=== PATIENT | female | born 1970 | race African-American/Black ===

== ENCOUNTER 2024-07-23 08:38 | Emergency (ER) | payer SELFPAY ==
[2024-07-23 08:49] VITALS: BP 145/87; PULSE 59; TEMP 36.8; O2SAT 100; BMI 44.4
--- NOTE | 2024-07-23 09:07 | ED_ITS ---
HPI HPI - General Adult General Chief complaint: Back Pain/Injury Stated complaint: FLARE UP Time Seen by Provider: 07/23/24 08:42 Source: patient Mode of arrival: Wheelchair History of Present Illness HPI narrative: Patient presents to ED complaining of right sided back pain that radiates down her right leg. She said yesterday she was working out at the [email or web address] and overdid it. She was doing water aerobics and she is trying to learn how to swim and she thinks she was arching her back too much and she tweaked her back. She said she has a history of MS and sometimes her back pain flares up. She said usually she just needs a shot of Toradol and it takes the pain and spasms away. She said she had a few severe muscle spasms on the way here in the car. Denies any neurological deficit no numbness or tingling in her legs she just has the pain that radiates down the right leg. This is typical of her back flareup. Opioid HPI Opioid Management Most Recent Opioid Data: Last Pain Scale 6 07/23/24 08:53 07/23/24 Review of Systems ROS Status of ROS 10 or more systems reviewed and unremark able except as noted in history and below PFSH PFSH Social History Little interest or pleasure in doing things: not at all Feeling down, depressed, or hopeless: not at all Exam Narrative Exam Narrative: General: alert, no acute distress Cardiovascular: regular rate and rhythm, normal peripheral perfusion. Respiratory: Lungs CTA, respirations non labored. Extremities: no deformity, no trauma. 5 out of 5 muscle strength x 4 extremities. Normal distal sensation and pulses. Tenderness in the right lumbar paraspinal Neurological: oriented x 4, LOC appropriate for age. Constitutional Vital Signs, click to edit/add: Last Vital Signs Temp 98.2 F 07/23/24 08:49 Pulse 59 L 07/23/24 08:49 Resp 18 07/23/24 08:49 BP 145/87 H 07/23/24 08:49 Pulse Ox 100 07/23/24 08:49 O2 Del Method Room Air 07/23/24 08:49 Course Vital Signs Vital signs: Vital Signs Temperature 98.2 F 07/23/24 08:49 Pulse Rate 59 L 07/23/24 08:49 Respiratory Rate 18 07/23/24 08:49 Blood Pressure 145/87 H 07/23/24 08:49 Pulse Oximetry 100 07/23/24 08:49 Oxygen Delivery Method Room Air 07/23/24 08:49 Temperature 98.2 F 07/23/24 08:49 Pulse Rate 59 L 07/23/24 08:49 Respiratory Rate 18 07/23/24 08:49 Blood Pressure 145/87 H 07/23/24 08:49 Pulse Oximetry 100 07/23/24 08:49 Oxygen Delivery Method Room Air 07/23/24 08:49 Medical Decision Making MDM Narrative Medical decision making narrative: Patient states that Toradol typically helps her back pain. She did reports m uscle spasms on the way here so I also gave her Norflex. Return to ED if worsening symptoms such as numbness weakness loss of bowel or bladder habits. Follow-up with your primary doctor or neurologist outpatient. Vital signs stable no fever. Patient is comfortable care plan for home. Differential Diagnosis Differential Diagnosis: Sciatica, lumbar strain lumbar sprain cauda equina Discharge Plan Discharge Chief Complaint: Back Pain/Injury Clinical Impression: Sciatica Patient Disposition: Home, Self-Care Time of Disposition Decision: 09:31 Condition: Good Mode of Transportation: Private Vehicle Print Language: Japanese Instructions: Acute Low Back Pain (ED) Referrals: Physician,Non-Staff, MD [Primary Care Provider] - 1 week
[2024-07-23] MEDS: ORPHENADRINE 60 MG/ 2 ML VIAL IM (09:15)
[2024-07-23] MEDS: KETOROLAC TROMETHAMINE 60 MG/2 ML VIAL IM (09:16)
== END 2024-07-23 09:38 | disposition home or self-care (01) ==
PROVIDERS: Emergency Provider Emergency Medicine
DX: M54.31 Sciatica, right side (principal); G35 Multiple sclerosis
CPT/HCPCS: 96372; 99284; J1885; J2360

== ENCOUNTER 2024-08-29 08:45 | Emergency (ER) | payer MEDICAID, SELFPAY ==
[2024-08-29 08:50] VITALS: BP 135/89; PULSE 69; TEMP 36.8; O2SAT 99; BMI 48.5
--- NOTE | 2024-08-29 09:05 | ED.NAVMDI1 ---
HPI - Nausea/Vomiting/Diarrhea General Chief complaint: Nausea/Vomiting/Diarrhea Stated complaint: flu like symptoms Time Seen by Provider: 08/29/24 08:54 Source: patient Mode of arrival: walk-in Limitations: no limitations History of Present Illness HPI Narrative: yesterday morning woke with nausea and began vomiting. Diarrhea started shortly after. Pt complains of achiness and mild headache that began this morning. She said she 'felt hot but is afebrile here. Said she tried to sip water this morning and I threw it back up . She said that her significant other has similar symptoms that began yesterday as well. Related Data Home Medications ?Medication ?Instructions ?Recorded ?Confirmed atorvastatin 20 mg tablet 20 mg PO .QHS 08/29/24 08/29/24 baclofen 20 mg tablet 20 mg PO BID 08/29/24 08/29/24 duloxetine 30 mg capsule,delayed 60 mg PO .QHS 08/29/24 08/29/24 release ergocalciferol (vitamin D2) 1,250 50,000 unit PO QWEEK 08/29/24 08/29/24 mcg (50,000 unit) capsule pregabalin 300 mg capsule 300 mg PO BID 08/29/24 08/29/24 Previous Rx's ?Medication ?Instructions ?Recorded ondansetron 4 mg disintegrating 4 mg PO Q6H PRN nausea and 08/29/24 tablet vomiting #20 tabs Allergies Allergy/AdvReac Type Severity Reaction Status Date / Time No Known Drug Allergies Allergy Verified 08/29/24 08:50 PFSH PFSH Social History Little interest or pleasure in doing things: not at all Feeling down, depressed, or hopeless: not at all Exam Narrative Exam Narrative: Nurses notes and vital signs reviewed and patient is not hypoxic. afebrile General: Well-appearing and in no apparent distress. Skin: Warm, dry, no pallor noted. Head: Normocephalic, atraumatic. Neck: Supple, non-tender. No meningismus Eye: Pupils are equal, round and EOMI. No scleral icterus. Ears, Nose, Mouth, and Throat: Oral mucosa is moist Cardiovascular: Regular Rate and Rhythm without murmur, gallop or rub. Respiratory: No accessory muscle use or respiratory distress. Lungs are clear to auscultation, no wheezing, rales or rhonchi Back: No CVA tenderness Musculoskeletal: normal ROM GI: Abdomen is soft, non-distended. Normal bowel sounds. No masses appreciated. No tenderness to palpation. No rebound, guarding, or rigidity noted. Neurological: A&O x4. No cranial nerve dysfunction observed. No truncal ataxia. Moves all extremities. Sensation intact. Psychiatric: Cooperative and interactive. Normal mood and affect. Constitutional Vital Signs, click to edit/add: Last Vital Signs Temp 98.3 F 08/29/24 08:50 Pulse 69 08/29/24 08:50 Resp 18 08/29/24 08:50 BP 135/89 08/29/24 08:50 Pulse Ox 99 08/29/24 08:50 O2 Del Method Room Air 08/29/24 08:50 Course Vital Signs Vital signs: Vital Signs Temperature 98.3 F 08/29/24 08:50 Pulse Rate 69 08/29/24 08:50 Respiratory Rate 18 08/29/24 08:50 Blood Pressure 135/89 08/29/24 08:50 Pulse Oximetry 99 08/29/24 08:50 Oxygen Delivery Method Room Air 08/29/24 08:50 Temperature 98.3 F 08/29/24 08:50 Pulse Rate 69 08/29/24 08:50 Respiratory Rate 18 08/29/24 08:50 Blood Pressure 135/89 08/29/24 08:50 Pulse Oximetry 99 08/29/24 08:50 Oxygen Delivery Method Room Air 08/29/24 08:50 MDM - Nausea/Vomiting/Diarrhea MDM Narrative Medical decision making narrative: Patient with nausea, vomiting, diarrhea. Apparently her significant other has similar symptoms. Vital signs are normal at this time. She was given an oral dissolvable tab of Zofran and monitored for about 15 to 20 minutes. On recheck her nausea had dissipated. She was able to eat a popsicle without vomiting and was given tylenol orally with some ice water. She reported resolution of her nausea and decrease in her headache. She was discharged home with prescription for odt zofran and recommendation to maintain clear liquid diet until nausea and vomiting subside. Discharge Plan Discharge Chief Complaint: Nausea/Vomiting/Diarrhea Clinical Impression: Gastroenteritis Patient Disposition: Home, Self-Care Time of Disposition Decision: 09:56 Prescriptions / Home Meds: New ondansetron 4 mg tablet,disintegrating 4 mg PO Q6H PRN (Reason: nausea and vomiting) Qty: 20 0RF No Action atorvastatin 20 mg tablet 20 mg PO .QHS baclofen 20 mg tablet 20 mg PO BID ergocalciferol (vitamin D2) 1,250 mcg (50,000 unit) capsule 50,000 unit PO QWEEK duloxetine 30 mg capsule,delayed release(DR/EC) 60 mg PO .QHS pregabalin 300 mg capsule 300 mg PO BID Print Language: Surinamese Instructions: Gastroenteritis (ED) Referrals: Physician,Non-Staff, MD [Primary Care Provider] - 1 week
[2024-08-29] MEDS: ONDANSETRON 4 MG RAPDIS TABLET SL (09:10)
[2024-08-29] MEDS: ACETAMINOPHEN 500 MG TABLET 1000 MG PO (09:43)
[2024-08-29 10:01] VITALS: BP 130/76; PULSE 64; O2SAT 98
== END 2024-08-29 10:00 | disposition home or self-care (01) ==
PROVIDERS: Emergency Provider Emergency Medicine
DX: K52.9 Noninfective gastroenteritis and colitis, unspecified (principal)
CPT/HCPCS: 99283; Q0162

== ENCOUNTER 2024-09-13 07:08 | Emergency (ER) | payer MEDICAID, SELFPAY ==
[2024-09-13 07:15] VITALS: BP 157/67; PULSE 71; TEMP 37.2; O2SAT 100; BMI 44.4
--- OUTSIDE RECORDS SUMMARY | 2024-09-13 07:21 | XMS_ITS | CCD ---
Author Organization [facility] Care Team Providers Care Director Private Music Therapy Agency Name Role Phone CLINKER, GORAN Admitting Unavailable HESS, AQUILES S Attending Unavailable CLINKER, GORAN Consulting Unavailable FAMILY, HEALTH SERVICES Consulting Unavaila ble HESS, AQUILES S Admitting Unavailable HESS, AQUILES S Attending Unavailable FAMILY, HEALTH SERVICES Primary Care Unavaila ble HESS, AQUILES S Consulting Unavailable HESS, AQUILES S Admitting Unavailable HESS, AQUILES S Attending Unavailable FAMILY, HEALTH SERVICES Primary Care Unavaila ble CLINKER, GORAN Consulting Unavailable CLINKER, GORAN Admitting Unavailable CLINKER, GORAN Attending Unavailable SELF, REFERRED Referring [facility] Primary Care Unavailable ANUSHA SALVADOR Admitting Unavailable ANUSHA SALVADOR Attending Unavailable Spasic, Robe E Unavailable Schwerer DO, Rina E Primary Care Provider [phone] Schwerer DO, Rina E Unavailable Schwerer, Rina Unavailable Spasic, Robe E Unavailable Schwerer DO, Rina E Primary Care Provider Schwerer DO, Rina E Unavailable Spasic, Robe E Unavailable Schwerer DO, Rina E Primary Care Provider [phone] Schwerer DO, Rina E Unavailable Spasic, Robe E Unavailable Schwerer DO, Rina E Primary Care Provider Schwerer DO, Rina E Unavailable Schwerer, DO Rina E Primary Care Provider [phone] Schwerer, DO Rina E Attending Provider [facility], [facility] Primary Care Provider ROBERT MckeonC Robe Garnica Referring Provider [phone] MARINO Gonzáles Attending Provider Schwerer, DO Rina E Primary Care Provider Tupa, DO Jaswant Crowley Emergency Provider Sandro Burgos MD Primary Care Prov ider Spasi SPEECH LANGUAGE THERAPIST, Robe Garnica Unavailable Schwerer DO, Rina E Unavailable Unavailable Primary Care Provider Unavailabl danika Almeidar, DO Rina E Primary Care Provider MD Sandro Burgos Attending Provide r JEFFERY CANTU Referring Unavailable RAN JOSÉ Referring Unavailable JEFFERY CANTU Attending Unavailable JEFFERY CANTU Referring Unavailable OSMAN BOWMAN Attending Unavailable COLLINS GALLO Primary Care Unavailable PAM ASHER Referring Unavailable PAM ASHER Referring Unavailable PAM ASHER Referring Unavailable Sandro Burgos MD Primary Care Prov ider NO FAMILY, PHYSICIAN Primary Care Provider Unava ilable REAL Kemp Attending Provider Schwerer, Rina E Primary Care Unavailable Jaswant Freitas Attending Unavailable Jaswant Freitas Admitting Unavailable Sandro Burgos Attending Unav ailable Sandro Burgos Admitting Unav ailable Schwerer, Rina E Primary Care Unavailable Raymond Kemp Attending Unavailable Raymond Kemp Admitting Unavailable NO FAMILY, PHYSICIAN Primary Care Unavailable Kim RPh, Paulo Unavailable Unavailable Schwerer DO, Rina E Unavailable Unavailable Primary Care Provider Unavailabl e SARAIYA, YOUSIF Attending Unavailable NAIN YOUSIF Admitting Unavailable REQUEST, IP PHYSICAL THERAPY SERVICE Consulting Unavailable REQUEST, IP OCCUPATIONAL THERAPY SERVICE Consult ing Unavailable CONSULT, IP NEUROLOGY Consulting Unavailabl e CONSULT, IP OPHTHAMOLOGY Consulting Unavail able PROVIDER, UNKNOWN Admitting Unavailable PROVIDER, UNKNOWN Attending Unavailable Kelly CATALYST IMPREGNATOR.COMPENSATION CONSULTING MANAGERAlpa Unavailable Larry CATALYST IMPREGNATOR.COMPENSATION CONSULTING MANAGER, Ciera Moore Unavailable [phone] SABINO HINOJOSA, SANDRO Primary Care Unav ailable RAYMOND KEMP Attending Unavailable GALLO URMILA, SANDRO Primary Care Unav ailable SAL MALLOY Attending Unavailable FREDA HERNANDEZ Attending Unavailable SAL MALLOY Referring Unavailable GALLO URMILA, SANDRO Primary Care Unav ailable RAYMOND KEMP Attending Unavailable GALLO URMILA, SANDRO Primary Care Unav ailable GALLO URMILA, SANDRO Primary Care Unav ailable FREDA HERNANDEZ Referring Unavailable RAYMOND KEMP Attending Unavailable GALLO URMILA, SANDRO Primary Care Unav ailable GALLO URMILA, SANDRO Primary Care Unav ailable RAYMOND KEMP Referring Unavailable GALLO URMILA, SANDRO Primary Care Unav ailable RAYMOND KEMP Referring Unavailable GALLO URMILA, SANDRO Primary Care Unav ailable RAYMOND KEMP Referring Unavailable FREDA HERNANDEZ Attending Unavailable GALLO URMILA, SANDRO Primary Care Unav ailable GALLO URMILA, SANDRO Primary Care Unav ailable RAYMOND KEMP Referring Unavailable RAYMOND KEMP Attending Unavailable GALLO URMILA, SANDRO Primary Care Unav ailable Allergies Allergy Classification Reported Allergen(s) Allergy Type Date of Onset Reaction(s) Facility [facility] (1 source) traMADol Drug Allergy 0 [facility] (3 sources) NSAIDs; Translations: [NSAIDS (NON-STEROIDAL ANTI-INFLAMMATO RY DRUG)] Drug allergy (disorder) 0 [facility] (5 sources) Non-steroidal anti-inflammato ry agent Drug Allergy 0 Other: See [facility] (20 sources) traMADol; Translations: [TRAMADOL] Drug Allergy 0 Other: See Comments, [facility] (16 sources) NSAIDs Propensity to adverse reactions 4 Unknown [facility] (20 sources) Non-steroidal anti-inflammato ry agent Drug Allergy 0 Other: See Comments, [facility] (6 sources) NSAIDS (Non-Steroidal Anti-Inflamma; Translations: [NSAIDS (Non-Steroidal Anti-Inflamma] Allergy to substance 2 Rash [facility] (1 source) traMADol Drug Allergy 3 [facility] Repository Medications Current Medications Medication Drug Class(es) Dates Sig (Normalized) Sig (Original) atorvastatin 20 mg oral tablet (20 sources) HMG-CoA Reductase Inhibitor Start: 07-28-2019 End: 01-30-2025 take 1 tablet by mouth once daily atorvastatin (LIPITOR) 20 mg tablet Indications: Mixed hyperlipidemia Take 1 tablet by mouth once daily. 90 tablet 01/31/2024 01/30/2025 Active Comment on above: Take 20 mg by mouth once daily. Take 1 tablet by janeth th once daily. cetirizine hydrochloride 10 mg oral tablet (17 sources) Histamine-1 Receptor Antagonist Start: 08-22-2021 take 1 tablet by mouth every twenty-four hours Cetirizine HCl 10 MG 1 tablet Orally Once a day for 30 day(s) Aug, Active Start: 08-22-2021 End: 08-17-2022 cetirizine (ZYRTEC) 10 mg ta blet Take by mouth q 24 HR. 0 08/22/2021 08/17/2022 Discontinued (Course of therapy completed) Comment on above: Take by mouth q 24 H R. DULoxetine 60 mg delayed release oral capsule (20 sources) Serotonin and Norepinephrine Reuptake Inhibitor Start: 4 take 2 capsules by mouth at bedtime DULoxetine (CYMBALTA) 30 MG capsule Take 60 mg by mouth at bedtime. 05/08/2024 Active Start: 10-04-2023 End: 11-19-2024 take 1 capsule by mouth once daily at bedtime DULoxetine (CYMBALTA) 60 mg capsule Indications: Multiple sclerosis (HCC) , Neuropathic pain Take 1 capsule by mouth daily at bedtime. 90 capsule 08/21/2024 11/19/2024 Active Start: 08-30-2023 End: 08-21-2024 take 1 capsule by mouth once daily at bedtime, then take 2 capsules by mouth once daily at bedtime DULoxetine (CYMBALTA) 30 mg capsule Indications: Multiple sclerosis (HCC) , Neuropathic pain Take 1 capsule by mouth daily at bedtime for 7 days, THEN 2 capsules daily at bedtime. 67 capsule 05/08/2024 08/21/2024 Discontinued Start: 12-10-2020 End: 01-18-2021 take 60 mg by mouth once daily at bedtime Duloxetine Discontinued 60 MG PO Daily at bedtime December 10, 2020 12:00am January 18, 2021 3:46am Comment on above: Take 1 capsule by mo uth daily at bedtime for 7 days, THEN 2 capsules daily at bedtime. Take 1 capsule by mo uth daily at bedtime. Patient should start on October 04, 2023. ergocalciferol 1.25 mg oral capsule (20 sources) Provitamin D2 Compound Start: 07-06-20 End: 02-18-20 take 1 capsule by mouth every week ergocalciferol 50,000 unit capsule (VITAMIN D2, DRISDOL) Indications: Multiple sclerosis (HCC) , Vitamin D deficiency Take 1 capsule by mouth one time a week. 12 capsule 1 08/21/2024 02/17/2025 Active Start: 08-23-2020 End: 08-17-2022 take 1 capsule by mouth every week ergocalciferol 50,000 unit capsule (VITAMIN D2, DRISDOL) Take 1 capsule by mouth one time a week. 12 capsule 1 08/23/2020 08/17/2022 Discontinued (Course of therapy completed) Comment on above: Take 1 capsule by mo uth one time a week. eucalyptol 0.92 mg/ml / menthol 0.42 mg/ml / methyl salicylate 0.6 mg/ml / thymol 0.64 mg/ml mouthwash (3 sources) Start: 023 take 15 mL by mouth every eight hours as needed Mouthwashes (Biotene Dry Mouth) LIQD 15 mL by Transmucosal route every 8 hours as needed. 07/19/2023 Active famotidine 20 mg oral tablet (20 sources) Histamine-2 Receptor Antagonist Start: End: take 1 tablet by mouth twice daily famotidine (PEPCID) 20 mg tablet Take 20 mg by mouth two times a day. 08/13/2023 Active Comment on above: Take 20 mg by mouth two times a day. fluocinonide 0.0005 mg/mg topical ointment (3 sources) Corticosteroid Start: FLUOCINONIDE 0.05 % EX OINT Indications: Other psoriasis Apply to affected area of palm BID 30 gm 1 09/14/2006 Active hydrocortisone 5 mg/ml topical cream (20 sources) Corticosteroid Start: End: hydrocortisone 0.5 % cream Indications: Rash APPLY TO AFFECTED AREA TWO TIMES A DAY FOR 7 DAYS. 56.8 g 01/31/2024 01/30/2025 Active Start: 09-20-2023 End: 09-20-2023 hydrocortisone 0.5 % ointmen t Indications: Rash Apply to affected area two times a day for 7 days. 56 g 0 09/20/2023 09/20/2023 Discontinued Comment on above: Apply to affected ar ea two times a day for 7 days. ketorolac tromethamine 10 mg oral tablet (18 sources) Nonsteroidal Anti-inflammatory Drug, Cyclooxygenase Inhibitor Start: End: take 1 tablet by mouth every six hours as needed keTORolac (TORADOL) 10 mg tablet Indications: Fibroids Take 1 tablet by mouth every 6 hours as needed. Do not use while taking NSAIDs including ibuprofen 20 tablet 1 08/21/2024 Active Start: 08-13-2023 End: 08-13-2023 ketorolac (TORADOL) injectio n 30 mg lidocaine 0.05 mg/mg medicated patch (20 sources) Antiarrhythmic, Amide Local Anesthetic Start: 07-10-2024 apply 2 doses transdermal route every twenty-four hours 2 Patch, Transdermal, EVERY 24 HOURS, First dose on Sun07/10/24 at 0900, Until Discontinued Start: 07-08-2024 End: 07-08-2024 apply 1 dose transdermal route every twenty-four hours 1 Patch, Transdermal, EVERY 24 HOURS, First dose on 12/3/24 at 1000, Until Discontinued Start: 07-07-2024 End: 07-08-2024 apply 2 doses transdermal route every twenty-four hours 2 Patch, Transdermal, EVERY 24 HOURS, First dose on Sun07/07/24 at 1455, Until Discontinued Start: 07-19-2023 End: 08-21-2024 apply 1 dose transdermal route once daily, then apply 1 dose transdermal route every twelve hours lidocaine (LIDODERM) 5 % Indications: Multiple sclerosis (HCC) , Chronic bilateral low back pain without sciatica Apply 1 Patch as directed once daily. to affected area. Remove patch after 12 hours. 15 Patch 1 08/21/2024 Active Start: 06-16-2022 Lidocaine 5 % 1 patch remove after 12 hours Externally Once a day for 30 days Jun, Active Start: 08-30-2021 End: 08-21-2024 apply 1 dose transdermal route once daily lidocaine HCL 4 % ptmd Indications: Pelvic pain in female Apply 1 Patch to affected area once daily. 15 Patch 1 08/30/2021 08/21/2024 Discontinued Start: 08-30-2021 apply 1 dose transde rmal route once daily lidocaine HCL 4 % ptmd Indications: Pelvic pain in female Apply 1 Patch to affected area once daily. 15 Patch 1 08/30/2021 Active Start: 01-07-2021 End: 01-18-2021 apply 1 dose topically once daily Lidocaine (Lidoderm) 5 % adhesive patch,medicated Discontinued 1 PATCH TOPICAL Daily January 07, 2021 12:00am January 18, 2021 3:46am leave on most painful area for up to 12 hrs Start: 12-10-2020 End: 01-18-2021 apply 1 dose topically once daily Lidocaine (Lidocaine Pain Relief) 4 % Adhesive Patch,Medicated Discontinued 1 PATCH TOPICAL Daily December 10, 2020 12:00am January 18, 2021 3:46am Comment on above: Apply 1 Patch to aff ected area once daily. Apply 1 Patch as dir ected once daily. to affected area. Remove patch after 12 hours. nystatin 100 unt/mg topical powder (6 sources) Polyene Antifungal Start: 01-31-2024 End: 02-07-2024 nystatin (MYCOSTATIN) powder Indications: Rash Apply 1 application to affected area two times a day for 7 days. 1 g 0 01/31/2024 02/07/2024 Active Start: 09-20-2023 End: 09-27-2023 nystatin (MYCOSTATIN) powder Indications: Rash Apply 1 application to affected area two times a day for 7 days. 1 g 0 09/20/2023 09/27/2023 Active Comment on above: Apply 1 application to affected area two times a day for 7 days. ozanimod 0.92 mg oral capsule (20 sources) Start: 1 End: 4 take 1 capsule by mouth once daily ozanimod (ZEPOSIA) 0.92 mg capsule Indications: Multiple sclerosis (HCC) Take 1 capsule by mouth once daily. 30 capsule 3 07/02/2024 Active Comment on above: Take 1 capsule by [facility] once daily polyethylene glycol 3350 29099 mg powder for oral solution (20 sources) Osmotic Laxative Start: 3 End: 4 polyethylene glycol 3350 (MIRALAX) 17 gram/dose powder Indications: Constipation, unspecified constipation type Take 17 g by mouth two times a day. Dissolve dose in 4 - 8 ounces of liquid and take as directed. 1020 g 5 07/19/2023 01/15/2024 Active Comment on above: Take 17 g by mouth t wice daily. Dissolve dose in 4 - 8 ounces of liquid and take as directed. Take 17 g by mouth t wo times a day. Dissolve dose in 4 - 8 ounces of liquid and take as directed. pregabalin 300 mg oral capsule (20 sources) Start: 4 take 300 mg by mouth twice daily 300 mg, Oral, 2 TIMES DAILY, First dose on Sun07/09/24 at 1000, Until Discontinued Start: 07-07-2024 End: 07-07-2024 take 1 dose by mouth once 300 mg, Oral, Once, 1 dose, On Sun07/07/24 at 1705 Start: 05-21-2023 End: 09-20-2024 take 1 capsule by mouth twice daily pregabalin (LYRICA) 300 mg capsule Indications: Multiple sclerosis (HCC) , Neuropathic pain Take 1 capsule by mouth two times a day for 30 days. 60 capsule 08/21/2024 09/20/2024 Active Start: 09-26-2021 End: 05-18-2023 take 1 capsule by mouth twice daily pregabalin (LYRICA) 300 mg capsule Indications: Neuropathic pain , Multiple sclerosis (HCC) Take 1 capsule by mouth twice daily for 30 days. 60 capsule 0 04/18/2023 05/18/2023 Active Start: 12-23-2019 End: 12-05-2020 take 150 mg by mouth twice daily Pregabalin Active 150 MG PO Twice daily December 05, 2020 12:00am Comment on above: Take 1 capsule by mo uth twice daily for 180 days. Take 1 capsule by mo uth twice daily for 30 days. Take 1 capsule by mo uth two times a day for 120 days. salicylic acid 60 mg/ml topical cream (3 sources) Start: 08-21-2006 SALEX 6 % EX CREA apply to affected areas bid 1 large trade 1 08/21/2006 Active 5 ml sodium chloride 9 mg/ml injection (1 source) Start: 08-14-2023 End: 08-15-2023 sodium chloride flush 0.9 % injection 5-40 mL Completed/Discontinued Medications Medication Drug Class(es) Dates Sig (Normalized) Sig (Original) acetaminophen 500 mg oral tablet (20 sources) Start: 07-09-2024 take 500 mg by mouth every six hours 500 mg, Oral, Every 6 hours, First dose (after last modification) on Sun07/09/24 at 1000, Until Discontinued Start: 07-07-2024 End: 07-09-2024 500 mg, Oral, EVERY 8 HOURS PRN, Starting on Sun07/07/24 at 1646, Until Sun07/09/24 at 0912, Mild Pain (pain score 1,2,3), Moderate Pain (pain score 4,5,6), Severe Pain (pain score 7,8,9,10) Start: 07-19-2023 take 2 tablets by mo uth three times daily as needed for pain acetaminophen (TYLENOL EXTRA STRENGTH) 500 mg tablet Indications: Breast pain in female Take 2 tablets by mouth three times a day as needed for pain. 60 tablet 3 07/19/2023 Active Comment on above: Take 2 tablets by mo uth three times a day as needed for pain. acetaminophen 300 mg / codeine phosphate 30 mg oral tablet (7 sources) Opioid Agonist Start: End: 3 acetaminophen-codeine (TYLENOL-COD #3) 300-30 mg per tablet Take by mouth. 0 08/03/2019 08/17/2022 Discontinued (Course of therapy completed) Comment on above: Take by mouth. acetaminophen 325 mg / HYDROcodone bitartrate 5 mg oral tablet (15 sources) Opioid Agonist Start: 1 End: 1 take 1 tablet by mouth every four to six hours Hydrocodone-Acetamino phen Discontinued 1 TAB PO EVERY 4-6 HOURS 10 January 07, 2021 January 18, 2021 3:46am Start: 12-23-2019 End: 12-23-2019 take 1 tablet by mouth every four to six hours Hydrocodone-Acetaminophen (Leroy) 5-325 mg Tablet Discontinued 1 TAB PO EVERY 4-6 HOURS December 23, 2019 12:00am December 23, 2019 10:26am Start: 11-07-2018 End: 2018 take 1 tablet by mouth every six hours Hydrocodone-Acetaminophen (Leroy) 5-325 mg tablet Discontinued 1 TAB PO Q6H 5 2 November 07, 2018 2018 12:02am acetaminophen 325 mg / oxyCODONE hydrochloride 5 mg oral tablet (5 sources) Opioid Agonist Start: 08-14-2020 End: 12-04-2020 take 1 tablet by mouth every six hours Oxycodone-Acetaminophen (Percocet) 5-325 mg tablet Discontinued 1 TAB PO Q6H 5 2 August 14, 2020 December 04, 2020 6:31pm albuterol 0.833 mg/ml / ipratropium bromide 0.167 mg/ml inhalation solution (1 source) Anticholinergic, beta2-Adrenergic Agonist Start: 07-07-2024 End: 07-07-2024 3 mL, Nebulization, STAT, 1 dose, On 07/07/24 at 1223 ARIPiprazole 30 mg oral tablet (12 sources) Atypical Antipsychotic Start: 12-23-2019 End: 08-17-2022 take 1 tablet by mouth once daily Aripiprazole (Abilify) 30 mg Tablet Discontinued 30 MG PO Daily December 23, 2019 12:00am December 04, 2020 10:12pm Comment on above: 30 mg. baclofen 20 mg oral tablet (20 sources) gamma-Aminobutyri c Acid-ergic Agonist Start: 07-07-2024 take 40 mg by mouth at bedtime 40 mg, Oral, AT BEDTIME, First dose on Sun07/07/24 at 2200, Until Discontinued Start: 07-19-2023 take 1 tablet by janeth th in the morning, then take 2 tablets by mouth in the evening baclofen 20 mg tablet Indications: Multiple sclerosis (HCC) , Spasticity Take 1 tablet (20mg) by mouth in the morning and afternoon and 2 tablets (40 mg) by mouth in the evening 360 tablet 1 01/31/2024 Active Start: 12-05-2020 End: 01-31-2024 take 1 tablet by mouth in the morning, then take 2 tablets by mouth in the evening baclofen 20 mg tablet Indications: Multiple sclerosis (HCC) , Spasticity Take 1 tablet (20mg) by mouth in the morning and afternoon and 2 tablets (40 mg) by mouth in the evening 360 tablet 1 01/31/2024 Active Start: 12-23-2019 End: 12-05-2020 take 20 mg by mouth three times daily Baclofen Discontinued 20 MG PO Three times daily December 23, 2019 12:00am December 05, 2020 3:20am Comment on above: Take 1 tablet by janeth th three times daily. Take 1 tablet (20mg) by mouth in the morning and afternoon and 2 tablets (40 mg) by mouth in the evening BIOTENE MOISTURIZING MOUTH spray SOLN (1 source) Start: take 1 spray(s) by mouth every four hours as needed 1 Redkey, Topical, EVERY 4 HOURS PRN, Starting on Sun07/09/24 at 0922, Until Discontinued, Dry Mouth 12 hr buPROPion hydrochloride 150 mg extended release oral tablet (5 sources) Aminoketone Start: End: take 150 mg by mouth twice daily Bupropion Hcl Discontinued 150 MG PO Twice daily January 18, 2021 12:00am January 25, 2021 1:04pm carbamide peroxide 65 mg/ml otic solution (5 sources) Start: End: Carbamide Peroxide (Debrox) 6.5 % drops Discontinued 5 DROPS OTIC Twice daily 4 January 18, 2018 12:00am January 22, 2018 12:01am tilt head to instill into ear; keep head tilted for 2-[address] cotton in ear cephalexin 500 mg oral capsule (5 sources) Cephalosporin Antibacterial Start: 018 End: take 1000 mg by mouth every twelve hours Cephalexin Discontinued 1000 MG PO Q12H 28 February 20, 2018 12:00am February 27, 2018 12:01am cholecalciferol 0.05 mg oral tablet (3 sources) Vitamin D Start: End: cholecalciferol (VITAMIN D3) 50 mcg (2,000 unit) tablet Cholecalciferol (VITAMIN D) 50 MCG (2000 UT) CAPS capsule Take 50,000 Units by mouth once a week 0 Active cyclobenzaprine hydrochloride 10 mg oral tablet (12 sources) Muscle Relaxant Start: 07-28-2019 End: 08-17-2022 take 10 mg by mouth three times daily Cyclobenzaprine Discontinued 10 MG PO Three times daily July 28, 2019 11:55am August 14, 2020 5:17pm Comment on above: 10 mg. diazePAM 5 mg oral tablet (7 sources) Benzodiazepine Start: 08-11-2019 End: 08-17-2022 diazePAM (VALIUM) 5 mg tablet Take 5 mg by mouth. 0 08/11/2019 08/17/2022 Discontinued (Course of therapy completed) Comment on above: Take 5 mg by mouth. diphenhydrAMINE hydrochloride 25 mg oral capsule (5 sources) Histamine-1 Receptor Antagonist Start: 07-28-2019 End: 12-23-2019 take 1 capsule by mouth once daily Diphenhydramine Hcl (Banophen) 25 mg capsule Discontinued 25 MG PO Daily July 28, 2019 1:00am December 23, 2019 9:28am docusate sodium 100 mg oral capsule (12 sources) Start: 05-08-2024 End: 08-06-2024 take 1 capsule by mouth twice daily as needed for constipation docusate sodium (COLACE) 100 mg capsule Indications: Multiple sclerosis (HCC) Take 1 capsule by mouth two times a day as needed for constipation. 60 capsule 2 05/08/2024 06/05/2024 Discontinued Start: 11-07-2018 End: 11-21-2018 take 1 capsule by mouth once daily Docusate Sodium (Colace) 100 mg capsule Discontinued 100 MG PO Daily 14 November 07, 2018 12:00am November 21, 2018 12:02am 0.4 ml enoxaparin sodium 100 mg/ml prefilled syringe (1 source) Low Molecular Weight Heparin Start: 07-07-2024 inject 40 mg by subcutaneous injection once daily 40 mg, Subcutaneous, DAILY, First dose on Sun07/07/24 at 1717, Until Discontinued gadoteridol (PROHANCE) injection 19 mL (1 source) Start: 08-13-2023 End: 08-13-2023 gadoteridol (PROHANCE) injection 19 mL hydroCHLOROthiazide 25 mg oral tablet (7 sources) Thiazide Diuretic Start: 01-15-2022 End: 08-17-2022 hydroCHLOROthiazide (HYDRODIURIL, ESIDRIX) 25 mg tablet hydrocortisone acetate 10 mg/ml / pramoxine hydrochloride 10 mg/ml rectal foam (5 sources) Corticosteroid Start: 11-07-2018 End: 07-28-2019 Hydrocortisone-Pramox ine (Proctofoam Hc) 1-1 % foam Discontinued 1 APPLIC NV Daily November 07, 2018 12:00am July 28, 2019 10:57am hydrOXYzine pamoate 50 mg oral capsule (20 sources) Antihistamine Start: 01-13-2022 End: 07-19-2023 hydrOXYzine pamoate (VISTARIL) 50 mg capsule Start: 12-10-2020 End: 01-25-2021 take 50 mg by mouth every six hours Hydroxyzine Pamoate Discontinued 50 MG PO Q6H 20 December 10, 2020 12:00am January 25, 2021 1:04pm iohexol (OMNIPAQUE) 350 MG/ML injection (1 source) Start: 07-07-2024 End: 07-07-2024 take 1 dose intravenously once 100 mL, Intravenous Push, Once at Radiology exam, 1 dose, Starting on Sun07/07/24 at 1532, Until Sun07/07/24 at 1552, Imaging Protocol Orders iopamidol (ISOVUE-370) 76 % injection 75 mL (1 source) Start: 08-13-2023 End: 08-13-2023 iopamidol (ISOVUE-370) 76 % injection 75 mL iv contrast (will be provided with radiology test) (20 sources) Start: 05-08-2024 End: 05-09-2024 iv contrast (will be provided with radiology test) Indications: Multiple sclerosis (HCC) MRI CSP Inject, intravenously, once for 1 dose. No IV access, insert saline lock prior to the beginning of sedation, infusion, injection of imaging exam. Discontinue saline lock post exam. If Pt. has a central line or IVAD, may access for administration according to line specific nursing protocol. Once exam is complete flush line and de-access according to line specific nursing protocol in the MR contrast administration guidelines link. 1 Each 05/08/2024 05/09/2024 Start: 05-08-2024 End: 05-09-2024 iv contrast (will be provide d with radiology test) Indications: Multiple sclerosis (HCC) MRI CSP Inject, intravenously, once for 1 dose. No IV access, insert saline lock prior to the beginning of sedation, infusion, injection of imaging exam. Discontinue saline lock post exam. If Pt. has a central line or IVAD, may access for administration according to line specific nursing protocol. Once exam is complete flush line and de-access according to line specific nursing protocol in the MR contrast administration guidelines link. 1 Each 05/08/2024 05/09/2024 Active Start: 01-31-2024 End: 02-01-2024 inject 1 dose intravenously once iv contrast (will be provided with radiology test) Indications: Multiple sclerosis (HCC) , Encounter for medication monitoring MRI Brain Inject, intravenously, once for 1 dose.No IV access, insert saline lock prior to beginning of sedation, infusion, injection of imaging exam.Discontinue saline lock post exam. If Pt. has a central line or IVAD, may access for administration according to line specific nursing protocol.Once exam is complete flush line and de-access according to line specific nursing protocol in the MR contrast administration guidelines link 1 Each 0 01/31/2024 02/01/2024 Active Start: 07-19-2023 End: 01-31-2024 inject 1 dose intravenously once iv contrast (will be provided with radiology test) Indications: Multiple sclerosis (HCC) , Demyelinating disease of central nervous system (HCC) MRI TSP Inject, intravenously, once for 1 dose. No IV access, insert saline lock prior to the beginning of sedation, infusion, injection of imaging exam. Discontinue saline lock post exam. If Pt. has a central line or IVAD, may access for administration according to line specific nursing protocol. Once exam is complete flush line and de-access according to line specific nursing protocol in the MR contrast administration guidelines link. 1 Each 0 07/19/2023 01/31/2024 Discontinued (Course of therapy completed) Start: 07-19-2023 inject 1 dose intravenously on ce iv contrast (will be provided with radiology test) Indications: Multiple sclerosis (HCC) , Demyelinating disease of central nervous system (HCC) MRI TSP Inject, intravenously, once for 1 dose. No IV access, insert saline lock prior to the beginning of sedation, infusion, injection of imaging exam. Discontinue saline lock post exam. If Pt. has a central line or IVAD, may access for administration according to line specific nursing protocol. Once exam is complete flush line and de-access according to line specific nursing protocol in the MR contrast administration guidelines link. 1 Each 0 07/19/2023 Active Start: 04-18-2023 End: 04-19-2023 inject 1 dose intravenously once iv contrast (will be provided with radiology test) MRI Brain Inject, intravenously, once for 1 dose.No IV access, insert saline lock prior to beginning of sedation, infusion, injection of imaging exam.Discontinue saline lock post exam. If Pt. has a central line or IVAD, may access for administration according to line specific nursing protocol.Once exam is complete flush line and de-access according to line specific nursing protocol in the MR contrast administration guidelines link 1 Each 0 04/18/2023 04/19/2023 Active Start: 04-18-2023 End: 04-19-2023 iv contrast (will be provide d with radiology test) MRI CSP Inject, intravenously, once for 1 dose. No IV access, insert saline lock prior to the beginning of sedation, infusion, injection of imaging exam. Discontinue saline lock post exam. If Pt. has a central line or IVAD, may access for administration according to line specific nursing protocol. Once exam is complete flush line and de-access according to line specific nursing protocol in the MR contrast administration guidelines link. 1 Each 0 04/18/2023 04/19/2023 Active Comment on above: MRI Brain Inject, in travenously, once for 1 dose.No IV access, insert saline lock prior to beginning of sedation, infusion, injection of imaging exam.Discontinue saline lock post exam. If Pt. has a central line or IVAD, may access for administration according to line specific nursing protocol.Once exam is complete flush line and de-access according to line specific nursing protocol in the MR contrast administration guidelines link MRI CSP Inject, intr avenously, once for 1 dose. No IV access, insert saline lock prior to the beginning of sedation, infusion, injection of imaging exam. Discontinue saline lock post exam. If Pt. has a central line or IVAD, may access for administration according to line specific nursing protocol. Once exam is complete flush line and de-access according to line specific nursing protocol in the MR contrast administration guidelines link. MRI TSP Inject, intr avenously, once for 1 dose. No IV access, insert saline lock prior to the beginning of sedation, infusion, injection of imaging exam. Discontinue saline lock post exam. If Pt. has a central line or IVAD, may access for administration according to line specific nursing protocol. Once exam is complete flush line and de-access according to line specific nursing protocol in the MR contrast administration guidelines link. loxapine 25 mg oral capsule (5 sources) Start: 2017 End: 2018 take 25 mg by mouth once daily Loxapine Succinate Discontinued 25 MG PO Daily January 18, 2018 12:00am July 28, 2019 10:57am methocarbamol 500 mg oral tablet (1 source) Muscle Relaxant Start: 2023 End: 2023 750 mg, Oral, STAT, 1 dose, On Sun07/07/24 at 1455 methylPREDNISolone sodium (SOLU-MEDROL) 1,000 mg in sodium chloride 0.9 % 250 mL IVPB (2 sources) Start: 2023 End: 2023 methylPREDNISolone sodium (SOLU-MEDROL) 1,000 mg in sodium chloride 0.9 % 250 mL IVPB Start: 08-13-2023 End: 08-13-2023 methylPREDNISolone sodium (S ISABEL-MEDROL) 1,000 mg in sodium chloride 0.9 % 250 mL IVPB methylPREDNISolone sodium succinate (SOLU-Medrol) 1,000 mg in dextrose 5 % 100 mL ivpb (custom dose) (2 sources) Start: 07-10-2024 End: 07-10-2024 1,000 mg, Intravenous, EVERY 18 HOURS, 1 dose, First dose (after last modification) on Alla 07/10/24 at 0700 Start: 07-08-2024 End: 07-09-2024 1,000 mg, Intravenous, EVERY 18 HOURS, 4 doses, First dose on Sun07/08/24 at 1900, Last dose on Sun07/11/24 at 0100 mirtazapine 7.5 mg oral tablet (8 sources) take 1 tablet by mouth every twenty-four hours Mirtazapine 7.5 MG 1 tablet at bedtime Orally Once a day Not-Taking nicotine 2 mg chewing gum (20 sources) Cholinergic Nicotinic Agonist Start: 08-27-19 End: 06-05-20 apply 1 dose transdermal route every twenty-four hours nicotine (NICODERM) 14 mg/24 hr Indications: Current every day smoker Apply 1 Patch as directed every 24 hours. 28 Patch 2 08/27/2023 06/05/2024 Discontinued Start: 08-27-2023 End: 06-05-2024 take 1 dose by mouth every hour as needed nicotine polacrilex (NICORETTE) 2 mg gum Indications: Current every day smoker Take 1 Each by mouth every hour as needed. Max 20 pieces in 1 day. 100 Each 08/27/2023 06/05/2024 Discontinued Comment on above: Apply 1 Patch as dir ected every 24 hours. Take 1 Each by mouth every hour as needed. Max 20 pieces in 1 day. OLANZapine 5 mg oral tablet (5 sources) Atypical Antipsychotic Start: 1 End: 1 take 5 mg by mouth every six hours Olanzapine Discontinued 5 MG PO Q6H 20 14 December 10, 2020 12:00am January 18, 2021 3:46am 2 ml ondansetron 2 mg/ml injection (1 source) Serotonin-3 Receptor Antagonist Start: 4 End: 4 ondansetron (ZOFRAN) injection 4 mg ONE DAILY ESSENTIAL 400 mcg (20 sources) Start: 0 End: 3 take 1 tablet by mouth once daily ONE DAILY ESSENTIAL 400 mcg Take 1 tablet by mouth once daily. 0 01/10/2020 08/17/2022 Discontinued (Course of therapy completed) Start: 01-10-2020 take 1 tablet by janeth once daily ONE DAILY ESSENTIAL 400 mcg Take 1 tablet by mouth once daily. 0 01/10/2020 Active Comment on above: Take 1 tablet by janeth once daily. Ozanimod (4 sources) Start: 08-14-2020 End: 12-05-2020 take 1 capsule by mouth once daily Ozanimod (Zeposia Starter Kit) 0.23-0.46-0.92 mg capsule,dose pack Discontinued 1 CAP PO Daily August 14, 2020 12:00am December 05, 2020 2:21am Start: 08-14-2020 End: 12-05-2020 take 1 capsule by mouth once daily Ozanimod (Zeposia Starter Kit) 0.23-0.46-0.92 mg capsule,dose pack Discontinued 1 CAP PO Daily August 14, 2020 1:00am December 05, 2020 3:21am Ozanimod (Zeposia Starter Kit) 0.23-0.46-0.92 mg capsule,dose pack (1 source) Start: 08-14-2020 End: 12-05-2020 take 1 capsule by mouth once daily Ozanimod (Zeposia Starter Kit) 0.23-0.46-0.92 mg capsule,dose pack Discontinued 1 CAP PO Daily August 14, 2020 12:00am December 05, 2020 2:21am predniSONE 50 mg oral tablet (20 sources) Start: 08-13-2023 End: 08-13-2023 predniSONE (DELTASONE) 50 MG tablet Take 25 tablets by mouth daily for 2 days 50 tablet 0 08/13/2023 08/13/2023 Discontinued (Medication Route Change) Start: 06-24-2021 take 2 tablets by mo [facility] every twenty-four hours Start: 01-18-2021 End: 04-08-2023 Prednisone Discontinued 0 MG PO Daily January 18, 2021 12:00am April 08, 2023 7:05am Start: 08-14-2020 End: 12-04-2020 take 60 mg by mouth once daily at mealtime Prednisone Discontinued 60 MG PO Daily August 14, 2020 1:00am December 04, 2020 6:31pm administer with food or milk Start: 07-28-2019 End: 12-23-2019 take 60 mg by mouth once daily Prednisone Discontinued 60 MG PO Daily July 28, 2019 1:00am December 23, 2019 9:28am rOPINIRole 0.5 mg oral tablet (18 sources) Nonergot Dopamine Agonist Start: 12-23-2019 End: 08-17-2022 take 0.5 mg by mouth once daily at bedtime Ropinirole Discontinued 0.5 MG PO Daily at bedtime December 05, 2020 12:00am January 25, 2021 1:04pm Comment on above: TAKE 1/2 A TABLET BY MOUTH NIGHTLY FOR 2 NIGHTS, THEN 1 TABLET 1 3 HOURS PRIOR TO BEDTIME THEREAFTER 0.5 mg. saliva substitute combo no.9 (BIOTENE DRY MOUTH ORAL RINSE) mwsh (20 sources) Start: 05-08-2024 End: 06-05-2024 take 15 mL by mouth three times daily as needed saliva substitute combo no.9 (BIOTENE DRY MOUTH ORAL RINSE) mwsh Indications: Multiple sclerosis (HCC) , History of dry mouth Use 15 mL as instructed three times a day as needed. 473 mL 5 05/08/2024 06/05/2024 Discontinued Start: 05-08-2024 take 15 mL by mouth three times daily as needed saliva substitute combo no.9 (BIOTENE DRY MOUTH ORAL RINSE) mwsh Indications: Multiple sclerosis (HCC) , History of dry mouth Use 15 mL as instructed three times a day as needed. 473 mL 5 05/08/2024 Active Start: 01-31-2024 End: 04-30-2024 take 15 mL by mouth twice daily as needed saliva substitute combo no.9 (BIOTENE DRY MOUTH ORAL RINSE) mwsh Indications: History of dry mouth Use 15 mL as instructed two times a day as needed (dry mouth). 15 mL 2 01/31/2024 04/30/2024 Active Start: 07-19-2023 End: 05-08-2024 take 15 mL by mouth three times daily as needed saliva substitute combo no.9 (BIOTENE DRY MOUTH ORAL RINSE) mwsh Indications: History of dry mouth Use 15 mL as instructed three times a day as needed. 473 mL 5 07/19/2023 05/08/2024 Discontinued Start: 07-19-2023 take 15 mL by mouth three times daily as needed saliva substitute combo no.9 (BIOTENE DRY MOUTH ORAL RINSE) mwsh Indications: History of dry mouth Use 15 mL as instructed three times a day as needed. 473 mL 5 07/19/2023 Active Start: 04-18-2023 End: 07-19-2023 take 15 mL transmucosal route every eight hours as needed saliva substitute combo no.9 (BIOTENE DRY MOUTH ORAL RINSE) mwsh Use 15 mL as instructed three times daily as needed. 473 mL 5 04/18/2023 07/19/2023 Discontinued Start: 04-18-2023 take 15 mL transmuco steven route every eight hours as needed saliva substitute combo no.9 (BIOTENE DRY MOUTH ORAL RINSE) mwsh Use 15 mL as instructed three times daily as needed. 473 mL 5 04/18/2023 Active Comment on above: Use 15 mL as instruc alva three times daily as needed. Use 15 mL as instruc alva three times a day as needed. sertraline 100 mg oral tablet (20 sources) Serotonin Reuptake Inhibitor Start: 07-07-2024 End: 07-08-2024 take 200 mg by mouth once daily 200 mg, Oral, DAILY, First dose on Sun07/07/24 at 1717, Until Discontinued Start: 07-19-2023 End: 07-10-2024 take 2 tablets by mouth once daily sertraline (ZOLOFT) 100 MG tablet Take 200 mg by mouth daily. 07/19/2023 07/10/2024 Discontinued Start: 04-18-2023 End: 07-19-2023 take 1 tablet by mouth once daily, then take 2 tablets by mouth once daily sertraline (ZOLOFT) 50 mg tablet Take 50mg once daily for one week then increase to 100mg once daily. Take all by mouth 49 tablet 0 04/18/2023 07/19/2023 Discontinued Start: 10-27-2021 End: 04-18-2023 take 1 tablet by mouth once daily sertraline (ZOLOFT) 100 mg tablet Indications: Multiple sclerosis (HCC) , Anxiety and depression Take 1 tablet by mouth once daily. 90 tablet 1 10/27/2021 04/18/2023 Discontinued Start: 03-04-2021 take 1 tablet by janeth every twelve hours Zoloft 50 MG 1 tablet Orally BID for 30 days 30 Rajat, 2021 Active Start: 01-18-2018 End: 12-10-2020 take 100 mg by mouth twice daily Sertraline Discontinued 100 MG PO Twice daily January 18, 2018 12:00am December 10, 2020 12:20pm Comment on above: Take 1 tablet by janeth th once daily. Take 50mg once daily for one week then increase to 100mg once daily. Take all by mouth Take 2 tablets by mo [facility] once daily. sulfamethoxazole 800 mg / trimethoprim 160 mg oral tablet (5 sources) Dihydrofolate Reductase Inhibitor Antibacterial, Sulfonamide Antimicrobial Start: 018 End: 018 take 1 tablet by mouth twice daily Sulfamethoxazole-Trim ethoprim (Bactrim Ds) 800-160 mg tablet Discontinued 1 TAB PO Twice daily 14 January 18, 2018 12:00am January 25, 2018 12:02am traZODone hydrochloride 50 mg oral tablet (5 sources) Serotonin Reuptake Inhibitor Start: 021 End: take 50 mg by mouth once daily at bedtime Trazodone Discontinued 50 MG PO Daily at bedtime 30 December 10, 2020 12:00am January 18, 2021 3:46am vitamin b12 0.5 mg oral tablet (20 sources) Vitamin B12 Start: 024 End: 025 take 1 tablet by mouth once daily cyanocobalamin (VITAMIN B-12) 500 mcg tablet Indications: Multiple sclerosis (HCC) Take 1 tablet by mouth once daily. 90 tablet 05/09/2024 06/05/2024 Discontinued Start: 08-31-2023 End: 08-30-2024 take 1 tablet by mouth once daily cyanocobalamin (VITAMIN B-12) 1,000 mcg tab Indications: Vitamin B deficiency Take 1 tablet by mouth once daily. 90 tablet 08/31/2023 06/05/2024 Discontinued Comment on above: Take 1 tablet by janeth once daily. WALKER ROLLATOR SEAT WITH 6 WHEELS - RED (7 sources) Start: 05-08-2024 End: 06-05-2024 WALKER ROLLATOR SEAT WITH 6 WHEELS - RED Indications: Multiple sclerosis (HCC) 1 Each as directed. 1 Each 05/08/2024 06/05/2024 Discontinued Start: 05-08-2024 WALKER ROLLATO R SEAT WITH 6 WHEELS - RED Indications: Multiple sclerosis (HCC) 1 Each as directed. 1 Each 05/08/2024 Active Problems Active Problems Problem Classification Problem Date Documented Da te Episodic/Chronic Acute cerebrovascular disease (20 sources) Cerebrovascular accident; Translations: [Cerebral infarction, unspecified] Onset: 08-17-2022 Chronic Administrative/social admission (2 sources) Homeless; Translations: [Homelessness] Episodic Anxiety disorders (2 sources) Mixed anxiety and depressive disorder; Translations: [Anxiety disorder, unspecified] Chronic Blindness and vision defects (1 source) Blurring of visual image; Translations: [Other visual disturbances] Episodic Cardiac dysrhythmias (1 source) Bradycardia; Translations: [Bradycardia, unspecified] 07-07-2024 Episodic Diabetes mellitus without complication (1 source) Prediabetes; Translations: [Prediabetes] 06-17-2024 Episodic Disorders of lipid metabolism (20 sources) Hyperlipidemia; Translations: [Hyperlipidemia, unspecified] Onset: 05-08-2022 05-08-2022 Chronic E Codes: Natural/environment (4 sources) Insect bite - wound; Translations: [Bitten or stung by nonvenomous insect and other nonvenomous arthropods, initial encounter] 04-08-2023 Episodic Genitourinary symptoms and ill-defined conditions (1 source) Retention of urine; Translations: [Retention of urine, unspecified] 07-19-2023 Episodic Headache; including migraine (1 source) Headache; including migraine; Translations: [Headache, unspecified] Onset: 07-21-2023 Inflammation; infection of eye (except that caused by tuberculosis or sexually transmitteddisease) (11 sources) Conjunctivitis; Translations: [Unspecified conjunctivitis] 12-23-2019 Episodic Malaise and fatigue (1 source) Fatigue; Translations: [Other fatigue] 01-31-2024 Episodic Menopausal disorders (4 sources) Postmenopausal bleeding; Translations: [Postmenopausal bleeding] Onset: 06-05-2024 02-14-2024 Chronic Mood disorders (20 sources) Recurrent major depressive episodes, moderate ; Translations: [Major depressive disorder, recurrent, moderate] Onset: 05-08-2022 05-08-2022 Chronic Multiple sclerosis (20 sources) Multiple sclerosis; Translations: [Multiple sclerosis] Onset: 03-30-2020 Resolved: 08-16-2021 Chronic Nutritional deficiencies (20 sources) Vitamin D deficiency; Translations: [Vitamin D deficiency, unspecified] Onset: 07-02-2023 Chronic Other aftercare (9 sources) Patient encounter status; Translations: [Encounter for therapeutic drug level monitoring] Episodic Other aftercare (2 sources) Other custodial (current) drug therapy; Translations: [Other custodial (current) drug therapy] Onset: 07-02-2023 Episodic Other aftercare (1 source) Encounter for therapeutic drug level monitoring; Translations: [Encounter for medication monitoring] Onset: 08-01-2024 Episodic Other and unspecified benign neoplasm (3 sources) Leiomyoma; Translations: [Benign neoplasm of connective and other soft tissue, unspecified] 09-17-2023 Episodic Other and unspecified benign neoplasm (1 source) Benign neoplasm of connective and other soft tissue, unspecified; Translations: [Fibroids] Onset: 08-21-2024 Episodic Other connective tissue disease (13 sources) Neuropathic pain; Translations: [Neuralgia and neuritis, unspecified] Episodic Other connective tissue disease (5 sources) Spasticity; Translations: [Cramp and spasm] Episodic Other connective tissue disease (5 sources) Spasm; Translations: [Other muscle spasm] 01-25-2021 Episodic Other connective tissue disease (5 sources) Muscle pain; Translations: [Myalgia, unspecified site] 08-14-2020 Episodic Other connective tissue disease (5 sources) Bursitis of ankle region; Translations: [Other enthesopathy of left foot and ankle] 02-17-2022 Episodic Other connective tissue disease (1 source) Neuralgia and neuritis, unspecified; Translations: [Neuropathic pain] Onset: 08-21-2024 Episodic Other eye disorders (5 sources) Pain in eye; Translations: [Ocular pain, right eye] 12-23-2019 Episodic Other female genital disorders (5 sources) Mass of uterus; Translations: [Other specified noninflammatory disorders of uterus] 01-07-2021 Episodic Other female genital disorders (1 source) Other specified noninflammatory disorders of uterus; Translations: [Other specified symptoms associated with female genital organs] 10-09-2022 Episodic Other gastrointestinal disorders (1 source) Constipation; Translations: [Constipation, unspecified] 07-19-2023 Episodic Other lower respiratory disease (1 source) Snoring; Translations: [Snoring] 01-31-2024 Episodic Other lower respiratory disease (9 sources) Dyspnea; Translations: [Dyspnea, unspecified] Onset: 07-07-2024 Resolved: 07-09-2024 07-07-2024 Episodic Other nervous system disorders (14 sources) Chronic pain; Translations: [Other chronic pain] Chronic Other nervous system disorders (1 source) Demyelinating disease of central nervous system; Translations: [Demyelinating disease of central nervous system, unspecified] 07-19-2023 Chronic Other nervous system disorders (1 source) Cognitive deficit in communication skills; Translations: [Cognitive communication deficit] 09-06-2023 Chronic Other nervous system disorders (1 source) Other chronic pain; Translations: [Chronic bilateral low back pain without sciatica] Onset: 08-21-2024 Chronic Other non-traumatic joint disorders (2 sources) Joint pain in right hand; Translations: [Pain in joints of right hand] 05-08-2024 Episodic Other nutritional; endocrine; and metabolic disorders (20 sources) Body mass index 40+ - severely obese; Translations: [Morbid (severe) obesity due to excess calories] Onset: 02-17-2020 02-17-2020 Chronic Other skin disorders (3 sources) Eruption; Translations: [Rash and other nonspecific skin eruption] 09-20-2023 Episodic Residual codes; unclassified (14 sources) H/O: poisoning; Translations: [Other specified personal risk factors, not elsewhere classified] Episodic Residual codes; unclassified (5 sources) Generalized aches and pains; Translations: [Pain, unspecified] 01-18-2021 Episodic Residual codes; unclassified (3 sources) History of clinical finding in subject; Translations: [Personal history of other specified conditions] 07-19-2023 Episodic Residual codes; unclassified (2 sources) Family history of epilepsy and other diseases of the nervous system; Translations: [Family history of epilepsy and other diseases of the nervous system] Onset: 07-02-2023 Episodic Spondylosis; intervertebral disc disorders; other back problems (15 sources) Other spondylosis with radiculopathy, cervical region; Translations: [Cervical spondylosis] Onset: 12-12-2019 Chronic Spondylosis; intervertebral disc disorders; other back problems (12 sources) Cervicalgia; Translations: [Spasm of back muscles] Onset: 12-08-2019 01-07-2021 Episodic Sprains and strains (5 sources) Strain of neck muscle; Translations: [Strain of muscle, fascia and tendon at neck level, initial encounter] 07-28-2019 Episodic Substance-related disorders (20 sources) History of cocaine abuse; Translations: [Cocaine abuse, in remission] Onset: 05-08-2022 05-08-2022 Chronic Syncope (5 sources) Syncope; Translations: [Syncope and collapse] 03-05-2021 Episodic Unclassified (4 sources) NO SHOW Unclassified (1 source) Insect bite (nonvenomous) of right shoulder, initial encounter; Translations: [Insect bite (nonvenomous) of right shoulder, initial encounter] Onset: 04-08-2023 Unclassified (1 source) Chronic bilateral low back pain without sciatica; Translations: [Chronic bilateral low back pain without sciatica] Onset: 08-21-2024 Past or Other Problems Problem Classification Problem Date Documented Da te Episodic/Chronic Benign neoplasm of uterus (2 sources) Leiomyoma of uterus, unspecified Onset: 06-24-2021 Resolved: 09-20-2021 Episodic Congestive heart failure; nonhypertensive (5 sources) Heart failure; Translations: [Heart failure, unspecified] Onset: 07-07-2024 Resolved: 07-09-2024 07-07-2024 Chronic Diseases of white blood cells (20 sources) Leukocytosis; Translations: [Elevated white blood cell count, unspecified] Onset: 05-08-2022 Resolved: 07-19-2023 05-08-2022 Chronic Nonmalignant breast conditions (2 sources) Pain of breast; Translations: [Mastodynia] Onset: 08-09-2023 07-19-2023 Episodic Other connective tissue disease (1 source) Pain in right foot Onset: 06-24-2021 Resolved: 06-24-2021 Episodic Other connective tissue disease (1 source) Pain in left foot Onset: 06-24-2021 Resolved: 06-24-2021 Episodic Other connective tissue disease (1 source) Pain in unspecified foot Onset: 09-20-2021 Resolved: 09-20-2021 Episodic Other non-traumatic joint disorders (1 source) Pain in joints of right hand; Translations: [Pain in joint of right hand] Onset: 05-08-2024 Episodic Other skin disorders (1 source) Generalized hyperhidrosis Onset: 06-24-2021 Resolved: 06-24-2021 Episodic Suicide and intentional self-inflicted injury (20 sources) H/O: attempted suicide; Translations: [Personal history of self-harm] Onset: 05-08-2022 Resolved: 07-19-2023 05-08-2022 Episodic Results Test Name Value Interpretation Reference Range Facility [facility] 09-04-2024 [facility] Letter Text Normal [facility] 09-04-2024 [place] Telephone (NIQ) BRYAN CRUZ ([id number]) 1970 F [facility] Date Time Provider Department 09/04/24 RAYMOND KEMP During your visit today, we recorded the following information about you: Morena Van 09/04/2024 1:33 PM Signed Misaelrosa is calling Raymond Kemp APRN.CNP today with concern regarding Letter. She is asking for a letter that states she needs a handicap accessible apartment. Please fax to [phone] or [phone]. Please advise. Patient has been identified by name and birthdate. Person calling: self Call patient at: on cell [phone] (home) [phone] (cell) Was an appointment scheduled: No Closing statement: Results or non-symptom based questions: Thank you for calling [facility], your call will be returned within the next business day. Raymond Miguel APRN.CNP 09/05/2024 8:39 AM Signed Letter written and printed to be faxed to below Raymond Kemp APRN.CNP September 05, 2024 8:39 AM Allergies As of Date: 09/04/2024 Noted Allergy Reaction NSAIDS (NON-STEROIDAL ANTI-INFLAM* 0 4 - Hives TRAMADOL 12/23/2019 4 - Hives Date Reviewed: 08/21/2024 Reviewed by: Raymond Kemp APRN.COMPENSATION CONSULTING MANAGER - Fully Assessed Reason for Visit: Letter [264] Prescriptions as of 09/05/2024 - ergocalciferol 50,000 unit capsule (VITAMIN D2, DRISDOL) Take 1 capsule by mouth one time a week. - pregabalin (LYRICA) 300 mg capsule Take 1 capsule by mouth two times a day for 30 days. - lidocaine (LIDODERM) 5 % Apply 1 Patch as directed once daily. to affected area. Remove patch after 12 hours. - DULoxetine (CYMBALTA) 60 mg capsule Take 1 capsule by mouth daily at bedtime. - keTORolac (TORADOL) 10 mg tablet Take 1 tablet by mouth every 6 hours as needed. Do not use while taking NSAIDs including ibuprofen - ergocalciferol 50,000 unit capsule (VITAMIN D2, DRISDOL) Take 1 capsule by mouth one time a week. - ozanimod (ZEPOSIA) 0.92 mg capsule Take 1 capsule by mouth once daily. - hydrocortisone 0.5 % cream APPLY TO AFFECTED AREA TWO TIMES A DAY FOR 7 DAYS. - atorvastatin (LIPITOR) 20 mg tablet Take 1 tablet by mouth once daily. - baclofen 20 mg tablet Take 1 tablet (20mg) by mouth in the morning and afternoon and 2 tablets (40 mg) by mouth in the evening - famotidine (PEPCID) 20 mg tablet Take 20 mg by mouth two times a day. - acetaminophen (TYLENOL EXTRA STRENGTH) 500 mg tablet Take 2 tablets by mouth three times a day as needed for pain. Problem List As Of Date 09/04/2024 Noted Resolved Morbid obesity with BMI of 40.0-44.9, adult (HC*02/17/2020 Multiple sclerosis (HCC) [G35] 03/30/2020 Suicidal ideation [R45.851] 05/08/2022 07/19/2023 Major depressive disorder [F32.9] 05/08/2022 Leukocytosis [D72.829] 05/08/2022 07/19/2023 Hyperlipidemia [E78.5] 05/08/2022 History of cocaine abuse (HCC) [F14.11] 05/08/2022 Current every day smoker [F17.200] 05/08/2022 Stroke (cerebrum) (HCC) [I63.9] 08/17/2022 Vitamin D deficiency [E55.9] 07/19/2023 Diagnosed: 07/19/2023 Letter Text Encounter Status:Closed by RAYMOND KEMP on 09/05/[address] [facility] BRAIN & CERVICAL SPINE MRI [facility] 08-01-2024 Brain Enhancing Lesions None C [facility] Brain Interval Improvement None [facility] Brain New T2 Lesions None [facility] Brain Other Significant MRI Findings None. [facility] Brain Parenchymal Volume Loss None [facility] Brain T2 Leroy of Disease Mild [facility] Radiology Study observation (narrative) Jason fabian [facility] MR Brain WO and W contrast I Von 08-01-2024 IMPRESSION: Multiple intracranial white matter lesions compatible with multiple sclerosis. No new T2 lesions and no new enhancing lesions. No significant parenchymal volume loss. Other Significant Intracranial Findings: None *Note: New T2 Lesions includes both new and enlarging plaques on T2-weighted FLAIR images (new lesions greater than or equal to 5mm3 or an increase in diameter of an existing lesion by greater than or equal to 2mm). Defensive Secondary Coach: PSCB Transcribe Date/Time: Aug 01 2024 10:34A Dictated by : VIVIANA FORMAN MD This examination was interpreted and the report reviewed and electronically signed by: VIVIANA FORMAN MD on Aug 01 2024 10:51AM [facility] DIVISION OF RADIOLOGY * * *Final Report* * * DATE OF EXAM: Aug 01 2024 10:23AM [facility] 0295 - MRI BRAIN WO/W IVCON / PROCEDURE REASON: multiple diagnoses * * * * Physician Interpretation * * * * EXAMINATION: MRI BRAIN WO/W IVCON HISTORY: Multiple sclerosis. Routine follow-up TECHNIQUE: Brain MRI with demyelinating disease protocol with and without IV gadolinium. MQ: [id number] Contrast: 20 mL Dotarem IV COMPARISON: 08/28/2023 RESULT: MR BRAIN: Parenchymal Findings: There are multiple foci of hyperintensity on FLAIR and T2 within the white matter, compatible with the clinical diagnosis of multiple sclerosis. New T2 Lesions: None Interval Improvement: None. New Enhancing Lesions: None T2 Leroy of Disease: Mild. Parenchymal Volume Loss: None. Other Significant Findings/Site(s) of New T2 Lesion(s): None. DIVISION OF RADIOLOGY Provider, [facility] - 08/01/2024 * * *Final Report* * * DATE OF EXAM: Aug 01 2024 10:23AM [facility] 0295 - MRI BRAIN WO/W IVCON / PROCEDURE REASON: multiple diagnoses * * * * Physician Interpretation * * * * EXAMINATION: MRI BRAIN WO/W IVCON HISTORY: Multiple sclerosis. Routine follow-up TECHNIQUE: Brain MRI with demyelinating disease protocol with and without IV gadolinium. MQ: [id number] Contrast: 20 mL Dotarem IV COMPARISON: 08/28/2023 RESULT: MR BRAIN: Parenchymal Findings: There are multiple foci of hyperintensity on FLAIR and T2 within the white matter, compatible with the clinical diagnosis of multiple sclerosis. New T2 Lesions: None Interval Improvement: None. New Enhancing Lesions: None T2 Leroy of Disease: Mild. Parenchymal Volume Loss: None. Other Significant Findings/Site(s) of New T2 Lesion(s): None. IMPRESSION IMPRESSION: Multiple intracranial white matter lesions compatible with multiple sclerosis. No new T2 lesions and no new enhancing lesions. No significant parenchymal volume loss. Other Significant Intracranial Findings: None *Note: New T2 Lesions includes both new and enlarging plaques on T2-weighted FLAIR images (new lesions greater than or equal to 5mm3 or an increase in diameter of an existing lesion by greater than or equal to 2mm). Defensive Secondary Coach: MAXI Transcribe Date/Time: Aug 01 2024 10:34A Dictated by : VIVIANA FORMAN MD This examination was interpreted and the report reviewed and electronically signed by: VIVIANA FORMAN MD on Aug 01 2024 10:51AM [facility] Radiology Study observation (narrative) Jason fabian [facility] MR Brain WO and W contrast I VOrdered By: [facility] Provider on 08-01-2024 [facility] MRI BRAIN WO/W IVCONon 08-01 MRI BRAIN WO/W IVCON * * *Final Report* * * DATE OF EXAM: Aug 01 2024 10:23AM [facility] 0295 - MRI BRAIN WO/W IVCON / PROCEDURE REASON: multiple diagnoses * * * * Physician Interpretation * * * * EXAMINATION: MRI BRAIN WO/W IVCON HISTORY: Multiple sclerosis. Routine follow-up TECHNIQUE: Brain MRI with demyelinating disease protocol with and without IV gadolinium. MQ: [id number] Contrast: 20 mL Dotarem IV COMPARISON: 08/28/2023 RESULT: MR BRAIN: Parenchymal Findings: There are multiple foci of hyperintensity on FLAIR and T2 within the white matter, compatible with the clinical diagnosis of multiple sclerosis. New T2 Lesions: None Interval Improvement: None. New Enhancing Lesions: None T2 Leroy of Disease: Mild. Parenchymal Volume Loss: None. Other Significant Findings/Site(s) of New T2 Lesion(s): None. IMPRESSION: Multiple intracranial white matter lesions compatible with multiple sclerosis. No new T2 lesions and no new enhancing lesions. No significant parenchymal volume loss. Other Significant Intracranial Findings: None *Note: New T2 Lesions includes both new and enlarging plaques on T2-weighted FLAIR images (new lesions greater than or equal to 5mm3 or an increase in diameter of an existing lesion by greater than or equal to 2mm). Defensive Secondary Coach: [facility] CENTER[facility]by Transcribe Date/Time: Aug 01 2024 10:34A Dictated by : VIVIANA FORMAN MD This examination was interpreted and the report reviewed and electronically signed by: VIVIANA FORMAN MD on Aug 01 2024 10:51AM EST [id number] N [facility] C[facility]N Telephone (WHQ) BRYAN CRUZ ([id number]) 1970 F [place] Date Time Provider Department 07/15/24 FREDA HERNANDEZ Irma During your visit today, we recorded the following information about you: Eboni Benjamin 07/15/2024 12:48 PM Signed Naheed Gomez DO Baragry, Ashley; P Migs/Cpp Scheduling Pool; Freda Hernandez, CATALYST IMPREGNATOR.COMPENSATION CONSULTING MANAGER Can we pls schedule an office hysteroscopy, polypectomy w nj using rigid scope and Resectr. @[place]- can you pls OGI the pt and make sure she agrees. Eboni Odell 07/15/2024 12:48 PM Signed LVM to call office to schedule. Will need a [address] Gomez. Allergies As of Date: 07/15/2024 Noted Allergy Reaction NSAIDS (NON-STEROIDAL ANTI-INFLAM* 0 4 - Hives TRAMADOL 12/23/2019 4 - Hives Date Reviewed: 06/16/2024 Reviewed by: Freda Hernandez APRN.COMPENSATION CONSULTING MANAGER - Fully Assessed Reason for Visit: Appointment [186] Prescriptions as of 07/15/2024 - ozanimod (ZEPOSIA) 0.92 mg capsule Take 1 capsule by mouth once daily. - pregabalin (LYRICA) 300 mg capsule Take 1 capsule by mouth two times a day for 30 days. - keTORolac (TORADOL) 10 mg tablet Take 1 tablet by mouth every 6 hours as needed. Do not use while taking NSAIDs including ibuprofen - DULoxetine (CYMBALTA) 30 mg capsule Take 1 capsule by mouth daily at bedtime for 7 days, THEN 2 capsules daily at bedtime. - lidocaine (LIDODERM) 5 % Apply 1 Patch as directed once daily. to affected area. Remove patch after 12 hours. - hydrocortisone 0.5 % cream APPLY TO AFFECTED AREA TWO TIMES A DAY FOR 7 DAYS. - atorvastatin (LIPITOR) 20 mg tablet Take 1 tablet by mouth once daily. - baclofen 20 mg tablet Take 1 tablet (20mg) by mouth in the morning and afternoon and 2 tablets (40 mg) by mouth in the evening - DULoxetine (CYMBALTA) 60 mg capsule Take 1 capsule by mouth daily at bedtime. Patient should start on October 04, 2023. - famotidine (PEPCID) 20 mg tablet Take 20 mg by mouth two times a day. - ergocalciferol 50,000 unit capsule (VITAMIN D2, DRISDOL) Take 1 capsule by mouth one time a week. - acetaminophen (TYLENOL EXTRA STRENGTH) 500 mg tablet Take 2 tablets by mouth three times a day as needed for pain. - lidocaine HCL 4 % ptmd Apply 1 Patch to affected area once daily. Problem List As Of Date 07/15/2024 Noted Resolved Morbid obesity with BMI of 40.0-44.9, adult (HC*02/17/2020 Multiple sclerosis (HCC) [G35] 03/30/2020 Suicidal ideation [R45.851] 05/08/2022 07/19/2023 Major depressive disorder [F32.9] 05/08/2022 Leukocytosis [D72.829] 05/08/2022 07/19/2023 Hyperlipidemia [E78.5] 05/08/2022 History of cocaine abuse (HCC) [F14.11] 05/08/2022 Current every day smoker [F17.200] 05/08/2022 Stroke (cerebrum) ([facility]) [I63.9] 08/17/2022 Vitamin D deficiency [E55.9] 07/19/2023 Diagnosed: 07/19/2023 Encounter Status:Closed by EBONI BENJAMIN on 07/15/[address] [facility] BASIC METABOLIC PANELon 12-0 Anion gap [Moles/Vol] 17 mmol/L Normal 10-20 [facility] Comment on above: Performed By: #### C R K #### S [facility] [address] [place] [address], Calcium [Mass/Vol] 9.7 mg/dL Normal 8.6-10.3 [facility] Comment on above: Performed By: #### C R K #### [facility] [address] [place] [address], Chloride [Moles/Vol] 104 mmol/L Normal 98-107 [facility] Comment on above: Performed By: #### C R K #### S [facility] [address] [place] [address], CO2 [Moles/Vol] 24 mmol/L Normal 21-31 [facility] Comment on above: Performed By: #### C R K #### S [facility] [address] [place] [address], Creatinine [Mass/Vol] 0.72 mg/dL Normal 0.60-1.20 [facility] Comment on above: Performed By: #### C R K #### [facility] [address] [place] [address], ESTIMATED GFR (CKD-EPI) 99 mL/min/1.73sqm Normal >=60 [facility] Comment on above: Result Comment: 2020 CKD EPI Equation using Creatinine without Race Comment: Estimated glomerular filtration rate (eGFR) is calculated without a race coefficient. Values should be interpreted in the context of the patient's full clinical presentation. Reference: 1. Jimmy C, Merlin M, Nancy CANO, et al.. A Unifying Approach for GFR Estimation: Recommendations of the NKF-ASN Task Force on Reassessing the Inclusion of Race in Diagnosing Kidney Disease. [place] Journal of Kidney Diseases 2021;79(2):268-88.e1. 2. N Engl J Med 1 Vol. 385 Issue 19 Pages [phone] Performed By: #### C R K #### S [facility] [address] [place] [address], Glucose [Mass/Vol] 249 mg/dL High 74-109 [facility] Comment on above: Performed By: #### C R K #### [facility] [address] [place] [address], Potassium [Moles/Vol] 4.5 mmol/L Normal 3.5-5.0 [facility] Comment on above: Performed By: #### C R K #### [facility] [address] [place] [address], Sodium [Moles/Vol] 140 mmol/L Normal 136-145 [facility] Comment on above: Performed By: #### C R K #### [facility] [address] [place] [address], Urea nitrogen [Mass/Vol] 22 mg/dL Normal 7-25 [facility] Comment on above: Performed By: #### C R K #### [facility] [address] [place] [address], Basic metabolic 2000 panelOr dered By: Linda Chua on 07-10-2024 Anion gap [Moles/Vol] 17 mmol/L 10 - 20 [facility] [place] Calcium [Mass/Vol] 9.7 mg/dL 8.6 - 10. 3 mg/dL [facility] Chloride [Moles/Vol] 104 mmol/L 98 - 10 7 mmol/L [facility] CO2 [Moles/Vol] 24 mmol/L 21 - 31 mmol/L [facility] Creatinine [Mass/Vol] 0.72 mg/dL 0.60 - 1.20 mg/dL [facility] GFR/1.73 sq M.predicted CKD-EPI (S/P/Bld) [Vol rate/Area] 99 - PINF [facility] Comment on above: 2020 CKD EPI Equatio n using Creatinine without Race Comment: Estimated glomerular filtration rate (eGFR) is calculated without a race coefficient. Values should be interpreted in the context of the patient's full clinical presentation. Reference: 1. Jimmy C, Merlin M, Nancy CANO, et al.. A Unifying Approach for GFR Estimation: Recommendations of the NKF-ASN Task Force on Reassessing the Inclusion of Race in Diagnosing Kidney Disease. [place] Journal of Kidney Diseases 2021;79(2):268-88.e1. 2. N Engl J Med 1 Vol. 385 Issue 19 Pages 9303-1197 Glucose [Mass/Vol] 249 mg/dL High 74 - 109 mg/dL [facility] Interpretation and review of laboratory results Abnormal [facility] Potassium [Moles/Vol] 4.5 mmol/L 3.5 - 5.0 mmol/L [facility] Sodium [Moles/Vol] 140 mmol/L 136 - 145 mmol/L [facility] Urea nitrogen [Mass/Vol] 22 mg/dL 7 - 25 mg/dL [facility] CBC panel Auto (Bld)Ordered By: Maria Del Carmen Pena on 07-10-2024 Erythrocyte distribution width (RBC) [Ratio] 13.6 % 11.5 - 14.5 % [facility] Hematocrit (Bld) [Volume fraction] 42 % 36.0 - 46.0 % [facility] Hemoglobin (Bld) [Mass/Vol] 13.4 g/dL 12.0 - 15.0 g/dL [facility] Interpretation and review of laboratory results Abnormal [facility] MCH (RBC) [Entitic mass] 29.7 pg 26.0 - 34.0 pg [facility] MCHC (RBC) [Mass/Vol] 31.9 g/dL Low 32.0 - 35.9 g/dL [facility] MCV (RBC) [Entitic vol] 93 fL 80 - 100 fL [facility] Platelet mean volume (Bld) [Entitic vol] 8.6 fL 7.5 - 11.2 fL [facility] Platelets (Bld) [#/Vol] 344 10*3/uL 150 - 400 K/uL [facility] RBC (Bld) [#/Vol] 4.51 10*6/uL [facility] WBC (Bld) [#/Vol] 23.4 10*3/uL High 4.5 - 11.5 K/uL [facility] COMPLETE BLOOD COUNTon 07-10 Erythrocyte distribution width (RBC) [Ratio] 13.6 % Normal 11.5-14.5 [facility] Comment on above: Performed By: #### C BC #### [facility] [address] [place] [address], Hematocrit (Bld) [Volume fraction] 42.0 % Normal 36.0-46.0 [facility] Comment on above: Performed By: #### C BC #### [facility] [address] [place] [address], Hemoglobin (Bld) [Mass/Vol] 13.4 g/dL Normal 12.0-15.0 [facility] Comment on above: Performed By: #### C BC #### [facility] [address] [place] [address], MCH (RBC) [Entitic mass] 29.7 pg Normal 26.0-34.0 [facility] Comment on above: Performed By: #### C BC #### [facility] [address] [place] [address], MCHC (RBC) [Mass/Vol] 31.9 g/dL Low 32.0-35.9 [facility] Comment on above: Performed By: #### C BC #### S [facility] [address] [place] [address], MCV (RBC) [Entitic vol] 93 fL Normal 80-100 [facility] Comment on above: Performed By: #### C BC #### S [facility] [address] [place] [address], Platelet mean volume (Bld) [Entitic vol] 8.6 fL Normal 7.5-11.2 [facility] Comment on above: Performed By: #### C BC #### S [facility] [address] [place], [place], Platelets (Bld) [#/Vol] 344 10*3/uL Normal 150-400 [facility] Comment on above: Performed By: #### C BC #### [facility] [address] [place], [place], RBC (Bld) [#/Vol] 4.51 10*6/uL Normal 4.00-5.20 [facility] Comment on above: Performed By: #### C BC #### S [facility] [address] [place], [place], WBC (Bld) [#/Vol] 23.4 10*3/uL High 4.5-11.5 [facility] Comment on above: Performed By: #### C BC #### [facility] [address] [place], [place], MAGNESIUMon 07-10-2024 Interpretation and review of laboratory results Normal [facility] Magnesium [Mass/Vol] 2 mg/dL 1.9 - 2 .7 mg/dL [facility] Magnesium [Mass/Vol] 2.0 mg/dL Normal 1.9-2.7 [facility] Comment on above: Performed By: #### C R K #### [facility] [address] [place], [place], Progress Noteson 07-10-2024 [employer] Authentication Interface Message Text Pt home medications returned to her. Docusate, toradol, ozanimod returned to pt from pt's bin. Lyrica received from pharmacy, signed for by rn and returned to pt. Normal [facility] [employer] [facility] [employer] Authentication Interface Message Text Dr. Whatley notified of critical WBC value of 23.[address] Whatley read back critical results. No new orders at this time. Normal [facility] [employer] [facility] Assessment AND Plan Noteon 1 09-09-2023 [employer] Authentication Interface Message Text Cont lipitor 20mg daily Normal [facility] [employer] [facility] [employer] Aut[employer] Interface Message Text Echocardiogram normal and reassuring Normal [facility] [employer] Authentication Interface Message Text Mild low levels, continue vitamin D replacement supplementation Normal [facility] [employer] Aut[employer] Interface Message Text Encourage cessation, offer nicotine replacement Normal [facility] [employer] Aut[employer] Interface Message Text In remission Normal [facility] [employer] Aut[employer] Interface Message Text Cont cymbalta. Normal [facility] [employer] Aut[employer] Interface Message Text F/u echocardiogram Normal [facility] [employer] Aut[employer] Interface Message Text Continue zeposia Continue IV solumedrol 1g every 18 hours x 3 doses. F/u MR head and MR orbit F/u neuro recs, ophthalmology asking to see after imaging. Will coordinate plan with ophtho based on recommendations. Continue toradol 10mg as home med for pain control. Continue tylenol 500mg q6h and lyrica 300mg BID Restart lidocaine patch after MRI. Normal [facility] [employer] [facility] [employer] Authentication Interface Message Text Continue lipitor 20mg Normal [facility] [employer] Aut[employer] Interface Message Text Encourage lifestyle changes, pt stopped cocaine use in remission. Encourage tobacco cessation Normal [facility] [employer] [facility] Progress Noteson 07-09-2024 [employer] Authentication Interface Message Text NEUROLOGY CONSULT FOLLOWUP NOTE Hospital Course: Bryan Cruz is a 53 year old female with PMHx of MS relapsing/remitting, on zeposia, chronic headaches, crack/cocaine use (90 days sober), depression, fibroids, stroke, who initially presented from sober living facility to ED via EMS for evaluation of syncopal episode and SOB at rest that has been ongoing for appx 1.5 weeks. At that time, pt stated that she felt her symptoms were similar to prior MS flare. She noted that she missed one dose of zeposia the day before ED presentation. Prior cord signal noted demyelination at C2-C3 that was unchanged in 06/04/24. In the ED, there were no no acute overnight heart failure findings on exam. CTA did not reveal a PE, but did show cardiac insufficiency. Cardiac enzymes were normal. Pt was admitted to Medicine Team 6 floor. Neurology was consulted for evaluation of MS flare, dyspnea, fatigue, and blurry vision. On initial consult interview, pt reported that symptoms began a few days ago beginning with loss of balance progressing to weakness of both legs (R leg weaker than L). Around that time she also had blurry vision with throbbing eye pain bilaterally and a constant occipital headache. She has been taking tylenol for the pain which has helped. Pt reported that she has had loss of sensation over her fingers on both hands, but not in her toes. She noticed recent hoarseness of her voice. Stated her shortness of breath is still present but improved compared to when she presented to the ED. She cannot lie flat. She described what seemed to be an apneic event. Also reported falling twice due to lightheadedness. She has been fatigued throughout stay in hospital. Denied any urinary urgency or loss of continence with this current flare. Noted that in past, she had urinary retention with what she believes are MS flares. Pt reported that her past flares usually taper off and improve, but current flare worsened. She was hospitalized for a MS flare before. Last episode was around 4-5 months ago. Pt denied any common cold symptoms such as fever or cough. She has been followed by a neurologist and states she has been given steroids in the past for MS flares. Of note, patient has had recent stressors related to her housing situation. Updates since last visit: Today, pt reports feeling much better compared to yesterday. She reports significant improvement in her shortness of breath. States that her breathing exercises yesterday have helped. Notes that she was able to walk around the floor yesterday evening with no balance issues. Pt is still experiencing eye pain and headache, but this is also less severe compared to yesterday. She reports her voice sounding less hoarse. States she is still having decreased sensation over the right side of her face and right upper extremity. She reports not sleeping at all last night and felt full of energy. Noted history of insomnia in the past. Pt believes she feels improvement in her symptoms after high dose steroid treatment yesterday. Denies noticing any side effects. Pt expressed interest in being discharged today due to problems with her housing situation. She was agreeable when informed that steroid treatment would be completed tomorrow. Summary of Imaging AND Other Pertinent Studies: CTA Chest Pulmonary Embolism - 1. No PE identified. PE cannot be evaluated beyond the segmental level due to the limitations above. 2. Borderline cardiomegaly, with contrast reflux into the IVC suggestive of cardiac insufficiency. CT Head Without Contrast No acute intracranial abnormality. X-ray Chest PA+Lat No acute cardiopulmonary abnormality identified. MR C-SPINE W/+W/O (06/04/24 from OSH) Stable cord signal abnormality at C2-C3 No new suspicious cord signal abnormalities No suspicious enhancements OBJECTIVE: Vitals: 07/09/24 0633 BP: 137/68 Pulse: 70 Resp: 20 Temp: 98.6 ???F (37 ???C) SpO2: 97% No intake or output data in the 24 hours ending 07/09/24 0718 Physical Exam: Gen: Well appearing, CVS: RRR, Normal S1, S2 Psych: Pressured speech, but easily redirectable. Tangential at times. Improved in the afternoon. Neurologic exam: Cognition: Level of consciousness: awake, alert Affect: normal Orientation: oriented Attention: normal Language: intact fluency, Cranial Nerves CN II: Vision: visual leger intact to finger count Pupils: equal, round; reactive to light bilaterally CN III, IV, : Extraocular movements: Intact, bilaterally CN V: Facial sensation: Asymmetric, diminished facial sensation on right forehead, cheeks, chin compared to left side of face CN VII: Facial motor function: intact and symmetric CN VIII: Hearing: intact to conversation, finger rub CN IX, X: Palate elevation: symmetric. Dysarthria: mildly hoarse voice, improved since yesterday CN XII: Tongue: midline; able to move fully to R and L Motor Tone: N (more content not included)... Normal [facility] [employer] Student Noteon 07-09-2024 [employer] Authentication Interface Message Text NEUROLOGY CONSULT FOLLOWUP NOTE Hospital Course: Bryan Cruz is a 53 year old female with PMHx of MS relapsing/remitting, on zeposia, chronic headaches, crack/cocaine use (90 days sober), depression, fibroids, stroke, who initially presented from sober living facility to ED via EMS for evaluation of syncopal episode and SOB at rest that has been ongoing for appx 1.5 weeks. At that time, pt stated that she felt her symptoms were similar to prior MS flare. She noted that she missed one dose of zeposia the day before ED presentation. Prior cord signal noted demyelination at C2-C3 that was unchanged in 06/04/24. In the ED, there were no no acute overnight heart failure findings on exam. CTA did not reveal a PE, but did show cardiac insufficiency. Cardiac enzymes were normal. Pt was admitted to Medicine Team 6 floor. Neurology was consulted for evaluation of MS flare, dyspnea, fatigue, and blurry vision. On initial consult interview, pt reported that symptoms began a few days ago beginning with loss of balance progressing to weakness of both legs (R leg weaker than L). Around that time she also had blurry vision with throbbing eye pain bilaterally and a constant occipital headache. She has been taking tylenol for the pain which has helped. Pt reported that she has had loss of sensation over her fingers on both hands, but not in her toes. She noticed recent hoarseness of her voice. Stated her shortness of breath is still present but improved compared to when she presented to the ED. She cannot lie flat. She described what seemed to be an apneic event. Also reported falling twice due to lightheadedness. She has been fatigued throughout stay in hospital. Denied any urinary urgency or loss of continence with this current flare. Noted that in past, she had urinary retention with what she believes are MS flares. Pt reported that her past flares usually taper off and improve, but current flare worsened. She was hospitalized for a MS flare before. Last episode was around 4-5 months ago. Pt denied any common cold symptoms such as fever or cough. She has been followed by a neurologist and states she has been given steroids in the past for MS flares. Of note, patient has had recent stressors related to her housing situation. Updates since last visit: Today, pt reports feeling much better compared to yesterday. She reports significant improvement in her shortness of breath. States that her breathing exercises yesterday have helped. Notes that she was able to walk around the floor yesterday evening with no balance issues. Pt is still experiencing eye pain and headache, but this is also less severe compared to yesterday. She reports her voice sounding less hoarse. States she is still having decreased sensation over the right side of her face and right upper extremity. She reports not sleeping at all last night and felt full of energy. Noted history of insomnia in the past. Pt believes she feels improvement in her symptoms after high dose steroid treatment yesterday. Denies noticing any side effects. Pt expressed interest in being discharged today due to problems with her housing situation. She was agreeable when informed that steroid treatment would be completed tomorrow. Summary of Imaging AND Other Pertinent Studies: CTA Chest Pulmonary Embolism - 1. No PE identified. PE cannot be evaluated beyond the segmental level due to the limitations above. 2. Borderline cardiomegaly, with contrast reflux into the IVC suggestive of cardiac insufficiency. CT Head Without Contrast No acute intracranial abnormality. X-ray Chest PA+Lat No acute cardiopulmonary abnormality identified. MR C-SPINE W/+W/O (06/04/24 from OSH) Stable cord signal abnormality at C2-C3 No new suspicious cord signal abnormalities No suspicious enhancements OBJECTIVE: Vitals: 07/09/24 0633 BP: 137/68 Pulse: 70 Resp: 20 Temp: 98.6 ???F (37 ???C) SpO2: 97% No intake or output data in the 24 hours ending 07/09/24 0718 Physical Exam: Gen: Well appearing, CVS: RRR, Normal S1, S2 Psych: Pressured speech, but easily redirectable. Tangential at times. Improved in the afternoon. Neurologic exam: Cognition: Level of consciousness: awake, alert Affect: normal Orientation: oriented Attention: normal Language: intact fluency, Cranial Nerves CN II: Vision: visual leger intact to finger count Pupils: equal, round; reactive to light bilaterally CN III, IV, : Extraocular movements: Intact, bilaterally CN V: Facial sensation: Asymmetric, diminished facial sensation on right forehead, cheeks, chin compared to left side of face CN VII: Facial motor function: intact and symmetric CN VIII: Hearing: intact to conversation, finger rub CN IX, X: Palate elevation: symmetric. Dysarthria: mildly hoarse voice, improved since yesterday CN XII: Tongue: midline; able to move fully to R and L Motor Tone: N (more content not included)... Normal [facility] [employer] Assessment AND Plan Noteon 1 09-08-2023 [employer] Authentication Interface Message Text Cont cymbalta. Pt does not take zoloft. Normal [facility] Authentication Interface Message Text F/u echo Normal [facility] [employer] Authentication Interface Message Text F/u echocardiogram Normal [facility] [employer] Authentication Interface Message Text Obtain echocardiogram given findings on CTA. F/u NT-pro BNP. Normal [facility] [employer] Authentication Interface Message Text Continue lipitor 20mg Normal [facility] [employer] Authentication Interface Message Text Mild low levels, continue vitamin D replacement supplementation Normal [employer] Authentication Interface Message Text Encourage cessation, offer nicotine replacement Normal [employer] Authentication Interface Message Text Encourage lifestyle changes, pt stopped cocaine use in remission. Encourage tobacco cessation Normal [employer] Authentication Interface Message Text Continue zeposia at discharge, pt ask facility to bring in for dispense. Neurology to evaluate today, ophthalmology asking to see after imaging. Will coordinate plan with ophtho based on recommendations. Normal [facility] [employer] Authentication Interface Message Text Cont lipitor 20mg daily Normal [facility] [employer] Authentication Interface Message Text In remission Normal [facility] BASIC METABOLIC PANELon 12-0 Anion gap [Moles/Vol] 13 mmol/L Normal 10-20 [facility] Comment on above: Performed By: #### C H8, MG, HEPATIC, TSH HS ####[facility] [id number] [place] [address], Calcium [Mass/Vol] 8.8 mg/dL Normal 8.6-10.3 [facility] Comment on above: Performed By: #### C H8, MG, HEPATIC, TSH HS ####[facility] [id number] [place], [place], Chloride [Moles/Vol] 104 mmol/L Normal 98-107 [facility] Comment on above: Performed By: #### C H8, MG, HEPATIC, TSH HS ####[facility] [id number] [place], [place], CO2 [Moles/Vol] 28 mmol/L Normal 21-31 [facility] Comment on above: Performed By: #### C H8, MG, HEPATIC, TSH HS ####[facility] [id number] [place], [place], Creatinine [Mass/Vol] 0.58 mg/dL Low 0.60-1.20 [facility] Comment on above: Performed By: #### C H8, MG, HEPATIC, TSH HS ####[facility] [id number] [place], [place], ESTIMATED GFR (CKD-EPI) 107 mL/min/1.73sqm Normal >=60 [facility] Comment on above: Result Comment: 2020 CKD EPI Equation using Creatinine without Race Comment: Estimated glomerular filtration rate (eGFR) is calculated without a race coefficient. Values should be interpreted in the context of the patient's full clinical presentation. Reference: 1. Jimmy Gray, Merlin M, Nancy CANO, et al.. A Unifying Approach for GFR Estimation: Recommendations of the NKF-ASN Task Force on Reassessing the Inclusion of Race in Diagnosing Kidney Disease. [place] Journal of Kidney Diseases 202;79(2):268-88.e1. 2. N Engl J Med 2020 Vol. 385 Issue 19 Pages 5507-6118 Performed By: #### C H8, MG, HEPATIC, TSH HS ####[facility] [id number] [place], [place], Glucose [Mass/Vol] 108 mg/dL Normal 74-109 [facility] Comment on above: Performed By: #### C H8, MG, HEPATIC, TSH HS ####[facility] [id number] [place], [place], Potassium [Moles/Vol] 4.1 mmol/L Normal 3.5-5.0 [facility] Comment on above: Performed By: #### C H8, MG, HEPATIC, TSH HS ####[facility] [id number] [place], [place], Sodium [Moles/Vol] 141 mmol/L Normal 136-145 [facility] Comment on above: Performed By: #### C H8, MG, HEPATIC, TSH HS ####[facility] [id number] [place], [place], Urea nitrogen [Mass/Vol] 17 mg/dL Normal 7-25 [facility] Comment on above: Performed By: #### C H8, MG, HEPATIC, TSH HS ####[facility] [id number] [place], [place], Basic metabolic 2000 panelOr dered By: Herb Mcpherson on 07-08-2024 Anion gap [Moles/Vol] 13 mmol/L 10 - 20 [facility] Calcium [Mass/Vol] 8.8 mg/dL 8.6 - 10. 3 mg/dL [facility] Chloride [Moles/Vol] 104 mmol/L 98 - 10 7 mmol/L [facility] CO2 [Moles/Vol] 28 mmol/L 21 - 31 mmol/L [facility] Creatinine [Mass/Vol] 0.58 mg/dL Low 0.60 - 1.20 mg/dL [facility] GFR/1.73 sq M.predicted CKD-EPI (S/P/Bld) [Vol rate/Area] 107 - PINF [facility] Comment on above: 2020 CKD EPI Equatio n using Creatinine without Race Comment: Estimated glomerular filtration rate (eGFR) is calculated without a race coefficient. Values should be interpreted in the context of the patient's full clinical presentation. Reference: 1. Jimmy C, Merlin M, Nancy CANO, et al.. A Unifying Approach for GFR Estimation: Recommendations of the NKF-ASN Task Force on Reassessing the Inclusion of Race in Diagnosing Kidney Disease. [place] Journal of Kidney Diseases 202;79(2):268-88.e1. 2. N Engl J Med 1 Vol. 385 Issue 19 Pages 9241-6728 Glucose [Mass/Vol] 108 mg/dL 74 - 109 mg/dL [facility] Interpretation and review of laboratory results Abnormal [facility] Potassium [Moles/Vol] 4.1 mmol/L 3.5 - 5.0 mmol/L [facility] Sodium [Moles/Vol] 141 mmol/L 136 - 145 mmol/L [facility] Urea nitrogen [Mass/Vol] 17 mg/dL 7 - 25 mg/dL [facility] CBC panel Auto (Bld)on 07-08 Erythrocyte distribution width (RBC) [Ratio] 13.4 % 11.5 - 14.5 % [facility] Hematocrit (Bld) [Volume fraction] 41.1 % 36.0 - 46.0 % [facility] Hemoglobin (Bld) [Mass/Vol] 13.5 g/dL 12.0 - 15.0 g/dL [facility] Interpretation and review of laboratory results Normal [facility] MCH (RBC) [Entitic mass] 30.3 pg 26.0 - 34.0 pg [facility] MCHC (RBC) [Mass/Vol] 32.8 g/dL 32.0 - 35.9 g/dL [facility] MCV (RBC) [Entitic vol] 92 fL 80 - 100 fL [facility] Platelet mean volume (Bld) [Entitic vol] 8.5 fL 7.5 - 11.2 fL [facility] Platelets (Bld) [#/Vol] 333 10*3/uL 150 - 400 K/uL [facility] RBC (Bld) [#/Vol] 4.45 10*6/uL [facility] WBC (Bld) [#/Vol] 11.1 10*3/uL 4.5 - 11.5 K/uL [facility] COMPLETE BLOOD COUNTon 07-08 Erythrocyte distribution width (RBC) [Ratio] 13.4 % Normal 11.5-14.5 [facility] Comment on above: Performed By: #### C R K #### [facility]OR[facility]ORY [address] [place] [address], Hematocrit (Bld) [Volume fraction] 41.1 % Normal 36.0-46.0 [facility] Comment on above: Performed By: #### C R K #### [facility]ORY [address] [place] [address], Hemoglobin (Bld) [Mass/Vol] 13.5 g/dL Normal 12.0-15.0 [facility] Comment on above: Performed By: #### C R K #### [facility] [address] [place] [address], MCH (RBC) [Entitic mass] 30.3 pg Normal 26.0-34.0 [facility] Comment on above: Performed By: #### C R K #### [facility]ORY [address] [place] [address], MCHC (RBC) [Mass/Vol] 32.8 g/dL Normal 32.0-35.9 [facility] Comment on above: Performed By: #### C R K #### S PATHOLOGY LABORATORY [address] [place] [address], MCV (RBC) [Entitic vol] 92 fL Normal 80-100 [facility] Comment on above: Performed By: #### C R K #### S PATHOLOGY LABORATORY [address] [place], [place], Platelet mean volume (Bld) [Entitic vol] 8.5 fL Normal 7.5-11.2 [facility] Comment on above: Performed By: #### C R K #### S PATHOLOGY LABORATORY [address] [place], [place], Platelets (Bld) [#/Vol] 333 10*3/uL Normal 150-400 [facility] Comment on above: Performed By: #### C R K #### S PATHOLOGY LABORATORY [address] [place], [place], RBC (Bld) [#/Vol] 4.45 10*6/uL Normal 4.00-5.20 [facility] Comment on above: Performed By: #### C R K #### [facility] [address] [place], [place], WBC (Bld) [#/Vol] 11.1 10*3/uL Normal 4.5-11.5 [facility] Comment on above: Performed By: #### C R K #### [facility]ORY [address] [place], [place], Consultson 07-08-2024 [employer] Authentication Interface Message Text NEUROLOGY INITIAL CONSULT NOTE Reason for Consult: MS Flare, dyspnea, fatigue, blurry vision, Consulted by: Yousif Gillette MD HPI: Bryan Cruz is a 53 year old female with PMHx of MS relapsing/remitting, on zeposia, chronic headaches, crack/cocaine use (90 days sober), depression, fibroids, stroke, who initially presented from sober living facility to ED via EMS for evaluation of syncopal episode and SOB at rest that has been ongoing for appx 1.5 weeks. At that time, pt stated that she felt her symptoms were similar to prior MS flare. She noted that she missed one dose of zeposia the day before ED presentation. Prior cord signal noted demyelination at C2-C3 that was unchanged in 06/04/24. In the ED, there were no no acute overnight heart failure findings on exam. CTA did not reveal a PE, but did show cardiac insufficiency. Cardiac enzymes were normal. Pt was admitted to Medicine Team 6 floor. On interview today, pt reports that symptoms began a few days ago beginning with loss of balance progressing to weakness of both legs (R leg weaker than L). Around that time she also had blurry vision with throbbing eye pain bilaterally and a constant occipital headache. She has been taking tylenol for the pain which has helped. Pt reports that she has had loss of sensation over her fingers on both hands, but not in her toes. She has noticed recent hoarseness of her voice. States her shortness of breath is still present but improved compared to when she presented to the ED. She cannot lie flat. She described what seemed to be an apneic event. Also reports falling twice due to lightheadedness. She has been fatigued throughout stay in hospital. Denies any urinary urgency or loss ofcontinence with this current flare. Notes that in past, she has had urinary retention with what she believes are MS flares. Pt reports that her past flares usually taper off and improve, but current flare worsened. She has never been hospitalized for a MS flare before. Last episode was around 4-5 months ago. Pt denies any common cold symptoms such as fever or cough. She has been followed by a neurologist and states she has been given steroids in the past for MS flares. Of note, patient has had recent stressors related to her housing situation. Review of Systems ROS as in the HPI. 10 point ROS otherwise reviewed for complaint and are negative. Past Medical History: Diagnosis Date Current every day smoker 05/08/2022 Added secondary to documentation in Social History. History of cocaine abuse (HCC) 05/08/2022 Hyperlipidemia 05/08/2022 Morbid obesity with BMI of 40.0-44.9, adult 02/17/2020 Multiple sclerosis exacerbation (HCC) 03/30/2020 Vitamin D deficiency 07/19/2023 No past surgical history on file. No family history on file. Social History Socioeconomic History Marital status: Single Social Drivers of Health Food Insecurity: Food Insecurity Present (07/07/2024) Hunger Vital Sign Worried About Running Out of Food in the Last Year: Sometimes true Transportation Needs: Unknown (07/07/2024) PRAPARE - Transportation Lack of Transportation (Medical): No Intimate Partner Violence: Unknown (07/07/2024) Humiliation, Afraid, Rape, and Kick questionnaire Emotionally Abused: No Vitals: 07/08/24 0824 BP: 113/63 Pulse: 67 Resp: 18 Temp: 99.7 ???F (37.6 ???C) SpO2: 95% No intake or output data in the 24 hours ending 07/08/24 1257 Current Facility-Administered Medications: lidocaine (LIDODERM) 4 % patch, 1 Patch, Transdermal, Every 24 hours, Yousif Gillette MD, 1 Patch at 07/08/24 1124 baclofen (LIORESAL) 20 MG tablet, 20 mg, Oral, Daily with breakfast, Yousif Gillette MD baclofen (LIORESAL) 20 MG tablet, 40 mg, Oral, At Bedtime, Yousif Gillette MD, 40 mg at 07/08/24 0006 famotidine (PEPCID) tablet, 20 mg, Oral, 2x Daily, Yousif Gillette MD, 20 mg at 07/08/24 0858 DULoxetine (CYMBALTA) capsule, 60 mg, Oral, At Bedtime, Yousif Gillette MD, 60 mg at 07/08/24 0006 atorvastatin (LIPITOR) tablet, 20 mg, Oral, Daily, Yousif Gillette MD, 20 mg at 07/08/24 0858 acetaminophen (TYLENOL) tablet, 500 mg, Oral, Q8H PRN, Yousif Gillette MD, 500 mg at 07/08/24 0858 enoxaparin (LOVENOX) 40 MG/0.4ML injection 40 mg, 40 mg, Subcutaneous, Daily, Yousif Gillette MD, 40 mg at 07/07/24 1717 lidocaine (LIDODERM) 4 % patch, 2 Patch, Transdermal, Every 24 hours, Yousif Gillette MD, 2 Patch at 07/07/24 1455 Exam Neurologic: Cognition: Sedation: none Level of consciousness: awake, alert, but tired Affect: normal Orientation: oriented Attention: normal Language: intact fluency, Fund of knowledge: appropriate Cranial Nerves CN II: Vision: visual leger intact to finger count Pupils: Equal, reactive to light bilaterally CN III, IV, : Extraocular movements: intact CN V: Facial sensation: Asymmetric, diminished facial sensation on right forehead, cheeks, chin compared to left side of face (more content not included)... Normal [facility] [employer] Authentication Interface Message Text Normal [facility] HEPATIC FUNCTION PANELon Albumin [Mass/Vol] 3.7 g/dL 3.5 - 5.7 g/dL [facility] ALP [Catalytic activity/Vol] 106 U/L High [facility] ALT [Catalytic activity/Vol] 12 U/L [facility] AST [Catalytic activity/Vol] 11 U/L Low [facility] Bilirubin [Mass/Vol] 0.5 mg/dL 0.3 - 1 .0 mg/dL [facility] Bilirubin.direct [Mass/Vol] 0.1 mg/dL 0.03 - 0.18 mg/dL [facility] Protein [Mass/Vol] 6.2 g/dL 6.0 - 8.3 g/dL [facility] Albumin [Mass/Vol] 3.7 g/dL Normal 3.5-5.7 [facility] Comment on above: Performed By: #### C H8, MG, HEPATIC, TSH HS ####S PATHOLOGY [id number] [place], [place], ALK 106 IU/L High 34-104 [facility] Comment on above: Performed By: #### C H8, MG, HEPATIC, TSH HS ####S PATHOLOGY [id number] [place], [place], ALT [Catalytic activity/Vol] 12 U/L Normal 7-52 [facility] Comment on above: Performed By: #### C H8, MG, HEPATIC, TSH HS ####[facility] [id number] [place], [place], AST [Catalytic activity/Vol] 11 U/L Low 13-39 [facility] Comment on above: Performed By: #### C H8, MG, HEPATIC, TSH HS ####[facility] [id number] [place], Bilirubin [Mass/Vol] 0.5 mg/dL Normal 0.3-1.0 [facility] Comment on above: Performed By: #### C H8, MG, HEPATIC, TSH HS ####[facility] [id number] [place], Bilirubin.direct [Mass/Vol] 0.10 mg/dL Normal 0.03-0.18 [facility] Comment on above: Performed By: #### C H8, MG, HEPATIC, TSH HS ####S PATHOLOGY [id number] [place], Protein [Mass/Vol] 6.2 g/dL Normal 6.0-8.3 [facility] Comment on above: Performed By: #### C H8, MG, HEPATIC, TSH HS ####[facility] [id number] [place], [place], MAGNESIUMon 07-08-2024 Magnesium [Mass/Vol] 1.7 mg/dL Low 1.9 - 2 .7 mg/dL [facility] Magnesium [Mass/Vol] 1.7 mg/dL Low 1.9-2.7 [facility] Comment on above: Performed By: #### C H8, MG, HEPATIC, TSH HS ####[facility] PATHOLOGY [id number] [place], [place], No Panel Informationon 07-08 Interpretation and review of laboratory results Abnormal [facility] Procedureson 07-08-2024 [employer] Authentication Interface Message Text Transthoracic Echocardiographic Report Name: CRUZ Bro MENDEZ Physician: : [id number] Referring NAIN DODD MD Physician: Age: 53 Law Secretary: CARLENE Gauthier Exam Date: 07/08/2024 Fellow: 02:02 PM CVT: PCP: Gender: Female Height 149.86 cm Weight 99.792 kg Encounter #: BSA 1.92 m2 Study IP Non-Unit BMI 44.43 kg/m2 Location: Technical Fair-Good Quality: Type of Study: TTE procedure: 2D echocardiogram, M-Mode, Doppler , Color Doppler. Indications for Study:Shortness of Breath/Dyspnea. Tech. Comments Patient identified by name and date of . Doctor's order(s) verified. Patient's preferred language is Indonesian . Supine BP: 125/77 mmHg Patient Status: Routine Left Ventricle Value Normal Value Normal LVIDd: 4.1 cm <5.7 cm Post. Wall 0.9 cm <1.2 cm Thickness: Septum 0.8 cm <1.2 cm LV FS: 34.15 % 30-40% Diastolic: Systolic 2.7 cm <4 cm LV Mass 117.64g Dimension: LV Mass Index: 61 g/m2 <110 Women<120 Men Left Atrium LA Dimension: 3.4 cm <3.92cm Right Cavities Ventricle RV (apical 4): 3 cm <4.3 cm Vessels Sinus of 2.5cm Valsalva: Findings/Conclusions Chambers LV Left ventricular systolic function is normal. The left ventricular ejection fraction (LVEF) is 70% +/- 5%by the triplane summation of disc (Bingham's rule) method. Left ventricular size is normal. LA Normal left atrium. The left atrial volume index is 21 mL/m2 (normal: <35 mL/m2, mild: 35-41 mL/m2, moderate: 42-48 mL/m2, severe: >48 mL/m2). RV Normal right ventricular size and function. The tricuspid annular plane systolic excursion (TAPSE, a marker of RV systolic function) is normal at 27 mm (normal >16 mm). RA Normal right atrium. Valves AV Normal aortic valve. There is trivial aortic regurgitation. There is no evidence of aortic stenosis. MV Normal mitral valve. TV Normal tricuspid valve. There is physiologic tricuspid regurgitation. PV Normal pulmonic valve. Great Vessels Normal sinus of Valsalva. Pericardium/Pleura No evidence of a pericardial effusion. Hemodynamics Estimated pulmonary artery systolic pressure is 37 mmHg +/- 5 mmHg. (Upper normal is <40 mmHg). Estimated RA pressure is 5 mmHg. Summary Left ventricular systolic function is normal. The left ventricular ejection fraction (LVEF) is 70% +/- 5% Normal RV systolic function. No hemodynamically significant valve disease. Noninvasive hemodynamic assessment is consistent with normal pulmonary artery systolic pressure. See above for further details. Authenticated by: Electronically signed and authenticated by SAMUEL TORRES MD(Interpreting physician) on 07/08/2024 03:38 PM Invalid Interpretation Code [employer] Student Noteon 07-08-2024 [employer] Authentication Interface Message Text NEUROLOGY INITIAL CONSULT NOTE Reason for Consult: MS Flare, dyspnea, fatigue, blurry vision, Consulted by: Yousif Gillette MD HPI: Bryan Cruz is a 53 year old female with PMHx of MS relapsing/remitting, on zeposia, chronic headaches, crack/cocaine use (90 days sober), depression, fibroids, stroke, who initially presented from sober living facility to ED via EMS for evaluation of syncopal episode and SOB at rest that has been ongoing for appx 1.5 weeks. At that time, pt stated that she felt her symptoms were similar to prior MS flare. She noted that she missed one dose of zeposia the day before ED presentation. Prior cord signal noted demyelination at C2-C3 that was unchanged in 06/04/24. In the ED, there were no no acute overnight heart failure findings on exam. CTA did not reveal a PE, but did show cardiac insufficiency. Cardiac enzymes were normal. Pt was admitted to Medicine Team 6 floor. On interview today, pt reports that symptoms began a few days ago beginning with loss of balance progressing to weakness of both legs (R leg weaker than L). Around that time she also had blurry vision with throbbing eye pain bilaterally and a constant occipital headache. She has been taking tylenol for the pain which has helped. Pt reports that she has had loss of sensation over her fingers on both hands, but not in her toes. She has noticed recent hoarseness of her voice. States her shortness of breath is still present but improved compared to when she presented to the ED. She cannot lie flat. She described what seemed to be an apneic event. Also reports falling twice due to lightheadedness. She has been fatigued throughout stay in hospital. Denies any urinary urgency or loss ofcontinence with this current flare. Notes that in past, she has had urinary retention with what she believes are MS flares. Pt reports that her past flares usually taper off and improve, but current flare worsened. She has never been hospitalized for a MS flare before. Last episode was around 4-5 months ago. Pt denies any common cold symptoms such as fever or cough. She has been followed by a neurologist and states she has been given steroids in the past for MS flares. Of note, patient has had recent stressors related to her housing situation. Review of Systems ROS as in the HPI. 10 point ROS otherwise reviewed for complaint and are negative. Past Medical History: Diagnosis Date Current every day smoker 05/08/2022 Added secondary to documentation in Social History. History of cocaine abuse (HCC) 05/08/2022 Hyperlipidemia 05/08/2022 Morbid obesity with BMI of 40.0-44.9, adult 02/17/2020 Multiple sclerosis exacerbation (HCC) 03/30/2020 Vitamin D deficiency 07/19/2023 No past surgical history on file. No family history on file. Social History Socioeconomic History Marital status: Single Social Drivers of Health Food Insecurity: Food Insecurity Present (07/07/2024) Hunger Vital Sign Worried About Running Out of Food in the Last Year: Sometimes true Transportation Needs: Unknown (07/07/2024) PRAPARE - Transportation Lack of Transportation (Medical): No Intimate Partner Violence: Unknown (07/07/2024) Humiliation, Afraid, Rape, and Kick questionnaire Emotionally Abused: No Vitals: 07/08/24 0824 BP: 113/63 Pulse: 67 Resp: 18 Temp: 99.7 ???F (37.6 ???C) SpO2: 95% No intake or output data in the 24 hours ending 07/08/24 1257 Current Facility-Administered Medications: lidocaine (LIDODERM) 4 % patch, 1 Patch, Transdermal, Every 24 hours, Yousif Gillette MD, 1 Patch at 07/08/24 1124 baclofen (LIORESAL) 20 MG tablet, 20 mg, Oral, Daily with breakfast, Yousif Gillette MD baclofen (LIORESAL) 20 MG tablet, 40 mg, Oral, At Bedtime, Yousif Gillette MD, 40 mg at 07/08/24 0006 famotidine (PEPCID) tablet, 20 mg, Oral, 2x Daily, Yousif Gillette MD, 20 mg at 07/08/24 0858 DULoxetine (CYMBALTA) capsule, 60 mg, Oral, At Bedtime, Yousif Gillette MD, 60 mg at 07/08/24 0006 atorvastatin (LIPITOR) tablet, 20 mg, Oral, Daily, Yousif Gillette MD, 20 mg at 07/08/24 0858 acetaminophen (TYLENOL) tablet, 500 mg, Oral, Q8H PRN, Yousif Gillette MD, 500 mg at 07/08/24 0858 enoxaparin (LOVENOX) 40 MG/0.4ML injection 40 mg, 40 mg, Subcutaneous, Daily, Yousif Gillette MD, 40 mg at 07/07/24 1717 lidocaine (LIDODERM) 4 % patch, 2 Patch, Transdermal, Every 24 hours, Yousif Gillette MD, 2 Patch at 07/07/24 1455 Exam Neurologic: Cognition: Sedation: none Level of consciousness: awake, alert, but tired Affect: normal Orientation: oriented Attention: normal Language: intact fluency, Fund of knowledge: appropriate Cranial Nerves CN II: Vision: visual leger intact to finger count Pupils: Equal, reactive to light bilaterally CN III, IV, : Extraocular movements: intact CN V: Facial sensation: Asymmetric, diminished facial sensation on right forehead, cheeks, chin compared to left side of face (more content not included)... Normal [facility] TSHon 07-08-2024 Interpretation and review of laboratory results Normal [facility] Qn 1.463 m[IU]/L [facility] Comment on above: Referance range for women as applicable: First Trimester: 0. 050 to 3.700 uIU/mL Second Trimester: 0. 310 to 4.350 uIU/mL Third Trimester: 0. 410 to 5.180 uIU/mL [facility] TSH 1.463 uIU/mL Normal 0.450-5.330 [facility] Comment on above: Result Comment: Refe jia range for women as applicable: First Trimester: 0. 050 to 3.700 uIU/mL Second Trimester: 0. 310 to 4.350 uIU/mL Third Trimester: 0. 410 to 5.180 uIU/mL Performed By: #### C H8, MG, HEPATIC, TSH HS ####[facility] [id number] [place], [id number] VITAMIN D, 25-HYDROXYon 12-0 25-hydroxyvitamin D IA [Mass/Vol] 20 ng/mL Low 30 - 100 ng/mL [facility] Interpretation and review of laboratory results Abnormal [facility] Deficient : <20.0 ng/mL Insufficient : 20.0-29.9 ng/mL Sufficient : 30.0 - 100.0 ng/mL Potential Toxicity : >100.0 ng/mL [facility] VITD25 20.0 ng/mL Low 30-100 [facility] [employer] [facility] Comment on above: Order Comment: Defic ient : <20.0 ng/mLInsufficient : 20.0-29.9 ng/mLSufficient : 30.0 - 100.0 ng/mLPotential Toxicity : >100.0 ng/mL Performed By: #### C Frederic K #### [facility] [address] [place] [address], Assessment AND Plan Noteon 1 09-07-2023 [employer] Authentication Interface Message Text Continue zeposia at discharge, pt ask facility to bring in for dispense. Will review presentation with neurology as well as indication for repeat imaging. Given stable MR C spine findings within 2 months Consider ophthalmology eval given blurred vision. Normal [facility] [employer] [facility] [employer] Authentication Interface Message Text Continue lipitor 20mg Normal [facility] [employer] [facility] [employer] Authentication Interface Message Text Check levels, offer vitamin D replacement supplementation Normal [facility] [employer] [facility] [employer] Authentication Interface Message Text Encourage cessation, offer nicotine replacement Normal [facility] [employer] [facility] [employer] Authentication Interface Message Text In remission Normal [facility] [employer] [facility] [employer] Authentication Interface Message Text Obtain echocardiogram given findings on CTA. F/u NT-pro BNP. Normal [facility] [employer] [facility] [employer] Authentication Interface Message Text Encourage lifestyle changes, pt stopped cocaine use in remission. Encourage tobacco cessation Normal [facility] [employer] [facility] BASIC METABOLIC PANELon 12-0 Anion gap [Moles/Vol] 13 mmol/L Normal 10-20 [facility] [employer] [facility] Comment on above: Performed By: #### Isaac H8, MG #### [facility] [address] [place] [address], Calcium [Mass/Vol] 8.8 mg/dL Normal 8.6-10.3 [facility] Comment on above: Performed By: #### Isaac H8, MG #### [facility] [address] [place] [address], Chloride [Moles/Vol] 104 mmol/L Normal 98-107 [facility] Comment on above: Performed By: #### Isaac H8, MG #### [facility] [address] [place] [address], CO2 [Moles/Vol] 30 mmol/L Normal 21-31 [facility] Comment on above: Performed By: #### Isaac H8, MG #### [facility] [address] [place] [address], Creatinine [Mass/Vol] 0.66 mg/dL Normal 0.60-1.20 [facility] Comment on above: Result Comment: Clark sly icteric; may falsely decrease creatinine Performed By: #### Isaac H8, MG #### [facility] [address] [place] [address], ESTIMATED GFR (CKD-EPI) 104 mL/min/1.73sqm Normal >=60 [facility] Comment on above: Result Comment: 2020 CKD EPI Equation using Creatinine without Race Comment: Estimated glomerular filtration rate (eGFR) is calculated without a race coefficient. Values should be interpreted in the context of the patient's full clinical presentation. Reference: 1. Jimmy C, Merlin M, Nancy CANO, et al.. A Unifying Approach for GFR Estimation: Recommendations of the NKF-ASN Task Force on Reassessing the Inclusion of Race in Diagnosing Kidney Disease. [place] Journal of Kidney Diseases 202;79(2):268-88.e1. 2. N Engl J Med 1 Vol. 385 Issue 19 Pages 7995-6413 Performed By: #### Isaac H8, MG #### S [facility] LAB[facility] [address] [place] [address], Glucose [Mass/Vol] 89 mg/dL Normal 74-109 [facility] Comment on above: Performed By: #### Isaac H8, MG #### [facility] [address] [place] [address], Potassium [Moles/Vol] 7.8 mmol/L Critically high 3.5-5.0 [facility] Comment on above: Result Comment: Hemo lysis present Performed By: #### Isaac H8, MG #### [facility] [address] [place] [address], Sodium [Moles/Vol] 139 mmol/L Normal 136-145 [facility] Comment on above: Performed By: #### Isaac H8, MG #### [facility] [address] [place], [place], Urea nitrogen [Mass/Vol] 12 mg/dL Normal 7-25 [facility] Comment on above: Performed By: #### C H8, #### [facility] LAB[facility]ATORY [address] [place], [place], Basic metabolic 2000 panelOr dered By: Kali Hayes on 07-07-2024 Anion gap [Moles/Vol] 13 mmol/L 10 - 20 [facility] Calcium [Mass/Vol] 8.8 mg/dL 8.6 - 10. 3 mg/dL [facility] Chloride [Moles/Vol] 104 mmol/L 98 - 10 7 mmol/L [facility] CO2 [Moles/Vol] 30 mmol/L 21 - 31 mmol/L [facility] Creatinine [Mass/Vol] 0.66 mg/dL 0.60 - 1.20 mg/dL [facility] Comment on above: Grossly icteric; may falsely decrease creatinine GFR/1.73 sq M.predicted CKD-EPI (S/P/Bld) [Vol rate/Area] 104 - PINF [facility] Comment on above: 2020 CKD EPI Equatio n using Creatinine without Race Comment: Estimated glomerular filtration rate (eGFR) is calculated without a race coefficient. Values should be interpreted in the context of the patient's full clinical presentation. Reference: 1. Jimmy C, Merlin M, Nancy CANO, et al.. A Unifying Approach for GFR Estimation: Recommendations of the NKF-ASN Task Force on Reassessing the Inclusion of Race in Diagnosing Kidney Disease. [place] Journal of Kidney Diseases 202;79(2):268-88.e1. 2. N Engl J Med 2020 Vol. 385 Issue 19 Pages 1104-6449 Glucose [Mass/Vol] 89 mg/dL 74 - 109 mg/dL [facility] Interpretation and review of laboratory results Abnormal [facility] Potassium [Moles/Vol] 7.8 mmol/L Critically high 3.5 - 5.0 mmol/L [facility] Comment on above: Hemolysis present Sodium [Moles/Vol] 139 mmol/L 136 - 145 mmol/L [facility] Urea nitrogen [Mass/Vol] 12 mg/dL 7 - 25 mg/dL [facility] CBC WITH DIFFERENTIALon 12-0 Basophils (Bld) [#/Vol] 0.03 10*3/uL 0.00 - 0.20 K/uL [facility] Basophils/100 WBC (Bld) 0.3 % NINF - 1.9 % [facility] Eosinophils (Bld) [#/Vol] 0.28 10*3/uL 0.00 - 0.70 K/uL [facility] Eosinophils/100 WBC (Bld) 3.4 % 0.1 - 4.0 % [facility] Erythrocyte distribution width (RBC) [Ratio] 13.3 % 11.5 - 14.5 % [facility] Hematocrit (Bld) [Volume fraction] 45.3 % 36.0 - 46.0 % [facility] Hemoglobin (Bld) [Mass/Vol] 14.7 g/dL 12.0 - 15.0 g/dL [facility] Interpretation and review of laboratory results Abnormal [facility] Lymphocytes (Bld) [#/Vol] 0.72 10*3/uL Low 1.00 - 4.80 K/uL [facility] Lymphocytes/100 WBC (Bld) 8.5 % Low 24.0 - 44.0 % [facility] MCH (RBC) [Entitic mass] 30.2 pg 26.0 - 34.0 pg [facility] MCHC (RBC) [Mass/Vol] 32.5 g/dL 32.0 - 35.9 g/dL [facility] MCV (RBC) [Entitic vol] 93 fL 80 - 100 fL [facility] Monocyte distribution width Auto (Bld) [Entitic vol] 18 NINF - 20 [facility] Monocytes (Bld) [#/Vol] 0.57 10*3/uL 0.20 - 1.00 K/uL [facility] Monocytes/100 WBC (Bld) 6.8 % 2.0 - 11.0 % [facility] Neutrophils (Bld) [#/Vol] 6.83 10*3/uL 1.50 - 8.00 K/uL [facility] Neutrophils/100 WBC (Bld) 81 % High 31.0 - 76.0 % [facility] Platelet mean volume (Bld) [Entitic vol] 8.9 fL 7.5 - 11.2 fL [facility] Platelets (Bld) [#/Vol] 323 10*3/uL 150 - 400 K/uL [facility] RBC (Bld) [#/Vol] 4.87 10*6/uL [facility] WBC (Bld) [#/Vol] 8.4 10*3/uL 4.5 - 11.5 K/uL [facility] Basophils (Bld) [#/Vol] 0.03 10*3/uL Normal 0.00-0.20 [facility] Comment on above: Performed By: #### N T-PROBNP, CBCDSAT ####[facility] PATHOLOGY [id number] [place] [address], Basophils/100 WBC (Bld) 0.3 % Normal <=1.9 T [facility] Comment on above: Performed By: #### N T-PROBNP, CBCDSAT ####[facility] PATHOLOGY [id number] [place] [address], Eosinophils (Bld) [#/Vol] 0.28 10*3/uL Normal 0.00-0.70 [facility] Comment on above: Performed By: #### N T-PROBNP, CBCDSAT ####[facility] PATHOLOGY [id number] [place] [address], Eosinophils/100 WBC (Bld) 3.4 % Normal 0.1-4.0 [facility] Comment on above: Performed By: #### N T-PROBNP, CBCDSAT ####[facility] PATHOLOGY [id number] [place] [address], Erythrocyte distribution width (RBC) [Ratio] 13.3 % Normal 11.5-14.5 [facility] Comment on above: Performed By: #### N T-PROBNP, CBCDSAT ####[facility] PATHOLOGY [id number] [place] [address], Hematocrit (Bld) [Volume fraction] 45.3 % Normal 36.0-46.0 [facility] Comment on above: Performed By: #### N T-PROBNP, CBCDSAT ####[facility] PATHOLOGY [id number] [place] [address], Hemoglobin (Bld) [Mass/Vol] 14.7 g/dL Normal 12.0-15.0 [facility] Comment on above: Performed By: #### N T-PROBNP, CBCDSAT ####[facility] PATHOLOGY [id number] [place] [address], Lymphocytes (Bld) [#/Vol] 0.72 10*3/uL Low 1.00-4.80 [facility] Comment on above: Performed By: #### N T-PROBNP, CBCDSAT ####[facility] PATHOLOGY [id number] [place] [address], Lymphocytes/100 WBC (Bld) 8.5 % Low 24.0-44.0 [facility] Comment on above: Performed By: #### N T-PROBNP CBCDSAT ####[facility] PATHOLOGY [id number] [place] [address], MCH (RBC) [Entitic mass] 30.2 pg Normal 26.0-34.0 [facility] Comment on above: Performed By: #### N T-PROBNP CBCDSAT ####[facility] PATHOLOGY [id number] [place] [address], MCHC (RBC) [Mass/Vol] 32.5 g/dL Normal 32.0-35.9 [facility] Comment on above: Performed By: #### N T-PROBNP CBCDSAT ####[facility] PATHOLOGY [id number] [place] [address], MCV (RBC) [Entitic vol] 93 fL Normal 80-100 T [facility] Comment on above: Performed By: #### N T-PROBNP, CBCDSAT ####[facility] PATHOLOGY [id number] [place] [address], MONOCYTE DISTRIBUTION WIDTH 18 Normal <=20 [facility] Comment on above: Performed By: #### N T-PROBNP CBCDSAT ####[facility] PATHOLOGY [id number] [place] [address], Monocytes (Bld) [#/Vol] 0.57 10*3/uL Normal 0.20-1.00 [facility] Comment on above: Performed By: #### N T-PROBNP CBCDSAT ####[facility] [id number] [place], [place], Monocytes/100 WBC (Bld) 6.8 % Normal 2.0-11.0 [facility] Comment on above: Performed By: #### N T-PROBNP, CBCDSAT ####[facility] PATHOLOGY [id number] [place], [place], Neutrophils (Bld) [#/Vol] 6.83 10*3/uL Normal 1.50-8.00 [facility] Comment on above: Performed By: #### N T-PROBNP, CBCDSAT ####[facility] PATHOLOGY [id number] [place], [place], Neutrophils/100 WBC (Bld) 81.0 % High 31.0-76.0 [facility] Comment on above: Performed By: #### N T-PROBNP, CBCDSAT ####[facility] PATHOLOGY [id number] [place] [address], Platelet mean volume (Bld) [Entitic vol] 8.9 fL Normal 7.5-11.2 [facility] Comment on above: Performed By: #### N T-PROBNP, CBCDSAT ####[facility] PATHOLOGY [id number] [place] [address], Platelets (Bld) [#/Vol] 323 10*3/uL Normal 150-400 [facility] Comment on above: Performed By: #### N T-PROBNP, CBCDSAT ####[facility] PATHOLOGY [id number] [place], [place], RBC (Bld) [#/Vol] 4.87 10*6/uL Normal 4.00-5.20 [facility] Comment on above: Performed By: #### N T-PROBNP, CBCDSAT ####[facility] PATHOLOGY [id number] [place] [address], WBC (Bld) [#/Vol] 8.4 10*3/uL Normal 4.5-11.5 [facility] Comment on above: Performed By: #### N T-PROBNP, CBCDSAT ####[facility] PATHOLOGY [id number] [place] [address], COVID/INFLUENZAOrdered By: Ricardo Rivas on 07-07-2024 FLUAV RNA CRISTIAN+probe Ql (Nph) Not detected Not Detected [facility] Comment on above: This assay was perfo rmed using [employer] RTPCR technology. FLUBV RNA CRISTIAN+probe Ql (Nph) Not detected Not Detected [facility] Comment on above: This assay was perfo rmed using [employer] RTPCR technology. Interpretation and review of laboratory results [facility] SARS-CoV-2 (COVID-19) Ab IA Ql Not Detected results are indicative of the absence of SARS-CoV-2 in the specimen submitted for testing. False negative results are possible based on the timing and quality of specimen submitted for testing. [facility] SARS-CoV-2 (COVID-19) RNA CRISTIAN+probe Ql (Unsp spec) Not detected Not Detected [facility] Comment on above: This assay was perfo rmed using [employer] RTPCR technology. [facility] COVID/INFLUENZAon 07-07-2024 INFLUENZA A Not detected Normal Not Detected [facility] Comment on above: Order Comment: Not D etected results are indicative of the absence of SARS-CoV-2 in the specimen submitted for testing. False negative results are possible based on the timing and quality of specimen submitted for testing. Result Comment: This assay was performed using [employer] RTPCR technology. Performed By: #### F JEREMIAH/COVID #### S PATHOLOGY LABORATORY [address] [place] [address], INFLUENZA B Not detected Normal Not Detected [facility] Comment on above: Order Comment: Not D etected results are indicative of the absence of SARS-CoV-2 in the specimen submitted for testing. False negative results are possible based on the timing and quality of specimen submitted for testing. Result Comment: This assay was performed using [employer] RTPCR technology. Performed By: #### F JEREMIAH/COVID #### S [facility] LAB[facility]AT[facility] [address] [place] [address], SARS-CoV-2 (COVID-19) RNA CRISTIAN+probe Ql (Unsp spec) Not detected Normal Not Detected [facility] Comment on above: Order Comment: Not D etected results are indicative of the absence of SARS-CoV-2 in the specimen submitted for testing. False negative results are possible based on the timing and quality of specimen submitted for testing. Result Comment: This assay was performed using [employer] RTPCR technology. Performed By: #### F JEREMIAH/DREW #### [facility] [address] [place], [address] [address] HEAD W/O CONTRASTon 07-07 CT HEAD W/O CONTRAST EXAMINATION: CT HEA D W/O CONTRAST 07/07/2024 12:44 PM CLINICAL HISTORY: recurrent falls with +LOC ASSOCIATED DIAGNOSIS: recurrent falls with +LOC ORDERING PROVIDER: MASTER [employer]APP[employer] TECHNOLOGISTS NOTE: COMPARISON: None TECHNIQUE: Thin axial imaging of the head was performed without intravenous contrast. FINDINGS: No mass or acute hemorrhage. No evidence of acute infarct. The ventricles are within normal limits for age. The skull, paranasal sinuses and tympanomastoid cavities are normal. IMPRESSION: No acute intracranial abnormality. MACRO: None Normal [facility] CT Head WO contrastOrdered B y: Fredy Naidu on 07-07-2024 CT DLP 1070.5 (mGy.cm) [facility] Work Phone: CT Series Head [facility] Work Phone: CTDI VOL 62.0 (mGy) [facility] Work Phone: PHANTOM TYPE IEC Head Dosimetry Phantom [facility] Work Phone: [facility] Work Phone: CT Head WO contraston 2023 EXAMINATION: CT HEAD W/O CONTRAST 07/07/2024 12:44 PM CLINICAL HISTORY: recurrent falls with +LOC ASSOCIATED DIAGNOSIS: recurrent falls with +LOC ORDERING PROVIDER: MASTER [employer] TECHN[employer]ISTS NOTE: COMPARISON: None TECHNIQUE: Thin axial imaging of the head was performed without intravenous contrast. FINDINGS: No mass or acute hemorrhage. No evidence of acute infarct. The ventricles are within normal limits for age. The skull, paranasal sinuses and tympanomastoid cavities are normal. IMPRESSION: No acute intracranial abnormality. MACRO: None RADIOLOGY Fredy Naidu MD - 07/07/2024 EXAMINATION: CT HEAD W/O CONTRAST 07/07/2024 12:44 PM CLINICAL HISTORY: recurrent falls with +LOC ASSOCIATED DIAGNOSIS: recurrent falls with +LOC ORDERING PROVIDER: MASTER PAPPAS TECHNDAVID NOTE: COMPARISON: None TECHNIQUE: Thin axial imaging of the head was performed without intravenous contrast. FINDINGS: No mass or acute hemorrhage. No evidence of acute infarct. The ventricles are within normal limits for age. The skull, paranasal sinuses and tympanomastoid cavities are normal. IMPRESSION: No acute intracranial abnormality. MACRO: None [facility] Radiology Study observation (narrative) [facility] CTA CHEST PULMONARY EMBOLISM W/on 07-07-2024 CTA CHEST PULMONARY EMBOLISM W/ EXAMINATION: CTA CHEST PULMONARY EMBOLISM W/ 07/07/2024 03:52 PM CLINICAL HISTORY: Pulmonary embolism suspected ASSOCIATED DIAGNOSIS: Pulmonary embolism suspected ORDERING PROVIDER: MASTER LUNDY NOTE: COMPARISON: None TECHNIQUE: Axial images of the chest were obtained from above the lung apices through the level of the adrenal glands during the bolus administration of intravenous contrast. Multiplanar and 3D maximum intensity projection reformulation's were created from the raw CT data which were interpreted in conjunction with the axial images to render the findings listed below. Before infusion of intravenous contrast, radiology personnel investigated the possibility of an allergic history and of any history of reaction to iodinated contrast material. Contrast Protocol: Omnipaque 350 [>or =100lb] 100 ml [<100 lb] 1 ml per 1 lb. INTRA-PROCEDURE MEDS: iohexol (OMNIPAQUE) 350 MG/ML injection 100 mL Route: Intravenous Push FINDINGS: Exam Quality: Overall exam quality is satisfactory. Pulmonary arterial enhancement is adequate, the breath hold is suboptimal, and there are significant artifacts impacting image quality. Pulmonary Arteries: There are no filling defects within the pulmonary arterial system to suggest pulmonary embolus, to the segmental level. Cardiovasculature: Borderline cardiomegaly. There is contrast reflux into the IVC suggestive of cardiac insufficiency. Mediastinum/Pericardi um: Unremarkable Pleura: Unremarkable Central Airways: Widely patent. Lungs: No focal consolidation. Nodules: No nodules are present that require follow up. Lymph Nodes: No thoracic lymphadenopathy is evident. Visualized musculoskeletal structures: No acute fracture or destructive osseous lesion is identified. Included images of the upper abdomen: No acute process identified. IMPRESSION: 1. No PE identified. PE cannot be evaluated beyond the segmental level due to the limitations above. 2. Borderline cardiomegaly, with contrast reflux into the IVC suggestive of cardiac insufficiency. MACRO: None Normal [facility] [employer] [facility] CTA Pulmonary arteries for p ulmonary embolus W contrast IVOrdered By: Tate Snow on 07-07-2024 CT DLP 510.2 (mGy.cm) [facility] Work Phone: CT Series Chest,Chest,Chest [facility] Work Phone: CTDI VOL 5.3 (mGy),12.1 (mGy),17.0 (mGy) [facility] Work Phone: LIMITED SEGMENTAL No PE identified. PE cannot be evaluated beyond the segmental level due to the limitations above. [facility] Work Phone: PHANTOM TYPE IEC Body Dosimetry Phantom,IEC Body Dosimetry Phantom,IEC Body Dosimetry Phantom [facility] Work Phone: [facility] Work Phone: CTA Pulmonary arteries for p ulmonary embolus W contrast Carol 07-07-2024 EXAMINATION: CTA CHEST PULMONARY EMBOLISM W/ 07/07/2024 03:52 PM CLINICAL HISTORY: Pulmonary embolism suspected ASSOCIATED DIAGNOSIS: Pulmonary embolism suspected ORDERING PROVIDER: MASTER PAPPAS TECHNOLOGISTS NOTE: COMPARISON: None TECHNIQUE: Axial images of the chest were obtained from above the lung apices through the level of the adrenal glands during the bolus administration of intravenous contrast. Multiplanar and 3D maximum intensity projection reformulation's were created from the raw CT data which were interpreted in conjunction with the axial images to render the findings listed below. Before infusion of intravenous contrast, radiology personnel investigated the possibility of an allergic history and of any history of reaction to iodinated contrast material. Contrast Protocol: Omnipaque 350 [>or =100lb] 100 ml [<100 lb] 1 ml per 1 lb. INTRA-PROCEDURE MEDS: iohexol (OMNIPAQUE) 350 MG/ML injection 100 mL Route: Intravenous Push FINDINGS: Exam Quality: Overall exam quality is satisfactory. Pulmonary arterial enhancement is adequate, the breath hold is suboptimal, and there are significant artifacts impacting image quality. Pulmonary Arteries: There are no filling defects within the pulmonary arterial system to suggest pulmonary embolus, to the segmental level. Cardiovasculature: Borderline cardiomegaly. There is contrast reflux into the IVC suggestive of cardiac insufficiency. Mediastinum/Pericardi um: Unremarkable Pleura: Unremarkable Central Airways: Widely patent. Lungs: No focal consolidation. Nodules: No nodules are present that require follow up. Lymph Nodes: No thoracic lymphadenopathy is evident. Visualized musculoskeletal structures: No acute fracture or destructive osseous lesion is identified. Included images of the upper abdomen: No acute process identified. IMPRESSION: 1. No PE identified. PE cannot be evaluated beyond the segmental level due to the limitations above. 2. Borderline cardiomegaly, with contrast reflux into the IVC suggestive of cardiac insufficiency. MACRO: None RADIOLOGY Tate Snow M D - 07/07/2024 EXAMINATION: CTA CHEST PULMONARY EMBOLISM W07/07/2024 03:52 PM CLINICAL HISTORY: Pulmonary embolism suspected ASSOCIATED DIAGNOSIS: Pulmonary embolism suspected ORDERING PROVIDER: MASTER PAPPAS TECHNOLOGISTS NOTE: COMPARISON: None TECHNIQUE: Axial images of the chest were obtained from above the lung apices through the level of the adrenal glands during the bolus administration of intravenous contrast. Multiplanar and 3D maximum intensity projection reformulation's were created from the raw CT data which were interpreted in conjunction with the axial images to render the findings listed below. Before infusion of intravenous contrast, radiology personnel investigated the possibility of an allergic history and of any history of reaction to iodinated contrast material. Contrast Protocol: Omnipaque 350 [>or =100lb] 100 ml [<100 lb] 1 ml per 1 lb. INTRA-PROCEDURE MEDS: iohexol (OMNIPAQUE) 350 MG/ML injection 100 mL Route: Intravenous Push FINDINGS: Exam Quality: Overall exam quality is satisfactory. Pulmonary arterial enhancement is adequate, the breath hold is suboptimal, and there are significant artifacts impacting image quality. Pulmonary Arteries: There are no filling defects within the pulmonary arterial system to suggest pulmonary embolus, to the segmental level. Cardiovasculature: Borderline cardiomegaly. There is contrast reflux into the IVC suggestive of cardiac insufficiency. Mediastinum/Pericardi um: Unremarkable Pleura: Unremarkable Central Airways: Widely patent. Lungs: No focal consolidation. Nodules: No nodules are present that require follow up. Lymph Nodes: No thoracic lymphadenopathy is evident. Visualized musculoskeletal structures: No acute fracture or destructive osseous lesion is identified. Included images of the upper abdomen: No acute process identified. IMPRESSION: 1. No PE identified. PE cannot be evaluated beyond the segmental level due to the limitations above. 2. Borderline cardiomegaly, with contrast reflux into the IVC suggestive of cardiac insufficiency. MACRO: None [facility] Radiology Study observation (narrative) [facility] ED Noteson 07-07-2024 [employer] Authentication Interface Message Text Transition of Care; Hand off Note Is admission screen complete? Yes Special/Social Considerations: NO Mobility: good Continence: WNL Radiology Testing: CTA CHEST PULMONARY EMBOLISM W/ Final Result CT HEAD W/O CONTRAST Final Result XR CHEST PA+LAT 2 VIEWS Final Result Code Status: Full Code AGE: [age] year old SEX: female WEIGHT: 96.6 kg Chief Complaint: Chief Complaint Patient presents with Shortness of breath Patient states that she began to notice her MS flaring up for the past week, since then has been having worsening body wide pain especially in diaphragm that is causing shortness of breath. Also admits to multiple falls this week Admitting Diagnosis: Clinical Impression Diagnosis Comment Dyspnea, unspecified type [R06.00] Multiple sclerosis exacerbation (HCC) [G35] Cardiac insufficiency (HCC) [I50.9] O2 requirement: no Oxygen Therapy: Oxygen Therapy O2 Device: Room air IV/LDA access: Peripheral IV Access: 07/07/24 1334 20 gauge Right Antecubital (Active) No Known Allergies Out of Reference Range ED Results Display - if a lab has no value displayed it is normal OR not it is not completed BASIC METABOLIC PANEL - Abnormal; Notable for the following components: Result Value Ref Range Potassium 7.8 (*) 3.5 - 5.0 mmol/L All other components within normal limits CBC WITH DIFFERENTIAL - Abnormal; Notable for the following components: Neutrophils 81.0 (*) 31.0 - 76.0 % Lymphocytes 8.5 (*) 24.0 - 44.0 % Lymphocytes # 0.72 (*) 1.00 - 4.80 K/uL All other components within normal limits MAGNESIUM - Normal HIGH SENSITIVITY CARDIAC TROPONIN I (HS-CTNI) SERIAL TESTING 0HR (BASELINE) - Normal Narrative: Elevated troponin can result from acute myocardial infarction (coronary etiology) or myocardial injury (non-coronary etiology) - always consider both. Interval test times for ruling out acute coronary syndrome (ACS) are 2 hours. All results are reported in whole numbers representing ng/L. Results obtained by different labs or methods are not comparable. For ruling out ACS, lab values are always used in conjunction with clinical risk assessment (e.g., HEART score*). Interpreting initial value in ruling out ACS Less than 5 ng/L - below lower limit of quantification - essentially rules out ACS if chest pain began more than 3 hours prior to test and assessed risk is low. 5 - 49 ng/L - indeterminate - consider repeat value in 2 hours depending on risk assessment. 50 ng/L or greater - concern for ACS or myocardial injury. Interpreting delta values in ruling out ACS. Always compare to initial value obtained: Absolute change (rise or fall) of less than 5 ng/L - essentially rules out ACS if assessed clinical risk is low. Absolute change (rise or fall) of 5 - 19 ng/L - indeterminate - consider another repeat value in 2 hours depending on assessed clinical risk. Absolute change (rise or fall) of 20 ng/L or greater - concern for ACS or myocardial injury. Any absolute value of 50 ng/L or greater - concern for ACS or myocardial injury. *When using hsTnI to calculate the HEART score, use the 99% Upper Reference Limit of 15 ng/L as the normal limit (i.e. <=15 ng/L = 0 points, 16-45 ng/L = 1 point, >45 ng/L = 2 points). Disposition Intermediate hsTnI values DO NOT mandate admission to a cardiology or telemetry unit. They need to be interpreted within the clinical context using provider judgement. COVID/INFLUENZA - Normal Narrative: Not Detected results are indicative of the absence of SARS-CoV-2 in the specimen submitted for testing. False negative results are possible based on the timing and quality of specimen submitted for testing. POTASSIUM, WHOLE BLOOD - Normal HIGH SENSITIVITY CARDIAC TROPONIN I (HS-CTNI) SERIAL TESTING 2HR - Normal Narrative: Elevated troponin can result from acute myocardial infarction (coronary etiology) or myocardial injury (non-coronary etiology) - always consider both. Interval test times for ruling out acute coronary syndrome (ACS) are 2 hours. All results are reported in whole numbers representing ng/L. Results obtained by different labs or methods are not comparable. For ruling out ACS, lab values are always used in conjunction with clinical risk assessment (e.g., HEART score*). Interpreting initial value in ruling out ACS Less than 5 ng/L - below lower limit of quantification - essentially rules out ACS if chest pain began more than 3 hours prior to test and assessed risk is low. 5 - 49 ng/L - indeterminate - consider repeat value in 2 hours depending on risk assessment. 50 ng/L or greater - concern for ACS or myocardial injury. Interpreting delta values in ruling out ACS. Always compare to initial value obtained: Absolute change (rise or fall) of less than 5 ng/L - essentially rules out ACS if assessed clinical risk is low. Absolute change (rise or fall) of 5 - 19 ng/L - indeterminate - consider ano (more content not included)... Normal [facility] [employer] Authentication Interface Message Text notified of critical POTASIUM value of 7.8. Hard copy of results given to . Jodi Jose, EMR . Normal [facility] [employer] Authentication Interface Message Text Pt to edxr, ct. Pt given gown, encouraged to change. ES Normal [facility] [employer] [facility] ED Provider Noteson 07-07-20 [employer] Authentication Interface Message Text EMERGENCY DEPARTMENT - VISIT NOTE --------- HISTORY OF PRESENT ILLNESS ----- Chief Complaint Patient presents with Shortness of breath Patient states that she began to notice her MS flaring up for the past week, since then has been having worsening body wide pain especially in diaphragm that is causing shortness of breath. Also admits to multiple falls this week Silver Wrapper: not needed - patient preferred language is Indonesian. The history is provided by the Patient. Bryan Cruz is a 53 year old female with PMHx of MS relapsing/remitting, on zeposia, chronic headaches, crack/cocaine use (90 days sober), depression, fibroids, stroke, presenting from sober living facility to ED via EMS for evaluation of SOB at rest that has been ongoing for appx 1.5 weeks. States initially intermittent SOB however today became constant prompting to ED. Endorsing associated chest tightness and myalgias. Endorses 1 mechanical and syncopal episode earlier last week with questionable LOC/head trauma. Reports she has experienced similar sx in the past when having MS flare, notes she missed dose of zeposia yesterday. Denies associated focal weakness, sensory loss, urinary/bowel incontinence, saddle anesthesia. Denies associated fevers, chills, cough/congestion, nausea/vomiting, abdominal pain, urinary symptoms, bloodly bowel movements (last BM yesterday). Denies sick contact. Denies history of blood clots. +tobacco use (1 cigarette q3 days), denies recreational drug and alcohol use. I saw and evaluated the patient, repeating schmitt portions of the exam. I reviewed the resident's note and agree with the residents findings and plan as documented in the resident's note. Dr. John Colunga PAST HISTORY Pertinent Past History: as stated above Past Medical History: Diagnosis Date Current every day smoker 05/08/2022 Added secondary to documentation in Social History. History of cocaine abuse (HCC) 05/08/2022 Hyperlipidemia 05/08/2022 Morbid obesity with BMI of 40.0-44.9, adult 02/17/2020 Multiple sclerosis exacerbation (HCC) 03/30/2020 Vitamin D deficiency 07/19/2023 Patient Active Problem List: Current every day smoker [F17.200] History of cocaine abuse (HCC) [F14.11] Hyperlipidemia [E78.5] Major depressive disorder [F32.9] Morbid obesity with BMI of 40.0-44.9, adult [E66.01, Z68.41] Multiple sclerosis exacerbation (HCC) [G35] Stroke (cerebrum) (HCC) [I63.9] Vitamin D deficiency [E55.9] Shortness of breath [R06.02] Cardiac insufficiency (HCC) [I50.9] Hyperlipidemia, unspecified hyperlipidemia type [E78.5] Dyspnea, unspecified type [R06.00] Major depressive disorder in partial remission, unspecified whether recurrent (HCC) [F32.4] Pertinent Social History: residing at sober living facility PHYSICAL EXAM - BP 138/58 Pulse 62 Temp 97.5 ???F (36.4 ???C) Resp 16 Ht 4' 11 (1.499 m) Wt 213 lb (96.6 kg) SpO2 100% BMI 43.02 kg/m??? PHYSICAL EXAM General: A AND O x3, NAD HEENT: EOMI but painful. PERRL. Cardiac: RRR. 2+ radial and DP pulses bilaterally Pulmonary: expiratory wheezing in all lung leger, no crackles, no increased work of breathing Abdominal: soft, non-distended, nontender to palpation MSK: LE non-edematous without evidence of skin erythema/discoloratio n. No palpable cords. All 4 extremities with reproducible TTP. Neuro: Following commands. CN 2-12 intact, 4/5 motor strength in b/l UE. 3/5 motor strength in b/l LE. No acute sensory deficits. No aphasia or dysarthria. No dysmetria. confirmed, Dr. John Colunga MEDICAL DECISION MAKING and ED COURSE Patient presents with 1.5 weeks of worsening SOB, chest tightness and myalgias. Hemodynamically stable on arrival in ED, afebrile. Physical exam reveals expiratory wheezing and symmetric muscle weakness/tenderness. Ddx include but not limited to CVA due to recent falls, ACS, arrhythmia, PE, MS flare up, electrolyte abnormalities, anemia, viral illness. Lower suspicion for heart failure, no evidence of crackles or volume overload on exam. Alternate etiologies considered include aortic dissection, however low suspicion given: Nonfocal neurological exam, symmetric pulses, blood pressure WNL Plan- obtain CBC, BMP, mg, troponin, covid/flu, EKG, CXR, EKG NSR 60 BPM, normal axis, normal NV/QT interval, isolated T-wave inversions in III and V1, no ischemic changes/STEMI pattern appreciated. Refer to ED course for additional workup interpretation and management. Evaluated by EM attending John Colunga Course: ED Course as of 07/07/24 1745 SunJul 07, 2024 1222 WBC: 8.4 Low suspicion for systemic inflammation/infectio n in absence of leukocytosis. No evidence of anemia. [DK (more content not included)... Normal [facility] EKG 12 LEAD - PERFORMon 12-0 Diagnosis Sinus bradycardia Otherwise normal ECG No previous ECGs available Confirmed by MELISSA BAKER ([id number]) on 07/07/2024 3:37:53 PM [facility] P wave [facility] by EKG 55 BPM [facility] P wave axis 60 degrees [facility] P-R Interval 182 ms [facility] Q-T interval 454 ms [facility] Q-T interval corrected 434 ms [facility] QRS axis 42 degrees [facility] QRS duration 62 ms [facility] T wave axis 18 degrees [facility] H AND José Miguel 07-07-2024 [employer] Authentication Interface Message Text Hospital Medicine H AND P Subjective HPI: 53 year old female with PMHx of MS relapsing/remitting, on zeposia, chronic headaches, crack/cocaine use (90 days sober), depression, fibroids, stroke, presenting from sober living facility to ED via EMS for evaluation of syncopal episode and SOB at rest that has been ongoing for appx 1.5 weeks. Ongoing dyspnea with cardiac insufficiency. Pt feels her symptoms are similar to prior MS flare. Prior cord signal noted demyelination at C2-3 that was unchanged in 06/04/24 In ED no acute overnight heart failure findings on examination. CTA did not reveal a PE but did show cardiac insufficiency. Cardiac enzymes normal VSS, COVID-flu negative Pt reports her symptoms started as fatigue and pain over 1 week ago. States that she noticed worsening blurred vision. Reports that she usually has improvement in her symptoms but noticed pain became more generalized. Pain is worse in back of her head/neck area. Unsure if she had a fall, but reports that is what her sober living facility noted. Only missed one dose prior to arrival of her MS drug zeposia. She reports worsening dyspnea and shortness of breath. No mucous production. No leg swelling. No orthopnea reported. Reports not lying flat at baseline to sleep. Last flare was about 5-6 months ago. Past Medical History: Diagnosis Date Current every day smoker 05/08/2022 Added secondary to documentation in Social History. History of cocaine abuse (HCC) 05/08/2022 Hyperlipidemia 05/08/2022 Morbid obesity with BMI of 40.0-44.9, adult 02/17/2020 Multiple sclerosis exacerbation (HCC) 03/30/2020 Vitamin D deficiency 07/19/2023 No past surgical history on file. Patient has no known allergies. No family history on file. Social History Tobacco Use Smoking status: Not on file Smokeless tobacco: Not on file Substance Use Topics Alcohol use: Not on file Objective Physical Exam: BP 138/58 Pulse 62 Temp 97.5 ???F (36.4 ???C) Resp 16 SpO2 100% Gen pleasant, resting in ED HENT NCAT supple no LAD. Mild proptosis. CV RRR nls 1s2 lungs CTA b/L, diminished Abd soft NTND Ext no edema Neuro DELVALLE spontanoeusly. Strength 4/5 in both upper and lower extremities. Data select: Labwork is notable for normal CBC panel, covid/flu negative, K 3.8, HsTn 5 Order for tomorrow: Labwork BMP, CBC , vitamin D Assessment AND Plan Multiple sclerosis exacerbation (HCC) Continue zeposia at discharge, pt ask facility to bring in for dispense. Will review presentation with neurology as well as indication for repeat imaging. Given stable MR C spine findings within 2 months Consider ophthalmology eval given blurred vision. Morbid obesity with BMI of 40.0-44.9, adult Encourage lifestyle changes, pt stopped cocaine use in remission. Encourage tobacco cessation History of cocaine abuse (HCC) In remission Current every day smoker Encourage cessation, offer nicotine replacement Vitamin D deficiency Check levels, offer vitamin D replacement supplementation Hyperlipidemia Continue lipitor 20mg Shortness of breath Obtain echocardiogram given findings on CTA. F/u NT-pro BNP. DVT PPX: lovenox CODE: No Order DISPO: return to sober living home. Yousif Gillette MD Normal [facility] [employer] [facility] HIGH SENSITIVITY CARDIAC TRO PONIN I (HS-CTNI) SERIAL TESTING 0HR (BASELINE)on 07-07-2024 Troponin I.cardiac DL <= 0.01 ng/mL [Mass/Vol] 5 ng/L NINF - 15 ng/L [facility] HS-CTNI 0 HR (BASELINE) 5 ng/L Normal <=15 T he [facility] Comment on above: Order Comment: [place] alva troponin can result from acute myocardial infarction (coronary etiology) or myocardial injury (non-coronary etiology) - always consider both. Interval test times for ruling out acute coronary syndrome (ACS) are 2 hours. All results are reported in whole numbers representing ng/L. Results obtained by different labs or methods are not comparable. For ruling out ACS, lab values are always used in conjunction with clinical risk assessment (e.g., HEART score*). Interpreting initial value in ruling out ACS Less than 5 ng/L - below lower limit of quantification - essentially rules out ACS if chest pain began more than 3 hours prior to test and assessed risk is low. 5 - 49 ng/L - indeterminate - consider repeat value in 2 hours depending on risk assessment. 50 ng/L or greater - concern for ACS or myocardial injury. Interpreting delta values in ruling out ACS. Always compare to initial value obtained: Absolute change (rise or fall) of less than 5 ng/L - essentially rules out ACS if assessed clinical risk is low. Absolute change (rise or fall) of 5 - 19 ng/L - indeterminate - consider another repeat value in 2 hours depending on assessed clinical risk. Absolute change (rise or fall) of 20 ng/L or greater - concern for ACS or myocardial injury. Any absolute value of 50 ng/L or greater - concern for ACS or myocardial injury. *When using hsTnI to calculate the HEART score, use the 99% Upper Reference Limit of 15 ng/L as the normal limit (i.e. <=15 ng/L = 0 points, 16-45 ng/L = 1 point, >45 ng/L = 2 points). Disposition Intermediate hsTnI values DO NOT mandate admission to a cardiology or telemetry unit. They need to be interpreted within the clinical context using provider judgement. Performed By: #### H STRP SERIAL #### [facility] [address] [place], [id number] HIGH SENSITIVITY CARDIAC TRO PONIN I (HS-CTNI) SERIAL TESTING [facility] 07-07-2024 Troponin I.cardiac DL <= 0.01 ng/mL [Mass/Vol] 5 ng/L NINF - 15 ng/L [facility] HS-CTNI (0 HR-2HR) 0 ng/L Normal <5 [facility] Comment on above: Order Comment: [place] alva troponin can result from acute myocardial infarction (coronary etiology) or myocardial injury (non-coronary etiology) - always consider both. Interval test times for ruling out acute coronary syndrome (ACS) are 2 hours. All results are reported in whole numbers representing ng/L. Results obtained by different labs or methods are not comparable. For ruling out ACS, lab values are always used in conjunction with clinical risk assessment (e.g., HEART score*). Interpreting initial value in ruling out ACS Less than 5 ng/L - below lower limit of quantification - essentially rules out ACS if chest pain began more than 3 hours prior to test and assessed risk is low. 5 - 49 ng/L - indeterminate - consider repeat value in 2 hours depending on risk assessment. 50 ng/L or greater - concern for ACS or myocardial injury. Interpreting delta values in ruling out ACS. Always compare to initial value obtained: Absolute change (rise or fall) of less than 5 ng/L - essentially rules out ACS if assessed clinical risk is low. Absolute change (rise or fall) of 5 - 19 ng/L - indeterminate - consider another repeat value in 2 hours depending on assessed clinical risk. Absolute change (rise or fall) of 20 ng/L or greater - concern for ACS or myocardial injury. Any absolute value of 50 ng/L or greater - concern for ACS or myocardial injury. *When using hsTnI to calculate the HEART score, use the 99% Upper Reference Limit of 15 ng/L as the normal limit (i.e. <=15 ng/L = 0 points, 16-45 ng/L = 1 point, >45 ng/L = 2 points). Disposition Intermediate hsTnI values DO NOT mandate admission to a cardiology or telemetry unit. They need to be interpreted within the clinical context using provider judgement. Performed By: #### H STRP 2HR #### [facility] [address] [place] [address], [phone] HS-CTNI 2 HR 5 ng/L Normal <=15 [facility] Comment on above: Order Comment: [place] alva troponin can result from acute myocardial infarction (coronary etiology) or myocardial injury (non-coronary etiology) - always consider both. Interval test times for ruling out acute coronary syndrome (ACS) are 2 hours. All results are reported in whole numbers representing ng/L. Results obtained by different labs or methods are not comparable. For ruling out ACS, lab values are always used in conjunction with clinical risk assessment (e.g., HEART score*). Interpreting initial value in ruling out ACS Less than 5 ng/L - below lower limit of quantification - essentially rules out ACS if chest pain began more than 3 hours prior to test and assessed risk is low. 5 - 49 ng/L - indeterminate - consider repeat value in 2 hours depending on risk assessment. 50 ng/L or greater - concern for ACS or myocardial injury. Interpreting delta values in ruling out ACS. Always compare to initial value obtained: Absolute change (rise or fall) of less than 5 ng/L - essentially rules out ACS if assessed clinical risk is low. Absolute change (rise or fall) of 5 - 19 ng/L - indeterminate - consider another repeat value in 2 hours depending on assessed clinical risk. Absolute change (rise or fall) of 20 ng/L or greater - concern for ACS or myocardial injury. Any absolute value of 50 ng/L or greater - concern for ACS or myocardial injury. *When using hsTnI to calculate the HEART score, use the 99% Upper Reference Limit of 15 ng/L as the normal limit (i.e. <=15 ng/L = 0 points, 16-45 ng/L = 1 point, >45 ng/L = 2 points). Disposition Intermediate hsTnI values DO NOT mandate admission to a cardiology or telemetry unit. They need to be interpreted within the clinical context using provider judgement. Performed By: #### H STRP 2HR #### [facility] [address] [place] [address], MAGNESIUMon 07-07-2024 Interpretation and review of laboratory results Normal [facility] Magnesium [Mass/Vol] 2 mg/dL 1.9 - 2 .7 mg/dL [facility] Comment on above: Hemolysis present [facility] Magnesium [Mass/Vol] 2.0 mg/dL Normal 1.9-2.7 [facility] Comment on above: Result Comment: Hemo lysis present Performed By: #### C H8, MG #### [facility] [address] [place] [address], NT PRO-BNPon 07-07-2024 Interpretation and review of laboratory results Normal [facility] Natriuretic peptide.B prohormone N-Terminal IA [Mass/Vol] 92 pg/mL NINF - 300 pg/mL [facility] Age(Years) Results (pg/mL) Interpretation All <300 Negative: Heart failure unlikely. <50 >/=300 - 50-75 >/=300 - >75 >/=300 - <50 >450 Positive: 50-75 >900 Heart failure likely. >75 >1800 [facility] Natriuretic peptide B (Bld) [Mass/Vol] 92 pg/mL Normal <300 [facility] Comment on above: Order Comment: Age(Y ears) Results (pg/mL) InterpretationAll <300 Negative: Heart failure unlikely.<50 >/=300 - /=300 - 75 >/=300 - 450 Positive:50-75 >900 Heart failure likely.>75 >1800 Performed By: #### N T-PROBNP, CBCDSAT ####[facility] [id number] [place], [place], POTASSIUM, WHOLE BLOODOrdere d By: Jessie Rodriguez on 07-07-2024 Interpretation and review of laboratory results Normal [facility] Potassium [Moles/Vol] 3.8 mmol/L 3.5 - 5.0 mmol/L [facility] POTASSIUM, WHOLE BLOODon Potassium [Moles/Vol] 3.8 mmol/L Normal 3.5-5.0 [facility] Comment on above: Performed By: #### C R K #### [facility] [address] [place], [place], Progress Noteson 07-07-2024 [employer] Authentication Interface Message Text 07/07/242021 Admit Note (Completed by Receiving Unit) Arrival Time: 2021 Arrived to: 8 [facility] Arrived from: ED Mode of Transport Wheelchair Transported by: Patient Transporter Admission Note Addendum Admission Attire Dressed in hospital gown Patient Behavior Calm Affect WNL Normal [facility] Troponin I.cardiac DL <= 0.0 1 ng/mL [Mass/Vol]on 07-07-2024 DELTA hs-cTnI, (0 HR-2HR) 0 ng/L NINF - 5 ng/L [facility] Interpretation and review of laboratory results [facility] Elevated troponin ca n result from acute myocardial infarction (coronary etiology) or myocardial injury (non-coronary etiology) - always consider both. Interval test times for ruling out acute coronary syndrome (ACS) are 2 hours. All results are reported in whole numbers representing ng/L. Results obtained by different labs or methods are not comparable. For ruling out ACS, lab values are always used in conjunction with clinical risk assessment (e.g., HEART score*). Interpreting initial value in ruling out ACS Less than 5 ng/L - below lower limit of quantification - essentially rules out ACS if chest pain began more than 3 hours prior to test and assessed risk is low. 5 - 49 ng/L - indeterminate - consider repeat value in 2 hours depending on risk assessment. 50 ng/L or greater - concern for ACS or myocardial injury. Interpreting delta values in ruling out ACS. Always compare to initial value obtained: Absolute change (rise or fall) of less than 5 ng/L - essentially rules out ACS if assessed clinical risk is low. Absolute change (rise or fall) of 5 - 19 ng/L - indeterminate - consider another repeat value in 2 hours depending on assessed clinical risk. Absolute change (rise or fall) of 20 ng/L or greater - concern for ACS or myocardial injury. Any absolute value of 50 ng/L or greater - concern for ACS or myocardial injury. *When using hsTnI to calculate the HEART score, use the 99% Upper Reference Limit of 15 ng/L as the normal limit (i.e. <=15 ng/L = 0 points, 16-45 ng/L = 1 point, >45 ng/L = 2 points). Disposition Intermediate hsTnI values DO NOT mandate admission to a cardiology or telemetry unit. They need to be interpreted within the clinical context using provider judgement. [facility] Interpretation and review of laboratory results Normal [facility] Elevated troponin ca n result from acute myocardial infarction (coronary etiology) or myocardial injury (non-coronary etiology) - always consider both. Interval test times for ruling out acute coronary syndrome (ACS) are 2 hours. All results are reported in whole numbers representing ng/L. Results obtained by different labs or methods are not comparable. For ruling out ACS, lab values are always used in conjunction with clinical risk assessment (e.g., HEART score*). Interpreting initial value in ruling out ACS Less than 5 ng/L - below lower limit of quantification - essentially rules out ACS if chest pain began more than 3 hours prior to test and assessed risk is low. 5 - 49 ng/L - indeterminate - consider repeat value in 2 hours depending on risk assessment. 50 ng/L or greater - concern for ACS or myocardial injury. Interpreting delta values in ruling out ACS. Always compare to initial value obtained: Absolute change (rise or fall) of less than 5 ng/L - essentially rules out ACS if assessed clinical risk is low. Absolute change (rise or fall) of 5 - 19 ng/L - indeterminate - consider another repeat value in 2 hours depending on assessed clinical risk. Absolute change (rise or fall) of 20 ng/L or greater - concern for ACS or myocardial injury. Any absolute value of 50 ng/L or greater - concern for ACS or myocardial injury. *When using hsTnI to calculate the HEART score, use the 99% Upper Reference Limit of 15 ng/L as the normal limit (i.e. <=15 ng/L = 0 points, 16-45 ng/L = 1 point, >45 ng/L = 2 points). Disposition Intermediate hsTnI values DO NOT mandate admission to a cardiology or telemetry unit. They need to be interpreted within the clinical context using provider judgement. [employer] XR CHEST PA+LAT 2 VIEWSon XR CHEST PA+LAT 2 VIEWS EXAMINATION: XR CHEST PA+LAT 2 VIEWS 07/07/2024 12:20 PM CLINICAL HISTORY: Dyspnea at rest ASSOCIATED DIAGNOSIS: Dyspnea at rest ORDERING PROVIDER: MASTER LUNDY NOTE: COMPARISON: None FINDINGS: Cardiomediastinal silhouette: Normal. Lungs/Pleura: No focal pulmonary consolidation, effusion or pneumothorax. Lung volumes are low, causing crowding of the bronchovascular structures at the lung bases. Musculoskeletal: Degenerative spurring within the thoracic spine. IMPRESSION: No acute cardiopulmonary abnormality identified. MACRO: None Normal [facility] [employer] [facility] XR Chest PA and Lateralon EXAMINATION: XR CHES T PA+LAT 2 VIEWS 07/07/2024 12:20 PM CLINICAL HISTORY: Dyspnea at rest ASSOCIATED DIAGNOSIS: Dyspnea at rest ORDERING PROVIDER: MASTER LUNDY NOTE: COMPARISON: None FINDINGS: Cardiomediastinal silhouette: Normal. Lungs/Pleura: No focal pulmonary consolidation, effusion or pneumothorax. Lung volumes are low, causing crowding of the bronchovascular structures at the lung bases. Musculoskeletal: Degenerative spurring within the thoracic spine. IMPRESSION: No acute cardiopulmonary abnormality identified. MACRO: None RADIOLOGY Natasha Humphrey M D - 07/07/2024 EXAMINATION: XR CHEST PA+LAT 2 VIEWS 07/07/2024 12:20 PM CLINICAL HISTORY: Dyspnea at rest ASSOCIATED DIAGNOSIS: Dyspnea at rest ORDERING PROVIDER: MASTER PAPPAS TECHNDAVID NOTE: COMPARISON: None FINDINGS: Cardiomediastinal silhouette: Normal. Lungs/Pleura: No focal pulmonary consolidation, effusion or pneumothorax. Lung volumes are low, causing crowding of the bronchovascular structures at the lung bases. Musculoskeletal: Degenerative spurring within the thoracic spine. IMPRESSION: No acute cardiopulmonary abnormality identified. MACRO: None [facility] Radiology Study observation (narrative) [facility] XR Chest PA and LateralOrder ed By: Natasha Humphrey on 07-07-2024 [facility] Work Phone: CNOVon 06-16-2024 CNOV Office Visit (GMIGMN ) BRYAN CRUZ ([id number]) 1970 F [facility] Date Time Provider Department 06/16/24 3:00 PM FREDA HERNANDEZ IGMN During your visit today, we recorded the following information about you: Blood pressure Weight 138/82 102.3 kg Freda Hernandez, CATALYST IMPREGNATOR.COMPENSATION CONSULTING MANAGER 06/17/2024 10:53 AM Signed [facility] Department of Benign Gynecology [facility] PATIENT NAME: Bryan Cruz PCP: Sandro Hinojosa MD DATE: 06/16/2024 Bryan Cruz is a 53 year old old female who presents for a follow up visit to discuss US and EMB results and plan of care HPI: Patient presented to office requesting hysterectomy. At last visit we Imaging was ordered and an EMB was performed. PATHOLOGY 06/05/2024 FINAL DIAGNOSIS A. Endometrium, biopsy: - Very scant benign endocervical and squamous cells, with rare superficial strip of glandular cells with ciliary/tubal metaplasia, see comment Diagnosis Comment There is no definitive endometrial tissue present for evaluation in this sampling. IMAGING 06/10/2024 Indication Postmenopausal bleeding. Fibroids Impression Enlarged retroverted fibroid uterus that measures 165 mm x 72 mm x 133 mm. The largest fibroids are described below. 1. Size 50 mm x 54 mm x 54 mm. Mean 52.8 mm. Vol 77.084 cm?. Anterior, Subserous 2. Size 50 mm x 43 mm x 61 mm. Mean 51.2 mm. Vol 67.993 cm?. Right lateral wall, Subserous 3. Size 38 mm x 27 mm x 39 mm. Mean 34.4 mm. Vol 20.508 cm?. Right lateral wall, Subserous 4. Size 39 mm x 45 mm x 36 mm. Mean 39.9 mm. Vol 32.717 cm?. Left lateral wall, Subserous Estimated uterine volume is 824 cc compared to 1187 cc on 08/02/2021. Endometrium measures 6.8 mm and contains fluid that outlines a 4 x 3 x 5 mm polyp. Both ovaries are visualized and appear normal. No adnexal masses were observed. There is no free fluid visualized in the peritoneal cavity. Recommendations Thickened endometrium with possible polyp. Consider endometrial sampling and hysteroscopic evaluation as clinically indicated. Uterus Uterus: Visualized Uterus position: retroverted Description of uterine malformations: ill defined Myometrium: heterogeneous Endometrium: fluid seen with possible polyp Uterus length 165 mm Uterus width 133 mm Uterus height 72 mm Uterus Vol 824.4 cm? Endometrial thickness single layer 5.0 mm Endom. th. single layer 4.0 mm Side: posterior Side: anterior Endometrial thickness, total 6.8 mm Fibroids: Fibroids identified Uterine fibroid D1 50 mm Uterine fibroid D2 54 mm Uterine fibroid D3 54 mm Uterine fibroid mean 52.8 mm Uterine fibroid vol 77.084 cm? Uterine fibroids findings: Anterior, Subserous Uterine fibroid D1 50 mm Uterine fibroid D2 43 mm Uterine fibroid D3 61 mm Uterine fibroid mean 51.2 mm Uterine fibroid vol 67.993 cm? Uterine fibroids findings: Right lateral wall, Subserous Uterine fibroid D1 38 mm Uterine fibroid D2 27 mm Uterine fibroid D3 39 mm Uterine fibroid mean 34.4 mm Uterine fibroid vol 20.508 cm? Uterine fibroids findings: Right lateral wall, Subserous Uterine fibroid D1 39 mm Uterine fibroid D2 45 mm Uterine fibroid D3 36 mm Uterine fibroid mean 39.9 mm Uterine fibroid vol 32.717 cm? Uterine fibroids findings: Left lateral wall, Subserous Polyps: Polyps identified Uterine polyp D1 4 mm Uterine polyp D2 3 mm Uterine polyp D3 5 mm Uterine polyp mean 4.0 mm Right Ovary Rt ovary: Visualized Left Ovary Lt ovary: Visualized Cul de Sac Visualized. no free fluid visualized Last visit 06/05/2024 CHIEF COMPLAINT: Bryan Cruz is a pleasant 53 year old female who presents with a history of FIBROIDS. Former patient of Dr. Montalvo. Was scheduled for hysterectomy but couldn't decide if she wanted that vs myomectomy. Ultimately surgery was cancelled due to lack of approval by insurance. She is back now requesting a hysterectomy. She also has PMB. Was referred in Summer by Dr. Malloy. Bryan Cruz reports being diagnosed with fibroids many years ago. Her most bothersome symptoms include PMB, pressure and pain. She reports her periods stopped age 50. Had an episode of bleeding less than a week ago Her pain is felt at these locations: pressure in pelvis, She does not miss work/school due to pain. She has not visited the Emergency Room for the pain. She does not desire future child bearing. She is currently sexually active. She has had the following work up thus far: EMB in 2021 IMAGING: No recent imaging She has had an endometrial biopsy. 08/25/2021 CONVERTED FINAL DIAGNOSIS Endometrium, biopsy - Limited sample of superficial inactive endometrium. - Squamous epithelium with no significant patho (more content not included)... Normal [facility] 06-10-2024 Indication Postmenopausal bleeding. Fibroids Impression Enlarged retroverted fibroid uterus that measures 165 mm x 72 mm x 133 mm. The largest fibroids are described below. 1. Size 50 mm x 54 mm x 54 mm. Mean 52.8 mm. Vol 77.084 cm . Anterior, Subserous 2. Size 50 mm x 43 mm x 61 mm. Mean 51.2 mm. Vol 67.993 cm . Right lateral wall, Subserous 3. Size 38 mm x 27 mm x 39 mm. Mean 34.4 mm. Vol 20.508 cm . Right lateral wall, Subserous 4. Size 39 mm x 45 mm x 36 mm. Mean 39.9 mm. Vol 32.717 cm . Left lateral wall, Subserous Estimated uterine volume is 824 cc compared to 1187 cc on 08/02/2021. Endometrium measures 6.8 mm and contains fluid that outlines a 4 x 3 x 5 mm polyp. Both ovaries are visualized and appear normal. No adnexal masses were observed. There is no free fluid visualized in the peritoneal cavity. Recommendations Thickened endometrium with possible polyp. Consider endometrial sampling and hysteroscopic evaluation as clinically indicated. Menstrual History Cycle: postmenopausal Method Transabdominal, transvaginal, 3D ultrasound examination, Color Doppler examination Uterus Uterus: Visualized Uterus position: retroverted Description of uterine malformations: ill defined Myometrium: heterogeneous Endometrium: fluid seen with possible polyp Uterus length 165 mm Uterus width 133 mm Uterus height 72 mm Uterus Vol 824.4 cm Endometrial thickness single layer 5.0 mm Endom. th. single layer 4.0 mm Side: posterior Side: anterior Endometrial thickness, total 6.8 mm Fibroids: Fibroids identified Uterine fibroid D1 50 mm Uterine fibroid D2 54 mm Uterine fibroid D3 54 mm Uterine fibroid mean 52.8 mm Uterine fibroid vol 77.084 cm Uterine fibroids findings: Anterior, Subserous Uterine fibroid D1 50 mm Uterine fibroid D2 43 mm Uterine fibroid D3 61 mm Uterine fibroid mean 51.2 mm Uterine fibroid vol 67.993 cm Uterine fibroids findings: Right lateral wall, Subserous Uterine fibroid D1 38 mm Uterine fibroid D2 27 mm Uterine fibroid D3 39 mm Uterine fibroid mean 34.4 mm Uterine fibroid vol 20.508 cm Uterine fibroids findings: Right lateral wall, Subserous Uterine fibroid D1 39 mm Uterine fibroid D2 45 mm Uterine fibroid D3 36 mm Uterine fibroid mean 39.9 mm Uterine fibroid vol 32.717 cm Uterine fibroids findings: Left lateral wall, Subserous Polyps: Polyps identified Uterine polyp D1 4 mm Uterine polyp D2 3 mm Uterine polyp D3 5 mm Uterine polyp mean 4.0 mm Right Ovary Rt ovary: Visualized Left Ovary Lt ovary: Visualized Cul de Sac Visualized. no free fluid visualized Performed By: Richard Clarke RDMS Read By: Dejon Del Toro M.D. MATERNAL MEDICINE [facility] Radiology Study observation (narrative) Jason fabian [facility] CNOVon 06-05-2024 CNOV Office Visit (GMIGMN ) BRYAN CRUZ ([id number]) 1970 F [facility] Date Time Provider Department 06/05/24 2:00 PM [facility] During your visit today, we recorded the following information about you: Blood pressure Weight Height 128/64 100.3 kg 1.524 m Freda Hernandez, CATALYST IMPREGNATOR.COMPENSATION CONSULTING MANAGER 06/05/2024 2:30 PM Signed [facility] Department of Benign Gynecology [facility] PATIENT NAME: Bryan Cruz PCP: Sandro Hinojosa MD DATE: 06/05/2024 Chief Complaint CC: FIBROIDS History of Present Illness: REFERRING PHYSICIAN: Sal Malloy CHIEF COMPLAINT: Bryan Cruz is a pleasant 53 year old female who presents with a history of FIBROIDS. Former patient of Dr. Montalvo. Was scheduled for hysterectomy but couldn't decide if she wanted that vs myomectomy. Ultimately surgery was cancelled due to lack of approval by insurance. She is back now requesting a hysterectomy. She also has PMB. Was referred in Summer by Dr. Malloy. Bryan Cruz reports being diagnosed with fibroids many years ago. Her most bothersome symptoms include PMB, pressure and pain. She reports her periods stopped age 50. Had an episode of bleeding less than a week ago Her pain is felt at these locations: pressure in pelvis, She does not miss work/school due to pain. She has not visited the Emergency Room for the pain. She does not desire future child bearing. She is currently sexually active. She has had the following work up thus far: EMB in 2021 IMAGING: No recent imaging She has had an endometrial biopsy. 08/25/2021 CONVERTED FINAL DIAGNOSIS Endometrium, biopsy - Limited sample of superficial inactive endometrium. - Squamous epithelium with no significant pathologic abnormality. Past Gynecologic History: Last pap cytology: 2023 NILM, HPV neg History of abnormal history No History of STI: No History of PID: No Past Obstetrical History: Vaginal delivery: 2 Section: 2 Ectopic: 0 Miscarriage: 0 EAB: 1 Past Medical History: PAST MEDICAL HISTORY Diagnosis Date Cocaine use reports relapsed in 2019 but now sober again Depression Fibroid Multiple sclerosis ([facility]) Smoking Stroke (cerebrum) ([facility]) 2016 had trouble walking Past Surgical History: PAST SURGICAL HISTORY Procedure Laterality Date >=3 Family History: FAMILY HISTORY Problem Relation Age of Onset Hypertension Mother Diabetes Mother COPD Father Hypertension Sister Diabetes Sister Social History: Social History Tobacco Use Smoking status: Some Days Types: Cigarettes Smokeless tobacco: Never Tobacco comments: Not daily; 3-4 per day when she does smoke. Vaping Use Vaping status: Never Used Substance Use Topics Alcohol use: Not Currently Drug use: Yes Types: Cocaine, Marijuana Comment: Marijuana as needed. history of cocaine states relapsed in 2019 none since then Current Outpatient Medications Medication Sig pregabalin (LYRICA) 300 mg capsule Take 1 capsule by mouth two times a day for 30 days. DULoxetine (CYMBALTA) 30 mg capsule Take 1 capsule by mouth daily at bedtime for 7 days, THEN 2 capsules daily at bedtime. lidocaine (LIDODERM) 5 % Apply 1 Patch as directed once daily. to affected area. Remove patch after 12 hours. ozanimod (ZEPOSIA) 0.92 mg capsule Take 1 capsule by mouth once daily. Obtain blood work for further refills. hydrocortisone 0.5 % cream APPLY TO AFFECTED AREA TWO TIMES A DAY FOR 7 DAYS. atorvastatin (LIPITOR) 20 mg tablet Take 1 tablet by mouth once daily. baclofen 20 mg tablet Take 1 tablet (20mg) by mouth in the morning and afternoon and 2 tablets (40 mg) by mouth in the evening famotidine (PEPCID) 20 mg tablet Take 20 mg by mouth two times a day. acetaminophen (TYLENOL EXTRA STRENGTH) 500 mg tablet Take 2 tablets by mouth three times a day as needed for pain. lidocaine HCL 4 % ptmd Apply 1 Patch to affected area once daily. DULoxetine (CYMBALTA) 60 mg capsule Take 1 capsule by mouth daily at bedtime. Patient should start on October 04, 2023. ergocalciferol 50,000 unit capsule (VITAMIN D2, DRISDOL) Take 1 capsule by mouth one time a week. No current facility-administered medications for this visit. Allergies As of Date: 06/05/2024 Allergen Noted Reaction NSAIDS (NON-STEROIDAL ANTI-INFLAM* 0 Hives TRAMADOL 12/23/2019 Hives Fully Assessed 06/05/2024 PHYSICAL EXAMINATION: Vital Signs: 06/05/24 1346 BP: 128/64 Weight: 100.3 kg (221 lb 1.9 oz) Height: 152.4 cm (5') Body mass index is 43.18 kg/m?. Physical Exam Constitutional: Appearance: Normal appearance. She is obese. Neurological: Mental Status: She is alert. Psychiatric: Mood and Affect: Mood normal. Behavior: Behavior normal. Thought Content: Thought content (more content not included)... Normal [facility] ENDO BIOPSYon 06-05-2024 [facility] SURGICAL PATHOLOGYon [address] [facility] Comment on above: Order Comment: Speci men Type: TISSUE SPECIMENOrdering Facility: [facility] Address: [address] [place] [address] Result Comment: [facility] Pathology Report Case: [id number] Authorizing Provider: Freda Hernandez, Collected: 06/05/2024 02:13 PM CATALYST IMPREGNATOR.SHAYLA Ordering Location: Gynecology Received: 06/05/2024 05:40 PM Pathologist: Patricia Benitez MD Specimen: Endometrium, Biopsy Performed By: #### S ####[facility] LABCLIA [id number] [place] [address] [place] CLINICAL HISTORY pmb Normal [facility] Comment on above: Order Comment: Speci men Type: TISSUE SPECIMENOrdering Facility: [facility] Address: [address] [place] [address] Performed By: #### S ####[facility] [facility] LABCLIA [id number] [address] STATES OF [facility] FINAL DIAGNOSIS Normal [facility] Comment on above: Order Comment: Speci men Type: TISSUE SPECIMENOrdering Facility: [facility] Address: [address] [place] [address] Result Comment: A. E ndometrium, biopsy: - Very scant benign endocervical and squamous cells, with rare superficial strip of glandular cells with ciliary/tubal metaplasia, see comment Performed By: #### S ####[facility] LABCLIA [id number] [address] OF [place] FINAL PERFORMING LAB Normal [facility] Comment on above: Order Comment: Speci men Type: TISSUE SPECIMENOrdering Facility: [facility] Address: [address] [place] [address] Result Comment: Diag nostic interpretation performed at [facility], [address] [place] [address] CLIA# [id number] Respiratory Clinician: Anil Gage M.D. Performed By: #### S ####[facility] LABCLIA [id number] [address] STATES OF [place] GROSS DESCRIPTION Normal [facility] Comment on above: Order Comment: Speci men Type: TISSUE SPECIMENOrdering Facility: [facility] Address: [address] [place] [address] Result Comment: A. E ndometrium, Biopsy Received in formalin are multiple carrasco, soft feathery segments of tissue aggregating to 1.3 x 0.7 x 0.1 cm. Totally submitted in one cassette. Gross examination performed at [facility], [address] [place] [address] JT 06/06/2024 12:19 AM Performed By: #### S ####[facility] LABCLIA [id number] [id number], [place] [address] [place] CNCOon 06-04-[address] [facility] MR Cervical spine WO and W c ontrast Carol 06-04-2024 IMPRESSION: 1. STABLE CORD SIGNAL ABNORMALITY AT C2-3 2. NO NEW SUSPICIOUS CORD SIGNAL ABNORMALITIES 3. NO SUSPICIOUS ENHANCEMENT Anatomic Variant: None. Assume 7 cervical vertebrae with counting from the craniocervical junction. Defensive Secondary Coach: PSCB Transcribe Date/Time: Jun 04 2024 11:58A Dictated by : ALLYSSA HARMON MD This examination was interpreted and the report reviewed and electronically signed by: ALLYSSA HARMON MD on Jun 04 2024 12:19PM [facility] DIVISION OF RADIOLOGY * * *Final Report* * * DATE OF EXAM: Jun 04 2024 9:31AM LN 0298 - MRI CERVICAL SPINE WO/W IVCON / PROCEDURE REASON: Multiple sclerosis (HCC) * * * * Physician Interpretation * * * * EXAMINATION: MRI CERVICAL SPINE WO/W IVCON CLINICAL HISTORY: Multiple sclerosis (HCC) TECHNIQUE: Routine cervical spine MR protocol without and with intravenous gadolinium, for which 19 cc of Dotarem were injected intravenously.. MQ: [id number]_[id number] COMPARISON: Cervical MRI 08/28/2023 RESULT: Counting reference: Craniocervical junction. Anatomic Variants: None. Localizer images: No additional findings Alignment: Alignment is anatomic.d Craniocervical junction: Craniocervical junction is normal. Cord: Again seen is some subtle central cord signal abnormality around the level of C2-3. There are no new lesions. There is no suspicious enhancement. Bone marrow signal/fracture: No evidence of pathologic marrow infiltration. No evidence of prior fracture. Cervical soft tissues: The paraspinal soft tissues are within normal limits. There is no significant Central or foraminal narrowing. DIVISION OF RADIOLOGY Provider, Cc Valerie Bliss - 06/04/2024 * * *Final Report* * * DATE OF EXAM: Jun 04 2024 9:31AM LNM 0298 - MRI CERVICAL SPINE WO/W IVCON / PROCEDURE REASON: Multiple sclerosis (HCC) * * * * Physician Interpretation * * * * EXAMINATION: MRI CERVICAL SPINE WO/W IVCON CLINICAL HISTORY: Multiple sclerosis (HCC) TECHNIQUE: Routine cervical spine MR protocol without and with intravenous gadolinium, for which 19 cc of Dotarem were injected intravenously.. MQ: [id number]_[id number] COMPARISON: Cervical MRI 08/28/2023 RESULT: Counting reference: Craniocervical junction. Anatomic Variants: None. Localizer images: No additional findings Alignment: Alignment is anatomic.d Craniocervical junction: Craniocervical junction is normal. Cord: Again seen is some subtle central cord signal abnormality around the level of C2-3. There are no new lesions. There is no suspicious enhancement. Bone marrow signal/fracture: No evidence of pathologic marrow infiltration. No evidence of prior fracture. Cervical soft tissues: The paraspinal soft tissues are within normal limits. There is no significant Central or foraminal narrowing. IMPRESSION IMPRESSION: 1. STABLE CORD SIGNAL ABNORMALITY AT C2-3 2. NO NEW SUSPICIOUS CORD SIGNAL ABNORMALITIES 3. NO SUSPICIOUS ENHANCEMENT Anatomic Variant: None. Assume 7 cervical vertebrae with counting from the craniocervical junction. Defensive Secondary Coach: PSCB Transcribe Date/Time: Jun 04 2024 11:58A Dictated by : ALLYSSA HARMON MD This examination was interpreted and the report reviewed and electronically signed by: ALLYSSA HARMON MD on Jun 04 2024 12:19PM [facility] Radiology Study observation (narrative) Jason fabian [facility] MR Cervical spine WO and W c ontrast IVOrdered By: Ccf Provider on 06-04-2024 [facility] MRI CERVICAL SPINE WO/W IVCO Non 06-04-2024 MRI CERVICAL SPINE WO/W IVCON * * *Final Report* * * DATE OF EXAM: Jun 04 2024 9:31AM LNM 0298 - MRI CERVICAL SPINE WO/W IVCON / PROCEDURE REASON: Multiple sclerosis (HCC) * * * * Physician Interpretation * * * * EXAMINATION: MRI CERVICAL SPINE WO/W IVCON CLINICAL HISTORY: Multiple sclerosis (HCC) TECHNIQUE: Routine cervical spine MR protocol without and with intravenous gadolinium, for which 19 cc of Dotarem were injected intravenously.. MQ: [id number] COMPARISON: Cervical MRI 08/28/2023 RESULT: Counting reference: Craniocervical junction. Anatomic Variants: None. Localizer images: No additional findings Alignment: Alignment is anatomic.d Craniocervical junction: Craniocervical junction is normal. Cord: Again seen is some subtle central cord signal abnormality around the level of C2-3. There are no new lesions. There is no suspicious enhancement. Bone marrow signal/fracture: No evidence of pathologic marrow infiltration. No evidence of prior fracture. Cervical soft tissues: The paraspinal soft tissues are within normal limits. There is no significant Central or foraminal narrowing. IMPRESSION: 1. STABLE CORD SIGNAL ABNORMALITY AT C2-3 2. NO NEW SUSPICIOUS CORD SIGNAL ABNORMALITIES 3. NO SUSPICIOUS ENHANCEMENT Anatomic Variant: None. Assume 7 cervical vertebrae with counting from the craniocervical junction. Defensive Secondary Coach: PSCB Transcribe Date/Time: Jun 04 2024 11:58A Dictated by : ALLYSSA HARMON MD This examination was interpreted and the report reviewed and electronically signed by: ALLYSSA HARMON MD on Jun 04 2024 12:19PM EST [id number] Normal [facility] 25(OH)D3 SerPl-mCncon 2023 25-hydroxyvitamin D3 [Mass/Vol] 28.3 ng/mL Low 31.0-80.0 [facility] Comment on above: Order Comment: Speci men Type: BLOOD SPECIMENOrdering Facility: [facility] Address: [address] [place] [address] Result Comment: Clas sification of 25 [place] Vitamin D status: Deficiency/Insufficiency: < or = 30 ng/ml. Sufficiency/Optimal Levels: 31-80 ng/mL Toxicity: > 100 ng/mL. Test performed by chemiluminescent immunoassay. Performed By: #### 1 989-3 ####[facility] LABCLIA [id number] [place] [address] [place] 25-hydroxyvitamin D3 [Mass/V ol]on 05-08-2024 Interpretation and review of laboratory results Abnormal [facility] The reference range interval was based on an analysis of samples from healthy adults and may not pertain to children from 0-18 years old. [facility] CBC W Auto Differential pane l (Bld)on 05-08-2024 Basophils (Bld) [#/Vol] 0.03 10*3/uL [facility] Basophils/100 WBC (Bld) 0.3 % C [facility] Differential cell count method Nom (Bld) Auto [facility] Eosinophils (Bld) [#/Vol] 0.45 10*3/uL [facility] Eosinophils/100 WBC (Bld) 4.2 % [facility] Erythrocyte distribution width (RBC) [Ratio] 13.3 % 11.5 - 15.0 % [facility] Hematocrit (Bld) [Volume fraction] 45.2 % 36.0 - 46.0 % [facility] Hemoglobin (Bld) [Mass/Vol] 13.5 g/dL 11.5 - 15.5 g/dL [facility] Immature granulocytes (Bld) [#/Vol] 0.05 10*3/uL [facility] Immature granulocytes/100 WBC (Bld) 0.5 % [facility] Interpretation and review of laboratory results Abnormal [facility] Lymphocytes (Bld) [#/Vol] 1.10 10*3/uL [facility] Lymphocytes/100 WBC (Bld) 10.3 % [facility] MCH (RBC) [Entitic mass] 30.4 pg 26.0 - 34.0 pg [facility] MCHC (RBC) [Mass/Vol] 29.9 g/dL Low 30.5 - 36.0 g/dL [facility] MCV (RBC) [Entitic vol] 101.8 fL High 80.0 - 100.0 fL [facility] Monocytes (Bld) [#/Vol] 0.81 10*3/uL [facility] Monocytes/100 WBC (Bld) 7.6 % C [facility] Neutrophils (Bld) [#/Vol] 8.20 10*3/uL High [facility] Neutrophils/100 WBC (Bld) 77.1 % [facility] Nucleated RBC (Bld) [#/Vol] [facility] Nucleated RBC/100 WBC (Bld) [Ratio] 0.0 % /100 WBC [facility] Platelet mean volume (Bld) [Entitic vol] 11.9 fL 9.0 - 12.7 fL [facility] Platelets (Bld) [#/Vol] 352 10*3/uL [facility] RBC (Bld) [#/Vol] 4.44 10*6/uL 3.90 - 5.2 0 m/uL [facility] WBC (Bld) [#/Vol] 10.64 10*3/uL [facility] Basophils (Bld) [#/Vol] 0.03 10*3/uL Normal <0.11 [facility] Comment on above: Order Comment: Speci men Type: BLOOD SPECIMENOrdering Facility: [facility] Address: [address] [place] [address] Performed By: #### 5 7021-8 ####[facility] LABCLIA [id number] [place] [address] [place] Basophils/100 WBC (Bld) 0.3 % Normal [facility] Comment on above: Order Comment: Speci men Type: BLOOD SPECIMENOrdering Facility: [facility] Address: [address] [place] [address] Performed By: #### 5 7021-8 ####[facility] LABCLIA [id number] [place] [address] [place] Differential cell count method Nom (Bld) Auto Normal [facility] Comment on above: Order Comment: Speci men Type: BLOOD SPECIMENOrdering Facility: [facility] Address: [address] [place] [address] Performed By: #### 5 7021-8 ####[facility] LABCLIA [id number] [place] [address] [place] Eosinophils (Bld) [#/Vol] 0.45 10*3/uL Normal <0.46 [facility] Comment on above: Order Comment: Speci men Type: BLOOD SPECIMENOrdering Facility: [facility] Address: [address] [place] [address] Performed By: #### 5 7021-8 ####[facility] LABCLIA [id number] [place] [address] [place] Eosinophils/100 WBC (Bld) 4.2 % Normal [facility] Comment on above: Order Comment: Speci men Type: BLOOD SPECIMENOrdering Facility: [facility] Address: [address] [place] [address] Performed By: #### 5 7021-8 ####[facility] LABIA [id number] [place] [address] [place] Erythrocyte distribution width (RBC) [Ratio] 13.3 % Normal 11.5-15.0 [facility] Comment on above: Order Comment: Speci men Type: BLOOD SPECIMENOrdering Facility: [facility] Address: [address] [place] [address] Performed By: #### 5 7021-8 ####[facility] LABIA [id number] [place] [address] [place] Hematocrit (Bld) [Volume fraction] 45.2 % Normal 36.0-46.0 [facility] Comment on above: Order Comment: Speci men Type: BLOOD SPECIMENOrdering Facility: [facility] Address: [address] [place] [address] Performed By: #### 5 7021-8 ####[facility] LABIA [id number] [place] [address] [place] Hemoglobin (Bld) [Mass/Vol] 13.5 g/dL Normal 11.5-15.5 [facility] Comment on above: Order Comment: Speci men Type: BLOOD SPECIMENOrdering Facility: [facility] Address: [address] [place] [address] Performed By: #### 5 7021-8 ####[facility] LABIA [id number] [place] [address] [place] Immature granulocytes (Bld) [#/Vol] 0.05 10*3/uL Normal <0.10 [facility] Comment on above: Order Comment: Speci men Type: BLOOD SPECIMENOrdering Facility: [facility] Address: [address] [place] [address] Performed By: #### 5 7021-8 ####[facility] LABCLIA [id number] [place] [address] [place] Immature granulocytes/100 WBC (Bld) 0.5 % Normal [facility] Comment on above: Order Comment: Speci men Type: BLOOD SPECIMENOrdering Facility: [facility] Address: [address] [place] [address] Performed By: #### 5 7021-8 ####[facility] LABIA [id number] [place] [address] [place] Lymphocytes (Bld) [#/Vol] 1.10 10*3/uL Normal 1.00-4.00 [facility] Comment on above: Order Comment: Speci men Type: BLOOD SPECIMENOrdering Facility: [facility] Address: [address] [place] [address] Performed By: #### 5 7021-8 ####[facility] LABIA [id number] [place] [address] [place] Lymphocytes/100 WBC (Bld) 10.3 % Normal [facility] Comment on above: Order Comment: Speci men Type: BLOOD SPECIMENOrdering Facility: [facility] Address: [address] [place] [address] Performed By: #### 5 7021-8 ####[facility] LABIA [id number] [place] [address] [place] MCH (RBC) [Entitic mass] 30.4 pg Normal 26.0-34.0 [facility] Comment on above: Order Comment: Speci men Type: BLOOD SPECIMENOrdering Facility: [facility] Address: [address] [place] [address] Performed By: #### 5 7021-8 ####[facility] LABIA [id number] [place] [address] [place] MCHC (RBC) [Mass/Vol] 29.9 g/dL Low 30.5-36.0 [facility] Comment on above: Order Comment: Speci men Type: BLOOD SPECIMENOrdering Facility: [facility] Address: [address] [place] [address] Performed By: #### 5 7021-8 ####[facility] LABCLIA [id number] [place] [address] [place] MCV (RBC) [Entitic vol] 101.8 fL High 80.0-100.0 C [facility] Comment on above: Order Comment: Speci men Type: BLOOD SPECIMENOrdering Facility: [facility] Address: [address] [place] [address] Performed By: #### 5 7021-8 ####[facility] LABIA [id number] [place] [address] [place] Monocytes (Bld) [#/Vol] 0.81 10*3/uL Normal <0.87 [facility] Comment on above: Order Comment: Speci men Type: BLOOD SPECIMENOrdering Facility: [facility] Address: [address] [place] [address] Performed By: #### 5 7021-8 ####[facility] LABIA [id number] [place] [address] [place] Monocytes/100 WBC (Bld) 7.6 % Normal C [facility] Comment on above: Order Comment: Speci men Type: BLOOD SPECIMENOrdering Facility: [facility] Address: [address] [place] [address] Performed By: #### 5 7021-8 ####[facility] LABIA [id number] [place] [address] [place] Neutrophils (Bld) [#/Vol] 8.20 10*3/uL High 1.45-7.50 [facility] Comment on above: Order Comment: Speci men Type: BLOOD SPECIMENOrdering Facility: [facility] Address: [address] [place] [address] Performed By: #### 5 7021-8 ####[facility] LABCLIA [id number] [place] [address] [place] Neutrophils/100 WBC (Bld) 77.1 % Normal [facility] Comment on above: Order Comment: Speci men Type: BLOOD SPECIMENOrdering Facility: [facility] Address: [address] [place] [address] Performed By: #### 5 7021-8 ####[facility] LABCLIA [id number] [place] [address] [place] Nucleated RBC (Bld) [#/Vol] 10*3/uL Normal <0.01 [facility] Comment on above: Order Comment: Speci men Type: BLOOD SPECIMENOrdering Facility: [facility] Address: [address] [place] [address] Performed By: #### 5 7021-8 ####[facility] LABIA [id number] [place] [address] [place] Nucleated RBC/100 WBC (Bld) [Ratio] 0.0 /[address] [facility] Comment on above: Order Comment: Speci men Type: BLOOD SPECIMENOrdering Facility: [facility] Address: [address] [place] [address] Performed By: #### 5 7021-8 ####[facility] LABIA [id number] [place] [address] [place] Platelet mean volume (Bld) [Entitic vol] 11.9 fL Normal 9.0-12.7 [facility] Comment on above: Order Comment: Speci men Type: BLOOD SPECIMENOrdering Facility: [facility] Address: [address] [place] [address] Performed By: #### 5 7021-8 ####[facility] LABIA [id number] [place] [address] [place] Platelets (Bld) [#/Vol] 352 10*3/uL Normal 150-400 [facility] Comment on above: Order Comment: Speci men Type: BLOOD SPECIMENOrdering Facility: [facility] Address: [address] [place] [address] Performed By: #### 5 7021-8 ####[facility] LABCLIA [id number] [place] [address] [place] RBC (Bld) [#/Vol] 4.44 10*6/uL Normal 3.90-5.20 [facility] Comment on above: Order Comment: Speci men Type: BLOOD SPECIMENOrdering Facility: [facility] Address: [address] [place] [address] Performed By: #### 5 7021-8 ####[facility] LABCLIA [id number] [place] [address] [place] WBC (Bld) [#/Vol] 10.64 10*3/uL Normal 3.70-11.00 [facility] Comment on above: Order Comment: Speci men Type: BLOOD SPECIMENOrdering Facility: [facility] Address: [address] [place] [address] Performed By: #### 5 7021-8 ####[facility] LABCLIA [id number] [place] [address] [place] CNOVon 05-08-2024 CNOV Office Visit (NEMSLR ) BRYAN CRUZ ([id number]) 1970 F [place] Date Time Provider Department 05/08/24 9:30 AM RAYMOND KEMP NEMSYUNG During your visit today, we recorded the following information about you: Pulse Blood pressure Weight 64/minute 126/65 96 kg Raymond Kemp APRN.CNP 05/08/2024 2:11 PM Signed [facility] FOLLOWUP/ESTABLISHED PATIENT VISIT PRINCIPAL NEUROLOGIC DIAGNOSIS: Multiple Sclerosis DISEASE SUMMARY Date of onset: 03/2019 Date of diagnosis of MS: 03/2020 Disease course at onset: Relapsing-Remitting Current disease course: Relapsing-Remitting Previous disease therapies: - IVMP x 3 08/2023 (worsening LUE weakness and numbness) Current disease therapy: Zeposia (Jul 2020-Present) Most recent MRI brain: 08/28/23 ([facility]), 06/17/2021 Most recent MRI cervical spine: 08/28/23 ([facility]) Most recent MRI thoracic spine: 08/28/23 ([facility]) CSF: NA JCV serology result and date: 03/2020 negative Brief Disease History: - Mar 2019 bilateral leg weakness, urinary retention - Jul 2019 hyperacute onset L arm numbness and subtle weakness(dropping items) occurring when lifting a duffle bag - Jul 2019-February 2020 noticed balance difficulty CHIEF COMPLAINT: Follow-up on MS disease modifying therapy Usual treating team: Stephan/ Pedro The patient is unaccompanied. The patient was last seen 01/31/24, currently taking Zeposia. Since the patient's last visit the patient reports overall feeling stable. Issues with current therapy: Tolerating medication without side effects. INTERVAL HISTORY: Reports only maybe 2 missed doses of Zeposia Denies new symptoms Denies infection or illness In a sober house in [place] Has been sober about 7 months Doctor at the house has been filling the Lyrica Needs paper prescriptions moving forward as she is moving HH Right hand middle finger continues to lock but is locking longer than it use to Numbness to various parts of face that is unchanged Swelling to BLE in the last week Has headaches to back of left side of head and behind her eyes Does not wear her glasses and knows her prescription is bad Wonders if she needs bifocals Denies vision changes Neuro-QoL Functions (higher=better functioning) Flowsheet Row Office Visit from 07/19/[address] [facility] Office Visit from 04/18/[address] [facility] Office Visit from 10/27/[address] [facility] Upper Extremity Domain T Score 44.53 42.12 42.58 Lower Extremity Domain T Score 40.35 34.04 36.94 Cognitive Function Domain T Score 48.64 46.37 52.55 Positive Affect Well Being T Score -- -- -- Ability To Participate In Social Roles T Score 44.12 33.38 37.21 Satisfaction With Social Roles T Score 41.34 36.98 40.61 Neuro-QoL Symptoms (higher=worse symptoms) Flowsheet [facility] Office Visit from 07/19/[address] [facility] Office Visit from 04/18/[address] [facility] Office Visit from 10/27/[address] [facility] Sleep Domain T Score 57.7 61.86 67.68 Fatigue Domain T Score 56.21 58.38 50.45 Anxiety Domain T Score 48.72 48.87 56.09 Depression Domain T Score 46.25 47.97 55.43 Stigma Domain T Score 36.56 51.87 44.69 Emotional Behavior Dyscontrol T Score -- -- -- has a past medical history of Cocaine use, Depression, Fibroid, Multiple sclerosis ([facility]), Smoking, and Stroke (cerebrum) ([facility]). has a current medication list which includes the following prescription(s): zeposia, pregabalin, atorvastatin, baclofen, cyanocobalamin, acetaminophen, lidocaine hcl, iv contrast, WALKER ROLLATOR SEAT WITH 6 WHEELS - RED, duloxetine, biotene dry mouth oral rinse, docusate sodium, lidocaine, hydrocortisone, duloxetine, famotidine, nicotine, nicotine polacrilex, and ergocalciferol (vitamin d2). EXAM: BP 126/65 Pulse 64 Wt 96 kg (211 lb 10.3 oz) LMP 04/28/2020 (Within Years) BMI 41.33 kg/m? MSPT Results Flowsheet [facility] Office Visit from 07/19/[address] [facility] Office Visit from 04/18/[address] [facility] Office Visit from 10/27/[address] [facility] Processing Speed Total Number Correct 45 46 40 Processing Speed Z score 0.42 0.51 -0.19 Dominant hand -- -- -- MDT Left Hand Time 24.54 27.5 -- MDT Right Hand Time 28.79 23.69 -- Walking Speed Test (25 feet) -- 8.56 -- General Appearance: well appearing, in no acute distress Mental status evaluation during the interview and examination showed normal level of consciousness, orientation, language, memory, praxis, and higher intellectual function Affect: Normal Extraocular movements: full, without EVIN Facial movements: Intact bilaterally Speech: normal Muscle tone: Right arm spasticity: None Right leg spasticity: None Left arm spasticity: None Left leg spasticity: None Muscle strength (#/5): Right Left Upper Extremity: Deltoids 5 5 Biceps 5 5 Triceps 5 5 Admeasurer 5 5 Dorsal interossei 5 5 Lower extremity: Iliopsoas 5 5- Quadriceps 5 5 Hamstri (more content not included)... Normal [facility] Comprehensive metabolic 2000 panelon 05-08-2024 Albumin [Mass/Vol] 3.9 g/dL Normal 3.9-4.9 [facility] Comment on above: Order Comment: Speci men Type: BLOOD SPECIMENOrdering Facility: [facility] Address: [address] [place] [address] Performed By: #### 2 4323-8, 05447-2, 2132-04 ####[facility] LABCLIA [id number] [place] [address] [place] ALP [Catalytic activity/Vol] 127 U/L High 34-123 [facility] Comment on above: Order Comment: Speci men Type: BLOOD SPECIMENOrdering Facility: [facility] Address: [address] [place] [address] Performed By: #### 2 4323-8, 57991-1, 2132-04 ####[facility] LABCLIA [id number] [place] [address] [place] ALT [Catalytic activity/Vol] 18 U/L Normal 7-38 [facility] Comment on above: Order Comment: Speci men Type: BLOOD SPECIMENOrdering Facility: [facility] Address: [address] [place] [address] Performed By: #### 2 4323-8, 22454-3, 2132-04 ####[facility] LABCLIA [id number] [place] [address] [place] Anion gap [Moles/Vol] 10 mmol/L Normal 8-15 [facility] Comment on above: Order Comment: Speci men Type: BLOOD SPECIMENOrdering Facility: [facility] Address: [address] [place] [address] Performed By: #### 2 4323-8, 00388-1, 2132-04 ####[facility] LABCLIA [id number] [place] [address] [place] AST [Catalytic activity/Vol] 13 U/L Normal 13-35 [facility] Comment on above: Order Comment: Speci men Type: BLOOD SPECIMENOrdering Facility: [facility] Address: [address] [place] [address] Performed By: #### 2 4323-8, 05738-4, 2132-04 ####[facility] LABCLIA [id number] [place] [address] [place] Bilirubin [Mass/Vol] 0.3 mg/dL Normal 0.2-1.3 [facility] Comment on above: Order Comment: Speci men Type: BLOOD SPECIMENOrdering Facility: [facility] Address: [address] [place] [address] Performed By: #### 2 4323-8, 02337-5, 2132-04 ####[facility] LABCLIA [id number] [place] [address] [place] Calcium [Mass/Vol] 9.3 mg/dL Normal 8.5-10.2 [facility] Comment on above: Order Comment: Speci men Type: BLOOD SPECIMENOrdering Facility: [facility] Address: [address] [place] [address] Performed By: #### 2 4323-8, 40721-7, 2132-04 ####[facility] LABCLIA [id number] [facility] [place] [id number] [place] Chloride [Moles/Vol] 108 mmol/L High 98-107 [facility] Comment on above: Order Comment: Speci men Type: BLOOD SPECIMENOrdering Facility: [facility] Address: [address] [place] [address] Performed By: #### 2 4323-8, 48322-4, 2132-04 ####[facility] LABCLIA [id number] [address] [address] [place] CO2 [Moles/Vol] 27 mmol/L Normal 22-30 [facility] Comment on above: Order Comment: Speci men Type: BLOOD SPECIMENOrdering Facility: [facility] Address: [address] [place] [address] Performed By: #### 2 4323-8, 38313-7, 2132-04 ####[facility] LABCLIA [id number] [place] [address] [place] Creatinine [Mass/Vol] 0.56 mg/dL Low 0.58-0.96 [facility] Comment on above: Order Comment: Speci men Type: BLOOD SPECIMENOrdering Facility: [facility] Address: [address] [place] [address] Performed By: #### 2 4323-8, 95207-2, 2132-04 ####[facility] LABCLIA [id number] [place] [address] [place] Creatinine and Glomerular filtration rate.predicted panel (S/P/Bld) 109 mL/min/1.73m??? Normal >=60 [facility] Comment on above: Order Comment: Speci men Type: BLOOD SPECIMENOrdering Facility: [facility] Address: [address] [place] [address] Result Comment: Adrienne mated Glomerular Filtration Rate (eGFR) is calculated using the 2020 CKD-EPI creatinine equation. This equation utilizes serum creatinine, sex, and age as parameters. The creatinine assay has traceable calibration to isotope dilution-mass spectrometry. Refer to KDIGO guidelines for clinical interpretation. In patients with unstable renal function, e.g. those with acute kidney injury, the eGFR may not accurately reflect actual GFR. Performed By: #### 2 4323-8, 12361-8, 2132-04 ####[facility] LABCLIA [id number] [address] [address] [place] Glucose [Mass/Vol] 106 mg/dL High 74-99 [facility] Comment on above: Order Comment: Speci men Type: BLOOD SPECIMENOrdering Facility: [facility] Address: [address] [place] [address] Result Comment: The [place] Diabetes [employer] (ADA) provides guidance for cutoff values for fasting glucose and random glucose. The ADA defines fasting as no caloric intake for at least 8 hours. Fasting plasma glucose results between 100 to 125 mg/dL indicate increased risk for diabetes (prediabetes). Fasting plasma glucose results greater than or equal to 126 mg/dL meet the criteria for diagnosis of diabetes. In the absence of unequivocal hyperglycemia, results should be confirmed by repeat testing. In a patient with classic symptoms of hyperglycemia or hyperglycemic crisis, random plasma glucose results greater than or equal to 200 mg/dL meet the criteria for diagnosis of diabetes. Reference: Standards of Medical Care in Diabetes 2016, [place] [employer]. Diabetes Care. 2016.39(Suppl 1). Performed By: #### 2 4323-8, 80841-5, 2132-04 ####[facility] LABCLIA [id number] [address] [address] [place] Potassium [Moles/Vol] 4.1 mmol/L Normal 3.7-5.1 [facility] Comment on above: Order Comment: Speci men Type: BLOOD SPECIMENOrdering Facility: [facility] Address: [address] [place] [address] Performed By: #### 2 4323-8, 38662-8, 2132-04 ####[facility] LABCLIA [id number] [place] [id number] [place] Protein [Mass/Vol] 6.7 g/dL Normal 6.3-8.0 [facility] Comment on above: Order Comment: Speci men Type: BLOOD SPECIMENOrdering Facility: [facility] Address: [address] [place], [place] [address] Performed By: #### 2 4323-8, 58406-0, 2132-04 ####[facility] LABIA [id number] [address] [address] [place] Sodium [Moles/Vol] 145 mmol/L High 136-144 [facility] Comment on above: Order Comment: Speci men Type: BLOOD SPECIMENOrdering Facility: [facility] Address: [address] [place] [address] Performed By: #### 2 4323-8, 16678-5, 2132-04 ####[facility] LABCLIA [id number] [place] [address] [place] Urea nitrogen [Mass/Vol] 11 mg/dL Normal 7-21 [facility] Comment on above: Order Comment: Speci men Type: BLOOD SPECIMENOrdering Facility: [facility] Address: [address] [place] [address] Performed By: #### 2 4323-8, 17755-8, 2132-04 ####[facility] LABIA [id number] [place] [address] [place] Iron and Iron binding capaci ty panelon 05-08-2024 Iron [Mass/Vol] 80 ug/dL Normal 41-186 [facility] Comment on above: Order Comment: Speci men Type: BLOOD SPECIMENOrdering Facility: [facility] Address: [address] [place] [address] Performed By: #### 2 4323-8, 82588-4, 9 ####[facility] LABIA [id number] [place] [address] [place] Iron binding capacity [Mass/Vol] 283 ug/dL Normal 232-386 [facility] Comment on above: Order Comment: Speci men Type: BLOOD SPECIMENOrdering Facility: [facility] Address: [address] [place] [address] Performed By: #### 2 4323-8, 26789-4, 2132-04 ####[facility] LABIA [id number] [place] [address] [place] Iron/TIBC [Molar ratio] 28.3 % Normal 15.0-57.0 C [facility] Comment on above: Order Comment: Speci men Type: BLOOD SPECIMENOrdering Facility: [facility] Address: [address] [place] [address] Performed By: #### 2 4323-8, 31338-1, 2132-04 ####[facility] [id number] [address] [place] VITAMIN D 25 HYDROXYon 05-08 25-hydroxyvitamin D3 [Mass/Vol] 28.3 ng/mL Low 31.0 - 80.0 ng/mL [facility] Comment on above: Classification of 25 [place] Vitamin D status: Deficiency/Insufficiency: < or = 30 ng/ml. Sufficiency/Optimal Levels: 31-80 ng/mL Toxicity: > 100 ng/mL. Test performed by chemiluminescent immunoassay. Vit B12 [facility] 024 Cobalamin (Vitamin B12) [Mass/Vol] 347 pg/mL Normal 232-1245 [facility] Comment on above: Order Comment: Speci men Type: BLOOD SPECIMENOrdering Facility: [facility] Address: [address] [place] [address] Performed By: #### 2 4323-8, 48114-8, 2132-04 ####[facility] [id number] [place] [id number] [facility] [place] CNOVon 02-14-2024 CNOV Office Visit ([facility] ) BRYAN CRUZ ([id number]) 1970 F [place] Date Time Provider Department 02/14/24 8:40 AM SAL MALLOY [facility] During your visit today, we recorded the following information about you: Pulse Blood pressure Weight Height 66/minute 130/62 97.9 kg 1.524 m Sal Malloy MD 02/14/2024 10:16 AM Addendum Bryan is a 53 year old who presents for an annual gynecologic exam with complaints, heavy bleeding. Endometrial biopsy 2021 , benign inactive endometrium. Patient experienced 2 days of vaginal bleeding, notes irregular light spotting the past year. History of fibroids. Postmenopausal: Yes since age 43 HRT use: No. 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 History Comments: Sexual Activity: No sexual activity data on record; No partner data on record Contraception: No contraception data on record PAST MEDICAL HISTORY Diagnosis Date Cocaine use reports relapsed in 2019 but now sober again Depression Fibroid Multiple sclerosis (HCC) Smoking Stroke (cerebrum) (HCC) 2016 had trouble walking PAST SURGICAL HISTORY Procedure Laterality Date >=3 FAMILY HISTORY Problem Relation Age of Onset Hypertension Mother Diabetes Mother COPD Father Hypertension Sister Diabetes Sister SOCIAL HISTORY Social History Tobacco Use Smoking status: Some Days Types: Cigarettes Smokeless tobacco: Never Tobacco comments: Not daily; 3-4 per day when she does smoke. Vaping Use Vaping Use: Never used Substance Use Topics Alcohol use: Not Currently Drug use: Yes Types: Cocaine, Marijuana Comment: Marijuana as needed. history of cocaine states relapsed in 2019 none since then REVIEW OF SYSTEMS Abdomen: No abdominal pain, nausea, vomiting, diarrhea, or constipation. No bloating, early satiety, indigestion, or increased flatulence. Bladder: No dysuria, gross hematuria, urinary frequency, urinary urgency, or incontinence Breast: No breast lumps, nipple d/c, overlying skin changes, redness or skin retraction Allergies and current medication updated:Yes EXAM: BP 130/62 Pulse 66 Ht 5' 0 (1.52m) Wt 215 lb 13.3 oz (97.9kg) LMP 04/28/2020 BMI 42.15 kg/(m2). GENERAL: pleasant, americanfemale in no apparent distress HEENT: Normocephalic, atraumatic, mucus membranes moist, and no lesions NECK: Supple, full range of motion, no adenopathy, and thyroid normal DERMATOLOGY: Normal, without lesions, non-icteric, and non-hirsute BREAST: soft, non-tender, symmetric, no dominant mass, normal nipple-areolar complex, no lymphadenopathy, and no nipple discharge CHEST: Normal inspiratory effort ABDOMEN: soft, non-tender, and no masses PELVIC: external genitalia normal, normal Bartholin's glands, urethra, Lowman's glands, no vulvar lesions, no cervical lesions, good vaginal support, physiologic discharge present, normal appearing perineal body and perianal region BIMANUAL: no adnexal masses, non-tender, and enlarged uterus 16-18 week size RECTOVAGINAL: deferred. NEURO: alert and oriented x3,exam grossly non-focal EXTREMITIES: normal ASSESSMENT/PLAN: 1) Health maintenance: Pap done with HPV. Mammogram up to date Referred to [facility] for hysterectomy consult Symptomatic Fibroids 2) Follow up one year or sooner as needed Adenike Cline MA was present as melter assistant for the entirety of the exam. Sal Malloy MD Referring Provider: SELF [200] Allergies As of Date: 02/14/2024 Noted Allergy Reaction NSAIDS (NON-STEROIDAL ANTI-INFLAM* 0 4 - Hives TRAMADOL 12/23/2019 4 - Hives Date Reviewed: 02/14/2024 Reviewed by: Sal Malloy MD - Fully Assessed Reason for Visit: Uterine Fibroids [287] Vaginal Bleeding [203] Primary Visit Diagnosis:Encounter for Papanicolaou smear for cervical cancer screening [Z12.4] Other Visit Diagnoses:Encounter for gynecological examination (general) (routine) without abnormal findings [Z01.419] PMB (postmenopausal bleeding) [N95.0] Encounter for screening mammogram for malignant neoplasm of breast [Z12.31] Order(s):PAP TEST [MEP1506] Order #: [id number]. #:[id number] ELIZABETH SCREENING [[id number]] Order #: [id number] FUTURE CONSULT TO MINIMALLY INVASIVE GYNECOLOGIC SURGERY [[id number]] Order #: [id number]: 1 FUTURE Prescriptions as of 02/14/2024 - ozanimod (ZEPOSIA) 0.92 mg capsule Take 1 capsule by mouth once daily. Obtain blood work for further refills. - pregabalin (LYRICA) 300 mg capsule Take 1 capsule by mouth (more content not included)... Normal [facility] HIGH RISK HUMAN PAPILLOMA KEIKO (HPV), PCR FOR DETECTION AND GENOTYPINGon 02-14-2024 HPV 16 Ag Ql (Unsp spec) Not detected Normal Not detected [facility] Comment on above: Order Comment: Speci men Type: FLUID SPECIMENOrdering Facility: [facility] Address: [address] [place] [address] Performed By: #### L [id number], HPVHRT ####[facility] LABCLIA [id number] [place] [address] [place] HPV 18 Ag Ql (Unsp spec) Not detected Normal Not detected [facility] Comment on above: Order Comment: Speci men Type: FLUID SPECIMENOrdering Facility: [facility] Address: [address] [place] [address] Performed By: #### L [id number], HPVHRT ####[facility] LABCLIA [id number] [place] [address] [place] HPV 31+33+35+39+45+51+52+56 +58+59+66+68 DNA CRISTIAN+probe Ql (Cvx) Not detected Normal Not detected [facility] Comment on above: Order Comment: Speci men Type: FLUID SPECIMENOrdering Facility: [facility] Address: [address] [place] [address] Result Comment: High Risk HPV Other Type includes HPV types 31, 33, 35, 39, 45, 51, 52, 56, 58, 59, 66 and 68. Performed By: #### L [id number], HPVHRT ####[facility] LABCLIA [id number] [place] [address] [place] PAP TESTon 02-14-2024 ADEQUACY Satisfactory for interpretation. Normal [facility] Comment on above: Order Comment: Speci men Type: FLUID SPECIMENOrdering Facility: [facility] Address: [address] [place] [address] Performed By: #### L [id number], HPVHRT ####[facility] LABCLIA [id number] [place] [address] [place] CASE REPORT Normal [facility] Comment on above: Order Comment: Speci men Type: FLUID SPECIMENOrdering Facility: [facility] Address: [address] [place] [address] Result Comment: Gyne cologic Cytology Report Case: [id number] Authorizing Provider: Sal Malloy, Collected: 02/14/2024 09:28 AM Ordering Location: OB/Gynecology Received: 02/14/2024 02:19 PM First Screen: Dionne, Gricel, CT, ASCP Specimen: Pap Test, ThinPrep, Cervix Performed By: #### L [id number], HPVHRT ####[facility] LABCLIA [id number] [place] [address] [place] CLINICAL HISTORY, CYTOLOGY, WOOD BARKER Routine Exam Normal [facility] Comment on above: Order Comment: Speci men Type: FLUID SPECIMENOrdering Facility: [facility] Address: [address] [place] [address] Result Comment: Post Menopausal Performed By: #### L [id number], HPVHRT ####[facility] LABCLIA [id number] [place] [address] [place] CYTOLOGY PAP OTHER INT Predominance of coccobacilli consistent with shift in vaginal wyatt Normal [facility] Comment on above: Order Comment: Speci men Type: FLUID SPECIMENOrdering Facility: [facility] Address: [address] [place] [address] Performed By: #### L [id number], HPVHRT ####[facility] LABCLIA [id number] [place] [address] [place] FINAL PERFORMING LAB [facility] Comment on above: Order Comment: Speci men Type: FLUID SPECIMENOrdering Facility: [facility] Address: [address] [place] [address] Result Comment: Tech nical component, fashion journalist screening performed at [facility], [address] [place] [address] [place] [address] CLIA# [id number] Diagnostic interpretation performed at [facility], [address] [place], [place] [id number] CLIA# [id number] Respiratory Clinician: Anil Gage M.D. Performed By: #### L [id number], HPVHRT ####[facility] LABCLIA [id number] [place] [address] [place] HPV REFLEX Yes HPV Normal [facility] Comment on above: Order Comment: Speci men Type: FLUID SPECIMENOrdering Facility: [facility] Address: [address] [place] [address] Performed By: #### L [id number], HPVHRT ####[facility] LABCLIA [id number] [place] [address] [place] INTERPRETATION, CYTOLOGY, WOOD BARKER Normal [facility] Comment on above: Order Comment: Speci men Type: FLUID SPECIMENOrdering Facility: [facility] Address: [address] [place] [address] Result Comment: Nega tive for intraepithelial lesion or malignancy. Performed By: #### L [id number], HPVHRT ####[facility] LABCLIA [id number] [place] [id number] [place] LMP Post Menopausal Normal [facility] Comment on above: Order Comment: Speci men Type: FLUID SPECIMENOrdering Facility: [facility] Address: [address] [place] [address] Performed By: #### L [id number], HPVHRT ####[facility] LABCLIA [id number] [address] [place] PAP DISCLAIMER COMMENT The Pap Smear is a screening test for cervical cancer. False negative results occur with all screening tests, emphasizing the need for rescreening at recommended intervals, and clinical correlation. Normal [facility] Comment on above: Order Comment: Speci men Type: FLUID SPECIMENOrdering Facility: [facility] Address: [address] [place] [address] Performed By: #### L [id number], HPVHRT ####[facility] LABCLIA [id number] [address] [place] PAP WEATHERIZATION INSTALLER COMMENT This specimen has been analyzed by the ThinPrep Imaging System, an automated imaging and review system, which assists the laboratory in evaluating cells on ThinPrep Pap tests. Following automated imaging, selected leger from every slide are reviewed by a fashion journalist. Normal [facility] Comment on above: Order Comment: Speci men Type: FLUID SPECIMENOrdering Facility: [facility] Address: [address] [place] [address] Performed By: #### L [id number], HPVHRT ####[facility] LABIA [id number] [address] [place] CNOVon 01-31-2024 CNOV Office Visit ([facility] ) BRYAN CRUZ ([id number]) 1970 F [place] Date Time Provider Department 01/31/24 10:15 AM RAYMOND KEMP [facility] During your visit today, we recorded the following information about you: Pulse Blood pressure Weight 74/minute 160/77 94.1 kg Raymond Kemp APRN.COMPENSATION CONSULTING MANAGER 01/31/2024 10:56 AM Signed [facility] FOLLOWUP/ESTABLISHED PATIENT VISIT PRINCIPAL NEUROLOGIC DIAGNOSIS: Multiple Sclerosis DISEASE SUMMARY Date of onset: 03/2019 Date of diagnosis of MS: 03/2020 Disease course at onset: Relapsing-Remitting Current disease course: Relapsing-Remitting Previous disease therapies: - IVMP x 3 08/2023 (worsening LUE weakness and numbness) Current disease therapy: Zeposia (Jul 2020-Present) Most recent MRI brain: 08/28/23 ([facility]), 06/17/2021 Most recent MRI cervical spine: 08/28/23 ([facility]) Most recent MRI thoracic spine: 08/28/23 ([facility]) CSF: NA JCV serology result and date: 03/2020 negative Brief Disease History: - Mar 2019 bilateral leg weakness, urinary retention - Jul 2019 hyperacute onset L arm numbness and subtle weakness(dropping items) occurring when lifting a duffle bag - Jul 2019-February 2020 noticed balance difficulty CHIEF COMPLAINT: Follow-up on MS disease modifying therapy Usual treating team: Stephan/ Pedro The patient is unaccompanied. The patient was last seen 09/20/23, currently taking Zeposia. Since the patient's last visit the patient reports overall feeling stable. Issues with current therapy: Tolerating medication without side effects. INTERVAL HISTORY: Right hand middle finger started locking up Not necessarily painful, has been hppening for about 1.5 months Denies missed doses of Zeposia, tolerates it well Denies vision changes Denies illness or infection Continues to be sober, stopped counting days but has been many months REVIEW OF SYSTEMS: Mood: continues to work with counselor, continues on Cymbalta Spasticity:denies Bladder: Stable Bowel: constipation at times, uses Miralax Pain: continues on Lyrica Fatigue: significant, but does not nap Sleep: poor sleep, is restless Memory/Concentration: continues to have memory concerns, did not do cognitive therapy yet Neuro-QoL Functions (higher=better functioning) Flowsheet Row Office Visit from 07/19/[address] [facility] Office Visit from 04/18/[address] [facility] Office Visit from 10/27/[address] [facility] Upper Extremity Domain T Score 44.53 42.12 42.58 Lower Extremity Domain T Score 40.35 34.04 36.94 Cognitive Function Domain T Score 48.64 46.37 52.55 Positive Affect Well Being T Score -- -- -- Ability To Participate In Social Roles T Score 44.12 33.38 37.21 Satisfaction With Social Roles T Score 41.34 36.98 40.61 Neuro-QoL Symptoms (higher=worse symptoms) Flowsheet [facility] Office Visit from 07/19/[address] [facility] Office Visit from 04/18/[address] [facility] Office Visit from 10/27/[address] [facility] Sleep Domain T Score 57.7 61.86 67.68 Fatigue Domain T Score 56.21 58.38 50.45 Anxiety Domain T Score 48.72 48.87 56.09 Depression Domain T Score 46.25 47.97 55.43 Stigma Domain T Score 36.56 51.87 44.69 Emotional Behavior Dyscontrol T Score -- -- -- has a past medical history of Cocaine use, Depression, Multiple sclerosis ([facility]), Smoking, and Stroke (cerebrum) ([facility]). has a current medication list which includes the following prescription(s): zeposia, cyanocobalamin, famotidine, nicotine, nicotine polacrilex, biotene dry mouth oral rinse, lidocaine, acetaminophen, lidocaine hcl, pregabalin, iv contrast, hydrocortisone, nystatin, atorvastatin, baclofen, biotene dry mouth oral rinse, duloxetine, duloxetine, and ergocalciferol (vitamin d2). EXAM: BP 160/77 Pulse 74 Wt 94.1 kg (207 lb 7.3 oz) LMP 04/28/2020 (Within Years) BMI 40.20 kg/m? MSPT Results Flowsheet [facility] Office Visit from 07/19/[address] [facility] Office Visit from 04/18/[address] [facility] Office Visit from 10/27/[address] [facility] Processing Speed Total Number Correct 45 46 40 Processing Speed Z score 0.42 0.51 -0.19 Dominant hand -- -- -- MDT Left Hand Time 24.54 27.5 -- MDT Right Hand Time 28.79 23.69 -- Walking Speed Test (25 feet) -- 8.56 -- General Appearance: well appearing, in no acute distress Mental status evaluation during the interview and examination showed normal level of consciousness, orientation, language, memory, praxis, and higher intellectual function Affect: over active, normal Extraocular movements: full, without EVIN Facial movements: Intact bilaterally Speech: normal Muscle strength (#/5): Right Left Upper Extremity: Deltoids 5 5 Biceps 5 5 Triceps 5 5 Admeasurer 5 5 Dorsal interossei 5 5 Lower extremity: Iliopsoas 5 5- Quadriceps 5 5 Hamstrings 5 5 Tibialis anterior 5 5 Gastrocnemius 5 5 Coordination: Upper extremity dexterity and rapid movements: v (more content not included)... Normal [facility] CNPNon 09-28-2023 [facility] BRYAN CRUZ ([id number]) 1970 F [place] Date Time Provider Department 09/28/23 KURTIS MCGILL [facility] During your visit today, we recorded the following information about you: Allergies As of Date: 09/28/2023 Noted Allergy Reaction NSAIDS (NON-STEROIDAL ANTI-INFLAM* 0 4 - Hives TRAMADOL 12/23/2019 4 - Hives Date Reviewed: 09/20/2023 Reviewed by: Raymond Kemp APRN.[facility] - Fully Assessed Prescriptions as of 09/28/2023 - hydrocortisone 0.5 % cream APPLY TO AFFECTED AREA TWO TIMES A DAY FOR 7 DAYS. - cyanocobalamin (VITAMIN B-12) 1,000 mcg tab Take 1 tablet by mouth once daily. - DULoxetine (CYMBALTA) 30 mg capsule Take 1 capsule by mouth daily at bedtime for 7 days, THEN 2 capsules daily at bedtime. - DULoxetine (CYMBALTA) 60 mg capsule Take 1 capsule by mouth daily at bedtime. Patient should start on October 04, 2023. - famotidine (PEPCID) 20 mg tablet Take 20 mg by mouth two times a day. - atorvastatin (LIPITOR) 20 mg tablet Take 1 tablet by mouth once daily. - nicotine (NICODERM) 14 mg/24 hr Apply 1 Patch as directed every 24 hours. - nicotine polacrilex (NICORETTE) 2 mg gum Take 1 Each by mouth every hour as needed. Max 20 pieces in 1 day. - iv contrast (will be provided with radiology test) MRI TSP Inject, intravenously, once for 1 dose. No IV access, insert saline lock prior to the beginning of sedation, infusion, injection of imaging exam. Discontinue saline lock post exam. If Pt. has a central line or IVAD, may access for administration according to line specific nursing protocol. Once exam is complete flush line and de-access according to line specific nursing protocol in the MR contrast administration guidelines link. - pregabalin (LYRICA) 300 mg capsule Take 1 capsule by mouth two times a day for 120 days. - ergocalciferol 50,000 unit capsule (VITAMIN D2, DRISDOL) Take 1 capsule by mouth one time a week. - baclofen 20 mg tablet Take 1 tablet (20mg) by mouth in the morning and afternoon and 2 tablets (40 mg) by mouth in the evening - saliva substitute combo no.9 (BIOTENE DRY MOUTH ORAL RINSE) mwsh Use 15 mL as instructed three times a day as needed. - polyethylene glycol 3350 (MIRALAX) 17 gram/dose powder Take 17 g by mouth two times a day. Dissolve dose in 4 - 8 ounces of liquid and take as directed. - lidocaine (LIDODERM) 5 % Apply 1 Patch as directed once daily. to affected area. Remove patch after 12 hours. - acetaminophen (TYLENOL EXTRA STRENGTH) 500 mg tablet Take 2 tablets by mouth three times a day as needed for pain. - ozanimod (ZEPOSIA) 0.92 mg capsule Take 1 capsule by mouth once daily - lidocaine HCL 4 % ptmd Apply 1 Patch to affected area once daily. Problem List As Of Date 09/28/2023 Noted Resolved Morbid obesity with BMI of 40.0-44.9, adult (HC*02/17/2020 Multiple sclerosis (HCC) [G35] 03/30/2020 Suicidal ideation [R45.851] 05/08/2022 07/19/2023 Major depressive disorder [F32.9] 05/08/2022 Leukocytosis [D72.829] 05/08/2022 07/19/2023 Hyperlipidemia [E78.5] 05/08/2022 History of cocaine abuse (HCC) [F14.11] 05/08/2022 Current every day smoker [F17.200] 05/08/2022 Stroke (cerebrum) (HCC) [I63.9] 08/17/2022 Vitamin D deficiency [E55.9] 07/19/2023 Encounter Status:Closed by JOSÉ MANUEL MENDEZ on 09/28/[address] [facility] CNOVon 09-20-2023 [facility] Office Visit ([facility] ) BRYAN CRUZ ([id number]) 1970 F [place] Date Time Provider Department 09/20/23 2:30 PM RAYMOND KEMP NEMSYUNG During your visit today, we recorded the following information about you: Pulse Blood pressure Weight 70/minute 128/83 98.3 kg Raymond Kemp APRN.COMPENSATION CONSULTING MANAGER 09/20/2023 2:55 PM [facility] FOLLOWUP/ESTABLISHED PATIENT VISIT PRINCIPAL NEUROLOGIC DIAGNOSIS: Multiple Sclerosis DISEASE SUMMARY Date of onset: 03/2019 Date of diagnosis of MS: 03/2020 Disease course at onset: Relapsing-Remitting Current disease course: Relapsing-Remitting Previous disease therapies: - IVMP x 3 08/2023 (worsening LUE weakness and numbness) Current disease therapy: Zeposia (Jul 2020-Present) Most recent MRI brain: 08/13/23 ([facility]), 06/17/2021 Most recent MRI cervical spine: 08/28/23 ([facility]) Most recent MRI thoracic spine: 08/28/23 ([facility]) CSF: NA JCV serology result and date: 03/2020 negative Brief Disease History: - Mar 2019 bilateral leg weakness, urinary retention - Jul 2019 hyperacute onset L arm numbness and subtle weakness(dropping items) occurring when lifting a duffle bag - Jul 2019-February 2020 noticed balance difficulty CHIEF COMPLAINT: paperwork Usual treating team: David/ Isabel-> Stephan/ Pedro The patient is unaccompanied. The patient was last seen 08/30/23, currently taking Zeposia. Since the patient's last visit the patient reports overall feeling stable. Issues with current therapy: Tolerating medication without side effects. INTERVAL HISTORY: Feels good Made this appointment as she needs paperwork signed agreeing with her need for a live in aide Neuro-QoL Functions (higher=better functioning) Flowsheet [facility] Office Visit from 07/19/[address] [facility] Office Visit from 04/18/[address] [facility] Office Visit from 10/27/[address] [facility] Upper Extremity Domain T Score 44.53 42.12 42.58 Lower Extremity Domain T Score 40.35 34.04 36.94 Cognitive Function Domain T Score 48.64 46.37 52.55 Positive Affect Well Being T Score -- -- -- Ability To Participate In Social Roles T Score 44.12 33.38 37.21 Satisfaction With Social Roles T Score 41.34 36.98 40.61 Neuro-QoL Symptoms (higher=worse symptoms) Flowsheet [facility] Office Visit from 07/19/[address] [facility] Office Visit from 04/18/[address] [facility] Office Visit from 10/27/[address] [facility] Sleep Domain T Score 57.7 61.86 67.68 Fatigue Domain T Score 56.21 58.38 50.45 Anxiety Domain T Score 48.72 48.87 56.09 Depression Domain T Score 46.25 47.97 55.43 Stigma Domain T Score 36.56 51.87 44.69 Emotional Behavior Dyscontrol T Score -- -- -- has a past medical history of Cocaine use, Depression, Multiple sclerosis (HCC), Smoking, and Stroke (cerebrum) (HCC). has a current medication list which includes the following prescription(s): cyanocobalamin, duloxetine, [START ON 10/04/2023] duloxetine, famotidine, atorvastatin, nicotine, nicotine polacrilex, pregabalin, ergocalciferol (vitamin d2), baclofen, biotene dry mouth oral rinse, polyethylene glycol 3350, lidocaine, acetaminophen, zeposia, lidocaine hcl, nystatin, hydrocortisone, and iv contrast. EXAM: BP 128/83 Pulse 70 Wt 98.3 kg (216 lb 11.4 oz) LMP 04/28/2020 (Within Years) BMI 41.99 kg/m? Multiple Sclerosis Performance Test Flowsheet Row Office Visit from 07/19/[address] [facility] Office Visit from 04/18/[address] [facility] Processing Speed Total Number Correct 45 46 Low-contrast letter acuity test-2.5 percent opacity -- 24 Low-contrast letter acuity test-100 percent opacity -- 57 Dominant hand -- -- MDT Left Hand Time 24.54 27.5 MDT Right Hand Time 28.79 23.69 Walking Speed Test (25 feet) -- 8.56 General Appearance: well appearing, in no acute distress Mental status evaluation during the interview and examination showed normal level of consciousness, orientation, language, memory, praxis, and higher intellectual function Affect: Normal RESULTS: CBC + Diff Component Value Date WBC 7.71 07/19/2023 HB 13.3 07/19/2023 HCT 43.7 07/19/2023 PLT 329 07/19/2023 ABSLYMPH 0.85 (L) 07/19/2023 Vitamin D Component Value Date VITD25 23.2 (L) 07/19/2023 CMP Component Value Date AST 15 08/30/2023 GLUC 93 08/30/2023 BUN 14 08/30/2023 CREAT 0.61 08/30/2023 NA 142 08/30/2023 K 4.2 08/30/2023 CHLOR 105 08/30/2023 ALT 25 08/30/2023 Hemoglobin A1C Date Value Ref Range Status 08/30/2023 6.3 (H) 4.3 - 5.6 % Final Comment: [place] [employer] guidelines indicate that patients with HgbA1c in the range 5.7-6.4% are at increased risk for development of diabetes, and intervention by lifestyle modification may be beneficial. HgbA1c greater or equal to 6.5% is considered diagnostic of diabetes. TSH Date Value Ref Range Status 08/30/2023 1.810 0.270 - 4.200 mIU/L Final Vitamin B12 Date Value Ref Range S (more content not included)... Normal [facility] Jose 09-17-2023 [place] Telephone ([facility]) BRYAN CRUZ ([id number]) 1970 F [place] Date Time Provider Department 09/17/23 JAHAIRA DENIS During your visit today, we recorded the following information about you: Jahaira Denis, CATALYST IMPREGNATOR.COMPENSATION CONSULTING MANAGER 09/17/2023 12:44 PM Signed Please call pt, she has an appointment tomorrow with me for a surgical consult for fibroids, she needs to see a MD. Also I don't see a recent pelvic US in her chart, can we confirm she has actually been diagnosed with fibroids please Doreen Jiménez RN 09/17/2023 12:55 PM Signed Patient name and verified. Patient states she would like to reschedule appt due to transportation issues. Last US was 07/2021, nothing more recent. 08/02/2021 6:06 PM - [facility] Results Indication Follow-up on uterine fibroids . Follow-up on pelvic pain, Abnormal uterine bleeding Impression Bulky anteverted uterus measuring 190 mm x 97 mm x 123 mm and containing multiple large fibroids. Endometrium is obscured by fibroids. Neither ovary is visualized. No adnexal masses were observed. There is no free fluid visualized in the peritoneal cavity. Kidneys and ureters were not visualized on today's study. Recommendations Consider endometrial sampling and additional imaging as clinically indicated. Order pended if appropriate. Routing to provider for review. SAARH Fields Jennifer L, MARINO.[facility] 09/17/2023 12:58 PM Signed Agree she needs more recent US, due to large size of fibroids AND her uterus she will likely need to see [facility], have her hold off on rescheduling anything until her US results are back. Thanks Doreen Christina RN 09/17/2023 1:07 PM Signed Left message on voicemail to return the call to the office for message below. SARAH Fields Holly, RN 09/19/2023 10:08 AM Signed Left message on voicemail to return the call to the office for message below. SARAH Fields Rachel, RN 09/20/2023 11:37 AM Signed Call placed to patient. LVM for patient to call [phone], push option 3 to speak to a nurse. SARAH Lyons Holly, RN 09/21/2023 12:47 PM Signed Called patient, verified name and , message below given. Patient verbalizes understanding, denies further questions/concerns. Patient will call back regarding US order, may want faxed to [facility]. Doreen Jiménez RN Allergies As of Date: 09/17/2023 Noted Allergy Reaction NSAIDS (NON-STEROIDAL ANTI-INFLAM* 0 4 - Hives TRAMADOL 12/23/2019 4 - Hives Date Reviewed: 08/30/2023 Reviewed by: Magali Mcgowan MA - Fully Assessed Primary Visit Diagnosis:Fibroid [D21.9] Order(s):PELVIC US [facility] [[id number]] Order #: [id number]: 1 FUTURE Prescriptions as of 09/21/2023 - nystatin (MYCOSTATIN) powder Apply 1 application to affected area two times a day for 7 days. - hydrocortisone 0.5 % cream APPLY TO AFFECTED AREA TWO TIMES A DAY FOR 7 DAYS. - cyanocobalamin (VITAMIN B-12) 1,000 mcg tab Take 1 tablet by mouth once daily. - DULoxetine (CYMBALTA) 30 mg capsule Take 1 capsule by mouth daily at bedtime for 7 days, THEN 2 capsules daily at bedtime. - DULoxetine (CYMBALTA) 60 mg capsule Take 1 capsule by mouth daily at bedtime. Patient should start on October 04, 2023. - famotidine (PEPCID) 20 mg tablet Take 20 mg by mouth two times a day. - atorvastatin (LIPITOR) 20 mg tablet Take 1 tablet by mouth once daily. - nicotine (NICODERM) 14 mg/24 hr Apply 1 Patch as directed every 24 hours. - nicotine polacrilex (NICORETTE) 2 mg gum Take 1 Each by mouth every hour as needed. Max 20 pieces in 1 day. - iv contrast (will be provided with radiology test) MRI TSP Inject, intravenously, once for 1 dose. No IV access, insert saline lock prior to the beginning of sedation, infusion, injection of imaging exam. Discontinue saline lock post exam. If Pt. has a central line or IVAD, may access for administration according to line specific nursing protocol. Once exam is complete flush line and de-access according to line specific nursing protocol in the MR contrast administration guidelines link. - pregabalin (LYRICA) 300 mg capsule Take 1 capsule by mouth two times a day for 120 days. - ergocalciferol 50,000 unit capsule (VITAMIN D2, DRISDOL) Take 1 capsule by mouth one time a week. - baclofen 20 mg tablet Take 1 tablet (20mg) by mouth in the morning and afternoon and 2 tablets (40 mg) by mouth in the evening - saliva substitute combo no.9 (BIOTENE DRY MOUTH ORAL RINSE) mwsh Use 15 mL as instructed three times a day as needed. - polyethylene glycol 3350 (MIRALAX) 17 gram/dose powder Take 17 g by mouth two times a day. Dissolve dose in 4 - 8 ounces of liquid and take as directed. - lidocaine (LIDODERM) 5 % Apply 1 Patch as directed once daily. to affected area. Remove patch after 12 hours. - acetaminophen (TYLENOL EXTRA S (more content not included)... Normal [facility] MR BRAIN W AND WO CONTRAST ( ROUTINE)on 08-28-2023 MR BRAIN W AND WO CONTRAST (ROUTINE) EXAMINATION: MR BRAIN W AND WO CONTRAST (ROUTINE) CLINICAL HISTORY: Muliple Sclerosis COMPARISONS: None TECHNIQUE: Multiplanar multisequence images of the brain were obtained before and after IV administration of contrast. Diffusion perfusion imaging was obtained. BRAIN MRI FINDINGS: There are no extra-axial collections. There is no evidence of hemorrhage. The susceptibility images do not demonstrate evidence of hemosiderin deposition within the brain parenchyma or the leptomeninges. There is preservation of the davenport-white matter differentiation. There are foci of T2/FLAIR hyperintensity in subcortical white matter and involving the corpus callosum measuring up to 10 mm in greatest diameter. There is signal dropout on T1 images without enhancement. 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 There is no associated edema or mass effect the sulci and ventricles are within normal limits without evidence of hydrocephalus. The midline structures are intact, the corpus callosum is within normal limits. The region of the pineal gland and the sella turcica are unremarkable. There are no space-occupying lesions in the posterior fossa. The basilar cisterns are patent. The craniocervical junction is unremarkable. The visualized portions of the orbits are within normal limits, the globes are intact. The visualized portions of the paranasal sinuses are within normal limits. The calvarium and soft tissues are unremarkable. IMPRESSION: There is no enhancement after contrast administration. There are foci of T2/FLAIR hyperintensity in the subcortical white matter and also in the right and left periventricular white matter involving the corpus callosum. 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 ELECTRONICALLY SIGNED BY: Juan Antonio Fang MD Normal Not Available MR CERVICAL SPINE W AND WO C [facility] 08-28-2023 MR CERVICAL SPINE W AND WO CONTRAST EXAM: MR CERVICAL SPINE W AND WO CONTRAST DATE: 08/28/2023 11:55 AM CLINICAL HISTORY: Multiple Sclerosis. TECHNIQUE: Multiplanar multisequence images of cervical spine were obtained without IV contrast. COMPARISON: Cervical spine MRI from number 07/2021 FINDINGS: There is no acute fracture or subluxation. There is no loss of vertebral body height. The spine is in anatomic alignment, there is preservation of the lordotic curvature of the cervical spine. There is disc desiccation and mild intervertebral deceasing at every level. The bone marrow signal is within normal limits. The cord is normal in course and caliber. There is an 8 mm craniocaudal length area of demyelination in the cord at C2-3 which has been present since the previous study. There are no new areas of signal abnormality. There is no abnormal enhancement. The visualized portions of the posterior fossa are within normal limits There is no prevertebral soft tissue swelling. C2-C3: There is no disc herniation, central canal narrowing or neural foraminal narrowing. C3-C4: There is a 2 mm disc bulge compressing the thecal sac and abutting the cord with mild narrowing of the central canal. There is mild bilateral facet and uncovertebral joint hypertrophy producing mild bilateral neural foraminal narrowing. C4-C5: There is a less than 2 mm disc bulge flattening the thecal sac and abutting the cord with mild narrowing of the central canal. There is mild bilateral facet and uncovertebral joint hypertrophy with moderate bilateral neural foraminal narrowing. C5-C6: There is no disc herniation or central canal narrowing. There is mild bilateral facet and uncovertebral joint hypertrophy and mild bilateral neural foraminal narrowing. C6-C7: There is a less than 2 mm disc bulge flattening the thecal sac but not upon the cord without central canal narrowing. There is mild bilateral facet and uncovertebral joint hypertrophy with mild bilateral neural foraminal narrowing. C7-T1: There is no disc herniation, central canal narrowing or neural foraminal narrowing. IMPRESSION: There is a persistent area of demyelination in the left cord at C2-3 unchanged since the prior study. There are no new areas of signal abnormality. There is no abnormal enhancement after contrast. There is multilevel spondylosis of the cervical spine. ELECTRONICALLY SIGNED BY: Juan Antonio Fang MD Normal Not Available MR THORACIC SPINE W AND WO C [facility] 08-28-2023 MR THORACIC SPINE W AND WO CONTRAST IMPRESSION: THERE ARE NO ACUTE CHANGES. THE STUDY IS LIMITED DUE TO MOTION ARTIFACT. THE CORD IS NORMAL IN COURSE AND CALIBER WITHOUT SIGNAL ABNORMALITY OR ABNORMAL ENHANCEMENT. EXAM: MR THORACIC SPINE W AND WO CONTRAST DATE: 08/28/2023 12:42 PM TECHNIQUE: Multiplanar multisequence MR images of the thoracic spine were obtained before and after administration of mL of MultiHance (gadobenate dimeglumine) IV contrast. CLINICAL HISTORY: Multiple Sclerosis. COMPARISON: None available. FINDINGS: Limited due to motion. There is no acute fracture or subluxation. There is no loss of vertebral body height. The spine is in anatomic alignment, there is preservation of the kyphotic curvature of the thoracic spine. There is mild intervertebral disc fissuring at each level. The bone marrow signal is within normal limits. The spinal cord is normal in course and caliber without areas of signal abnormality. There is no abnormal enhancement. There is no evidence of central canal narrowing. The paraspinal structures and soft tissues are within normal limits. ELECTRONICALLY SIGNED BY: Juan Antonio Fang MD Normal Not Available APTTon 08-13-2023 aPTT Coag (Bld) [Time] 28.8 s Normal 26.8-34.8 [facility] Comment on above: Result Comment: IV Heparin Therapy Range: 62.0-94.0 Performed By: #### P TT, PT #### [facility] [address] [place] [address] Physician Pediatrician: Tate Antonio MD aPTT Coag (Bld) [Time] 28.8 s JENNIFER N [facility] Comment on above: IV Heparin Therapy Range: 62.0-94.0 CBC with Auto Differentialon 08-13-2023 Basophils (Bld) [#/Vol] B ON [facility] Basophils/100 WBC (Bld) 0 % 0 - 2 % B ON [facility] Eosinophils (Bld) [#/Vol] 0.32 10*3/uL [facility] Eosinophils/100 WBC (Bld) 4 % 1 - 4 % [facility] Erythrocyte distribution width (RBC) [Ratio] 12.4 % 11.8 - 14.4 % [facility] Hematocrit (Bld) [Volume fraction] 42.8 % 36.3 - 47.1 % [facility] Hemoglobin (Bld) [Mass/Vol] 13.4 g/dL 11.9 - 15.1 g/dL [facility] Immature granulocytes (Bld) [#/Vol] 0.03 10*3/uL [facility] Immature granulocytes/100 WBC (Bld) 0 % 0 [facility] Interpretation and review of laboratory results Abnormal [facility] Lymphocytes/100 WBC (Bld) 11 % Low 24 - 43 % [facility] Lymphocytes/100 WBC (Bld) 0.94 % Low [facility] MCH (RBC) [Entitic mass] 30.5 pg 25.2 - 33.5 pg [facility] MCHC (RBC) [Mass/Vol] 31.3 g/dL 28.4 - 34.8 g/dL [facility] MCV (RBC) [Entitic vol] 97.3 fL 82.6 - 102.9 fL [facility] Monocytes/100 WBC (Bld) 10 % 3 - 12 % B ON [facility] Monocytes/100 WBC (Bld) 0.82 % B ON [facility] Neutrophils/100 WBC (Bld) 75 % High 36 - 65 % [facility] Nucleated RBC/100 WBC (Bld) [Ratio] 0.0 % 0.0 per 100 WBC [facility] Platelet mean volume (Bld) [Entitic vol] 10.4 fL 8.1 - 13.5 fL [facility] Platelets (Bld) [#/Vol] 370 10*3/uL [facility] RBC (Bld) [#/Vol] 4.40 10*6/uL 3.95 - 5.1 1 m/uL [facility] Segmented neutrophils/100 WBC (Bld) 6.44 % [facility] WBC other (Bld) [#/Vol] 8.6 B ON [facility] CBC with Diffon 08-13-2023 Abs. Basophil <0.03 Normal 0.00-0.20 [facility] Comment on above: Performed By: #### T BRYANNA, CDP, MG, CP #### [facility] [address] [place] [address] [place] [id number] Physician Pediatrician: Tate Antonio MD Abs.Imm.Granulocyte 0.03 k/uL Normal 0.00-0.30 [facility] Comment on above: Performed By: #### T BRYANNA, CDP, MG, CP #### [facility] Lab [address] [place] [address] Dr. [place], [facility]83 Physician Pediatrician: Tate Antonio MD Abs.Neutrophil (Seg) 6.44 k/uL Normal 1.50-8.10 [facility] Comment on above: Performed By: #### T BRYANNA, CDP, MG, CP #### [facility] [address] [place] [address] [place] [address] Physician Pediatrician: Tate Antonio MD Basophils/100 WBC (Bld) 0 % Normal 0-2 M [facility] Comment on above: Performed By: #### T ROPI, CDP, MG, CP #### [address] [place], [facility]83 Physician Pediatrician: Tate Antonio MD Eosinophils (Bld) [#/Vol] 0.32 10*3/uL Normal 0.00-0.44 [facility] Comment on above: Performed By: #### T ROPI, CDP, MG, CP #### [address] [place] [id number] Physician Pediatrician: Tate Antonio MD Eosinophils/100 WBC (Bld) 4 % Normal 1-4 [facility] Comment on above: Performed By: #### T ROPI, CDP, MG, CP #### [address] [place] [address] Physician Pediatrician: Tate Antonio MD Erythrocyte distribution width (RBC) [Ratio] 12.4 % Normal 11.8-14.4 [facility] Comment on above: Performed By: #### T ROPI, CDP, MG, CP #### [address] [place] [id number] Physician Pediatrician: Tate Antonio MD Hematocrit (Bld) [Volume fraction] 42.8 % Normal 36.3-47.1 [facility] Comment on above: Performed By: #### T ROPI, CDP, MG, CP #### [address] Zapata, [place] [address] Physician Pediatrician: Tate Antonio MD Hemoglobin (Bld) [Mass/Vol] 13.4 g/dL Normal 11.9-15.1 [facility] Comment on above: Performed By: #### T ROPI, CDP, MG, CP #### [address] [place] [address] Physician Pediatrician: Tate Antonio MD Immature granulocytes/100 WBC (Bld) 0 % Normal 0 [facility] Comment on above: Performed By: #### T ROPI, CDP, MG, CP #### [facility] [address] [place], [place] [id number] Physician Pediatrician: Tate Antonio MD Lymphocytes (Bld) [#/Vol] 0.94 10*3/uL Low 1.10-3.70 [facility] Comment on above: Performed By: #### T ROPI, CDP, MG, CP #### [address] [place], [place] [address] Physician Pediatrician: Tate Antonio MD Lymphocytes/100 WBC (Bld) 11 % Low 24-43 [facility] Comment on above: Performed By: #### T BRYANNA, CDP, MG, CP #### [address] [place] [id number] Physician Pediatrician: Tate Antonio MD MCH (RBC) [Entitic mass] 30.5 pg Normal 25.2-33.5 [facility] Comment on above: Performed By: #### T ROPJuan, CDP, MG, CP #### [address] [place], [facility]83 Physician Pediatrician: Tate Antonio MD MCHC (RBC) [Mass/Vol] 31.3 g/dL Normal 28.4-34.8 [facility] Comment on above: Performed By: #### T ROPJuan, CDP, MG, CP #### [address] [place], [facility]83 Physician Pediatrician: Tate Antonio MD MCV (RBC) [Entitic vol] 97.3 fL Normal 82.6-102.9 M [facility] Comment on above: Performed By: #### T ROPJuan, CDP, MG, CP #### [address] [place], [place] [id number] Physician Pediatrician: Tate Antonio MD Monocytes (Bld) [#/Vol] 0.82 10*3/uL Normal 0.10-1.20 [facility] Comment on above: Performed By: #### T ROPI, CDP, MG, CP #### [facility] [address] [place] [address] Dr. [place], [facility]83 Physician Pediatrician: Tate Antonio MD Monocytes/100 WBC (Bld) 10 % Normal 3-12 M [facility] Comment on above: Performed By: #### T ROPI, CDP, MG, CP #### [address] [place], [facility]83 Physician Pediatrician: Tate Antonio MD Neutrophil (Seg) 75 % High 36-65 [facility] Comment on above: Performed By: #### T ROPI, CDP, MG, CP #### [address] [place], [facility]83 Physician Pediatrician: Tate Antonio MD NRBC Automated 0.0 per 100 WBC Normal 0.0 [facility] Comment on above: Performed By: #### T ROPI, CDP, MG, CP #### [address] [place]apata, [facility]83 Physician Pediatrician: Tate Antonio MD Platelet mean volume (Bld) [Entitic vol] 10.4 fL Normal 8.1-13.5 [facility] Comment on above: Performed By: #### T ROPI, CDP, MG, CP #### [address] [place], [place] [address] Physician Pediatrician: Tate Antonio MD Platelets (Bld) [#/Vol] 370 10*3/uL Normal 138-453 [facility] Comment on above: Performed By: #### T ROPI, CDP, MG, CP #### [address] [place], [facility]83 Physician Pediatrician: Tate Antonio MD RBC (Bld) [#/Vol] 4.40 10*6/uL Normal 3.95-5.11 [facility] Comment on above: Performed By: #### T ROPI, CDP, MG, CP #### [facility] [address] [place] [address] Physician Pediatrician: Tate Antonio MD WBC (Bld) [#/Vol] 8.6 10*3/uL Normal 3.5-11.3 [facility] Comment on above: Performed By: #### T EMILIANA GOULD, MG, CP #### [facility] [address] [place] [address] Physician Pediatrician: Tate Antonio [facility] Albumin [Mass/Vol] 3.9 g/dL 3.5 - 5.2 g/dL [facility] Albumin/Globulin [Mass ratio] 1.5 {ratio} 1.0 - 2.5 [facility] ALP [Catalytic activity/Vol] 122 U/L High 35 - 104 U/L [facility] ALT [Catalytic activity/Vol] 18 U/L 5 - 33 U/L [facility] Anion gap [Moles/Vol] 8 mmol/L Low 9 - 17 mmol/L [facility] AST [Catalytic activity/Vol] 10 U/L NINF - 32 U/L [facility] Bilirubin [Mass/Vol] 0.2 mg/dL Low 0.3 - 1 .2 mg/dL [facility] Calcium [Mass/Vol] 9.0 mg/dL 8.6 - 10. 4 mg/dL [facility] Chloride [Moles/Vol] 105 mmol/L 98 - 10 7 mmol/L [facility] CO2 [Moles/Vol] 29 mmol/L 20 - 31 mmol/L [facility] Creatinine [Mass/Vol] 0.5 mg/dL 0.5 - 0.9 mg/dL [facility] GFR/1.73 sq M.predicted MDRD (S/P/Bld) [Vol rate/Area] - PINF [facility] Comment on above: These results are not intended for use in patients <18 years of age. eGFR results are calculated without a race factor using the 2020 CKD-EPI equation. Careful clinical correlation is recommended, particularly when comparing to results calculated using previous equations. The CKD-EPI equation is less accurate in patients with extremes of muscle mass, extra-renal metabolism of creatine, excessive creatine ingestion, or following therapy that affects renal tubular secretion. Glucose [Mass/Vol] 107 mg/dL High 70 - 99 mg/dL [facility] Interpretation and review of laboratory results Abnormal [facility] [employer] Potassium [Moles/Vol] 4.0 mmol/L 3.7 - 5.3 mmol/L [facility] Protein [Mass/Vol] 6.5 g/dL 6.4 - 8.3 g/dL [facility] Sodium [Moles/Vol] 142 mmol/L 135 - 144 mmol/L [facility] Urea nitrogen [Mass/Vol] 11 mg/dL 6 - 20 mg/dL [facility] [employer] Urea nitrogen/Creatinine [Mass ratio] 22 mg/mg High 9 - [address] [facility] [address] [facility] CONTRAST[facility] 2023 CT HEAD WO CONTRAST ADDENDUM: Findings were communicated to Dr. Cantu by the CORE team on 08/13/2023 at 1:13 pm. Electronically Signed by: PRERNA ZUNIGA on SunAug 13, 2023 1:32:23 PM EST EXAMINATION: CT OF THE HEAD WITHOUT CONTRAST 08/13/2023 12:51 pm TECHNIQUE: CT of the head was performed without the administration of intravenous contrast. Automated exposure control, iterative reconstruction, and/or weight based adjustment of the mA/kV was utilized to reduce the radiation dose to as low as reasonably achievable. COMPARISON: None. HISTORY: ORDERING SYSTEM PROVIDED HISTORY: left sided weakness; left facial numbness; hx of MS TECHNOLOGIST PROVIDED HISTORY: left sided weakness; left facial numbness; hx of MS Decision Support Exception - unselect if not a suspected or confirmed emergency medical condition->Emergency Medical Condition ([place]) Initial evaluation. FINDINGS: BRAIN/VENTRICLES: There is no acute intracranial hemorrhage, mass effect or midline shift. No abnormal extra-axial fluid collection. The davenport-white differentiation is maintained without evidence of an acute infarct. There is no evidence of hydrocephalus. ORBITS: The visualized portion of the orbits demonstrate no acute abnormality. SINUSES: Mucosal thickening is seen of the right maxillary sinus. The mastoid air cells demonstrate no acute abnormality. SOFT TISSUES/SKULL: No acute abnormality of the visualized skull or soft tissues. IMPRESSION: No acute intracranial abnormality. These results were sent to the CORE Team on 08/13/2023 at 1:07 pm to be communicated to the referring/covering health care provider/office. Interpreted by: Prerna Zuniga MD Chou, Brian C, MD Signed by: Prerna Zuniga MD 08/13/23 Edited Result - FINAL Normal [facility] CT Head WO contraston 2023 Addendum by Prerna Zuniga MD on 08/13/2023 1:32 PM EST ADDENDUM: Findings were communicated to Dr. Cantu by the CORE team on 08/13/2023 at 1:13 pm. [facility] No acute intracrania l abnormality. These results were sent to the CORE Team on 08/13/2023 at 1:07 pm to be communicated to the referring/covering health care provider/office. [facility] EXAMINATION: CT OF THE HEAD WITHOUT CONTRAST 08/13/2023 12:51 pm TECHNIQUE: CT of the head was performed without the administration of intravenous contrast. Automated exposure control, iterative reconstruction, and/or weight based adjustment of the mA/kV was utilized to reduce the radiation dose to as low as reasonably achievable. COMPARISON: None. HISTORY: ORDERING SYSTEM PROVIDED HISTORY: left sided weakness; left facial numbness; hx of MS TECHNOLOGIST PROVIDED HISTORY: left sided weakness; left facial numbness; hx of MS Decision Support Exception - unselect if not a suspected or confirmed emergency medical condition->Emergency Medical Condition ([place]) Initial evaluation. FINDINGS: BRAIN/VENTRICLES: There is no acute intracranial hemorrhage, mass effect or midline shift. No abnormal extra-axial fluid collection. The davenport-white differentiation is maintained without evidence of an acute infarct. There is no evidence of hydrocephalus. ORBITS: The visualized portion of the orbits demonstrate no acute abnormality. SINUSES: Mucosal thickening is seen of the right maxillary sinus. The mastoid air cells demonstrate no acute abnormality. SOFT TISSUES/SKULL: No acute abnormality of the visualized skull or soft tissues. [facility] Prerna Zuniga MD - 08/13/2023 EXAMINATION: CT OF THE HEAD WITHOUT CONTRAST 08/13/2023 12:51 pm TECHNIQUE: CT of the head was performed without the administration of intravenous contrast. Automated exposure control, iterative reconstruction, and/or weight based adjustment of the mA/kV was utilized to reduce the radiation dose to as low as reasonably achievable. COMPARISON: None. HISTORY: ORDERING SYSTEM PROVIDED HISTORY: left sided weakness; left facial numbness; hx of MS TECHNOLOGIST PROVIDED HISTORY: left sided weakness; left facial numbness; hx of MS Decision Support Exception - unselect if not a suspected or confirmed emergency medical condition->Emergency Medical Condition ([place]) Initial evaluation. FINDINGS: BRAIN/VENTRICLES: There is no acute intracranial hemorrhage, mass effect or midline shift. No abnormal extra-axial fluid collection. The davenport-white differentiation is maintained without evidence of an acute infarct. There is no evidence of hydrocephalus. ORBITS: The visualized portion of the orbits demonstrate no acute abnormality. SINUSES: Mucosal thickening is seen of the right maxillary sinus. The mastoid air cells demonstrate no acute abnormality. SOFT TISSUES/SKULL: No acute abnormality of the visualized skull or soft tissues. IMPRESSION: No acute intracranial abnormality. These results were sent to the CORE Team on 08/13/2023 at 1:07 pm to be communicated to the referring/covering health care provider/office. [facility] Radiology Study observation (narrative) [facility] CT Head WO contrastOrdered B y: Prerna Zuniga on 08-13-2023 [facility] Work Phone: CTA HEAD NECK W CONTRASTon 0 08-13-2023 CTA HEAD NECK W CONTRAST EXAMINATION: CTA OF THE HEAD AND NECK WITH CONTRAST 08/13/2023 12:50 pm: TECHNIQUE: CTA of the head and neck was performed with the administration of intravenous contrast. Multiplanar reformatted images are provided for review. MIP images are provided for review. Stenosis of the internal carotid arteries measured using NASCET criteria. Automated exposure control, iterative reconstruction, and/or weight based adjustment of the mA/kV was utilized to reduce the radiation dose to as low as reasonably achievable. 3D reconstructed images were performed on a separate workstation and provided for review. This scan was analyzed using [email or web address] contact LVO. Identification of suspected findings is not for diagnostic use beyond notification. Viz LVO is limited to analysis of imaging data and should not be used in-lieu of full patient evaluation or relied upon to make or confirm diagnosis. COMPARISON: None. HISTORY: ORDERING SYSTEM PROVIDED HISTORY: left arm and leg weakness; left facial numbness; hx of MS; TECHNOLOGIST PROVIDED HISTORY: left arm and leg weakness; left facial numbness; hx of MS; Decision Support Exception - unselect if not a suspected or confirmed emergency medical condition->Emergency Medical Condition ([place]) Initial evaluation. FINDINGS: CTA NECK: Evaluation is partially limited due to beam attenuation due to patient's shoulders. AORTIC ARCH/ARCH VESSELS: There appears to be a normal 3 vessel arch configuration. No convincing evidence of a significant stenosis of the innominate or visualized subclavian arteries. The distal left subclavian artery is obscured due to in flowing contrast. CAROTID ARTERIES: No convincing flow limiting stenosis of the common carotid arteries. No flow limiting stenosis of the internal carotid arteries by NASCET criteria. No evidence of dissection. VERTEBRAL ARTERIES: The origin of the vertebral arteries bilaterally are somewhat obscured. No convincing flow limiting stenosis or dissection of the visualized vertebral arteries. SOFT TISSUES: No focal consolidation within the visualized lung apices. No acute abnormality within the visualized superior mediastinum. BONES: No acute osseous abnormality. CTA HEAD: ANTERIOR CIRCULATION: No significant stenosis of the intracranial internal carotid, anterior cerebral, or middle cerebral arteries. No aneurysm. POSTERIOR CIRCULATION: There is a diminutive caliber of the basilar and vertebral arteries predominately due to a persistent supply of both posterior cerebral arteries. No significant stenosis of the vertebral, basilar, or posterior cerebral arteries. No aneurysm. OTHER: No dural venous sinus thrombosis on this non-dedicated study. BRAIN: No mass effect or midline shift. IMPRESSION: 1. No convincing evidence of a flow limiting stenosis of the visualized cervical carotid/vertebral arteries. 2. No significant stenosis or large vessel occlusion of the [id number]. Interpreted by: Prerna Zuniga MD Signed by: Prerna Zuniga MD 08/13/23 Final result Normal [facility] CTA Head vessels and Neck ve ssels W contrast Carol 08-13-2023 1. No convincing evidence of a flow limiting stenosis of the visualized cervical carotid/vertebral arteries. 2. No significant stenosis or large vessel occlusion of the [id number]. [facility] CONSOL[facility] EXAMINATION: CTA OF THE HEAD AND NECK WITH CONTRAST 08/13/2023 12:50 pm: TECHNIQUE: CTA of the head and neck was performed with the administration of intravenous contrast. Multiplanar reformatted images are provided for review. MIP images are provided for review. Stenosis of the internal carotid arteries measured using NASCET criteria. Automated exposure control, iterative reconstruction, and/or weight based adjustment of the mA/kV was utilized to reduce the radiation dose to as low as reasonably achievable. 3D reconstructed images were performed on a separate workstation and provided for review. This scan was analyzed using [email or web address] contact LVO. Identification of suspected findings is not for diagnostic use beyond notification. Viz LVO is limited to analysis of imaging data and should not be used in-lieu of full patient evaluation or relied upon to make or confirm diagnosis. COMPARISON: None. HISTORY: ORDERING SYSTEM PROVIDED HISTORY: left arm and leg weakness; left facial numbness; hx of MS; TECHNOLOGIST PROVIDED HISTORY: left arm and leg weakness; left facial numbness; hx of MS; Decision Support Exception - unselect if not a suspected or confirmed emergency medical condition->Emergency Medical Condition ([place]) Initial evaluation. FINDINGS: CTA NECK: Evaluation is partially limited due to beam attenuation due to patient's shoulders. AORTIC ARCH/ARCH VESSELS: There appears to be a normal 3 vessel arch configuration. No convincing evidence of a significant stenosis of the innominate or visualized subclavian arteries. The distal left subclavian artery is obscured due to in flowing contrast. CAROTID ARTERIES: No convincing flow limiting stenosis of the common carotid arteries. No flow limiting stenosis of the internal carotid arteries by NASCET criteria. No evidence of dissection. VERTEBRAL ARTERIES: The origin of the vertebral arteries bilaterally are somewhat obscured. No convincing flow limiting stenosis or dissection of the visualized vertebral arteries. SOFT TISSUES: No focal consolidation within the visualized lung apices. No acute abnormality within the visualized superior mediastinum. BONES: No acute osseous abnormality. CTA HEAD: ANTERIOR CIRCULATION: No significant stenosis of the intracranial internal carotid, anterior cerebral, or middle cerebral arteries. No aneurysm. POSTERIOR CIRCULATION: There is a diminutive caliber of the basilar and vertebral arteries predominately due to a persistent supply of both posterior cerebral arteries. No significant stenosis of the vertebral, basilar, or posterior cerebral arteries. No aneurysm. OTHER: No dural venous sinus thrombosis on this non-dedicated study. BRAIN: No mass effect or midline shift. [facility] Prerna Zuniga MD - 08/13/2023 EXAMINATION: CTA OF THE HEAD AND NECK WITH CONTRAST 08/13/2023 12:50 pm: TECHNIQUE: CTA of the head and neck was performed with the administration of intravenous contrast. Multiplanar reformatted images are provided for review. MIP images are provided for review. Stenosis of the internal carotid arteries measured using NASCET criteria. Automated exposure control, iterative reconstruction, and/or weight based adjustment of the mA/kV was utilized to reduce the radiation dose to as low as reasonably achievable. 3D reconstructed images were performed on a separate workstation and provided for review. This scan was analyzed using [email or web address] contact LVO. Identification of suspected findings is not for diagnostic use beyond notification. Viz LVO is limited to analysis of imaging data and should not be used in-lieu of full patient evaluation or relied upon to make or confirm diagnosis. COMPARISON: None. HISTORY: ORDERING SYSTEM PROVIDED HISTORY: left arm and leg weakness; left facial numbness; hx of MS; TECHNOLOGIST PROVIDED HISTORY: left arm and leg weakness; left facial numbness; hx of MS; Decision Support Exception - unselect if not a suspected or confirmed emergency medical condition->Emergency Medical Condition ([place]) Initial evaluation. FINDINGS: CTA NECK: Evaluation is partially limited due to beam attenuation due to patient's shoulders. AORTIC ARCH/ARCH VESSELS: There appears to be a normal 3 vessel arch configuration. No convincing evidence of a significant stenosis of the innominate or visualized subclavian arteries. The distal left subclavian artery is obscured due to in flowing contrast. CAROTID ARTERIES: No convincing flow limiting stenosis of the common carotid arteries. No flow limiting stenosis of the internal carotid arteries by NASCET criteria. No evidence of dissection. VERTEBRAL ARTERIES: The origin of the vertebral arteries bilaterally are somewhat obscured. No convincing flow limiting stenosis or dissection of the visualized vertebral arteries. SOFT TISSUES: No focal consolidation within the visualized lung apices. No acute abnormality within the visualized superior mediastinum. BONES: No acute osseous abnormality. CTA HEAD: ANTERIOR CIRCULATION: No significant stenosis of the intracranial internal carotid, anterior cerebral, or middle cerebral arteries. No aneurysm. POSTERIOR CIRCULATION: There is a diminutive caliber of the basilar and vertebral arteries predominately due to a persistent supply of both posterior cerebral arteries. No significant stenosis of the vertebral, basilar, or posterior cerebral arteries. No aneurysm. OTHER: No dural venous sinus thrombosis on this non-dedicated study. BRAIN: No mass effect or midline shift. IMPRESSION: 1. No convincing evidence of a flow limiting stenosis of the visualized cervical carotid/vertebral arteries. 2. No significant stenosis or large vessel occlusion of the [id number]. [facility] Radiology Study observation (narrative) [facility] Comp Metabolic Profon 2023 Albumin [Mass/Vol] 3.9 g/dL Normal 3.5-5.2 [facility] Comment on above: Performed By: #### T ROPI, CDP, MG, CP ####[address] [place] [address] Lab Director: Tate Antonio MD Albumin/Glob Ratio 1.5 Normal 1.0-2.5 [facility] Comment on above: Performed By: #### T ROPI, CDP, MG, CP ####[address] [place] [address] Lab Director: Tate Antonio MD Alkaline Phos 122 U/L High 35-104 [facility] Comment on above: Performed By: #### T ROPI, CDP, MG, CP ####[address] [place] [address] Lab Director: Tate Antonio MD ALT [Catalytic activity/Vol] 18 U/L Normal 5-33 [facility] Comment on above: Performed By: #### T ROPI, CDP, MG, CP ####[address] [place] [address] Lab Director: Tate Antonio MD Anion gap [Moles/Vol] 8 mmol/L Low 9-17 [facility] Comment on above: Performed By: #### T ROPI, CDP, MG, CP ####[address] , [place] [id number] Lab Director: Tate Antonio MD AST [Catalytic activity/Vol] 10 U/L Normal <32 [facility] Comment on above: Performed By: #### T ROPI, CDP, MG, CP ####[address] , [place] [id number] [facility] Director: Tate Antonio MD Bilirubin [Mass/Vol] 0.2 mg/dL Low 0.3-1.2 [facility] Comment on above: Performed By: #### T ROPI, CDP, MG, CP ####[address] , [place] [id number] [facility] Director: Tate Antonio MD BUN/CRE Ratio 22 High 9-20 [facility] Comment on above: Performed By: #### T ROPI, CDP, MG, CP ####[address] , [place] [id number] lab Director: Tate Antonio MD Calcium [Mass/Vol] 9.0 mg/dL Normal 8.6-10.4 [facility] Comment on above: Performed By: #### T ROPI, CDP, MG, CP ####[address] , [place] [id number] Lab Director: Tate Antonio MD Chloride [Moles/Vol] 105 mmol/L Normal 98-107 [facility] Comment on above: Performed By: #### T ROPI, CDP, MG, CP ####[address] , [place] 9[address]83 Lab Director: Tate Antonio MD CO2 [Moles/Vol] 29 mmol/L Normal 20-31 [facility] Comment on above: Performed By: #### T ROPI, CDP, MG, CP ####[address] , [place] [id number] lab Director: Tate Antonio MD Creatinine [Mass/Vol] 0.5 mg/dL Normal 0.5-0.9 [facility] Comment on above: Performed By: #### T ROPI, CDP, MG, CP ####[address] [place] [address] Lab Director: Tate Antonio MD GFR/1.73 sq M.predicted among non-blacks MDRD (S/P/Bld) [Vol rate/Area] mL/min/{1.73_m2} Normal >60 [facility] Comment on above: Result Comment: These results are not intended for use in patients <18 years of age. eGFR results are calculated without a race factor using the 2020 CKD-EPI equation. Careful clinical correlation is recommended, particularly when comparing to results calculated using previous equations. The CKD-EPI equation is less accurate in patients with extremes of muscle mass, extra-renal metabolism of creatine, excessive creatine ingestion, or following therapy that affects renal tubular secretion. Performed By: #### T ROPJuan, CDP, MG, CP ####[address] [place] [address] Lab Director: Tate Antonio MD Glucose [Mass/Vol] 107 mg/dL High 70-99 [facility] Comment on above: Performed By: #### T BRYANNA CDP, MG, CP ####[address] [place] [address] lab Director: Tate Antonio MD Potassium [Moles/Vol] 4.0 mmol/L Normal 3.7-5.3 [facility] Comment on above: Performed By: #### T BRYANNA, CDP, MG, CP ####[address] , [place] [id number] lab Director: Tate Antonio MD Protein [Mass/Vol] 6.5 g/dL Normal 6.4-8.3 [facility] Comment on above: Performed By: #### T ROPI, CDP, MG, CP ####[address] [place] [address] lab Director: Tate Antonio MD Sodium [Moles/Vol] 142 mmol/L Normal 135-144 [facility] Comment on above: Performed By: #### T ROPI, CDP, MG, CP ####[facility] , [facility]83 [facility] Director: Tate Antonio MD Urea nitrogen [Mass/Vol] 11 mg/dL Normal 6-20 [facility] Comment on above: Performed By: #### T ROPI, CDP, MG, CP ####[address] , [facility]83 [facility] Director: Tate Antonio MD Drug Scr, Abuse, Uron 2023 Amphetamine(s),Ur Negative Normal NEG [facility] Comment on above: Result Comment: (Positive cutoff 1000 ng/mL) Performed By: #### D AU #### [address] [place] [address] Physician Pediatrician: Tate Antonio MD Barbiturate(s),Ur Negative Normal NEG [facility] Comment on above: Result Comment: (Positive cutoff 200 ng/mL) Performed By: #### D AU #### [address] [place] [address] Physician Pediatrician: Tate Antonio MD Benzodiazepine(s) Negative Normal NEG [facility] Comment on above: Result Comment: (Positive cutoff 200 ng/mL) Performed By: #### D AU #### [address] [place], [facility]83 Physician Pediatrician: Tate Antonio MD Buprenorphrine, Ur Negative Normal NEG [facility] Comment on above: Result Comment: (Positive cutoff 5 ng/ml) Performed By: #### D AU #### [address] [place], [facility]83 Physician Pediatrician: Tate Antonio MD Cannabinoid(s),Ur Negative Normal NEG [facility] Comment on above: Result Comment: (Positive cutoff 50 ng/mL) Performed By: #### D AU #### [facility] [address] [place] [address] [place] [place], [place] [id number] Physician Pediatrician: Tate Antonio MD Cocaine Metabolite Negative Normal [facility] Comment on above: Result Comment: (Positive cutoff 300 ng/mL) Performed By: #### D AU #### [facility] [address] [place] [address] [place] [place], [place] [id number] Physician Pediatrician: Tate Antonio MD Fentanyl, Urine Negative Normal [facility] Comment on above: Result Comment: (Positive cutoff 5 ng/ml) Performed By: #### D AU #### [address] [place], [place] [id number] Physician Pediatrician: Tate Antonio MD Interpretive Info Assay provides medical screening only. The absence of expected drug(s) and/or Normal [facility] Comment on above: Result Comment: meta bolite(s) may indicate diluted or adulterated urine, limitations of testing or timing of collection. Testing for legal purposes should be confirmed by another method. To request confirmation of test result, please call the lab within 7 days of sample submission. Performed By: #### D AU #### [address] [place], [place] [id number] Physician Pediatrician: Tate Antonio MD Methadone Ql (U) Negative Normal [facility] Comment on above: Result Comment: (Positive cutoff 300 ng/mL) Performed By: #### D AU #### [facility] [address] [place] [address] [place] [place], [place] [phone] Physician Pediatrician: Tate Antonio MD Opiate(s), Ur Negative Normal NEG [facility] Comment on above: Result Comment: (Positive cutoff 300 ng/mL) Performed By: #### D AU #### [address] [place], [place] [address]83 Physician Pediatrician: Tate Antonio MD Oxycodone, Urine Negative Normal NEG [facility] Comment on above: Result Comment: (Positive cutoff 100 ng/mL) Performed By: #### D AU #### [facility] [address] [place] [address] Physician Pediatrician: Tate Antonio MD Phencyclidine, Ur Negative Normal NEG [facility] Comment on above: Result Comment: (Positive cutoff 25 ng/mL) Performed By: #### D AU #### [facility] [address] [place] [address] Physician Pediatrician: Tate Antonio MD Drug screen multi urineon Amphetamines Ql (U) Negative NEGATIVE [facility] Comment on above: (Positive cutoff 1000 ng/mL) Barbiturates Screen Ql (U) Negative NEGATIVE [facility] Comment on above: (Positive cutoff 200 ng/mL) Benzodiazepines Ql (U) Negative NEGATIVE [facility] Comment on above: (Positive cutoff 200 ng/mL) Buprenorphine Ql (U) Negative NEGATIVE [facility] Comment on above: (Positive cutoff 5 ng/ml) Cannabinoids Screen Ql (U) Negative NEGATIVE [facility] Comment on above: (Positive cutoff 50 ng/mL) Cocaine Ql (U) Negative NEGATIVE [facility] Comment on above: (Positive cutoff 300 ng/mL) fentaNYL Ql (U) Negative NEGATIVE [facility] Comment on above: (Positive cutoff 5 ng/ml) Methadone Ql (U) Negative NEGATIVE [facility] Comment on above: (Positive cutoff 300 ng/mL) Opiates Screen Ql (U) Negative NEGATIVE [facility] Comment on above: (Positive cutoff 300 ng/mL) oxyCODONE Ql (U) Negative NEGATIVE [facility] Comment on above: (Positive cutoff 100 ng/mL) Phencyclidine Ql (U) Negative NEGATIVE [facility] Comment on above: (Positive cutoff 25 ng/mL) Test Information Assay provides medical screening only. The absence of expected drug(s) and/or metabolite(s) may indicate diluted or adulterated urine, limitations of testing or timing of collection. [facility] Comment on above: Testing for legal pu rposes should be confirmed by another method. To request confirmation of test result, please call the lab within 7 days of sample submission. [facility] MR Brain WO and W contrast I Von 08-13-2023 FLAIR signal abnormalities in the periventricular white matter consistent with patient's history of a demyelinating process. No evidence for active or acute demyelination. [facility] CONSOLIDATED EXAMINATION: MRI OF THE BRAIN WITHOUT AND WITH CONTRAST 08/13/2023 2:59 pm TECHNIQUE: Multiplanar multisequence MRI of the head/brain was performed without and with the administration of intravenous contrast. COMPARISON: None. HISTORY: ORDERING SYSTEM PROVIDED HISTORY: left arm/leg weakness; hx of MS TECHNOLOGIST PROVIDED HISTORY: left arm/leg weakness; hx of MS Decision Support Exception - unselect if not a suspected or confirmed emergency medical condition->Emergency Medical Condition (MA) FINDINGS: INTRACRANIAL STRUCTURES/VENTRICLES : The sellar and suprasellar structures, optic chiasm, corpus callosum, pineal gland, tectum, and midline brainstem structures are unremarkable. The craniocervical junction is unremarkable. There is no acute hemorrhage, mass effect, or midline shift. There is satisfactory overall davenport-white matter differentiation. There are FLAIR signal abnormalities in the periventricular white matter. The ventricular structures are symmetric and unremarkable. The infratentorial structures including the cerebellopontine angles and internal auditory canals are unremarkable. There is no abnormal restricted diffusion. There is no abnormal blooming artifact on susceptibility weighted imaging. No abnormal postcontrast enhancement. ORBITS: The visualized portion of the orbits demonstrate no acute abnormality. SINUSES: There is chronic sinusitis involving the right maxillary sinus. The mastoid air cells are normally aerated. BONES/SOFT TISSUES: The bone marrow signal intensity appears normal. The soft tissues demonstrate no acute abnormality. [facility] Mark Nova MD - 08/13/2023 EXAMINATION: MRI OF THE BRAIN WITHOUT AND WITH CONTRAST 08/13/2023 2:59 pm TECHNIQUE: Multiplanar multisequence MRI of the head/brain was performed without and with the administration of intravenous contrast. COMPARISON: None. HISTORY: ORDERING SYSTEM PROVIDED HISTORY: left arm/leg weakness; hx of MS TECHNOLOGIST PROVIDED HISTORY: left arm/leg weakness; hx of MS Decision Support Exception - unselect if not a suspected or confirmed emergency medical condition->Emergency Medical Condition (MA) FINDINGS: INTRACRANIAL STRUCTURES/VENTRICLES : The sellar and suprasellar structures, optic chiasm, corpus callosum, pineal gland, tectum, and midline brainstem structures are unremarkable. The craniocervical junction is unremarkable. There is no acute hemorrhage, mass effect, or midline shift. There is satisfactory overall davenport-white matter differentiation. There are FLAIR signal abnormalities in the periventricular white matter. The ventricular structures are symmetric and unremarkable. The infratentorial structures including the cerebellopontine angles and internal auditory canals are unremarkable. There is no abnormal restricted diffusion. There is no abnormal blooming artifact on susceptibility weighted imaging. No abnormal postcontrast enhancement. ORBITS: The visualized portion of the orbits demonstrate no acute abnormality. SINUSES: There is chronic sinusitis involving the right maxillary sinus. The mastoid air cells are normally aerated. BONES/SOFT TISSUES: The bone marrow signal intensity appears normal. The soft tissues demonstrate no acute abnormality. IMPRESSION: FLAIR signal abnormalities in the periventricular white matter consistent with patient's history of a demyelinating process. No evidence for active or acute demyelination. [facility] Radiology Study observation (narrative) [facility] MR Brain WO and W contrast I VOrdered By: Mark Nova on 08-13-2023 [facility] Work Phone: MRI BRAIN W WO CONTRASTon MRI BRAIN W WO CONTRAST EXAMINATION: MRI OF THE BRAIN WITHOUT AND WITH CONTRAST 08/13/2023 2:59 pm TECHNIQUE: Multiplanar multisequence MRI of the head/brain was performed without and with the administration of intravenous contrast. COMPARISON: None. HISTORY: ORDERING SYSTEM PROVIDED HISTORY: left arm/leg weakness; hx of MS TECHNOLOGIST PROVIDED HISTORY: left arm/leg weakness; hx of MS Decision Support Exception - unselect if not a suspected or confirmed emergency medical condition->Emergency Medical Condition (MA) FINDINGS: INTRACRANIAL STRUCTURES/VENTRICLES : The sellar and suprasellar structures, optic chiasm, corpus callosum, pineal gland, tectum, and midline brainstem structures are unremarkable. The craniocervical junction is unremarkable. There is no acute hemorrhage, mass effect, or midline shift. There is satisfactory overall davenport-white matter differentiation. There are FLAIR signal abnormalities in the periventricular white matter. The ventricular structures are symmetric and unremarkable. The infratentorial structures including the cerebellopontine angles and internal auditory canals are unremarkable. There is no abnormal restricted diffusion. There is no abnormal blooming artifact on susceptibility weighted imaging. No abnormal postcontrast enhancement. ORBITS: The visualized portion of the orbits demonstrate no acute abnormality. SINUSES: There is chronic sinusitis involving the right maxillary sinus. The mastoid air cells are normally aerated. BONES/SOFT TISSUES: The bone marrow signal intensity appears normal. The soft tissues demonstrate no acute abnormality. IMPRESSION: FLAIR signal abnormalities in the periventricular white matter consistent with patient's history of a demyelinating process. No evidence for active or acute demyelination. Interpreted by: Mark Nova MD Signed by: Mark Nova MD 08/13/23 Final result Normal [facility] Magnesiumon 08-13-2023 Magnesium [Mass/Vol] 1.8 mg/dL Normal 1.6-2.6 [facility] Comment on above: Performed By: #### T ROPI, CDP, MG, CP ####[facility] [place] [address] Lab Director: Tate Antonio MD Magnesium [Mass/Vol] 1.8 mg/dL 1.6 - 2 .6 mg/dL [facility] Microscopic Urinalysison Epithelial cells LM.HPF (Urine sed) [#/Area] 2 TO 5 [facility] RBC LM.HPF (Urine sed) [#/Area] 2 TO 5 [facility] WBC LM.HPF (Urine sed) [#/Area] 0 TO 2 [facility] No Panel Informationon 08-13 [facility] PTon 08-13-2023 INR Coag (PPP) [Relative time] 0.9 {INR} Normal [facility] Comment on above: Result Comment: Therapeutic Range: Moderate Anticoagulant Intensity: INR = 2.0-3.0 High Anticoagulant Intensity: INR = 2.5-3.5 Performed By: #### P TT, PT #### [facility] [address] [address] Physician Pediatrician: Tate Antonio MD PT Coag (PPP) [Time] 12.5 s Normal 11.9-14.8 [facility] Comment on above: Performed By: #### P TT, PT #### [facility] [address] [place] [address] Physician Pediatrician: Tate Antonio MD Portable XR Chest AP single viewon 08-13-2023 No acute process. [facility] EXAMINATION: ONE XRAY VIEW OF THE CHEST 08/13/2023 12:27 pm COMPARISON: None. HISTORY: ORDERING SYSTEM PROVIDED HISTORY: chest pain TECHNOLOGIST PROVIDED HISTORY: chest pain FINDINGS: The lungs are without acute focal process. There is no effusion or pneumothorax. The cardiomediastinal silhouette is without acute process. The osseous structures are without acute process. [facility] Kehinde Hopper MD - 08/13/2023 EXAMINATION: ONE XRAY VIEW OF THE CHEST 08/13/2023 12:27 pm COMPARISON: None. HISTORY: ORDERING SYSTEM PROVIDED HISTORY: chest pain TECHNOLOGIST PROVIDED HISTORY: chest pain FINDINGS: The lungs are without acute focal process. There is no effusion or pneumothorax. The cardiomediastinal silhouette is without acute process. The osseous structures are without acute process. IMPRESSION: No acute process. [facility] Radiology Study observation (narrative) [facility] Portable XR Chest AP single viewOrdered By: Kehinde Hopper on 08-13-2023 [facility] Work Phone: Protime-INRon 08-13-2023 INR Coag (PPP) [Relative time] 0.9 {INR} [facility] Comment on above: Therapeutic Range: Moderate Anticoagulant Intensity: INR = 2.0-3.0 High Anticoagulant Intensity: INR = 2.5-3.5 PT Coag (PPP) [Time] 12.5 s [facility] Troponinon 08-13-2023 Troponin, High Sens <6 Normal 0-14 [facility] Comment on above: Result Comment: High Sensitivity Troponin values cannot be compared with other Troponin methodologies. Performed By: #### T ROPI, CDP, MG, CP #### [facility] [address] [place], [place] [id number] Physician Pediatrician: Tate Antonio MD Troponin I.cardiac High sensitivity method [Mass/Vol] ng/L 0 - 14 ng/L [facility] Comment on above: High Sensitivity Tro ponin values cannot be compared with other Troponin methodologies. [facility] UA w/Reflex Cultureon 2023 Bilirubin, SemiQt,Ur Negative Normal NEG [facility] Comment on above: Performed By: #### U MICAO, UAX #### [facility] [address] [place] [address] Physician Pediatrician: Tate Antonio MD Blood, Urine 2+ Abnormal NEG [facility] Comment on above: Performed By: #### U MICAO, UAX #### [facility] [address] [place], [place] [id number] Physician Pediatrician: Tate Antonio MD Clarity (U) Clear Normal CLEAR [facility] Comment on above: Performed By: #### U MICAO, UAX #### [facility] [address] [place], [place] [address] Physician Pediatrician: Tate Antonio MD Color (U) Yellow Normal YEL [facility] Comment on above: Performed By: #### U MICAO, UAX #### [facility] [address] [place] [address] Physician Pediatrician: Tate Antonio MD Glucose Ql (U) Negative Normal NEG [facility] Comment on above: Performed By: #### U MICAO, UAX #### [facility] [address] [place], [place] [id number] Physician Pediatrician: Tate Antonio MD Ketones Ql (U) Negative Normal NEG [facility] Comment on above: Performed By: #### U MICAO, UAX #### [facility] [address] [place], [place] [phone] Physician Pediatrician: Tate Antonio MD Leukocyte esterase Test strip Ql (U) Negative Normal NEG [facility] Comment on above: Performed By: #### U MICAO, UAX #### [facility] [address] [place] [address] [place] [place], [place] [phone] Physician Pediatrician: Tate Antonio MD Nitrite,Ur Negative Normal NEG [facility] Comment on above: Performed By: #### U MICAO, UAX #### [facility] [address] [place] [address] [place] [place], [place] [address]83 Physician Pediatrician: Tate Antonio MD PH,Ur 6.0 Normal 5.0-9.0 [facility] Comment on above: Performed By: #### U MICAO, UAX #### [address] [place], [place] [address]83 Physician Pediatrician: Tate Antonio MD Protein Ql (U) Negative Normal NEG [facility] Comment on above: Performed By: #### U MICAO, UAX #### [address] [place], [place] [address] Physician Pediatrician: Tate Antonio MD Spec. Dawson,Ur 1.015 Normal 1.010-1.020 [facility] Comment on above: Performed By: #### U MICAO, UAX #### [facility] [address] [place] [address] [address] [place], [place] 9[address]83 Physician Pediatrician: Tate Antonio MD Urobilinogen,Ur Normal Normal 0.0-1.0 [facility] Comment on above: Performed By: #### U MICAO, UAX #### [address] [place] [address] Physician Pediatrician: Tate Antonio MD Urinalysis with Reflex to Cu ltureon 08-13-2023 Bilirubin Ql (U) Negative NEGATIVE [facility] Clarity (U) Clear Clear [facility] Color (U) Yellow Yellow [facility] Glucose Test strip (U) [Mass/Vol] Negative NEGATIVE mg/dL [facility] Hemoglobin Auto test strip Ql (U) 2+ Abnormal NEGATIVE [facility] Interpretation and review of laboratory results Abnormal [facility] Ketones (U) [Mass/Vol] Negative NEGAT [place] mg/dL [facility] Leukocyte esterase Test strip Ql (U) Negative NEGATIVE [facility] Nitrite Ql (U) Negative NEGATIVE [facility] pH (U) 6.0 [pH] 5.0 - 9.0 [facility] Protein (U) [Mass/Vol] Negative NEGAT [place] mg/dL [facility] Specific gravity (U) [Rel density] 1.015 1.010 - 1.020 [facility] Urobilinogen Qn (U) Normal 0.0 - 1. 0 EU/dL [facility] Urinalysis,Microon 4 Epithelial cells LM Ql (Urine sed) 2 TO 5 Normal 0-25 [facility] Comment on above: Performed By: #### U MICAO, UAX #### [facility] [address] [place] [address] [place] [address] Physician Pediatrician: Tate Antonio MD Urine RBC's 2 TO 5 Normal 0-2 [facility] Comment on above: Performed By: #### U MICAO, UAX #### [facility] [address] [place] [address] Physician Pediatrician: Tate Antonio MD Urine WBC's 0 TO 2 Normal 0-5 [facility] Comment on above: Performed By: #### U MICAO, UAX #### [facility] [address] [place] [address] Physician Pediatrician: Tate Antonio MD XR CHEST PORTABLEon 08-13-19 24 XR CHEST PORTABLE EXAMINATION: ONE XRAY VIEW OF THE CHEST 08/13/2023 12:27 pm COMPARISON: None. HISTORY: ORDERING SYSTEM PROVIDED HISTORY: chest pain TECHNOLOGIST PROVIDED HISTORY: chest pain FINDINGS: The lungs are without acute focal process. There is no effusion or pneumothorax. The cardiomediastinal silhouette is without acute process. The osseous structures are without acute process. IMPRESSION: No acute process. Interpreted by: Kehinde Hopper MD Signed by: Kehinde Hopper MD 08/13/23 Final result Normal [facility] MM diagnostic mammo BI w/CAD on 08-09-2023 MM diagnostic mammo BI w/CAD [facility] [place] [address] [place] [address] Ultrasound Report Signed Patient: Bryan Cruz MR#: [id number] : 1970 Acct:[id number] Age/Sex: 52 / F ADM Date: 08/09/23 Loc: CT Room: Type: [facility] Attending Dr: Sandro Hinojosa MD Ordering Provider: Sandro Hinojosa MD Date of Service: 08/09/23 MM/MM diagnostic mammo BI w/CAD: N64.4 ([id number]) US/US breast RT limited: N64.4 Copies to: Sandro Hinojosa MD BILATERAL Diagnostic Full Field digital mammogram with 3-D imaging. Full field digital CC and MLO imaging performed. CAD utilized. COMPARISON: 05/10/2021 HISTORY: Annual screening BREAST COMPOSITION: The breast is almost entirely fatty. BENIGN BREAST CALCIFICATIONS: Present VASCULAR CALCIFICATIONS: None DEVELOPING ARCHITECTURAL DISTORTION: None DEVELOPING BREAST NODULE: None DEVELOPING MALIGNANT CALCIFICATIONS: None AXILLARY LYMPH NODES: Normal POSTSURGICAL CHANGES: None Targeted right breast ultrasound. Breast scanned from 12 to 9:00 position without focal abnormality. US/US breast RT limited IMPRESSION: No mammographic evidence of malignancy. No focal lesion with targeted right breast ultrasound Routine follow-up recommended in one year. RESULT CODE: 2 Benign Findings(s) DENSITY CODE: 2 (approximately 25-50% glandular) FOLLOW UP: 1YR THE FALSE-NEGATIVE RATE OF MAMMOGRAPHY IS APPROXIMATELY 10%. IMAGING OF A PALPABLE ABNORMALITY MUST BE BASED ON CLINICAL GROUNDS. PATIENT WAS ENTERED INTO A REMINDER SYSTEM WITH A TARGET DUE DATE FOR THE NEXT MAMMOGRAM. Impression dictated by: Nahum Cox M.D.08/09/2023 12:07 PM Dictation Location: [facility] Tech: Eboni Mary; Wendy Field Transcribed By: TREE 08/09/23 120 Dictated By: Nahum oCx DO 08/09/23 120 Signed By: 08/09/23 120 Normal [facility] CBCon 07-21-2023 ABSOLUTE BAS 0.0 10*3/uL Normal 0.0-0.2 [place] ABSOLUTE EOS 0.4 10*3/uL Normal 0.0-0.7 [place] ABSOLUTE NEUTROPHIL COUNT 6.4 10*3/uL Normal 1.4-6.5 [facility] Basophils/100 WBC (Bld) 0.1 % Normal 0.0-2.0 [facility] DTYPE AUTO DIFF Normal [facility] Eosinophils/100 WBC (Bld) 4.5 % Normal 0.0-11.0 [facility] Lymphocytes (Bld) [#/Vol] 0.8 10*3/uL Low 1.2-3.4 [facility] Lymphocytes/100 WBC (Bld) 9.1 % Low 20.0-55.0 [facility] Monocytes (Bld) [#/Vol] 0.9 10*3/uL High 0.0-0.7 [facility] Monocytes/100 WBC (Bld) 10.5 % High 0.0-10.0 [facility] Neutrophils/100 WBC (Bld) 75.8 % High 37.0-75.0 [facility] Erythrocyte distribution width (RBC) [Ratio] 14.0 % Normal 11.5-14.5 [facility] Hematocrit (Bld) [Volume fraction] 39.3 % Normal 36.0-48.0 [facility] Hemoglobin (Bld) [Mass/Vol] 12.7 g/dL Normal 12.0-16.0 [facility] MCH (RBC) [Entitic mass] 30.5 pg Normal 26.0-35.0 [facility] MCHC (RBC) [Mass/Vol] 32.3 g/dL Normal 27.0-37.0 [facility] MCV (RBC) [Entitic vol] 94.5 fL Normal 80.0-100.0 [facility] Platelet mean volume (Bld) [Entitic vol] 8.2 fL Normal 7.4-11.0 [facility] Platelets (Bld) [#/Vol] 303 10*3/uL Normal 130-400 [facility] RBC (Bld) [#/Vol] 4.16 10*6/uL Normal 4.0-5.4 [facility] WBC (Bld) [#/Vol] 8.5 10*3/uL Normal 3.6-11.0 [facility] CHEM 7 FASTINGon 07-21-2023 Chloride [Moles/Vol] 106 mmol/L Normal 98-107 [facility] Comment on above: Result Comment: Edison miguel note: Triglyceride levels of 600mg/dL or higher may positively bias chloride results by approximately 2.1 mmol CO2 [Moles/Vol] 30 mmol/L Normal 22-30 [facility] Creatinine [Mass/Vol] 0.40 mg/dL Low 0.7-1.2 [facility] EST. GFR, 215 ml/min/1.73sq.m Normal [facility] EST. GFR,Non 177 ml/min/1.73sq.m Normal [facility] GFR Information Average GFR for 50-5 9 years old = 93. Normal [facility] Comment on above: Result Comment: Travel Sales Consultant peggy Kidney disease, GFR = <60. Kidney failure, GFR = <15. The GFR estimate is not adjusted for extreme body surface area or acute process, nor has it been validated for women or ethnic groups other than and . Glucose [Mass/Vol] 118 mg/dL High 70-100 [facility] Comment on above: Result Comment: NORMAL <100 mg/dL PREDIABETES 101-126 mg/dL DIABETES 126 mg/dL or higher Potassium [Moles/Vol] 3.6 mmol/L Normal 3.5-5.1 [facility] Sodium [Moles/Vol] 141 mmol/L Normal 137-145 [facility] Urea nitrogen [Mass/Vol] 11 mg/dL Normal 7-[address] [facility] [address] HEAD WITHOUT CONTRASTon 1 09-21-2022 CT HEAD WITHOUT CONTRAST EXAMINATION: CT HEAD WITHOUT CONTRAST, 07/21/2023 10:06 AM EST HISTORY: Headache, weakness, x2 days COMPARISON: None. TECHNIQUE: CT scan of the head was performed without IV contrast. Dose reduction techniques were achieved by using automated exposure control and/or adjustment of mA and/or kV according to patient size and/or use of iterative reconstruction technique. FINDINGS: There is no evidence of acute intracranial hemorrhage, extra-axial collection, mass effect, midline shift, herniation or hydrocephalus. The ventricles, sulci and cisterns are age appropriate. The davenport-white differentiation is intact. The mastoid air cells are clear. There is no evidence of skull fracture. Mild mucosal thickening in the right maxillary sinus, partially visualized. IMPRESSION: 1. No acute intracranial finding such as hemorrhage or mass effect. 2. Mild right maxillary sinus mucosal disease, partially visualized. Normal [facility] URINE MACROSCOPICon 07-21-20 23 Bilirubin Ql (U) Negative Normal NEGATIVE [facility] Clarity (U) CLEAR Normal CLEAR [facility] Color (U) YELLOW Normal YELLOW [facility] Glucose Ql (U) Negative Normal NEGATIVE [facility] pH (U) 6.0 [pH] Normal 5.0-7.0 [facility] URINE HEMOGLOBIN SMALL Abnormal NEGATIVE [facility] URINE KETONE Negative Normal NEGATIVE [facility] URINE LEUKOTEST Negative Normal NEGATIVE [facility] URINE NITRATES Negative Normal NEGATIVE [facility] URINE SPEC GRAVITY 1.010 Normal 1.010-1.025 [facility] URINE TOTAL PROTEIN Negative Normal NEGATIVE [facility] Urobilinogen Qn (U) 0.2 {Faisal'U}/dL Normal 0.2-1.0 [facility] URINE MICROSCOPICon 07-21-20 23 BACTERIA TRACE Abnormal NEGATIVE [facility] CASTS NONE Normal NONE [facility] CRYSTAL NONE Normal NONE [facility] Epithelial cells LM Ql (Urine sed) 1 TO 5 Normal [facility] Mucus Ql (Urine sed) Negative Normal NEGATIVE [facility] URINE COMMENT CULTURE CRITERIA NOT MET, NO CULTURE PERFORMED. Normal [facility] URINE RBC'S 1 TO 5 Normal NEGATIVE [facility] URINE WBC'S Negative Normal NEGATIVE [facility] Urinalysis complete panel (U )on 07-19-2023 Bacteria LM.HPF (Urine sed) [#/Area] Negative Negative /HPF [facility] Bilirubin Ql (U) Negative Negative [facility] Clarity (Unsp spec) Clear Clear [facility] Color (U) Yellow Yellow [facility] Epithelial cells LM.HPF (Urine sed) [#/Area] Few [facility] Glucose Test strip (U) [Mass/Vol] Negative Negative [facility] Hemoglobin Ql (U) Trace Abnormal Negative [facility] Hyaline casts (Urine sed) [#/Area] 0 /[LPF] 0 /LPF [facility] Ketones Ql (U) Negative Negative [facility] Leukocyte esterase Test strip Ql (U) Trace Abnormal Negative [facility] Nitrite Ql (U) Negative Negative [facility] pH (U) 6.0 [pH] <8.5 [facility] Protein (U) [Mass/Vol] Negative Negative [facility] RBC LM.HPF (Urine sed) [#/Area] 0-2 /HPF 0-2 /HPF [facility] Specific gravity (U) [Rel density] 1.012 1.005 - 1.030 [facility] Urobilinogen Ql (U) 0.2 EU/dL 0.2-1.0 EU/dL [facility] WBC LM.HPF (Urine sed) [#/Area] 0-5 /HPF 0-5 /HPF [facility] CBCon 07-02-2023 Erythrocyte distribution width (RBC) [Ratio] 13.0 % Normal 11.8-14.4 [facility] Comment on above: Performed By: #### V D25 ####[facility] [address] [place] [address] Lab Director: Akira Gonzalez MD#### CBC, CP ####[facility] [address] [place] [address] Lab Director: Tate Antonio MD Hematocrit (Bld) [Volume fraction] 41.1 % Normal 36.3-47.1 [facility] Comment on above: Performed By: #### V D25 ####[address] [place] [place] [address] Lab Director: Akira Gonzalez MD#### CBC, CP ####[address] , [place] [phone] Lab Director: Tate Antonio MD Hemoglobin (Bld) [Mass/Vol] 12.9 g/dL Normal 11.9-15.1 [facility] Comment on above: Performed By: #### V D25 ####[address] [place] [address] Lab Director: Akira Gonzalez MD#### CBC, CP ####[address] [place], [place] 24[address] Lab Director: Tate Antonio MD MCH (RBC) [Entitic mass] 30.7 pg Normal 25.2-33.5 [facility] Comment on above: Performed By: #### V D25 ####[address] [place] [address] Lab Director: Akira Gonzalez MD#### CBC, CP ####[address] , [place] [address] Lab Director: Tate Antonio MD MCHC (RBC) [Mass/Vol] 31.4 g/dL Normal 28.4-34.8 [facility] Comment on above: Performed By: #### V D25 ####[address] [place] [address] Lab Director: Akira Gonzalez MD#### CBC, CP ####[address] [place], [place] [address] Lab Director: Tate Antonio MD MCV (RBC) [Entitic vol] 97.9 fL Normal 82.6-102.9 [facility] Comment on above: Performed By: #### V D25 ####[address] [place] [address] Lab Director: Akira Gonzalez MD#### CBC, CP ####[address] [place], [place] [address] Lab Director: Tate Antonio MD NRBC Automated 0.0 per 100 WBC Normal 0.0 [facility] Comment on above: Performed By: #### V D25 ####[address] [address] Lab Director: Akira Gonzalez MD#### CBC, CP ####[address] [place], [place] 88[address] Lab Director: Tate Antonio MD Platelet mean volume (Bld) [Entitic vol] 11.1 fL Normal 8.1-13.5 [facility] Comment on above: Performed By: #### V D25 ####[address] [phone] Director: Akira Gonzalez MD#### CBC, CP ####[address] , [place] [phone] Lab Director: Tate Antonio MD Platelets (Bld) [#/Vol] 333 10*3/uL Normal 138-453 [facility] Comment on above: Performed By: #### V D25 ####[address] [phone] Director: Akira Gonzalez MD#### CBC, CP ####[address] [place], [place] [address] Lab Director: Tate Antonio MD RBC (Bld) [#/Vol] 4.20 10*6/uL Normal 3.95-5.11 [facility] Comment on above: Performed By: #### V D25 ####[address] [place], [place] [phone])[phone] Director: Akira Gonzalez MD#### CBC, CP ####[address] [place], [place] 3285[address] Lab Director: Tate Antonio MD WBC (Bld) [#/Vol] 8.1 10*3/uL Normal 3.5-11.3 [facility] Comment on above: Performed By: #### V D25 ####[address] [place], [place] [phone] Director: Akira Gonzalez MD#### CBC, CP ####[address] [place], [place] [address] Lab Director: Tate Antonio MD Comp Metabolic Profon 2022 Albumin [Mass/Vol] 4.1 g/dL Normal 3.5-5.2 [facility] Comment on above: Performed By: #### V D25 ####[address] [place], [place] [phone] Director: Akira Gonzalez MD#### CBC, CP ####[address] [place], [place] [address] Lab Director: Tate Antonio MD Albumin/Glob Ratio 1.6 Normal 1.0-2.5 [facility] Comment on above: Performed By: #### V D25 ####[facility] [place], [place] [phone] Director: Akira Gonzalez MD#### CBC, CP ####[address] [place], [place] [address] Lab Director: Tate Antonio MD Alkaline Phos 137 U/L High 35-104 [facility] Comment on above: Performed By: #### V D25 ####[address] [place], [place] [phone] Director: Akira Gonzalez MD#### CBC, CP ####[address] [place], [place] [phone] Director: Tate Antonio MD ALT [Catalytic activity/Vol] 21 U/L Normal 5-33 [facility] Comment on above: Performed By: #### V D25 ####[address] [address] Lab Director: Akira Gonzalez MD#### CBC, CP ####[address] [place], [place] [address])[phone] Director: Tate Antonio MD Anion gap [Moles/Vol] 10 mmol/L Normal 9-17 [facility] Comment on above: Performed By: #### V D25 ####[address] [address] Lab Director: Akira Gonzalez MD#### CBC, CP ####[address] [place] [address]83[facility])[phone] Director: Tate Antonio MD AST [Catalytic activity/Vol] 13 U/L Normal <32 [facility] Comment on above: Performed By: #### V D25 ####[address] [phone] Director: Akira Gonzalez MD#### CBC, CP ####[address] [place], [place] [address])[phone] Director: Tate Antonio MD Bilirubin [Mass/Vol] 0.3 mg/dL Normal 0.3-1.2 [facility] Comment on above: Performed By: #### V D25 ####[address] [place], [place] [phone] Director: Akira Gonzalez MD#### CBC, CP ####[address] [place] [address] Lab Director: Tate Antonio MD BUN/CRE Ratio 22 High 9-20 [facility] Comment on above: Performed By: #### V D25 ####[address] [place], [place] [phone] Director: Akira Gonzalez MD#### CBC, CP ####[address] [place], [place] [phone] Director: Tate Antonio MD Calcium [Mass/Vol] 9.5 mg/dL Normal 8.6-10.4 [facility] Comment on above: Performed By: #### V D25 ####[address] [phone] Director: Akira Gonzalez MD#### CBC, CP ####[address] [place], [place] 84908419)[phone] Director: Tate Antonio MD Chloride [Moles/Vol] 105 mmol/L Normal 98-107 [facility] Comment on above: Performed By: #### V D25 ####[address] [phone] Director: Akira Gonzalez MD#### CBC, CP ####[address] [place], [place] [phone])[phone] Director: Tate Antonio MD CO2 [Moles/Vol] 29 mmol/L Normal 20-31 [facility] Comment on above: Performed By: #### V D25 ####[address] [phone] Director: Akira Gonzalez MD#### CBC, CP ####[address] [place] [address] Lab Director: Tate Antonio MD Creatinine [Mass/Vol] 0.5 mg/dL Normal 0.5-0.9 [facility] Comment on above: Performed By: #### V D25 ####[address] [address] Lab Director: Akira Gonzalez MD#### CBC, CP ####[address] [place], [place] 2207683 Lab Director: Tate Antonio MD GFR/1.73 sq M.predicted among non-blacks MDRD (S/P/Bld) [Vol rate/Area] mL/min/{1.73_m2} Normal >60 [facility] Comment on above: Result Comment: These results are not intended for use in patients <18 years of age. eGFR results are calculated without a race factor using the 2020 CKD-EPI equation. Careful clinical correlation is recommended, particularly when comparing to results calculated using previous equations. The CKD-EPI equation is less accurate in patients with extremes of muscle mass, extra-renal metabolism of creatine, excessive creatine ingestion, or following therapy that affects renal tubular secretion. Performed By: #### V D25 ####[address] [place], [place] [phone] Director: Akira Gonzalez MD#### CBC, CP ####[address] [place], [place] 7115[address] Lab Director: Tate Antonio MD Glucose [Mass/Vol] 81 mg/dL Normal 70-99 [facility] Comment on above: Performed By: #### V D25 ####[facility] [address] [place] [address] Lab Director: Akira Gonzalez MD#### CBC, CP ####[address] [place], [place] 5759183 Lab Director: Tate Antonio MD Potassium [Moles/Vol] 4.2 mmol/L Normal 3.7-5.3 [facility] Comment on above: Performed By: #### V D25 ####[address] [place], [place] [phone] Director: Akira Gonzalez MD#### CBC, CP ####[address] [place] [address] Lab Director: Tate Antonio MD Protein [Mass/Vol] 6.7 g/dL Normal 6.4-8.3 [facility] Comment on above: Performed By: #### V D25 ####[address] [phone] Director: Akira Gonzalez MD#### CBC, CP ####[address] , [place] 3127383 Lab Director: Tate Antonio MD Sodium [Moles/Vol] 144 mmol/L Normal 135-144 [facility] Comment on above: Performed By: #### V D25 ####[address] [phone] Director: Akira Gonzalez MD#### CBC, CP ####[address] [place] [address] Lab Director: Tate Antonio MD Urea nitrogen [Mass/Vol] 11 mg/dL Normal 6-20 [facility] Comment on above: Performed By: #### V D25 ####[address] [phone] Director: Akira Gonzalez MD#### CBC, CP ####[address] [place] [address] Lab Director: Tate Antonio MD Vitamin D 25 [place]on 07-02-2023 Vitamin D 25 [place] 18.7 ng/mL Low >29.9 [facility] Comment on above: Result Comment: Reference Range: Vitamin D status Range Deficiency <20 ng/mL Mild Deficiency 20-30 ng/mL Sufficiency 30-100 ng/mL Toxicity >100 ng/mL Performed By: #### V D25 ####[facility] [place] [address] Lab Director: Akira Gonzalez MD#### CBC, CP ####[facility] [address] [place], [place] 9[address]83 Lab Director: Tate Antonio MD Alanine aminotransferase [En zymatic activity/volume] in Serum or PlasmaOrdered By: Jaswant Freitas on 04-08-2023 ALT [Catalytic activity/Vol] 14 U/L Normal 7-52 [facility] Comment on above: Performed By: #### C MP, CBC #### [address] Albumin [Mass/volume] in Ser um or Plasma by Bromocresol green (BCG) dye binding methoOrdered By: Jaswant Freitas on 04-08-2023 Albumin BCG dye [Mass/Vol] 4.0 g/dL 3.5-5.7 [facility] Alkaline phosphatase [Enzyma tic activity/volume] in Serum or PlasmaOrdered By: Jaswant Freitas on 04-08-2023 ALP [Catalytic activity/Vol] 105 U/L High 34-104 [facility] Comment on above: Performed By: #### C MP, CBC #### [address] Amphetamine Screen Ql (U)Ord ered By: Jaswant Freitas on 04-08-2023 Amphetamines Ql (U) Negative Negative [facility] Aspartate aminotransferase [ Enzymatic activity/volume] in Serum or PlasmaOrdered By: Jaswant Freitas on 04-08-2023 AST [Catalytic activity/Vol] 14 U/L Normal 13-39 [facility] Comment on above: Performed By: #### C MP, CBC #### [place] [id number] [facility] Automated basophil %Ordered By: Jaswant Freitas on 04-08-2023 Basophils/100 WBC (Bld) 0.8 % Normal . [facility] Comment on above: Performed By: #### C MP, CBC #### [address] Automated basophil countOrde red By: Jaswant Freitas on 04-08-2023 Basophils (Bld) [#/Vol] 0.1 10*3/uL Normal 0.0-0.2 [facility] Comment on above: Result Comment: PERF ORMED BY: [place] [address] PATHOLOGIST DIRECTOR OF OCCUPATIONAL HEALTH JESSICA MCMULLEN M.D. Performed By: #### C MP, CBC #### [address] Automated blood monocyte cou ntOrdered By: Jaswant Freitas on 04-08-2023 Monocytes (Bld) [#/Vol] 0.7 10*3/uL Normal 0.0-0.8 [facility] Comment on above: Performed By: #### C MP, CBC #### [address] Automated eosinophil %Ordere d By: Jaswant Freitas on 04-08-2023 Eosinophils/100 WBC (Bld) 0.3 % Normal . [facility] Comment on above: Performed By: #### C MP, CBC #### [address] Automated eosinophil countOr dered By: Jaswant Freitas on 04-08-2023 Eosinophils (Bld) [#/Vol] 0.0 10*3/uL Normal 0.0-0.45 [facility] Comment on above: Performed By: #### C MP, CBC #### [address] Automated erythrocytes count in urine sediment (number/area)Ordered By: Jaswant Freitas on 04-08-2023 RBC Auto (Urine sed) [#/Area] 1-2 [HPF] 0-4 [facility] Automated leukocytes count i n urine sediment (number/area)Ordered By: Jaswant Freitas on 04-08-2023 WBC Auto (Urine sed) [#/Area] 3-4 [HPF] 0-4 [facility] Automated monocyte %Ordered By: Jaswant Freitas on 04-08-2023 Monocytes/100 WBC (Bld) 5.9 % Normal . [facility] Comment on above: Performed By: #### C MP, CBC #### [facility] [address] Automated neutrophil %Ordere d By: Jaswant Freitas on 04-08-2023 Neutrophils/100 WBC (Bld) 86.2 % Normal . [facility] Comment on above: Performed By: #### C MP, CBC #### [facility] [address] Automated urine color determ inationOrdered By: Jaswant Freitas on 04-08-2023 Color (U) Yellow Normal Yellow [facility] Comment on above: Order Comment: Name Collection Type:: Clean-Voided Midstream Performed By: #### U RDS, ADDONUAPLUS #### [facility] [address] Barbiturates [Presence] in U rine by Screen methodOrdered By: Jaswant Freitas on 04-08-2023 Barbiturates Screen Ql (U) Negative Negative [facility] Benzodiazepines Screen Ql (U )Ordered By: Jaswant Freitas on 04-08-2023 Benzodiazepines Ql (U) Negative Negative [facility] Benzoylecgonine [Presence] i n Urine by Screen methodOrdered By: Jaswant Freitas on 04-08-2023 Benzoylecgonine Screen Ql (U) Positive Negative [facility] Bilirubin Test strip Ql (U)O rdered By: Jaswant Freitas on 04-08-2023 Bilirubin Ql (U) Negative Negative [facility] Bilirubin.total [Mass/volume ] in Serum or PlasmaOrdered By: Jaswant Freitas on 04-08-2023 Bilirubin [Mass/Vol] 0.5 mg/dL Normal 0.3-1.0 [facility] Comment on above: Performed By: #### C MP, CBC #### [facility] [address] Calcium [Mass/volume] in Ser um or PlasmaOrdered By: Jaswant Freitas on 04-08-2023 Calcium [Mass/Vol] 9.0 mg/dL Normal 8.6-10.3 [facility] Comment on above: Performed By: #### C MP, CBC #### [address] Cannabinoids [Presence] in U rine by Screen methodOrdered By: Jaswant Freitas on 04-08-2023 Cannabinoids Screen Ql (U) Positive Negative [facility] Comment on above: These are unconfirme d results and should not be used for legal purposes. Drug Cut-Off Concentration: AMPH 1000 ng/mL JACK 200 ng/mL PAXTON 200 ng/mL COCM 300 ng/mL OP 300 ng/mL PCP 25 ng/mL THC 20 ng/mL Carbon dioxide, total [Moles /volume] in Serum or PlasmaOrdered By: Jaswant Freitas on 04-08-2023 CO2 [Moles/Vol] 29.0 mmol/L Normal 21.0-31.0 [facility] Comment on above: Performed By: #### C MP, CBC #### [address] Chloride [Moles/volume] in S real or PlasmaOrdered By: Jaswant Freitas on 04-08-2023 Chloride [Moles/Vol] 104 mmol/L Normal 98-107 [facility] Comment on above: Performed By: #### C MP, CBC #### [address] Complete Blood Count Auto Di ffon 04-08-2023 Mean Corpuscular HGB Conc 33.4 g/dL Normal 32.0-35.0 [facility] Comment on above: Performed By: #### C MP, CBC #### [address] Monocytes/100 WBC (Bld) 14.56 % Normal 0.00-20.00 T christy [facility] Comment on above: Performed By: #### C MP, CBC #### [address] NRBC% 0.1 /100{WBC} Normal 0-0.5 [facility] Comment on above: Performed By: #### C MP, CBC #### [address] Comprehensive Metabolic Pane jessy 04-08-2023 Albumin [Mass/Vol] 4.0 g/dL Normal 3.5-5.7 [facility] Comment on above: Performed By: #### C MP, CBC #### [address] Creatinine Clr Calc Pharmacy 112.59 Normal [facility] Comment on above: Result Comment: PERF ORMED BY: [place] [address] PATHOLOGIST DIRECTOR OF OCCUPATIONAL HEALTH JESSICA MCMULLEN M.D. Performed By: #### C MP, CBC #### [address] GFR/1.73 sq M.predicted MDRD (S/P/Bld) [Vol rate/Area] mL/min/{1.73_m2} Normal [facility] Comment on above: Performed By: #### C MP, CBC #### [address] Creatinine [Mass/volume] in Serum or PlasmaOrdered By: Jaswant Freitas on 04-08-2023 Creatinine [Mass/Vol] 0.59 mg/dL Low 0.60-1.20 [facility] Comment on above: Performed By: #### C MP, CBC #### [address] Dipstick and Microscopicon 0 04-08-2023 Appearance (U) Clear Normal Clear [facility] Comment on above: Order Comment: Name Collection Type:: Clean-Voided Midstream Performed By: #### U RDS, ADDONUAPLUS #### [address] Bacteria,Urine None Seen Normal None Seen [facility] Comment on above: Order Comment: Name Collection Type:: Clean-Voided Midstream Performed By: #### U RDS, ADDONUAPLUS #### [facility] [address] [place] [address] [place] Bilirubin,Urine Negative Normal Negative [facility] Comment on above: Order Comment: Name Collection Type:: Clean-Voided Midstream Performed By: #### U RDS, ADDONUAPLUS #### [facility] [address] Glucose Ql (U) Normal Normal Normal [facility] Comment on above: Order Comment: Name Collection Type:: Clean-Voided Midstream Performed By: #### U RDS, ADDONUAPLUS #### [place] [address] [place] Hyaline Casts,Urine None Seen Normal 0-8 [facility] Comment on above: Order Comment: Name Collection Type:: Clean-Voided Midstream Result Comment: PERF ORMED BY: [place] [address] PATHOLOGIST DIRECTOR OF OCCUPATIONAL HEALTH JESSICA MCMULLEN M.D. Performed By: #### U RDS, ADDONUAPLUS #### [address] Ketones Ql (U) Negative Normal Negative [facility] Comment on above: Order Comment: Name Collection Type:: Clean-Voided Midstream Performed By: #### U RDS, ADDONUAPLUS #### [place] [address] [place] Leukocyte esterase Test strip Ql (U) 1+ High Negative [facility] Comment on above: Order Comment: Name Collection Type:: Clean-Voided Midstream Performed By: #### U RDS, ADDONUAPLUS #### [place] [address] [place] Nitrite,Urine Negative Normal Negative [facility] Comment on above: Order Comment: Name Collection Type:: Clean-Voided Midstream Performed By: #### U RDS, ADDONUAPLUS #### [place] [address] [place] Occult Blood,Urine 1+ High Negative The [facility] Comment on above: Order Comment: Name Collection Type:: Clean-Voided Midstream Result Comment: PERF ORMED BY: [place] [address] PATHOLOGIST DIRECTOR OF OCCUPATIONAL HEALTH JESSICA MCMULLEN M.D. Performed By: #### U RDS, ADDONUAPLUS #### [place] [address] [place] Protein,Urine Negative Normal Negative [facility] Comment on above: Order Comment: Name Collection Type:: Clean-Voided Midstream Performed By: #### U RDS, ADDONUAPLUS #### [place] [address] [place] RBC,Urine 1-2 Normal 0-4 [facility] Comment on above: Order Comment: Name Collection Type:: Clean-Voided Midstream Performed By: #### U RDS, ADDONUAPLUS #### [place] [address] [place] Specificy Dawson,Urine 1.003 Normal 1.001-1.030 [facility] Comment on above: Order Comment: Name Collection Type:: Clean-Voided Midstream Performed By: #### U RDS, ADDONUAPLUS #### [address] Squamous Epithelial Cell,Urine 0-1 Normal 0-2 [facility] Comment on above: Order Comment: Name Collection Type:: Clean-Voided Midstream Performed By: #### U RDS, ADDONUAPLUS #### [place] [address] [place] Urobilinogen,Urine Normal Normal Normal [facility] Comment on above: Order Comment: Name Collection Type:: Clean-Voided Midstream Performed By: #### U RDS, ADDONUAPLUS #### [place] [address] [place] WBC,Urine 3-4 Normal 0-4 [facility] Comment on above: Order Comment: Name Collection Type:: Clean-Voided Midstream Performed By: #### U RDS, ADDONUAPLUS #### [address] Drug Screen,Urineon 04-08-20 Amphetamine Screen,Urine Negative Normal Negative [facility] Comment on above: Performed By: #### U RDS, ADDONUAPLUS #### [address] Barbiturate Screen,Urine Negative Normal Negative [facility] Comment on above: Performed By: #### U RDS, ADDONUAPLUS #### [address] Benzodiazepines Screen,Urine Negative Normal Negative [facility] Comment on above: Performed By: #### U RDS, ADDONUAPLUS #### [address] Cannabinoid Screen,Urine Positive High Negative [facility] Comment on above: Result Comment: Thes e are unconfirmed results and should not be used for legal purposes. Drug Cut-Off Concentration: AMPH 1000 ng/mL JACK 200 ng/mL PAXTON 200 ng/mL COCM 300 ng/mL OP 300 ng/mL PCP 25 ng/mL THC 20 ng/mL PERFORMED BY: [place] [address] PATHOLOGIST DIRECTOR OF OCCUPATIONAL HEALTH JESSICA MCMULLEN M.D. Performed By: #### U RDS, ADDONUAPLUS #### [address] Cocaine Screen,Urine Positive High Negative [facility] Comment on above: Performed By: #### U RDS, ADDONUAPLUS #### [place] [address] [place] Opiate Screen,Urine Negative Normal Negative [facility] Comment on above: Performed By: #### U RDS, ADDONUAPLUS #### [address] Phencyclidine Screen,Urine Negative Normal Negative [facility] Comment on above: Performed By: #### U RDS, ADDONUAPLUS #### [place] [address] [place] Erythrocyte distribution wid th [Ratio] by Automated countOrdered By: Jaswant Freitas on 04-08-2023 Erythrocyte distribution width (RBC) [Ratio] 13.6 % Normal 11.9-15.3 [facility] Comment on above: Performed By: #### C MP, CBC #### [facility] [address] Erythrocytes [#/volume] in B lood by Automated countOrdered By: Jaswant Freitas on 04-08-2023 RBC (Bld) [#/Vol] 4.34 10*6/uL Normal 3.60-5.00 [facility] Comment on above: Performed By: #### C MP, CBC #### [facility] [address] Glucose [Mass/volume] in Ser um or PlasmaOrdered By: Jaswant Freitas on 04-08-2023 Glucose [Mass/Vol] 115 mg/dL High 70-100 [facility] Comment on above: ADA recommended refe rence rangeRandom Glucose Reference Range is dependent on time and content of last meal. Glucose of more than 200 mg/dL in a nonstressed, ambulatory subject supports the diagnosis of Diabetes Mellitus. Result Comment: [place] Glucose Reference Range is dependent on time and content of last meal. Glucose of more than 200 mg/dL in a nonstressed, ambulatory subject supports the diagnosis of Diabetes Mellitus. ADA recommended reference range Performed By: #### C MP, CBC #### [facility] [address] Hematocrit [Volume Fraction] of Blood by Automated countOrdered By: Jaswant Freitas on 04-08-2023 Hematocrit (Bld) [Volume fraction] 40.1 % Normal 34.0-46.4 [facility] Comment on above: Performed By: #### C MP, CBC #### [facility] [address] Hemoglobin [Mass/volume] in BloodOrdered By: Jaswant Freitas on 04-08-2023 Hemoglobin (Bld) [Mass/Vol] 13.4 g/dL Normal 11.8-15.4 [facility] Comment on above: Performed By: #### C MP, CBC #### [facility] [address] Ketones Auto test strip (U) [Mass/Vol]Ordered By: Jaswant Freitas on 04-08-2023 Ketones (U) [Mass/Vol] Negative Negative [facility] - UrinalysisOrder ed By: Jaswant Freitas on 04-08-2023 Hyaline casts LM Ql (Urine sed) None seen [LPF] 0-8 [facility] Leukocytes [#/volume] correc alva for nucleated erythrocytes in Blood by Automated counOrdered By: Jaswant Freitas on 04-08-2023 WBC corrected for nucl RBC Auto (Bld) [#/Vol] 11.0 10*3/uL 3.8-11.6 [facility] Leukocytes [#/volume] in Blo od by Automated countOrdered By: Jaswant Freitas on 04-08-2023 WBC (Bld) [#/Vol] 11.0 10*3/uL Normal 3.8-11.6 [facility] Comment on above: Performed By: #### C MP, CBC #### [facility] [address] [place] [address] [place] Lymphocytes [#/volume] in Bl ood by Automated countOrdered By: Jaswant Freitas on 04-08-2023 Lymphocytes (Bld) [#/Vol] 0.8 10*3/uL Low 1.00-4.8 [facility] Comment on above: Performed By: #### C MP, CBC #### [facility] [address] [place] [address] [place] Lymphocytes/100 leukocytes i n Blood by Automated countOrdered By: Jaswant Freitas on 04-08-2023 Lymphocytes/100 WBC (Bld) 6.8 % Normal . [facility] Comment on above: Performed By: #### C MP, CBC #### [facility] [address] [place] [address] [place] MCH [Entitic mass] by Automa alva countOrdered By: Jaswant Freitas on 04-08-2023 MCH (RBC) [Entitic mass] 30.9 pg Normal 24.7-34.3 [facility] Comment on above: Performed By: #### C MP, CBC #### [facility] [address] [place] [address] MCHC Auto (RBC) [Mass/Vol]Or dered By: Jaswant Freitas on 04-08-2023 MCHC (RBC) [Mass/Vol] 33.4 g/dL 32.0-35.0 [facility] [place] MCV [Entitic volume] by Auto mated countOrdered By: Jaswant Freitas on 04-08-2023 MCV (RBC) [Entitic vol] 92.3 fL Normal 80-100 [facility] Comment on above: Performed By: #### C MP, CBC #### [facility] [address] [place] [address] Monocyte distribution width [Entitic volume] in Blood by AutomatedOrdered By: Jaswant Freitas on 04-08-2023 Monocyte distribution width Auto (Bld) [Entitic vol] 14.56 % 0.00-20.00 [facility] Neutrophils [#/volume] in Bl ood by Automated countOrdered By: Jaswant Freitas on 04-08-2023 Neutrophils (Bld) [#/Vol] 9.5 10*3/uL High 1.8-7.7 [facility] Comment on above: Performed By: #### C MP, CBC #### [facility] [address] [place] [address] Nitrite Test strip Ql (U)Ord ered By: Jaswant Freitas on 04-08-2023 Nitrite Ql (U) Negative Negative [facility] No Panel InformationOrdered By: Jaswant Freitas on 04-08-2023 Estimated GFR (CKD-EPI) > 60.0 mL/Min [facility] Creatinine Clearance (Chem 112.59 [facility] Nucleated erythrocytes [Pres ence] in Blood by Automated countOrdered By: Jaswant Freitas on 04-08-2023 Nucleated RBC Auto Ql (Bld) 0.1 /100{WBC} 0-0.5 [facility] Opiates [Presence] in Urine by Screen methodOrdered By: Jaswant Freitas on 04-08-2023 Opiates Screen Ql (U) Negative Negative [facility] Phencyclidine Screen Ql (U)O rdered By: Jaswant Freitas on 04-08-2023 Phencyclidine Ql (U) Negative Negative [facility] Platelet mean volume [Entiti c volume] in Blood by Automated countOrdered By: Jaswant Freitas on 04-08-2023 Platelet mean volume (Bld) [Entitic vol] 7.7 fL Normal 6.3-10.7 [facility] Comment on above: Performed By: #### C MP, CBC #### [address] Platelets [#/volume] in Bloo d by Automated countOrdered By: Jaswant Freitas on 04-08-2023 Platelets (Bld) [#/Vol] 357 10*3/uL Normal 150-450 [facility] Comment on above: Performed By: #### C MP, CBC #### [facility] [address] [place] [address] [place] Potassium [Moles/volume] in Serum or PlasmaOrdered By: Jaswant Freitas on 04-08-2023 Potassium [Moles/Vol] 3.6 mmol/L Normal 3.5-5.1 [facility] Comment on above: Performed By: #### C MP, CBC #### [address] Protein Auto test strip (U) [Mass/Vol]Ordered By: Jaswant Freitas on 04-08-2023 Protein (U) [Mass/Vol] Negative Negative [facility] Protein [Mass/volume] in Ser um or PlasmaOrdered By: Jaswant Freitas on 04-08-2023 Protein [Mass/Vol] 6.9 g/dL Normal 6.4-8.9 [facility] Comment on above: Performed By: #### C MP, CBC #### [address] Serum globulin measurement b y calculation (mass/volume)Ordered By: Jaswant Freitas on 04-08-2023 Globulin (S) [Mass/Vol] 2.9 g/dL Normal [facility] Comment on above: Performed By: #### C MP, CBC #### [address] Serum or plasma albumin/glob ulin mass ratioOrdered By: Jaswant Freitas on 04-08-2023 Albumin/Globulin [Mass ratio] 1.4 {ratio} Normal [facility] Comment on above: Performed By: #### C MP, CBC #### [address] Serum or plasma anion gap de terminationOrdered By: Jaswant Freitas on 04-08-2023 Anion gap [Moles/Vol] 9.6 mmol/L Normal 6.0-15.0 [facility] Comment on above: Performed By: #### C MP, CBC #### [address] Sodium [Moles/volume] in Ser um or PlasmaOrdered By: Jaswant Freitas on 04-08-2023 Sodium [Moles/Vol] 139 mmol/L Normal 136-145 [facility] Comment on above: Performed By: #### C MP, CBC #### [address] Specific gravity Auto test s trip (U) [Rel density]Ordered By: Jaswant Freitas on 04-08-2023 Specific gravity (U) [Rel density] 1.003 1.001-1.030 [facility] Squamous epithelial cells de tection in urine sediment by light microscopyOrdered By: Jaswant Freitas on 04-08-2023 Epithelial cells.squamous LM Ql (Urine sed) 0-1 [HPF] 0-2 [facility] Urea nitrogen [Mass/volume] in Serum or PlasmaOrdered By: Jaswant Freitas on 04-08-2023 Urea nitrogen [Mass/Vol] 8 mg/dL Normal 7-25 [facility] Comment on above: Performed By: #### C MP, CBC #### [address] Urine bacteria detection by automated methodOrdered By: Jaswant Freitas on 04-08-2023 Bacteria Auto Ql (U) None seen None Seen [facility] Urine clarity by refractomet ry automatedOrdered By: Jaswant Freitas on 04-08-2023 Clarity Refractometry automated (U) Clear Clear [facility] Urine glucose measurement by automated test strip (mass/volume)Ordered By: Jaswant Freitas on 04-08-2023 Glucose Auto test strip (U) [Mass/Vol] Normal mg/dL Normal [facility] Urine hemoglobin detection b y automated test stripOrdered By: Jaswant Freitas on 04-08-2023 Hemoglobin Auto test strip Ql (U) 1+ Negative [facility] Urine leukocyte esterase det ection by automated test stripOrdered By: Jaswant Freitas on 04-08-2023 Leukocyte esterase Auto test strip Ql (U) 1+ Negative [facility] Urine pH measurement by auto mated test stripOrdered By: Jaswant Freitas on 04-08-2023 pH (U) 6.0 [pH] Normal 5.0-9.0 [facility] Comment on above: Order Comment: Name Collection Type:: Clean-Voided Midstream Performed By: #### U RDS, ADDONUAPLUS #### [facility] [address] [place] [address] Urobilinogen Auto test strip (U) [Mass/Vol]Ordered By: Jaswant Freitas on 04-08-2023 Urobilinogen (U) [Mass/Vol] Normal mg/dL Normal [facility] Albumin [Mass/volume] in Ser um or PlasmaOrdered By: Rina Reardon on 10-09-2022 Albumin [Mass/Vol] 3.6 g/dL 3.2-5.5 [facility] Alkaline phosphatase [Enzyma tic activity/volume] in Serum or PlasmaOrdered By: Rina Reardon on 10-09-2022 ALP [Catalytic activity/Vol] 108 U/L 32-92 [facility] Aspartate aminotransferase [ Enzymatic activity/volume] in Serum or PlasmaOrdered By: Rina Reardon on 10-09-2022 AST [Catalytic activity/Vol] 12 U/L 10-42 [facility] Basophils Auto (Bld) [#/Vol] Ordered By: Ellen Gonzáles on 10-09-2022 Basophils (Bld) [#/Vol] 0.0 10*3/uL 0.0-0.2 [facility] Basophils/100 WBC Auto (Bld) Ordered By: Ellen Gonzáles on 10-09-2022 Basophils/100 WBC (Bld) 0.2 % . [facility] Bilirubin.total [Mass/volume ] in Serum or PlasmaOrdered By: Rina Reardon on 10-09-2022 Bilirubin [Mass/Vol] 0.5 mg/dL 0.3-1.2 [facility] Calcium [Mass/volume] in Ser um or PlasmaOrdered By: Rina Reardon on 10-09-2022 Calcium [Mass/Vol] 9.0 mg/dL 8.2-10.2 [facility] Carbon dioxide, total [Moles /volume] in Serum or PlasmaOrdered By: Rina Reardon on 10-09-2022 CO2 [Moles/Vol] 29.0 mmol/L 22.0-30.0 [facility] Chloride [Moles/volume] in S real or PlasmaOrdered By: Rina Reardon on 10-09-2022 Chloride [Moles/Vol] 104 mmol/L 95-114 [facility] Cholesterol [Mass/volume] in Serum or PlasmaOrdered By: Rina Reardon on 10-09-2022 Cholesterol [Mass/Vol] 130 mg/dL 140-200 [facility] Comment on above: Chol less than 200 m g/dl low riskChol 201-239 mg/dl borderline riskChol 240 mg/dl and greater high risk Cholesterol in LDL Calc [Mas s/Vol]Ordered By: Rina Reardon on 10-09-2022 Cholesterol in LDL [Mass/Vol] 65 mg/dL 0-100 [facility] Comment on above: LDL ATP III CLASSIFI CATIONLDL less than 100 mg/dL OptimalLDL 100-129 mg/dL Near or above optimalLDL 130-159 mg/dL Borderline highLDL 160-189 mg/dL HighLDL greater than 189 mg/dL Very high Cholesterol in VLDL Calc [Ma ss/Vol]Ordered By: Rina Reardon on 10-09-2022 Cholesterol in VLDL [Mass/Vol] 12 mg/dL [facility] Creatinine and Glomerular fi ltration rate.predicted panel (S/P/Bld)Ordered By: Rina Reardon on 10-09-2022 Creatinine [Mass/Vol] 0.58 mg/dL 0.44-1.03 [facility] Eosinophils Auto (Bld) [#/Vo l]Ordered By: Ellen Gonzáles on 10-09-2022 Eosinophils (Bld) [#/Vol] 0.5 10*3/uL 0.0-0.45 [facility] Eosinophils/100 WBC Auto (Bl d)Ordered By: Ellen Gonzáles on 10-09-2022 Eosinophils/100 WBC (Bld) 5.6 % . [facility] Erythrocyte distribution wid th Auto (RBC) [Ratio]Ordered By: Ellen Gonzáles on 10-09-2022 Erythrocyte distribution width (RBC) [Ratio] 13.6 % 11.9-15.3 [facility] Estimated glomerular filtrat ion rate (GFR) non- AmericanOrdered By: Rina Reardon on 10-09-2022 GFR/1.73 sq M.predicted among non-blacks MDRD (S/P/Bld) [Vol rate/Area] > 60 mL/Min [facility] Globulin Calc (S) [Mass/Vol] Ordered By: Rnia Reardon on 10-09-2022 Globulin (S) [Mass/Vol] 2.3 g/dL [facility] Glucose [Mass/volume] in Ser um or PlasmaOrdered By: Rina Reardon on 10-09-2022 Glucose [Mass/Vol] 110 mg/dL 70-100 [facility] Comment on above: ADA recommended refe rence rangeRandom Glucose Reference Range is dependent on time and content of last meal. Glucose of more than 200 mg/dL in a nonstressed, ambulatory subject supports the diagnosis of Diabetes Mellitus. Hematocrit Auto (Bld) [Volum e fraction]Ordered By: Ellen Gonzáles on 10-09-2022 Hematocrit (Bld) [Volume fraction] 38.4 % 34.0-46.4 [facility] Hemoglobin [Mass/volume] in BloodOrdered By: Ellen Gonzáles on 10-09-2022 Hemoglobin (Bld) [Mass/Vol] 12.7 g/dL 11.8-15.4 [facility] Leukocytes [#/volume] correc alva for nucleated erythrocytes in Blood by Automated counOrdered By: Ellen Gonzáles on 10-09-2022 WBC corrected for nucl RBC Auto (Bld) [#/Vol] 8.8 10*3/uL 3.8-11.6 [facility] Lymphocytes Auto (Bld) [#/Vo l]Ordered By: Ellen Gonzáles on 10-09-2022 Lymphocytes (Bld) [#/Vol] 1.3 10*3/uL 1.00-4.8 [facility] Lymphocytes/100 WBC Auto (Bl d)Ordered By: Ellen Gonzáles on 10-09-2022 Lymphocytes/100 WBC (Bld) 14.6 % . [facility] MCH Auto (RBC) [Entitic mass ]Ordered By: Ellen Gonzáles on 10-09-2022 MCH (RBC) [Entitic mass] 30.7 pg 24.7-34.3 [facility] MCHC Auto (RBC) [Mass/Vol]Or dered By: Ellen Gonzáles on 10-09-2022 MCHC (RBC) [Mass/Vol] 33.2 g/dL 32.0-35.0 [facility] [place] MCV Auto (RBC) [Entitic vol] Ordered By: Ellen Gonzáles on 10-09-2022 MCV (RBC) [Entitic vol] 92.5 fL 80-100 [facility] Monocytes Auto (Bld) [#/Vol] Ordered By: Ellen Gonzáles on 10-09-2022 Monocytes (Bld) [#/Vol] 0.7 10*3/uL 0.0-0.8 [facility] Monocytes/100 WBC Auto (Bld) Ordered By: Ellen Gonzáles on 10-09-2022 Monocytes/100 WBC (Bld) 7.9 % . [facility] Neutrophils Auto (Bld) [#/Vo l]Ordered By: Ellen Gonzáles on 10-09-2022 Neutrophils (Bld) [#/Vol] 6.3 10*3/uL 1.8-7.7 [facility] Neutrophils/100 WBC Auto (Bl d)Ordered By: Ellen Gonzáles on 10-09-2022 Neutrophils/100 WBC (Bld) 71.7 % . [facility] No Panel InformationOrdered By: Rina Reardon on 10-09-2022 Estimated GFR () > 60 mL/Min [facility] Comment on above: GFR estimated refere nce range: According to KDOQI guidelines, <60 ml/min/1.73m2 is sufficient to diagnose a patient with chronic kidney disease. Pharmacy Creatinine Clearance (Chem N/A [facility] Nucleated erythrocytes [Pres ence] in Blood by Automated countOrdered By: Ellen Gonzáles on 10-09-2022 Nucleated RBC Auto Ql (Bld) 0.2 /100{WBC} 0-0.5 [facility] Platelet mean volume Auto (B ld) [Entitic vol]Ordered By: Ellen Gonzáles on 10-09-2022 Platelet mean volume (Bld) [Entitic vol] 8.7 fL 6.3-10.7 [facility] Platelets Auto (Bld) [#/Vol] Ordered By: Ellen Gonzáles on 10-09-2022 Platelets (Bld) [#/Vol] 329 10*3/uL 150-450 [facility] Potassium [Moles/volume] in Serum or PlasmaOrdered By: Rina Reardon on 10-09-2022 Potassium [Moles/Vol] 4.7 mmol/L 3.5-5.1 [facility] Protein [Mass/volume] in Ser um or PlasmaOrdered By: Rina Reardon on 10-09-2022 Protein [Mass/Vol] 5.9 g/dL 6.1-7.9 [facility] RBC Auto (Bld) [#/Vol]Ordere d By: Ellen Gonzáles on 10-09-2022 RBC (Bld) [#/Vol] 4.15 10*6/uL 3.60-5.00 [facility] Serum or plasma alanine [place] otransferase measurement without P-5'-P (enzymatic activiOrdered By: Rina Reardon on 10-09-2022 ALT No additional P-5'-P [Catalytic activity/Vol] 17 U/L 10-60 [facility] Serum or plasma albumin/glob ulin mass ratioOrdered By: Rina Reardon on 10-09-2022 Albumin/Globulin [Mass ratio] 1.6 {ratio} [facility] Serum or plasma anion gap de terminationOrdered By: Rina Reardon on 10-09-2022 Anion gap [Moles/Vol] 12.7 mmol/L 6.0-15.0 [facility] Serum or plasma high density lipoprotein (HDL) cholesterol measurementOrdered By: Rina Reardon on 10-09-2022 Cholesterol in HDL [Mass/Vol] 53 mg/dL 35-85 [facility] Comment on above: HDL CHOL ATP-III CLA SSIFICATION Cardiovascular RiskHDL > or equal to 60 mg/dL LOWHDL < 40 mg/dL HIGH Serum or plasma total choles terol/high density lipoprotein (HDL) cholesterol mass ratOrdered By: Rina Reardon on 10-09-2022 Cholesterol.total/Amy sterol in HDL [Mass ratio] 2.5 {ratio} <5.0 [facility] Sodium [Moles/volume] in Ser um or PlasmaOrdered By: Rina Reardon on 10-09-2022 Sodium [Moles/Vol] 141 mmol/L 136-146 [facility] Triglyceride [Mass/volume] i n Serum or PlasmaOrdered By: Rina Reardon on 10-09-2022 Triglyceride [Mass/Vol] 61 mg/dL 35-149 [facility] Comment on above: TRIG ATP III CLASSIF ICATIONTRIG less than 150 mg/dL NormalTRIG 150-199 mg/dL Borderline highTRIG 200-500 mg/dL High TRIG greater than 500 mg/dL Very highStandard traceable to the Center for Disease Conrtrol and Prevention (CDC) test method. Urea nitrogen [Mass/volume] in Serum or PlasmaOrdered By: Rina Reardon on 10-09-2022 Urea nitrogen [Mass/Vol] 9 mg/dL 04-28 [facility] WBC Auto (Bld) [#/Vol]Ordere d By: Ellen Gonzáles on 10-09-2022 WBC (Bld) [#/Vol] 8.8 10*3/uL 3.8-11.6 [facility] Laboratory - Hematology and Cell countsOrdered By: Noy Rivera on 05-23-2022 Nucleated RBC/100 WBC (Bld) [Ratio] 0.0 % 0-0.5 [facility] COVID Quick Testingon 2020 Result Negative [facility] [employer] Other Quick Fluon 06-24-2021 Quick Flu [facility] [employer] Other ED Note-Physicianon 08-28-19 ED Note-Physician Basic Information Time Seen: Angel Johnson PA-C 08/12/2020 15:02 Chief Complaint pt presents with genrealized pain for 5 days. pt verbalized has MS. Has appt with pallitive care in 1 month. pt vebralized bilateral eye swelling for 2 days History of Present Illness 49-year-old female comes into the ED for evaluation of generalized pain. She states for the last few days she has had diffuse pain and progressive weakness. She has a history of underlying multiple sclerosis. She states her symptoms have progressed to the point now that she is able to stand with a significant difficulty. She also has noted bilateral conjunctivitis with watery drainage. No loss of vision. No diplopia. No fever, chills, nausea, vomiting. No headache or altered mentation. No falls or injuries. Review of Systems A 10 point review of systems is negative except as noted above. Medical and Surgical History: Reviewed and noted Social history: Lives at home Tobacco: Denies Physical Exam Vitals & Measurements T: 36.8 ?C (Oral) HR: 58(Monitored) RR: 16 BP: 131/65 SpO2: 96% HT: 150.0 cm HT: 150 cm WT: 109.0 kg WT: 109 kg BMI: 48.44 Nurses notes and vital signs reviewed and patient is not hypoxic. General: Appears uncomfortable. Diffuse tenderness. Skin: Warm, dry, no pallor noted. Head: Atraumatic. Neck: No JVD. Eye: Bilateral conjunctivitis with watery drainage. There is slight chemosis on the right. No photophobia. Pupils equal and reactive at 4 mm. Extraocular motions are intact. Ears, Nose, Mouth, and Throat: Moist mucous membranes Cardiovascular: Strong distal pulses. Chest wall: Respiratory: Respirations are nonlabored. Lungs clear to auscultation. Back: Normal range of motion, no CVA tenderness. Musculoskeletal: Normal ROM with no gross deformity. Gastrointestinal: Soft and nontender. Urological: Neurological: Awake and alert. No focal deficits. Follows commands. GCS 15. Psychiatric: Cooperative. Medical Decision Making Exam is consistent with multiple sclerosis exacerbation. Laboratory studies reviewed and noted. She is started on IV steroids and given morphine for pain. Case was discussed the hospitalist for admission, however patient now wishes to leave AGAINST MEDICAL ADVICE. Patient states she cannot stay because she has to care for somebody at home. We did offer to have social media marketing analyst speak with her to help arrange other options, and she is not interested in this. A Covid test was recommended as well and she refused. She remains awake, alert, and competent make her own medical decisions. She will sign AMA paperwork. Assessment/Plan Multiple sclerosis exacerbation (G35: Multiple sclerosis) Orders: methylPREDNISolone + Sodium Chloride 0.9% intravenous solution 250 mL, 1,000 mg = 8 mL, Injection, IV Piggyback, Once, Stop date 08/12/20 15:09:00 EST, STAT, Start date 08/12/20 15:09:00 EST, 258 mL/hr, Infuse over 1 hour(s) morphine, 4 mg = 2 mL, Injection, IV Push, Once, Stop date 08/12/20 15:09:00 EST, STAT, Start date 08/12/20 15:09:00 EST ondansetron, 4 mg = 2 mL, Injection, IV Push, Once, Stop date 08/12/20 15:10:00 EST, STAT, Start date 08/12/20 15:10:00 EST Automated Diff Basic Metabolic Panel CBC w/ Auto Diff ED Physician consult Hospitalist for continued care eGFR Extra Blue Tube Rapid COVID Antigen ([facility]) Troponin 0 Hr. UA With Cult Reflex Medications Administered Given [id number] [F] 1000 mg + NS250 [F] 250 mL, IV Piggyback morphine 2 mg/mL Inj, 4 mg, IV Push Zofran 4 mg/2 mL Injection, 4 mg, IV Push Disposition Plan Patient Discharge Condition Patient leave AGAINST MEDICAL ADVICE patient seen and evaluated by the physician travel assistant. Attending physician was present in the emergency department and supervised care. This report was transcribed using voice recognition software. Every effort was made to ensure accuracy, however, inadvertently computerized home appliance washing machine mechanic mistakes may be present. Appropriate healthcare PPE was used in evaluating this patient. The patient was placed in a mask. The healthcare provider was wearing mask, gloves, googles and utilizing proper hand hygiene. All equipment was properly cleansed. Discharge Prescription List Prescriptions No active prescription medications Follow-up With When Contact Information Arturo Dillard In 3 days 08/15/2020 EST [facility] [address] [place] [address]- Business (1) [address] [place] [address]- Business (1) Additional Instructions: ROBE MCKEON In 3 days 08/15/2020 EST [address] [place] [address]- Business (1) Additional Instructions: Patient Education Multiple Sclerosis Problem List/Past Medical History Ongoing Smoker Historical None Procedure/Surgical History delivery, None. Medications Inpatient No active inpatient medications Home Lidoderm 5% Patch, 1 patch(es), Topical, Daily, Not taking: no longer takes per patient JRuby Leroy 325 mg-5 mg oral tablet, 1 tab(s), Oral, TID, PRN, Not taking: no longer takes per patient JRuby Tylenol with Codeine #3 oral tablet, 1 tab(s), Oral, q6hr, PRN, Still taking, not as prescribed: as needed per patient JRuby Valium 5 mg Tab, 5 mg= 1 tab(s), Oral, BID, Not taking: no longer takes per patient JRuby Allergies NSAIDs (hives) traMADol (seziure) Social History Alcohol - Denies Alcohol Use, 08/03/2019 Substance Abuse - Denies Substance Abuse, 08/03/2019 Tobacco - Denies Tobacco Use, 08/03/2019 5-9 cigarettes (between 1/4 to 1/2 pack)/day in last 30 days Tobacco Use:., 08/12/2020 Lab Results WBC: 7.8 E9/L (08/12/20 13:47:00) RBC: 4.4 E12/L (08/12/20 13:47:00) Hgb: 12.8 gm/dL (08/12/20 13:47:00) Hct: 40 % (08/12/20 13:47:00) MCV: 92 fL (08/12/20 13:47:00) MCH: 29.4 pg (08/12/20 13:47:00) MCHC: 31.9 gm/dL (08/12/20 13:47:00) RDW: 14.6 % High (08/12/20 13:47:00) Platelet: 319 E9/L (08/12/20 13:47:00) MPV: 8.5 fL (08/12/20 13:47:00) Neutro Auto: 76.4 % High (08/12/20 13:47:00) Lymph Auto: 10.6 % Low (08/12/20 13:47:00) [place] Auto: 9.5 % (08/12/20 13:47:00) Eos Auto: 3.1 % (08/12/20 13:47:00) Basophil Auto: 0.4 % (08/12/20 13:47:00) Neutro Absolute: 6 E9/L (08/12/20 13:47:00) Lymph Absolute: 0.8 E9/L Low (08/12/20 13:47:00) [place] Absolute: 0.7 E9/L (08/12/20 13:47:00) Eos Absolute: 0.2 E9/L (08/12/20 13:47:00) Basophil Absolute: 0 E9/L (08/12/20 13:47:00) Glucose Lvl: 87 mg/dL (08/12/20 13:47:00) BUN: 11 mg/dL (08/12/20 13:47:00) Creatinine: 0.6 mg/dL (08/12/20 13:47:00) eGFR: >60 (08/12/20 13:47:00) eGFR AA: >60 (08/12/20 13:47:00) BUN/Creat Ratio: 18 (08/12/20 13:47:00) Sodium Lvl: 139 mmol/L (08/12/20 13:47:00) Potassium Lvl: 3.8 mmol/L (08/12/20 13:47:00) Chloride: 107 mmol/L (08/12/20 13:47:00) CO2: 25 mmol/L (08/12/20 13:47:00) AGAP: 11 mEq/L (08/12/20 13:47:00) Calcium Lvl: 8.6 mg/dL Low (08/12/20 13:47:00) Troponin: 3.7 pg/mL Low (08/12/20 13:47:00) Diagnostic Results No qualifying data available. Normal [facility] Comment on above: Result Comment: Elec tronically Signed By: Angel Johnson PA-C\.br\Date and Time Signed: 08/12/20 16:52 EST\.br\Electronically Co-Signed By: Wisam Russell MD\.br\Date and Time Co-Signed: 08/28/20 08:45 EST Coding Summary.on 08-13-2020 Coding Summary. CODING DATE: 08/13/2020 FINAL [facility] DSC STATUS: Left Against Medical Advice PAYOR: Medicaid EAPG DESCRIPTION 0999 UNASSIGNED ADMIT DX: REASON FOR VISIT DX: R52 Pain, unspecified R53.1 Weakness FINAL DX: PRINCIPAL: G35 Multiple sclerosis SECONDARY: Z53.20 Procedure and treatment not carried out because of patient's decision for unspecified reasons H10.9 Unspecified conjunctivitis H11.421 Conjunctival edema, right eye F17.210 Nicotine dependence, cigarettes, uncomplicated PYMT PROC EAPG STAT DESCRIPTION DOCTOR NAME DATE NOTE: The code number assigned matches the documented diagnosis and / or procedure in the patient's chart. However, the narrative phrase printed from the coding software may appear abbreviated, or result in slightly different terminology. Revised Coded By: Eboni Patel Revised Date Saved: 08/13/2020 10:47 am Normal [facility] Auto Diffon 08-12-2020 Basophils/100 WBC (Bld) 0.4 % Normal 0.0-2.0 F [facility] Comment on above: Order Comment: Order Added by Discern Expert. Performed By: #### 2 504191, [id number], [id number], 7207846, [id number] #### [facility] [address] [place] [address] Basophils/Leukocytes Auto (Bld) [Pure # fraction] 0.0 E9/L Normal 0.0-0.2 [facility] Comment on above: Order Comment: Order Added by Discern Expert. Performed By: #### 2 139459, 5915415, 24832472, 7338231, [id number] #### [facility] [address] [place] [address] Eosinophils/100 WBC (Bld) 3.1 % Normal 0.0-8.0 [facility] Comment on above: Order Comment: Order Added by Alex Expert. Performed By: #### 2 686117, 2712833, 08387386, 6423324, 51604474 #### [facility] [address] [place] [address] Eosinophils/Leukocytes Auto (Bld) [Pure # fraction] 0.2 E9/L Normal 0.0-0.5 [facility] Comment on above: Order Comment: Order Added by Alex Expert. Performed By: #### 2 116412, 3606759, 87048093, 8635680, 15398742 #### [facility] [address] [place] [address] Lymphocytes/100 WBC (Bld) 10.6 % Low 14.0-50.0 [facility] Comment on above: Order Comment: Order Added by Discern Expert. Performed By: #### 2 663789, 0391631, 39199917, 7298008, 03334558 #### [facility] [address] [place] [address] Lymphocytes/Leukocytes Auto (Bld) [Pure # fraction] 0.8 E9/L Low 1.0-4.0 [facility] Comment on above: Order Comment: Order Added by Discern Expert. Performed By: #### 2 391971, 2727607, 04092473, 1577534, 62984111 #### [facility] [address] [place] [address] Monocytes/100 WBC (Bld) 9.5 % Normal 4.0-14.0 [facility] Comment on above: Order Comment: Order Added by Discern Expert. Performed By: #### 2 725875, 1062533, 69226389, 5835462, 07828491 #### [facility] [address] [place] [address] Monocytes/Leukocytes Auto (Bld) [Pure # fraction] 0.7 E9/L Normal 0.2-1.0 [facility] Comment on above: Order Comment: Order Added by Discern Expert. Performed By: #### 2 560943, 8418083, 07390658, 8785539, 99028529 #### [facility] [address] [place] [address] Neutrophils/100 WBC (Bld) 76.4 % High 36.0-75.0 [facility] Comment on above: Order Comment: Order Added by Discern Expert. Performed By: #### 2 268188, 9092356, 15966061, 7602677, 81464641 #### [facility] [address] [place] [address] Neutrophils/Leukocytes Auto (Bld) [Pure # fraction] 6.0 E9/L Normal 2.0-7.5 [facility] Comment on above: Order Comment: Order Added by Discern Expert. Performed By: #### 2 176802, 3708129, 39086718, 0077332, 30053045 #### [facility] [address] [place] [address] BMPon 08-12-2020 Creatinine [Mass/Vol] 0.6 mg/dL Normal 0.5-1.3 [facility] Comment on above: Performed By: #### 2 987123, 5733942, 53188354, 0433905, 86114174 #### [facility] [address] [place] [address] Urea nitrogen [Mass/Vol] 11 mg/dL Normal 5-21 [facility] Comment on above: Performed By: #### 2 555711, 1041229, 74144817, 5945314, 50340877 #### [facility] [address] [place] [address] Urea nitrogen/Creatinine [Mass ratio] 18 No Units Normal 10-20 [facility] Comment on above: Performed By: #### 2 764454, 7135617, 76142910, 8214257, 03403422 #### [facility] [address] [place] [address] Anion gap [Moles/Vol] 11 mmol/L Normal 6-16 [facility] Comment on above: Performed By: #### 2 243212, 7097316, 43513040, 9613252, 37807334 #### [facility] [address] [place] [address] Calcium [Mass/Vol] 8.6 mg/dL Low 8.9-11.1 [facility] Comment on above: Performed By: #### 2 956832, 6985663, 93452686, 4137105, 76665877 #### [facility] [address] [place] [address] Chloride [Moles/Vol] 107 mmol/L Normal 101-111 [facility] Comment on above: Performed By: #### 2 984722, 1911678, 24944406, 5966935, 67739989 #### [facility] [address] [place] [address] CO2 [Moles/Vol] 25 mmol/L Normal 21-31 [facility] Comment on above: Performed By: #### 2 065951, 1467358, 56167887, 9260847, 98642098 #### [facility] [address] [place] [address] Glucose [Mass/Vol] 87 mg/dL Normal 55-199 [facility] Comment on above: Result Comment: If t his glucose result represents a fasting glucose, interpretation should refer to the following reference range: 55-99 mg/dL Performed By: #### 2 642104, 2777864, 48177353, 0584611, 91360531 #### [facility] [address] [place] [address] Potassium [Moles/Vol] 3.8 mmol/L Normal 3.5-5.3 [facility] Comment on above: Performed By: #### 2 099465, 8296930, 26544886, 9830499, 69320267 #### [facility] [address] [place] [address] Sodium [Moles/Vol] 139 mmol/L Normal 135-145 [facility] Comment on above: Performed By: #### 2 587884, 6084580, 32847570, 8537158, 79769229 #### [facility] [address] [place] [address] CBC w/ Auto Diffon 1 Erythrocyte distribution width (RBC) [Ratio] 14.6 % High 10.9-14.2 [facility] Comment on above: Performed By: #### 2 898056, 7017273, 88890708, 7272788, 24807058 #### [facility] [address] [place] [address] Hematocrit (Bld) [Volume fraction] 40.0 % Normal 34.0-46.0 [facility] Comment on above: Performed By: #### 2 398691, 3288109, 49075752, 5764063, 98965912 #### [facility] [address] [place] [address] Hemoglobin (Bld) [Mass/Vol] 12.8 g/dL Normal 12.0-16.0 [facility] Comment on above: Performed By: #### 2 762044, 9402728, 31048545, 3976139, 34419595 #### [facility] [address] [place] [address] MCH (RBC) [Entitic mass] 29.4 pg Normal 27.0-34.0 [facility] Comment on above: Performed By: #### 2 313799, 6224157, 87357986, 0964814, 49829556 #### [facility] [address] [place] [address] MCHC (RBC) [Mass/Vol] 31.9 g/dL Normal 31.4-36.0 [facility] Comment on above: Performed By: #### 2 004788, 8608139, 15800063, 2159551, 92085310 #### [facility] [address] [place] [address] MCV (RBC) [Entitic vol] 92.0 fL Normal 80.0-100.0 F [facility] Comment on above: Performed By: #### 2 385762, 6963572, 06691604, 3576757, 46234135 #### [facility] [address] [address]394[address] Platelet mean volume (Bld) [Entitic vol] 8.5 fL Normal 6.4-10.8 [facility] Comment on above: Performed By: #### 2 364514, 5636599, 10343833, 5580229, 32706253 #### [facility] [address] [place] [address] Platelets (Bld) [#/Vol] 319.0 E9/L Normal 150.0-500.0 [facility] Comment on above: Performed By: #### 2 477161, 7265332, 83543200, 0243601, 78180079 #### [facility] [address] [place] [address] RBC (Bld) [#/Vol] 4.4 E12/L Normal 4.3-5.9 [facility] Comment on above: Performed By: #### 2 896318, 5486966, 46102416, 1014556, 49325188 #### [facility] [address] [place] [address] WBC corrected for nucl RBC Auto (Bld) [#/Vol] 7.8 E9/L Normal 4.0-11.0 [facility] Comment on above: Performed By: #### 2 192360, 7736444, 14952777, 4619890, 93525119 #### [facility] [address] [place] [address] Consent To Leave AMAon 08-12 Consent To Leave AMA [id number]:127 Normal [facility] Discharge Instructionson Discharge Instructions [id number]:127 Normal [facility] ED Clinical Summaryon 2020 ED Clinical Summary [address] [address] ED Clinical Summary Person Information Name: BRYAN CRUZ/[facility] Age: 49 Years : 1970 Sex: Female Language: Indonesian PCP: ROBE MCKEON CNP Marital Status: Single Phone: Visit Id: Visit Reason: Eye problem; Generalized pain; PAIN Speciality: Acuity: 3 Enc Type: Emergency Med Service: Emergency Arrival: 08/12/2020 13:00:09 Discharge: 08/12/2020 16:44:31 LOS: 000 03:44 Checkin: 08/12/2020 13:00:09 Checkout: 08/12/2020 16:44:31 Dispo Type: Left Against Medical Advice EVENTS: Event Name Event Status Request Date/Time Start Date/Time Complete Date/Time Arrive Complete 08/12/2020 13:00:09 08/12/2020 13:00:09 08/12/2020 13:00:09 Document Home Meds Complete 08/12/2020 13:00:09 08/12/2020 16:19:28 08/12/2020 16:19:28 Triage Complete 08/12/2020 13:00:09 08/12/2020 13:13:39 08/12/2020 13:13:39 Isolation Screening Request 08/12/2020 13:13:40 Pending Labs Request 08/12/2020 13:22:39 Lab Request 08/12/2020 13:22:39 Urine Collect Request 08/12/2020 13:22:39 Pending Labs Complete 08/12/2020 13:51:21 08/12/2020 13:51:21 08/12/2020 14:45:33 Lab Complete 08/12/2020 13:51:21 08/12/2020 13:51:21 08/12/2020 14:45:33 Pending Labs Complete 08/12/2020 13:58:35 08/12/2020 13:58:35 08/12/2020 13:58:42 Lab Complete 08/12/2020 13:58:35 08/12/2020 13:58:35 08/12/2020 13:58:42 Pending Labs Complete 08/12/2020 14:36:13 08/12/2020 14:36:13 08/12/2020 14:36:13 Bed Assign Complete 08/12/2020 14:56:52 08/12/2020 14:56:52 08/12/2020 14:56:52 Dr Exam Complete 08/12/2020 14:56:52 08/12/2020 15:02:18 08/12/2020 15:02:18 RN Exam Complete 08/12/2020 14:56:52 08/12/2020 15:07:53 08/12/2020 15:07:53 Registration Complete 08/12/2020 15:02:18 08/12/2020 15:14:23 08/12/2020 15:14:23 Consult Request 08/12/2020 15:10:17 Meds Admin Complete 08/12/2020 15:10:23 08/12/2020 15:26:33 Hospitalist Consult Request 08/12/2020 15:10:24 Reg Complete Request 08/12/2020 15:14:23 Reg Bed Request Complete 08/12/2020 15:14:23 08/12/2020 15:14:23 08/12/2020 15:14:23 Pending Labs Inlab 08/12/2020 16:16:37 Lab Inlab 08/12/2020 16:16:37 Dr Exam Complete 08/12/2020 16:36:33 08/12/2020 16:36:33 08/12/2020 16:36:33 Registration Request 08/12/2020 16:36:33 Discharge Complete 08/12/2020 16:37:22 08/12/2020 16:44:43 08/12/2020 16:44:43 Transfer Complete 08/12/2020 16:44:43 08/12/2020 16:44:43 08/12/2020 16:44:43 ADDRESS: [address] [facility] [address] PHYS DOC NOTES: MEDICAL INFORMATION: Prescriptions Given: Medications to Continue with No Changes Other Medications acetaminophen-codeine (Tylenol with Codeine #3 oral tablet) 1 Tablets By Mouth every 6 hours as needed for pain. Refills: 0. acetaminophen-hydroco done (Leroy 325 mg-5 mg oral tablet) 1 Tablets By Mouth 3 times a day as needed for pain. Refills: 0. diazepam (Valium 5 mg Tab) 1 Tablets By Mouth 2 times a day. Refills: 0. lidocaine topical (Lidoderm 5% Patch) 1 Patches Topical every day. apply 12 hours on and 12 hours off daily. Refills: 0. PATIENT EDUCATION INFORMATION: Instructions: Multiple Sclerosis Follow up: With: Address: When: Arturo Dillard [facility], [address] [place] [address] [employer] (1) [address] [place] [address] [employer] (1) In 3 days 08/15/2020 With: Address: When: ROBE MCKEON [address] [place] [address] [employer] (1) In 3 days 08/15/2020 DIAGNOSIS: Multiple sclerosis exacerbation Normal [facility] ED Patient Education Noteon 08-12-2020 ED Patient Education Note Family Medicine Multiple Sclerosis Multiple sclerosis (MS) is a disease of the central nervous system. It leads to the loss of the insulating covering of the nerves (myelin sheath) of your brain. When this happens, brain signals do not get sent properly or may not get sent at all. The age of onset of MS varies. CAUSES The cause of MS is unknown. However, it is more common in the northern [place] than in the southern [place]. RISK FACTORS There is a higher number of women with MS than men. MS is not an illness that is passed down to you from your family members (inherited). However, your risk of MS is higher if you have a relative with MS. SIGNS AND SYMPTOMS The symptoms of MS occur in episodes or attacks. These attacks may last weeks to months. There may be long periods of almost no symptoms between attacks. The symptoms of MS vary. This is because of the many different ways it affects the central nervous system. The main symptoms of MS include: ? Vision problems and eye pain. ? Numbness. ? Weakness. ? Inability to move your arms, hands, feet, or legs (paralysis). ? Balance problems. ? Tremors. DIAGNOSIS Your health care provider can diagnose MS with the help of imaging exams and lab tests. These may include specialized X-ray exams and spinal fluid tests. The best imaging exam to confirm a diagnosis of MS is an MRI. TREATMENT There is no known cure for MS, but there are medicines that can decrease the number and frequency of attacks. Steroids are often used for short-term relief. Physical and occupational therapy may also help. There are also many new alternative or complementary treatments available to help control the symptoms of MS. Ask your health care provider if any of these other options are right for you. HOME CARE INSTRUCTIONS ? Take medicines as directed by your health care provider. ? Exercise as directed by your health care provider. SEEK MEDICAL CARE IF: You begin to feel depressed. SEEK IMMEDIATE MEDICAL CARE IF: ? You develop paralysis. ? You have problems with bladder, bowel, or sexual function. ? You develop mental changes, such as forgetfulness or mood swings. ? You have a period of uncontrolled movements (seizure). Document Released: 07/20/2001 Document Revised: 07/28/2014 Document Reviewed: 03/30/2014 ExitCare? Patient Information ?2015 [employer]. This information is not intended to replace advice given to you by your health care provider. Make sure you discuss any questions you have with your health care provider. Normal [facility] ED Patient Summaryon 021 ED Patient Summary [address] [address] Patient Discharge Instructions Person Information Name: BRYAN CRUZ Age: 49 Years Arrival Date: 08/12/2020 13:00:09 Discharge Diagnosis: Multiple sclerosis exacerbation Primary Care Physician: ROBE MCKEON CNP Provider Information Primary Provider: Wisam Russell MD Advanced Epic Application Coordinator:Agnel Johnson PA-C The exam and treatment you received in the Emergency Department were for an urgent problem and are not intended as complete care. It is important that you follow up with a doctor, nurse practitioner, or physician?s travel assistant for ongoing care. If your symptoms become worse or you do not improve as expected and you are unable to reach your usual health care provider, you should return to the Emergency Department. We are available 24 hours a day. BRYAN CRUZ has been given the following list of patient education materials, prescriptions and follow-up instructions: Follow-up Instructions: With: Address: When: Arturo Dillard [facility], [address] [place] [address] Business (1) [address] [place] [address] Business (1) In 3 days 08/15/2020 With: Address: When: ROBE MCKEON [address] [place] [address] Business (1) In 3 days 08/15/2020 In the event that this physician does not participate in your insurance network, please consult with your insurance company to find a nearby participating provider. Patient Education Materials: Multiple Sclerosis A MESSAGE TO ALL PATIENTS REGARDING OPIOIDS PRESCRIPTION OPIOIDS: WHAT YOU NEED TO KNOW Prescription opioids can be used to help relieve unphowsl-kv-bzlfis pain and are often prescribed following a surgery or injury, or for certain health conditions. These medications can be an important part of the treatment but also come with serious risks. It is important to work with your healthcare provider to make sure you are getting the safest, most effective care. WHAT ARE THE RISKS AND SIDE EFFECTS OF OPIOID USE? Prescription opioids carry serious risks of addiction and overdose, especially with prolonged use. An opioid overdose, often marked by slowed breathing, can cause sudden . The use of prescription opioids can have a number of side effects as well, even when taken as directed: ? Tolerance?meaning you might need to take more of the medication for the same pain relief ? Physical dependence?meaning you have symptoms of withdrawal when a medication is stopped ? Increased sensitivity to pain ? Constipation ? Nausea, vomiting, and dry mouth ? Sleepiness and dizziness ? Confusion ? Depression ? Low levels of testosterone that can result in lower sex drive, energy, and strength ? Itching and sweating RISKS ARE GREATER WITH: ? History of drug misuse, substance use disorder, or overdose ? Mental health conditions (such as depression or anxiety) ? Sleep apnea ? Older age (65 years and older) ? Avoid alcohol while taking prescription opioids. Also, unless specifically advised by your health care provider, medications to avoid include: ? Benzodiazepines (such as Xanax or Valium) ? Muscle relaxants (such as Soma or Flexeril) ? Hypnotics (such as Ambien or Lunesta) ? Other prescription opioids KNOW YOUR OPTIONS Talk to your health care provider about ways to manage your pain that don?t involve prescription opioids. Some of these options may actually work better and have fewer risks and side effects. Options may include: ? Pain relievers such as acetaminophen, ibuprofen, and naproxen ? Some medication that are also used for depression or seizures ? Physical therapy and exercise ? Cognitive behavioral therapy, a psychological, goal-directed approach, in which patients learn how to modify physical, behavioral, and emotional triggers of pain and stress. IF YOU ARE PRESCRIBED OPIOIDS FOR PAIN: ? Never take opioids in greater amounts or more often than prescribed. ? Follow up with your primary health care provider. o Work together to create a plan on how to manage your pain. o Talk about ways to help manage your pain that don?t involve prescription opioids. o Talk about any and all concerns and side effects. ? Help prevent misuse and abuse o Never sell or share prescription opioids. o Never use another person?s prescription opioids. ? Store prescription opioids in a secure place and out of reach of others (this may include visitors, children, friends, and family). ? Safely dispose of unused prescription opioids: Find your community drug take-back program or your pharmacy mail-back program, or flush them down the toilet, following guidance from the Food and Drug Administration (www.fda.gov/Drugs/Re sourcesForYou). ? Visit www.cdc.gov/drugoverd ose to learn about the risks of opioids abuse and overdose. ? If you believe you may be struggling with addiction, tell your health care connector and ask for guidance or call [facility]S National Helpline at 3-918-968-HELP. v Source: US Department of Health and Human Services/Center for Disease Control & Prevention [facility] Medications Given: Medication Dose Route methylPREDNISolone 1000.00 mg IV Piggyback Right Antecubit Edita morphine 4.00 mg IV Push Right Antecubit Chester ondansetron 4.00 mg IV Push Right Antecubit [place] Medication Information: Medications to Continue with No Changes Other Medications acetaminophen-codeine (Tylenol with Codeine #3 oral tablet) 1 Tablets By Mouth every 6 hours as needed for pain. Refills: 0. acetaminophen-hydroco done (Leroy 325 mg-5 mg oral tablet) 1 Tablets By Mouth 3 times a day as needed for pain. Refills: 0. diazepam (Valium 5 mg Tab) 1 Tablets By Mouth 2 times a day. Refills: 0. lidocaine topical (Lidoderm 5% Patch) 1 Patches Topical every day. apply 12 hours on and 12 hours off daily. Refills: 0. Comment: Pharmacy Information: You may receive a survey from [employer] asking you to rate your care experience. Your feedback is important and will help us understand what we do well and how we can improve the quality of care we provide to you, your loved ones and our community. It?s an honor to serve you. Thank you for choosing [facility] Patient Education Materials: Multiple Sclerosis Multiple sclerosis (MS) is a disease of the central nervous system. It leads to the loss of the insulating covering of the nerves (myelin sheath) of your brain. When this happens, brain signals do not get sent properly or may not get sent at all. The age of onset of MS varies. CAUSES The cause of MS is unknown. However, it is more common in the northern [place] than in the southern [place]. RISK FACTORS There is a higher number of women with MS than men. MS is not an illness that is passed down to you from your family members (inherited). However, your risk of MS is higher if you have a relative with MS. SIGNS AND SYMPTOMS The symptoms of MS occur in episodes or attacks. These attacks may last weeks to months. There may be long periods of almost no symptoms between attacks. The symptoms of MS vary. This is because of the many different ways it affects the central nervous system. The main symptoms of MS include: ? Vision problems and eye pain. ? Numbness. ? Weakness. ? Inability to move your arms, hands, feet, or legs (paralysis). ? Balance problems. ? Tremors. DIAGNOSIS Your health care provider can diagnose MS with the help of imaging exams and lab tests. These may include specialized X-ray exams and spinal fluid tests. The best imaging exam to confirm a diagnosis of MS is an MRI. TREATMENT There is no known cure for MS, but there are medicines that can decrease the number and frequency of attacks. Steroids are often used for short-term relief. Physical and occupational therapy may also help. There are also many new alternative or complementary treatments available to help control the symptoms of MS. Ask your health care provider if any of these other options are right for you. HOME CARE INSTRUCTIONS ? Take medicines as directed by your health care provider. ? Exercise as directed by your health care provider. SEEK MEDICAL CARE IF: You begin to feel depressed. SEEK IMMEDIATE MEDICAL CARE IF: ? You develop paralysis. ? You have problems with bladder, bowel, or sexual function. ? You develop mental changes, such as forgetfulness or mood swings. ? You have a period of uncontrolled movements (seizure). Document Released: 07/20/2001 Document Revised: 07/28/2014 Document Reviewed: 03/30/2014 ExitCare? Patient Information ?2015 [employer]. This information is not intended to replace advice given to you by your health care provider. Make sure you discuss any questions you have with your health care provider. NANCY Martinez YASHICKA , have received the following patient education materials/instruction s and have verbalized understanding: Patient Education Materials: Multiple Sclerosis Follow-up Instructions: With: Address: When: [facility] [address] [place] [address] Business (1) [address] [place] [address] Business (1) In 3 days 08/15/2020 With: Address: When: ROBE LINDA [address] [place] [address] Business (1) In 3 days 08/15/2020 Patient Signature Date Clinician/Nurse Signature Date 08/12/2020 16:44:45 Normal [facility] Rapid COVID Antigen ([facility])on 08-12-2020 Rapid COV Int NEG Ctl Pass Normal [facility] Comment on above: Performed By: #### 2 [id number] #### [facility] [address] [id number] Rapid COV Int POS Ctl Pass Normal [facility] Comment on above: Performed By: #### 2 [id number] #### [facility] [address] [id number] Rapid COVID Ag Not Detected Normal Not Detected [facility] Comment on above: Result Comment: The BD Veritor? System for Rapid Detection of SARS-CoV-2 is a chromatographic digital immunoassay intended for the direct and qualitative detection of SARS-CoV-2 nucleocapsid antigens in nasal swabs from individuals who are suspected of COVID-19 by their healthcare provider within the first five days of the onset of symptoms. Negative results should be treated as presumptive, do not rule out SARS-CoV-2 infection and should not be used as the sole basis for treatment or patient management decisions, including infection control decisions. Negative results should be considered in the context of a patient?s recent exposures, history and the presence of clinical signs and symptoms consistent with COVID-19, and confirmed with a molecular assay, if necessary, for patient management. For in vitro diagnostic use. In the [place], only for use under an Emergency Use Authorization. In the [place], this test has not been FDA cleared or approved; this test has been authorized by FDA under an EUA for use by authorized laboratories; use by laboratories certified under the CLIA, 42 U.S.C. ?263a, that meet requirements to perform moderate, high, or waived complexity tests and at the Point of Care (POC), i.e., in patient care settings operating under a CLIA Certificate of Waiver, Certificate of Compliance, or Certificate of Accreditation. This test has been authorized only for the detection of proteins from SARS-CoV-2, not for any other viruses or pathogens; and, in the [place], this test is only authorized for the duration of the declaration that circumstances exist justifying the authorization of emergency use of in vitro diagnostics for detection and/or diagnosis of the virus that causes COVID-19 under Section 564(b)(1) of the Act, 21 U.S.C. ? 360bbb-3(b)(1), unless the authorization is terminated or revoked sooner. Performed By: #### 2 [id number] #### [facility] [address] [place] [address] Employed in Healthcare NO Normal [facility] Comment on above: Performed By: #### 2 [id number] #### [facility] [address] [place] [address] First Test Unknown Normal [facility] Comment on above: Performed By: #### 2 [id number] #### [facility] [address] [place] [address] Hospitalized? YES Normal [facility] Comment on above: Performed By: #### 2 [id number] #### [facility] [address] [place] [address] ICU NO Normal [facility] Comment on above: Performed By: #### 2 [id number] #### [facility] [address] [place] [address] ? NO Normal [facility] Comment on above: Performed By: #### 2 [id number] #### [facility] [address] [place] [address] Resides in a Congrega Care Setting NO Normal [facility] Comment on above: Performed By: #### 2 [id number] #### [facility] [address] [place] [address] Symptomatic as defined by CDC YES Normal [facility] Comment on above: Performed By: #### 2 [id number] #### [facility] [address] [place] [address] Troponin 0 Hr.on 08-12-2020 Troponin I.cardiac [Mass/Vol] 3.70 pg/mL Low 10.10-27.10 [facility] Comment on above: Result Comment: The 95% CI (Confidence Interval) PPV (Positive Predictive Value) for myocardial infarction in females is 38 pg/mL, in males 51 pg/mL. The results should be used in conjunction with clinical conditions of myocardial infarction. (Access High Sensitivity Troponin I Instructions For Use, [employer], March 2018) Performed By: #### 2 [id number] #### [facility] [address] [place] [address] eGFRon 08-12-2020 GFR/1.73 sq M predicted among blacks MDRD (S/P/Bld) [Vol rate/Area] mL/min/{1.73_m2} Normal >=59 [facility] Comment on above: Order Comment: Order added by Discern Expert. Result Comment: eGFR is race adjusted. AA=. Performed By: #### 2 [id number], [id number], [id number] ####[facility] [address] [place] [address] GFR/1.73 sq M predicted among non-blacks MDRD (S/P/Bld) [Vol rate/Area] mL/min/{1.73_m2} Normal >=59 [facility] Comment on above: Order Comment: Order added by Discern Expert. Result Comment: Travel Sales Consultant peggy kidney disease could be indicated at eGFR's of less than 60 mL/min/1.73m2. Kidney failure is indicated at less than 15 mL/min/1.73m2. Performed By: #### 2 [id number] ####[facility] [address] [place] [address] ED Note-Physicianon 01-27-20 ED Note-Physician Basic Information Time Seen: Lavon Lyon PA-C 01/25/2020 17:01 Chief Complaint Neck injury in July, recent MRI in last 2 weeks, unkown results. Woke this AM with increased pain in neck. Took ES tylenol [employer]. C/o numbness in left arm, not new. History of Present Illness Obese 49-year-old -[place] female who presents to the emergency department the chief complaint of pain. Patient states that in July of this past year she was putting a duffel bag strap around her neck when she felt something pop. Patient states that she has had plain film x-rays, CAT scan of her neck, and last week had an MRI of her neck but continues to have pain. She states that she has seen card painter, and that they wanted to do injections in her neck but she is fearful and has not started this treatment. She continues to have pain with movement of her neck, denies radiculopathy. She denies any fevers, chills, she denies new injury. She states that the pain is principally around the base of C7 that extends into the bilateral trapezius musculature. She denies any weakness, numbness, tingling, denies other complaints at this time. Review of Systems A 10 point review of systems is negative except as noted above. Medical and Surgical History: Reviewed and noted Social history: Lives at home Tobacco: Denies Physical Exam Vitals & Measurements T: 37 ?C (Oral) HR: 60(Peripheral) RR: 18 BP: 160/82 SpO2: 100% HT: 152 cm WT: 107 kg BMI: 46.31 General: Alert and oriented, No acute distress, Comfortable in bed. Eye: Pupils are equal, round and reactive to light, Extraocular movements are intact. HENT: Normocephalic. Neck: Supple, Non-tender, No jugular venous distention. Respiratory: Respirations are non-labored, Symmetrical chest wall expansion, No chest wall tenderness, no wheezing rhonchi rales or rubs noted.. Cardiovascular: Normal rate, Regular rhythm, Good pulses equal in all extremities. Gastrointestinal: Soft, Non-tender, Non-distended, Normal bowel sounds. Musculoskeletal: Limited range of motion to forward flexion of the neck along with lateral rotation to the right and the left. There is no point tenderness with firm palpation to the cervical, thoracic or lumbar vertebral bodies. Neurologic: Alert, Oriented, Normal sensory, Normal motor function. Cognition and Speech: Oriented, Speech clear and coherent. Psychiatric: Cooperative, Appropriate mood & affect. Integumentary: Warm, Dry, [place] Medical Decision Making CT and MRI results were obtained from [facility], these were reviewed and these were scanned into the patient's chart. Patient has an appointment this week with neurology, she will be given an intramuscular injection of Kenalog along with a muscle relaxer, she is to follow-up with her neurologist for definitive care, return should new problems develop or other problems arise. Assessment/Plan 1. Chronic cervical pain (M54.2: Cervicalgia) Medications Administered Given Kenalog 40 mg Injection, 40 mg, IntraMuscular LORazepam 2 mg/mL Inj, 1 mg, IntraMuscular Disposition Plan Patient Discharge Condition Improved Discharge Disposition Discharge home Discharge Prescription List Prescriptions Robaxin-750 oral tablet, 750 mg= 1 tab(s), Oral, TID Follow-up With When Contact Information Alexa Gomez In 3 days 01/28/[address] [place] [address]- Business (1) Additional Instructions: Follow-up with your specialist, keep your appointment on . Use the muscle relaxers to help with the muscle spasm. Patient Education Facet Joint Block Radicular Pain Attestation Patient was treated and evaluated by the Physician Instructional Interventionist. The attending physician was in the Emergency Department at all times and supervised care. The case was discussed with the attending physician and diagnostics were reviewed as needed. Problem List/Past Medical History Ongoing Smoker Historical None Procedure/Surgical History delivery, None. Medications Inpatient No active inpatient medications Home Lidoderm 5% Patch, 1 patch(es), Topical, Daily Leroy 325 mg-5 mg oral tablet, 1 tab(s), Oral, TID, PRN Robaxin-750 oral tablet, 750 mg= 1 tab(s), Oral, TID Tylenol with Codeine #3 oral tablet, 1 tab(s), Oral, q6hr, PRN Valium 5 mg Tab, 5 mg= 1 tab(s), Oral, BID Allergies NSAIDs (hives) traMADol (seziure) Social History Alcohol - Denies Alcohol Use, 08/03/2019 Substance Abuse - Denies Substance Abuse, 08/03/2019 Tobacco - Denies Tobacco Use, 08/03/2019 Lab Results No qualifying data available. Diagnostic Results No qualifying data available. [facility] Comment on above: Result Comment: Elec tronically Signed By: Lavon Lyon PA-C\.br\Date and Time Signed: 01/26/20 09:11 EDT\.br\Electronically Co-Signed By: Alesha Guzmán DO\.br\Date and Time Co-Signed: 01/27/20 10:04 EDT Coding Summary.on 01-26-2020 Coding Summary. CODING DATE: 01/26/2020 FINAL [facility] DSC STATUS: Home (Routine DC) PAYOR: Medicaid EA DESCRIPTION 0496 MINOR PHARMACOTHERAPY ADMIT DX: REASON FOR VISIT DX: M54.2 Cervicalgia FINAL DX: PRINCIPAL: G89.29 Other chronic pain SECONDARY: M54.2 Cervicalgia E66.9 Obesity, unspecified Z68.42 Body mass index (BMI) 45.0-49.9, adult PYMT PROC EAPG STAT DESCRIPTION DOCTOR NAME DATE NOTE: The code number assigned matches the documented diagnosis and / or procedure in the patient's chart. However, the narrative phrase printed from the coding software may appear abbreviated, or result in slightly different terminology. Coded By: Eboni Patel Date Saved: 01/26/2020 09:23 am [facility] Discharge Instructionson Discharge Instructions [id number] 1.00CD:127 [facility] Consent for Treatmenton 01-05 Consent for Treatment [id number] .00CD:127 Normal [facility] ED Clinical Summaryon 2019 ED Clinical Summary [address] [id number] ED Clinical Summary Person Information Name: BRYAN CRUZ/New_Favian Age: 49 Years : 1970 Sex: Female Language: Indonesian PCP: Alexa Gomez MD Marital Status: Single Visit Id: Visit Reason: Neck pain; NECK PAIN Speciality: Acuity: 4 Enc Type: Emergency Med Service: Emergency Arrival: 01/25/2020 16:35:07 Discharge: 01/25/2020 18:38:37 LOS: 000 02:03 Checkin: 01/25/2020 16:35:07 Checkout: 01/25/2020 18:38:37 Dispo Type: Home (Routine DC) EVENTS: Event Name Event Status Request Date/Time Start Date/Time Complete Date/Time Arrive Complete 01/25/2020 16:35:07 01/25/2020 16:35:07 01/25/2020 16:35:07 Document Home Meds Request 01/25/2020 16:35:07 Triage Complete 01/25/2020 16:35:07 01/25/2020 17:11:17 01/25/2020 17:11:17 Dr Exam Complete 01/25/2020 17:01:19 01/25/2020 17:01:19 01/25/2020 17:01:19 Registration Complete 01/25/2020 17:01:19 01/25/2020 17:05:30 01/25/2020 17:06:02 Bed Assign Complete 01/25/2020 17:05:30 01/25/2020 17:05:30 01/25/2020 17:05:30 RN Exam Complete 01/25/2020 17:05:30 01/25/2020 17:19:46 01/25/2020 17:19:46 Reg Complete Request 01/25/2020 17:06:02 Reg Bed Request Complete 01/25/2020 17:06:02 01/25/2020 17:06:02 01/25/2020 17:06:02 Isolation Screening Request 01/25/2020 17:11:18 Dr Exam Complete 01/25/2020 17:12:14 01/25/2020 17:12:14 01/25/2020 17:12:14 Registration Complete 01/25/2020 17:12:14 01/25/2020 18:22:16 01/25/2020 18:22:16 Meds Admin Complete 01/25/2020 17:58:11 01/25/2020 18:25:05 Discharge Complete 01/25/2020 18:10:04 01/25/2020 18:38:42 01/25/2020 18:38:42 Transfer Complete 01/25/2020 18:38:42 01/25/2020 18:38:42 01/25/2020 18:38:42 ADDRESS: [address] [place] [id number] PHYS DOC NOTES: MEDICAL INFORMATION: Prescriptions Given: New Medications Printed Prescriptions methocarbamol (Robaxin-750 oral tablet) 1 Tablets By Mouth 3 times a day for 7 Days. Refills: 0. Medications to Continue with No Changes Other Medications acetaminophen-codeine (Tylenol with Codeine #3 oral tablet) 1 Tablets By Mouth every 6 hours as needed for pain. Refills: 0. acetaminophen-hydroco done (Leroy 325 mg-5 mg oral tablet) 1 Tablets By Mouth 3 times a day as needed for pain. Refills: 0. diazepam (Valium 5 mg Tab) 1 Tablets By Mouth 2 times a day. Refills: 0. lidocaine topical (Lidoderm 5% Patch) 1 Patches Topical every day. apply 12 hours on and 12 hours off daily. Refills: 0. PATIENT EDUCATION INFORMATION: Instructions: Facet Joint Block; Radicular Pain Follow up: With: Address: When: [place] [address] [place] [address] Business (1) In 3 days 01/28/2020 Comments: Follow-up with your specialist, keep your appointment on . Use the muscle relaxers to help with the muscle spasm. DIAGNOSIS: 1:Chronic cervical pain Normal [facility] ED Patient Education Noteon 01-25-2020 ED Patient Education Note Anesthesiology Facet Joint Block The facet joints connect the bones of the spine (vertebrae). They make it possible for you to bend, twist, and make other movements with your spine. They also prevent you from overbending, overtwisting, and making other excessive movements. A facet joint block is a procedure where a numbing medicine (anesthetic) is injected into a facet joint. Often, a type of anti-inflammatory medicine called a steroid is also injected. A facet joint block may be done for two reasons: ? Diagnosis. A facet joint block may be done as a test to see whether neck or back pain is caused by a worn-down or infected facet joint. If the pain gets better after a facet joint block, it means the pain is probably coming from the facet joint. If the pain does not get better, it means the pain is probably not coming from the facet joint. ? ? Therapy. A facet joint block may be done to relieve neck or back pain caused by a facet joint. A facet joint block is only done as a therapy if the pain does not improve with medicine, exercise programs, physical therapy, and other forms of pain management. LET YOUR HEALTH CARE PROVIDER KNOW ABOUT: ? Any allergies you have. ? ? All medicines you are taking, including vitamins, herbs, eyedrops, and nghe-tbw-cnypczc medicines and creams. ? ? Previous problems you or members of your family have had with the use of anesthetics. ? ? Any blood disorders you have had. ? ? Other health problems you have. RISKS AND COMPLICATIONS Generally, having a facet joint block is safe. However, as with any procedure, complications can occur. Possible complications associated with having a facet joint block include: ? Bleeding. ? ? Injury to a nerve near the injection site. ? ? Pain at the injection site. ? ? Weakness or numbness in areas controlled by nerves near the injection site. ? ? Infection. ? ? Temporary fluid retention. ? ? Allergic reaction to anesthetics or medicines used during the procedure. BEFORE THE PROCEDURE ? Follow your health care provider's instructions if you are taking dietary supplements or medicines. You may need to stop taking them or reduce your dosage. ? ? Do not take any new dietary supplements or medicines without asking your health care provider first. ? ? Follow your health care provider's instructions about eating and drinking before the procedure. You may need to stop eating and drinking several hours before the procedure. ? ? Arrange to have an adult drive you home after the procedure. PROCEDURE ? You may need to remove your clothing and dress in an open-back gown so that your health care provider can access your spine. ? ? The procedure will be done while you are lying on an X-ray table. Most of the time you will be asked to lie on your stomach, but you may be asked to lie in a different position if an injection will be made in your neck. ? ? Special machines will be used to monitor your oxygen levels, heart rate, and blood pressure. ? ? If an injection will be made in your neck, an intravenous (IV) tube will be inserted into one of your veins. Fluids and medicine will flow directly into your body through the IV tube. ? ? The area over the facet joint where the injection will be made will be cleaned with an antiseptic soap. The surrounding skin will be covered with sterile drapes. ? ? An anesthetic will be applied to your skin to make the injection area numb. You may feel a temporary stinging or burning sensation. ? ? A video X-ray machine will be used to locate the joint. A contrast dye may be injected into the facet joint area to help with locating the joint. ? ? When the joint is located, an anesthetic medicine will be injected into the joint through the needle. ? ? Your health care provider will ask you whether you feel pain relief. If you do feel relief, a steroid may be injected to provide pain relief for a longer period of time. If you do not feel relief or feel only partial relief, additional injections of an anesthetic may be made in other facet joints. ? ? The needle will be removed, the skin will be cleansed, and bandages will be applied. ? AFTER THE PROCEDURE ? You will be observed for 15?30 minutes before being allowed to go home. Do not drive. Have an adult drive you or take a taxi or public transportation instead. ? ? If you feel pain relief, the pain will return in several hours or days when the anesthetic wears off. ? ? You may feel pain relief 2?14 days after the procedure. The amount of time this relief lasts varies from person to person. ? ? It is normal to feel some tenderness over the injected area(s) for 2 days following the procedure. ? ? If you have diabetes, you may have a temporary increase in blood sugar.? Document Released: 12/12/2007 Document Revised: 12/07/2014 Document Reviewed: 05/12/2013 ExitCare? Patient Information ?2015 [employer]. This information is not intended to replace advice given to you by your health care provider. Make sure you discuss any questions you have with your health care provider. Family Medicine Radicular Pain Radicular pain in either the arm or leg is usually from a bulging or herniated disk in the spine. A piece of the herniated disk may press against the nerves as the nerves exit the spine. This causes pain which is felt at the tips of the nerves down the arm or leg. Other causes of radicular pain may include: ? Fractures. ? Heart disease. ? Cancer. ? An abnormal and usually degenerative state of the nervous system or nerves (neuropathy). Diagnosis may require CT or MRI scanning to determine the primary cause. Nerves that start at the neck (nerve roots) may cause radicular pain in the outer shoulder and arm. It can spread down to the thumb and fingers. The symptoms vary depending on which nerve root has been affected. In most cases radicular pain improves with conservative treatment. Neck problems may require physical therapy, a neck collar, or cervical traction. Treatment may take many weeks, and surgery may be considered if the symptoms do not improve. Conservative treatment is also recommended for sciatica. Sciatica causes pain to radiate from the lower back or buttock area down the leg into the foot. Often there is a history of back problems. Most patients with sciatica are better after 2 to 4 weeks of rest and other supportive care. Short term bed rest can reduce the disk pressure considerably. Sitting, however, is not a good position since this increases the pressure on the disk. You should avoid bending, lifting, and all other activities which make the problem worse. Traction can be used in severe cases. Surgery is usually reserved for patients who do not improve within the first months of treatment. Only take pbqb-wzc-yiilbtb or prescription medicines for pain, discomfort, or fever as directed by your caregiver. Narcotics and muscle relaxants may help by relieving more severe pain and spasm and by providing mild sedation. Cold or massage can give significant relief. Spinal manipulation is not recommended. It can increase the degree of disc protrusion. Epidural steroid injections are often effective treatment for radicular pain. These injections deliver medicine to the spinal nerve in the space between the protective covering of the spinal cord and back bones (vertebrae). Your caregiver can give you more information about steroid injections. These injections are most effective when given within two weeks of the onset of pain. You should see your caregiver for follow up care as recommended. A program for neck and back injury rehabilitation with stretching and strengthening exercises is an important part of management. SEEK IMMEDIATE MEDICAL CARE IF: ? You develop increased pain, weakness, or numbness in your arm or leg. ? You develop difficulty with bladder or bowel control. ? You develop abdominal pain. Document Released: 08/30/2005 Document Revised: 10/14/2012 Document Reviewed: 11/15/2009 ExitCare? Patient Information ?2014 [employer]. This information is not intended to replace advice given to you by your health care provider. Make sure you discuss any questions you have with your health care provider. Normal [facility] ED Patient Summaryon 020 ED Patient Summary [address] [address] Patient Discharge Instructions Person Information Name: BRYAN CRUZ Age: 49 Years Arrival Date: 01/25/2020 16:35:07 Discharge Diagnosis: 1:Chronic cervical pain Primary Care Physician: Alexa Gomez MD Provider Information Primary Provider: Alesha Guzmán DO Advanced Epic Application Coordinator:Lavon Lyon PA-C The exam and treatment you received in the Emergency Department were for an urgent problem and are not intended as complete care. It is important that you follow up with a doctor, nurse practitioner, or physician?s travel assistant for ongoing care. If your symptoms become worse or you do not improve as expected and you are unable to reach your usual health care provider, you should return to the Emergency Department. We are available 24 hours a day. BRYAN CRUZ has been given the following list of patient education materials, prescriptions and follow-up instructions: Follow-up Instructions: With: Address: When: Alexa Gomez [place] [address] [facility] (1) In 3 days 01/28/2020 Comments: Follow-up with your specialist, keep your appointment on . Use the muscle relaxers to help with the muscle spasm. In the event that this physician does not participate in your insurance network, please consult with your insurance company to find a nearby participating provider. Patient Education Materials: Facet Joint Block; Radicular Pain A MESSAGE TO ALL PATIENTS REGARDING OPIOIDS PRESCRIPTION OPIOIDS: WHAT YOU NEED TO KNOW Prescription opioids can be used to help relieve tvmhmeby-le-fmmyqe pain and are often prescribed following a surgery or injury, or for certain health conditions. These medications can be an important part of the treatment but also come with serious risks. It is important to work with your healthcare provider to make sure you are getting the safest, most effective care. WHAT ARE THE RISKS AND SIDE EFFECTS OF OPIOID USE? Prescription opioids carry serious risks of addiction and overdose, especially with prolonged use. An opioid overdose, often marked by slowed breathing, can cause sudden . The use of prescription opioids can have a number of side effects as well, even when taken as directed: ? Tolerance?meaning you might need to take more of the medication for the same pain relief ? Physical dependence?meaning you have symptoms of withdrawal when a medication is stopped ? Increased sensitivity to pain ? Constipation ? Nausea, vomiting, and dry mouth ? Sleepiness and dizziness ? Confusion ? Depression ? Low levels of testosterone that can result in lower sex drive, energy, and strength ? Itching and sweating RISKS ARE GREATER WITH: ? History of drug misuse, substance use disorder, or overdose ? Mental health conditions (such as depression or anxiety) ? Sleep apnea ? Older age (65 years and older) ? Avoid alcohol while taking prescription opioids. Also, unless specifically advised by your health care provider, medications to avoid include: ? Benzodiazepines (such as Xanax or Valium) ? Muscle relaxants (such as Soma or Flexeril) ? Hypnotics (such as Ambien or Lunesta) ? Other prescription opioids KNOW YOUR OPTIONS Talk to your health care provider about ways to manage your pain that don?t involve prescription opioids. Some of these options may actually work better and have fewer risks and side effects. Options may include: ? Pain relievers such as acetaminophen, ibuprofen, and naproxen ? Some medication that are also used for depression or seizures ? Physical therapy and exercise ? Cognitive behavioral therapy, a psychological, goal-directed approach, in which patients learn how to modify physical, behavioral, and emotional triggers of pain and stress. IF YOU ARE PRESCRIBED OPIOIDS FOR PAIN: ? Never take opioids in greater amounts or more often than prescribed. ? Follow up with your primary health care provider. o Work together to create a plan on how to manage your pain. o Talk about ways to help manage your pain that don?t involve prescription opioids. o Talk about any and all concerns and side effects. ? Help prevent misuse and abuse o Never sell or share prescription opioids. o Never use another person?s prescription opioids. ? Store prescription opioids in a secure place and out of reach of others (this may include visitors, children, friends, and family). ? Safely dispose of unused prescription opioids: Find your community drug take-back program or your pharmacy mail-back program, or flush them down the toilet, following guidance from the Food and Drug Administration (www.fda.gov/Drugs/Re sourcesForYou). ? Visit www.cdc.gov/drugoverd ose to learn about the risks of opioids abuse and overdose. ? If you believe you may be struggling with addiction, tell your health care connector and ask for guidance or call [facility]?S National Helpline at 7-733-949-SAPW. p Source: [place] Department of Health and Human Services/Center for Disease Control & Prevention [facility] Medications Given: Medication Dose Route triamcinolone 40.00 mg IntraMuscular Right Deltoid lorazepam 1.00 mg IntraMuscular Left Deltoid Medication Information: New Medications Printed Prescriptions methocarbamol (Robaxin-750 oral tablet) 1 Tablets By Mouth 3 times a day for 7 Days. Refills: 0. Medications to Continue with No Changes Other Medications acetaminophen-codeine (Tylenol with Codeine #3 oral tablet) 1 Tablets By Mouth every 6 hours as needed for pain. Refills: 0. acetaminophen-hydroco done (Leroy 325 mg-5 mg oral tablet) 1 Tablets By Mouth 3 times a day as needed for pain. Refills: 0. diazepam (Valium 5 mg Tab) 1 Tablets By Mouth 2 times a day. Refills: 0. lidocaine topical (Lidoderm 5% Patch) 1 Patches Topical every day. apply 12 hours on and 12 hours off daily. Refills: 0. Comment: Pharmacy Information: Thank you for choosing [facility] Patient Education Materials: Facet Joint Block The facet joints connect the bones of the spine (vertebrae). They make it possible for you to bend, twist, and make other movements with your spine. They also prevent you from overbending, overtwisting, and making other excessive movements. A facet joint block is a procedure where a numbing medicine (anesthetic) is injected into a facet joint. Often, a type of anti-inflammatory medicine called a steroid is also injected. A facet joint block may be done for two reasons: ? Diagnosis. A facet joint block may be done as a test to see whether neck or back pain is caused by a worn-down or infected facet joint. If the pain gets better after a facet joint block, it means the pain is probably coming from the facet joint. If the pain does not get better, it means the pain is probably not coming from the facet joint. ? ? Therapy. A facet joint block may be done to relieve neck or back pain caused by a facet joint. A facet joint block is only done as a therapy if the pain does not improve with medicine, exercise programs, physical therapy, and other forms of pain management. LET YOUR HEALTH CARE PROVIDER KNOW ABOUT: ? Any allergies you have. ? ? All medicines you are taking, including vitamins, herbs, eyedrops, and hnej-axl-gfsnaug medicines and creams. ? ? Previous problems you or members of your family have had with the use of anesthetics. ? ? Any blood disorders you have had. ? ? Other health problems you have. RISKS AND COMPLICATIONS Generally, having a facet joint block is safe. However, as with any procedure, complications can occur. Possible complications associated with having a facet joint block include: ? Bleeding. ? ? Injury to a nerve near the injection site. ? ? Pain at the injection site. ? ? Weakness or numbness in areas controlled by nerves near the injection site. ? ? Infection. ? ? Temporary fluid retention. ? ? Allergic reaction to anesthetics or medicines used during the procedure. BEFORE THE PROCEDURE ? Follow your health care provider's instructions if you are taking dietary supplements or medicines. You may need to stop taking them or reduce your dosage. ? ? Do not take any new dietary supplements or medicines without asking your health care provider first. ? ? Follow your health care provider's instructions about eating and drinking before the procedure. You may need to stop eating and drinking several hours before the procedure. ? ? Arrange to have an adult drive you home after the procedure. PROCEDURE ? You may need to remove your clothing and dress in an open-back gown so that your health care provider can access your spine. ? ? The procedure will be done while you are lying on an X-ray table. Most of the time you will be asked to lie on your stomach, but you may be asked to lie in a different position if an injection will be made in your neck. ? ? Special machines will be used to monitor your oxygen levels, heart rate, and blood pressure. ? ? If an injection will be made in your neck, an intravenous (IV) tube will be inserted into one of your veins. Fluids and medicine will flow directly into your body through the IV tube. ? ? The area over the facet joint where the injection will be made will be cleaned with an antiseptic soap. The surrounding skin will be covered with sterile drapes. ? ? An anesthetic will be applied to your skin to make the injection area numb. You may feel a temporary stinging or burning sensation. ? ? A video X-ray machine will be used to locate the joint. A contrast dye may be injected into the facet joint area to help with locating the joint. ? ? When the joint is located, an anesthetic medicine will be injected into the joint through the needle. ? ? Your health care provider will ask you whether you feel pain relief. If you do feel relief, a steroid may be injected to provide pain relief for a longer period of time. If you do not feel relief or feel only partial relief, additional injections of an anesthetic may be made in other facet joints. ? ? The needle will be removed, the skin will be cleansed, and bandages will be applied. ? AFTER THE PROCEDURE ? You will be observed for 15?30 minutes before being allowed to go home. Do not drive. Have an adult drive you or take a taxi or public transportation instead. ? ? If you feel pain relief, the pain will return in several hours or days when the anesthetic wears off. ? ? You may feel pain relief 2?14 days after the procedure. The amount of time this relief lasts varies from person to person. ? ? It is normal to feel some tenderness over the injected area(s) for 2 days following the procedure. ? ? If you have diabetes, you may have a temporary increase in blood sugar.? Document Released: 12/12/2007 Document Revised: 12/07/2014 Document Reviewed: 05/12/2013 ExitCare? Patient Information ?2015 [employer] [facility]. This information is not intended to replace advice given to you by your health care provider. Make sure you discuss any questions you have with your health care provider. Radicular Pain Radicular pain in either the arm or leg is usually from a bulging or herniated disk in the spine. A piece of the herniated disk may press against the nerves as the nerves exit the spine. This causes pain which is felt at the tips of the nerves down the arm or leg. Other causes of radicular pain may include: ? Fractures. ? Heart disease. ? Cancer. ? An abnormal and usually degenerative state of the nervous system or nerves (neuropathy). Diagnosis may require CT or MRI scanning to determine the primary cause. Nerves that start at the neck (nerve roots) may cause radicular pain in the outer shoulder and arm. It can spread down to the thumb and fingers. The symptoms vary depending on which nerve root has been affected. In most cases radicular pain improves with conservative treatment. Neck problems may require physical therapy, a neck collar, or cervical traction. Treatment may take many weeks, and surgery may be considered if the symptoms do not improve. Conservative treatment is also recommended for sciatica. Sciatica causes pain to radiate from the lower back or buttock area down the leg into the foot. Often there is a history of back problems. Most patients with sciatica are better after 2 to 4 weeks of rest and other supportive care. Short term bed rest can reduce the disk pressure considerably. Sitting, however, is not a good position since this increases the pressure on the disk. You should avoid bending, lifting, and all other activities which make the problem worse. Traction can be used in severe cases. Surgery is usually reserved for patients who do not improve within the first months of treatment. Only take uukg-zcv-ndxxgza or prescription medicines for pain, discomfort, or fever as directed by your caregiver. Narcotics and muscle relaxants may help by relieving more severe pain and spasm and by providing mild sedation. Cold or massage can give significant relief. Spinal manipulation is not recommended. It can increase the degree of disc protrusion. Epidural steroid injections are often effective treatment for radicular pain. These injections deliver medicine to the spinal nerve in the space between the protective covering of the spinal cord and back bones (vertebrae). Your caregiver can give you more information about steroid injections. These injections are most effective when given within two weeks of the onset of pain. You should see your caregiver for follow up care as recommended. A program for neck and back injury rehabilitation with stretching and strengthening exercises is an important part of management. SEEK IMMEDIATE MEDICAL CARE IF: ? You develop increased pain, weakness, or numbness in your arm or leg. ? You develop difficulty with bladder or bowel control. ? You develop abdominal pain. Document Released: 08/30/2005 Document Revised: 10/14/2012 Document Reviewed: 11/15/2009 ExitCare? Patient Information ?2014 [employer]. This information is not intended to replace advice given to you by your health care provider. Make sure you discuss any questions you have with your health care provider. NANCY Martinez YASHICKA , have received the following patient education materials/instruction s and have verbalized understanding: Patient Education Materials: Facet Joint Block; Radicular Pain Follow-up Instructions: With: Address: When: Alexa Gomez [address] [place], [place] [id number] Business (1) In 3 days 01/28/2020 Comments: Follow-up with your specialist, keep your appointment on . Use the muscle relaxers to help with the muscle spasm. Patient Signature Date Clinician/Nurse Signature Date 01/25/2020 18:38:44 [facility] Outside Recordson 01-25-2020 Outside Records [id number]# 1.00CD:127 [facility] CONSULTATIONon 12-08-2019 CONSULTATION CONSULTATION PAIN MANAGEMENT Consultation Date: 12-08-19 HISTORY OF PRESENT ILLNESS: This is a very pleasant 39 year-old female patient who comes to the pain clinic for the very first time. She is here in the pain clinic in regards to neck pain and shoulder pain due to an incidental event. She states she remembers on July 21, 2019 she was picking up a duffel bag full of shoes and swung it over her right shoulder and immediately felt a popping sensation down her spine. She rates the neck pain a 10/10 which is a constant burning, pressure, and throbbing sensation. Activities that increase the neck and shoulder pain are pushing, pulling, evening time, housework, lifting, bending, reaching up over her head, light touch and massage therapy, activities of daily living, increased activity, sleep, and weather change. Activities that decrease the pain are lying with her neck on a pillow, heat, Tylenol, Leroy, and Lyrica. The Leroy and Lyrica are currently being prescribed by her primary care physician. She presents to the clinic without imaging of the cervical spine on a CD to review. The patient did not report to the clinic with a radiological read from the radiologist. The patient has tried Physical Therapy and has attended 5 visits, however, stopped going to Physical Therapy as per instructed from her primary care provider. The patient stopped going to the Physical Therapy due to increased neck pain and arm pain with traction at her visits. The patient was not discharged from the Physical Therapy Department. The patient does live in [place] and was referred to this pain clinic in [place]. She denies any loss of bowel or bladder, as well as constant paresthesias to the neck or bilateral upper extremities. She does state she has problems with gripping items. The patient has an appointment with [facility], Dr. Palma. As of this time, the patient has not had interventional therapy. The patient is tearful in the office today due to talking with the intake nurse in regards to injection therapy. The patient stated that she would not proceed with injection therapy. MEDICATIONS: Tylenol 1,000 mg b.i.d. p.r.n., Leroy 5/325 mg t.i.d. p.r.n., Lyrica 75 mg b.i.d., baclofen 10 mg t.i.d. p.r.n. PHYSICAL EXAM: VITALS:Temperature 96.9, heart rate of 63, respirations 20, BP 131/83. The patient is 5'11 , 104 kg. HEENT:Head is atraumatic, normocephalic. Facial symmetry is maintained. NECK:Guarded with pain upon extension, compression, and along the posterior cervical elements. There is decreased range of motion to the left and right of the cervical spine. There is tenderness to palpation upon the posterior cervical elements. There is positive axial loading to the left and right cervical facets. There are no lesions noted to the cervical region and trachea is midline. There are no paravertebral spasms noted at this time. There are paresthesias to the cervical region and extends into the right shoulder and terminating in the right scapular region. HEART:Regular rate with no JVD noted. LUNGS:Normal expansion, with unlabored breathing, no audible wheezing noted. The patient presents with a facial mask. ABDOMEN:Soft, nondistended. Abdomen is morbidly obese. BACK:Range of motion is within functional limits for flexion, extension, and rotation with moderate pain. There is negative axial loading to the left and right lumbar facets. There are no paresthesias as well as paravertebral spams noted to the lumbar. EXTREMITIES:Bilateral upper extremities without clubbing or cyanosis. The bilateral lower extremities are without clubbing or cyanosis. Range of motion is within functional limits to the left and right upper and lower extremities. MUSCULOSKELETAL:Intac t to the bilateral upper and lower extremities. Muscle strength 5/5 to the bilateral upper and lower extremities. NEUROLOGICAL: Biceps, brachioradialis, and triceps reflexes are present to the bilateral upper extremities. Patellar reflex 2/2 and Achilles reflex 2/2 are present bilaterally to the lower extremities. Patchy hypoesthesia and tingling sensation is noted in a radicular pattern on the right cervical region and extends into the right forearm. PSYCHIATRIC:The patient is cooperative, alert and oriented x3, and is tearful in the clinic today. DIAGNOSES: 1. Cervicalgia. 2. Cervical neuritis. 3. Cervical spondylosis. PLAN: 1. Authorize and schedule the patient for a cervical epidural steroid injection. 2. I will write for a multivitamin 1 p.o. daily and calcium with vitamin D daily. 3. The patient does utilize [employer]rer compound cream through her primary care physician. 4. Discussed using Eddie's rub [id number] intermittently with the cream. 5. The patient is to continue to utilize heat therapy for the neck pain. 6. The patient currently is prescribed Leroy and Lyrica through her primary care physician and we will continue to have the primary care physician prescribe these medications and provide injection therapy only. 7. I did discuss with the patient in a long conversation in regards to interventional therapy for her chronic neck pain. The patient as stated above, has no proceeded with injection therapy at this time. She will consult with a spine surgeon at [facility], however, has not done so as of this time. I discussed with the patient that typically the surgeon will want the patient to proceed with injection therapy prior to cervical spine surgery. The cervical MRI was given to me by the nurse at the end of the patient's visit that was faxed over from [facility]. There is of note, in the scan read by the radiologist, that multiple sclerosis could not be ruled out at this time. The patient is discussing with her primary care physician in regards to following up with a neurologist in regards to this finding. The patient is now very open to injection therapy after discussing with the patient. She denies any questions in regards to the cervical epidural steroid injection. I did discuss the procedure with the patient. 8. The patient will followup in the pain clinic 2-3 weeks after the epidural steroid injection to reevaluate her pain. 9. We may look to proceed with a #1 medial branch block at the levels of C3, C4, C5 in regards to cervical spondylosis as well as chronic headaches. Dictated by Goran Thacker APRN [facility] Signed and Approved by: GORAN THACKER 12/15/2019 17:10:00 [facility] Vital Signs Date Time Vital Sign Value Performing Clinician Facility 07-09-2024 06:33-0500 Body temperature 98.6 [degF] John Colunga MD Work Phone: [facility] 07-09-2024 06:33-0500 Diastolic blood pressure 68 mm[Hg] John Colunga MD Work Phone: [facility] 07-09-2024 06:33-0500 Heart rate 70 /min [facility] 07-09-2024 06:33-0500 Respiratory rate 20 /min [facility] 07-09-2024 06:33-0500 SaO2% (BldA) [Mass fraction] 97 % [facility] 07-09-2024 06:33-0500 Systolic blood pressure 137 mm[Hg] [facility] 07-07-2024 20:23-0500 Body mass index (BMI) [Ratio] 44.6 kg/m2 John [facility]unga MD [facility] 07-07-2024 20:23-0500 Body weight 100.15 kg John Colunga MD Work Phone: [facility] 07-07-2024 17:29-0500 Body height 149.9 cm John [facility]unga MD [facility] 07-07-2024 16:03-0500 Heart rate 55 /min John Colunag MD [facility] 06-16-2024 14:24-0500 Body mass index (BMI) [Ratio] 44.05 kg/m2 Freda Brazofsky CATALYST IMPREGNATOR.COMPENSATION CONSULTING MANAGER Work Phone: [facility] 06-16-2024 14:24-0500 Body weight 102.3 kg Freda Brazofsky CATALYST IMPREGNATOR.COMPENSATION CONSULTING MANAGER Work Phone: [facility] 06-16-2024 14:24-0500 Diastolic blood pressure 82 mm[Hg] Freda Brazofsky CATALYST IMPREGNATOR.COMPENSATION CONSULTING MANAGER Work Phone: [facility] 06-16-2024 14:24-0500 Systolic blood pressure 138 mm[Hg] Freda Brazofsky CATALYST IMPREGNATOR.COMPENSATION CONSULTING MANAGER Work Phone: [facility] 06-05-2024 13:46-0400 Body height 152.4 cm Freda Brazofsky CATALYST IMPREGNATOR.COMPENSATION CONSULTING MANAGER Work Phone: [facility] 06-05-2024 13:46-0400 Body mass index (BMI) [Ratio] 43.18 kg/m2 Freda Brazofsky CATALYST IMPREGNATOR.COMPENSATION CONSULTING MANAGER Work Phone: [facility] 06-05-2024 13:46-0400 Body weight 100.3 kg Freda Brazofsky CATALYST IMPREGNATOR.COMPENSATION CONSULTING MANAGER Work Phone: [facility] 06-05-2024 13:46-0400 Diastolic blood pressure 64 mm[Hg] Freda Brazofsky CATALYST IMPREGNATOR.COMPENSATION CONSULTING MANAGER Work Phone: [facility] 06-05-2024 13:46-0400 Systolic blood pressure 128 mm[Hg] Freda Brazofsky CATALYST IMPREGNATOR.COMPENSATION CONSULTING MANAGER Work Phone: [facility] 05-08-2024 09:35-0400 Body mass index (BMI) [Ratio] 41.33 kg/m2 Raymond Kemp CATALYST IMPREGNATOR.COMPENSATION CONSULTING MANAGER Work Phone: [facility] 05-08-2024 09:35-0400 Body weight 96 kg Raymond Kemp CATALYST IMPREGNATOR.COMPENSATION CONSULTING MANAGER Work Phone: [facility] 05-08-2024 09:35-0400 Diastolic blood pressure 65 mm[Hg] Raymond Kemp CATALYST IMPREGNATOR.COMPENSATION CONSULTING MANAGER Work Phone: [facility] 05-08-2024 09:35-0400 Heart rate 64 /min Raymond Kemp CATALYST IMPREGNATOR.COMPENSATION CONSULTING MANAGER Work Phone: [facility] 05-08-2024 09:35-0400 Systolic blood pressure 126 mm[Hg] Raymond Kemp CATALYST IMPREGNATOR.COMPENSATION CONSULTING MANAGER Work Phone: [facility] 02-14-2024 08:35-0400 Body height 152.4 cm Sal Malloy MD Work Phone: [facility] 02-14-2024 08:35-0400 Body mass index (BMI) [Ratio] 42.15 kg/m2 Sal Malloy MD Work Phone: [facility] 02-14-2024 08:35-0400 Body weight 97.9 kg Sal Malloy MD Work Phone: [facility] 02-14-2024 08:35-0400 Diastolic blood pressure 62 mm[Hg] Sal aMlloy MD Work Phone: [facility] 02-14-2024 08:35-0400 Heart rate 66 /min Sal Malloy MD Work Phone: [facility] 02-14-2024 08:35-0400 Systolic blood pressure 130 mm[Hg] Sal Malloy MD Work Phone: [facility] 01-31-2024 10:06-0400 Body mass index (BMI) [Ratio] 40.2 kg/m2 Raymond Kemp CATALYST IMPREGNATOR.COMPENSATION CONSULTING MANAGER Work Phone: [facility] 01-31-2024 10:06-0400 Body weight 94.1 kg Raymond Martinezler CATALYST IMPREGNATOR.COMPENSATION CONSULTING MANAGER Work Phone: [facility] 01-31-2024 10:06-0400 Diastolic blood pressure 77 mm[Hg] Raymond Kemp CATALYST IMPREGNATOR.COMPENSATION CONSULTING MANAGER Work Phone: [facility] 01-31-2024 10:06-0400 Heart rate 74 /min Raymond Kemp CATALYST IMPREGNATOR.COMPENSATION CONSULTING MANAGER Work Phone: [facility] 01-31-2024 10:06-0400 Systolic blood pressure 160 mm[Hg] Raymond Kemp CATALYST IMPREGNATOR.COMPENSATION CONSULTING MANAGER Work Phone: [facility] 09-20-2023 14:02-0500 Body weight 98.3 kg Raymond Kemp CATALYST IMPREGNATOR.COMPENSATION CONSULTING MANAGER Work Phone: [facility] 09-20-2023 14:02-0500 Diastolic blood pressure 83 mm[Hg] Raymond Kemp CATALYST IMPREGNATOR.COMPENSATION CONSULTING MANAGER Work Phone: [facility] 09-20-2023 14:02-0500 Heart rate 70 /min Raymond Kemp CATALYST IMPREGNATOR.COMPENSATION CONSULTING MANAGER Work Phone: [facility] 09-20-2023 14:02-0500 Systolic blood pressure 128 mm[Hg] Raymond Kemp APRN.COMPENSATION CONSULTING MANAGER Work Phone: [facility] 08-14-2023 13:00-0500 Diastolic blood pressure 74 mm[Hg] [facility] 08-14-2023 13:00-0500 Heart rate 76 /min [facility] [employer] 08-14-2023 13:00-0500 Systolic blood pressure 132 mm[Hg] [facility] 08-14-2023 12:20-0500 Body temperature 97 [degF] [email or web address] 08-14-2023 12:20-0500 Respiratory rate 20 /min [facility] [employer] [facility] [employer] 08-13-2023 15:40-0500 Diastolic blood pressure 70 mm[Hg] Jeffery Cantu DO Work Phone: [facility] 08-13-2023 15:40-0500 SaO2% (BldA) [Mass fraction] 99 % Jeffery Cantu DO Work Phone: [facility] 08-13-2023 15:40-0500 Systolic blood pressure 113 mm[Hg] Jeffery Cantu DO Work Phone: [facility] 08-13-2023 14:30-0500 Heart rate 55 /min Jeffery Cantu DO Work Phone: [facility] 08-13-2023 14:30-0500 Respiratory rate 11 /min Jeffery Cantu DO Work Phone: [facility] 08-13-2023 13:15-0500 Body height 151.1 cm Jeffery Cantu DO Work Phone: [facility] 08-13-2023 13:15-0500 Body mass index (BMI) [Ratio] 41.71 kg/m2 Jeffery Cantu DO Work Phone: [facility] 08-13-2023 13:15-0500 Body weight 95.25 kg Jeffery Cantu DO Work Phone: [facility] 08-13-2023 12:18-0500 Body temperature 97.39 [degF] Jeffery Cantu DO Work Phone: [facility] 07-19-2023 15:36-0500 Body height 153 cm Sandro Hinojosa MD Work Phone: [facility] 07-19-2023 15:36-0500 Body temperature 97.3 [degF] Sandro Hinojosa MD Work Phone: [facility] 07-19-2023 15:36-0500 Body weight 99.7 kg Sandro Hinojosa MD Work Phone: [facility] 07-19-2023 15:36-0500 Diastolic blood pressure 64 mm[Hg] Sandro Hinojosa MD Work Phone: [facility] 07-19-2023 15:36-0500 Heart rate 65 /min Sandro Hinojosa MD Work Phone: [facility] 07-19-2023 15:36-0500 SaO2% (BldA) [Mass fraction] 100 % Sandro Hinojosa MD Work Phone: [facility] 07-19-2023 15:36-0500 Systolic blood pressure 146 mm[Hg] Sandro Hinojosa MD Work Phone: [facility] 07-19-2023 13:57-0500 Body weight 97.52 kg Raymond Kemp APRN.COMPENSATION CONSULTING MANAGER Work Phone: [facility] 07-19-2023 13:57-0500 Diastolic blood pressure 56 mm[Hg] Raymond Kemp APRN.COMPENSATION CONSULTING MANAGER Work Phone: [facility] 07-19-2023 13:57-0500 Heart rate 71 /min Raymond Kemp APRN.COMPENSATION CONSULTING MANAGER Work Phone: [facility] 07-19-2023 13:57-0500 Systolic blood pressure 112 mm[Hg] Raymond Kemp COMPENSATION CONSULTING MANAGER Work Phone: [facility] 04-18-2023 09:20-0400 Body weight 91.17 kg Ellen Rothman MD Work Phone: [facility] 04-18-2023 09:20-0400 Diastolic blood pressure 76 mm[Hg] Ellen Rothman MD Work Phone: [facility] 04-18-2023 09:20-0400 Heart rate 74 /min Ellen Rothman MD Work Phone: [facility] 04-18-2023 09:20-0400 Systolic blood pressure 146 mm[Hg] Ellen Rothman MD Work Phone: [facility] 04-08-2023 07:02-0400 Body height 149.86 cm DO Rina Schwerer Work Phone: [facility] 04-08-2023 07:02-0400 Body temperature 98.3 [degF] DO Rina Schwerer Work Phone: [facility] 04-08-2023 07:02-0400 Body weight 93.44 kg DO Rina Schwerer Work Phone: [facility] 04-08-2023 07:02-0400 Diastolic blood pressure 77 mm[Hg] DO Rina Schwerer Work Phone: [facility] 04-08-2023 07:02-0400 Heart rate 82 /min DO Rina Schwerer Work Phone: [facility] 04-08-2023 07:02-0400 Respiratory rate 16 /min DO Rina Schwerer Work Phone: [facility] 04-08-2023 07:02-0400 SaO2% (BldA) [Mass fraction] 99 % DO Rina Schwerer Work Phone: [facility] 04-08-2023 07:02-0400 Systolic blood pressure 161 mm[Hg] DO Rina Reardon Work Phone: [facility] 08-17-2022 08:52-0500 Body height 151.8 cm Pacc 2 Work Phone: [facility] 08-17-2022 08:52-0500 Body temperature 97 [degF] Pacc 2 Work Phone: [facility] 08-17-2022 08:52-0500 Body weight 92.53 kg Pacc 2 Work Phone: [facility] 08-17-2022 08:52-0500 Diastolic blood pressure 65 mm[Hg] Pacc 2 Work Phone: [facility] 08-17-2022 08:52-0500 Heart rate 51 /min Pacc 2 Work Phone: [facility] 08-17-2022 08:52-0500 Respiratory rate 16 /min Pacc 2 Work Phone: [facility] 08-17-2022 08:52-0500 SaO2% (BldA) [Mass fraction] 100 % Pacc 2 Work Phone: [facility] 08-17-2022 08:52-0500 Systolic blood pressure 143 mm[Hg] Pacc 2 Work Phone: [facility] 10-27-2021 09:17-0400 Body height 151.1 cm Magdalene Zrenner PA-C Work Phone: [facility] 10-27-2021 09:17-0400 Body weight 92.99 kg Magdalene Zrenner PA-C Work Phone: [facility] 10-27-2021 09:17-0400 Diastolic blood pressure 76 mm[Hg] Magdalene Zrenner PA-C Work Phone: [facility] 10-27-2021 09:17-0400 Heart rate 66 /min Magdalene Zrenner PA-C Work Phone: [facility] 10-27-2021 09:17-0400 Systolic blood pressure 128 mm[Hg] Magdalene Drake PA-C Work Phone: [facility] 09-20-2021 13:45-0500 Body height Rina Schwerer Other [employer] Other 09-20-2021 13:45-0500 Body mass index (BMI) [Ratio] 43.06 kg/m2 Rina Schwerer Other [employer] Other 09-20-2021 13:45-0500 Body temperature 95.7 [degF] Rina Schwerer Other [employer] Other 09-20-2021 13:45-0500 Body weight 96.71 kg Rina Schwerer Other [employer] Other 09-20-2021 13:45-0500 Diastolic blood pressure 78 mm[Hg] Rina Schwerer Other [employer] Other 09-20-2021 13:45-0500 SaO2% (BldA) [Mass fraction] 98 % Rina Schwerer Other [employer] Other 09-20-2021 13:45-0500 Systolic blood pressure 108 mm[Hg] Rina Schwerer Other [employer] Other 06-24-2021 10:00-0500 Body height Rina Schwerer Other [employer] Other 06-24-2021 10:00-0500 Body mass index (BMI) [Ratio] 42.61 kg/m2 Rina Schwerer Other [facility] [employer] Other 06-24-2021 10:00-0500 Body temperature 96 [degF] Rina Schwerer Other [employer] Other 06-24-2021 10:00-0500 Body weight 95.71 kg Rina Schwerer Other [facility] [employer] Other 06-24-2021 10:00-0500 SaO2% (BldA) [Mass fraction] 98 % Rina Schwerer Other [employer] Other 01-25-2021 13:05-0400 Body height 151.77 cm DO Rina Schwerer Work Phone: [facility] 01-25-2021 13:05-0400 Body temperature 98.1 [degF] DO Rina Schwerer Work Phone: [facility] 01-25-2021 13:05-0400 Body weight 101.24 kg DO Rina Schwerer Work Phone: [facility] 01-25-2021 13:05-0400 Diastolic blood pressure 73 mm[Hg] DO Rina Schwerer Work Phone: [facility] 01-25-2021 13:05-0400 Heart rate 65 /min DO Rina Schwerer Work Phone: [facility] 01-25-2021 13:05-0400 Respiratory rate 20 /min DO Rina Schwerer Work Phone: [facility] 01-25-2021 13:05-0400 SaO2% (BldA) [Mass fraction] 100 % DO Rina Schwerer Work Phone: [facility] 01-25-2021 13:05-0400 Systolic blood pressure 120 mm[Hg] DO Rina Reardon Work Phone: [facility] Encounters Encounter Date Encounter Type Care Provider Facility Start: 09-04-2024 End: 09-05-2024 Telephone encounter Raymond Kemp APRN.CNP Work Phone: Neurology Comment on above: Letter Start: 08-28-2024 End: 08-28-2024 Specialty Pharmacy [facility] Comment on above: [facility] Neurology - Medi cation Refill (Zeposia ) Start: 08-21-2024 End: 08-21-2024 ambulatory Raymond Kemp APRN.CNP Work Phone: [facility] Comment on above: Multiple sclerosis ( HCC) (Primary Dx); Neuropathic pain; Chronic bilateral low back pain without sciatica; Fibroids; Vitamin D deficiency Start: 08-21-2024 End: 08-21-2024 Telemedicine consultation with patient Raymond Kemp COMPENSATION CONSULTING MANAGER Work Phone: [facility] Start: 08-04-2024 End: 08-04-2024 Specialty Pharmacy [facility] Comment on above: SPP Neurology - Medi cation Refill (Zeposia) Start: 08-01-2024 End: 08-01-2024 Patient encounter procedure Michi Gomez RT(R) Radiology Start: 08-01-2024 End: 08-01-2024 ambulatory Michi Gomez RT(R) Radiology Comment on above: Radiology MRI Start: 08-01-2024 End: 08-01-2024 Subsequent hospital visit by physician Mri [facility] (1.5t) Work Phone: Radiology Comment on above: Multiple sclerosis ( HCC) [G35] Start: 07-15-2024 End: 07-15-2024 Telephone encounter Freda Hernandez APRN.COMPENSATION CONSULTING MANAGER Work Phone: [facility] [place] Comment on above: Appointment Start: 07-10-2024 End: 07-10-2024 Letter encounter Silvia Hall RN [facility] [address] Start: 07-08-2024 End: 07-11-2024 Telephone encounter Sen Lange MD Work Phone: [facility]hthal[facility] (Eye) Residents Start: 07-07-2024 End: 07-10-2024 Evaluation and management of inpatient YOUSIF GILLETTE Facility:[facility] Start: 07-07-2024 End: 07-10-2024 Evaluation and management of inpatient John Colunga MD Work Phone: [facility] [address] Comment on above: Dyspnea, unspecified type (Primary Dx); Bradycardia, unspecified; Multiple sclerosis exacerbation (HCC); Cardiac insufficiency (HCC); Current every day smoker; History of cocaine abuse (HCC); Major depressive disorder in partial remission, unspecified whether recurrent (HCC); Vitamin D deficiency; Hyperlipidemia, unspecified hyperlipidemia type; Mixed hyperlipidemia; Shortness of breath Start: 07-07-2024 Emergency department patient visit UNKNOWN PROVIDER Facility:[facility] Start: 07-04-2024 End: 07-04-2024 Specialty Pharmacy Mag[facility] Gregory [facility] Comment on above: SPP Neurology - Medi cation Refill (Zeposia ) Start: 07-02-2024 End: 07-02-2024 Refill Raymond Kemp APRN.CNP Work Phone: [facility] Comment on above: Refill Request Start: 06-30-2024 End: 06-30-2024 Refill Raymond Kemp APRN.CNP Work Phone: [facility] Comment on above: Refill Request; Appo intment Request Start: 06-23-2024 End: 06-30-2024 E-mail encounter from caregiver [facility] Internal Medicine Edie Start: 06-23-2024 End: 06-30-2024 Patient encounter procedure [facility] Internal Medicine Edie Comment on above: Appointment Reschedu le Start: 06-16-2024 End: 06-16-2024 ambulatory FREDA HERNANDEZ Facility:[facility] Start: 06-16-2024 End: 06-16-2024 Office outpatient visit 15 minutes Freda Hernandez APRN.COMPENSATION CONSULTING MANAGER Work Phone: Gynecology Comment on above: Fibroids (Primary Dx ); Prediabetes Start: 06-10-2024 End: 06-10-2024 ambulatory [facility] Work Phone: Gynecology Start: 06-10-2024 End: 06-10-2024 Patient encounter procedure [facility] Work Phone: Gynecology Start: 06-05-2024 End: 06-05-2024 ambulatory FREDA HERNANDEZ Facility:[facility] Start: 06-05-2024 End: 06-05-2024 Patient encounter procedure Freda Danika Hernandez CATALYST IMPREGNATOR.COMPENSATION CONSULTING MANAGER Work Phone: Gynecology Comment on above: PMB (postmenopausal bleeding) Start: 06-04-2024 End: 06-04-2024 Patient encounter procedure Michi Gomez RT(R) Radiology Start: 06-04-2024 End: 06-04-2024 ambulatory Michi Gomez RT(R) Radiology Comment on above: Radiology MRI Start: 06-04-2024 End: 06-04-2024 Subsequent hospital visit by physician Mri [facility] (1.5t) Work Phone: Radiology Comment on above: Multiple sclerosis ( HCC) [G35] Start: 06-02-2024 End: 06-03-2024 Refill Raymond Kemp APRN.COMPENSATION CONSULTING MANAGER Work Phone: [facility] Comment on above: Refill Request Start: 05-26-2024 End: 05-26-2024 Specialty Pharmacy Mag[facility] Gregory [facility] Comment on above: SPP Neurology - Medi cation Refill (Zeposia) Start: 05-08-2024 End: 05-08-2024 ambulatory SANDRO HINOJOSA Facility:[facility] Start: 05-08-2024 End: 05-08-2024 Subsequent hospital visit by physician Xr [facility] Start: 05-08-2024 End: 05-08-2024 ambulatory RAYMOND KEMP Facility:[facility] Start: 05-08-2024 End: 05-08-2024 Patient encounter procedure Raymond Kemp APRN.COMPENSATION CONSULTING MANAGER Work Phone: [facility] Comment on above: Multiple sclerosis ( HCC) (Primary Dx); Pain in joint of right hand; Chronic bilateral low back pain without sciatica; Neuropathic pain; History of dry mouth; Vitamin D deficiency Start: 04-09-2024 End: 04-09-2024 Specialty Pharmacy [facility] Comment on above: SPP Neurology - Medi cation Refill (Zeposia) Start: 03-13-2024 Specialty Pharmacy [facility] Comment on above: SPP Neurology - Medi cation Refill (Zeposia) Start: 02-15-2024 End: 02-15-2024 Patient encounter procedure [facility]YSICIAN [facility] [place] Work Phone: Start: 02-15-2024 End: 02-15-[address] [facility] Work Phone: Start: 02-14-2024 End: 02-14-2024 ambulatory SANDRO HINOJOSA Facility:[facility] Start: 02-14-2024 End: 02-14-2024 Patient encounter procedure Sal Malloy MD Work Phone: OB/Gynecology Comment on above: Encounter for Papani colaou smear for cervical cancer screening (Primary Dx); Encounter for gynecological examination (general) (routine) without abnormal findings; PMB (postmenopausal bleeding); Encounter for screening mammogram for malignant neoplasm of breast Start: 02-14-2024 End: 02-14-2024 Patient encounter status Sal Malloy MD Work Phone: [facility] Work Phone: Start: 02-05-2024 Specialty Pharmacy [facility] Comment on above: SPP Neurology - Medi cation Refill (Zeposia) Start: 02-04-2024 Refill Ellen Rothman MD Work Phone: [facility] Comment on above: Refill Request Start: 01-31-2024 End: 01-31-2024 ambulatory RAYMOND KEMP Facility:[facility] Start: 01-31-2024 End: 01-31-2024 Patient encounter procedure Raymond Kemp APRN.COMPENSATION CONSULTING MANAGER Work Phone: [facility] Comment on above: Multiple sclerosis ( HCC) (Primary Dx); Encounter for medication monitoring; Neuropathic pain; Vitamin D deficiency; Other fatigue; Rash; Snoring; Mixed hyperlipidemia; Spasticity; History of dry mouth Start: 01-10-2024 Specialty Pharmacy [facility] Comment on above: SPP Neurology - Medi cation Refill (Zeposia) Start: 12-17-[address] [facility] Start: 11-30-2023 Refill Raymond Kemp APRN.COMPENSATION CONSULTING MANAGER Work Phone: [facility] Comment on above: Refill Request Start: 11-08-2023 Specialty Pharmacy [facility] Comment on above: SPP Neurology - Medi cation Refill (Zeposia) Start: 10-17-2023 Refill Raymond Kemp APRN.COMPENSATION CONSULTING MANAGER Work Phone: [facility] Comment on above: Refill Request Start: 10-02-2023 Specialty Pharmacy [facility] Comment on above: [facility] Neurology - Medi cation Refill (Zeposia) Start: 10-01-2023 Refill Ellen Rotmhan MD Work Phone: [facility] Comment on above: Refill Request Start: 09-28-2023 Telephone encounter Kurtis lo PT Work Phone: [facility] Physical Therapy Start: 09-21-2023 Refill Raymond Kemp APRN.COMPENSATION CONSULTING MANAGER Work Phone: [facility] Comment on above: Med Change Request Start: 09-20-2023 End: 09-20-2023 ambulatory SANDRO HINOJOSA Facility:[facility] Start: 09-20-2023 End: 09-20-2023 Patient encounter procedure Raymond Kemp APRN.COMPENSATION CONSULTING MANAGER Work Phone: [facility] Comment on above: Multiple sclerosis ( HCC) (Primary Dx); Rash Start: 09-20-2023 Refill Raymond Kemp APRN.COMPENSATION CONSULTING MANAGER Work Phone: [facility] Comment on above: Med Change Request Start: 09-17-2023 Telephone encounter Jahaira Denis CATALYST IMPREGNATOR.COMPENSATION CONSULTING MANAGER Work Phone: Obstetrics/Gynecology Start: 09-07-2023 Telephone encounter Mallika saucedo OT/L Work Phone: [facility] Occupational Therapy Start: 09-06-2023 Orders Only Raymond Kemp CATALYST IMPREGNATOR.COMPENSATION CONSULTING MANAGER Work Phone: [facility] Comment on above: Multiple sclerosis ( HCC) (Primary Dx); Cognitive communication deficit Start: 08-28-2023 End: 08-29-2023 ambulatory PAM ASHER Not Available Start: 08-15-2023 End: 08-16-2023 ambulatory [facility] Start: 08-14-2023 End: 08-15-2023 ambulatory [facility] Start: 08-14-2023 End: 08-14-2023 Subsequent hospital visit by physician [facility] Op Treatment 01 [facility] ([facility]) Comment on above: Multiple sclerosis e xacerbation (HCC) (Primary Dx) Start: 08-13-2023 End: 08-13-2023 Emergency department patient visit [facility] Start: 08-13-2023 End: 08-13-2023 Emergency department patient visit [facility] Work Phone: [facility] ED Comment on above: Multiple sclerosis e xacerbation (HCC) (Primary Dx) Start: 08-09-2023 End: 08-09-2023 Patient encounter procedure DO Rina Schwerer Work Phone: [facility] Work Phone: Start: 08-09-2023 End: 08-09-2023 ambulatory DO Rina E Schwerer Work Phone: [facility] Work Phone: Start: 07-21-2023 End: 07-21-2023 Emergency department patient visit [facility] Start: 07-19-2023 End: 07-19-2023 Office outpatient visit 15 minutes Sandro Hinojosa MD Work Phone: Internal Medicine [place] Comment on above: Chronic bilateral lo w back pain without sciatica (Primary Dx); Breast pain in female; Multiple sclerosis (HCC); Current every day smoker; Morbid obesity with BMI of 40.0-44.9, adult (HCC) Start: 07-19-2023 End: 07-19-2023 Patient encounter procedure Raymond Pedro HURLEY Work Phone: [facility] Comment on above: Multiple sclerosis ( HCC) (Primary Dx); Demyelinating disease of central nervous system (HCC); Neuropathic pain; Vitamin D deficiency; Spasticity; Constipation, unspecified constipation type; History of dry mouth; Urinary retention Start: 07-05-2023 Specialty Pharmacy Paulo Corey [facility] Comment on above: SPP Neurology - Medi cation Refill (Zeposia ) Start: 07-02-2023 End: 07-03-2023 ambulatory [facility] Start: 06-22-2023 Telephone encounter Ellen Rothman MD Work Phone: [facility] Comment on above: Patient Question Start: 06-12-2023 Specialty Pharmacy Paulo Corey [facility] Comment on above: SPP Neurology - Medi cation Refill (Zeposia) Start: 05-22-2023 Telephone encounter Ellen Rothman MD Work Phone: [facility] Comment on above: Orders (MRI Brain/C- Spine) Start: 05-16-2023 Specialty Pharmacy Paulo Corey [facility] Comment on above: SPP Neurology - Medi cation Refill (Zeposia) Start: 04-18-2023 End: 04-18-2023 Patient encounter procedure Ellen Rothman MD Work Phone: [facility] Comment on above: Multiple sclerosis ( HCC) (Primary Dx); Spasticity; Neuropathic pain; Anxiety and depression; Encounter for medication monitoring; Hypovitaminosis D Start: 04-10-2023 Specialty Pharmacy Paulo Amezquitaohn [facility] Comment on above: SPP Neurology - Medi cation Refill (Zeposia ) Start: 04-08-2023 End: 04-08-2023 Emergency department patient visit DO Rina Reardon Work Phone: [facility] Work Phone: Start: 04-03-2023 End: 04-03-2023 ambulatory Rina Reardon Other [facility] [employer] Other Start: 04-03-2023 Telephone encounter Ellen Rothman MD Work Phone: [address] [place] [address] Comment on above: lab orders to [facility] (CALL PATIENT WHEN SENT) Start: 03-12-2023 Specialty Pharmacy Pauloalonso Corey [facility] Comment on above: SPP Neurology - Medi cation Refill (Zeposia ) Start: 01-29-2023 Specialty Pharmacy Paulo Kim [facility] Comment on above: [facility] Neurology - Medi cation Refill (Zeposia ) Start: 12-25-2022 Refill Roosevelt Fabian Work Phone: [facility] Comment on above: Refill Request Start: 11-23-2022 End: 11-23-2022 ambulatory Nurse Territory Sales Representative Work Phone: Gynecology Comment on above: NO SHOW (Primary Dx) Start: 11-23-2022 End: 11-23-2022 Telemedicine consultation with patient Nurse Territory Sales Representative Work Phone: [facility] Start: 11-20-2022 Telephone encounter Mindi damico APRN.COMPENSATION CONSULTING MANAGER Work Phone: Pre Anesthesia Comment on above: Missed Appointment Start: 11-16-2022 Refill Roosevelt Fabian Work Phone: [facility] Comment on above: Refill Request Start: 10-27-2022 Telephone encounter Corbin Wilson MD Work Phone: Gynecology Comment on above: [employer] Supervisor - O ther (P2P w/LH 11/01/ @10am) Future Appointment Start: 10-25-2022 Patient encounter status Ban Mendoza CATALYST IMPREGNATOR.COMPENSATION CONSULTING MANAGER Work Phone: Gynecology Start: 10-25-2022 Telephone encounter Katya Mendoza MARINO.SHAYLA Work Phone: Gynecology Comment on above: Orders Start: 10-24-2022 Specialty Pharmacy Paulo Corey [facility] Comment on above: SPP Neurology - Medi cation Refill (Zeposia ) Start: 10-12-2022 End: 10-12-2022 ambulatory Rina Schwerer Other [employer] Other Start: 10-12-2022 Telephone encounter Rina Schwerer [facility] Start: 10-09-2022 Registered Recurring DO Kaitli n Schwerer Work Phone: [facility] Work Phone: Start: 10-09-2022 End: 10-09-2022 ambulatory DO Rina E Schwerer Work Phone: [facility] Work Phone: Start: 10-09-2022 End: 10-09-2022 Patient encounter procedure DO Rina Schwerer Work Phone: [facility] [place] Work Phone: Start: 09-11-2022 End: 09-11-2022 ambulatory Rina Schwerer Other [employer] Other Start: 09-11-2022 Telephone encounter Rina Schaefererer [facility] Start: 09-04-2022 Specialty Pharmacy Paulo Corey [facility] Comment on above: SPP Neurology - Medi cation Refill (Zeposia ) Start: 08-17-2022 End: 08-17-2022 PAT [facility] [place] [facility] Work Phone: Pre Anesthesia Comment on above: Pre-op evaluation (P rimary Dx); Multiple sclerosis (HCC); Mixed hyperlipidemia; Current smoker; Recurrent major depressive disorder, remission status unspecified (HCC); Obesity, Class III, BMI >= 40; Suicidal ideation; History of cocaine abuse (HCC); Cerebrovascular accident (CVA), unspecified mechanism (HCC) Start: 08-17-2022 End: 08-17-[address] [facility] [place] [facility] Work Phone: Pre Anesthesia Start: 08-15-2022 Telephone encounter Corbin Wilson MD Work Phone: [facility] Comment on above: Schedule Surgery Start: 08-14-2022 End: 08-14-2022 ambulatory Nurse Territory Sales Representative Work Phone: Gynecology Comment on above: Educational circumst ances (Primary Dx) Start: 08-14-2022 End: 08-14-2022 Telemedicine consultation with patient Nurse Territory Sales Representative Work Phone: [facility] Start: 08-04-2022 End: 08-04-2022 Patient encounter procedure Corbin Wilson MD Work Phone: Gynecology Comment on above: NO SHOW (Primary Dx) Start: 07-27-2022 Specialty Pharmacy Paulo Corey [facility] Comment on above: SPP Neurology - Medi cation Refill (Zeposia) Start: 06-27-2022 Specialty Pharmacy Magali Gregory [facility] Comment on above: SPP Neurology - Medi cation Refill (Zeposia) Start: 06-12-2022 End: 06-12-2022 ambulatory Rina Reardon Other [employer] Other Start: 06-12-2022 Telephone encounter Rina Reardon [facility] [place] Start: 05-31-2022 Specialty Pharmacy Magali Gregory [facility] Comment on above: SPP Neurology - Medi cation Refill (Zeposia) Start: 05-15-2022 Refill Roosevelt Fabian Work Phone: [facility] Comment on above: Refill Request Start: 04-26-2022 Specialty Pharmacy [facility] Comment on above: SPP Neurology - Medi cation Refill (Zeposia) Start: 03-23-2022 Specialty Pharmacy [facility] Comment on above: SPP Neurology - Medi cation Refill (Zeposia) Start: 03-14-2022 End: 03-14-2022 Patient encounter procedure Corbin Wilson MD Work Phone: Obstetrics/Gynecology Comment on above: NO SHOW (Primary Dx) Start: 02-20-2022 Specialty Pharmacy [facility] Comment on above: SPP Neurology - Medi cation Refill (Zeposia ) Start: 02-17-2022 End: 02-17-2022 ambulatory Rina Schwerer Other [employer] Other Start: 02-17-2022 Telephone encounter Rina Almeidar [facility] Start: 02-10-2022 End: 02-10-2022 ambulatory Rina Schwerer Other [employer] Other Start: 02-10-2022 Telephone encounter Rina Reardon [facility] Start: 02-07-2022 Telephone encounter Corbin Wilson MD Work Phone: [facility] Comment on above: Patient Question; Re sults Start: 02-02-2022 Telephone encounter Magdalene Bola TORRES-Isaac Work Phone: Neurology Comment on above: Appointment (m for patient to call so we can get them scheduled for a social work consult) Start: 01-30-2022 Telephone encounter Corbin Wilson MD Work Phone: Gynecology Comment on above: Appointment Start: 01-23-2022 Refill Roosevelt Fabian Work Phone: [facility] Comment on above: Refill Request Start: 01-17-2022 Specialty Pharmacy Magali [facility] Comment on above: SPP Neurology - Medi cation Refill (Zeposia) Start: 12-21-2021 Refill Ellen Rothman MD Work Phone: [facility] Comment on above: Refill Request Start: 12-02-2021 End: 12-02-2021 Patient encounter procedure Roosevelt Hernandez MD Work Phone: [facility] Comment on above: NO SHOW Start: 11-23-2021 Specialty Pharmacy Paulo Corey [facility] Comment on above: SPP Neurology - Medi cation Refill (Zeposia) Start: 10-27-2021 End: 10-27-2021 Patient encounter procedure Magdalene Drake PA-C Work Phone: [facility] Comment on above: Multiple sclerosis ( HCC) (Primary Dx); Neuropathic pain; Spasticity; Blurry vision, bilateral; Anxiety and depression; Homelessness; Medication monitoring encounter Start: 10-14-2021 End: 10-14-2021 ambulatory Rina Schwerer Other [employer] Other Start: 10-14-2021 Telephone encounter Rina Schwerer [facility] Start: 09-20-2021 End: 09-20-2021 ambulatory Rina Schwerer Other [employer] Other Start: 09-20-2021 Office outpatient vi sit 15 minutes Rina Schwerer [facility] Start: 08-23-2021 End: 08-23-2021 Emergency department patient visit REFERRED SELF Facility:[facility] Start: 08-22-2021 End: 08-22-2021 ambulatory Rina Schwerer Other [employer] Other Start: 08-22-2021 Telephone encounter Rina Schwerer [facility] [employer] Start: 08-16-2021 End: 08-16-2021 ambulatory Rina Schwerer Other [employer] Other Start: 08-16-2021 Telephone encounter Rina Schwerer [facility] [employer] Start: 08-04-2021 End: 08-04-2021 ambulatory Rina Schwerer Other [employer] Other Start: 08-04-2021 Telephone encounter Rina Schwerer [facility] [employer] Start: 07-11-2021 End: 07-11-2021 ambulatory Rina Schwerer Other [employer] Other Start: 07-11-2021 Telephone encounter Rina Schwerer [facility] [address] Start: 07-04-2021 End: 07-04-2021 ambulatory Rina Schwerer Other [employer] Other Start: 07-04-2021 Telephone encounter Rina Schwerer [facility] [employer] Start: 06-24-2021 End: 06-24-2021 ambulatory Rina Schwerer Other [employer] Other Start: 06-24-2021 Office outpatient vi sit 25 minutes Rina Schwerer [facility] [place] Start: 03-15-2020 Patient encounter procedure AQUILES S HESS Facility:[facility] Start: 03-02-2020 Patient encounter procedure AQUILES S HESS Facility:[facility] Start: 02-17-2020 Patient encounter procedure GORAN CLINKER Facility:[facility] Start: 12-08-2019 End: 12-09-2019 Patient encounter procedure GORAN CLINKER Facility:[facility] Patient encounter procedure Rina Schwerer Other [employer] Other Procedures Date Procedure Procedure Detail Performing Clinician Start: 08-01-2024 BRAIN & CERVICAL SPI NE MRI DISCRETE DATA [facility] Provider Start: 08-01-2024 Mri brain brain stem w/o w/contrast material Raymond Kemp APRN.COMPENSATION CONSULTING MANAGER Work Phone: Start: 07-10-2024 Assay of magnesium Part h Nain ARMSTRONG Work Phone: Start: 07-08-2024 25 hydroxy includes fractions if performed Yousif Saraiya MD Work Phone: Start: 07-08-2024 Hepatic function panel Yousif Gillette MD Work Phone: Start: 07-07-2024 Ct angiography chest w/contrast/noncontrast Master Pappas MD Work Phone: Start: 07-07-2024 Potassium serum plas ma/whole blood Master Pappas MD Work Phone: Start: 07-07-2024 Troponin I.cardiac [Mass/volume] in Serum or Plasma by Detection limit <= 0.01 ng/mL Master Pappas MD Work Phone: Start: 07-07-2024 Ct head/brain w/o co ntrast material Master Pappas MD Work Phone: Start: 07-07-2024 Radiologic exam ches t 2 views Master Pappas MD Work Phone: Start: 07-07-2024 COVID/INFLUENZA Master Pappas MD Work Phone: Start: 07-07-2024 Assay of magnesium Chao Pappas MD Work Phone: Start: 07-07-2024 NT PRO-BNP Yousif coppola MD Work Phone: Start: 07-07-2024 Troponin I.cardiac [Mass/volume] in Serum or Plasma by Detection limit <= 0.01 ng/mL Master Pappas MD Work Phone: Start: 07-07-2024 Ecg routine ecg w/le ast 12 lds trcg only w/o i&r To Be Assigned Start: 06-10-2024 Us pelvic nonobstetr ic real-time image complete Freda Hernandez APRN.COMPENSATION CONSULTING MANAGER Work Phone: Start: 06-05-2024 Endometrial bx w/wo endocervix bx w/o dilat spx Freda Hernandez APRN.COMPENSATION CONSULTING MANAGER Work Phone: Start: 06-04-2024 Mri spinal canal cer vical w/o & w/contr matrl Raymond Kemp CATALYST IMPREGNATOR.COMPENSATION CONSULTING MANAGER Work Phone: Start: 08-13-2023 Mri brain brain stem w/o w/contrast material Jeffery J Cantu DO Work Phone: Start: 08-13-2023 End: 08-13-2023 Ct head/brain w/o contrast material Jeffery J Cantu DO Work Phone: Start: 08-13-2023 Radiologic exam ches t single view Keo Steven CATALYST IMPREGNATOR - COMPENSATION CONSULTING MANAGER Work Phone: Start: 08-13-2023 Ecg routine ecg w/le ast 12 lds w/i&r Jeffery J Cantu DO Work Phone: Start: 08-13-2023 Comprehensive metabo lic panel Keo Steven CATALYST IMPREGNATOR - COMPENSATION CONSULTING MANAGER Work Phone: Start: 08-13-2023 Drug tst prsmv instr mnt chem analyzers pr date Jeffery J Cantu DO Work Phone: Start: 08-13-2023 Urinalysis microscopic only Jeffery J Cantu DO Work Phone: Start: 08-13-2023 Urnls dip stick/tabl et rgnt auto w/o microscopy Jeffery J Cantu DO Work Phone: Start: 08-09-2023 Ultrasonography of r ight breast DO Rinaradha Reardon Work Phone: Start: 08-09-2023 Bilateral mammography D O Rina Reardon Work Phone: Start: 01-29-2020 Adult depression scr eening assessment Magdalene Drake PA-C Work Phone: Adult health examination Deepak Reardon Other Plan of Treatment Date Care Activity Detail Author Start: 02-13-2029 Screening for malign ant neoplasm of cervix Cervical Cancer Screening [facility] Start: 07-10-2027 Diabetes Screening Diabetes Screenin g [facility] Start: 10-03-2027 Diabetes Screening Diabetes Screenin g [facility] Start: 08-30-2026 Diabetes Screening Diabetes Screentatum vega [facility] Start: 07-02-2026 Diabetes Screening Diabetes Screentatum vega [facility] Start: 08-17-2025 DIABETES SCREEN DIABETES SCREEN [facility] Start: 08-17-2025 Diabetes Screening Diabetes Screenin gary [facility] Start: 01-08-2025 End: 01-08-2025 Patient encounter procedure 01/08/2025 2:30 PM EDT Office Visit [facility] [address] [facility] [address] Ellen Rothman MD [address] [place] [address] [facility] Comment on above: MS Start: 01-04-2025 End: 04-05-2025 CBC W Auto Differential panel - Blood COMPLETE BLOOD COUNT AND DIFFERENTIAL Lab Routine Multiple sclerosis (HCC) Expected: 01/04/2025 (Approximate), Expires: 04/05/2025 [facility] Work Phone: Comment on above: Expected: 01/04/2025 (Approximate), Expires: 04/05/2025 Start: 01-04-2025 End: 04-05-2025 Comprehensive metabolic 2000 panel - Serum or Plasma COMPREHENSIVE METABOLIC PANEL Lab Routine Multiple sclerosis (HCC) Expected: 01/04/2025 (Approximate), Expires: 04/05/2025 [facility] Comment on above: Expected: 01/04/2025 (Approximate), Expires: 04/05/2025 Start: 11-10-2024 End: 11-10-2024 Patient encounter procedure 11/10/2024 1:00 PM EDT Office Visit Neurology [address] [place] [address] Angie Mora, MARINO.COMPENSATION CONSULTING MANAGER [address] [place] [address] Multiple sclerosis (HCC) [G35] Neurology Comment on above: Multiple sclerosis ( HCC) [G35] Start: 09-30-2024 End: 09-30-2024 Specialty Pharmacy 09/30/2024 11:00 AM EST [facility]ty [facility]acy [facility] [address] [place], [place] [id number] Pharmacist, [email or web address] [place] [address] [address] [place] [place] [phone] REFILL- Zeposia (verify address) -- [facility] Comment on above: REFILL- Zeposia ([place] address) -- Start: 09-25-2024 End: 09-25-2024 Patient encounter procedure Gynecology Comment on above: MIGS CONSULT Start: 09-02-2024 End: 09-02-2024 Specialty Pharmacy 09/02/2024 11:00 AM EST Specialty Pharmacy [facility] [address] [place], [place] [phone] Pharmacist, [id number] [address] [place] [address] [place] [address] REFILL- Zeposia (verify address) -- no vm wamb txt 08/28 [facility] Comment on above: REFILL- Zeposia ([place] address) -- no vm wamb txt 08/28 Start: 08-29-2024 End: 08-29-2024 Patient encounter procedure Neurology Comment on above: Multiple sclerosis ( HCC) [G35]; Snoring [R06.83] REFILL- Zeposia (exp . ) verify address Multiple sclerosis ( HCC) [G35]; Snoring [R06.83] no cpap Start: 08-27-2024 Covid-19 Vaccine (#1) Covid-19 Vacci ne (#1) [facility] Comment on above: Postponed from 05/11 (Declined at this time) Start: 08-27-2024 Covid-19 Vaccine () Covid-19 Vaccine () [facility] Comment on above: Postponed from 04/06 (Declined at this time) Start: 08-27-2024 Urine microalbumin profile DTaP,Tdap,Td Vaccine (1 - Tdap) [facility] Comment on above: Postponed from 11/09 (Declined at this time) Start: 08-21-2024 End: 02-12-2026 OCT NEURO INST OCT NEURO INST OPHT Imaging Routine Multiple sclerosis (HCC) Expected: 08/21/2024 (Approximate), Expires: 02/12/2026 [facility] Comment on above: Expected: 08/21/2024 (Approximate), Expires: 02/12/2026 Start: 08-21-2024 End: 08-21-2024 Patient encounter procedure 08/21/2024 1:45 PM EST Office Visit [facility] [address] [place] [place] [address] Raymond Kemp, CATALYST IMPREGNATOR.COMPENSATION CONSULTING MANAGER [address] [place] [address] Return in about 3 months (around 08/08/2024). [facility] Comment on above: Return in about 3 mo nths (around 08/08/2024). Start: 08-14-2024 End: 08-14-2024 Patient encounter procedure 08/14/2024 9:30 AM EST Office Visit [facility] [address] [facility] [place] [address] Raymond Kemp, CATALYST IMPREGNATOR.COMPENSATION CONSULTING MANAGER [address] [place] [address] Return in about 3 months (around 08/08/2024). [facility] Comment on above: Return in about 3 mo nths (around 08/08/2024). Start: 08-09-2024 Screening for malign ant neoplasm of breast Mammogram Screening [facility] Start: 08-04-2024 End: 08-04-2024 Specialty Pharmacy 08/04/2024 11:00 AM EST Specialty Pharmacy [facility] [address] [place] [address] [id number] [place], [place] [phone] Pharmacist, [facility] [address] [place] [address] [place] [address] REFILL- Zeposia (exp. ) verify address [facility] Comment on above: REFILL- Zeposia (exp . ) verify address Start: 08-01-2024 End: 03-01-2025 MR Brain WO and W contrast IV MRI BRAIN WO/W IVCON Radiology Routine Multiple sclerosis (HCC) Encounter for medication monitoring Expected: 08/01/2024 (Approximate), Expires: 03/01/2025 [facility] Comment on above: Expected: 08/01/2024 (Approximate), Expires: 03/01/2025 Start: 08-01-2024 End: 08-01-2024 Patient encounter procedure 08/01/2024 9:20 AM EST Appointment Radiology [address] [place] [address] Multiple sclerosis (HCC) [G35]; Encounter for medication monitoring [Z51.81] Radiology Comment on above: Multiple sclerosis ( HCC) [G35]; Encounter for medication monitoring [Z51.81] Start: 07-17-2024 End: 07-17-2024 Patient encounter procedure Sleep Disorders Comment on above: Multiple sclerosis ( HCC) [G35]; Snoring [R06.83] f/u Start: 07-08-2024 End: 07-08-2024 Specialty Pharmacy 07/08/2024 11:00 AM EST Specialty Pharmacy [facility] [employer] [address] [address] Pharmacist, [facility] [address] [place] [phone] REFILL- Zeposia (exp. ) verify address-- vm not set up/wamb 07/04 [facility] Comment on above: REFILL- Zeposia (exp . ) verify address-- vm not set up/wamb 07/04 Start: 07-04-2024 End: 07-04-2024 [facility]ty [facility]acy [facility] Comment on above: REFILL- Zeposia (exp . ) verify address REFILL- Zeposia (exp . ) verify address--ref req Start: 06-19-2024 End: 06-19-2024 Specialty Pharmacy 06/19/2024 11:00 AM EST Specialty Pharmacy [facility] [employer] [address] [place] [address] Pharmacist, [facility] [address] [address] REFILL- Zeposia (exp. ) --multiple attempts (wam txt /mcm) [facility] Comment on above: REFILL- Zeposia (exp . ) --multiple attempts (wam txt /mcm) Start: 06-17-2024 End: 09-16-2024 Hemoglobin A1c in Blood HEMOGLOBIN A1C Lab Routine Prediabetes Expected: 06/17/2024, Expires: 09/16/2024 [facility] Work Phone: Comment on above: Expected: 06/17/2024 , Expires: 09/16/2024 Start: 06-16-2024 End: 06-16-2024 Patient encounter procedure 06/16/2024 3:00 PM EST Office Visit Gynecology [address] [address] Freda Hernandez, CATALYST IMPREGNATOR.COMPENSATION CONSULTING MANAGER [address] [place] [address] FOLLOW UP Gynecology Comment on above: FOLLOW UP Start: 06-10-2024 End: 06-10-2024 Manual pelvic examination 06/10/2024 1:00 PM EST Procedure Gynecology [address] [address] Remote, Geotechnician Main Us [address] [place] [phone] PELVIC ULTRASOUND Gynecology Comment on above: PELVIC ULTRASOUND Start: 06-09-2024 End: 06-09-2024 Patient encounter procedure 06/09/2024 9:00 AM EST Office Visit Internal Medicine [place] [address] [facility] [place] [address] Ciera Juarez, CATALYST IMPREGNATOR.COMPENSATION CONSULTING MANAGER [address] [facility] [place] [address] Establish Care Internal Medicine [place] Comment on above: Establish Care Start: 06-05-2024 End: 06-05-2025 US Pelvis [facility] Anc Imaging Routine PMB (postmenopausal bleeding) Expected: 06/05/2024, Expires: 06/05/2025 [facility] Work Phone: Comment on above: Expected: 06/05/2024 , Expires: 06/05/2025 Start: 06-05-2024 End: 06-05-2024 [facility]ty [facility] Comment on above: REFILL- Zeposia (exp . ) --no vm, wamb sent 05/26,no vm 05/29 &06/02, PMB (postmenopausal bleeding) [N95.0] Start: 06-04-2024 End: 06-04-2024 Patient encounter procedure 06/04/2024 8:40 AM EDT Appointment Radiology [address] [place], [place] [id number] Multiple sclerosis (HCC) [G35] Radiology Comment on above: Multiple sclerosis ( HCC) [G35] Start: 05-29-2024 End: 05-29-2024 [facility]ty [facility] Comment on above: REFILL- Zeposia (exp . ) --no vm, wamb sent 05/26 PMB (postmenopausal bleeding) [N95.0] Start: 05-26-2024 End: 05-26-2024 Specialty Pharmacy 05/26/2024 11:00 AM EDT [facility] [address] [place], [place] [id number] [phone] Pharmacist, [facility] [address] [place] [address] [phone] REFILL- Zeposia (exp. ) -- [facility] Comment on above: REFILL- Zeposia (exp . ) -- Start: 05-23-2024 End: 05-23-2024 Patient encounter procedure 05/23/2024 8:30 AM EDT Office Visit Orthopaedics [address] [place] [address] Kelley Ruffin MD [address] [place] [address] [phone] Pain in joint of right hand [M25.541]; Multiple sclerosis (HCC) [G35] Orthopaedics Comment on above: Pain in joint of rig ht hand [M25.541]; Multiple sclerosis (HCC) [G35] Start: 05-21-2024 End: 05-21-2024 Patient encounter procedure 05/21/2024 11:30 AM EDT Office Visit Obstetrics/Gynecology [address] [facility] [place] [address] Alpa Ferro APRN.CN [address] [facility] [place] [address] PMB (postmenopausal bleeding) [N95.0] Obstetrics/Gynecology Comment on above: PMB (postmenopausal bleeding) [N95.0] Start: 05-19-2024 End: 05-19-2024 Patient encounter procedure 05/19/2024 8:30 AM EDT Office Visit [facility] Ophthalmology [address] [place] [address] Reginald Demarco, OD [address] [place] [address] Multiple sclerosis-Blurry vision-eye exam Ophthalmology Comment on above: Multiple sclerosis-B lurry vision-eye exam Start: 05-08-2024 End: 08-07-2024 Cobalamin (Vitamin B12) [Mass/volume] in Serum or Plasma [facility] Comment on above: Expected: 05/08/2024 , Expires: 08/07/2024 Start: 05-08-2024 End: 08-07-2024 Comprehensive metabolic 2000 panel - Serum or Plasma [facility] Comment on above: Expected: 05/08/2024 , Expires: 08/07/2024 Start: 05-08-2024 End: 08-07-2024 Iron and Iron binding capacity panel - Serum or Plasma [facility] Comment on above: Expected: 05/08/2024 , Expires: 08/07/2024 Start: 05-08-2024 End: 05-08-2024 Patient encounter procedure 05/08/2024 9:30 AM EDT Office [address] [facility] [address] [facility] [address] Raymond Kemp APRN.COMPENSATION CONSULTING MANAGER [address] [place] [address] Return in about 3 months (around 05/02/2024). [facility] Comment on above: Return in about 3 mo nths (around 05/02/2024). Start: 04-14-2024 End: 04-14-2024 Specialty Pharmacy 04/14/2024 11:00 AM EDT Specialty Pharmacy [facility] [address] [place] [phone] Pharmacist, [facility] [address] [place] [phone] REFILL- Zeposia (exp. ) --wamb sent 04/09 [facility] Comment on above: REFILL- Zeposia (exp . ) --wamb sent 04/09 Start: 04-06-2024 Covid-19 Vaccine ( season) Covid-19 Vaccine ( season) [facility] Start: 04-06-2024 Covid-19 Vaccine ( season) Covid-19 Vaccine ( season) [facility] Start: 04-06-2024 Influenza vaccination [facility] Start: 03-17-2024 End: 03-17-2024 Specialty Pharmacy 03/17/2024 11:00 AM EDT Specialty Pharmacy [facility] [address] [place] [phone] Pharmacist, [facility] [address] [place] [phone] REFILL- Zeposia (exp. ) --wamb sent 03/13 [facility] Comment on above: REFILL- Zeposia (exp . ) --wamb sent 03/13 Start: 03-13-2024 End: 03-13-2024 Specialty Pharmacy 03/13/2024 11:00 AM EDT Specialty Pharmacy [facility] [address] [place] [phone] Pharmacist, [facility] [address] [place] [address] [place] [address] REFILL- Zeposia (exp. ) -- [facility] Comment on above: REFILL- Zeposia (exp . ) -- Start: 03-12-2024 End: 03-12-2024 Patient encounter procedure 03/12/2024 2:20 PM EDT Appointment Mammography [address] [place] [address] mammogram screen Mammography Comment on above: mammogram screen Start: 02-26-2024 End: 02-26-2024 Patient encounter procedure 02/26/2024 11:30 AM EDT Office Visit Obstetrics/Gynecology [address] [place] [address] [place] [address] [place] [address] PMB (postmenopausal bleeding) [N95.0] Obstetrics/Gynecology Comment on above: PMB (postmenopausal bleeding) [N95.0] Start: 02-14-2024 End: 02-14-2024 Patient encounter procedure 02/14/2024 8:40 AM EDT Office Visit OB/Gynecology [address] [place] [address] [place] [address] [place] [address] FIBROIDS OB/Gynecology Comment on above: FIBROIDS Start: 02-11-2024 End: 02-11-2024 Specialty Pharmacy 02/11/2024 11:00 AM EDT Specialty Pharmacy [facility] [address] [place] [address] [id number] [place] [address] Pharmacist, [facility] [address] [place] [address] [place] [address] REFILL- Zeposia (exp. ) -- wamb sent 02/04 [facility] Comment on above: REFILL- Zeposia (exp . ) -- wamb sent 02/04 Start: 02-08-2024 End: 02-08-2024 Patient encounter procedure 02/08/2024 8:00 AM EDT Office Visit Internal Medicine [place] [address] [place] [address] Sandro Burgos MD [address] [place] [address] FOLLOW UP Internal Medicine [place] Comment on above: FOLLOW UP Start: 02-05-2024 End: 02-05-2024 Specialty Pharmacy 02/05/2024 11:00 AM EDT Specialty Pharmacy [facility] [facility] [id number] [place], [place] [phone] Pharmacist, [facility] [address] [place] [phone] REFILL- Zeposia (exp. ) -- [facility] Comment on above: REFILL- Zeposia (exp . ) -- Start: 02-03-2024 Influenza vaccination Influenza Vacc ine (#1) [facility] Comment on above: Postponed from 04/06 (Declined at this time) Start: 01-31-2024 End: 05-01-2024 25-hydroxyvitamin D3 [Mass/volume] in Serum or Plasma VITAMIN D 25 HYDROXY Lab Routine Multiple sclerosis (HCC) Encounter for medication monitoring Vitamin D deficiency Other fatigue Expected: 01/31/2024, Expires: 05/01/2024 [facility] Comment on above: Expected: 01/31/2024 , Expires: 05/01/2024 Start: 01-31-2024 End: 05-01-2024 CBC W Auto Differential panel - Blood COMPLETE BLOOD COUNT AND DIFFERENTIAL Lab Routine Multiple sclerosis (HCC) Encounter for medication monitoring Expected: 01/31/2024, Expires: 05/01/2024 [facility] Work Phone: Comment on above: Expected: 01/31/2024 , Expires: 05/01/2024 Start: 01-31-2024 End: 05-01-2024 Cobalamin (Vitamin B12) [Mass/volume] in Serum or Plasma VITAMIN B12 Lab Routine Multiple sclerosis (HCC) Other fatigue Expected: 01/31/2024, Expires: 05/01/2024 [facility] Comment on above: Expected: 01/31/2024 , Expires: 05/01/2024 Start: 01-31-2024 End: 05-01-2024 Comprehensive metabolic 2000 panel - Serum or Plasma COMPREHENSIVE METABOLIC PANEL Lab Routine Multiple sclerosis (HCC) Encounter for medication monitoring Expected: 01/31/2024, Expires: 05/01/2024 [facility] Comment on above: Expected: 01/31/2024 , Expires: 05/01/2024 Start: 01-31-2024 End: 05-01-2024 Methylmalonate [Moles/volume] in Serum or Plasma METHYLMALONIC ACID Lab Routine Multiple sclerosis (HCC) Other fatigue Expected: 01/31/2024, Expires: 05/01/2024 [facility] Comment on above: Expected: 01/31/2024 , Expires: 05/01/2024 Start: 01-14-2024 End: 01-14-2024 Specialty Pharmacy 01/14/2024 11:00 AM EDT Specialty [facility]acy [facility] [address] [address] Pharmacist, [facility] [address] [place] [address] [place] [address] REFILL- Zeposia (exp. ) --lvm 01/09 [facility] Comment on above: REFILL- Zeposia (exp . ) --lvm 01/09 Start: 12-20-2023 End: 12-20-[address] [facility] Comment on above: Return in about 3 mo nths (around 12/19/2023). REFILL- Zeposia (exp . ) -- lvm 12/16 Start: 12-17-2023 End: 12-17-2023 Specialty Pharmacy 12/17/2023 11:00 AM EDT Specialty [facility]acy [facility] [employer] [address] [phone] Pharmacist, [facility] [address] [place] [address] [place] [address] REFILL- Zeposia (exp. ) -- [facility] Comment on above: REFILL- Zeposia (exp . ) -- Start: 09-17-2023 End: 09-17-2024 US Pelvis PELVIC US [facility] Anc Imaging Routine Fibroid Expected: 09/17/2023, Expires: 09/17/2024 [facility] Work Phone: Comment on above: Expected: 09/17/2023 , Expires: 09/17/2024 Start: 08-15-2023 End: 08-15-2023 Patient encounter procedure 08/15/2023 12:00 PM EST Appointment [facility] ([facility] [address] [place] [address] Dr dafne, Momo, DX: MS [facility] ([facility]) Comment on above: Dr leos Iqbal , DX: [place] Start: 08-02-2023 End: 08-17-2024 Mri spinal canal thoracic w/o & w/contr matrl MRI THORACIC SPINE WO/W IVCON Radiology Routine Multiple sclerosis (HCC) Demyelinating disease of central nervous system (HCC) Expected: 08/02/2023 (Approximate), Expires: 08/17/2024 [facility] Work Phone: Comment on above: Expected: 08/02/2023 (Approximate), Expires: 08/17/2024 Start: 07-19-2023 End: 10-18-2023 Bacteria identified in Urine by Culture [facility] Work Phone: Comment on above: Expected: 07/19/2023 , Expires: 10/18/2023 Start: 06-27-2023 End: 09-26-2023 25-hydroxyvitamin D3 [Mass/volume] in Serum or Plasma VITAMIN D 25 HYDROXY Lab Routine Multiple sclerosis (HCC) Encounter for medication monitoring Vitamin D deficiency Expected: 06/27/2023, Expires: 09/26/2023 [facility] Work Phone: Comment on above: Expected: 06/27/2023 , Expires: 09/26/2023 Start: 06-27-2023 End: 09-26-2023 CBC W Auto Differential panel - Blood CBC + DIFF Lab Routine Multiple sclerosis (HCC) Encounter for medication monitoring Expected: 06/27/2023, Expires: 09/26/2023 [facility] Work Phone: Comment on above: Expected: 06/27/2023 , Expires: 09/26/2023 Start: 06-27-2023 End: 09-26-2023 Comprehensive metabolic 2000 panel - Serum or Plasma COMP METABOLIC PANEL Lab Routine Multiple sclerosis (HCC) Encounter for medication monitoring Expected: 06/27/2023, Expires: 09/26/2023 [facility] Work Phone: Comment on above: Expected: 06/27/2023 , Expires: 09/26/2023 Start: 04-18-2023 End: 06-18-2023 25-hydroxyvitamin D3 [Mass/volume] in Serum or Plasma VITAMIN D 25 HYDROXY Lab Routine Multiple sclerosis (HCC) Encounter for medication monitoring Expected: 04/18/2023, Expires: 06/18/2023 [facility] Work Phone: Comment on above: Expected: 04/18/2023 , Expires: 06/18/2023 Start: 04-18-2023 End: 06-18-2023 CBC W Auto Differential panel - Blood CBC + DIFF Lab Routine Multiple sclerosis (HCC) Encounter for medication monitoring Expected: 04/18/2023, Expires: 06/18/2023 [facility] Work Phone: Comment on above: Expected: 04/18/2023 , Expires: 06/18/2023 Start: 04-18-2023 End: 06-18-2023 Comprehensive metabolic 2000 panel - Serum or Plasma COMP METABOLIC PANEL Lab Routine Multiple sclerosis (HCC) Encounter for medication monitoring Expected: 04/18/2023, Expires: 06/18/2023 [facility] Work Phone: Comment on above: Expected: 04/18/2023 , Expires: 06/18/2023 Start: 04-06-2023 Influenza vaccination [facility] Start: 04-03-2023 End: 06-03-2023 25-hydroxyvitamin D3 [Mass/volume] in Serum or Plasma VITAMIN D 25 HYDROXY Lab Routine Multiple sclerosis (HCC) Medication monitoring encounter Vitamin D deficiency Expected: 04/03/2023, Expires: 06/03/2023 [facility] Work Phone: Comment on above: Expected: 04/03/2023 , Expires: 06/03/2023 Start: 04-03-2023 End: 06-03-2023 CBC W Auto Differential panel - Blood CBC + DIFF Lab Routine Multiple sclerosis (HCC) Medication monitoring encounter Expected: 04/03/2023, Expires: 06/03/2023 [facility] Work Phone: Comment on above: Expected: 04/03/2023 , Expires: 06/03/2023 Start: 04-03-2023 End: 06-03-2023 Comprehensive metabolic 2000 panel - Serum or Plasma COMP METABOLIC PANEL Lab Routine Multiple sclerosis (HCC) Medication monitoring encounter Expected: 04/03/2023, Expires: 06/03/2023 [facility] Work Phone: Comment on above: Expected: 04/03/2023 , Expires: 06/03/2023 Start: 03-06-2023 Influenza vaccination Flu vaccine (# 1) [facility] Start: 01-09-2023 End: 03-11-2023 25-hydroxyvitamin D3 [Mass/volume] in Serum or Plasma VITAMIN D 25 HYDROXY Lab Routine Multiple sclerosis (HCC) Medication monitoring encounter Vitamin D deficiency Expected: 01/09/2023, Expires: 03/11/2023 [facility] Work Phone: Comment on above: Expected: 01/09/2023 , Expires: 03/11/2023 Start: 01-09-2023 End: 03-11-2023 CBC W Auto Differential panel - Blood CBC + DIFF Lab Routine Multiple sclerosis (HCC) Medication monitoring encounter Expected: 01/09/2023, Expires: 03/11/2023 [facility] Work Phone: Comment on above: Expected: 01/09/2023 , Expires: 03/11/2023 Start: 01-09-2023 End: 03-11-2023 Comprehensive metabolic 2000 panel - Serum or Plasma COMP METABOLIC PANEL Lab Routine Multiple sclerosis (HCC) Medication monitoring encounter Expected: 01/09/2023, Expires: 03/11/2023 [facility] Work Phone: Comment on above: Expected: 01/09/2023 , Expires: 03/11/2023 Start: 11-04-2022 End: 01-04-2023 CBC panel - Blood by Automated count CBC Lab Routine Encounter for pre-operative laboratory testing Expected: 11/04/2022 (Approximate), Expires: 01/04/2023 [facility] Work Phone: Comment on above: Expected: 11/04/2022 (Approximate), Expires: 01/04/2023 Start: 11-04-2022 End: 01-04-2023 Comprehensive metabolic 2000 panel - Serum or Plasma COMP METABOLIC PANEL Lab Routine Encounter for pre-operative laboratory testing Expected: 11/04/2022 (Approximate), Expires: 01/04/2023 [facility] Work Phone: Comment on above: Expected: 11/04/2022 (Approximate), Expires: 01/04/2023 Start: 11-04-2022 End: 01-04-2023 CONFIRM BLOOD TYPE CONFIRM BLOOD TYPE Blood Bank Routine Encounter for pre-operative laboratory testing Expected: 11/04/2022 (Approximate), Expires: 01/04/2023 [facility] Work Phone: Comment on above: Expected: 11/04/2022 (Approximate), Expires: 01/04/2023 Start: 11-04-2022 End: 01-04-2023 TYPE AND SCREEN,30 DAY TYPE AND SCREEN,30 DAY Blood Bank Routine Encounter for pre-operative laboratory testing Expected: 11/04/2022 (Approximate), Expires: 01/04/2023 [facility] Work Phone: Comment on above: Expected: 11/04/2022 (Approximate), Expires: 01/04/2023 Start: 08-17-2022 End: 10-17-2022 Basic metabolic 2000 panel - Serum or Plasma [facility] Work Phone: Comment on above: Expected: 08/17/2022 , Expires: 10/17/2022 Start: 08-17-2022 End: 10-17-2022 CONFIRM BLOOD TYPE [facility] Work Phone: Comment on above: Expected: 08/17/2022 , Expires: 10/17/2022 Start: 08-17-2022 End: 10-17-2022 TYPE AND SCREEN,30 DAY [facility] Work Phone: Comment on above: Expected: 08/17/2022 , Expires: 10/17/2022 Start: 04-06-2022 Influenza vaccination [facility] Start: 10-27-2021 End: 12-27-2021 CBC W Auto Differential panel - Blood CBC + DIFF Lab Routine Multiple sclerosis (HCC) Medication monitoring encounter Expected: 10/27/2021, Expires: 12/27/2021 [facility] Work Phone: Comment on above: Expected: 10/27/2021 , Expires: 12/27/2021 Start: 10-27-2021 End: 12-27-2021 HEPATIC FUNCTION PNL HEPATIC FUNCTION PNL Lab Routine Multiple sclerosis (HCC) Medication monitoring encounter Expected: 10/27/2021, Expires: 12/27/2021 [facility] Work Phone: Comment on above: Expected: 10/27/2021 , Expires: 12/27/2021 Start: 04-06-2021 Influenza vaccination INFLUENZA (#1) [facility] Start: 01-28-2021 Adult depression screening assessment DEPRESSION SCREENING [facility] Start: 11-10-2019 Screening for malign ant neoplasm of breast Breast cancer screen [facility] Start: 11-10-2019 Shingles vaccine (1 of 2) Shingles vaccine (1 of 2) [facility] Start: 11-10-2019 SHINGRIX VACCINE (1 of 2) SHINGRIX VACCINE (1 of 2) [facility] Start: 2014 COLOGUARD (FIT-DNA) COLOGUARD (FIT-D NA) [facility] Start: 2014 Colonoscopy COLONOSCOPY [facility] Start: 2014 COLORECTAL CANCER SCREENING COLORECTAL CANCER SCREENING [facility] Start: [address] COLONOGRAPHY [facility] Start: 2014 DIABET[facility]CREEN [facility] Start: 2014 FECAL OCCULT BLOOD FECAL OCCULT BLOO D [facility] Start: 2014 Lipid 1996 panel - S real or Plasma Lipid Screening [facility] Start: 2014 Lipid panel [facility] Start: 2014 LIPID SCREEN LIPID SCREEN [facility] Start: 2014 Screening for malign ant neoplasm of colon [facility] Start: 2014 SIGMOIDOSCOPY SIGMOIDOSCOPY [facility] Start: 2009 Mammography [facility] Start: 2009 Screening for malign ant neoplasm of breast [facility] Start: 2004 Diabetes screen Diabetes screen [facility] Start: 11-10-1999 HPV TESTING HPV TESTING [facility] Start: 11-10-1999 Screening for malign ant neoplasm of cervix [facility] Start: 1990 PAP TESTING PAP TESTING [facility] Start: 1990 Screening for malign ant neoplasm of cervix [facility] Start: 1988 DTaP/Tdap/Td vaccine (1 - Tdap) DTaP/Tdap/Td vaccine (1 - Tdap) [facility] Start: 1988 Hepatitis A (HAV) Vaccine (optional start 19+ years) Hepatitis A (HAV) Vaccine (optional start 19+ years) [facility] Start: 1988 Hepatitis B vaccination Hepati tis B (HBV) Vaccine (1 of 3 - 19+ 3-dose series) [facility] Start: 1988 Hepatitis B Vaccine (1 of 3 - 19+ 3-dose series) Hepatitis B Vaccine (1 of 3 - 19+ 3-dose series) [facility] Start: 1988 Shingles (RZV) Vacci ne (1 of 2) Shingles (RZV) Vaccine (1 of 2) [facility] Start: 1988 Urine microalbumin profile [facility] Start: 11-10-1987 Anxiety Screening Anxiety Screening [facility] Start: 11-10-1987 HEPATITIS C SCREENING HEPATITIS C SC REENING [facility] Start: 11-10-1987 Hepatitis C screening [facility] Start: 11-10-1987 HIV SCREENING HIV SCREENING [facility] Start: 11-10-1987 HIV screening HIV Screening [facility] Start: 11-10-1987 Tdap Booster [facility] Start: 1984 HIV screening [facility] Start: 1981 Depression Screen Depression Screen [facility] Start: 11-10-1979 Lipid panel Lipids [facility] Start: 11-10-1975 PNEUMOCOCCAL (1 - PCV) PNEUMOCOCCAL (1 - PCV) [facility] Start: 11-10-1975 Pneumococcal vaccination Pneum ococcal Vaccine (1 - PCV) [facility] Start: 1974 COVID-19 VACCINE (#1) COVID-19 VACCI NE (#1) [facility] Start: 1974 COVID-19 VACCINE (1) COVID-19 VACCIN E (1) [facility] Start: 05-11-1970 COVID-19 VACCINE (#1) COVID-19 VACCI NE (#1) [facility] Start: 1969 HEPATITIS B (1 of 3 - 3-dose series) HEPATITIS B (1 of 3 - 3-dose series) [facility] Start: 1969 Hepatitis B Vaccine (1 of 3 - 3-dose series) Hepatitis B Vaccine (1 of 3 - 3-dose series) [facility] Start: 1969 Screening for malign ant neoplasm of colon Colonoscopy [facility] EKG 12 Lead EKG 12 Lead ECG STAT 08/13/2023 12:21 PM EST [facility] End: 08-17-2024 [facility] Radiology Routine Breast pain in female 1 Occurrences starting 07/19/2023 until 08/17/2024 [facility] Work Phone: Comment on above: 1 Occurrences starti ng 07/19/2023 until 08/17/2024 End: 03-15-2025 MG Breast Screening ELIZABETH SCREENING Radiology Routine Encounter for screening mammogram for malignant neoplasm of breast 1 Occurrences starting 02/14/2024 until 03/15/2025 [facility] Comment on above: 1 Occurrences starti ng 02/14/2024 until 03/15/2025 End: 06-07-2025 MR Cervical spine WO and W contrast IV MRI CERVICAL SPINE WO/W IVCON Radiology Routine Multiple sclerosis (HCC) 1 Occurrences starting 05/08/2024 until 06/07/2025 [facility] Comment on above: 1 Occurrences starti ng 05/08/2024 until 06/07/2025 End: 05-17-2024 Mri brain brain stem w/o w/contrast material MRI BRAIN WO/W IVCON Radiology Routine Multiple sclerosis (HCC) Encounter for medication monitoring 1 Occurrences starting 04/18/2023 until 05/17/2024 [facility] Work Phone: Comment on above: 1 Occurrences starti ng 04/18/2023 until 05/17/2024 End: 05-17-2024 Mri spinal canal cervical w/o & w/contr matrl MRI CERVICAL SPINE WO/W IVCON Radiology Routine Multiple sclerosis (HCC) Encounter for medication monitoring 1 Occurrences starting 04/18/2023 until 05/17/2024 [facility] Work Phone: Comment on above: 1 Occurrences starti ng 04/18/2023 until 05/17/2024 PAP TEST PAP TEST Lab Huy lozano Encounter for Papanicolaou smear for cervical cancer screening Ordered: 02/14/2024 [facility] Work Phone: Comment on above: Ordered: 02/14/2024 Patient Education Insect Bites a nd Stings ED [facility] Work Phone: Patient referral [facility] Work Phone: SURGICAL PATHOLOGY SURGICAL PATH OLOGY Lab Routine PMB (postmenopausal bleeding) 06/05/2024 2:13 PM EDT [facility] End: 06-07-2025 XR Hand - right PA and Lateral and Oblique XR HAND GENERAL 3V PA/LAT/OBL RIGHT Radiology Routine Pain in joint of right hand Multiple sclerosis (HCC) 1 Occurrences starting 05/08/2024 until 06/07/2025 [facility] Work Phone: Comment on above: 1 Occurrences starti ng 05/08/2024 until 06/07/2025 [facility] [facility] Immunizations Immunization Date Immunization Notes Care Provider Nina reyes 08-27-2023 pneumococcal conjuga te (PCV20) vaccine, 20 valent (PREVNAR 20) Raymond Kemp APRN.CNP Work Phone: [facility] Payers Date Payer Category Payer Medicaid (Managed Care) STEVE FELIX Member Subscriber Plan / Payer (Effective 2024-Present) Name: Bryan Cruz Relation to Subscriber: Self Name: Bryan Cruz Payer ID: [id number] (NAIC) Group ID: [id number] Type: Medicaid HMO Address: [place] [id number] 2023 Self-pay [id number] 2023 Medicaid [id number] 2023 Unknown [id number]. [id number] 2018 Medicaid [facility] MEDICAID [id number] 2018-Present [phone] [address] [place] [address] Medicaid [id number] 2018 Medicaid [id number]. [id number] 1969 Unknown [id number] 2.16.840.1.465123.3.579.2. 593 1969 Unknown [id number] 2.16.840.1.800323.3.579.2. 593 1969 Unknown [id number] 2.16.840.1.924211.3.579.2. 593 1969 Unknown [id number] 2.16.840.1.584943.3.579.2. 593 1969 Unknown [id number] 2.16.840.1.805441.3.579.2. 647 1969 Unknown [id number] 2.16.840.1.671411.3.579.2. 173 1969 Unknown [id number] 2.16.840.1.803244.3.579.2. 173 1969 Unknown [id number] 2.16.840.1.179339.3.579.2. 173 1969 Unknown [id number] 2.16.840.1.034029.3.579.2. 173 1969 Unknown [id number] 2.16.840.1.674617.3.579.2. 983 1969 Unknown [id number] 2.16.840.1.775272.3.579.2. 1259 1969 Unknown [id number] 2.16.840.1.833608.3.579.2. 1259 1969 Unknown [id number] 2.16.840.1.145430.3.579.2. 1259 1969 Unknown [id number] 2.16.840.1.256298.3.579.2. 732 1969 Unknown [id number] 2.16.840.1.184619.3.579.2. 732 1969 Unknown [id number] 2.16.840.1.132572.3.579.2. 732 1969 Unknown [id number] 2.16.840.1.009388.3.579.2. 732 1959 Unknown [id number] Medicaid Medicaid Out of State [id number] Unknown [id number] 2.16.840.1.744918.3.579.2. 531 Unknown [id number] 2.16.840.1.974023.3.579.2. 531 Unknown [id number] 2.16.840.1.448302.3.579.2. 531 Social History Date Type Detail Facility Start: 02-17-2020 End: 08-17-2022 Tobacco smoking status NHIS Occasional tobacco smoker [facility] Start: 02-17-2020 End: 08-17-2022 Tobacco use and exposure Smokeless tobacco non-user [facility] Start: 10-27-2021 End: 06-16-2024 Alcohol intake Ex-drinker (finding) [facility] Start: 1970 Sex Assigned At Not on file [facility] Start: 10-17-2021 End: 03-23-2022 Exposure to SARS-CoV-2 (event) Not sure [facility] Start: 08-17-2022 End: 08-04-2024 Sex Assigned At [facility] History of tobacco use Cigarette Smoker [facility] Start: 08-17-2022 Tobacco Comment Not daily; 3-4 per day when she does smoke. [facility] Start: 02-17-2022 Tobacco smoking stat us ORIS Ex-smoker (finding) [facility] Start: 1970 Sex Assigned At Female F [facility] Start: 08-17-2022 End: 08-04-2024 History of Social function [facility] Adult Depression Screening Assessment 5 [facility] Start: 04-08-2023 End: 04-08-2023 Tobacco smoking status NHIS Never smoked tobacco (finding) [facility] Has the [employer], [employer], [employer], or water [employer] threatened to shut off services in your home in past 12Mo No [facility] (I/We) worried whemelanie er (my/our) food would run out before (I/we) got money to buy more. Sometimes true [facility] Start: 06-09-2012 Sex Female (finding) Ami shukla Clinical Notes 06-24-2021 to 09-05-2024 Telephone Encounter - Raymond Kemp APRN.CNP - 09/05/2024 8:38 AM ESTTelephone Encounter - Raymond Kemp APRN.CNP - 09/05/2024 8:38 AM ESTPatient InstructionsPatient InstructionsAttachments Note Date & Type Note Facility 09-05-2024 Telephone encounter Note Letter written and printed to be faxed to below Raymond Kemp APRN.CNP September 05, 2024 8:39 AM [facility] 09-05-2024 Miscellaneous Notes Letter written and printed to be faxed to below Raymond Kemp APRN.CNP September 05, 2024 8:39 AM Bryan is calling Raymond Kemp APRN.CNP today with concern regarding Letter. She is asking for a letter that states she needs a handicap accessible apartment. Please fax to [phone] or [phone]. Please advise. Patient has been identified by name and birthdate. Person calling: self Call patient at: on cell [phone] (home) [phone] (cell) Was an appointment scheduled: No Closing statement: Results or non-symptom based questions: Thank you for calling [facility], your call will be returned within the next business day. Morena Van documented in this encounter [facility] 09-04-2024 Telephone encounter Note Bryan is calling Raymond Kemp APRN.CNP today with concern regarding Letter. She is asking for a letter that states she needs a handicap accessible apartment. Please fax to [phone] or [phone]. Please advise. Patient has been identified by name and birthdate. Person calling: self Call patient at: on cell [phone] (home) [phone] (cell) Was an appointment scheduled: No Closing statement: Results or non-symptom based questions: Thank you for calling [facility], your call will be returned within the next business day. Morena Van [facility] 08-28-2024 Note HNO ID: [id number] Author: MAGALI GREGORY RPh Service: ? Author Type: ? Type: Progress Notes Filed: 09/04/2024 07:18 Note Text: [facility] Refill Assessment Medication(s): Jessica Cruz had follow up R Pedro office visit 08/21/24 Therapy continues to be appropriate for disease, patient response, and medical condition. Verification of therapeutic benefit and effectiveness with current therapy. Adverse events, barriers in adherence, and side effects assessed and addressed. Will proceed with refill with no changes. Next OV not yet scheduled Magali Gregory RPh Patient's current medication list and adherence status to current therapy were reviewed by Specialty Pharmacy clinical pharmacist to identify any new drug interactions or non-compliance to therapy. Therapy continues to be appropriate for disease, patient response, and medical condition. Verification of therapeutic benefit and effectiveness with current therapy was completed. Adverse events, barriers in adherence, and side effects were assessed and addressed if applicable. Will proceed with refill with no changes in therapy - patient progressing towards achieving therapeutic goals based on medication-specific laboratory parameters, disease state markers and outcomes. Office/provider notes have been reviewed prior to dispensing the medication. Crm Functional Analyst Assessment Patient confirmed: Yes Med/dose confirmed: Yes Supplies needed: No supplies needed Missed doses: Yes Count of missed doses: 1 Reason for missed doses: by accident Estimated days supply on hand: (not sure/ not home) Next cycle/dose due: 09/02/24 Copay amount: 0 Payment confirmed: Yes Delivery method: FedEx Signature required: Waived on patient request Delivery address: [place] [address] Delivery date: 09/08/24 Questions or concerns for the pharmacist?: No Did you have any side effects believed to be related to this medication, that resulted in hospitalization?: No Current Outpatient Medications on File Prior to Visit Medication Sig pregabalin (LYRICA) 300 mg capsule Take 1 capsule by mouth two times a day for 30 days. lidocaine (LIDODERM) 5 % Apply 1 Patch as directed once daily. to affected area. Remove patch after 12 hours. DULoxetine (CYMBALTA) 60 mg capsule Take 1 capsule by mouth daily at bedtime. keTORolac (TORADOL) 10 mg tablet Take 1 tablet by mouth every 6 hours as needed. Do not use while taking NSAIDs including ibuprofen ergocalciferol 50,000 unit capsule (VITAMIN D2, DRISDOL) Take 1 capsule by mouth one time a week. ozanimod (ZEPOSIA) 0.92 mg capsule Take 1 capsule by mouth once daily. hydrocortisone 0.5 % cream APPLY TO AFFECTED AREA TWO TIMES A DAY FOR 7 DAYS. atorvastatin (LIPITOR) 20 mg tablet Take 1 tablet by mouth once daily. baclofen 20 mg tablet Take 1 tablet (20mg) by mouth in the morning and afternoon and 2 tablets (40 mg) by mouth in the evening famotidine (PEPCID) 20 mg tablet Take 20 mg by mouth two times a day. acetaminophen (TYLENOL EXTRA STRENGTH) 500 mg tablet Take 2 tablets by mouth three times a day as needed for pain. No current facility-administered medications on file prior to visit. [facility] [place] CLINICAL ASSESSMENT - NEUROLOGY V7: Assessment to use: Refill Assessment of injection issues or necrosis at injection sites: N/A Screening for infection: Yes Drug specific assessments, as appropriate: Yes Current medication list (including drug interaction assessment): Yes Experience of adverse reactions to the medication: Yes Date of influenza vaccination reminder: 05/01/2024 Date of most recent vaccination assessment: 05/01/2024 Treatment Plan Information: Zeposia (Ozanimod) Sphingosine 1 Phosphate (S1P) Receptor Modulator Take whole with or without food Multiple sclerosis, relapsing: Oral: Initial: 0.23 mg once daily on days 1 through 4; then 0.46 mg once daily on days 5 through 7; maintenance dose: 0.92 mg once daily starting on day 8. Est. Tx Plan Start Date: No information available Estimated Start Date Info: No information available Est. Estimated Treatment Duration: No information available Judy Templeton (Intern) [facility] 08-21-2024 Instructions Raymond Kemp APRN.CNP - 08/21/2024 2:40 PM EST PLAN: - Continue Zeposia - MRI brain 07/2025 - Labs: CBC diff, CMP 01/2025 - OCT - Recommendations as discussed at last visit: - reschedule with PCP - reschedule with optometry - reschedule with orthopedics (requires xray before hand) - referrals as previously discussed: ENGINEERING INSPECTION ASSISTANT, PT, OT - Consider pelvic floor therapy and/or OAB medications - Will mail updated letters to patient ([address] [place], [place] [address], room [address], in [place], [place]) - Follow up in January 2025 documented in this encounter [facility] 08-21-2024 History of Present illness Narrative Images from the original note were not included. [facility] VIRTUAL FOLLOWUP/ESTABLISHED PATIENT VISIT PRINCIPAL NEUROLOGIC DIAGNOSIS: Multiple Sclerosis DISEASE SUMMARY Date of onset: 03/2019 Date of diagnosis of MS: 03/2020 Disease course at onset: Relapsing-Remitting Current disease course: Relapsing-Remitting Previous disease therapies: - IVMP x 3 08/2023 (worsening LUE weakness and numbness) Current disease therapy: Zeposia (Jul 2020-Present) Most recent MRI brain: 08/01/24 Most recent MRI cervical spine: 08/28/23 ([facility]) Most recent MRI thoracic spine: 08/28/23 ([facility]) CSF: NA JCV serology result and date: 03/2020 negative Brief Disease History: - Mar 2019 bilateral leg weakness, urinary retention - Jul 2019 hyperacute onset L arm numbness and subtle weakness(dropping items) occurring when lifting a duffle bag - Jul 2019-February 2020 noticed balance difficulty CHIEF COMPLAINT: Follow-up on MS disease modifying therapy Usual treating team: Stephan/ Pedro The patient is unaccompanied. The patient was last seen 05/08/24, currently taking Zeposia. Since the patient's last visit the patient reports overall feeling worse. Issues with current therapy: Tolerating medication without side effects. Visit completed over the telephone due to patient connectivity issues. I have communicated my name and active licensure. The patient's identity and physical location were verified at the time of this visit. 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, sober for 5 months Living at [facility] as part of sober living through [facility] Alissa (partner) is going through sobriety as well Having issues with her R hand middle finger Worse than last visit Can lock daily where she cannot even open it Sharp shooting pain through that middle finger D Did not end up seeing orthopedics since last visit or doing xray 07/07/24 [facility] - worsening MS symptoms x 1 week with body pain (in particular to diaphragm causing shortness of breath) and increased falls Was told her heart was overworking and was attributed to stress Reports going to local ER more recently as well due to a fall Worsened her low back pain and R hip pain Follows with [facility] OB re: fibroids and requesting hysterectomy No missed doses of Zeposia Learning how to swim, [facility] REVIEW OF SYSTEMS: Mood: PHQ9 responses reviewed and appear below Spasticity: improved with baclofen Bladder: leaking more frequently, requires pads Bowel: no concerns Sleep: can go days without sleeping, or sleeps just for a few minutes and wakes up full of energy. Seeing sleep medicine next week Neuro-QoL Functions (higher=better functioning) Flowsheet [facility] from 08/21/[address] [facility] Office Visit from 07/19/[address] [facility] Office Visit from 04/18/[address] [facility] Upper Extremity Domain T Score 39 44.53 42.12 Lower Extremity Domain T Score 39 40.35 34.04 Cognitive Function Domain T Score 40 48.64 46.37 Positive Affect Well Being T Score -- -- -- Ability To Participate In Social Roles T Score 42 44.12 33.38 Satisfaction With Social Roles T Score 44 41.34 36.98 Neuro-QoL Symptoms (higher=worse symptoms) Flowsheet [facility] from 08/21/[address] [facility] Office Visit from 07/19/[address] [facility] Office Visit from 04/18/[address] [facility] Sleep Domain T Score -- 57.7 61.86 Fatigue Domain T Score 52 56.21 58.38 Anxiety Domain T Score 56 48.72 48.87 Depression Domain T Score 57 46.25 47.97 Stigma Domain T Score -- 36.56 51.87 Emotional Behavior Dyscontrol T Score -- -- -- has a past medical history of Cocaine use, Depression, Fibroid, Multiple sclerosis ([facility]), Smoking, and Stroke (cerebrum) ([facility]). has a current medication list which includes the following prescription(s): ergocalciferol (vitamin d2), zeposia, pregabalin, lidocaine, duloxetine, ketorolac, ergocalciferol (vitamin d2), hydrocortisone, atorvastatin, baclofen, famotidine, and acetaminophen. EXAM: LMP 04/28/2020 (Within Years) MSPT Results Flowsheet [facility] Office Visit from 07/19/[address] [facility] Office Visit from 04/18/[address] [facility] Office Visit from 10/27/[address] [facility] Processing Speed Total Number Correct 45 46 40 Processing Speed Z score 0.42 0.51 -0.19 Dominant hand -- -- -- MDT Left Hand Time 24.54 27.5 -- MDT Right Hand Time 28.79 23.69 -- Walking Speed Test (25 feet) -- 8.56 -- Memory Z Score -- -- -- Mental status evaluation during the interview and examination showed normal level of consciousness, orientation, language, memory, praxis, and higher intellectual function Affect: Normal RESULTS: CBC + Diff Component Value Date WBC 10.64 05/08/2024 HB 13.5 05/08/2024 HCT 45.2 05/08/2024 PLT 352 05/08/2024 ABSLYMPH 1.10 05/08/2024 Vitamin D Component Value Date VITD25 28.3 (L) 05/08/2024 CMP Component Value Date AST 13 05/08/2024 GLUC 106 (H) 05/08/2024 BUN 11 05/08/2024 CREAT 0.56 (L) 05/08/2024 NA 145 (H) 05/08/2024 K 4.1 05/08/2024 CHLOR 108 (H) 05/08/2024 ALT 18 05/08/2024 MRI Results: Discrete MRI Results Component Value Date Brain New T2 Lesions None 08/01/2024 Brain Enhancing Lesions None 08/01/2024 ASSESSMENT: Bryan Cruz is a 53 year old female with Multiple Sclerosis. She is on Zeposia for DMT which she tolerates well. Denies new neurological symptoms, radiographically stable 07/2024. She presents today for follow up. Comprehensive exam limited due to nature of virtual platform. Will proceed with the plan as below, she is to follow up in January 2025 or sooner if clinically indicated. Exam is:Stable, continue with current IMDT. The prescribed disease modifying therapy for MS is having the expected benefit in this patient based on imaging and clinical criteria, and will be continued or refilled, with planned follow-up at approximately 6-month intervals to continue to assess response on an ongoing basis. PLAN: - Continue Zeposia - MRI brain 07/2025 - Labs: CBC diff, CMP 01/2025 - OCT - Recommendations as discussed at last visit: - reschedule with PCP - reschedule with optometry - reschedule with orthopedics (requires xray before hand) - referrals as previously discussed: ENGINEERING INSPECTION ASSISTANT, PT, OT - Consider pelvic floor therapy and/or OAB medications - Will mail updated letters to patient ([address], [address], in [place], [place]) - Follow up in January 2025 [facility] website checked and validated. All prescriptions have been APPROPRIATELY filled. No suspicious activity was identified. 08/21/2024 by Raymond Kemp APRN.CNP [facility] on 08/21/24 COMPLETE BLOOD COUNT AND DIFFERENTIAL COMPREHENSIVE METABOLIC PANEL OCT NEURO INST Patient Health Education Discussed at Visit: Emotional Health/Wellness, Risks and Common side effects of MS medications, Stretching, and Vitamin D supplementation I spent a total of 41 minutes on the date of the service which included preparing to see the patient, completing clinical documentation, obtaining and/or reviewing separately obtained history, performing a medically appropriate examination, counseling and educating the patient/family/caregiver, ordering medications, tests, or procedures, and communicating results to the patient/family/caregiver. Raymond Kemp APRN.CNP [facility] for Multiple Sclerosis documented in this encounter [facility] 08-21-2024 Note HNO ID: [id number] Author: RAYMOND KEMP APRN.CNP Service: ? Author Type: Nurse Practitioner Type: Progress Notes Filed: 08/21/2024 14:42 Note Text: [facility] VIRTUAL FOLLOWUP/ESTABLISHED PATIENT VISIT PRINCIPAL NEUROLOGIC DIAGNOSIS: Multiple Sclerosis DISEASE SUMMARY Date of onset: 03/2019 Date of diagnosis of MS: 03/2020 Disease course at onset: Relapsing-Remitting Current disease course: Relapsing-Remitting Previous disease therapies: - IVMP x 3 08/2023 (worsening LUE weakness and numbness) Current disease therapy: Zeposia (Jul 2020-Present) Most recent MRI brain: 08/01/24 Most recent MRI cervical spine: 08/28/23 ([facility]) Most recent MRI thoracic spine: 08/28/23 ([facility]) CSF: NA JCV serology result and date: 03/2020 negative Brief Disease History: - Mar 2019 bilateral leg weakness, urinary retention - Jul 2019 hyperacute onset L arm numbness and subtle weakness(dropping items) occurring when lifting a duffle bag - Jul 2019-February 2020 noticed balance difficulty CHIEF COMPLAINT: Follow-up on MS disease modifying therapy Usual treating team: Stephan/ Pedro The patient is unaccompanied. The patient was last seen 05/08/24, currently taking Zeposia. Since the patient's last visit the patient reports overall feeling worse. Issues with current therapy: Tolerating medication without side effects. Visit completed over the telephone due to patient connectivity issues. I have communicated my name and active licensure. The patient's identity and physical location were verified at the time of this visit. 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, sober for 5 months Living at [facility] as part of sober living through [facility] Alissa (partner) is going through sobriety as well Having issues with her R hand middle finger Worse than last visit Can lock daily where she cannot even open it Sharp shooting pain through that middle finger LHD Did not end up seeing orthopedics since last visit or doing xray 07/07/24 [facility] ER - worsening MS symptoms x 1 week with body pain (in particular to diaphragm causing shortness of breath) and increased falls Was told her heart was overworking and was attributed to stress Reports going to local ER more recently as well due to a fall Worsened her low back pain and R hip pain Follows with [facility] OB re: fibroids and requesting hysterectomy No missed doses of Zeposia Learning how to swim, [facility] REVIEW OF SYSTEMS: Mood: PHQ9 responses reviewed and appear below Spasticity: improved with baclofen Bladder: leaking more frequently, requires pads Bowel: no concerns Sleep: can go days without sleeping, or sleeps just for a few minutes and wakes up full of energy. Seeing sleep medicine next week Neuro-QoL Functions (higher=better functioning) Flowsheet [facility] from 08/21/[address] [facility] Office Visit from 07/19/[address] [facility] Office Visit from 04/18/[address] [facility] Upper Extremity Domain T Score 39 44.53 42.12 Lower Extremity Domain T Score 39 40.35 34.04 Cognitive Function Domain T Score 40 48.64 46.37 Positive Affect Well Being T Score -- -- -- Ability To Participate In Social Roles T Score 42 44.12 33.38 Satisfaction With Social Roles T Score 44 41.34 36.98 Neuro-QoL Symptoms (higher=worse symptoms) Flowsheet [facility] from 08/21/[address] [facility] Office Visit from 07/19/[address] [facility] Office Visit from 04/18/[address] [facility] Sleep Domain T Score -- 57.7 61.86 Fatigue Domain T Score 52 56.21 58.38 Anxiety Domain T Score 56 48.72 48.87 Depression Domain T Score 57 46.25 47.97 Stigma Domain T Score -- 36.56 51.87 Emotional Behavior Dyscontrol T Score -- -- -- has a past medical history of Cocaine use, Depression, Fibroid, Multiple sclerosis ([facility]), Smoking, and Stroke (cerebrum) ([facility]). has a current medication list which includes the following prescription(s): ergocalciferol (vitamin d2), zeposia, pregabalin, lidocaine, duloxetine, ketorolac, ergocalciferol (vitamin d2), hydrocortisone, atorvastatin, baclofen, famotidine, and acetaminophen. EXAM: [facility] 04/28/2020 (Within Years) MSPT Results Flowsheet [facility] Office Visit from 07/19/[address] [facility] Office Visit from 04/18/[address] [facility] Office Visit from 10/27/[address] [facility] Processing Speed Total Number Correct 45 46 40 Processing Speed Z score 0.42 0.51 -0.19 Dominant hand -- -- -- MDT Left Hand Time 24.54 27.5 -- MDT Right Hand Time 28.79 23.69 -- Walking Speed Test (25 feet) -- 8.56 -- Memory Z Score -- -- -- Mental status evaluation during the interview and examination showed normal level of consciousness, orientation, language, memory, praxis, and higher intellec (more content not included)... [facility] 08-04-2024 History of Present illness Narrative [facility] Refill Assessment Medication(s): Zeposia Patient's current medication list and adherence status to current therapy were reviewed by Specialty Pharmacy clinical pharmacist to identify any new drug interactions or non-compliance to therapy. Therapy continues to be appropriate for disease, patient response, and medical condition. Verification of therapeutic benefit and effectiveness with current therapy was completed. Adverse events, barriers in adherence, and side effects were assessed and addressed if applicable. Will proceed with refill with no changes in therapy - patient progressing towards achieving therapeutic goals based on medication-specific laboratory parameters, disease state markers and outcomes. Office/provider notes have been reviewed prior to dispensing the medication. Crm Functional Analyst Assessment Patient confirmed: Yes Med/dose confirmed: Yes Supplies needed: No supplies needed Missed doses: No Estimated days supply on hand: (7-8) Next cycle/dose due: 08/04/24 Copay amount: 0 Payment confirmed: Yes Delivery method: FedEx Signature required: Waived on patient request Delivery address: [place] [address] Delivery date: 08/07/24 Questions or concerns for the pharmacist?: No Did you have any side effects believed to be related to this medication, that resulted in hospitalization?: No Current Outpatient Medications on File Prior to Visit Medication Sig ozanimod (ZEPOSIA) 0.92 mg capsule Take 1 capsule by mouth once daily. pregabalin (LYRICA) 300 mg capsule Take 1 capsule by mouth two times a day for 30 days. keTORolac (TORADOL) 10 mg tablet Take 1 tablet by mouth every 6 hours as needed. Do not use while taking NSAIDs including ibuprofen [DISCONTINUED] ergocalciferol 50,000 unit capsule (VITAMIN D2, DRISDOL) Take 1 capsule by mouth one time a week for 12 doses. (Patient not taking: Reported on 06/05/2024) DULoxetine (CYMBALTA) 30 mg capsule Take 1 capsule by mouth daily at bedtime for 7 days, THEN 2 capsules daily at bedtime. lidocaine (LIDODERM) 5 % Apply 1 Patch as directed once daily. to affected area. Remove patch after 12 hours. hydrocortisone 0.5 % cream APPLY TO AFFECTED AREA TWO TIMES A DAY FOR 7 DAYS. atorvastatin (LIPITOR) 20 mg tablet Take 1 tablet by mouth once daily. baclofen 20 mg tablet Take 1 tablet (20mg) by mouth in the morning and afternoon and 2 tablets (40 mg) by mouth in the evening famotidine (PEPCID) 20 mg tablet Take 20 mg by mouth two times a day. acetaminophen (TYLENOL EXTRA STRENGTH) 500 mg tablet Take 2 tablets by mouth three times a day as needed for pain. lidocaine HCL 4 % ptmd Apply 1 Patch to affected area once daily. No current facility-administered medications on file prior to visit. [facility] [place] CLINICAL ASSESSMENT - NEUROLOGY V7: Assessment to use: Refill Assessment of injection issues or necrosis at injection sites: N/A Screening for infection: Yes Drug specific assessments, as appropriate: Yes Current medication list (including drug interaction assessment): Yes Experience of adverse reactions to the medication: Yes Date of influenza vaccination reminder: 05/01/2024 Date of most recent vaccination assessment: 05/01/2024 Treatment Plan Information: Zeposia (Ozanimod) Sphingosine 1 Phosphate (S1P) Receptor Modulator Take whole with or without food Multiple sclerosis, relapsing: Oral: Initial: 0.23 mg once daily on days 1 through 4; then 0.46 mg once daily on days 5 through 7; maintenance dose: 0.92 mg once daily starting on day 8. Est. Tx Plan Start Date: No information available Estimated Start Date Info: No information available Est. Estimated Treatment Duration: No information available Judy Templeton (Intern) Magali Gregory RPh documented in this encounter [facility] 08-04-2024 Note HNO ID: [id number] Author: MAGALI GREGORY RPh Service: ? Author Type: ? Type: Progress Notes Filed: 08/04/2024 13:25 Note Text: [facility] Specialty Refill Assessment Medication(s): Zeposia Patient's current medication list and adherence status to current therapy were reviewed by Specialty Pharmacy clinical pharmacist to identify any new drug interactions or non-compliance to therapy. Therapy continues to be appropriate for disease, patient response, and medical condition. Verification of therapeutic benefit and effectiveness with current therapy was completed. Adverse events, barriers in adherence, and side effects were assessed and addressed if applicable. Will proceed with refill with no changes in therapy - patient progressing towards achieving therapeutic goals based on medication-specific laboratory parameters, disease state markers and outcomes. Office/provider notes have been reviewed prior to dispensing the medication. Crm Functional Analyst Assessment Patient confirmed: Yes Med/dose confirmed: Yes Supplies needed: No supplies needed Missed doses: No Estimated days supply on hand: (7-8) Next cycle/dose due: 08/04/24 Copay amount: 0 Payment confirmed: Yes Delivery method: FedEx Signature required: Waived on patient request Delivery address: [place] [address] Delivery date: 08/07/24 Questions or concerns for the pharmacist?: No Did you have any side effects believed to be related to this medication, that resulted in hospitalization?: No Current Outpatient Medications on File Prior to Visit Medication Sig ozanimod (ZEPOSIA) 0.92 mg capsule Take 1 capsule by mouth once daily. pregabalin (LYRICA) 300 mg capsule Take 1 capsule by mouth two times a day for 30 days. keTORolac (TORADOL) 10 mg tablet Take 1 tablet by mouth every 6 hours as needed. Do not use while taking NSAIDs including ibuprofen [DISCONTINUED] ergocalciferol 50,000 unit capsule (VITAMIN D2, DRISDOL) Take 1 capsule by mouth one time a week for 12 doses. (Patient not taking: Reported on 06/05/2024) DULoxetine (CYMBALTA) 30 mg capsule Take 1 capsule by mouth daily at bedtime for 7 days, THEN 2 capsules daily at bedtime. lidocaine (LIDODERM) 5 % Apply 1 Patch as directed once daily. to affected area. Remove patch after 12 hours. hydrocortisone 0.5 % cream APPLY TO AFFECTED AREA TWO TIMES A DAY FOR 7 DAYS. atorvastatin (LIPITOR) 20 mg tablet Take 1 tablet by mouth once daily. baclofen 20 mg tablet Take 1 tablet (20mg) by mouth in the morning and afternoon and 2 tablets (40 mg) by mouth in the evening famotidine (PEPCID) 20 mg tablet Take 20 mg by mouth two times a day. acetaminophen (TYLENOL EXTRA STRENGTH) 500 mg tablet Take 2 tablets by mouth three times a day as needed for pain. lidocaine HCL 4 % ptmd Apply 1 Patch to affected area once daily. No current facility-administered medications on file prior to visit. [facility] [place] CLINICAL ASSESSMENT - NEUROLOGY V7: Assessment to use: Refill Assessment of injection issues or necrosis at injection sites: N/A Screening for infection: Yes Drug specific assessments, as appropriate: Yes Current medication list (including drug interaction assessment): Yes Experience of adverse reactions to the medication: Yes Date of influenza vaccination reminder: 05/01/2024 Date of most recent vaccination assessment: 05/01/2024 Treatment Plan Information: Zeposia (Ozanimod) Sphingosine 1 Phosphate (S1P) Receptor Modulator Take whole with or without food Multiple sclerosis, relapsing: Oral: Initial: 0.23 mg once daily on days 1 through 4; then 0.46 mg once daily on days 5 through 7; maintenance dose: 0.92 mg once daily starting on day 8. Est. Tx Plan Start Date: No information available Estimated Start Date Info: No information available Est. Estimated Treatment Duration: No information available Judy Templeton (Intern) Magali Gregory, [facility] 08-01-2024 Note HNO ID: [id number] Author: MICHI GOMEZ RT(R) Service: ? Author Type: Technologist Type: Progress Notes Filed: 08/01/2024 10:19 Note Text: Radiology Service Progress Note DATE OF SERVICE: August 01, 2024 TIME: 10:18 AM PATIENT IDENTITY VERIFICATION COMPLETED USING TWO (2) STANDARD IDENTIFIERS: Name and Date of confirmed by patient verbally. FALL SCREENING: Has the patient had 2 falls in the last year or 1 fall with injury or currently using an Ambulatory Assistive Device (Walker, Cane, Wheelchair, Crutches, etc.)? No PATIENT GENDER DATA: Female. status: : No status: NO. PATIENT RELEVANT IMPLANT DATA REVIEWED: Yes PATIENT PRESENTS WITH AN IMPLANTABLE OR ATTACHED SPOT REMOVER: No ALLERGIES: Reviewed and unchanged CONTRAST ALLERGY: NO. EXAM: MRI - CONTRAST TYPE: GROUP II PERIPHERAL IV DATA: Ambulatory: A peripheral IV was started in the Left antecubital site with a Angio cath: 24 gauge. RADIOLOGY DEPARTMENT: MR; Exam(s) Completed: Head: Multiple Sclerosis SIGNATURE: RT Krystal(R) PATIENT NAME: Bryan Cruz DATE: August 01, 2024 TIME: 10:[address] [facility] 08-01-2024 History of Present illness Narrative Radiology Service Progress Note DATE OF SERVICE: August 01, 2024 TIME: 10:18 AM PATIENT IDENTITY VERIFICATION COMPLETED USING TWO (2) STANDARD IDENTIFIERS: Name and Date of confirmed by patient verbally. FALL SCREENING: Has the patient had 2 falls in the last year or 1 fall with injury or currently using an Ambulatory Assistive Device (Walker, Cane, Wheelchair, Crutches, etc.)? No PATIENT GENDER DATA: Female. status: : No status: NO. PATIENT RELEVANT IMPLANT DATA REVIEWED: Yes PATIENT PRESENTS WITH AN IMPLANTABLE OR ATTACHED SPOT REMOVER: No ALLERGIES: Reviewed and unchanged CONTRAST ALLERGY: NO. EXAM: MRI - CONTRAST TYPE: GROUP II PERIPHERAL IV DATA: Ambulatory: A peripheral IV was started in the Left antecubital site with a Angio cath: 24 gauge. RADIOLOGY DEPARTMENT: MR; Exam(s) Completed: Head: Multiple Sclerosis SIGNATURE: RT Krystal(R) PATIENT NAME: Bryan Cruz DATE: August 01, 2024 TIME: 10:18 AM documented in this encounter [facility] 07-15-2024 Telephone encounter Note LVM to call office to schedule. Will need a [address] Gomez. [facility] 07-15-2024 Telephone encounter Note Images from the original note were not included. Naheed Gomez, Eboni Wiggins; P Migs/Cpp Scheduling Pool; Freda Hernandez APRN.COMPENSATION CONSULTING MANAGER Can we pls schedule an office hysteroscopy, polypectomy w me using rigid scope and Resectr. @Freda- can you pls FYI the pt and make sure she agrees. Thx C [facility] 07-15-2024 Miscellaneous Notes LVM to call office to schedule. Will need a [address] Gomez. Images from the original note were not included. Naheed Gomez DO Baragry, Ashley; P Migs/Cpp Scheduling Pool; Freda Hernandez APRN.COMPENSATION CONSULTING MANAGER Can we pls schedule an office hysteroscopy, polypectomy w me using rigid scope and Resectr. @Freda- can you pls FYI the pt and make sure she agrees. Thx C documented in this encounter [facility] 07-10-2024 Note DISCHARGE SUMMARY [address] [address] Bryan Cruz Date of : 1970 53 year old female Attending Yousif Gillette MD Date of Admission 07/07/2024 Date of Discharge 07/10/2024 Final Diagnosis: Multiple sclerosis exacerbation (HCC) Hospital Problems as of 07/10/2024 * (Principal) Multiple sclerosis exacerbation (HCC) Current every day smoker History of cocaine abuse (HCC) Hyperlipidemia Morbid obesity with BMI of 40.0-44.9, adult Vitamin D deficiency Shortness of breath Hyperlipidemia, unspecified hyperlipidemia type Major depressive disorder in partial remission, unspecified whether recurrent (HCC) RESOLVED: Cardiac insufficiency (HCC) RESOLVED: Dyspnea, unspecified type No discharge procedures on file. No future appointments. Condition at Discharge improved Symptoms to look out for after discharge: New or Severe Pain Activity no restrictions Diet no restrictions Disposition home Functional Status ambulatory For addt'l facility discharge info click 'Facility Discharge' tab. Reason for Hospitalization Chief Complaint Patient presents with Shortness of breath Patient states that she began to notice her MS flaring up for the past week, since then has been having worsening body wide pain especially in diaphragm that is causing shortness of breath. Also admits to multiple falls this week Significant Findings CTA Chest Pulmonary Embolism - 1. No PE identified. PE cannot be evaluated beyond the segmental level due to the limitations above. 2. Borderline cardiomegaly, with contrast reflux into the IVC suggestive of cardiac insufficiency. CT Head Without Contrast No acute intracranial abnormality. X-ray Chest PA+Lat No acute cardiopulmonary abnormality identified. MR C-SPINE W/+W/O (06/04/24 from OSH) Stable cord signal abnormality at C2-C3 No new suspicious cord signal abnormalities No suspicious enhancements Hospital Course 53 year old female with PMHx of MS relapsing/remitting, on zeposia, chronic headaches, crack/cocaine use (90 days sober), depression, fibroids, stroke, presenting from sober living facility to ED via EMS for evaluation of syncopal episode and SOB at rest that has been ongoing for appx 1.5 weeks. Ongoing dyspnea with cardiac insufficiency. Pt feels her symptoms are similar to prior MS flare. Prior cord signal noted demyelination at C2-3 that was unchanged in 06/04/24 In ED no acute overnight heart failure findings on examination. CTA did not reveal a PE but did show cardiac insufficiency. Cardiac enzymes normal VSS, COVID-flu negative Patient was seen by neurology who recommended starting IV solumedrol 1g daily every 18 hours. Pt responded rapidly to stress dose steroids therefore MRI was deferred at this time. Medication List CONTINUE taking these medications acetaminophen 500 MG tablet Commonly known as: TYLENOL atorvastatin 20 mg tablet Commonly known as: LIPITOR baclofen 20 MG tablet Commonly known as: LIORESAL Biotene Dry Mouth Liqd DULoxetine 30 MG capsule Commonly known as: CYMBALTA famotidine 20 MG tablet Commonly known as: PEPCID fluocinonide 0.05 % ointment Commonly known as: LIDEX Apply to affected area of palm BID ketorolac 10 MG tablet Commonly known as: TORADOL lidocaine 5 % patch Commonly known as: LIDODERM pregabalin 300 MG capsule Commonly known as: LYRICA Salex 6 % Crea Generic drug: Salicylic Acid apply to affected areas bid vitamin D2 ergocalciferol 1.25 MG (57336 UT) capsule Commonly known as: DRISDOL Zeposia 0.92 MG Caps Generic drug: Ozanimod HCl STOP taking these medications sertraline 100 MG tablet Commonly known as: ZOLOFT Agree with D/C summary above More than 30 minutes spent by medicine team in preparing this patient's discharge, including reviewing orders and instructions, examination of the patient and in counseling the patient and/or family on the nature of the illness requiring hospital care. Yousif Gillette MD I have personally reviewed the application security consultant notes, nursing notes, therapy and allied healthcare provider notes, labarotary tests and imaging/radiological tests. I have obtained pertinent history from the patient and/or surrogate including via chart review. I have independantly interpreted the tests performed and discussed management with other consultants/providers involved in the treatment of this patient. Total time spent is more than 50 minutes with over 50% spent in care-coordination. I provided the patient and/or family/surrogate with the following information: Explanation of the primary diagnosis, and secondary diagnoses where applicable, including test results, Discussion of any new medications and treatments, including expected benefits and potential major side effects, Explanation of previous treatments or medications that are di (more content not included)... [facility] 07-10-2024 History of Present illness Narrative Dr. Whatley notified of critical WBC value of 23.[address] Whatley read back critical results. No new orders at this time. Images from the original note were not included. NEUROLOGY CONSULT FOLLOWUP NOTE Hospital Course: Bryan Cruz is a 53 year old female with PMHx of MS relapsing/remitting, on zeposia, chronic headaches, crack/cocaine use (90 days sober), depression, fibroids, stroke, who initially presented from sober living facility to ED via EMS for evaluation of syncopal episode and SOB at rest that has been ongoing for appx 1.5 weeks. At that time, pt stated that she felt her symptoms were similar to prior MS flare. She noted that she missed one dose of zeposia the day before ED presentation. Prior cord signal noted demyelination at C2-C3 that was unchanged in 06/04/24. In the ED, there were no no acute overnight heart failure findings on exam. CTA did not reveal a PE, but did show cardiac insufficiency. Cardiac enzymes were normal. Pt was admitted to Medicine Team 6 floor. Neurology was consulted for evaluation of MS flare, dyspnea, fatigue, and blurry vision. On initial consult interview, pt reported that symptoms began a few days ago beginning with loss of balance progressing to weakness of both legs (R leg weaker than L). Around that time she also had blurry vision with throbbing eye pain bilaterally and a constant occipital headache. She has been taking tylenol for the pain which has helped. Pt reported that she has had loss of sensation over her fingers on both hands, but not in her toes. She noticed recent hoarseness of her voice. Stated her shortness of breath is still present but improved compared to when she presented to the ED. She cannot lie flat. She described what seemed to be an apneic event. Also reported falling twice due to lightheadedness. She has been fatigued throughout stay in hospital. Denied any urinary urgency or loss of continence with this current flare. Noted that in past, she had urinary retention with what she believes are MS flares. Pt reported that her past flares usually taper off and improve, but current flare worsened. She was hospitalized for a MS flare before. Last episode was around 4-5 months ago. Pt denied any common cold symptoms such as fever or cough. She has been followed by a neurologist and states she has been given steroids in the past for MS flares. Of note, patient has had recent stressors related to her housing situation. Updates since last visit: Today, pt reports feeling much better compared to yesterday. She reports significant improvement in her shortness of breath. States that her breathing exercises yesterday have helped. Notes that she was able to walk around the floor yesterday evening with no balance issues. Pt is still experiencing eye pain and headache, but this is also less severe compared to yesterday. She reports her voice sounding less hoarse. States she is still having decreased sensation over the right side of her face and right upper extremity. She reports not sleeping at all last night and felt full of energy. Noted history of insomnia in the past. Pt believes she feels improvement in her symptoms after high dose steroid treatment yesterday. Denies noticing any side effects. Pt expressed interest in being discharged today due to problems with her housing situation. She was agreeable when informed that steroid treatment would be completed tomorrow. Summary of Imaging & Other Pertinent Studies: CTA Chest Pulmonary Embolism - 1. No PE identified. PE cannot be evaluated beyond the segmental level due to the limitations above. 2. Borderline cardiomegaly, with contrast reflux into the IVC suggestive of cardiac insufficiency. CT Head Without Contrast No acute intracranial abnormality. X-ray Chest PA+Lat No acute cardiopulmonary abnormality identified. MR C-SPINE W/+W/O (06/04/24 from OSH) Stable cord signal abnormality at C2-C3 No new suspicious cord signal abnormalities No suspicious enhancements OBJECTIVE: Vitals: 07/09/24 0633 BP: 137/68 Pulse: 70 Resp: 20 Temp: 98.6 F (37 C) SpO2: 97% No intake or output data in the 24 hours ending 07/09/24 0718 Physical Exam: Gen: Well appearing, CVS: RRR, Normal S1, S2 Psych: Pressured speech, but easily redirectable. Tangential at times. Improved in the afternoon. Neurologic exam: Cognition: Level of consciousness: awake, alert Affect: normal Orientation: oriented Attention: normal Language: intact fluency, Cranial Nerves CN II: Vision: visual leger intact to finger count Pupils: equal, round; reactive to light bilaterally CN III, IV, : Extraocular movements: Intact, bilaterally CN V: Facial sensation: Asymmetric, diminished facial sensation on right forehead, cheeks, chin compared to left side of face CN VII: Facial motor function: intact and symmetric CN VIII: Hearing: intact to conversation, finger rub CN IX, X: Palate elevation: symmetric. Dysarthria: mildly hoarse voice, improved since yesterday CN XII: Tongue: midline; able to move fully to R and L Motor Tone: Normal Spontaneous abnormal movements:none RUE 5/5 RLE 5/5 LUE 5/5 LLE 5/5 Sensation Diminished sensation to light touch over the RUE Sensation over LUE, LLE, and RLE are intact LABS: CBC (last 3 years, up to 8 values) 07/08/2024 07/07/2024 4:53 AM 11:47 AM WBC 11.1 8.4 RBC 4.45 4.87 Hgb 13.5 14.7 Hct 41.1 45.3 MCV 92 93 RDW 13.4 13.3 Plt 333 323 BMP (last 3 years, up to 8 values) 07/08/2024 07/07/2024 07/07/2024 4:53 AM 1:22 PM 11:47 AM Na 141 -- 139 K 4.1 3.8 7.8 Cl 104 -- 104 CO2 28 -- 30 Gap 13 -- 13 Glu 108 -- 89 BUN 17 -- 12 Cr 0.58 -- 0.66 Ca 8.8 -- 8.8 eGFR 107 -- 104 No results found for: INR Lipids (last 3 years, up to 8 values) No lab values to display. Lab Results Component Value Date HBA1C 6.3 (H) 08/30/2023 IMAGING: Echocardiogram date: 07/08/2024 Left Ventricular Ejection Fraction: 70 % on 07/08/2024. ASSESSMENT Bryan Cruz is a 53 year old female with PMHx of Multiple Sclerosis relapsing/remitting, on zeposia, chronic headaches, crack/cocaine use (90 days sober), depression, fibroids, stroke, who presented to ED for evaluation of syncopal episode and SOB at rest. Pt was admitted to Medicine Team 6 floor. Neurology was consulted for evaluation of MS flare and treatment recommendations. On interview and exam today, pt appears to have improved balance, hoarseness of voice, and energy level. She denies noticing any side effects with her steroid treatment. Pt expressed interest in being discharged today due to problems with her housing situation, but she was agreeable with following treatment plan when informed that steroid treatment be complete tomorrow morning. Decided to treat as MS flare due to new onset hoarseness. Regarding her SOB and syncope, her symptoms have improved today with current medication regimen. Recommendations - Continue 1000 mg Methylprednisolone q18hrs for 3 days. Last dose tomorrow morning. - no need for MRI at this time - agree with current syncope work up, add heart monitor on discharge. - orthostatic blood pressures - prescribe aquatic physical therapy at discharge - FU at [facility] for MS Teaching Physician/CATALYST IMPREGNATOR/PA Note: I saw and evaluated the patient. I personally performed (or reperformed) the physical exam and medical decision?making components of the visit. I reviewed the student documentation, copying appropriate sections into my note, and verified the findings in the note as written, or edited the note, as appropriate. Total length of time 35 (minutes) of the encounter, exclusive of procedures. Time-based billing justifications: Reviewing (chart, labs, and other clinical notes) Obtaining history (or reviewing separately obtained history) Patient visit (including performing a medically appropriate exam) Counseling/educating the patient/family/caregiver Ordering (medications, tests, procedures - including independent interpretation of results when not reported separately) Referring/communicating with other health weekend caregiver - when not reported separately Charting in Epic Alva Ziegler MD Neurology/Neurocritical Care Neurology service pager (for floor and ED consults): [phone] [facility] Medicine Progress Note Bryan Cruz Age [age] year old female [id number] Admitted 07/07/2024 11:09 AM Hospital Day: 3 Subjective HOSPITAL COURSE: 53 year old female with PMHx of MS relapsing/remitting, on zeposia, chronic headaches, crack/cocaine use (90 days sober), depression, fibroids, stroke, presenting from sober living facility to ED via EMS for evaluation of syncopal episode and SOB at rest that has been ongoing for appx 1.5 weeks. Ongoing dyspnea with cardiac insufficiency. Pt feels her symptoms are similar to prior MS flare. Prior cord signal noted demyelination at C2-3 that was unchanged in 06/04/24 In ED no acute overnight heart failure findings on examination. CTA did not reveal a PE but did show cardiac insufficiency. Cardiac enzymes normal VSS, COVID-flu negative INTERVAL HPI: Pt started on IV solumedrol on 07/08/2024 after evaluation by neurology. Awaiting MR head for further evaluation of MS flare. Will await read for further input from neurology and ophthalmology. Pt reports increased agitation and frustration with having to be in hospital, not getting fresh air. Desire to smoke. Pt is otherwise redirectable Objective PHYSICAL EXAM: BP 137/68 (BP Location: right arm) Pulse 70 Temp 98.6 F (37 C) (Oral) Resp 20 Ht 4' 11 (1.499 m) Wt 220 lb 12.8 oz (100.2 kg) SpO2 97% BMI 44.60 kg/m Gen pleasant and cooperative HENT NCAT EOMI CV RRR nl s1s2 Lungs diminished Abd soft NTND Ext no edema Neuro DELVALLE spontaneously. Strength symmetrically intact. DATA select: Labwork is notable for normal BMP and renal function TSH ok Vitamin D 20 Alk elvira 106 Mg 1.7 Order for tomorrow: Labwork BMP mg Assessment & Plan Multiple sclerosis exacerbation (HCC) Continue zeposia Continue IV solumedrol 1g every 18 hours x 3 doses. F/u MR head and MR orbit F/u neuro recs, ophthalmology asking to see after imaging. Will coordinate plan with ophtho based on recommendations. Continue toradol 10mg as home med for pain control. Continue tylenol 500mg q6h and lyrica 300mg BID Restart lidocaine patch after MRI. Morbid obesity with BMI of 40.0-44.9, adult Encourage lifestyle changes, pt stopped cocaine use in remission. Encourage tobacco cessation History of cocaine abuse (HCC) In remission Current every day smoker Encourage cessation, offer nicotine replacement Vitamin D deficiency Mild low levels, continue vitamin D replacement supplementation Hyperlipidemia Continue lipitor 20mg Shortness of breath Echocardiogram normal and reassuring Cardiac insufficiency (HCC) (Resolved: 07/09/2024) Hyperlipidemia, unspecified hyperlipidemia type Cont lipitor 20mg daily Dyspnea, unspecified type (Resolved: 07/09/2024) F/u echocardiogram Major depressive disorder in partial remission, unspecified whether recurrent (HCC) Cont cymbalta. DVT PPX: lovenox CODE: Full Code DISPO: return to long-term pending neuro eval. Yousif Gillette MD CASE MANAGEMENT Patient is awaiting MRI procedure prior to discharge. CM finds no identifiable homegoing needs at this time. CM remains available should needs arise. Samira Dubon RN BSN Inpatient Software Developer Mid LevelSub Master [phone] Available Sunday-Sunday 8AM-6PM 07/08/24 1459 Assessment and Discharge Planning Evaluation READMISSION LESS THAN 30 DAYS No READMISSION RISK SCORE IS Low Risk INTERVIEWED Patient COGNITIVE STATUS Oriented FUNCTIONAL STATUS PRIOR TO ADMISSION Ambulatory HAS ADVANCE DIRECTIVE ON FILE No LIVING SITUATION Home with Family CONNECTED TO MENTAL HEALTH SERVICES Unknown CONNECTED TO COMMUNITY SERVICES Unknown CONNECTED TO SUBSTANCE ABUSE SERVICES Unknown ADMISSION INSURANCE Medicaid Medicaid HMO - [place] TRANSPORTATION TO AND/OR FROM APPOINTMENTS Insurance Arranged Transportation HOME OXYGEN No HOME HEALTH CARE PRIOR TO ADMISSION No DIALYSIS No DISCUSSSED WHAT HELP PATIENT WOULD NEED Yes SDOH Completed? Yes SDOH Risks Addressed - Do Not complete until all required leger are completed Yes DISCHARGE DISPOSITION Home CM met with patient bedside. Patient provided the above information. Patient states she lives with her aunt. She uses provide a ride to get to her appointments. Preferred pharmacy is [email or web address]. PT/OT has seen patient and has cleared her with no needs. CM finds no current homegoing needs. CM will continue to follow in the event needs arise. Samira Dubon RN BSN Inpatient Software Developer Mid LevelSub Master [phone] Available Sunday-Sunday 8AM-6PM [facility] Medicine Progress Note Bryan Cruz Age [age] year old female [id number] Admitted 07/07/2024 11:09 AM Hospital Day: 2 Subjective HOSPITAL COURSE: 53 year old female with PMHx of MS relapsing/remitting, on zeposia, chronic headaches, crack/cocaine use (90 days sober), depression, fibroids, stroke, presenting from sober living facility to ED via EMS for evaluation of syncopal episode and SOB at rest that has been ongoing for appx 1.5 weeks. Ongoing dyspnea with cardiac insufficiency. Pt feels her symptoms are similar to prior MS flare. Prior cord signal noted demyelination at C2-3 that was unchanged in 06/04/24 In ED no acute overnight heart failure findings on examination. CTA did not reveal a PE but did show cardiac insufficiency. Cardiac enzymes normal VSS, COVID-flu negative INTERVAL HPI: No overnight events. Still voices diffuse fatigue and weakness/malaise Objective PHYSICAL EXAM: BP 113/63 (BP Location: right arm) Pulse 67 Temp 99.7 F (37.6 C) (Oral) Resp 18 Ht 4' 11 (1.499 m) Wt 220 lb 12.8 oz (100.2 kg) SpO2 95% BMI 44.60 kg/m Gen pleasant and cooperative HENT NCAT EOMI CV RRR nl s1s2 Lungs diminished Abd soft NTND Ext no edema Neuro DELVALLE spontaneously. Strength symmetrically intact. DATA select: Labwork is notable for normal BMP and renal function TSH ok Vitamin D 20 Alk elvira 106 Mg 1.7 Order for tomorrow: Labwork BMP mg Assessment & Plan Multiple sclerosis exacerbation (HCC) Continue zeposia at discharge, pt ask facility to bring in for dispense. Neurology to evaluate today, ophthalmology asking to see after imaging. Will coordinate plan with ophtho based on recommendations. Morbid obesity with BMI of 40.0-44.9, adult Encourage lifestyle changes, pt stopped cocaine use in remission. Encourage tobacco cessation History of cocaine abuse (HCC) In remission Current every day smoker Encourage cessation, offer nicotine replacement Vitamin D deficiency Mild low levels, continue vitamin D replacement supplementation Hyperlipidemia Continue lipitor 20mg Shortness of breath Obtain echocardiogram given findings on CTA. F/u NT-pro BNP. Cardiac insufficiency (HCC) F/u echo Hyperlipidemia, unspecified hyperlipidemia type Cont lipitor 20mg daily Dyspnea, unspecified type F/u echocardiogram Major depressive disorder in partial remission, unspecified whether recurrent (HCC) Cont cymbalta. Pt does not take zoloft. DVT PPX: lovenox CODE: Full Code DISPO: return to long-term pending neuro eval. Yousif Gillette MD 07/07/242021 Admit Note (Completed by Receiving Unit) Arrival Time: 2021 Arrived to: 8 [facility] Arrived from: ED Mode of Transport Wheelchair Transported by: Patient Transporter Admission Note Addendum Admission Attire Dressed in hospital gown Patient Behavior Calm Affect WNL documented in this encounter [facility] 07-09-2024 Evaluation + Plan note Associated Problem(s): Multiple sclerosis exacerbation (HCC) Continue zeposia Continue IV solumedrol 1g every 18 hours x 3 doses. F/u MR head and MR orbit F/u neuro recs, ophthalmology asking to see after imaging. Will coordinate plan with ophtho based on recommendations. Continue toradol 10mg as home med for pain control. Continue tylenol 500mg q6h and lyrica 300mg BID Restart lidocaine patch after MRI. [facility] 07-09-2024 Evaluation + Plan note Associated Problem(s): Morbid obesity with BMI of 40.0-44.9, adult Encourage lifestyle changes, pt stopped cocaine use in remission. Encourage tobacco cessation [facility] 07-09-2024 Evaluation + Plan note Associated Problem(s): History of cocaine abuse (HCC) In remission [facility] 07-09-2024 Evaluation + Plan note Associated Problem(s): Current every day smoker Encourage cessation, offer nicotine replacement [facility] 07-09-2024 Evaluation + Plan note Associated Problem(s): Vitamin D deficiency Mild low levels, continue vitamin D replacement supplementation [facility] 07-09-2024 Evaluation + Plan note Associated Problem(s): Hyperlipidemia Continue lipitor 20mg [facility] 07-09-2024 Evaluation + Plan note Associated Problem(s): Shortness of breath Echocardiogram normal and reassuring [facility] 07-09-2024 Evaluation + Plan note Associated Problem(s): Hyperlipidemia, unspecified hyperlipidemia type Cont lipitor 20mg daily [facility] 07-09-2024 Evaluation + Plan note Associated Problem(s): Dyspnea, unspecified type (Resolved 07/09/2024) F/u echocardiogram [facility] 07-09-2024 Evaluation + Plan note Associated Problem(s): Major depressive disorder in partial remission, unspecified whether recurrent (HCC) Cont cymbalta. [facility] 07-09-2024 Miscellaneous Notes Associated Problem(s): Multiple sclerosis exacerbation (HCC) Continue zeposia Continue IV solumedrol 1g every 18 hours x 3 doses. F/u MR head and MR orbit F/u neuro recs, ophthalmology asking to see after imaging. Will coordinate plan with ophtho based on recommendations. Continue toradol 10mg as home med for pain control. Continue tylenol 500mg q6h and lyrica 300mg BID Restart lidocaine patch after MRI. Associated Problem(s): Morbid obesity with BMI of 40.0-44.9, adult Encourage lifestyle changes, pt stopped cocaine use in remission. Encourage tobacco cessation Associated Problem(s): History of cocaine abuse (HCC) In remission Associated Problem(s): Current every day smoker Encourage cessation, offer nicotine replacement Associated Problem(s): Vitamin D deficiency Mild low levels, continue vitamin D replacement supplementation Associated Problem(s): Hyperlipidemia Continue lipitor 20mg Associated Problem(s): Shortness of breath Echocardiogram normal and reassuring Associated Problem(s): Hyperlipidemia, unspecified hyperlipidemia type Cont lipitor 20mg daily Associated Problem(s): Dyspnea, unspecified type (Resolved 07/09/2024) F/u echocardiogram Associated Problem(s): Major depressive disorder in partial remission, unspecified whether recurrent (HCC) Cont cymbalta. Associated Problem(s): Multiple sclerosis exacerbation (HCC) Continue zeposia at discharge, pt ask facility to bring in for dispense. Neurology to evaluate today, ophthalmology asking to see after imaging. Will coordinate plan with ophtho based on recommendations. Associated Problem(s): Morbid obesity with BMI of 40.0-44.9, adult Encourage lifestyle changes, pt stopped cocaine use in remission. Encourage tobacco cessation Associated Problem(s): History of cocaine abuse (HCC) In remission Associated Problem(s): Current every day smoker Encourage cessation, offer nicotine replacement Associated Problem(s): Vitamin D deficiency Mild low levels, continue vitamin D replacement supplementation Associated Problem(s): Hyperlipidemia Continue lipitor 20mg Associated Problem(s): Shortness of breath Obtain echocardiogram given findings on CTA. F/u NT-pro BNP. Associated Problem(s): Cardiac insufficiency (HCC) (Resolved 07/09/2024) F/u echo Associated Problem(s): Hyperlipidemia, unspecified hyperlipidemia type Cont lipitor 20mg daily Associated Problem(s): Dyspnea, unspecified type (Resolved 07/09/2024) F/u echocardiogram Associated Problem(s): Major depressive disorder in partial remission, unspecified whether recurrent (HCC) Cont cymbalta. Pt does not take zoloft. Associated Problem(s): Multiple sclerosis exacerbation (HCC) Continue zeposia at discharge, pt ask facility to bring in for dispense. Will review presentation with neurology as well as indication for repeat imaging. Given stable MR C spine findings within 2 months Consider ophthalmology eval given blurred vision. Associated Problem(s): Vitamin D deficiency Check levels, offer vitamin D replacement supplementation Associated Problem(s): Hyperlipidemia Continue lipitor 20mg Associated Problem(s): History of cocaine abuse (HCC) In remission Associated Problem(s): Current every day smoker Encourage cessation, offer nicotine replacement Associated Problem(s): Morbid obesity with BMI of 40.0-44.9, adult Encourage lifestyle changes, pt stopped cocaine use in remission. Encourage tobacco cessation Associated Problem(s): Shortness of breath Obtain echocardiogram given findings on CTA. F/u NT-pro BNP. 53 year old female with PMHx of MS relapsing/remitting, on zeposia, chronic headaches, crack/cocaine use (90 days sober), depression, fibroids, stroke, presenting from sober living facility to ED via EMS for evaluation of syncopal episode and SOB at rest that has been ongoing for appx 1.5 weeks. Ongoing dyspnea with cardiac insufficiency. Pt feels her symptoms are similar to prior MS flare. Prior cord signal noted demyelination at C2-3 that was unchanged in 06/04/24 In ED no acute overnight heart failure findings on examination. CTA did not reveal a PE but did show cardiac insufficiency. Cardiac enzymes normal VSS, COVID-flu negative documented in this encounter [facility] 07-09-2024 Note Hospital Medicine Pr ogress Note Yashickrosa Cruz Age [age] year old female [id number] Admitted 07/07/2024 11:09 AM Hospital Day: 3 Subjective HOSPITAL COURSE: 53 year old female with PMHx of MS relapsing/remitting, on zeposia, chronic headaches, crack/cocaine use (90 days sober), depression, fibroids, stroke, presenting from sober living facility to ED via EMS for evaluation of syncopal episode and SOB at rest that has been ongoing for appx 1.5 weeks. Ongoing dyspnea with cardiac insufficiency. Pt feels her symptoms are similar to prior MS flare. Prior cord signal noted demyelination at C2-3 that was unchanged in 06/04/24 In ED no acute overnight heart failure findings on examination. CTA did not reveal a PE but did show cardiac insufficiency. Cardiac enzymes normal VSS, COVID-flu negative INTERVAL HPI: Pt started on IV solumedrol on 07/08/2024 after evaluation by neurology. Awaiting MR head for further evaluation of MS flare. Will await read for further input from neurology and ophthalmology. Pt reports increased agitation and frustration with having to be in hospital, not getting fresh air. Desire to smoke. Pt is otherwise redirectable Objective PHYSICAL EXAM: BP 137/68 (BP Location: right arm) Pulse 70 Temp 98.6 ???F (37 ???C) (Oral) Resp 20 Ht 4' 11 (1.499 m) Wt 220 lb 12.8 oz (100.2 kg) SpO2 97% BMI 44.60 kg/m??? Gen pleasant and cooperative HENT NCAT EOMI CV RRR nl s1s2 Lungs diminished Abd soft NTND Ext no edema Neuro DELVALLE spontaneously. Strength symmetrically intact. DATA select: Labwork is notable for normal BMP and renal function TSH ok Vitamin D 20 Alk elvira 106 Mg 1.7 Order for tomorrow: Labwork BMP mg Assessment AND Plan Multiple sclerosis exacerbation (HCC) Continue zeposia Continue IV solumedrol 1g every 18 hours x 3 doses. F/u MR head and MR orbit F/u neuro recs, ophthalmology asking to see after imaging. Will coordinate plan with ophtho based on recommendations. Continue toradol 10mg as home med for pain control. Continue tylenol 500mg q6h and lyrica 300mg BID Restart lidocaine patch after MRI. Morbid obesity with BMI of 40.0-44.9, adult Encourage lifestyle changes, pt stopped cocaine use in remission. Encourage tobacco cessation History of cocaine abuse (HCC) In remission Current every day smoker Encourage cessation, offer nicotine replacement Vitamin D deficiency Mild low levels, continue vitamin D replacement supplementation Hyperlipidemia Continue lipitor 20mg Shortness of breath Echocardiogram normal and reassuring Cardiac insufficiency (HCC) (Resolved: 07/09/2024) Hyperlipidemia, unspecified hyperlipidemia type Cont lipitor 20mg daily Dyspnea, unspecified type (Resolved: 07/09/2024) F/u echocardiogram Major depressive disorder in partial remission, unspecified whether recurrent (HCC) Cont cymbalta. DVT PPX: lovenox CODE: Full Code DISPO: return to long-term pending neuro eval. Yousif Gillette MD [facility] 07-09-2024 Note CASE MANAGEMENT Patient is awaiting MRI procedure prior to discharge. CM finds no identifiable homegoing needs at this time. CM remains available should needs arise. Samira Dubon RN BSN Inpatient Software Developer Mid LevelSub Master [phone] Available Sunday-Sunday 8AM-6PM [facility] 07-08-2024 Consult note Formatting of th is note is different from the original. Images from the original note were not included. NEUROLOGY INITIAL CONSULT NOTE Reason for Consult: MS Flare, dyspnea, fatigue, blurry vision, Consulted by: Yousif Gillette MD HPI: Bryan Cruz is a 53 year old female with PMHx of MS relapsing/remitting, on zeposia, chronic headaches, crack/cocaine use (90 days sober), depression, fibroids, stroke, who initially presented from sober living facility to ED via EMS for evaluation of syncopal episode and SOB at rest that has been ongoing for appx 1.5 weeks. At that time, pt stated that she felt her symptoms were similar to prior MS flare. She noted that she missed one dose of zeposia the day before ED presentation. Prior cord signal noted demyelination at C2-C3 that was unchanged in 06/04/24. In the ED, there were no no acute overnight heart failure findings on exam. CTA did not reveal a PE, but did show cardiac insufficiency. Cardiac enzymes were normal. Pt was admitted to Medicine Team 6 floor. On interview today, pt reports that symptoms began a few days ago beginning with loss of balance progressing to weakness of both legs (R leg weaker than L). Around that time she also had blurry vision with throbbing eye pain bilaterally and a constant occipital headache. She has been taking tylenol for the pain which has helped. Pt reports that she has had loss of sensation over her fingers on both hands, but not in her toes. She has noticed recent hoarseness of her voice. States her shortness of breath is still present but improved compared to when she presented to the ED. She cannot lie flat. She described what seemed to be an apneic event. Also reports falling twice due to lightheadedness. She has been fatigued throughout stay in hospital. Denies any urinary urgency or loss of continence with this current flare. Notes that in past, she has had urinary retention with what she believes are MS flares. Pt reports that her past flares usually taper off and improve, but current flare worsened. She has never been hospitalized for a MS flare before. Last episode was around 4-5 months ago. Pt denies any common cold symptoms such as fever or cough. She has been followed by a neurologist and states she has been given steroids in the past for MS flares. Of note, patient has had recent stressors related to her housing situation. Review of Systems ROS as in the HPI. 10 point ROS otherwise reviewed for complaint and are negative. Past Medical History: Diagnosis Date Current every day smoker 05/08/2022 Added secondary to documentation in Social History. History of cocaine abuse (HCC) 05/08/2022 Hyperlipidemia 05/08/2022 Morbid obesity with BMI of 40.0-44.9, adult 02/17/2020 Multiple sclerosis exacerbation (HCC) 03/30/2020 Vitamin D deficiency 07/19/2023 No past surgical history on file. No family history on file. Social History Socioeconomic History Marital status: Single Social Drivers of Health Food Insecurity: Food Insecurity Present (07/07/2024) Hunger Vital Sign Worried About Running Out of Food in the Last Year: Sometimes true Transportation Needs: Unknown (07/07/2024) PRAPARE - Transportation Lack of Transportation (Medical): No Intimate Partner Violence: Unknown (07/07/2024) Humiliation, Afraid, Rape, and Kick questionnaire Emotionally Abused: No Vitals: 07/08/24 0824 BP: 113/63 Pulse: 67 Resp: 18 Temp: 99.7 F (37.6 C) SpO2: 95% No intake or output data in the 24 hours ending 07/08/24 1257 Current Facility-Administered Medications: lidocaine (LIDODERM) 4 % patch, 1 Patch, Transdermal, Every 24 hours, Yousif Gillette MD, 1 Patch at 07/08/24 1124 baclofen (LIORESAL) 20 MG tablet, 20 mg, Oral, Daily with breakfast, Yousif Gillette MD baclofen (LIORESAL) 20 MG tablet, 40 mg, Oral, At Bedtime, Yousif Gillette MD, 40 mg at 07/08/24 0006 famotidine (PEPCID) tablet, 20 mg, Oral, 2x Daily, Yousif Gillette MD, 20 mg at 07/08/24 0858 DULoxetine (CYMBALTA) capsule, 60 mg, Oral, At Bedtime, Yousif Gillette MD, 60 mg at 07/08/24 0006 atorvastatin (LIPITOR) tablet, 20 mg, Oral, Daily, Yousif Gillette MD, 20 mg at 07/08/24 0858 acetaminophen (TYLENOL) tablet, 500 mg, Oral, Q8H PRN, Yousif Gillette MD, 500 mg at 07/08/24 0858 enoxaparin (LOVENOX) 40 MG/0.4ML injection 40 mg, 40 mg, Subcutaneous, Daily, Yousif Gillette MD, 40 mg at 07/07/24 1717 lidocaine (LIDODERM) 4 % patch, 2 Patch, Transdermal, Every 24 hours, Yousif Gillette MD, 2 Patch at 07/07/24 1455 Exam Neurologic: Cognition: Sedation: none Level of consciousness: awake, alert, but tired Affect: normal Orientation: oriented Attention: normal Language: intact fluency, Fund of knowledge: appropriate Cranial Nerves CN II: Vision: visual leger intact to finger count Pupils: Equal, reactive to light bilaterally CN III, IV, : Extraocular movements: intact CN V: Facial sensation: Asymmetric, diminished facial sensation on right forehead, cheeks, chin compared to left side of face CN VII: Facial motor function: intact and symmetric CN VIII: Hearing: intact to conversation, finger rub CN IX, X: Palate elevation: symmetric. Dysarthria: hoarse voice CN XI: Shoulder shrug: normal CN XII: Tongue: midline; able to move fully to R and L Motor Tone: normal Spontaneous abnormal movements:none RIGHT LEFT Deltoids 5 5 Biceps 5 5 Triceps 5 5 Hand 5 5 Hip flexion 5 5 Knee extension 5 5 Knee flexion 5 5 Dorsiflexion 5 5 Plantarflexion 5 5 DTRs R Biceps: 2 Triceps: 1 Patellar: 1 Ankle: 2 L Biceps: 2 Triceps: 1 Patellar: 1 Ankle: 2 Sensation Diminished sensation to light touch over the left upper extremity Sensation over RUE, LLE, and RLE are intact Coordination R: intact on FNF, HTS L: intact on FNF, HTS General appearance: normal appearing at stated age Head: atraumatic Neck: supple Eyes/orbits: no scleral icterus, edema or injection Mucous membranes: moist Lungs: CTAB Heart: regular rate, regular rhythm Abdomen: soft Extremities: no deformities Skin: no rash Labs: CBC (last 3 years, up to 8 values) 07/08/2024 07/07/2024 4:53 AM 11:47 AM WBC 11.1 8.4 RBC 4.45 4.87 Hgb 13.5 14.7 Hct 41.1 45.3 MCV 92 93 RDW 13.4 13.3 Plt 333 323 BMP (last 3 years, up to 8 values) 07/08/2024 07/07/2024 07/07/2024 4:53 AM 1:22 PM 11:47 AM Na 141 -- 139 K 4.1 3.8 7.8 Cl 104 -- 104 CO2 28 -- 30 Gap 13 -- 13 Glu 108 -- 89 BUN 17 -- 12 Cr 0.58 -- 0.66 Ca 8.8 -- 8.8 eGFR 107 -- 104 Lab Results Component Value Date HBA1C 6.3 (H) 08/30/2023 Lipids (last 3 years, up to 8 values) No lab values to display. Summary of Imaging & Other Pertinent Studies: personally reviewed CTA Chest Pulmonary Embolism - 1. No PE identified. PE cannot be evaluated beyond the segmental level due to the limitations above. 2. Borderline cardiomegaly, with contrast reflux into the IVC suggestive of cardiac insufficiency. CT Head Without Contrast No acute intracranial abnormality. X-ray Chest PA+Lat No acute cardiopulmonary abnormality identified. MR C-SPINE W/+W/O Stable cord signal abnormality at C2-C3 No new suspicious cord signal abnormalities No suspicious enhancements ASSESSMENT: Bryan Cruz is a 53 year old female with PMHx of Multiple Sclerosis relapsing/remitting, on zeposia, chronic headaches, crack/cocaine use (90 days sober), depression, fibroids, stroke, who presented to ED for evaluation of syncopal episode and SOB at rest. Pt was admitted to Medicine Team 6 floor. Neurology was consulted for evaluation of MS flare. Pt presents with symptoms that are difficult to localize to a specific neurologic region, but may still be due to an acute MS flare. The presence of her impaired balance and new voice hoarseness suggests a possible new lesion likely in the brainstem. She reports ongoing stress with related to housing situation could be a potential trigger for recent exacerbation. Patient would benefit from further evaluation with MRI of Brain w/ and w/o contrast. Recommend starting 1000 mg Methylprednisolone daily for 3 days. Regarding the patient's recent dyspnea and syncopal event, symptoms do not appear to be due to neurologic cause due to presenting as dyspnea on exertion rather than apnea. It is more likely cardiac related, especially in the setting of lightheadedness leading to falls. Will follow up with Medicine team for management of dyspnea. RECS: - MRI of Brain w/ and w/o contrast, in the comments Thin slices through the brainstem - Recommend starting 1000 mg Methylprednisolone q18hrs for 3 days. Will discontinue depending on MRI results. - agree with current syncope work up, add heart monitor on discharge. - orthostatic blood pressures Teaching Physician/CATALYST IMPREGNATOR/PA Note: I saw and evaluated the patient. I personally performed (or reperformed) the physical exam and medical decision?making components of the visit. I reviewed the student documentation, copying appropriate sections into my note, and verified the findings in the note as written, or edited the note, as appropriate. Alva Ziegler MD Neurology/Neurocritical Care Neurology service pager (for floor and ED consults): [phone] [facility] 07-08-2024 Consult note Formatting of th is note is different from the original. Images from the original note were not included. NEUROLOGY INITIAL CONSULT NOTE Reason for Consult: MS Flare, dyspnea, fatigue, blurry vision, Consulted by: Yousif Gillette MD HPI: Bryan Cruz is a 53 year old female with PMHx of MS relapsing/remitting, on zeposia, chronic headaches, crack/cocaine use (90 days sober), depression, fibroids, stroke, who initially presented from sober living facility to ED via EMS for evaluation of syncopal episode and SOB at rest that has been ongoing for appx 1.5 weeks. At that time, pt stated that she felt her symptoms were similar to prior MS flare. She noted that she missed one dose of zeposia the day before ED presentation. Prior cord signal noted demyelination at C2-C3 that was unchanged in 06/04/24. In the ED, there were no no acute overnight heart failure findings on exam. CTA did not reveal a PE, but did show cardiac insufficiency. Cardiac enzymes were normal. Pt was admitted to Medicine Team 6 floor. On interview today, pt reports that symptoms began a few days ago beginning with loss of balance progressing to weakness of both legs (R leg weaker than L). Around that time she also had blurry vision with throbbing eye pain bilaterally and a constant occipital headache. She has been taking tylenol for the pain which has helped. Pt reports that she has had loss of sensation over her fingers on both hands, but not in her toes. She has noticed recent hoarseness of her voice. States her shortness of breath is still present but improved compared to when she presented to the ED. She cannot lie flat. She described what seemed to be an apneic event. Also reports falling twice due to lightheadedness. She has been fatigued throughout stay in hospital. Denies any urinary urgency or loss of continence with this current flare. Notes that in past, she has had urinary retention with what she believes are MS flares. Pt reports that her past flares usually taper off and improve, but current flare worsened. She has never been hospitalized for a MS flare before. Last episode was around 4-5 months ago. Pt denies any common cold symptoms such as fever or cough. She has been followed by a neurologist and states she has been given steroids in the past for MS flares. Of note, patient has had recent stressors related to her housing situation. Review of Systems ROS as in the HPI. 10 point ROS otherwise reviewed for complaint and are negative. Past Medical History: Diagnosis Date Current every day smoker 05/08/2022 Added secondary to documentation in Social History. History of cocaine abuse (HCC) 05/08/2022 Hyperlipidemia 05/08/2022 Morbid obesity with BMI of 40.0-44.9, adult 02/17/2020 Multiple sclerosis exacerbation (HCC) 03/30/2020 Vitamin D deficiency 07/19/2023 No past surgical history on file. No family history on file. Social History Socioeconomic History Marital status: Single Social Drivers of Health Food Insecurity: Food Insecurity Present (07/07/2024) Hunger Vital Sign Worried About Running Out of Food in the Last Year: Sometimes true Transportation Needs: Unknown (07/07/2024) PRAPARE - Transportation Lack of Transportation (Medical): No Intimate Partner Violence: Unknown (07/07/2024) Humiliation, Afraid, Rape, and Kick questionnaire Emotionally Abused: No Vitals: 07/08/24 0824 BP: 113/63 Pulse: 67 Resp: 18 Temp: 99.7 F (37.6 C) SpO2: 95% No intake or output data in the 24 hours ending 07/08/24 1257 Current Facility-Administered Medications: lidocaine (LIDODERM) 4 % patch, 1 Patch, Transdermal, Every 24 hours, Yousif Gillette MD, 1 Patch at 07/08/24 1124 baclofen (LIORESAL) 20 MG tablet, 20 mg, Oral, Daily with breakfast, Yousif Gillette MD baclofen (LIORESAL) 20 MG tablet, 40 mg, Oral, At Bedtime, Yousif Gillette MD, 40 mg at 07/08/24 0006 famotidine (PEPCID) tablet, 20 mg, Oral, 2x Daily, Yousif Gillette MD, 20 mg at 07/08/24 0858 DULoxetine (CYMBALTA) capsule, 60 mg, Oral, At Bedtime, Yousif Gillette MD, 60 mg at 07/08/24 0006 atorvastatin (LIPITOR) tablet, 20 mg, Oral, Daily, Yousif Gillette MD, 20 mg at 07/08/24 0858 acetaminophen (TYLENOL) tablet, 500 mg, Oral, Q8H PRN, Yousif Gillette MD, 500 mg at 07/08/24 0858 enoxaparin (LOVENOX) 40 MG/0.4ML injection 40 mg, 40 mg, Subcutaneous, Daily, Yousif Gillette MD, 40 mg at 07/07/24 1717 lidocaine (LIDODERM) 4 % patch, 2 Patch, Transdermal, Every 24 hours, Yousif Gillette MD, 2 Patch at 07/07/24 1455 Exam Neurologic: Cognition: Sedation: none Level of consciousness: awake, alert, but tired Affect: normal Orientation: oriented Attention: normal Language: intact fluency, Fund of knowledge: appropriate Cranial Nerves CN II: Vision: visual leger intact to finger count Pupils: Equal, reactive to light bilaterally CN III, IV, : Extraocular movements: intact CN V: Facial sensation: Asymmetric, diminished facial sensation on right forehead, cheeks, chin compared to left side of face CN VII: Facial motor function: intact and symmetric CN VIII: Hearing: intact to conversation, finger rub CN IX, X: Palate elevation: symmetric. Dysarthria: hoarse voice CN XI: Shoulder shrug: normal CN XII: Tongue: midline; able to move fully to R and L Motor Tone: normal Spontaneous abnormal movements:none RIGHT LEFT Deltoids 5 5 Biceps 5 5 Triceps 5 5 Hand 5 5 Hip flexion 5 5 Knee extension 5 5 Knee flexion 5 5 Dorsiflexion 5 5 Plantarflexion 5 5 DTRs R Biceps: 2 Triceps: 1 Patellar: 1 Ankle: 2 L Biceps: 2 Triceps: 1 Patellar: 1 Ankle: 2 Sensation Diminished sensation to light touch over the left upper extremity Sensation over RUE, LLE, and RLE are intact Coordination R: intact on FNF, HTS L: intact on FNF, HTS General appearance: normal appearing at stated age Head: atraumatic Neck: supple Eyes/orbits: no scleral icterus, edema or injection Mucous membranes: moist Lungs: CTAB Heart: regular rate, regular rhythm Abdomen: soft Extremities: no deformities Skin: no rash Labs: CBC (last 3 years, up to 8 values) 07/08/2024 07/07/2024 4:53 AM 11:47 AM WBC 11.1 8.4 RBC 4.45 4.87 Hgb 13.5 14.7 Hct 41.1 45.3 MCV 92 93 RDW 13.4 13.3 Plt 333 323 BMP (last 3 years, up to 8 values) 07/08/2024 07/07/2024 07/07/2024 4:53 AM 1:22 PM 11:47 AM Na 141 -- 139 K 4.1 3.8 7.8 Cl 104 -- 104 CO2 28 -- 30 Gap 13 -- 13 Glu 108 -- 89 BUN 17 -- 12 Cr 0.58 -- 0.66 Ca 8.8 -- 8.8 eGFR 107 -- 104 Lab Results Component Value Date HBA1C 6.3 (H) 08/30/2023 Lipids (last 3 years, up to 8 values) No lab values to display. Summary of Imaging & Other Pertinent Studies: personally reviewed CTA Chest Pulmonary Embolism - 1. No PE identified. PE cannot be evaluated beyond the segmental level due to the limitations above. 2. Borderline cardiomegaly, with contrast reflux into the IVC suggestive of cardiac insufficiency. CT Head Without Contrast No acute intracranial abnormality. X-ray Chest PA+Lat No acute cardiopulmonary abnormality identified. MR C-SPINE W/+W/O Stable cord signal abnormality at C2-C3 No new suspicious cord signal abnormalities No suspicious enhancements ASSESSMENT: Bryan Cruz is a 53 year old female with PMHx of Multiple Sclerosis relapsing/remitting, on zeposia, chronic headaches, crack/cocaine use (90 days sober), depression, fibroids, stroke, who presented to ED for evaluation of syncopal episode and SOB at rest. Pt was admitted to Medicine Team 6 floor. Neurology was consulted for evaluation of MS flare. Pt presents with symptoms that are difficult to localize to a specific neurologic region, but may still be due to an acute MS flare. The presence of her impaired balance and new voice hoarseness suggests a possible new lesion likely in the brainstem. She reports ongoing stress with related to housing situation could be a potential trigger for recent exacerbation. Patient would benefit from further evaluation with MRI of Brain w/ and w/o contrast. Recommend starting 1000 mg Methylprednisolone daily for 3 days. Regarding the patient's recent dyspnea and syncopal event, symptoms do not appear to be due to neurologic cause due to presenting as dyspnea on exertion rather than apnea. It is more likely cardiac related, especially in the setting of lightheadedness leading to falls. Will follow up with Medicine team for management of dyspnea. RECS: - MRI of Brain w/ and w/o contrast, in the comments Thin slices through the brainstem - Recommend starting 1000 mg Methylprednisolone q18hrs for 3 days. Will discontinue depending on MRI results. - agree with current syncope work up, add heart monitor on discharge. - orthostatic blood pressures Teaching Physician/CATALYST IMPREGNATOR/PA Note: I saw and evaluated the patient. I personally performed (or reperformed) the physical exam and medical decision?making components of the visit. I reviewed the student documentation, copying appropriate sections into my note, and verified the findings in the note as written, or edited the note, as appropriate. Alva Ziegler MD Neurology/Neurocritical Care Neurology service pager (for floor and ED consults): [phone] Associated Order(s): IP PHYSICAL THERAPY SERVICE REQUEST PHYSICAL THERAPY ACUTE EVALUATION Referral received, chart reviewed. Patient seen from 9:05 am to 9:26 am on 8E unit for 21 minutes. Patient seen as co-evaluation with occupational therapy secondary to safety concerns + MS flare (can be variable presentations) Admit date/time: 07/07/2024 11:09 AM Reason for Admit: 53 yo female admitted with syncopal episode and SOB Diagnosis: Multiple sclerosis exacerbation Precautions: Mod falls risk Full code Regular diet Activity as tolerated Procedures this admit: None Past Medical and Surgical History: Past Medical History: Diagnosis Date Current every day smoker 05/08/2022 Added secondary to documentation in Social History. History of cocaine abuse (HCC) 05/08/2022 Hyperlipidemia 05/08/2022 Morbid obesity with BMI of 40.0-44.9, adult 02/17/2020 Multiple sclerosis exacerbation (HCC) 03/30/2020 Vitamin D deficiency 07/19/2023 No past surgical history on file. Identification was verified by patient verbalizing his/her name and date of . 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 Reports falls only happen when flares happen. Home: 4 steps to enter with rails. 2 flights of steps to bedroom/bathroom with rails. Assistance available: roommates Equipment available: none OBJECTIVE: Appearance: Supine in bed Hospital gown Hep-locked IV Behavior: Awake Alert Cooperative Pleasant Motivated Oriented x 3 Follows simple step commands consistently Pain: Site/Location: generalized ; Pain Scale: 8 /10 Pain Relief Interventions Implemented: Positioning, Rest, Relaxation Training, and RN aware and reports patient received medication according to time schedule Passive ROM: Bilateral LE WFL Strength/Active ROM: LE L / R Hip flexors At least 3/5 bilat quadriceps 4- / 4- hamstrings 3+ / 3+ Ankle DF 4+ / 4+ Sensation: Denies numbness and tingling in LE Mobility: Assistance level N/A Dep Max Mod Min CGA CS Sup DS Mod I I Comments Supine to sit X Increased time, mild difficulty Sit to/from stand X EOB to no AD Toilet to no AD Transfers X Toilet transfer with no AD Ambulation X 150 feet x 2 with no AD Slow speed, short strides, WBOS, increased lateral sway Initial unsteadiness that improves with distance Patient reports she feels near baseline Stairs X 4 steps x 2 with bilateral railings Fast speed, grossly steady, reciprocal Seated Balance X Static: Good Dynamic: Good on toilet Standing Balance X X Static: Good no AD Dynamic: Good no AD Endurance: Good ; near baseline Patient Education: Instructed Patient in roles, goals, treatment plan: demonstrated good verbal understanding. Patient up in chair with call light in reach. DME: With Patients permission ordered no equipment via [employer] Order. If any questions contact [facility] DME Provider at [phone]. 6 Clicks Basic Mobility PT 07/08/24 Difficulty turning over in bed 4 Difficulty sitting down and standing up from a chair with arms 4 Difficulty moving from lying on back to sitting on the side of the bed 4 Help from another person moving to and from bed to a chair 4 Help from another person to walk in hospital room 4 Help from another person climbing 3-5 steps with a railing 4 PT 6 Clicks Score 24 6 Click Score Guidelines: 1 - Total = Requires total assistance, or cannot do at all. 2 - A lot = Requires a lot of help (maximun to moderate assistance) Can use assistive devices. 3 - A little = Requires a little help (supervision, minimal assistance) Can use assistive devices. 4 - None = Does not require any help and does the activity independently. Can use assistive devices. Progressive Mobility Protocol Score: Level 4 ASSESSMENT: Bryan Cruz is a 53 year old female admitted with syncopal episode and SOB and diagnosed with MS exacerbation. At time of evaluation patient was able to mobilize and ambulate near her baseline level despite slight weakness from the exacerbation. Therefore, Patient is functionally appropriate for discharge home once medically cleared. No further Physical Therapy services recommended at this time. PLAN OF CARE: Discharge acute PT this date The evaluation findings and treatment plan were discussed with the patient. The patient indicated understanding and agreement with the plan. Gia Quarles, PT, DPT NA = Not Assessed, I = Independent, MA = Modified Independent, Sup = Supervised, Set up = Physical Assistance for Set-up Only, Min = Minimal Assistance, Mod = Moderate Assistance, Max = Max assistance; Dep = Dependent; AROM = Active Range of Motion; PROM = Passive Range of Motion; MMT = Manual Muscle Test; LE = Lower Extremity Associated Order(s): IP OCCUPATIONAL THERAPY SERVICE REQUEST OCCUPATIONAL THERAPY INITIAL EVALUATION Patient seen from 904 to 924 on GC8E unit for 20 minutes for eval with PT 2/2 pt with full body pain and low tolerance. Reason for Admit: SOB x 1.5 weeks Diagnosis: MS exacerbation Precautions/Activity Order: moderate falls, full code, regular diet, activity as tolerated Procedures this admit: none Past Medical and Surgical History: PMH: Past Medical History: Diagnosis Date Current every day smoker 05/08/2022 Added secondary to documentation in Social History. History of cocaine abuse (HCC) 05/08/2022 Hyperlipidemia 05/08/2022 Morbid obesity with BMI of 40.0-44.9, adult 02/17/2020 Multiple sclerosis exacerbation (HCC) 03/30/2020 Vitamin D deficiency 07/19/2023 PSH: No past surgical history on file. SUBJECTIVE: Patient Subjective: every time I have a flare my body responds differently Patient Identified Goal(s): agreeable to therapy evaluation Home Living Situation Prior Functional Status: Independent Living independent with Activities of Daily Living Independent Ambulation without assistive device Independent with Instrumental Activities of Daily Living 2 fall last 6 months - working Assistance Available at Home: roommates at sober living house are helpful and can help PRN Patient lives in a multilevel sober house with 4 stairs to enter rail. (Been here x1 month) Full Bathroom on 3rd level. Bedroom on 3 level. Equipment available at home: no equipment OBJECTIVE: Patient Identification: patient verbalizing his/her name and date of . and patient's id band and date of . Risks and benefits of occupational therapy: Patient informed of risks and benefits of treatment Appearance: supine in bed on arrival, hospital gown, hep-locked IV Alertness: WFL Affect: WNL Cooperation/Behavior: Appropriate dialogue with therapist and Pleasant and cooperative Communication: WFL but tangential Pain: Pain ratin/10, Location: full body Pain Relief Interventions Implemented: RN aware and reports patient received medication according to time schedule Self Care: Assistance Level Dep Max Mod Min CG CS DS MA I Set-Up Comment Feeding x Meal tray Grooming/Hygiene x Washed hands standing at sink Bathing:UB x Simulated sponge bathing Bathing:LB x Simulated seated Dressing:UB x Doff/don gown seated Dressing: LB x Demo'd figure 4 positioning seated EOB Toileting x Voided seated on toilet, hygiene completed seated. Pt able to manage underwear over hips in standing Transfers/Bed Mobility: Assistance Level Dep Max Mod Min CG CS DS MA I Set-Up Comment Toilet Transfers x To/from toilet Bed Transfers x Sit to stand from EOB. Greater than household distance functional mobility to bathroom and in ortiz without AD, WBOS with lateral sway however pt reports ambulating at baseline level. Mild unsteadiness initially but improved with distance. Stand to sit in chair. Bed Mobility x Supine to sit EOB with HOB flat Patient seated in chair end of session with call light and phone within reach and all current needs met. Endurance for Self Care: Fair, mild SOB with activity however SpO2 WFL on RA during mobility Static Sitting Balance: WFL Dynamic Sitting Balance: WFL UE Motor: BUE AROM WFL, MMT grossly 4/5 throughout Vision/Perception: wears glasses at baseline however not present this admission; blurry vision at baseline Cognition: Orientation: Oriented to person, place, and date Follows Commands: WFL Attention: easily distracted during task Memory: WFL Problem Solving: WFL Safety/Judgement: WFL Sequencing: WFL Other Specialized Tests: None Patient/Family Education: Instructed patient in roles of therapy, OOBTC for 1 hour, encouraged ambulation while in house Patient up in chair with call light in reach. DME: With Patients permission ordered no equipment via [employer] Order. If any questions contact [facility] DME Provider at [phone]. 6 Clicks Daily Activity OT 07/08/24 Help from another person Eating meals 4 Help from another person taking care of personal grooming 4 Help from another person bathing 4 Help from another person putting on and taking off regular upper body clothing 4 Help from another person putting on and taking off regular lower body clothing 4 Help from another person toileting 4 OT 6 Clicks Score 24 6 Click Score Guidelines: 1 - Unable = Total/Dependent Assist 2 - A lot = Max/Moderate Assist 3 - A little = Minimum/Contact Guard Assist/Supervision 4 - Non = Modified [place]/Independent ASSESSMENT: Patient is functionally appropriate for discharge home once medically cleared. No further Occupational Therapy Services reccommended at this time. PLAN: Bryan Cruz will be d/c acute OT services able to discuss the evaluation findings and treatment plan with the patient/family. The patient/family did participate in the development of plan and goals. Shae Zuleta OTR/L NA = Not Assessed, I = Independent, MA = Modified Independent, Sup = Supervised, Set up = Physical Assistance for Set-up Only, Min = Minimal Assistance, Mod = Moderate Assistance, Max = Max assistance; Dep = Dependent; AROM = Active Range of Motion;PROM=Passive Range of Motion; MMT = Manual Muscle Test; UB = Upper Body; LB = Lower Body documented in this encounter [facility] 07-08-2024 Note 07/08/24 1459 Assessment and Discharge Planning Evaluation READMISSION LESS THAN 30 DAYS No READMISSION RISK SCORE IS Low Risk INTERVIEWED Patient COGNITIVE STATUS Oriented FUNCTIONAL STATUS PRIOR TO ADMISSION Ambulatory HAS ADVANCE DIRECTIVE ON FILE No LIVING SITUATION Home with Family CONNECTED TO MENTAL HEALTH SERVICES Unknown CONNECTED TO COMMUNITY SERVICES Unknown CONNECTED TO SUBSTANCE ABUSE SERVICES Unknown ADMISSION INSURANCE Medicaid Medicaid HMO - [place] TRANSPORTATION TO AND/OR FROM APPOINTMENTS Insurance Arranged Transportation HOME OXYGEN No HOME HEALTH CARE PRIOR TO ADMISSION No DIALYSIS No DISCUSSSED WHAT HELP PATIENT WOULD NEED Yes SDOH Completed? Yes SDOH Risks Addressed - Do Not complete until all required leger are completed Yes DISCHARGE DISPOSITION Home CM met with patient bedside. Patient provided the above information. Patient states she lives with her aunt. She uses provide a ride to get to her appointments. Preferred pharmacy is [email or web address]. PT/OT has seen patient and has cleared her with no needs. CM finds no current homegoing needs. CM will continue to follow in the event needs arise. Samira Dubon RN BSN Inpatient Software Developer Mid LevelSub Master [phone] Available Sunday-Sunday 8AM-6PM [employer] 07-08-2024 Evaluation + Plan note Associated Problem(s): Multiple sclerosis exacerbation (HCC) Continue zeposia at discharge, pt ask facility to bring in for dispense. Neurology to evaluate today, ophthalmology asking to see after imaging. Will coordinate plan with ophtho based on recommendations. [facility] 07-08-2024 Evaluation + Plan note Associated Problem(s): Morbid obesity with BMI of 40.0-44.9, adult Encourage lifestyle changes, pt stopped cocaine use in remission. Encourage tobacco cessation [facility] 07-08-2024 Evaluation + Plan note Associated Problem(s): History of cocaine abuse (HCC) In remission [facility] 07-08-2024 Evaluation + Plan note Associated Problem(s): Current every day smoker Encourage cessation, offer nicotine replacement [facility] 07-08-2024 Evaluation + Plan note Associated Problem(s): Vitamin D deficiency Mild low levels, continue vitamin D replacement supplementation [facility] 07-08-2024 Evaluation + Plan note Associated Problem(s): Hyperlipidemia Continue lipitor 20mg [facility] 07-08-2024 Evaluation + Plan note Associated Problem(s): Shortness of breath Obtain echocardiogram given findings on CTA. F/u NT-pro BNP. [facility] 07-08-2024 Evaluation + Plan note Associated Problem(s): Cardiac insufficiency (HCC) (Resolved 07/09/2024) F/u echo [facility] 07-08-2024 Evaluation + Plan note Associated Problem(s): Hyperlipidemia, unspecified hyperlipidemia type Cont lipitor 20mg daily [facility] 07-08-2024 Evaluation + Plan note Associated Problem(s): Dyspnea, unspecified type (Resolved 07/09/2024) F/u echocardiogram [facility] 07-08-2024 Evaluation + Plan note Associated Problem(s): Major depressive disorder in partial remission, unspecified whether recurrent (HCC) Cont cymbalta. Pt does not take zoloft. [facility] 07-08-2024 Note Hospital Medicine Pr chana Note Bryan Cruz Age [age] year old female [id number] Admitted 07/07/2024 11:09 AM Hospital Day: 2 Subjective HOSPITAL COURSE: 53 year old female with PMHx of MS relapsing/remitting, on zeposia, chronic headaches, crack/cocaine use (90 days sober), depression, fibroids, stroke, presenting from sober living facility to ED via EMS for evaluation of syncopal episode and SOB at rest that has been ongoing for appx 1.5 weeks. Ongoing dyspnea with cardiac insufficiency. Pt feels her symptoms are similar to prior MS flare. Prior cord signal noted demyelination at C2-3 that was unchanged in 06/04/24 In ED no acute overnight heart failure findings on examination. CTA did not reveal a PE but did show cardiac insufficiency. Cardiac enzymes normal VSS, COVID-flu negative INTERVAL HPI: No overnight events. Still voices diffuse fatigue and weakness/malaise Objective PHYSICAL EXAM: BP 113/63 (BP Location: right arm) Pulse 67 Temp 99.7 ???F (37.6 ???C) (Oral) Resp 18 Ht 4' 11 (1.499 m) Wt 220 lb 12.8 oz (100.2 kg) SpO2 95% BMI 44.60 kg/m??? Gen pleasant and cooperative HENT NCAT EOMI CV RRR nl s1s2 Lungs diminished Abd soft NTND Ext no edema Neuro DELVALLE spontaneously. Strength symmetrically intact. DATA select: Labwork is notable for normal BMP and renal function TSH ok Vitamin D 20 Alk elvira 106 Mg 1.7 Order for tomorrow: Labwork BMP mg Assessment AND Plan Multiple sclerosis exacerbation (HCC) Continue zeposia at discharge, pt ask facility to bring in for dispense. Neurology to evaluate today, ophthalmology asking to see after imaging. Will coordinate plan with ophtho based on recommendations. Morbid obesity with BMI of 40.0-44.9, adult Encourage lifestyle changes, pt stopped cocaine use in remission. Encourage tobacco cessation History of cocaine abuse (HCC) In remission Current every day smoker Encourage cessation, offer nicotine replacement Vitamin D deficiency Mild low levels, continue vitamin D replacement supplementation Hyperlipidemia Continue lipitor 20mg Shortness of breath Obtain echocardiogram given findings on CTA. F/u NT-pro BNP. Cardiac insufficiency (HCC) F/u echo Hyperlipidemia, unspecified hyperlipidemia type Cont lipitor 20mg daily Dyspnea, unspecified type F/u echocardiogram Major depressive disorder in partial remission, unspecified whether recurrent (HCC) Cont cymbalta. Pt does not take zoloft. DVT PPX: lovenox CODE: Full Code DISPO: return to long-term pending neuro eval. Yousif Gillette MD [facility] 07-08-2024 Consult note Associated Order (s): IP PHYSICAL THERAPY SERVICE REQUEST PHYSICAL THERAPY ACUTE EVALUATION Referral received, chart reviewed. Patient seen from 9:05 am to 9:26 am on 8E unit for 21 minutes. Patient seen as co-evaluation with occupational therapy secondary to safety concerns + MS flare (can be variable presentations) Admit date/time: 07/07/2024 11:09 AM Reason for Admit: 53 yo female admitted with syncopal episode and SOB Diagnosis: Multiple sclerosis exacerbation Precautions: Mod falls risk Full code Regular diet Activity as tolerated Procedures this admit: None Past Medical and Surgical History: Past Medical History: Diagnosis Date Current every day smoker 05/08/2022 Added secondary to documentation in Social History. History of cocaine abuse (HCC) 05/08/2022 Hyperlipidemia 05/08/2022 Morbid obesity with BMI of 40.0-44.9, adult 02/17/2020 Multiple sclerosis exacerbation (HCC) 03/30/2020 Vitamin D deficiency 07/19/2023 No past surgical history on file. Identification was verified by patient verbalizing his/her name and date of . 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 Reports falls only happen when flares happen. Home: 4 steps to enter with rails. 2 flights of steps to bedroom/bathroom with rails. Assistance available: roommates Equipment available: none OBJECTIVE: Appearance: Supine in bed Hospital gown Hep-locked IV Behavior: Awake Alert Cooperative Pleasant Motivated Oriented x 3 Follows simple step commands consistently Pain: Site/Location: generalized ; Pain Scale: 8 /10 Pain Relief Interventions Implemented: Positioning, Rest, Relaxation Training, and RN aware and reports patient received medication according to time schedule Passive ROM: Bilateral LE WFL Strength/Active ROM: LE L / R Hip flexors At least 3/5 bilat quadriceps 4- / 4- hamstrings 3+ / 3+ Ankle DF 4+ / 4+ Sensation: Denies numbness and tingling in LE Mobility: Assistance level N/A Dep Max Mod Min CGA CS Sup DS Mod I I Comments Supine to sit X Increased time, mild difficulty Sit to/from stand X EOB to no AD Toilet to no AD Transfers X Toilet transfer with no AD Ambulation X 150 feet x 2 with no AD Slow speed, short strides, WBOS, increased lateral sway Initial unsteadiness that improves with distance Patient reports she feels near baseline Stairs X 4 steps x 2 with bilateral railings Fast speed, grossly steady, reciprocal Seated Balance X Static: Good Dynamic: Good on toilet Standing Balance X X Static: Good no AD Dynamic: Good no AD Endurance: Good ; near baseline Patient Education: Instructed Patient in roles, goals, treatment plan: demonstrated good verbal understanding. Patient up in chair with call light in reach. DME: With Patients permission ordered no equipment via [employer] Order. If any questions contact [facility] DME Provider at [phone]. 6 Clicks Basic Mobility PT 07/08/24 Difficulty turning over in bed 4 Difficulty sitting down and standing up from a chair with arms 4 Difficulty moving from lying on back to sitting on the side of the bed 4 Help from another person moving to and from bed to a chair 4 Help from another person to walk in hospital room 4 Help from another person climbing 3-5 steps with a railing 4 PT 6 Clicks Score 24 6 Click Score Guidelines: 1 - Total = Requires total assistance, or cannot do at all. 2 - A lot = Requires a lot of help (maximun to moderate assistance) Can use assistive devices. 3 - A little = Requires a little help (supervision, minimal assistance) Can use assistive devices. 4 - None = Does not require any help and does the activity independently. Can use assistive devices. Progressive Mobility Protocol Score: Level 4 ASSESSMENT: Bryan Cruz is a 53 year old female admitted with syncopal episode and SOB and diagnosed with MS exacerbation. At time of evaluation patient was able to mobilize and ambulate near her baseline level despite slight weakness from the exacerbation. Therefore, Patient is functionally appropriate for discharge home once medically cleared. No further Physical Therapy services recommended at this time. PLAN OF CARE: Discharge acute PT this date The evaluation findings and treatment plan were discussed with the patient. The patient indicated understanding and agreement with the plan. Gia Quarles, PT, DPT NA = Not Assessed, I = Independent, MA = Modified Independent, Sup = Supervised, Set up = Physical Assistance for Set-up Only, Min = Minimal Assistance, Mod = Moderate Assistance, Max = Max assistance; Dep = Dependent; AROM = Active Range of Motion; PROM = Passive Range of Motion; MMT = Manual Muscle Test; LE = Lower Extremity [facility] 07-08-2024 Note PHYSICAL THERAPY ACU TE EVALUATION Referral received, chart reviewed. Patient seen from 9:05 am to 9:26 am on 8E unit for 21 minutes. Patient seen as co-evaluation with occupational therapy secondary to safety concerns + MS flare (can be variable presentations) Admit date/time: 07/07/2024 11:09 AM Reason for Admit: 53 yo female admitted with syncopal episode and SOB Diagnosis: Multiple sclerosis exacerbation Precautions: Mod falls risk Full code Regular diet Activity as tolerated Procedures this admit: None Past Medical and Surgical History: Past Medical History: Diagnosis Date Current every day smoker 05/08/2022 Added secondary to documentation in Social History. History of cocaine abuse (HCC) 05/08/2022 Hyperlipidemia 05/08/2022 Morbid obesity with BMI of 40.0-44.9, adult 02/17/2020 Multiple sclerosis exacerbation (HCC) 03/30/2020 Vitamin D deficiency 07/19/2023 No past surgical history on file. Identification was verified by patient verbalizing his/her name and date of . 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 Reports falls only happen when flares happen. Home: 4 steps to enter with rails. 2 flights of steps to bedroom/bathroom with rails. Assistance available: roommates Equipment available: none OBJECTIVE: Appearance: Supine in bed Hospital gown Hep-locked IV Behavior: Awake Alert Cooperative Pleasant Motivated Oriented x 3 Follows simple step commands consistently Pain: Site/Location: generalized ; Pain Scale: 8 /10 Pain Relief Interventions Implemented: Positioning, Rest, Relaxation Training, and RN aware and reports patient received medication according to time schedule Passive ROM: Bilateral LE WFL Strength/Active ROM: LE L / R Hip flexors At least 3/5 bilat quadriceps 4- / 4- hamstrings 3+ / 3+ Ankle DF 4+ / 4+ Sensation: Denies numbness and tingling in LE Mobility: Assistance level N/A Dep Max Mod Min CGA CS Sup DS Mod I I Comments Supine to sit X Increased time, mild difficulty Sit to/from stand X EOB to no AD Toilet to no AD Transfers X Toilet transfer with no AD Ambulation X 150 feet x 2 with no AD Slow speed, short strides, WBOS, increased lateral sway Initial unsteadiness that improves with distance Patient reports she feels near baseline Stairs X 4 steps x 2 with bilateral railings Fast speed, grossly steady, reciprocal Seated Balance X Static: Good Dynamic: Good on toilet Standing Balance X X Static: Good no AD Dynamic: Good no AD Endurance: Good ; near baseline Patient Education: Instructed Patient in roles, goals, treatment plan: demonstrated good verbal understanding. Patient up in chair with call light in reach. DME: With Patients permission ordered no equipment via [employer] Order. If any questions contact [facility] DME Provider at [phone]. 6 Clicks Basic Mobility PT 07/08/24 Difficulty turning over in bed 4 Difficulty sitting down and standing up from a chair with arms 4 Difficulty moving from lying on back to sitting on the side of the bed 4 Help from another person moving to and from bed to a chair 4 Help from another person to walk in hospital room 4 Help from another person climbing 3-5 steps with a railing 4 PT 6 Clicks Score 24 6 Click Score Guidelines: 1 - Total = Requires total assistance, or cannot do at all. 2 - A lot = Requires a lot of help (maximun to moderate assistance) Can use assistive devices. 3 - A little = Requires a little help (supervision, minimal assistance) Can use assistive devices. 4 - None = Does not require any help and does the activity independently. Can use assistive devices. Progressive Mobility Protocol Score: Level 4 ASSESSMENT: Bryan Cruz is a 53 year old female admitted with syncopal episode and SOB and diagnosed with MS exacerbation. At time of evaluation patient was able to mobilize and ambulate near her baseline level despite slight weakness from the exacerbation. Therefore, Patient is functionally appropriate for discharge home once medically cleared. No further Physical Therapy services recommended at this time. PLAN OF CARE: Discharge acute PT this date The evaluation findings and treatment plan were discussed with the patient. The patient indicated understanding and agreement with the plan. Gia Quarles, PT, DPT NA = Not Assessed, I = Independent, MA = Modified Independent, Sup = Supervised, Set up = Physical Assistance for Set-up Only, Min = Minimal Assistance, Mod = Moderate Assistance, Max = Max assistance; Dep = Dependent; AROM = Active Range of Motion; P (more content not included)... [facility] [employer] [facility] 07-08-2024 Consult note Associated Order (s): IP OCCUPATIONAL THERAPY SERVICE REQUEST OCCUPATIONAL THERAPY INITIAL EVALUATION Patient seen from 904 to 924 on GC8E unit for 20 minutes for eval with PT 2/2 pt with full body pain and low tolerance. Reason for Admit: SOB x 1.5 weeks Diagnosis: MS exacerbation Precautions/Activity Order: moderate falls, full code, regular diet, activity as tolerated Procedures this admit: none Past Medical and Surgical History: PMH: Past Medical History: Diagnosis Date Current every day smoker 05/08/2022 Added secondary to documentation in Social History. History of cocaine abuse (HCC) 05/08/2022 Hyperlipidemia 05/08/2022 Morbid obesity with BMI of 40.0-44.9, adult 02/17/2020 Multiple sclerosis exacerbation (HCC) 03/30/2020 Vitamin D deficiency 07/19/2023 PSH: No past surgical history on file. SUBJECTIVE: Patient Subjective: every time I have a flare my body responds differently Patient Identified Goal(s): agreeable to therapy evaluation Home Living Situation Prior Functional Status: Independent Living independent with Activities of Daily Living Independent Ambulation without assistive device Independent with Instrumental Activities of Daily Living 2 fall last 6 months - working Assistance Available at Home: roommates at sober living house are helpful and can help PRN Patient lives in a multilevel sober house with 4 stairs to enter rail. (Been here x1 month) Full Bathroom on 3rd level. Bedroom on 3 level. Equipment available at home: no equipment OBJECTIVE: Patient Identification: patient verbalizing his/her name and date of . and patient's id band and date of . Risks and benefits of occupational therapy: Patient informed of risks and benefits of treatment Appearance: supine in bed on arrival, hospital gown, hep-locked IV Alertness: WFL Affect: WNL Cooperation/Behavior: Appropriate dialogue with therapist and Pleasant and cooperative Communication: WFL but tangential Pain: Pain ratin/10, Location: full body Pain Relief Interventions Implemented: RN aware and reports patient received medication according to time schedule Self Care: Assistance Level Dep Max Mod Min CG CS DS MA I Set-Up Comment Feeding x Meal tray Grooming/Hygiene x Washed hands standing at sink Bathing:UB x Simulated sponge bathing Bathing:LB x Simulated seated Dressing:UB x Doff/don gown seated Dressing: LB x Demo'd figure 4 positioning seated EOB Toileting x Voided seated on toilet, hygiene completed seated. Pt able to manage underwear over hips in standing Transfers/Bed Mobility: Assistance Level Dep Max Mod Min CG CS DS MA I Set-Up Comment Toilet Transfers x To/from toilet Bed Transfers x Sit to stand from EOB. Greater than household distance functional mobility to bathroom and in ortiz without AD, WBOS with lateral sway however pt reports ambulating at baseline level. Mild unsteadiness initially but improved with distance. Stand to sit in chair. Bed Mobility x Supine to sit EOB with HOB flat Patient seated in chair end of session with call light and phone within reach and all current needs met. Endurance for Self Care: Fair, mild SOB with activity however SpO2 WFL on RA during mobility Static Sitting Balance: WFL Dynamic Sitting Balance: WFL UE Motor: BUE AROM WFL, MMT grossly 4/5 throughout Vision/Perception: wears glasses at baseline however not present this admission; blurry vision at baseline Cognition: Orientation: Oriented to person, place, and date Follows Commands: WFL Attention: easily distracted during task Memory: WFL Problem Solving: WFL Safety/Judgement: WFL Sequencing: WFL Other Specialized Tests: None Patient/Family Education: Instructed patient in roles of therapy, OOBTC for 1 hour, encouraged ambulation while in house Patient up in chair with call light in reach. DME: With Patients permission ordered no equipment via [employer] Order. If any questions contact [facility] DME Provider at [phone]. 6 Clicks Daily Activity OT 07/08/24 Help from another person Eating meals 4 Help from another person taking care of personal grooming 4 Help from another person bathing 4 Help from another person putting on and taking off regular upper body clothing 4 Help from another person putting on and taking off regular lower body clothing 4 Help from another person toileting 4 OT 6 Clicks Score 24 6 Click Score Guidelines: 1 - Unable = Total/Dependent Assist 2 - A lot = Max/Moderate Assist 3 - A little = Minimum/Contact Guard Assist/Supervision 4 - Non = Modified [place]/Independent ASSESSMENT: Patient is functionally appropriate for discharge home once medically cleared. No further Occupational Therapy Services reccommended at this time. PLAN: Bryan Cruz will be d/c acute OT services able to discuss the evaluation findings and treatment plan with the patient/family. The patient/family did participate in the development of plan and goals. Shae Zuleta OTR/L NA = Not Assessed, I = Independent, MA = Modified Independent, Sup = Supervised, Set up = Physical Assistance for Set-up Only, Min = Minimal Assistance, Mod = Moderate Assistance, Max = Max assistance; Dep = Dependent; AROM = Active Range of Motion;PROM=Passive Range of Motion; MMT = Manual Muscle Test; UB = Upper Body; LB = Lower Body [facility] 07-08-2024 Note OCCUPATIONAL THERAPY INITIAL EVALUATION Patient seen from 904 to 924 on GC8E unit for 20 minutes for eval with PT 2/2 pt with full body pain and low tolerance. Reason for Admit: SOB x 1.5 weeks Diagnosis: MS exacerbation Precautions/Activity Order: moderate falls, full code, regular diet, activity as tolerated Procedures this admit: none Past Medical and Surgical History: PMH: Past Medical History: Diagnosis Date Current every day smoker 05/08/2022 Added secondary to documentation in Social History. History of cocaine abuse (HCC) 05/08/2022 Hyperlipidemia 05/08/2022 Morbid obesity with BMI of 40.0-44.9, adult 02/17/2020 Multiple sclerosis exacerbation (HCC) 03/30/2020 Vitamin D deficiency 07/19/2023 PSH: No past surgical history on file. SUBJECTIVE: Patient Subjective: every time I have a flare my body responds differently Patient Identified Goal(s): agreeable to therapy evaluation Home Living Situation Prior Functional Status: Independent Living independent with Activities of Daily Living Independent Ambulation without assistive device Independent with Instrumental Activities of Daily Living 2 fall last 6 months - working Assistance Available at Home: roommates at sober living house are helpful and can help PRN Patient lives in a multilevel sober house with 4 stairs to enter rail. (Been here x1 month) Full Bathroom on 3rd level. Bedroom on 3 level. Equipment available at home: no equipment OBJECTIVE: Patient Identification: patient verbalizing his/her name and date of . and patient's id band and date of . Risks and benefits of occupational therapy: Patient informed of risks and benefits of treatment Appearance: supine in bed on arrival, hospital gown, hep-locked IV Alertness: WFL Affect: WNL Cooperation/Behavior: Appropriate dialogue with therapist and Pleasant and cooperative Communication: WFL but tangential Pain: Pain ratin/10, Location: full body Pain Relief Interventions Implemented: RN aware and reports patient received medication according to time schedule Self Care: Assistance Level Dep Max Mod Min CG CS DS MA I Set-Up Comment Feeding x Meal tray Grooming/Hygiene x Washed hands standing at sink Bathing:UB x Simulated sponge bathing Bathing:LB x Simulated seated Dressing:UB x Doff/don gown seated Dressing: LB x Demo'd figure 4 positioning seated EOB Toileting x Voided seated on toilet, hygiene completed seated. Pt able to manage underwear over hips in standing Transfers/Bed Mobility: Assistance Level Dep Max Mod Min CG CS DS MA I Set-Up Comment Toilet Transfers x To/from toilet Bed Transfers x Sit to stand from EOB. Greater than household distance functional mobility to bathroom and in ortiz without AD, WBOS with lateral sway however pt reports ambulating at baseline level. Mild unsteadiness initially but improved with distance. Stand to sit in chair. Bed Mobility x Supine to sit EOB with HOB flat Patient seated in chair end of session with call light and phone within reach and all current needs met. Endurance for Self Care: Fair, mild SOB with activity however SpO2 WFL on RA during mobility Static Sitting Balance: WFL Dynamic Sitting Balance: WFL UE Motor: BUE AROM WFL, MMT grossly 4/5 throughout Vision/Perception: wears glasses at baseline however not present this admission; blurry vision at baseline Cognition: Orientation: Oriented to person, place, and date Follows Commands: WFL Attention: easily distracted during task Memory: WFL Problem Solving: WFL Safety/Judgement: WFL Sequencing: WFL Other Specialized Tests: None Patient/Family Education: Instructed patient in roles of therapy, OOBTC for 1 hour, encouraged ambulation while in house Patient up in chair with call light in reach. DME: With Patients permission ordered no equipment via [employer] Order. If any questions contact [facility] DME Provider at [phone]. 6 Clicks Daily Activity OT 07/08/24 Help from another person Eating meals 4 Help from another person taking care of personal grooming 4 Help from another person bathing 4 Help from another person putting on and taking off regular upper body clothing 4 Help from another person putting on and taking off regular lower body clothing 4 Help from another person toileting 4 OT 6 Clicks Score 24 6 Click Score Guidelines: 1 - Unable = Total/Dependent Assist 2 - A lot = Max/Moderate Assist 3 - A little = Minimum/Contact Guard Assist/Supervision 4 - Non = Modified [place]/Independent ASSESSMENT: Patient is functionally appropriate for discharge home once medically cleared. No further Occupational Therapy Services reccommended at this time. PLAN: Bryan Cruz will be d/c acute OT services able to discuss the evaluation findings and treatment plan with the patient/family. The patient/family did participate in the development of plan and goals. Caitly (more content not included)... [facility] Note Transition of Care; Hand off Note Is admission screen complete? Yes Special/Social Considerations: NO Mobility: good Continence: WNL Radiology Testing: CTA CHEST PULMONARY EMBOLISM W/ Final Result CT HEAD W/O CONTRAST Final Result XR CHEST PA+LAT 2 VIEWS Final Result Code Status: Full Code AGE: [age] year old SEX: female WEIGHT: 96.6 kg Chief Complaint: Chief Complaint Patient presents with Shortness of breath Patient states that she began to notice her MS flaring up for the past week, since then has been having worsening body wide pain especially in diaphragm that is causing shortness of breath. Also admits to multiple falls this week Admitting Diagnosis: Clinical Impression Diagnosis Comment Dyspnea, unspecified type [R06.00] Multiple sclerosis exacerbation (HCC) [G35] Cardiac insufficiency (HCC) [I50.9] O2 requirement: no Oxygen Therapy: Oxygen Therapy O2 Device: Room air IV/LDA access: Peripheral IV Access: 07/07/24 1334 20 gauge Right Antecubital (Active) No Known Allergies Out of Reference Range ED Results Display - if a lab has no value displayed it is normal OR not it is not completed BASIC METABOLIC PANEL - Abnormal; Notable for the following components: Result Value Ref Range Potassium 7.8 (*) 3.5 - 5.0 mmol/L All other components within normal limits CBC WITH DIFFERENTIAL - Abnormal; Notable for the following components: Neutrophils 81.0 (*) 31.0 - 76.0 % Lymphocytes 8.5 (*) 24.0 - 44.0 % Lymphocytes # 0.72 (*) 1.00 - 4.80 K/uL All other components within normal limits MAGNESIUM - Normal HIGH SENSITIVITY CARDIAC TROPONIN I (HS-CTNI) SERIAL TESTING 0HR (BASELINE) - Normal Narrative: Elevated troponin can result from acute myocardial infarction (coronary etiology) or myocardial injury (non-coronary etiology) - always consider both. Interval test times for ruling out acute coronary syndrome (ACS) are 2 hours. All results are reported in whole numbers representing ng/L. Results obtained by different labs or methods are not comparable. For ruling out ACS, lab values are always used in conjunction with clinical risk assessment (e.g., HEART score*). Interpreting initial value in ruling out ACS Less than 5 ng/L - below lower limit of quantification - essentially rules out ACS if chest pain began more than 3 hours prior to test and assessed risk is low. 5 - 49 ng/L - indeterminate - consider repeat value in 2 hours depending on risk assessment. 50 ng/L or greater - concern for ACS or myocardial injury. Interpreting delta values in ruling out ACS. Always compare to initial value obtained: Absolute change (rise or fall) of less than 5 ng/L - essentially rules out ACS if assessed clinical risk is low. Absolute change (rise or fall) of 5 - 19 ng/L - indeterminate - consider another repeat value in 2 hours depending on assessed clinical risk. Absolute change (rise or fall) of 20 ng/L or greater - concern for ACS or myocardial injury. Any absolute value of 50 ng/L or greater - concern for ACS or myocardial injury. *When using hsTnI to calculate the HEART score, use the 99% Upper Reference Limit of 15 ng/L as the normal limit (i.e. <=15 ng/L = 0 points, 16-45 ng/L = 1 point, >45 ng/L = 2 points). Disposition Intermediate hsTnI values DO NOT mandate admission to a cardiology or telemetry unit. They need to be interpreted within the clinical context using provider judgement. COVID/INFLUENZA - Normal Narrative: Not Detected results are indicative of the absence of SARS-CoV-2 in the specimen submitted for testing. False negative results are possible based on the timing and quality of specimen submitted for testing. POTASSIUM, WHOLE BLOOD - Normal HIGH SENSITIVITY CARDIAC TROPONIN I (HS-CTNI) SERIAL TESTING 2HR - Normal Narrative: Elevated troponin can result from acute myocardial infarction (coronary etiology) or myocardial injury (non-coronary etiology) - always consider both. Interval test times for ruling out acute coronary syndrome (ACS) are 2 hours. All results are reported in whole numbers representing ng/L. Results obtained by different labs or methods are not comparable. For ruling out ACS, lab values are always used in conjunction with clinical risk assessment (e.g., HEART score*). Interpreting initial value in ruling out ACS Less than 5 ng/L - below lower limit of quantification - essentially rules out ACS if chest pain began more than 3 hours prior to test and assessed risk is low. 5 - 49 ng/L - indeterminate - consider repeat value in 2 hours depending on risk assessment. 50 ng/L or greater - concern for ACS or myocardial injury. Interpreting delta values in ruling out ACS. Always compare to initial value obtained: Absolute change (rise or fall) of less than 5 ng/L - essentially rules out ACS if assessed clinical risk is low. Absolute change (rise or fall) of 5 - 19 ng/L - indeterminate - consider another repeat value in 2 hours depending on assessed clinical risk. Absolute change (rise or fall) of 20 ng/L or greater - concern for ACS or myocardial injury. Any absolute value of 50 ng/L or greater - concern for ACS or myocardial injury. *When using hsTnI to calculate the HEART score, use the 99% Upper Reference Limit of 15 ng/L as the normal limit (i.e. <=15 ng/L = 0 points, 16-45 ng/L = 1 point, >45 ng/L = 2 points). Disposition Intermediate hsTnI values DO NOT mandate admission to a cardiology or telemetry unit. They need to be interpreted within the clinical context using provider judgement. NT PRO-BNP - Normal Narrative: Age(Years) Results (pg/mL) Interpretation All <300 Negative: Heart failure unlikely. <50 >/=300 - 50-75 >/=300 - >75 >/=300 - <50 >450 Positive: 50-75 >900 Heart failure likely. >75 >1800 COMPLETE BLOOD COUNT W/DIFF Narrative: The following orders were created for panel order COMPLETE BLOOD COUNT W/DIFF. Procedure Abnormality Status --------- ------ CBC WITH DIFFERENTIAL[[id number]] Abnormal Final result Please view results for these tests on the individual orders. Past Medical History: Diagnosis Date Current every day smoker 05/08/2022 Added secondary to documentation in Social History. History of cocaine abuse (HCC) 05/08/2022 Hyperlipidemia 05/08/2022 Morbid obesity with BMI of 40.0-44.9, adult 02/17/2020 Multiple sclerosis exacerbation (HCC) 03/30/2020 Vitamin D deficiency 07/19/2023 Medications lidocaine (LIDODERM) 4 % patch (2 Patches Transdermal Patch Applied 07/07/24 4535) baclofen (LIORESAL) 20 MG tablet (has no administration in time range) baclofen (LIORESAL) tablet (has no administration in time range) sertraline (ZOLOFT) tablet (200 mg Oral Given 07/07/241716) famotidine (PEPCID) tablet (20 mg Oral Given 07/07/241716) DULoxetine (CYMBALTA) capsule (has no administration in time range) atorvastatin (LIPITOR) tablet (20 mg Oral Given 07/07/241716) acetaminophen (TYLENOL) tablet (has no administration in time range) enoxaparin (LOVENOX) 40 MG/0.4ML injection 40 mg (40 mg Subcutaneous Given 07/07/24 1717) ipratropium-albuterol (DUO-NEB) 0.5-2.5 (3) MG/3ML nebulizer solution (3 mL Nebulization Given 07/07/24 1223) iohexol (OMNIPAQUE) 350 MG/ML injection (100 mL Intravenous Push Given 07/07/24 1552) methocarbamol (ROBAXIN) tablet (750 mg Oral Given 07/07/24 1455) pregabalin (LYRICA) capsule (300 mg Oral Given 07/07/24 1705) No active isolations Vitals Recorded in This Encounter 07/07/2024 1120 07/07/2024 1121 07/07/2024 1620 07/07/2024 1729 07/07/2024 1930 BP: -- -- 138/58 -- 123/59 Pulse: -- -- 62 -- 61 Resp: -- -- 16 -- 20 Temp: 97.5 F (36.4 C) -- -- -- -- SpO2: -- -- 100 % -- 100 % Weight: -- -- -- 213 lb (96.6 kg) -- Height: -- -- -- 4' 11 (1.499 m) -- Pain Score: -- 6 -- -- -- Any significant change from prior assessment: No Any new symptoms No Please contact MARILU SMITH [facility] 07-07-2024 Emergency department Note Transition of Care; Hand off Note Is admission screen complete? Yes Special/Social Considerations: NO Mobility: good Continence: WNL Radiology Testing: CTA CHEST PULMONARY EMBOLISM W/ Final Result CT HEAD W/O CONTRAST Final Result XR CHEST PA+LAT 2 VIEWS Final Result Code Status: Full Code AGE: [age] year old SEX: female WEIGHT: 96.6 kg Chief Complaint: Chief Complaint Patient presents with Shortness of breath Patient states that she began to notice her MS flaring up for the past week, since then has been having worsening body wide pain especially in diaphragm that is causing shortness of breath. Also admits to multiple falls this week Admitting Diagnosis: Clinical Impression Diagnosis Comment Dyspnea, unspecified type [R06.00] Multiple sclerosis exacerbation (HCC) [G35] Cardiac insufficiency (HCC) [I50.9] O2 requirement: no Oxygen Therapy: Oxygen Therapy O2 Device: Room air IV/LDA access: Peripheral IV Access: 07/07/24 1334 20 gauge Right Antecubital (Active) No Known Allergies Out of Reference Range ED Results Display - if a lab has no value displayed it is normal OR not it is not completed BASIC METABOLIC PANEL - Abnormal; Notable for the following components: Result Value Ref Range Potassium 7.8 (*) 3.5 - 5.0 mmol/L All other components within normal limits CBC WITH DIFFERENTIAL - Abnormal; Notable for the following components: Neutrophils 81.0 (*) 31.0 - 76.0 % Lymphocytes 8.5 (*) 24.0 - 44.0 % Lymphocytes # 0.72 (*) 1.00 - 4.80 K/uL All other components within normal limits MAGNESIUM - Normal HIGH SENSITIVITY CARDIAC TROPONIN I (HS-CTNI) SERIAL TESTING 0HR (BASELINE) - Normal Narrative: Elevated troponin can result from acute myocardial infarction (coronary etiology) or myocardial injury (non-coronary etiology) - always consider both. Interval test times for ruling out acute coronary syndrome (ACS) are 2 hours. All results are reported in whole numbers representing ng/L. Results obtained by different labs or methods are not comparable. For ruling out ACS, lab values are always used in conjunction with clinical risk assessment (e.g., HEART score*). Interpreting initial value in ruling out ACS Less than 5 ng/L - below lower limit of quantification - essentially rules out ACS if chest pain began more than 3 hours prior to test and assessed risk is low. 5 - 49 ng/L - indeterminate - consider repeat value in 2 hours depending on risk assessment. 50 ng/L or greater - concern for ACS or myocardial injury. Interpreting delta values in ruling out ACS. Always compare to initial value obtained: Absolute change (rise or fall) of less than 5 ng/L - essentially rules out ACS if assessed clinical risk is low. Absolute change (rise or fall) of 5 - 19 ng/L - indeterminate - consider another repeat value in 2 hours depending on assessed clinical risk. Absolute change (rise or fall) of 20 ng/L or greater - concern for ACS or myocardial injury. Any absolute value of 50 ng/L or greater - concern for ACS or myocardial injury. *When using hsTnI to calculate the HEART score, use the 99% Upper Reference Limit of 15 ng/L as the normal limit (i.e. <=15 ng/L = 0 points, 16-45 ng/L = 1 point, >45 ng/L = 2 points). Disposition Intermediate hsTnI values DO NOT mandate admission to a cardiology or telemetry unit. They need to be interpreted within the clinical context using provider judgement. COVID/INFLUENZA - Normal Narrative: Not Detected results are indicative of the absence of SARS-CoV-2 in the specimen submitted for testing. False negative results are possible based on the timing and quality of specimen submitted for testing. POTASSIUM, WHOLE BLOOD - Normal HIGH SENSITIVITY CARDIAC TROPONIN I (HS-CTNI) SERIAL TESTING 2HR - Normal Narrative: Elevated troponin can result from acute myocardial infarction (coronary etiology) or myocardial injury (non-coronary etiology) - always consider both. Interval test times for ruling out acute coronary syndrome (ACS) are 2 hours. All results are reported in whole numbers representing ng/L. Results obtained by different labs or methods are not comparable. For ruling out ACS, lab values are always used in conjunction with clinical risk assessment (e.g., HEART score*). Interpreting initial value in ruling out ACS Less than 5 ng/L - below lower limit of quantification - essentially rules out ACS if chest pain began more than 3 hours prior to test and assessed risk is low. 5 - 49 ng/L - indeterminate - consider repeat value in 2 hours depending on risk assessment. 50 ng/L or greater - concern for ACS or myocardial injury. Interpreting delta values in ruling out ACS. Always compare to initial value obtained: Absolute change (rise or fall) of less than 5 ng/L - essentially rules out ACS if assessed clinical risk is low. Absolute change (rise or fall) of 5 - 19 ng/L - indeterminate - consider another repeat value in 2 hours depending on assessed clinical risk. Absolute change (rise or fall) of 20 ng/L or greater - concern for ACS or myocardial injury. Any absolute value of 50 ng/L or greater - concern for ACS or myocardial injury. *When using hsTnI to calculate the HEART score, use the 99% Upper Reference Limit of 15 ng/L as the normal limit (i.e. <=15 ng/L = 0 points, 16-45 ng/L = 1 point, >45 ng/L = 2 points). Disposition Intermediate hsTnI values DO NOT mandate admission to a cardiology or telemetry unit. They need to be interpreted within the clinical context using provider judgement. NT PRO-BNP - Normal Narrative: Age(Years) Results (pg/mL) Interpretation All <300 Negative: Heart failure unlikely. <50 >/=300 - </=450 [place]: Results Indeterminate 50-75 >/=300 - </=900 Consider other reasons for NT Pro-BNP >75 >/=300 - </=1800 elevation. <50 >450 Positive: 50-75 >900 Heart failure likely. >75 >1800 COMPLETE BLOOD COUNT W/DIFF Narrative: The following orders were created for panel order COMPLETE BLOOD COUNT W/DIFF. Procedure Abnormality Status --------- ------ CBC WITH DIFFERENTIAL[[id number]] Abnormal Final result Please view results for these tests on the individual orders. Past Medical History: Diagnosis Date Current every day smoker 05/08/2022 Added secondary to documentation in Social History. History of cocaine abuse (HCC) 05/08/2022 Hyperlipidemia 05/08/2022 Morbid obesity with BMI of 40.0-44.9, adult 02/17/2020 Multiple sclerosis exacerbation (HCC) 03/30/2020 Vitamin D deficiency 07/19/2023 Medications lidocaine (LIDODERM) 4 % patch (2 Patches Transdermal Patch Applied 07/07/24 4995) baclofen (LIORESAL) 20 MG tablet (has no administration in time range) baclofen (LIORESAL) tablet (has no administration in time range) sertraline (ZOLOFT) tablet (200 mg Oral Given 07/07/241716) famotidine (PEPCID) tablet (20 mg Oral Given 07/07/241716) DULoxetine (CYMBALTA) capsule (has no administration in time range) atorvastatin (LIPITOR) tablet (20 mg Oral Given 07/07/241716) acetaminophen (TYLENOL) tablet (has no administration in time range) enoxaparin (LOVENOX) 40 MG/0.4ML injection 40 mg (40 mg Subcutaneous Given 07/07/241716) ipratropium-albuterol (DUO-NEB) 0.5-2.5 (3) MG/3ML nebulizer solution (3 mL Nebulization Given 07/07/24 1223) iohexol (OMNIPAQUE) 350 MG/ML injection (100 mL Intravenous Push Given 07/07/24 1552) methocarbamol (ROBAXIN) tablet (750 mg Oral Given 07/07/24 1455) pregabalin (LYRICA) capsule (300 mg Oral Given 07/07/24 1705) No active isolations Vitals Recorded in This Encounter 07/07/2024 1120 07/07/2024 1121 07/07/2024 1620 07/07/2024 1729 07/07/2024 1930 BP: -- -- 138/58 -- 123/59 Pulse: -- -- 62 -- 61 Resp: -- -- 16 -- 20 Temp: 97.5 F (36.4 C) -- -- -- -- SpO2: -- -- 100 % -- 100 % Weight: -- -- -- 213 lb (96.6 kg) -- Height: -- -- -- 4' 11 (1.499 m) -- Pain Score: -- 6 -- -- -- Any significant change from prior assessment: No Any new symptoms No Please contact MARILU SMITH notified of critical POTASIUM value of 7.8. Hard copy of results given to . MUKUND Egan . Pt to edxr, ct. Pt given gown, encouraged to change. ES documented in this encounter [facility] 07-07-2024 Evaluation + Plan note Associated Problem(s): Multiple sclerosis exacerbation (HCC) Continue zeposia at discharge, pt ask facility to bring in for dispense. Will review presentation with neurology as well as indication for repeat imaging. Given stable MR C spine findings within 2 months Consider ophthalmology eval given blurred vision. [facility] 07-07-2024 Evaluation + Plan note Associated Problem(s): Vitamin D deficiency Check levels, offer vitamin D replacement supplementation [facility] 07-07-2024 Evaluation + Plan note Associated Problem(s): Hyperlipidemia Continue lipitor 20mg [facility] 07-07-2024 Evaluation + Plan note Associated Problem(s): History of cocaine abuse (HCC) In remission [facility] 07-07-2024 Evaluation + Plan note Associated Problem(s): Current every day smoker Encourage cessation, offer nicotine replacement [facility] 07-07-2024 Evaluation + Plan note Associated Problem(s): Morbid obesity with BMI of 40.0-44.9, adult Encourage lifestyle changes, pt stopped cocaine use in remission. Encourage tobacco cessation [facility] 07-07-2024 Evaluation + Plan note Associated Problem(s): Shortness of breath Obtain echocardiogram given findings on CTA. F/u NT-pro BNP. [facility] 07-07-2024 Hospital Note Formatting of t his note might be different from the original. 53 year old female with PMHx of MS relapsing/remitting, on zeposia, chronic headaches, crack/cocaine use (90 days sober), depression, fibroids, stroke, presenting from sober living facility to ED via EMS for evaluation of syncopal episode and SOB at rest that has been ongoing for appx 1.5 weeks. Ongoing dyspnea with cardiac insufficiency. Pt feels her symptoms are similar to prior MS flare. Prior cord signal noted demyelination at C2-3 that was unchanged in 06/04/24 In ED no acute overnight heart failure findings on examination. CTA did not reveal a PE but did show cardiac insufficiency. Cardiac enzymes normal VSS, COVID-flu negative [facility] 07-07-2024 History and physical note Hospital Medicine H&P Subjective HPI: 53 year old female with PMHx of MS relapsing/remitting, on zeposia, chronic headaches, crack/cocaine use (90 days sober), depression, fibroids, stroke, presenting from sober living facility to ED via EMS for evaluation of syncopal episode and SOB at rest that has been ongoing for appx 1.5 weeks. Ongoing dyspnea with cardiac insufficiency. Pt feels her symptoms are similar to prior MS flare. Prior cord signal noted demyelination at C2-3 that was unchanged in 06/04/24 In ED no acute overnight heart failure findings on examination. CTA did not reveal a PE but did show cardiac insufficiency. Cardiac enzymes normal VSS, COVID-flu negative Pt reports her symptoms started as fatigue and pain over 1 week ago. States that she noticed worsening blurred vision. Reports that she usually has improvement in her symptoms but noticed pain became more generalized. Pain is worse in back of her head/neck area. Unsure if she had a fall, but reports that is what her sober living facility noted. Only missed one dose prior to arrival of her MS drug zeposia. She reports worsening dyspnea and shortness of breath. No mucous production. No leg swelling. No orthopnea reported. Reports not lying flat at baseline to sleep. Last flare was about 5-6 months ago. Past Medical History: Diagnosis Date Current every day smoker 05/08/2022 Added secondary to documentation in Social History. History of cocaine abuse (HCC) 05/08/2022 Hyperlipidemia 05/08/2022 Morbid obesity with BMI of 40.0-44.9, adult 02/17/2020 Multiple sclerosis exacerbation (HCC) 03/30/2020 Vitamin D deficiency 07/19/2023 No past surgical history on file. Patient has no known allergies. No family history on file. Social History Tobacco Use Smoking status: Not on file Smokeless tobacco: Not on file Substance Use Topics Alcohol use: Not on file Objective Physical Exam: BP 138/58 Pulse 62 Temp 97.5 F (36.4 C) Resp 16 SpO2 100% Gen pleasant, resting in ED HENT NCAT supple no LAD. Mild proptosis. CV RRR nls 1s2 lungs CTA b/L, diminished Abd soft NTND Ext no edema Neuro DELVALLE spontanoeusly. Strength 4/5 in both upper and lower extremities. Data select: Labwork is notable for normal CBC panel, covid/flu negative, K 3.8, HsTn 5 Order for tomorrow: Labwork BMP, CBC , vitamin D Assessment & Plan Multiple sclerosis exacerbation (HCC) Continue zeposia at discharge, pt ask facility to bring in for dispense. Will review presentation with neurology as well as indication for repeat imaging. Given stable MR C spine findings within 2 months Consider ophthalmology eval given blurred vision. Morbid obesity with BMI of 40.0-44.9, adult Encourage lifestyle changes, pt stopped cocaine use in remission. Encourage tobacco cessation History of cocaine abuse (HCC) In remission Current every day smoker Encourage cessation, offer nicotine replacement Vitamin D deficiency Check levels, offer vitamin D replacement supplementation Hyperlipidemia Continue lipitor 20mg Shortness of breath Obtain echocardiogram given findings on CTA. F/u NT-pro BNP. DVT PPX: lovenox CODE: No Order DISPO: return to sober living home. Yousif Gillette MD [facility] 07-07-2024 History and physical note Hospital Medicine H&P Subjective HPI: 53 year old female with PMHx of MS relapsing/remitting, on zeposia, chronic headaches, crack/cocaine use (90 days sober), depression, fibroids, stroke, presenting from sober living facility to ED via EMS for evaluation of syncopal episode and SOB at rest that has been ongoing for appx 1.5 weeks. Ongoing dyspnea with cardiac insufficiency. Pt feels her symptoms are similar to prior MS flare. Prior cord signal noted demyelination at C2-3 that was unchanged in 06/04/24 In ED no acute overnight heart failure findings on examination. CTA did not reveal a PE but did show cardiac insufficiency. Cardiac enzymes normal VSS, COVID-flu negative Pt reports her symptoms started as fatigue and pain over 1 week ago. States that she noticed worsening blurred vision. Reports that she usually has improvement in her symptoms but noticed pain became more generalized. Pain is worse in back of her head/neck area. Unsure if she had a fall, but reports that is what her sober living facility noted. Only missed one dose prior to arrival of her MS drug zeposia. She reports worsening dyspnea and shortness of breath. No mucous production. No leg swelling. No orthopnea reported. Reports not lying flat at baseline to sleep. Last flare was about 5-6 months ago. Past Medical History: Diagnosis Date Current every day smoker 05/08/2022 Added secondary to documentation in Social History. History of cocaine abuse (HCC) 05/08/2022 Hyperlipidemia 05/08/2022 Morbid obesity with BMI of 40.0-44.9, adult 02/17/2020 Multiple sclerosis exacerbation (HCC) 03/30/2020 Vitamin D deficiency 07/19/2023 No past surgical history on file. Patient has no known allergies. No family history on file. Social History Tobacco Use Smoking status: Not on file Smokeless tobacco: Not on file Substance Use Topics Alcohol use: Not on file Objective Physical Exam: BP 138/58 Pulse 62 Temp 97.5 F (36.4 C) Resp 16 SpO2 100% Gen pleasant, resting in ED HENT NCAT supple no LAD. Mild proptosis. CV RRR nls 1s2 lungs CTA b/L, diminished Abd soft NTND Ext no edema Neuro DELVALLE spontanoeusly. Strength 4/5 in both upper and lower extremities. Data select: Labwork is notable for normal CBC panel, covid/flu negative, K 3.8, HsTn 5 Order for tomorrow: Labwork BMP, CBC , vitamin D Assessment & Plan Multiple sclerosis exacerbation (HCC) Continue zeposia at discharge, pt ask facility to bring in for dispense. Will review presentation with neurology as well as indication for repeat imaging. Given stable MR C spine findings within 2 months Consider ophthalmology eval given blurred vision. Morbid obesity with BMI of 40.0-44.9, adult Encourage lifestyle changes, pt stopped cocaine use in remission. Encourage tobacco cessation History of cocaine abuse (HCC) In remission Current every day smoker Encourage cessation, offer nicotine replacement Vitamin D deficiency Check levels, offer vitamin D replacement supplementation Hyperlipidemia Continue lipitor 20mg Shortness of breath Obtain echocardiogram given findings on CTA. F/u NT-pro BNP. DVT PPX: lovenox CODE: No Order DISPO: return to sober living home. Yousif Gillette MD documented in this encounter [facility] 07-07-2024 Emergency department Note notified of critical POTASIUM value of 7.8. Hard copy of results given to . MUKUND Egan . [facility] 07-07-2024 Emergency department Note Pt to edxr, ct. Pt given gown, encouraged to change. ES [facility] Work Phone: 07-04-2024 Note HNO ID: [id number] Author: MAGALI GREGORY [facility] Service: ? Author Type: ? Type: Progress Notes Filed: 07/09/2024 06:49 Note Text: [facility] Refill Assessment Medication(s): Zeposia Patient's current medication list and adherence status to current therapy were reviewed by Specialty Pharmacy clinical pharmacist to identify any new drug interactions or non-compliance to therapy. Therapy continues to be appropriate for disease, patient response, and medical condition. Verification of therapeutic benefit and effectiveness with current therapy was completed. Adverse events, barriers in adherence, and side effects were assessed and addressed if applicable. Will proceed with refill with no changes in therapy - patient progressing towards achieving therapeutic goals based on medication-specific laboratory parameters, disease state markers and outcomes. Office/provider notes have been reviewed prior to dispensing the medication. Crm Functional Analyst Assessment Patient confirmed: Yes Med/dose confirmed: Yes Missed doses: No Estimated days supply on hand: 7 Next cycle/dose due: 07/09/24 Copay amount: 0 Delivery method: FedEx Signature required: Waived on patient request Delivery address: [address] [place] [address] Delivery date: 07/11/24 Questions or concerns for the pharmacist?: No Did you have any side effects believed to be related to this medication, that resulted in hospitalization?: No Current Outpatient Medications on File Prior to Visit Medication Sig ozanimod (ZEPOSIA) 0.92 mg capsule Take 1 capsule by mouth once daily. pregabalin (LYRICA) 300 mg capsule Take 1 capsule by mouth two times a day for 30 days. keTORolac (TORADOL) 10 mg tablet Take 1 tablet by mouth every 6 hours as needed. Do not use while taking NSAIDs including ibuprofen [DISCONTINUED] ergocalciferol 50,000 unit capsule (VITAMIN D2, DRISDOL) Take 1 capsule by mouth one time a week for 12 doses. (Patient not taking: Reported on 06/05/2024) DULoxetine (CYMBALTA) 30 mg capsule Take 1 capsule by mouth daily at bedtime for 7 days, THEN 2 capsules daily at bedtime. lidocaine (LIDODERM) 5 % Apply 1 Patch as directed once daily. to affected area. Remove patch after 12 hours. hydrocortisone 0.5 % cream APPLY TO AFFECTED AREA TWO TIMES A DAY FOR 7 DAYS. atorvastatin (LIPITOR) 20 mg tablet Take 1 tablet by mouth once daily. baclofen 20 mg tablet Take 1 tablet (20mg) by mouth in the morning and afternoon and 2 tablets (40 mg) by mouth in the evening famotidine (PEPCID) 20 mg tablet Take 20 mg by mouth two times a day. acetaminophen (TYLENOL EXTRA STRENGTH) 500 mg tablet Take 2 tablets by mouth three times a day as needed for pain. lidocaine HCL 4 % ptmd Apply 1 Patch to affected area once daily. No current facility-administered medications on file prior to visit. [facility] [place] CLINICAL ASSESSMENT - NEUROLOGY V7: Assessment to use: Refill Assessment of injection issues or necrosis at injection sites: N/A Screening for infection: Yes Drug specific assessments, as appropriate: Yes Current medication list (including drug interaction assessment): Yes Experience of adverse reactions to the medication: Yes Date of influenza vaccination reminder: 05/01/2024 Date of most recent vaccination assessment: 05/01/2024 Treatment Plan Information: Zeposia (Ozanimod) Sphingosine 1 Phosphate (S1P) Receptor Modulator Take whole with or without food Multiple sclerosis, relapsing: Oral: Initial: 0.23 mg once daily on days 1 through 4; then 0.46 mg once daily on days 5 through 7; maintenance dose: 0.92 mg once daily starting on day 8. Est. Tx Plan Start Date: No information available Estimated Start Date Info: No information available Est. Estimated Treatment Duration: No information available Freda Small CPhT [facility], Neurology, Cardiology, AND Infectious Disease P: [phone] F: [phone] Magali Gregory [facility] 07-02-2024 Telephone encounter Note The following approved medication requests have been transmitted electronically. Requested Prescriptions Signed Prescriptions Disp Refills ozanimod (ZEPOSIA) 0.92 mg capsule 30 capsule 3 Sig: Take 1 capsule by mouth once daily. Authorizing Provider: RAYMOND KEMP APRN.CNP [facility] 07-02-2024 Miscellaneous Notes The following approved medication requests have been transmitted electronically. Requested Prescriptions Signed Prescriptions Disp Refills ozanimod (ZEPOSIA) 0.92 mg capsule 30 capsule 3 Sig: Take 1 capsule by mouth once daily. Authorizing Provider: RAYMOND KEMP APRN.CNP Next appt with you 07/17/2024 Requested Prescriptions Pending Prescriptions Disp Refills ozanimod (ZEPOSIA) 0.92 mg capsule 30 capsule 3 Sig: Take 1 capsule by mouth once daily. Obtain blood work for further refills. Thanks! Magali Gregory RPh documented in this encounter [facility] 07-02-2024 Telephone encounter Note Next appt with you 07/17/2024 Requested Prescriptions Pending Prescriptions Disp Refills ozanimod (ZEPOSIA) 0.92 mg capsule 30 capsule 3 Sig: Take 1 capsule by mouth once daily. Obtain blood work for further refills. Thanks! Magali Gregory RPh [facility] 06-30-2024 Telephone encounter Note 2nd attempt to reach patient, unable to leave voicemail, mailbox has not been set up. 2nd MyChart message sent. [facility] 06-30-2024 Miscellaneous Notes 2nd attempt to reach patient, unable to leave voicemail, mailbox has not been set up. 2nd MyChart message sent. documented in this encounter [facility] 06-30-2024 Telephone encounter Note PDMP website checked and validated. All prescriptions have been APPROPRIATELY filled. No suspicious activity was identified. 06/30/2024 by Raymond Kemp APRN.CNP The following approved medication requests have been transmitted electronically. Requested Prescriptions Signed Prescriptions Disp Refills pregabalin (LYRICA) 300 mg capsule 60 capsule 0 Sig: Take 1 capsule by mouth two times a day for 30 days. Authorizing Provider: RAYMOND KEMP APRN.CNP Agree with need for appt Raymond Kemp APRN.CNP June 30, 2024 8:38 AM [facility] 06-30-2024 Miscellaneous Notes PDMP website checked and validated. All prescriptions have been APPROPRIATELY filled. No suspicious activity was identified. 06/30/2024 by Raymond Kemp APRN.CNP The following approved medication requests have been transmitted electronically. Requested Prescriptions Signed Prescriptions Disp Refills pregabalin (LYRICA) 300 mg capsule 60 capsule 0 Sig: Take 1 capsule by mouth two times a day for 30 days. Authorizing Provider: RAYMOND KEMP APRN.CNP Agree with need for appt Raymond Kemp APRN.CNP June 30, 2024 8:38 AM -Pt calling in to office. Pt identified by name and date. -Pt states she called to request a refill on her Lyrica and an appt with her NEUR provider. -States will take her last Lyrica tablet tomorrow. Would like a refill sent to the [facility] in [place]. Order pended. -States would like an appt with NEUR provider. States is having new/worsening symptoms r/t her MS DX. -States the middle finger on her RT hand will no longer open independently. States has to push on this finger to open it. -States has been having pretty constant HAs for the last 2 weeks. States these are generalized/up to 7/10/feels like she has a drill in her head. States these HAs are accompanied by blurred vision and spots or flashing in her eyes at times. Pt denies a HX of migraines. -Pt denies unilateral weakness/difficulty ambulating/facial droop/difficulty speaking/other concerning symptoms. -States has been taking Tylenol with some ROS. States did have a Toradol prescription, but states that is gone now. -ER precautions reviewed in detail with Pt. States she is aware and will not hesitate to go to the ER with any new/worsening symptoms. -Offered to send PT to NEUR scheduling. Pt would like message sent to provider first for input. documented in this encounter [facility] 06-30-2024 Telephone encounter Note -Pt calling in to office. Pt identified by name and date. -Pt states she called to request a refill on her Lyrica and an appt with her NEUR provider. -States will take her last Lyrica tablet tomorrow. Would like a refill sent to the [facility] in [place]. Order pended. -States would like an appt with NEUR provider. States is having new/worsening symptoms r/t her MS DX. -States the middle finger on her RT hand will no longer open independently. States has to push on this finger to open it. -States has been having pretty constant HAs for the last 2 weeks. States these are generalized/up to 7/10/feels like she has a drill in her head. States these HAs are accompanied by blurred vision and spots or flashing in her eyes at times. Pt denies a HX of migraines. -Pt denies unilateral weakness/difficulty ambulating/facial droop/difficulty speaking/other concerning symptoms. -States has been taking Tylenol with some ROS. States did have a Toradol prescription, but states that is gone now. -ER precautions reviewed in detail with Pt. States she is aware and will not hesitate to go to the ER with any new/worsening symptoms. -Offered to send PT to NEUR scheduling. Pt would like message sent to provider first for input. [facility] 06-17-2024 Note HNO ID: [id number] Author: FREDA HERNANDEZ APRN.SHAYLA Service: ? Author Type: Nurse Practitioner Type: Progress Notes Filed: 06/17/2024 10:53 Note Text: [facility] [place] Department of Benign Gynecology [facility] PATIENT NAME: Bryan Cruz PCP: Sandro Hinojosa MD DATE: 06/16/2024 Bryan Cruz is a 53 year old old female who presents for a follow up visit to discuss US and EMB results and plan of care HPI: Patient presented to office requesting hysterectomy. At last visit we Imaging was ordered and an EMB was performed. PATHOLOGY 06/05/2024 FINAL DIAGNOSIS A. Endometrium, biopsy: - Very scant benign endocervical and squamous cells, with rare superficial strip of glandular cells with ciliary/tubal metaplasia, see comment Diagnosis Comment There is no definitive endometrial tissue present for evaluation in this sampling. IMAGING 06/10/2024 Indication Postmenopausal bleeding. Fibroids Impression Enlarged retroverted fibroid uterus that measures 165 mm x 72 mm x 133 mm. The largest fibroids are described below. 1. Size 50 mm x 54 mm x 54 mm. Mean 52.8 mm. Vol 77.084 cm?. Anterior, Subserous 2. Size 50 mm x 43 mm x 61 mm. Mean 51.2 mm. Vol 67.993 cm?. Right lateral wall, Subserous 3. Size 38 mm x 27 mm x 39 mm. Mean 34.4 mm. Vol 20.508 cm?. Right lateral wall, Subserous 4. Size 39 mm x 45 mm x 36 mm. Mean 39.9 mm. Vol 32.717 cm?. Left lateral wall, Subserous Estimated uterine volume is 824 cc compared to 1187 cc on 08/02/2021. Endometrium measures 6.8 mm and contains fluid that outlines a 4 x 3 x 5 mm polyp. Both ovaries are visualized and appear normal. No adnexal masses were observed. There is no free fluid visualized in the peritoneal cavity. Recommendations Thickened endometrium with possible polyp. Consider endometrial sampling and hysteroscopic evaluation as clinically indicated. Uterus Uterus: Visualized Uterus position: retroverted Description of uterine malformations: ill defined Myometrium: heterogeneous Endometrium: fluid seen with possible polyp Uterus length 165 mm Uterus width 133 mm Uterus height 72 mm Uterus Vol 824.4 cm? Endometrial thickness single layer 5.0 mm Endom. th. single layer 4.0 mm Side: posterior Side: anterior Endometrial thickness, total 6.8 mm Fibroids: Fibroids identified Uterine fibroid D1 50 mm Uterine fibroid D2 54 mm Uterine fibroid D3 54 mm Uterine fibroid mean 52.8 mm Uterine fibroid vol 77.084 cm? Uterine fibroids findings: Anterior, Subserous Uterine fibroid D1 50 mm Uterine fibroid D2 43 mm Uterine fibroid D3 61 mm Uterine fibroid mean 51.2 mm Uterine fibroid vol 67.993 cm? Uterine fibroids findings: Right lateral wall, Subserous Uterine fibroid D1 38 mm Uterine fibroid D2 27 mm Uterine fibroid D3 39 mm Uterine fibroid mean 34.4 mm Uterine fibroid vol 20.508 cm? Uterine fibroids findings: Right lateral wall, Subserous Uterine fibroid D1 39 mm Uterine fibroid D2 45 mm Uterine fibroid D3 36 mm Uterine fibroid mean 39.9 mm Uterine fibroid vol 32.717 cm? Uterine fibroids findings: Left lateral wall, Subserous Polyps: Polyps identified Uterine polyp D1 4 mm Uterine polyp D2 3 mm Uterine polyp D3 5 mm Uterine polyp mean 4.0 mm Right Ovary Rt ovary: Visualized Left Ovary Lt ovary: Visualized Cul de Sac Visualized. no free fluid visualized Last visit 06/05/2024 CHIEF COMPLAINT: Bryan Cruz is a pleasant 53 year old female who presents with a history of FIBROIDS. Former patient of Dr. Montalvo. Was scheduled for hysterectomy but couldn't decide if she wanted that vs myomectomy. Ultimately surgery was cancelled due to lack of approval by insurance. She is back now requesting a hysterectomy. She also has PMB. Was referred in Summer by Dr. Malloy. Bryan Cruz reports being diagnosed with fibroids many years ago. Her most bothersome symptoms include PMB, pressure and pain. She reports her periods stopped age 50. Had an episode of bleeding less than a week ago Her pain is felt at these locations: pressure in pelvis, She does not miss work/school due to pain. She has not visited the Emergency Room for the pain. She does not desire future child bearing. She is currently sexually active. She has had the following work up thus far: EMB in 2021 IMAGING: No recent imaging She has had an endometrial biopsy. 08/25/2021 CONVERTED FINAL DIAGNOSIS Endometrium, biopsy - Limited sample of superficial inactive endometrium. - Squamous epithelium with no significant pathologic abnormality. Past Gynecologic History: Last pap cytology: 2023 NILM, HPV neg History of abnormal history No History of STI: No History of PID: No OB History T4 L4 SAB0 IAB1 Ectopic0 Multiple0 Live Births4 Gy (more content not included)... [facility] 06-17-2024 History of Present illness Narrative Images from the original note were not included. [facility] [place] Department of Benign Gynecology [facility] PATIENT NAME: Bryan Cruz PCP: Sandro Hinojosa MD DATE: 06/16/2024 Bryan Cruz is a 53 year old old female who presents for a follow up visit to discuss US and EMB results and plan of care HPI: Patient presented to office requesting hysterectomy. At last visit we Imaging was ordered and an EMB was performed. PATHOLOGY 06/05/2024 FINAL DIAGNOSIS A. Endometrium, biopsy: - Very scant benign endocervical and squamous cells, with rare superficial strip of glandular cells with ciliary/tubal metaplasia, see comment Diagnosis Comment There is no definitive endometrial tissue present for evaluation in this sampling. IMAGING 06/10/2024 Indication Postmenopausal bleeding. Fibroids Impression Enlarged retroverted fibroid uterus that measures 165 mm x 72 mm x 133 mm. The largest fibroids are described below. 1. Size 50 mm x 54 mm x 54 mm. Mean 52.8 mm. Vol 77.084 cm . Anterior, Subserous 2. Size 50 mm x 43 mm x 61 mm. Mean 51.2 mm. Vol 67.993 cm . Right lateral wall, Subserous 3. Size 38 mm x 27 mm x 39 mm. Mean 34.4 mm. Vol 20.508 cm . Right lateral wall, Subserous 4. Size 39 mm x 45 mm x 36 mm. Mean 39.9 mm. Vol 32.717 cm . Left lateral wall, Subserous Estimated uterine volume is 824 cc compared to 1187 cc on 08/02/2021. Endometrium measures 6.8 mm and contains fluid that outlines a 4 x 3 x 5 mm polyp. Both ovaries are visualized and appear normal. No adnexal masses were observed. There is no free fluid visualized in the peritoneal cavity. Recommendations Thickened endometrium with possible polyp. Consider endometrial sampling and hysteroscopic evaluation as clinically indicated. Uterus Uterus: Visualized Uterus position: retroverted Description of uterine malformations: ill defined Myometrium: heterogeneous Endometrium: fluid seen with possible polyp Uterus length 165 mm Uterus width 133 mm Uterus height 72 mm Uterus Vol 824.4 cm Endometrial thickness single layer 5.0 mm Endom. th. single layer 4.0 mm Side: posterior Side: anterior Endometrial thickness, total 6.8 mm Fibroids: Fibroids identified Uterine fibroid D1 50 mm Uterine fibroid D2 54 mm Uterine fibroid D3 54 mm Uterine fibroid mean 52.8 mm Uterine fibroid vol 77.084 cm Uterine fibroids findings: Anterior, Subserous Uterine fibroid D1 50 mm Uterine fibroid D2 43 mm Uterine fibroid D3 61 mm Uterine fibroid mean 51.2 mm Uterine fibroid vol 67.993 cm Uterine fibroids findings: Right lateral wall, Subserous Uterine fibroid D1 38 mm Uterine fibroid D2 27 mm Uterine fibroid D3 39 mm Uterine fibroid mean 34.4 mm Uterine fibroid vol 20.508 cm Uterine fibroids findings: Right lateral wall, Subserous Uterine fibroid D1 39 mm Uterine fibroid D2 45 mm Uterine fibroid D3 36 mm Uterine fibroid mean 39.9 mm Uterine fibroid vol 32.717 cm Uterine fibroids findings: Left lateral wall, Subserous Polyps: Polyps identified Uterine polyp D1 4 mm Uterine polyp D2 3 mm Uterine polyp D3 5 mm Uterine polyp mean 4.0 mm Right Ovary Rt ovary: Visualized Left Ovary Lt ovary: Visualized Cul de Sac Visualized. no free fluid visualized Last visit 06/05/2024 CHIEF COMPLAINT: Bryan Cruz is a pleasant 53 year old female who presents with a history of FIBROIDS. Former patient of Dr. Montalvo. Was scheduled for hysterectomy but couldn't decide if she wanted that vs myomectomy. Ultimately surgery was cancelled due to lack of approval by insurance. She is back now requesting a hysterectomy. She also has PMB. Was referred in Summer by Dr. Malloy. Bryan Cruz reports being diagnosed with fibroids many years ago. Her most bothersome symptoms include PMB, pressure and pain. She reports her periods stopped age 50. Had an episode of bleeding less than a week ago Her pain is felt at these locations: pressure in pelvis, She does not miss work/school due to pain. She has not visited the Emergency Room for the pain. She does not desire future child bearing. She is currently sexually active. She has had the following work up thus far: EMB in 2021 IMAGING: No recent imaging She has had an endometrial biopsy. 08/25/2021 CONVERTED FINAL DIAGNOSIS Endometrium, biopsy - Limited sample of superficial inactive endometrium. - Squamous epithelium with no significant pathologic abnormality. 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 She is obese. Neurological: Mental Status: She is alert. Psychiatric: Mood and Affect: Mood normal. Behavior: Behavior normal. Thought Content: Thought content normal. Judgment: Judgment normal. Vitals and nursing note reviewed. ASSESSMENT AND PLAN: Encounter Diagnosis ICD-10-CM 1. Fibroids D21.9 keTORolac (TORADOL) 10 mg tablet 2. Prediabetes R73.03 HEMOGLOBIN A1C Reviewed US and pahtology report. Not enough tissue for examination. Once patient scheduled with surgeon, I will reach out to determine if they would like to perform a hysteroscopy or If I should refer to Dr. Del Toro for this prior to Hysterectomy. She is requesting Toradol for pain. Reports that Ibuprofen gives her hives but not Toradol. Reviewed this is not a med to be used meterman for pain control. Schedule with [facility] surgeon for hysterectomy consult. I will reach out to surgeon once scheduled to discuss emb and their desired plan. EMB completed 06/05/2024- VERY SCANT SPECIMEN Co-testing up to date CBC 05/08/2024 Hgb 10.3 TSH 08/30/2023 1.810 HA1C 08/30/2023 6.3- reordered today Freda Hernandez APRN.CNP June 17, 2024 10:34 AM documented in this encounter [facility] 06-10-2024 Note HNO ID: [id number] Author: DEJON DEL TORO MD Service: ? 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 Encounter Diagnosis ICD-10-CM 1. PMB (postmenopausal bleeding) N95.0 Please see report under imaging tab. Dejon Del Toro MD June 10, 2024 4:[address] 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 Encounter Diagnosis ICD-10-CM 1. PMB (postmenopausal bleeding) N95.0 Please see report under imaging tab. Dejon Del Toro MD June 10, 2024 4:23 PM documented in this encounter [facility] 06-05-2024 Note Freda Hernandez APRN.CNP 06/05/2024 2:30 PM ENDOMETRIAL BIOPSY PROCEDURE Date/Time: 06/05/2024 2:27 PM Performed by: Freda Hernandez APRN.CNP Authorized by: Freda Hernandez APRN.CNP Diagnosis: (N95.0) PMB (postmenopausal bleeding) Patient's last menstrual period was 04/28/2020 (within years). Informed Consent Consent Obtained: Written [place] Protocol A moment to CARE was completed. SIGN IN Personnel directly involved with the procedure wore the appropriate PPE. Patient/Surrogate Stated/Verified: Patient name, Date of , Relevant allergies and Intended procedure TIME OUT Intended patient and procedure match the source document(s). Consent documented and matches the intended procedure. Relevant labs, photos, and/or imaging studies have been reviewed. Pre-Procedure Details: Site Prep: Povidone Iodine (Betadine) Analgesia (see MAR): Medications: None Procedure Details: External Genitalia: Normal in appearance without lesions Vagina: Normal in appearance without lesions Procedure: endometrial biopsy with Pipelle A bivalve speculum was placed in the vagina. Cervix cleaned and prepped A paracervical block was not performed. noAn intracervical block was not performed. The cervix was not dilated. Uterus sounded. Uterus sound depth (cm): 10 Findings: Pelvic exam was not performed. Patient Education: side effects discussed with patient Follow-up includes calling patient with results, follow-up appointment. Indication: Post menopausal bleeding Post-Procedure Details: Patient tolerated the procedure well with no immediate complications Estimated Blood Loss: None Specimens Sent: EMB SIGN OUT All instruments, equipment, possible retained foreign bodies accounted for. Post-procedure follow-up management communicated and Plan of Care Visit completed when applicable [facility] 06-05-2024 Note There is no definiti ve endometrial tissue present for evaluation in this sampling. [facility] Comment on above: Order Comment: Speci men Type: TISSUE SPECIMENOrdering Facility: [facility] Address: [address] [place] [address] Performed By: #### S ####[facility] LABCLIA [id number] [address] [place] 06-05-2024 Note HNO ID: [id number] Author: KYLER GRAY MA Service: ? Author Type: [employer] Worker Type: Progress Notes Filed: 06/05/2024 14:30 Note Text: Exam chaperoned by Kyler Gray MA June 05, 2024 2:[address] [facility] 06-05-2024 History of Present illness Narrative Exam chaperoned by Kyler Gray MA June 05, 2024 2:10 PM Associated Order(s): ENDO BIOPSY Post-Procedure Diagnose(s): PMB (postmenopausal bleeding) Images from the original note were not included. [facility] [place] Department of Benign Gynecology [facility] PATIENT NAME: Bryan Cruz PCP: Sandro Hinojosa MD DATE: 06/05/2024 Chief Complaint CC: FIBROIDS History of Present Illness: REFERRING PHYSICIAN: Sal Malloy CHIEF COMPLAINT: Bryan Cruz is a pleasant 53 year old female who presents with a history of FIBROIDS. Former patient of Dr. Montalvo. Was scheduled for hysterectomy but couldn't decide if she wanted that vs myomectomy. Ultimately surgery was cancelled due to lack of approval by insurance. She is back now requesting a hysterectomy. She also has PMB. Was referred in Summer by Dr. Malloy. Bryan Cruz reports being diagnosed with fibroids many years ago. Her most bothersome symptoms include PMB, pressure and pain. She reports her periods stopped age 50. Had an episode of bleeding less than a week ago Her pain is felt at these locations: pressure in pelvis, She does not miss work/school due to pain. She has not visited the Emergency Room for the pain. She does not desire future child bearing. She is currently sexually active. She has had the following work up thus far: EMB in 2021 IMAGING: No recent imaging She has had an endometrial biopsy. 08/25/2021 CONVERTED FINAL DIAGNOSIS Endometrium, biopsy - Limited sample of superficial inactive endometrium. - Squamous epithelium with no significant pathologic abnormality. Past Gynecologic History: Last pap cytology: 2023 NILM, HPV neg History of abnormal history No History of STI: No History of PID: No Past Obstetrical History: Vaginal delivery: 2 Section: 2 Ectopic: 0 Miscarriage: 0 EAB: 1 Past Medical History: PAST MEDICAL HISTORY Diagnosis Date Cocaine use reports relapsed in 2019 but now sober again Depression Fibroid Multiple sclerosis (HCC) Smoking Stroke (cerebrum) (HCC) 2016 had trouble walking Past Surgical History: PAST SURGICAL HISTORY Procedure Laterality Date >=3 Family History: FAMILY HISTORY Problem Relation Age of Onset Hypertension Mother Diabetes Mother COPD Father Hypertension Sister Diabetes Sister Social History: Social History Tobacco Use Smoking status: Some Days Types: Cigarettes Smokeless tobacco: Never Tobacco comments: Not daily; 3-4 per day when she does smoke. Vaping Use Vaping status: Never Used Substance Use Topics Alcohol use: Not Currently Drug use: Yes Types: Cocaine, Marijuana Comment: Marijuana as needed. history of cocaine states relapsed in 2019 none since then Current Outpatient Medications Medication Sig pregabalin (LYRICA) 300 mg capsule Take 1 capsule by mouth two times a day for 30 days. DULoxetine (CYMBALTA) 30 mg capsule Take 1 capsule by mouth daily at bedtime for 7 days, THEN 2 capsules daily at bedtime. lidocaine (LIDODERM) 5 % Apply 1 Patch as directed once daily. to affected area. Remove patch after 12 hours. ozanimod (ZEPOSIA) 0.92 mg capsule Take 1 capsule by mouth once daily. Obtain blood work for further refills. hydrocortisone 0.5 % cream APPLY TO AFFECTED AREA TWO TIMES A DAY FOR 7 DAYS. atorvastatin (LIPITOR) 20 mg tablet Take 1 tablet by mouth once daily. baclofen 20 mg tablet Take 1 tablet (20mg) by mouth in the morning and afternoon and 2 tablets (40 mg) by mouth in the evening famotidine (PEPCID) 20 mg tablet Take 20 mg by mouth two times a day. acetaminophen (TYLENOL EXTRA STRENGTH) 500 mg tablet Take 2 tablets by mouth three times a day as needed for pain. lidocaine HCL 4 % ptmd Apply 1 Patch to affected area once daily. DULoxetine (CYMBALTA) 60 mg capsule Take 1 capsule by mouth daily at bedtime. Patient should start on October 04, 2023. ergocalciferol 50,000 unit capsule (VITAMIN D2, DRISDOL) Take 1 capsule by mouth one time a week. No current facility-administered medications for this visit. Allergies As of Date: 06/05/2024 Allergen Noted Reaction NSAIDS (NON-STEROIDAL ANTI-INFLAM*12/08/2019 Hives TRAMADOL 12/23/2019 Hives Fully Assessed 06/05/2024 PHYSICAL EXAMINATION: Vital Signs: 06/05/24 1346 BP: 128/64 Weight: 100.3 kg (221 lb 1.9 oz) Height: 152.4 cm (5') Body mass index is 43.18 kg/m . Physical Exam Constitutional: Appearance: Normal appearance. She is obese. Neurological: Mental Status: She is alert. Psychiatric: Mood and Affect: Mood normal. Behavior: Behavior normal. Thought Content: Thought content normal. Judgment: Judgment normal. Vitals and nursing note reviewed. ASSESSMENT AND PLAN: Bryan Cruz is a 53 year old female who presents with a fibroid uterus. Encounter Diagnosis ICD-10-CM 1. PMB (postmenopausal bleeding) N95.0 PELVIC US [facility] EMB completed today in office- VERY SCANT SPECIMEN Co-testing up to date CBC 05/08/2024 Hgb 10.3 TSH 08/30/2023 1.810 HA1C 08/30/2023 6.3 WHI US ordered to assess size of uterus and fibroids Follow up after US to discuss results Freda Hernandez APRN.CNP June 05, 2024 2:00 PM Medical Decision Making: Problems: Moderate: 1+ chronic illnesses with change Data: Unique test result(s) reviewed: 3+ Unique test(s) ordered: 1 Medical Decision Making Level: 4 - Moderate ENDOMETRIAL BIOPSY PROCEDURE Date/Time: 06/05/2024 2:27 PM Performed by: Freda Hernandez APRN.COMPENSATION CONSULTING MANAGER Authorized by: Freda Hernandez APRN.CNP Diagnosis: (N95.0) PMB (postmenopausal bleeding) Patient's last menstrual period was 04/28/2020 (within years). Informed Consent Consent Obtained: Written [place] Protocol A moment to CARE was completed. SIGN IN Personnel directly involved with the procedure wore the appropriate PPE. Patient/Surrogate Stated/Verified: Patient name, Date of , Relevant allergies and Intended procedure TIME OUT Intended patient and procedure match the source document(s). Consent documented and matches the intended procedure. Relevant labs, photos, and/or imaging studies have been reviewed. Pre-Procedure Details: Site Prep: Povidone Iodine (Betadine) Analgesia (see MAR): Medications: None Procedure Details: External Genitalia: Normal in appearance without lesions Vagina: Normal in appearance without lesions Procedure: endometrial biopsy with Pipelle A bivalve speculum was placed in the vagina. Cervix cleaned and prepped A paracervical block was not performed. noAn intracervical block was not performed. The cervix was not dilated. Uterus sounded. Uterus sound depth (cm): 10 Findings: Pelvic exam was not performed. Patient Education: side effects discussed with patient Follow-up includes calling patient with results, follow-up appointment. Indication: Post menopausal bleeding Post-Procedure Details: Patient tolerated the procedure well with no immediate complications Estimated Blood Loss: None Specimens Sent: EMB SIGN OUT All instruments, equipment, possible retained foreign bodies accounted for. Post-procedure follow-up management communicated and Plan of Care Visit completed when applicable documented in this encounter [facility] 06-05-2024 Note HNO ID: [id number] Author: FREDA HERNANDEZ APRN.CNP Service: ? Author Type: Nurse Practitioner Type: Progress Notes Filed: 06/05/2024 14:30 Note Text: [facility] [place] Department of Benign Gynecology [facility] PATIENT NAME: Bryan Cruz PCP: Sandro Hinojosa MD DATE: 06/05/2024 Chief Complaint CC: FIBROIDS History of Present Illness: REFERRING PHYSICIAN: Sal Malloy CHIEF COMPLAINT: Bryan Cruz is a pleasant 53 year old female who presents with a history of FIBROIDS. Former patient of Dr. Montalvo. Was scheduled for hysterectomy but couldn't decide if she wanted that vs myomectomy. Ultimately surgery was cancelled due to lack of approval by insurance. She is back now requesting a hysterectomy. She also has PMB. Was referred in Summer by Dr. Malloy. Bryan Cruz reports being diagnosed with fibroids many years ago. Her most bothersome symptoms include PMB, pressure and pain. She reports her periods stopped age 50. Had an episode of bleeding less than a week ago Her pain is felt at these locations: pressure in pelvis, She does not miss work/school due to pain. She has not visited the Emergency Room for the pain. She does not desire future child bearing. She is currently sexually active. She has had the following work up thus far: EMB in 2021 IMAGING: No recent imaging She has had an endometrial biopsy. 08/25/2021 CONVERTED FINAL DIAGNOSIS Endometrium, biopsy - Limited sample of superficial inactive endometrium. - Squamous epithelium with no significant pathologic abnormality. Past Gynecologic History: Last pap cytology: 2023 NILM, HPV neg History of abnormal history No History of STI: No History of PID: No Past Obstetrical History: Vaginal delivery: 2 Section: 2 Ectopic: 0 Miscarriage: 0 EAB: 1 Past Medical History: PAST MEDICAL HISTORY Diagnosis Date Cocaine use reports relapsed in 2019 but now sober again Depression Fibroid Multiple sclerosis (HCC) Smoking Stroke (cerebrum) (HCC) 2016 had trouble walking Past Surgical History: PAST SURGICAL HISTORY Procedure Laterality Date >=3 Family History: FAMILY HISTORY Problem Relation Age of Onset Hypertension Mother Diabetes Mother COPD Father Hypertension Sister Diabetes Sister Social History: Social History Tobacco Use Smoking status: Some Days Types: Cigarettes Smokeless tobacco: Never Tobacco comments: Not daily; 3-4 per day when she does smoke. Vaping Use Vaping status: Never Used Substance Use Topics Alcohol use: Not Currently Drug use: Yes Types: Cocaine, Marijuana Comment: Marijuana as needed. history of cocaine states relapsed in 2019 none since then Current Outpatient Medications Medication Sig pregabalin (LYRICA) 300 mg capsule Take 1 capsule by mouth two times a day for 30 days. DULoxetine (CYMBALTA) 30 mg capsule Take 1 capsule by mouth daily at bedtime for 7 days, THEN 2 capsules daily at bedtime. lidocaine (LIDODERM) 5 % Apply 1 Patch as directed once daily. to affected area. Remove patch after 12 hours. ozanimod (ZEPOSIA) 0.92 mg capsule Take 1 capsule by mouth once daily. Obtain blood work for further refills. hydrocortisone 0.5 % cream APPLY TO AFFECTED AREA TWO TIMES A DAY FOR 7 DAYS. atorvastatin (LIPITOR) 20 mg tablet Take 1 tablet by mouth once daily. baclofen 20 mg tablet Take 1 tablet (20mg) by mouth in the morning and afternoon and 2 tablets (40 mg) by mouth in the evening famotidine (PEPCID) 20 mg tablet Take 20 mg by mouth two times a day. acetaminophen (TYLENOL EXTRA STRENGTH) 500 mg tablet Take 2 tablets by mouth three times a day as needed for pain. lidocaine HCL 4 % ptmd Apply 1 Patch to affected area once daily. DULoxetine (CYMBALTA) 60 mg capsule Take 1 capsule by mouth daily at bedtime. Patient should start on October 04, 2023. ergocalciferol 50,000 unit capsule (VITAMIN D2, DRISDOL) Take 1 capsule by mouth one time a week. No current facility-administered medications for this visit. Allergies As of Date: 06/05/2024 Allergen Noted Reaction NSAIDS (NON-STEROIDAL ANTI-INFLAM*12/08/2019 Hives TRAMADOL 12/23/2019 Hives Fully Assessed 06/05/2024 PHYSICAL EXAMINATION: Vital Signs: 06/05/24 1346 BP: 128/64 Weight: 100.3 kg (221 lb 1.9 oz) Height: 152.4 cm (5') Body mass index is 43.18 kg/m?. Physical Exam Constitutional: Appearance: Normal appearance. She is obese. Neurological: Mental Status: She is alert. Psychiatric: Mood and Affect: Mood normal. Behavior: Behavior normal. Thought Content: Thought content normal. Judgment: Judgment normal. Vitals and nursing note reviewed. ASSESSMENT AND PLAN: Bryan Cruz is a 53 year old female who presents with a fibroid uterus. Encounter Diagnosis ICD-10-CM 1. PMB (postmenopausal bleeding) (more content not included)... [facility] 06-04-2024 Note HNO ID: [id number] Author: MICHI GOMEZ RT(R) Service: ? Author Type: Technologist Type: Progress Notes Filed: 06/04/2024 09:21 Note Text: Radiology Service Progress Note DATE OF SERVICE: June 04, 2024 TIME: 9:20 AM PATIENT IDENTITY VERIFICATION COMPLETED USING TWO (2) STANDARD IDENTIFIERS: Name and Date of confirmed by patient verbally. FALL SCREENING: Has the patient had 2 falls in the last year or 1 fall with injury or currently using an Ambulatory Assistive Device (Walker, Cane, Wheelchair, Crutches, etc.)? No PATIENT GENDER DATA: Female. status: : No status: NO. PATIENT RELEVANT IMPLANT DATA REVIEWED: Yes PATIENT PRESENTS WITH AN IMPLANTABLE OR ATTACHED SPOT REMOVER: No ALLERGIES: Reviewed and unchanged CONTRAST ALLERGY: NO. EXAM: MRI - CONTRAST TYPE: GROUP II PERIPHERAL IV DATA: Ambulatory: A peripheral IV was started in the Right antecubital site with a Angio cath: 24 gauge. RADIOLOGY DEPARTMENT: MR; Exam(s) Completed: Spine: Cervical spine SIGNATURE: RT Krystal(R) PATIENT NAME: Bryan Cruz DATE: June 04, 2024 TIME: 9:[address] [facility] 06-04-2024 History of Present illness Narrative Radiology Service Progress Note DATE OF SERVICE: June 04, 2024 TIME: 9:20 AM PATIENT IDENTITY VERIFICATION COMPLETED USING TWO (2) STANDARD IDENTIFIERS: Name and Date of confirmed by patient verbally. FALL SCREENING: Has the patient had 2 falls in the last year or 1 fall with injury or currently using an Ambulatory Assistive Device (Walker, Cane, Wheelchair, Crutches, etc.)? No PATIENT GENDER DATA: Female. status: : No status: NO. PATIENT RELEVANT IMPLANT DATA REVIEWED: Yes PATIENT PRESENTS WITH AN IMPLANTABLE OR ATTACHED SPOT REMOVER: No ALLERGIES: Reviewed and unchanged CONTRAST ALLERGY: NO. EXAM: MRI - CONTRAST TYPE: GROUP II PERIPHERAL IV DATA: Ambulatory: A peripheral IV was started in the Right antecubital site with a Angio cath: 24 gauge. RADIOLOGY DEPARTMENT: MR; Exam(s) Completed: Spine: Cervical spine SIGNATURE: RT Krystal(Frederic) PATIENT NAME: Bryan Cruz DATE: June 04, 2024 TIME: 9:20 AM documented in this encounter [facility] 06-03-2024 Telephone encounter Note PDMP website checked and validated. All prescriptions have been APPROPRIATELY filled. No suspicious activity was identified. 06/03/2024 by Raymond Kemp APRN.CNP The following approved medication requests have been transmitted electronically. Requested Prescriptions Signed Prescriptions Disp Refills pregabalin (LYRICA) 300 mg capsule 60 capsule 0 Sig: Take 1 capsule by mouth two times a day for 30 days. Authorizing Provider: RAYMOND KEMP APRN.CNP [facility] 06-03-2024 Miscellaneous Notes PDMP website checked and validated. All prescriptions have been APPROPRIATELY filled. No suspicious activity was identified. 06/03/2024 by Raymond Kemp, [employer] IMPREGNATOR.COMPENSATION CONSULTING MANAGER The following approved medication requests have been transmitted electronically. Requested Prescriptions Signed Prescriptions Disp Refills pregabalin (LYRICA) 300 mg capsule 60 capsule 0 Sig: Take 1 capsule by mouth two times a day for 30 days. Authorizing Provider: RAYMOND KEMP APRN.COMPENSATION CONSULTING MANAGER She is here visiting and needs meds to go to this pharmacy. Source : call from patient requesting refill. Delivery : e-script Requested Prescriptions Pending Prescriptions Disp Refills pregabalin (LYRICA) 300 mg capsule 60 capsule 3 Sig: Take 1 capsule by mouth two times a day for 30 days. DX : Patient last seen: 05/08/2024 Next Appointment : 08/14/2024 Maria A Walsh documented in this encounter [facility] 06-02-2024 Telephone encounter Note She is here visiting and needs meds to go to this pharmacy. Source : call from patient requesting refill. Delivery : e-script Requested Prescriptions Pending Prescriptions Disp Refills pregabalin (LYRICA) 300 mg capsule 60 capsule 3 Sig: Take 1 capsule by mouth two times a day for 30 days. DX : Patient last seen: 05/08/2024 Next Appointment : 08/14/2024 Maria A Walsh [facility] 05-26-2024 Note HNO ID: [id number] Author: MAGALI GREGORY RPh Service: ? Author Type: ? Type: Progress Notes Filed: 06/10/2024 15:18 Note Text: [facility] Specialty Refill Assessment Medication(s): Zeposia Patient's current medication list and adherence status to current therapy were reviewed by Specialty Pharmacy clinical pharmacist to identify any new drug interactions or non-compliance to therapy. Therapy continues to be appropriate for disease, patient response, and medical condition. Verification of therapeutic benefit and effectiveness with current therapy was completed. Adverse events, barriers in adherence, and side effects were assessed and addressed if applicable. Will proceed with refill with no changes in therapy - patient progressing towards achieving therapeutic goals based on medication-specific laboratory parameters, disease state markers and outcomes. Office/provider notes have been reviewed prior to dispensing the medication. Crm Functional Analyst Assessment Patient confirmed: Yes Med/dose confirmed: Yes Supplies needed: No supplies needed Missed doses: Yes Count of missed doses: 1 Reason for missed doses: by accident Estimated days supply on hand: 6 Next cycle/dose due: 06/11/24 Copay amount: 0 Payment confirmed: Yes Delivery method: FedEx Signature required: Waived on patient request Delivery address: [address] [place] [id number] Delivery date: 06/12/24 Questions or concerns for the pharmacist?: No Did you have any side effects believed to be related to this medication, that resulted in hospitalization?: No Current Outpatient Medications on File Prior to Visit Medication Sig [DISCONTINUED] ergocalciferol 50,000 unit capsule (VITAMIN D2, DRISDOL) Take 1 capsule by mouth one time a week for 12 doses. (Patient not taking: Reported on 06/05/2024) DULoxetine (CYMBALTA) 30 mg capsule Take 1 capsule by mouth daily at bedtime for 7 days, THEN 2 capsules daily at bedtime. lidocaine (LIDODERM) 5 % Apply 1 Patch as directed once daily. to affected area. Remove patch after 12 hours. ozanimod (ZEPOSIA) 0.92 mg capsule Take 1 capsule by mouth once daily. Obtain blood work for further refills. hydrocortisone 0.5 % cream APPLY TO AFFECTED AREA TWO TIMES A DAY FOR 7 DAYS. atorvastatin (LIPITOR) 20 mg tablet Take 1 tablet by mouth once daily. baclofen 20 mg tablet Take 1 tablet (20mg) by mouth in the morning and afternoon and 2 tablets (40 mg) by mouth in the evening famotidine (PEPCID) 20 mg tablet Take 20 mg by mouth two times a day. acetaminophen (TYLENOL EXTRA STRENGTH) 500 mg tablet Take 2 tablets by mouth three times a day as needed for pain. lidocaine HCL 4 % ptmd Apply 1 Patch to affected area once daily. No current facility-administered medications on file prior to visit. [facility] [place] CLINICAL ASSESSMENT - NEUROLOGY V7: Assessment to use: Refill Assessment of injection issues or necrosis at injection sites: N/A Screening for infection: Yes Drug specific assessments, as appropriate: Yes Current medication list (including drug interaction assessment): Yes Experience of adverse reactions to the medication: Yes Date of influenza vaccination reminder: 05/01/2024 Date of most recent vaccination assessment: 05/01/2024 Treatment Plan Information: No information available Est. Tx Plan Start Date: No information available Estimated Start Date Info: No information available Est. Estimated Treatment Duration: No information available Judy Templeton (Intern) Magali Gregory, [facility] 05-26-2024 Note HNO ID: [id number] Author: ?, ?, ? Service: ? Author Type: ? Type: Progress Notes Filed: 06/05/2024 10:22 Note Text: Unable to reach patient for refill of Zeposia after 4 call attempts. Pt last refilled medication on 05/02/24. Will schedule future follow-up in 2 weeks from today's date. Office will be updated if future attempts are unsuccessful. Ermelinda Rothman CPhT (Dee) [facility] Neurology/Cardiology/Infections Disease [facility] P: F: [facility] 05-08-2024 Instructions Raymond Kemp APRN.CNP - 05/08/2024 10:08 AM EDT PLAN: - Continue Zeposia - MRI brain (as previously ordered) - Labs today: CBC diff, CMP, vitamin D, vitamin B12 - Try compression stockings - Prescription for rollator prescribed - Re-Schedule: - PCP (Sabrina Henderson) - TRAVEL REGISTERED NURSE PACU - Ortho (new consult placed today) - MRI brain and cervical spine - Optometry (new consult placed today) - Follow up in 3 months - Dr Rothman is in [place] Sunday and the rest at [place] - I am at [place] every day except documented in this encounter [facility] 05-08-2024 History of Present illness Narrative Images from the original note were not included. [facility] FOLLOWUP/ESTABLISHED PATIENT VISIT PRINCIPAL NEUROLOGIC DIAGNOSIS: Multiple Sclerosis DISEASE SUMMARY Date of onset: 03/2019 Date of diagnosis of MS: 03/2020 Disease course at onset: Relapsing-Remitting Current disease course: Relapsing-Remitting Previous disease therapies: - IVMP x 3 08/2023 (worsening LUE weakness and numbness) Current disease therapy: Zeposia (Jul 2020-Present) Most recent MRI brain: 08/28/23 ([facility]), 06/17/2021 Most recent MRI cervical spine: 08/28/23 ([facility]) Most recent MRI thoracic spine: 08/28/23 ([facility]) CSF: NA JCV serology result and date: 03/2020 negative Brief Disease History: - Mar 2019 bilateral leg weakness, urinary retention - Jul 2019 hyperacute onset L arm numbness and subtle weakness(dropping items) occurring when lifting a duffle bag - Jul 2019-February 2020 noticed balance difficulty CHIEF COMPLAINT: Follow-up on MS disease modifying therapy Usual treating team: Stephan/ Pedro The patient is unaccompanied. The patient was last seen 01/31/24, currently taking Zeposia. Since the patient's last visit the patient reports overall feeling stable. Issues with current therapy: Tolerating medication without side effects. INTERVAL HISTORY: Reports only maybe 2 missed doses of Zeposia Denies new symptoms Denies infection or illness In a sober house in [place] Has been sober about 7 months Doctor at the house has been filling the Lyrica Needs paper prescriptions moving forward as she is moving HH Right hand middle finger continues to lock but is locking longer than it use to Numbness to various parts of face that is unchanged Swelling to BLE in the last week Has headaches to back of left side of head and behind her eyes Does not wear her glasses and knows her prescription is bad Wonders if she needs bifocals Denies vision changes Neuro-QoL Functions (higher=better functioning) Flowsheet Row Office Visit from 07/19/[address] [facility] Office Visit from 04/18/[address] [facility] Office Visit from 10/27/[address] [facility] Upper Extremity Domain T Score 44.53 42.12 42.58 Lower Extremity Domain T Score 40.35 34.04 36.94 Cognitive Function Domain T Score 48.64 46.37 52.55 Positive Affect Well Being T Score -- -- -- Ability To Participate In Social Roles T Score 44.12 33.38 37.21 Satisfaction With Social Roles T Score 41.34 36.98 40.61 Neuro-QoL Symptoms (higher=worse symptoms) Flowsheet [facility] Office Visit from 07/19/[address] [facility] Office Visit from 04/18/[address] [facility] Office Visit from 10/27/[address] [facility] Sleep Domain T Score 57.7 61.86 67.68 Fatigue Domain T Score 56.21 58.38 50.45 Anxiety Domain T Score 48.72 48.87 56.09 Depression Domain T Score 46.25 47.97 55.43 Stigma Domain T Score 36.56 51.87 44.69 Emotional Behavior Dyscontrol T Score -- -- -- has a past medical history of Cocaine use, Depression, Fibroid, Multiple sclerosis ([facility]), Smoking, and Stroke (cerebrum) ([facility]). has a current medication list which includes the following prescription(s): zeposia, pregabalin, atorvastatin, baclofen, cyanocobalamin, acetaminophen, lidocaine hcl, iv contrast, WALKER ROLLATOR SEAT WITH 6 WHEELS - RED, duloxetine, biotene dry mouth oral rinse, docusate sodium, lidocaine, hydrocortisone, duloxetine, famotidine, nicotine, nicotine polacrilex, and ergocalciferol (vitamin d2). EXAM: BP 126/65 Pulse 64 Wt 96 kg (211 lb 10.3 oz) LMP 04/28/2020 (Within Years) BMI 41.33 kg/m MSPT Results Flowsheet [facility] Office Visit from 07/19/[address] [facility] Office Visit from 04/18/[address] [facility] Office Visit from 10/27/[address] [facility] Processing Speed Total Number Correct 45 46 40 Processing Speed Z score 0.42 0.51 -0.19 Dominant hand -- -- -- MDT Left Hand Time 24.54 27.5 -- MDT Right Hand Time 28.79 23.69 -- Walking Speed Test (25 feet) -- 8.56 -- General Appearance: well appearing, in no acute distress Mental status evaluation during the interview and examination showed normal level of consciousness, orientation, language, memory, praxis, and higher intellectual function Affect: Normal Extraocular movements: full, without EVIN Facial movements: Intact bilaterally Speech: normal Muscle tone: Right arm spasticity: None Right leg spasticity: None Left arm spasticity: None Left leg spasticity: None Muscle strength (#/5): Right Left Upper Extremity: Deltoids 5 5 Biceps 5 5 Triceps 5 5 Admeasurer 5 5 Dorsal interossei 5 5 Lower extremity: Iliopsoas 5 5- Quadriceps 5 5 Hamstrings 5 5 Tibialis anterior 5 5 Gastrocnemius 5 5 Coordination: Upper extremity dexterity and rapid movements: normal Finger-nose: very subtly impaired on left Heel-smith: no dysmetria; coordination intact Standing balance: mildly impaired Standard gait: antalgic. Assistive device: independent Tandem walking: Impaired RESULTS: CBC + Diff Component Value Date WBC 7.71 07/19/2023 HB 13.3 07/19/2023 HCT 43.7 07/19/2023 PLT 329 07/19/2023 ABSLYMPH 0.85 (L) 07/19/2023 Vitamin D Component Value Date VITD25 23.2 (L) 07/19/2023 CMP Component Value Date AST 15 08/30/2023 GLUC 93 08/30/2023 BUN 14 08/30/2023 CREAT 0.61 08/30/2023 NA 142 08/30/2023 K 4.2 08/30/2023 CHLOR 105 08/30/2023 ALT 25 08/30/2023 MRI Results: - MRI brain 08/28/23 ([facility]): There is no enhancement after contrast administration. There are foci of T2/FLAIR hyperintensity in the subcortical white matter and also in the right and left periventricular white matter involving the corpus collosum. 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 - MRI cervical spine 08/28/23 ([facility]): There is persistent area of demyelination in the left cord at C2-C3 unchanged since the prior study [07/2021]. There are no new areas of signal abnormality. There is no abnormal enhancement after contrast. There is multilevel spondylosis of the cervical spine. - MRI thoracic spine 08/28/23 ([facility]): Limited due to motion... the spinal cord is normal in course and caliber without areas of signal abnormality. There is no abnormal enhancement. There is no evidence of central canal narrowing. MRIs as above were reviewed by Dr. Ellen Rothman - no definite demyelinating lesion in the thoracic spine, no abnormal intraparenchymal gadolinium enhancement; T2 hyperintense lesion at C3, no Gde+; brain stable compared to 06/26, no abnormal gde+ ASSESSMENT: Bryan Cruz is a 53 year old female with Multiple Sclerosis. She is on Zeposia for DMT which she continues to tolerate well. She denies any new or worsening neurological symptoms. Unfortunately she has had difficulty keeping appointments due to transportation and detention house/restrictions. Will reschedule as below. She is to follow up in 3 months to ensure compliance, sooner if clinically indicated. Exam is:Stable, continue with current IMDT. The prescribed disease modifying therapy for MS is having the expected benefit in this patient based on imaging and clinical criteria, and will be continued or refilled, with planned follow-up at approximately 6-month intervals to continue to assess response on an ongoing basis. MRI of the brain and/or spinal cord is being ordered to evaluate for efficacy of multiple sclerosis (MS) disease modifying therapy. Disease activity in MS is often not immediately detectable on history or examination, but is sensitively identified on MRI. If identified, new or active MS lesions on MRI may represent suboptimal response to MS therapy, and would change medical management. PLAN: - Continue Zeposia - MRI brain (as previously ordered) - Labs today: CBC diff, CMP, vitamin D, vitamin B12, iron/tibc - Try compression stockings - Prescription for rollator prescribed - Re-Schedule: - PCP (Sabrina Henderson) - TRAVEL REGISTERED NURSE PACU - Ortho (new consult placed today) - MRI brain and cervical spine - Optometry (new consult placed today) - Follow up in 3 months Office Visit on 05/08/24 XR HAND GENERAL 3V PA/LAT/OBL RIGHT MRI CERVICAL SPINE WO/W IVCON COMPLETE BLOOD COUNT AND DIFFERENTIAL COMPREHENSIVE METABOLIC PANEL VITAMIN D 25 HYDROXY VITAMIN B12 IRON AND TIBC CONSULT PANEL TO ORTHOPAEDICS CONSULT TO OPTOMETRY Patient Health Education Discussed at Visit: Emotional Health/Wellness, Risks and Common side effects of MS medications, Stress management, Stretching, and Vitamin D supplementation Follow-up: In 3 months at [place] or Virtual Visit with [facility] I spent a total of 54 minutes on the date of the service which included preparing to see the patient, [id number] patient care, completing clinical documentation, obtaining and/or reviewing separately obtained history, performing a medically appropriate examination, counseling and educating the patient/family/caregiver, and ordering medications, tests, or procedures. Raymond Kemp APRN.CNP [facility] documented in this encounter [facility] 05-08-2024 Note HNO ID: [id number] Author: RAYMOND KEMP APRN.CNP Service: ? Author Type: Nurse Practitioner Type: Progress Notes Filed: 05/08/2024 14:11 Note Text: [facility] FOLLOWUP/ESTABLISHED PATIENT VISIT PRINCIPAL NEUROLOGIC DIAGNOSIS: Multiple Sclerosis DISEASE SUMMARY Date of onset: 03/2019 Date of diagnosis of MS: 03/2020 Disease course at onset: Relapsing-Remitting Current disease course: Relapsing-Remitting Previous disease therapies: - IVMP x 3 08/2023 (worsening LUE weakness and numbness) Current disease therapy: Zeposia (Jul 2020-Present) Most recent MRI brain: 08/28/23 ([facility]), 06/17/2021 Most recent MRI cervical spine: 08/28/23 ([facility]) Most recent MRI thoracic spine: 08/28/23 ([facility]) CSF: NA JCV serology result and date: 03/2020 negative Brief Disease History: - Mar 2019 bilateral leg weakness, urinary retention - Jul 2019 hyperacute onset L arm numbness and subtle weakness(dropping items) occurring when lifting a duffle bag - Jul 2019-February 2020 noticed balance difficulty CHIEF COMPLAINT: Follow-up on MS disease modifying therapy Usual treating team: Stephan/ Pedro The patient is unaccompanied. The patient was last seen 01/31/24, currently taking Zeposia. Since the patient's last visit the patient reports overall feeling stable. Issues with current therapy: Tolerating medication without side effects. INTERVAL HISTORY: Reports only maybe 2 missed doses of Zeposia Denies new symptoms Denies infection or illness In a sober house in [place] Has been sober about 7 months Doctor at the house has been filling the [place] Needs paper prescriptions moving forward as she is moving HH Right hand middle finger continues to lock but is locking longer than it use to Numbness to various parts of face that is unchanged Swelling to BLE in the last week Has headaches to back of left side of head and behind her eyes Does not wear her glasses and knows her prescription is bad Wonders if she needs bifocals Denies vision changes Neuro-QoL Functions (higher=better functioning) Flowsheet [facility] Office Visit from 07/19/[address] [facility] Office Visit from 04/18/[address] [facility] Office Visit from 10/27/[address] [facility] Upper Extremity Domain T Score 44.53 42.12 42.58 Lower Extremity Domain T Score 40.35 34.04 36.94 Cognitive Function Domain T Score 48.64 46.37 52.55 Positive Affect Well Being T Score -- -- -- Ability To Participate In Social Roles T Score 44.12 33.38 37.21 Satisfaction With Social Roles T Score 41.34 36.98 40.61 Neuro-QoL Symptoms (higher=worse symptoms) Flowsheet [facility] Office Visit from 07/19/[address] [facility] Office Visit from 04/18/[address] [facility] Office Visit from 10/27/[address] [facility] Sleep Domain T Score 57.7 61.86 67.68 Fatigue Domain T Score 56.21 58.38 50.45 Anxiety Domain T Score 48.72 48.87 56.09 Depression Domain T Score 46.25 47.97 55.43 Stigma Domain T Score 36.56 51.87 44.69 Emotional Behavior Dyscontrol T Score -- -- -- has a past medical history of Cocaine use, Depression, Fibroid, Multiple sclerosis ([facility]), Smoking, and Stroke (cerebrum) ([facility]). has a current medication list which includes the following prescription(s): zeposia, pregabalin, atorvastatin, baclofen, cyanocobalamin, acetaminophen, lidocaine hcl, iv contrast, WALKER ROLLATOR SEAT WITH 6 WHEELS - RED, duloxetine, biotene dry mouth oral rinse, docusate sodium, lidocaine, hydrocortisone, duloxetine, famotidine, nicotine, nicotine polacrilex, and ergocalciferol (vitamin d2). EXAM: BP 126/65 Pulse 64 Wt 96 kg (211 lb 10.3 oz) LMP 04/28/2020 (Within Years) BMI 41.33 kg/m? MSPT Results Flowsheet [facility] Office Visit from 07/19/[address] [facility] Office Visit from 04/18/[address] [facility] Office Visit from 10/27/[address] [facility] Processing Speed Total Number Correct 45 46 40 Processing Speed Z score 0.42 0.51 -0.19 Dominant hand -- -- -- MDT Left Hand Time 24.54 27.5 -- MDT Right Hand Time 28.79 23.69 -- Walking Speed Test (25 feet) -- 8.56 -- General Appearance: well appearing, in no acute distress Mental status evaluation during the interview and examination showed normal level of consciousness, orientation, language, memory, praxis, and higher intellectual function Affect: Normal Extraocular movements: full, without EVIN Facial movements: Intact bilaterally Speech: normal Muscle tone: Right arm spasticity: None Right leg spasticity: None Left arm spasticity: None Left leg spasticity: None Muscle strength (#/5): Right Left Upper Extremity: Deltoids 5 5 Biceps 5 5 Triceps 5 5 Admeasurer 5 5 Dorsal interossei 5 5 Lower extremity: Iliopsoas 5 5- Quadriceps 5 5 Hamstrings 5 5 Tibialis anterior 5 5 Gastrocnemius 5 5 Coordination: Upper extremity dexterity and rapid movements: normal Finger-nose: very subtly impaired on left Heel-smith: no dysmetria; coordination intact Standing balance: mildly imp (more content not included)... [facility] 04-09-2024 Note HNO ID: [id number] Author: MAGALI GREGORY benny Service: ? Author Type: ? Type: Progress Notes Filed: 05/01/2024 16:18 Note Text: [facility] Specialty Refill Assessment Medication(s): Zeposia Patient's current medication list and adherence status to current therapy were reviewed by Specialty Pharmacy clinical pharmacist to identify any new drug interactions or non-compliance to therapy. Therapy continues to be appropriate for disease, patient response, and medical condition. Verification of therapeutic benefit and effectiveness with current therapy was completed. Adverse events, barriers in adherence, and side effects were assessed and addressed if applicable. Will proceed with refill with no changes in therapy - patient progressing towards achieving therapeutic goals based on medication-specific laboratory parameters, disease state markers and outcomes. Office/provider notes have been reviewed prior to dispensing the medication. Crm Functional Analyst Assessment Patient confirmed: Yes Med/dose confirmed: Yes Missed doses: No Estimated days supply on hand: 5 Next cycle/dose due: 05/02/24 Copay amount: 0 Delivery method: FedEx Signature required: Waived on patient request Delivery address: [address] [place] [id number] Delivery date: 05/05/24 Questions or concerns for the pharmacist?: No Did you have any side effects believed to be related to this medication, that resulted in hospitalization?: No Current Outpatient Medications on File Prior to Visit Medication Sig ozanimod (ZEPOSIA) 0.92 mg capsule Take 1 capsule by mouth once daily. Obtain blood work for further refills. pregabalin (LYRICA) 300 mg capsule Take 1 capsule by mouth two times a day for 120 days. hydrocortisone 0.5 % cream APPLY TO AFFECTED AREA TWO TIMES A DAY FOR 7 DAYS. atorvastatin (LIPITOR) 20 mg tablet Take 1 tablet by mouth once daily. baclofen 20 mg tablet Take 1 tablet (20mg) by mouth in the morning and afternoon and 2 tablets (40 mg) by mouth in the evening cyanocobalamin (VITAMIN B-12) 1,000 mcg tab Take 1 tablet by mouth once daily. DULoxetine (CYMBALTA) 60 mg capsule Take 1 capsule by mouth daily at bedtime. Patient should start on October 04, 2023. famotidine (PEPCID) 20 mg tablet Take 20 mg by mouth two times a day. nicotine (NICODERM) 14 mg/24 hr Apply 1 Patch as directed every 24 hours. nicotine polacrilex (NICORETTE) 2 mg gum Take 1 Each by mouth every hour as needed. Max 20 pieces in 1 day. ergocalciferol 50,000 unit capsule (VITAMIN D2, DRISDOL) Take 1 capsule by mouth one time a week. saliva substitute combo no.9 (BIOTENE DRY MOUTH ORAL RINSE) mwsh Use 15 mL as instructed three times a day as needed. lidocaine (LIDODERM) 5 % Apply 1 Patch as directed once daily. to affected area. Remove patch after 12 hours. acetaminophen (TYLENOL EXTRA STRENGTH) 500 mg tablet Take 2 tablets by mouth three times a day as needed for pain. lidocaine HCL 4 % ptmd Apply 1 Patch to affected area once daily. No current facility-administered medications on file prior to visit. [facility] [place] CLINICAL ASSESSMENT - NEUROLOGY V7: Assessment to use: Refill Assessment of injection issues or necrosis at injection sites: N/A Screening for infection: Yes Drug specific assessments, as appropriate: Yes Current medication list (including drug interaction assessment): Yes Experience of adverse reactions to the medication: Yes Date of influenza vaccination reminder: 05/23/2023 Date of most recent vaccination assessment: 05/23/2023 Treatment Plan Information: No information available Est. Tx Plan Start Date: No information available Estimated Start Date Info: No information available Est. Estimated Treatment Duration: No information available Branden Barragan CPhT Neurology, Cardiology AND Infectious Disease [facility] Magali Gregory [facility] 04-09-2024 Note HNO ID: [id number] Author: ?, ?, ? Service: ? Author Type: ? Type: Progress Notes Filed: 05/01/2024 11:39 Note Text: Unable to reach patient for refill of Zeposia after 5 call attempts. Pt last refilled medication on 03/19/24. Will schedule future follow-up in 2 weeks from today's date. Office will be updated if future attempts are unsuccessful. Judy Templeton (Intern) [facility] 03-13-2024 Note HNO ID: [id number] Author: PAULO COREY RPh Service: ? Author Type: ? Type: Progress Notes Filed: 03/17/2024 17:59 Note Text: [facility] Refill Assessment Medication(s): Zeposia Patient's current medication list and adherence status to current therapy were reviewed by Specialty Pharmacy clinical pharmacist to identify any new drug interactions or non-compliance to therapy. Therapy continues to be appropriate for disease, patient response, and medical condition. Verification of therapeutic benefit and effectiveness with current therapy was completed. Adverse events, barriers in adherence, and side effects were assessed and addressed if applicable. Will proceed with refill with no changes in therapy - patient progressing towards achieving therapeutic goals based on medication-specific laboratory parameters, disease state markers and outcomes. Pauol Corey, PharmD Pharmacist, [facility] Specialty [employer] Assessment Patient confirmed: Yes Med/dose confirmed: Yes Supplies needed: No supplies needed Missed doses: Yes Count of missed doses: 1 Reason for missed doses: by accident Estimated days supply on hand: 8 Next cycle/dose due: 03/18/24 Copay amount: 0 Payment confirmed: Yes Delivery method: FedEx Signature required: Waived on patient request Delivery address: [address] [address] Delivery date: 03/19/24 Questions or concerns for the pharmacist?: No Did you have any side effects believed to be related to this medication, that resulted in hospitalization?: No Current Outpatient Medications on File Prior to Visit Medication Sig ozanimod (ZEPOSIA) 0.92 mg capsule Take 1 capsule by mouth once daily. Obtain blood work for further refills. pregabalin (LYRICA) 300 mg capsule Take 1 capsule by mouth two times a day for 120 days. hydrocortisone 0.5 % cream APPLY TO AFFECTED AREA TWO TIMES A DAY FOR 7 DAYS. atorvastatin (LIPITOR) 20 mg tablet Take 1 tablet by mouth once daily. baclofen 20 mg tablet Take 1 tablet (20mg) by mouth in the morning and afternoon and 2 tablets (40 mg) by mouth in the evening saliva substitute combo no.9 (BIOTENE DRY MOUTH ORAL RINSE) mwsh Use 15 mL as instructed two times a day as needed (dry mouth). cyanocobalamin (VITAMIN B-12) 1,000 mcg tab Take 1 tablet by mouth once daily. DULoxetine (CYMBALTA) 60 mg capsule Take 1 capsule by mouth daily at bedtime. Patient should start on October 04, 2023. famotidine (PEPCID) 20 mg tablet Take 20 mg by mouth two times a day. nicotine (NICODERM) 14 mg/24 hr Apply 1 Patch as directed every 24 hours. nicotine polacrilex (NICORETTE) 2 mg gum Take 1 Each by mouth every hour as needed. Max 20 pieces in 1 day. ergocalciferol 50,000 unit capsule (VITAMIN D2, DRISDOL) Take 1 capsule by mouth one time a week. saliva substitute combo no.9 (BIOTENE DRY MOUTH ORAL RINSE) mwsh Use 15 mL as instructed three times a day as needed. lidocaine (LIDODERM) 5 % Apply 1 Patch as directed once daily. to affected area. Remove patch after 12 hours. acetaminophen (TYLENOL EXTRA STRENGTH) 500 mg tablet Take 2 tablets by mouth three times a day as needed for pain. lidocaine HCL 4 % ptmd Apply 1 Patch to affected area once daily. No current facility-administered medications on file prior to visit. [facility] [place] CLINICAL ASSESSMENT - NEUROLOGY V7: Assessment to use: Refill Assessment of injection issues or necrosis at injection sites: N/A Screening for infection: Yes Drug specific assessments, as appropriate: Yes Current medication list (including drug interaction assessment): Yes Experience of adverse reactions to the medication: Yes Current PDC%: 98 Date of influenza vaccination reminder: 05/23/2023 Date of most recent vaccination assessment: 05/23/2023 Treatment Plan Information: No information available Est. Tx Plan Start Date: No information available Estimated Start Date Info: No information available Est. Estimated Treatment Duration: No information available Judy Templeton (Intern) [facility] 02-14-2024 Note HNO ID: [id number] Author: SAL MALLOY MD Service: ? Author Type: Physician Type: Progress Notes Filed: 02/14/2024 10:16 Note Text: Bryan is a 53 year old who presents for an annual gynecologic exam with complaints, heavy bleeding. Endometrial biopsy 2021 , benign inactive endometrium. Patient experienced 2 days of vaginal bleeding, notes irregular light spotting the past year. History of fibroids. Postmenopausal: Yes since age 43 HRT use: No. 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 History Comments: Sexual Activity: No sexual activity data on record; No partner data on record Contraception: No contraception data on record PAST MEDICAL HISTORY Diagnosis Date Cocaine use reports relapsed in 2019 but now sober again Depression Fibroid Multiple sclerosis (HCC) Smoking Stroke (cerebrum) (HCC) 2016 had trouble walking PAST SURGICAL HISTORY Procedure Laterality Date >=3 FAMILY HISTORY Problem Relation Age of Onset Hypertension Mother Diabetes Mother COPD Father Hypertension Sister Diabetes Sister SOCIAL HISTORY Social History Tobacco Use Smoking status: Some Days Types: Cigarettes Smokeless tobacco: Never Tobacco comments: Not daily; 3-4 per day when she does smoke. Vaping Use Vaping Use: Never used Substance Use Topics Alcohol use: Not Currently Drug use: Yes Types: Cocaine, Marijuana Comment: Marijuana as needed. history of cocaine states relapsed in 2019 none since then REVIEW OF SYSTEMS Abdomen: No abdominal pain, nausea, vomiting, diarrhea, or constipation. No bloating, early satiety, indigestion, or increased flatulence. Bladder: No dysuria, gross hematuria, urinary frequency, urinary urgency, or incontinence Breast: No breast lumps, nipple d/c, overlying skin changes, redness or skin retraction Allergies and current medication updated:Yes EXAM: BP 130/62 Pulse 66 Ht 5' 0 (1.52m) Wt 215 lb 13.3 oz (97.9kg) LMP 04/28/2020 BMI 42.15 kg/(m2). GENERAL: pleasant, americanfemale in no apparent distress HEENT: Normocephalic, atraumatic, mucus membranes moist, and no lesions NECK: Supple, full range of motion, no adenopathy, and thyroid normal DERMATOLOGY: Normal, without lesions, non-icteric, and non-hirsute BREAST: soft, non-tender, symmetric, no dominant mass, normal nipple-areolar complex, no lymphadenopathy, and no nipple discharge CHEST: Normal inspiratory effort ABDOMEN: soft, non-tender, and no masses PELVIC: external genitalia normal, normal Bartholin's glands, urethra, Lowman's glands, no vulvar lesions, no cervical lesions, good vaginal support, physiologic discharge present, normal appearing perineal body and perianal region BIMANUAL: no adnexal masses, non-tender, and enlarged uterus 16-18 week size RECTOVAGINAL: deferred. NEURO: alert and oriented x3,exam grossly non-focal EXTREMITIES: normal ASSESSMENT/PLAN: 1) Health maintenance: Pap done with HPV. Mammogram up to date Referred to [facility] for hysterectomy consult Symptomatic Fibroids 2) Follow up one year or sooner as needed Adenike Cline MA was present as melter assistant for the entirety of the exam. Sal Malloy MD [facility] 02-14-2024 History of Present illness Narrative Bryan is a 53 year old who presents for an annual gynecologic exam with complaints, heavy bleeding. Endometrial biopsy 2021 , benign inactive endometrium. Patient experienced 2 days of vaginal bleeding, notes irregular light spotting the past year. History of fibroids. Postmenopausal: Yes since age 43 HRT use: No. 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 History Comments: Sexual Activity: No sexual activity data on record; No partner data on record Contraception: No contraception data on record PAST MEDICAL HISTORY Diagnosis Date Cocaine use reports relapsed in 2020 but now sober again Depression Fibroid Multiple sclerosis (HCC) Smoking Stroke (cerebrum) (HCC) 2016 had trouble walking PAST SURGICAL HISTORY Procedure Laterality Date >=3 FAMILY HISTORY Problem Relation Age of Onset Hypertension Mother Diabetes Mother COPD Father Hypertension Sister Diabetes Sister SOCIAL HISTORY Social History Tobacco Use Smoking status: Some Days Types: Cigarettes Smokeless tobacco: Never Tobacco comments: Not daily; 3-4 per day when she does smoke. Vaping Use Vaping Use: Never used Substance Use Topics Alcohol use: Not Currently Drug use: Yes Types: Cocaine, Marijuana Comment: Marijuana as needed. history of cocaine states relapsed in 2019 none since then REVIEW OF SYSTEMS Abdomen: No abdominal pain, nausea, vomiting, diarrhea, or constipation. No bloating, early satiety, indigestion, or increased flatulence. Bladder: No dysuria, gross hematuria, urinary frequency, urinary urgency, or incontinence Breast: No breast lumps, nipple d/c, overlying skin changes, redness or skin retraction Allergies and current medication updated:Yes EXAM: BP 130/62 Pulse 66 Ht 5' 0 (1.52m) Wt 215 lb 13.3 oz (97.9kg) LMP 04/28/2020 BMI 42.15 kg/(m^2). GENERAL: pleasant, americanfemale in no apparent distress HEENT: Normocephalic, atraumatic, mucus membranes moist, and no lesions NECK: Supple, full range of motion, no adenopathy, and thyroid normal DERMATOLOGY: Normal, without lesions, non-icteric, and non-hirsute BREAST: soft, non-tender, symmetric, no dominant mass, normal nipple-areolar complex, no lymphadenopathy, and no nipple discharge CHEST: Normal inspiratory effort ABDOMEN: soft, non-tender, and no masses PELVIC: external genitalia normal, normal Bartholin's glands, urethra, Lowman's glands, no vulvar lesions, no cervical lesions, good vaginal support, physiologic discharge present, normal appearing perineal body and perianal region BIMANUAL: no adnexal masses, non-tender, and enlarged uterus 16-18 week size RECTOVAGINAL: deferred. NEURO: alert and oriented x3,exam grossly non-focal EXTREMITIES: normal ASSESSMENT/PLAN: 1) Health maintenance: Pap done with HPV. Mammogram up to date Referred to [facility] for hysterectomy consult Symptomatic Fibroids 2) Follow up one year or sooner as needed Adenike Cline MA was present as melter assistant for the entirety of the exam. Sal Malloy MD documented in this encounter [facility] 02-05-2024 Note HNO ID: [id number] Author: MAGALI GREGORY RPh Service: ? Author Type: ? Type: Progress Notes Filed: 02/19/2024 16:52 Note Text: [facility] Special[facility] Refill Assessment Medication(s): Zeposia Noted upcoming hysterectomy Magali Gregory RPh Patient's current medication list and adherence status to current therapy were reviewed by Specialty Pharmacy clinical pharmacist to identify any new drug interactions or non-compliance to therapy. Therapy continues to be appropriate for disease, patient response, and medical condition. Verification of therapeutic benefit and effectiveness with current therapy was completed. Adverse events, barriers in adherence, and side effects were assessed and addressed if applicable. Will proceed with refill with no changes in therapy - patient progressing towards achieving therapeutic goals based on medication-specific laboratory parameters, disease state markers and outcomes. Crm Functional Analyst Assessment Patient confirmed: Yes Med/dose confirmed: Yes Supplies needed: No supplies needed Missed doses: Yes Count of missed doses: 1 Reason for missed doses: by accident Estimated days supply on hand: 12 Next cycle/dose due: 02/14/24 Copay amount: 0 Payment confirmed: Yes Delivery method: FedEx Signature required: Waived on patient request Delivery address: [address] [place] [id number] ([facility] address) Delivery date: 02/21/24 Questions or concerns for the pharmacist?: No (advised pt to get lab work done for more refills-pt will go neel) Did you have any side effects believed to be related to this medication, that resulted in hospitalization?: No Current Outpatient Medications on File Prior to Visit Medication Sig ozanimod (ZEPOSIA) 0.92 mg capsule Take 1 capsule by mouth once daily. Obtain blood work for further refills. pregabalin (LYRICA) 300 mg capsule Take 1 capsule by mouth two times a day for 120 days. hydrocortisone 0.5 % cream APPLY TO AFFECTED AREA TWO TIMES A DAY FOR 7 DAYS. atorvastatin (LIPITOR) 20 mg tablet Take 1 tablet by mouth once daily. baclofen 20 mg tablet Take 1 tablet (20mg) by mouth in the morning and afternoon and 2 tablets (40 mg) by mouth in the evening saliva substitute combo no.9 (BIOTENE DRY MOUTH ORAL RINSE) mwsh Use 15 mL as instructed two times a day as needed (dry mouth). cyanocobalamin (VITAMIN B-12) 1,000 mcg tab Take 1 tablet by mouth once daily. DULoxetine (CYMBALTA) 60 mg capsule Take 1 capsule by mouth daily at bedtime. Patient should start on October 04, 2023. famotidine (PEPCID) 20 mg tablet Take 20 mg by mouth two times a day. nicotine (NICODERM) 14 mg/24 hr Apply 1 Patch as directed every 24 hours. nicotine polacrilex (NICORETTE) 2 mg gum Take 1 Each by mouth every hour as needed. Max 20 pieces in 1 day. ergocalciferol 50,000 unit capsule (VITAMIN D2, DRISDOL) Take 1 capsule by mouth one time a week. saliva substitute combo no.9 (BIOTENE DRY MOUTH ORAL RINSE) mwsh Use 15 mL as instructed three times a day as needed. lidocaine (LIDODERM) 5 % Apply 1 Patch as directed once daily. to affected area. Remove patch after 12 hours. acetaminophen (TYLENOL EXTRA STRENGTH) 500 mg tablet Take 2 tablets by mouth three times a day as needed for pain. lidocaine HCL 4 % ptmd Apply 1 Patch to affected area once daily. No current facility-administered medications on file prior to visit. [facility] Visit Assessment - Neurology: Assessment to use: Refill Vaccination Assessment: Date of influenza vaccination reminder: 05/23/2023 Date of most recent vaccination assessment: 05/23/2023 Refill Assessment: Assessment of injection issues or necrosis at injection sites: N/A Screening for infection: Yes Adverse reactions and mitigation: Yes Drug specific assessments, as appropriate: Yes Additional Assessment: S/Sx of relapse: No S/Sx of progression to secondary progressive disease: No Judy Templeton (Intern) [facility] 02-05-2024 Telephone encounter Note The following approved medication requests have been transmitted electronically. Requested Prescriptions Signed Prescriptions Disp Refills ozanimod (ZEPOSIA) 0.92 mg capsule 30 capsule 3 Sig: Take 1 capsule by mouth once daily. Obtain blood work for further refills. Authorizing Provider: RAYMOND KEMP APRN.SHAYLA [facility] 02-05-2024 Miscellaneous Notes The following approved medication requests have been transmitted electronically. Requested Prescriptions Signed Prescriptions Disp Refills ozanimod (ZEPOSIA) 0.92 mg capsule 30 capsule 3 Sig: Take 1 capsule by mouth once daily. Obtain blood work for further refills. Authorizing Provider: RAYMOND KEMP APRN.COMPENSATION CONSULTING MANAGER Provider is Leobardo Patient continues on Zeposia Date of patients last office visit 01/31/24 Last labs Next appointment date: 05/08/24 Requested Prescriptions Pending Prescriptions Disp Refills ozanimod (ZEPOSIA) 0.92 mg capsule 30 capsule 6 Sig: Take 1 capsule by mouth once daily Patient prefers: [facility] Thank you! Magali Gregory RPh documented in this encounter [facility] 02-04-2024 Telephone encounter Note Provider is Leobardo Patient continues on Zeposia Date of patients last office visit 01/31/24 Last labs Next appointment date: 05/08/24 Requested Prescriptions Pending Prescriptions Disp Refills ozanimod (ZEPOSIA) 0.92 mg capsule 30 capsule 6 Sig: Take 1 capsule by mouth once daily Patient prefers: [facility] Thank you! Magali Gregory RPh [facility] 01-31-2024 Instructions Raymond Kemp APRN.COMPENSATION CONSULTING MANAGER - 01/31/2024 10:27 AM EDT The goal is to have a comfortable bowel movement either every day, every other day, or every 2-3 days For regular bowel movements you need fluid (1 -2 quarts a day), fiber (20-30 grams a day) and activity - 1/3 cup fiber one, all bran, or 100% bran buds gives you HALF the fiber you need for the day. - [place] foods, spicy foods, or food intolerance's (lactose) may cause loose stool and may result in involuntary bowel. - Must eat regularly for regular bowel habits. - Plan for a bowel movement each day about hour after eating or drinking something warm, can try hot/warm tea, hot/warm water with lemon, etc. (peristaltic activity is increased at this time) - Sit on the toilet for about 10 minutes and try to have a bowel movement. You may want to gently rock back and forth on the toilet. If nothing happens, leave the bathroom and try again later. - It may take 2-3 months to develop a pattern for bowel habits! Bowel Tips: 3 Pronged approach 1.) Keep in Loose: Metamucil, fluids, fiber, colace, miralax (1/2 capful of Miralax every other day) 2.) Timin-30 minutes after eating ANY meal (stomach expands) go to the bathroom, whether you think you have to go or not; Warm cup of tea/hot water with lemon juice may also help stimulate bowel movement 3.) Positioning: Raising feet/knees up onto a stool to help unkink the bowels. You may want to check out this web site for the [employer] http://www.[employer].Judys Book/ Good sources of fiber include: - whole wheat pasta - chickpeas - edamame - berries, especially blackberries and raspberries - pears - artichoke hearts - brussel sprouts - cinthia seeds - avocados There are also plenty of snacks that use the above ingredients, which would be a good place to start to increase your intake of fiber. - trail mix - popcorn - granola bars - sweet potato fries - oatmeal PLAN: - Continue Zeposia - Labs: CBC diff, CMP, B12, MMA, vitamin D - MRI brain August 2024 - Schedule: - Sleep Medicine referral for suspected sleep apnea - PT, OT, and cognitive therapy - Continue following with primary care re: pre-diabetes - Follow up in 3 months documented in this encounter [facility] 01-31-2024 History of Present illness Narrative Images from the original note were not included. [facility] FOLLOWUP/ESTABLISHED PATIENT VISIT PRINCIPAL NEUROLOGIC DIAGNOSIS: Multiple Sclerosis DISEASE SUMMARY Date of onset: 03/2019 Date of diagnosis of MS: 03/2020 Disease course at onset: Relapsing-Remitting Current disease course: Relapsing-Remitting Previous disease therapies: - IVMP x 3 08/2023 (worsening LUE weakness and numbness) Current disease therapy: Zeposia (Jul 2020-Present) Most recent MRI brain: 08/28/23 ([facility]), 06/17/2021 Most recent MRI cervical spine: 08/28/23 ([facility]) Most recent MRI thoracic spine: 08/28/23 ([facility]) CSF: NA JCV serology result and date: 03/2020 negative Brief Disease History: - Mar 2019 bilateral leg weakness, urinary retention - Jul 2019 hyperacute onset L arm numbness and subtle weakness(dropping items) occurring when lifting a duffle bag - Jul 2019-February 2020 noticed balance difficulty CHIEF COMPLAINT: Follow-up on MS disease modifying therapy Usual treating team: Stephan/ Pedro The patient is unaccompanied. The patient was last seen 09/20/23, currently taking Zeposia. Since the patient's last visit the patient reports overall feeling stable. Issues with current therapy: Tolerating medication without side effects. INTERVAL HISTORY: Right hand middle finger started locking up Not necessarily painful, has been hppening for about 1.5 months Denies missed doses of Zeposia, tolerates it well Denies vision changes Denies illness or infection Continues to be sober, stopped counting days but has been many months REVIEW OF SYSTEMS: Mood: continues to work with counselor, continues on Cymbalta Spasticity:denies Bladder: Stable Bowel: constipation at times, uses Miralax Pain: continues on Lyrica Fatigue: significant, but does not nap Sleep: poor sleep, is restless Memory/Concentration: continues to have memory concerns, did not do cognitive therapy yet Neuro-QoL Functions (higher=better functioning) Flowsheet [facility] Office Visit from 07/19/[address] [facility] Office Visit from 04/18/[address] [facility] Office Visit from 10/27/[address] [facility] Upper Extremity Domain T Score 44.53 42.12 42.58 Lower Extremity Domain T Score 40.35 34.04 36.94 Cognitive Function Domain T Score 48.64 46.37 52.55 Positive Affect Well Being T Score -- -- -- Ability To Participate In Social Roles T Score 44.12 33.38 37.21 Satisfaction With Social Roles T Score 41.34 36.98 40.61 Neuro-QoL Symptoms (higher=worse symptoms) Flowsheet [facility] Office Visit from 07/19/[address] [facility] Office Visit from 04/18/[address] [facility] Office Visit from 10/27/[address] [facility] Sleep Domain T Score 57.7 61.86 67.68 Fatigue Domain T Score 56.21 58.38 50.45 Anxiety Domain T Score 48.72 48.87 56.09 Depression Domain T Score 46.25 47.97 55.43 Stigma Domain T Score 36.56 51.87 44.69 Emotional Behavior Dyscontrol T Score -- -- -- has a past medical history of Cocaine use, Depression, Multiple sclerosis ([facility]), Smoking, and Stroke (cerebrum) ([facility]). has a current medication list which includes the following prescription(s): zeposia, cyanocobalamin, famotidine, nicotine, nicotine polacrilex, biotene dry mouth oral rinse, lidocaine, acetaminophen, lidocaine hcl, pregabalin, iv contrast, hydrocortisone, nystatin, atorvastatin, baclofen, biotene dry mouth oral rinse, duloxetine, duloxetine, and ergocalciferol (vitamin d2). EXAM: BP 160/77 Pulse 74 Wt 94.1 kg (207 lb 7.3 oz) LMP 04/28/2020 (Within Years) BMI 40.20 kg/m MSPT Results Flowsheet [facility] Office Visit from 07/19/[address] [facility] Office Visit from 04/18/[address] [facility] Office Visit from 10/27/[address] [facility] Processing Speed Total Number Correct 45 46 40 Processing Speed Z score 0.42 0.51 -0.19 Dominant hand -- -- -- MDT Left Hand Time 24.54 27.5 -- MDT Right Hand Time 28.79 23.69 -- Walking Speed Test (25 feet) -- 8.56 -- General Appearance: well appearing, in no acute distress Mental status evaluation during the interview and examination showed normal level of consciousness, orientation, language, memory, praxis, and higher intellectual function Affect: over active, normal Extraocular movements: full, without EVIN Facial movements: Intact bilaterally Speech: normal Muscle strength (#/5): Right Left Upper Extremity: Deltoids 5 5 Biceps 5 5 Triceps 5 5 Admeasurer 5 5 Dorsal interossei 5 5 Lower extremity: Iliopsoas 5 5- Quadriceps 5 5 Hamstrings 5 5 Tibialis anterior 5 5 Gastrocnemius 5 5 Coordination: Upper extremity dexterity and rapid movements: very subtly impaired on left Finger-nose: no dysmetria; coordination intact Heel-smith: no dysmetria; coordination intact Standing balance: mildly impaired Standard gait: antalgic. Assistive device: independent Tandem walking: Impaired RESULTS: CBC + Diff Component Value Date WBC 7.71 07/19/2023 HB 13.3 07/19/2023 HCT 43.7 07/19/2023 PLT 329 07/19/2023 ABSLYMPH 0.85 (L) 07/19/2023 CMP Component Value Date AST 15 08/30/2023 GLUC 93 08/30/2023 BUN 14 08/30/2023 CREAT 0.61 08/30/2023 NA 142 08/30/2023 K 4.2 08/30/2023 CHLOR 105 08/30/2023 ALT 25 08/30/2023 Vitamin B12 Date Value Ref Range Status 08/30/2023 371 232 - 1,245 pg/mL Final TSH Date Value Ref Range Status 08/30/2023 1.810 0.270 - 4.200 mIU/L Final Hemoglobin A1C Date Value Ref Range Status 08/30/2023 6.3 (H) 4.3 - 5.6 % Final Comment: [place] [employer] guidelines indicate that patients with HgbA1c in the range 5.7-6.4% are at increased risk for development of diabetes, and intervention by lifestyle modification may be beneficial. HgbA1c greater or equal to 6.5% is considered diagnostic of diabetes. MRI Results: - MRI brain 08/28/23 ([facility]): There is no enhancement after contrast administration. There are foci of T2/FLAIR hyperintensity in the subcortical white matter and also in the right and left periventricular white matter involving the corpus collosum. 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 - MRI cervical spine 08/28/23 ([facility]): There is persistent area of demyelination in the left cord at C2-C3 unchanged since the prior study [07/2021]. There are no new areas of signal abnormality. There is no abnormal enhancement after contrast. There is multilevel spondylosis of the cervical spine. - MRI thoracic spine 08/28/23 ([facility]): Limited due to motion... the spinal cord is normal in course and caliber without areas of signal abnormality. There is no abnormal enhancement. There is no evidence of central canal narrowing. MRIs as above were reviewed by Dr. Ellen Rothman - no definite demyelinating lesion in the thoracic spine, no abnormal intraparenchymal gadolinium enhancement; T2 hyperintense lesion at C3, no Gde+; brain stable compared to 06/26, no abnormal gde+ ASSESSMENT: Bryan Cruz is a 53 year old female with Multiple Sclerosis. She continues on Zeposia for DMT which she continues to tolerate well. She denies new or worsening neurological symptoms. We will continue to address symptoms through physical therapy, occupational therapy, and cognitive therapy. I will refer her to sleep medicine for evaluation of ?sleep apnea contributing to daytime fatigue and inadequate night sleep. Plan as below, she is to follow up in 2-3 months or sooner if clinically indicated. Exam is:Stable, continue with current IMDT. The prescribed disease modifying therapy for MS is having the expected benefit in this patient based on imaging and clinical criteria, and will be continued or refilled, with planned follow-up at approximately 6-month intervals to continue to assess response on an ongoing basis. MRI of the brain and/or spinal cord is being ordered to evaluate for efficacy of multiple sclerosis (MS) disease modifying therapy. Disease activity in MS is often not immediately detectable on history or examination, but is sensitively identified on MRI. If identified, new or active MS lesions on MRI may represent suboptimal response to MS therapy, and would change medical management. PDMP website checked and validated. All prescriptions have been APPROPRIATELY filled. No suspicious activity was identified. 01/31/2024 by Raymond Kemp APRN.CNP PLAN: - Continue Zeposia - Labs: CBC diff, CMP, B12, MMA, vitamin D - MRI brain August 2024 - Schedule: - Sleep Medicine referral - PT, OT, and cognitive therapy - Continue following with primary care re: pre-diabetes - Refills provided for atorvastatin, nystatin, and biotene x 1 month while awaiting appt with primary care - Follow up in 3 months Office Visit on 01/31/24 MRI BRAIN WO/W IVCON COMPLETE BLOOD COUNT AND DIFFERENTIAL COMPREHENSIVE METABOLIC PANEL VITAMIN B12 METHYLMALONIC ACID VITAMIN D 25 HYDROXY CONSULT TO SLEEP MEDICINE - ADULT Patient Health Education Discussed at Visit: Emotional Health/Wellness, Risks and Common side effects of MS medications, Smoking Cessation, Stress management, and Vitamin D supplementation Follow-up: In 3 months at [place] or Virtual Visit with [facility] I spent a total of 40 minutes on the date of the service which included preparing to see the patient, [id number] patient care, completing clinical documentation, obtaining and/or reviewing separately obtained history, performing a medically appropriate examination, counseling and educating the patient/family/caregiver, and ordering medications, tests, or procedures. Raymond Kemp APRN.CNP [facility] for Multiple Sclerosis documented in this encounter [facility] 01-31-2024 Note HNO ID: [id number] Author: RAYMOND KEMP APRN.CNP Service: ? Author Type: Nurse Practitioner Type: Progress Notes Filed: 01/31/2024 10:56 Note Text: [facility] FOLLOWUP/ESTABLISHED PATIENT VISIT PRINCIPAL NEUROLOGIC DIAGNOSIS: Multiple Sclerosis DISEASE SUMMARY Date of onset: 03/2019 Date of diagnosis of MS: 03/2020 Disease course at onset: Relapsing-Remitting Current disease course: Relapsing-Remitting Previous disease therapies: - IVMP x 3 08/2023 (worsening LUE weakness and numbness) Current disease therapy: Zeposia (Jul 2020-Present) Most recent MRI brain: 08/28/23 ([facility]), 06/17/2021 Most recent MRI cervical spine: 08/28/23 ([facility]) Most recent MRI thoracic spine: 08/28/23 ([facility]) CSF: NA JCV serology result and date: 03/2020 negative Brief Disease History: - Mar 2019 bilateral leg weakness, urinary retention - Jul 2019 hyperacute onset L arm numbness and subtle weakness(dropping items) occurring when lifting a duffle bag - Jul 2019-February 2020 noticed balance difficulty CHIEF COMPLAINT: Follow-up on MS disease modifying therapy Usual treating team: Stephan/ Pedro The patient is unaccompanied. The patient was last seen 09/20/23, currently taking Zeposia. Since the patient's last visit the patient reports overall feeling stable. Issues with current therapy: Tolerating medication without side effects. INTERVAL HISTORY: Right hand middle finger started locking up Not necessarily painful, has been hppening for about 1.5 months Denies missed doses of Zeposia, tolerates it well Denies vision changes Denies illness or infection Continues to be sober, stopped counting days but has been many months REVIEW OF SYSTEMS: Mood: continues to work with counselor, continues on Cymbalta Spasticity:denies Bladder: Stable Bowel: constipation at times, uses Miralax Pain: continues on Lyrica Fatigue: significant, but does not nap Sleep: poor sleep, is restless Memory/Concentration: continues to have memory concerns, did not do cognitive therapy yet Neuro-QoL Functions (higher=better functioning) Flowsheet [facility] Office Visit from 07/19/[address] [facility] Office Visit from 04/18/[address] [facility] Office Visit from 10/27/[address] [facility] Upper Extremity Domain T Score 44.53 42.12 42.58 Lower Extremity Domain T Score 40.35 34.04 36.94 Cognitive Function Domain T Score 48.64 46.37 52.55 Positive Affect Well Being T Score -- -- -- Ability To Participate In Social Roles T Score 44.12 33.38 37.21 Satisfaction With Social Roles T Score 41.34 36.98 40.61 Neuro-QoL Symptoms (higher=worse symptoms) Flowsheet [facility] Office Visit from 07/19/[address] [facility] Office Visit from 04/18/[address] [facility] Office Visit from 10/27/[address] [facility] Sleep Domain T Score 57.7 61.86 67.68 Fatigue Domain T Score 56.21 58.38 50.45 Anxiety Domain T Score 48.72 48.87 56.09 Depression Domain T Score 46.25 47.97 55.43 Stigma Domain T Score 36.56 51.87 44.69 Emotional Behavior Dyscontrol T Score -- -- -- has a past medical history of Cocaine use, Depression, Multiple sclerosis ([facility]), Smoking, and Stroke (cerebrum) ([facility]). has a current medication list which includes the following prescription(s): zeposia, cyanocobalamin, famotidine, nicotine, nicotine polacrilex, biotene dry mouth oral rinse, lidocaine, acetaminophen, lidocaine hcl, pregabalin, iv contrast, hydrocortisone, nystatin, atorvastatin, baclofen, biotene dry mouth oral rinse, duloxetine, duloxetine, and ergocalciferol (vitamin d2). EXAM: BP 160/77 Pulse 74 Wt 94.1 kg (207 lb 7.3 oz) LMP 04/28/2020 (Within Years) BMI 40.20 kg/m? MSPT Results Flowsheet Row Office Visit from 07/19/[address] [facility] Office Visit from 04/18/[address] [facility] Office Visit from 10/27/[address] [facility] Processing Speed Total Number Correct 45 46 40 Processing Speed Z score 0.42 0.51 -0.19 Dominant hand -- -- -- MDT Left Hand Time 24.54 27.5 -- MDT Right Hand Time 28.79 23.69 -- Walking Speed Test (25 feet) -- 8.56 -- General Appearance: well appearing, in no acute distress Mental status evaluation during the interview and examination showed normal level of consciousness, orientation, language, memory, praxis, and higher intellectual function Affect: over active, normal Extraocular movements: full, without EVIN Facial movements: Intact bilaterally Speech: normal Muscle strength (#/5): Right Left Upper Extremity: Deltoids 5 5 Biceps 5 5 Triceps 5 5 Admeasurer 5 5 Dorsal interossei 5 5 Lower extremity: Iliopsoas 5 5- Quadriceps 5 5 Hamstrings 5 5 Tibialis anterior 5 5 Gastrocnemius 5 5 Coordination: Upper extremity dexterity and rapid movements: very subtly impaired on left Finger-nose: no dysmetria; coordination intact Heel-smith: no dysmetria; coordination intact Standing balance: mildly impaired Standard gait: antalgic. Assistive device: independent Tandem walking: Impaired RES (more content not included)... [facility] 01-10-2024 Note HNO ID: [id number] Author: MAGALI GREGORY RPh Service: ? Author Type: ? Type: Progress Notes Filed: 01/14/2024 11:51 Note Text: [facility] Refill Assessment Medication(s): Zeposia Patient's current medication list and adherence status to current therapy were reviewed by Specialty Pharmacy clinical pharmacist to identify any new drug interactions or non-compliance to therapy. Therapy continues to be appropriate for disease, patient response, and medical condition. Verification of therapeutic benefit and effectiveness with current therapy was completed. Adverse events, barriers in adherence, and side effects were assessed and addressed if applicable. Will proceed with refill with no changes in therapy - patient progressing towards achieving therapeutic goals based on medication-specific laboratory parameters, disease state markers and outcomes. Crm Functional Analyst Assessment Patient confirmed: Yes Med/dose confirmed: Yes Supplies needed: No supplies needed Missed doses: No Estimated days supply on hand: (4-5) Next cycle/dose due: 01/14/24 Copay amount: 0 Payment confirmed: Yes Delivery method: FedEx Signature required: Required (, Medicaid, patient preference) Delivery address: [address] [id number] Delivery date: 01/16/24 Questions or concerns for the pharmacist?: No Current Outpatient Medications on File Prior to Visit Medication Sig pregabalin (LYRICA) 300 mg capsule Take 1 capsule by mouth two times a day for 120 days. baclofen 20 mg tablet Take 1 tablet (20mg) by mouth in the morning and afternoon and 2 tablets (40 mg) by mouth in the evening ozanimod (ZEPOSIA) 0.92 mg capsule Take 1 capsule by mouth once daily hydrocortisone 0.5 % cream APPLY TO AFFECTED AREA TWO TIMES A DAY FOR 7 DAYS. cyanocobalamin (VITAMIN B-12) 1,000 mcg tab Take 1 tablet by mouth once daily. DULoxetine (CYMBALTA) 60 mg capsule Take 1 capsule by mouth daily at bedtime. Patient should start on October 04, 2023. famotidine (PEPCID) 20 mg tablet Take 20 mg by mouth two times a day. atorvastatin (LIPITOR) 20 mg tablet Take 1 tablet by mouth once daily. nicotine (NICODERM) 14 mg/24 hr Apply 1 Patch as directed every 24 hours. nicotine polacrilex (NICORETTE) 2 mg gum Take 1 Each by mouth every hour as needed. Max 20 pieces in 1 day. iv contrast (will be provided with radiology test) MRI TSP Inject, intravenously, once for 1 dose. No IV access, insert saline lock prior to the beginning of sedation, infusion, injection of imaging exam. Discontinue saline lock post exam. If Pt. has a central line or IVAD, may access for administration according to line specific nursing protocol. Once exam is complete flush line and de-access according to line specific nursing protocol in the MR contrast administration guidelines link. ergocalciferol 50,000 unit capsule (VITAMIN D2, DRISDOL) Take 1 capsule by mouth one time a week. saliva substitute combo no.9 (BIOTENE DRY MOUTH ORAL RINSE) mwsh Use 15 mL as instructed three times a day as needed. polyethylene glycol 3350 (MIRALAX) 17 gram/dose powder Take 17 g by mouth two times a day. Dissolve dose in 4 - 8 ounces of liquid and take as directed. lidocaine (LIDODERM) 5 % Apply 1 Patch as directed once daily. to affected area. Remove patch after 12 hours. acetaminophen (TYLENOL EXTRA STRENGTH) 500 mg tablet Take 2 tablets by mouth three times a day as needed for pain. lidocaine HCL 4 % ptmd Apply 1 Patch to affected area once daily. No current facility-administered medications on file prior to visit. [facility] Visit Assessment - Neurology: Assessment to use: Refill Vaccination Assessment: Date of influenza vaccination reminder: 05/23/2023 Date of most recent vaccination assessment: 05/23/2023 Refill Assessment: Assessment of injection issues or necrosis at injection sites: N/A Screening for infection: Yes Adverse reactions and mitigation: Yes Drug specific assessments, as appropriate: Yes Additional Assessment: S/Sx of relapse: No S/Sx of progression to secondary progressive disease: No Judy Templeton (Intern) Magali Gregory RPh [facility] 12-17-2023 Note HNO ID: [id number] Author: NESS DOAN RP Service: ? Author Type: ? Type: Progress Notes Filed: 12/18/2023 12:39 Note Text: [facility] Refill Assessment Medication(s): Zeposia Patient's current medication list and adherence status to current therapy were reviewed by Specialty Pharmacy clinical pharmacist to identify any new drug interactions or non-compliance to therapy. Therapy continues to be appropriate for disease, patient response, and medical condition. Verification of therapeutic benefit and effectiveness with current therapy was completed. Adverse events, barriers in adherence, and side effects were assessed and addressed if applicable. Will proceed with refill with no changes in therapy - patient progressing towards achieving therapeutic goals based on medication-specific laboratory parameters, disease state markers and outcomes. Ness Doan [facility] Crm Functional Analyst Assessment Patient confirmed: Yes Med/dose confirmed: Yes Missed doses: No Estimated days supply on hand: 2 Next cycle/dose due: 12/19/23 Copay amount: 0 Delivery method: FedEx Signature required: Required (, Medicaid, patient preference) Delivery address: [address] [place] [address] Delivery date: 12/20/23 Questions or concerns for the pharmacist?: No Current Outpatient Medications on File Prior to Visit Medication Sig pregabalin (LYRICA) 300 mg capsule Take 1 capsule by mouth two times a day for 120 days. baclofen 20 mg tablet Take 1 tablet (20mg) by mouth in the morning and afternoon and 2 tablets (40 mg) by mouth in the evening ozanimod (ZEPOSIA) 0.92 mg capsule Take 1 capsule by mouth once daily hydrocortisone 0.5 % cream APPLY TO AFFECTED AREA TWO TIMES A DAY FOR 7 DAYS. cyanocobalamin (VITAMIN B-12) 1,000 mcg tab Take 1 tablet by mouth once daily. DULoxetine (CYMBALTA) 60 mg capsule Take 1 capsule by mouth daily at bedtime. Patient should start on October 04, 2023. famotidine (PEPCID) 20 mg tablet Take 20 mg by mouth two times a day. atorvastatin (LIPITOR) 20 mg tablet Take 1 tablet by mouth once daily. nicotine (NICODERM) 14 mg/24 hr Apply 1 Patch as directed every 24 hours. nicotine polacrilex (NICORETTE) 2 mg gum Take 1 Each by mouth every hour as needed. Max 20 pieces in 1 day. iv contrast (will be provided with radiology test) MRI TSP Inject, intravenously, once for 1 dose. No IV access, insert saline lock prior to the beginning of sedation, infusion, injection of imaging exam. Discontinue saline lock post exam. If Pt. has a central line or IVAD, may access for administration according to line specific nursing protocol. Once exam is complete flush line and de-access according to line specific nursing protocol in the MR contrast administration guidelines link. ergocalciferol 50,000 unit capsule (VITAMIN D2, DRISDOL) Take 1 capsule by mouth one time a week. saliva substitute combo no.9 (BIOTENE DRY MOUTH ORAL RINSE) mwsh Use 15 mL as instructed three times a day as needed. polyethylene glycol 3350 (MIRALAX) 17 gram/dose powder Take 17 g by mouth two times a day. Dissolve dose in 4 - 8 ounces of liquid and take as directed. lidocaine (LIDODERM) 5 % Apply 1 Patch as directed once daily. to affected area. Remove patch after 12 hours. acetaminophen (TYLENOL EXTRA STRENGTH) 500 mg tablet Take 2 tablets by mouth three times a day as needed for pain. lidocaine HCL 4 % ptmd Apply 1 Patch to affected area once daily. No current facility-administered medications on file prior to visit. [facility] Visit Assessment - Neurology: Assessment to use: Refill Vaccination Assessment: Date of influenza vaccination reminder: 05/23/2023 Date of most recent vaccination assessment: 05/23/2023 Refill Assessment: Assessment of injection issues or necrosis at injection sites: N/A Screening for infection: Yes Adverse reactions and mitigation: Yes Drug specific assessments, as appropriate: Yes Additional Assessment: S/Sx of relapse: No S/Sx of progression to secondary progressive disease: No Branden Barragan CPhT Neurology, Cardiology AND Infectious Disease [facility] 11-30-2023 Telephone encounter Note Called patient, at home number/number listed in initial message, indicates it is no longer in service. Called mobile number listed in demographics, notified Pregabalin refilled as requested. She states both phone numbers are still valid in her chart, she just needs to add more minutes to the home number. Anita Perez RN [facility] 11-30-2023 Miscellaneous Notes Called patient, at home number/number listed in initial message, indicates it is no longer in service. Called mobile number listed in demographics, notified Pregabalin refilled as requested. She states both phone numbers are still valid in her chart, she just needs to add more minutes to the home number. Anita Perez RN PDMP website checked and validated. All prescriptions have been APPROPRIATELY filled. No suspicious activity was identified. 11/30/2023 by Raymond Kemp APRN.CNP The following approved medication requests have been transmitted electronically. Requested Prescriptions Signed Prescriptions Disp Refills pregabalin (LYRICA) 300 mg capsule 60 capsule 3 Sig: Take 1 capsule by mouth two times a day for 120 days. Authorizing Provider: RAYMOND KEMP APRN.CNP Patient has been identified by name and date of : Yes Requested Prescriptions Pending Prescriptions Disp Refills pregabalin (LYRICA) 300 mg capsule 60 capsule 3 Sig: Take 1 capsule by mouth two times a day for 120 days. RX INSTRUCTIONS: Patient requesting a call when RX is approved and sent to the pharmacy. Please call patient at: [phone] Nathan Cruz documented in this encounter [facility] 11-30-2023 Telephone encounter Note PDMP website checked and validated. All prescriptions have been APPROPRIATELY filled. No suspicious activity was identified. 11/30/2023 by Raymond Kemp APRN.CNP The following approved medication requests have been transmitted electronically. Requested Prescriptions Signed Prescriptions Disp Refills pregabalin (LYRICA) 300 mg capsule 60 capsule 3 Sig: Take 1 capsule by mouth two times a day for 120 days. Authorizing Provider: RAYMOND KEMP APRN.CNP [facility] 11-30-2023 Telephone encounter Note Patient has been identified by name and date of : Yes Requested Prescriptions Pending Prescriptions Disp Refills pregabalin (LYRICA) 300 mg capsule 60 capsule 3 Sig: Take 1 capsule by mouth two times a day for 120 days. RX INSTRUCTIONS: Patient requesting a call when RX is approved and sent to the pharmacy. Please call patient at: [phone] Nathan Cruz [facility] 11-08-2023 Note HNO ID: [id number] Author: NESS DOAN RPh Service: ? Author Type: ? Type: Progress Notes Filed: 11/22/2023 14:26 Note Text: [facility] Refill Assessment Medication(s): Zeposia Patient's current medication list and adherence status to current therapy were reviewed by Specialty Pharmacy clinical pharmacist to identify any new drug interactions or non-compliance to therapy. Therapy continues to be appropriate for disease, patient response, and medical condition. Verification of therapeutic benefit and effectiveness with current therapy was completed. Adverse events, barriers in adherence, and side effects were assessed and addressed if applicable. Will proceed with refill with no changes in therapy - patient progressing towards achieving therapeutic goals based on medication-specific laboratory parameters, disease state markers and outcomes. Ness Doan RPh Crm Functional Analyst Assessment Patient confirmed: Yes Med/dose confirmed: Yes Supplies needed: No supplies needed Missed doses: Yes Count of missed doses: 2 Reason for missed doses: by accident Estimated days supply on hand: 7 Next cycle/dose due: 11/22/23 Copay amount: 0 Payment confirmed: Yes Delivery method: FedEx Signature required: Required (, Medicaid, patient preference) Delivery address: [address] [facility] [address] Delivery date: 11/26/23 Questions or concerns for the pharmacist?: No Current Outpatient Medications on File Prior to Visit Medication Sig baclofen 20 mg tablet Take 1 tablet (20mg) by mouth in the morning and afternoon and 2 tablets (40 mg) by mouth in the evening ozanimod (ZEPOSIA) 0.92 mg capsule Take 1 capsule by mouth once daily hydrocortisone 0.5 % cream APPLY TO AFFECTED AREA TWO TIMES A DAY FOR 7 DAYS. cyanocobalamin (VITAMIN B-12) 1,000 mcg tab Take 1 tablet by mouth once daily. DULoxetine (CYMBALTA) 60 mg capsule Take 1 capsule by mouth daily at bedtime. Patient should start on October 04, 2023. famotidine (PEPCID) 20 mg tablet Take 20 mg by mouth two times a day. atorvastatin (LIPITOR) 20 mg tablet Take 1 tablet by mouth once daily. nicotine (NICODERM) 14 mg/24 hr Apply 1 Patch as directed every 24 hours. nicotine polacrilex (NICORETTE) 2 mg gum Take 1 Each by mouth every hour as needed. Max 20 pieces in 1 day. iv contrast (will be provided with radiology test) MRI TSP Inject, intravenously, once for 1 dose. No IV access, insert saline lock prior to the beginning of sedation, infusion, injection of imaging exam. Discontinue saline lock post exam. If Pt. has a central line or IVAD, may access for administration according to line specific nursing protocol. Once exam is complete flush line and de-access according to line specific nursing protocol in the MR contrast administration guidelines link. pregabalin (LYRICA) 300 mg capsule Take 1 capsule by mouth two times a day for 120 days. ergocalciferol 50,000 unit capsule (VITAMIN D2, DRISDOL) Take 1 capsule by mouth one time a week. saliva substitute combo no.9 (BIOTENE DRY MOUTH ORAL RINSE) mwsh Use 15 mL as instructed three times a day as needed. polyethylene glycol 3350 (MIRALAX) 17 gram/dose powder Take 17 g by mouth two times a day. Dissolve dose in 4 - 8 ounces of liquid and take as directed. lidocaine (LIDODERM) 5 % Apply 1 Patch as directed once daily. to affected area. Remove patch after 12 hours. acetaminophen (TYLENOL EXTRA STRENGTH) 500 mg tablet Take 2 tablets by mouth three times a day as needed for pain. lidocaine HCL 4 % ptmd Apply 1 Patch to affected area once daily. No current facility-administered medications on file prior to visit. [facility] Visit Assessment - Neurology: Assessment to use: Refill Vaccination Assessment: Date of influenza vaccination reminder: 05/23/2023 Date of most recent vaccination assessment: 05/23/2023 Refill Assessment: Assessment of injection issues or necrosis at injection sites: N/A Screening for infection: Yes Adverse reactions and mitigation: Yes Drug specific assessments, as appropriate: Yes Additional Assessment: S/Sx of relapse: No S/Sx of progression to secondary progressive disease: No Judy Templeton (Intern) [facility] 10-17-2023 Miscellaneous Notes The following approved medication requests have been transmitted electronically. Requested Prescriptions Signed Prescriptions Disp Refills baclofen 20 mg tablet 360 tablet 1 Sig: Take 1 tablet (20mg) by mouth in the morning and afternoon and 2 tablets (40 mg) by mouth in the evening Authorizing Provider: RAYMOND KEMP APRN.CNP Source : electronic from pharmacy requesting refill. Delivery : e-script Requested Prescriptions Pending Prescriptions Disp Refills baclofen 20 mg tablet [Pharmacy Med Name: BACLOFEN 20 MG TABLET] 360 tablet 1 Sig: PLEASE SEE ATTACHED FOR DETAILED DIRECTIONS DX : Patient last seen 09-20-2023 Next Appointment : 11-29-2023 Anusha Lovett documented in this encounter [facility] 10-02-2023 Note HNO ID: [id number] Author: ?, ?, ? Service: ? Author Type: ? Type: Progress Notes Filed: 10/15/2023 17:00 Note Text: [facility] Refill Assessment Medication(s): Zeposia *REPLACEMENT* Patient's current medication list and adherence status to current therapy were reviewed by Specialty Pharmacy clinical pharmacist to identify any new drug interactions or non-compliance to therapy. Therapy continues to be appropriate for disease, patient response, and medical condition. Verification of therapeutic benefit and effectiveness with current therapy was completed. Adverse events, barriers in adherence, and side effects were assessed and addressed if applicable. Will proceed with refill with no changes in therapy - patient progressing towards achieving therapeutic goals based on medication-specific laboratory parameters, disease state markers and outcomes. Crm Functional Analyst Assessment Patient confirmed: Yes Med/dose confirmed: Yes Supplies needed: No supplies needed Missed doses: No Estimated days supply on hand: (2 or 3) Next cycle/dose due: 10/16/23 Copay amount: 0 Payment confirmed: Yes Delivery method: FedEx Signature required: Required (, Medicaid, patient preference) Delivery address: [address] [place] [address] Delivery date: 10/17/23 Questions or concerns for the pharmacist?: No [facility] Visit Assessment - Neurology: Assessment to use: Refill Vaccination Assessment: Date of influenza vaccination reminder: 05/23/2023 Date of most recent vaccination assessment: 05/23/2023 Judy Templeton (Intern) [facility] 10-02-2023 Note HNO ID: [id number] Author: NESS DOAN RPh Service: ? Author Type: ? Type: Progress Notes Filed: 10/10/2023 15:20 Note Text: [facility] Refill Assessment Medication(s): Zeposia Patient's current medication list and adherence status to current therapy were reviewed by Specialty Pharmacy clinical pharmacist to identify any new drug interactions or non-compliance to therapy. Therapy continues to be appropriate for disease, patient response, and medical condition. Verification of therapeutic benefit and effectiveness with current therapy was completed. Adverse events, barriers in adherence, and side effects were assessed and addressed if applicable. Will proceed with refill with no changes in therapy - patient progressing towards achieving therapeutic goals based on medication-specific laboratory parameters, disease state markers and outcomes. Ness Doan RPh Crm Functional Analyst Assessment Patient confirmed: Yes Med/dose confirmed: Yes Supplies needed: No supplies needed Missed doses: No Estimated days supply on hand: 306 Next cycle/dose due: 10/09/23 Copay amount: 0 Payment confirmed: Yes Delivery method: FedEx Signature required: Waived on patient request Delivery address: [address] [place] [address] Delivery date: 10/12/23 Questions or concerns for the pharmacist?: No [facility] Visit Assessment - Neurology: Assessment to use: Refill Vaccination Assessment: Date of influenza vaccination reminder: 05/23/2023 Date of most recent vaccination assessment: 05/23/2023 Refill Assessment: Assessment of injection issues or necrosis at injection sites: N/A Screening for infection: Yes Adverse reactions and mitigation: Yes Drug specific assessments, as appropriate: Yes Additional Assessment: S/Sx of relapse: No S/Sx of progression to secondary progressive disease: No Judy Templeton (Intern) [facility] 10-02-2023 Miscellaneous Notes Patient last office visit 09/20/2023. Requested Prescriptions Pending Prescriptions Disp Refills ozanimod (ZEPOSIA) 0.92 mg capsule 30 capsule 4 Sig: Take 1 capsule by mouth once daily Please review and advise. Ness Doan RPh documented in this encounter [facility] 09-21-2023 Miscellaneous Notes Called patient, verified name and , message below given. Patient verbalizes understanding, denies further questions/concerns. Patient will call back regarding US order, may want faxed to [facility]. Doreen Jiménez RN Call placed to patient. M for patient to call [phone], push option 3 to speak to a nurse. Raymond Pinon RN Left message on voicemail to return the call to the office for message below. Doreen Jiménez RN Left message on voicemail to return the call to the office for message below. Doreen Jiménez RN Agree she needs more recent US, due to large size of fibroids & her uterus she will likely need to see [facility], have her hold off on rescheduling anything until her US results are back. Thanks wolfgang Patient name and verified. Patient states she would like to reschedule appt due to transportation issues. Last US was 07/2021, nothing more recent. 08/02/2021 6:06 PM - [facility] Results Indication Follow-up on uterine fibroids . Follow-up on pelvic pain, Abnormal uterine bleeding Impression Bulky anteverted uterus measuring 190 mm x 97 mm x 123 mm and containing multiple large fibroids. Endometrium is obscured by fibroids. Neither ovary is visualized. No adnexal masses were observed. There is no free fluid visualized in the peritoneal cavity. Kidneys and ureters were not visualized on today's study. Recommendations Consider endometrial sampling and additional imaging as clinically indicated. Order pended if appropriate. Routing to provider for review. Doreen Jiménez RN Please call pt, she has an appointment tomorrow with me for a surgical consult for fibroids, she needs to see a MD. Also I don't see a recent pelvic US in her chart, can we confirm she has actually been diagnosed with fibroids please documented in this encounter [facility] 09-21-2023 Miscellaneous Notes Diagnosis codes were linked 90 day supply not appropriate at this time as this is a new medication for the patient. Titrating up until we can find adequate dosing The following approved medication requests have been transmitted electronically. Requested Prescriptions Refused Prescriptions Disp Refills DULoxetine (CYMBALTA) 30 mg capsule [Pharmacy Med Name: DULOXETINE HCL DR 30 MG CAP] 201 capsule 1 Sig: TAKE 1 CAPSULE BY MOUTH DAILY AT BEDTIME FOR 7 DAYS, THEN 2 CAPSULES DAILY AT BEDTIME. Refused By: RAYMOND KEMP Reason for Refusal: A Refill not appropriate DULoxetine (CYMBALTA) 60 mg capsule [Pharmacy Med Name: DULOXETINE HCL DR 60 MG CAP] 90 capsule 0 Sig: TAKE 1 CAPSULE BY MOUTH DAILY AT BEDTIME. PATIENT SHOULD START ON OCTOBER 04, 2023. Refused By: RAYMOND KEMP Reason for Refusal: A Refill not appropriate Raymond Kemp APRN.CNP Not certain why they are asking for the dx codes. I see them in the prescription. Not sure if they need them in another area. Source : electronic from pharmacy requesting refill. Delivery : e-script Requested Prescriptions Pending Prescriptions Disp Refills DULoxetine (CYMBALTA) 30 mg capsule [Pharmacy Med Name: DULOXETINE HCL DR 30 MG CAP] 201 capsule 1 Sig: TAKE 1 CAPSULE BY MOUTH DAILY AT BEDTIME FOR 7 DAYS, THEN 2 CAPSULES DAILY AT BEDTIME. DULoxetine (CYMBALTA) 60 mg capsule [Pharmacy Med Name: DULOXETINE HCL DR 60 MG CAP] 90 capsule 0 Sig: TAKE 1 CAPSULE BY MOUTH DAILY AT BEDTIME. PATIENT SHOULD START ON OCTOBER 04, 2023. DX : Patient last seen 09-20-2023 Next Appointment : 11-29-2023 Anusha Lovett documented in this encounter [facility] 09-20-2023 Miscellaneous Notes The following approved medication requests have been transmitted electronically. Requested Prescriptions Signed Prescriptions Disp Refills hydrocortisone 0.5 % cream 56.8 g 0 Sig: APPLY TO AFFECTED AREA TWO TIMES A DAY FOR 7 DAYS. Authorizing Provider: RAYMOND KEMP APRN.CNP Pharmacy sent script back with changes. Source : electronic from pharmacy requesting refill. Delivery : e-script Requested Prescriptions Pending Prescriptions Disp Refills hydrocortisone 0.5 % cream [Pharmacy Med Name: HYDROCORTISONE 0.5% CREAM] 56.8 g 0 Sig: APPLY TO AFFECTED AREA TWO TIMES A DAY FOR 7 DAYS. DX : Patient last seen 09-20-2023 Next Appointment : 11-29-2023 Anusha Lovett documented in this encounter [facility] 09-20-2023 Instructions Raymond Kemp APRN.CNP - 09/20/2023 2:39 PM EST PLAN: - Continue Zeposia - Keep appointments as scheduled with PT and ENGINEERING INSPECTION ASSISTANT (cognitive therapy), PCP - Schedule: - pelvic floor therapy - OCT and ophthalmology - reschedule with [facility] - Continue Cymbalta 60 mg QHS - Continue taking vitamin b12 - Paperwork signed in office and returned to patient - Follow up in 3 months as scheduled - sent powder and cream to your pharmacy Make sure you eat protein when you have high sugar foods (like candy) but also when you eat fruit. Fruit is really good for you but has high levels of sugar (the good kind though), so by eating protein with your sugary foods you can keep your blood sugar more stable documented in this encounter [facility] 09-20-2023 History of Present illness Narrative Images from the original note were not included. [facility] FOLLOWUP/ESTABLISHED PATIENT VISIT PRINCIPAL NEUROLOGIC DIAGNOSIS: Multiple Sclerosis DISEASE SUMMARY Date of onset: 03/2019 Date of diagnosis of MS: 03/2020 Disease course at onset: Relapsing-Remitting Current disease course: Relapsing-Remitting Previous disease therapies: - IVMP x 3 08/2023 (worsening LUE weakness and numbness) Current disease therapy: Zeposia (Jul 2020-Present) Most recent MRI brain: 08/13/23 ([facility]), 06/17/2021 Most recent MRI cervical spine: 08/28/23 ([facility]) Most recent MRI thoracic spine: 08/28/23 ([facility]) CSF: NA JCV serology result and date: 03/2020 negative Brief Disease History: - Mar 2019 bilateral leg weakness, urinary retention - Jul 2019 hyperacute onset L arm numbness and subtle weakness(dropping items) occurring when lifting a duffle bag - Jul 2019-February 2020 noticed balance difficulty CHIEF COMPLAINT: paperwork Usual treating team: David/ Isabel-> Stephan/ Pedro The patient is unaccompanied. The patient was last seen 08/30/23, currently taking Zeposia. Since the patient's last visit the patient reports overall feeling stable. Issues with current therapy: Tolerating medication without side effects. INTERVAL HISTORY: Feels good Made this appointment as she needs paperwork signed agreeing with her need for a live in aide Neuro-QoL Functions (higher=better functioning) Flowsheet [facility] Office Visit from 07/19/[address] [facility] Office Visit from 04/18/[address] [facility] Office Visit from 10/27/[address] [facility] Upper Extremity Domain T Score 44.53 42.12 42.58 Lower Extremity Domain T Score 40.35 34.04 36.94 Cognitive Function Domain T Score 48.64 46.37 52.55 Positive Affect Well Being T Score -- -- -- Ability To Participate In Social Roles T Score 44.12 33.38 37.21 Satisfaction With Social Roles T Score 41.34 36.98 40.61 Neuro-QoL Symptoms (higher=worse symptoms) Flowsheet [facility] Office Visit from 07/19/[address] [facility] Office Visit from 04/18/[address] [facility] Office Visit from 10/27/[address] [facility] Sleep Domain T Score 57.7 61.86 67.68 Fatigue Domain T Score 56.21 58.38 50.45 Anxiety Domain T Score 48.72 48.87 56.09 Depression Domain T Score 46.25 47.97 55.43 Stigma Domain T Score 36.56 51.87 44.69 Emotional Behavior Dyscontrol T Score -- -- -- has a past medical history of Cocaine use, Depression, Multiple sclerosis ([facility]), Smoking, and Stroke (cerebrum) ([facility]). has a current medication list which includes the following prescription(s): cyanocobalamin, duloxetine, [START ON 10/04/2023] duloxetine, famotidine, atorvastatin, nicotine, nicotine polacrilex, pregabalin, ergocalciferol (vitamin d2), baclofen, biotene dry mouth oral rinse, polyethylene glycol 3350, lidocaine, acetaminophen, zeposia, lidocaine hcl, nystatin, hydrocortisone, and iv contrast. EXAM: BP 128/83 Pulse 70 Wt 98.3 kg (216 lb 11.4 oz) LMP 04/28/2020 (Within Years) BMI 41.99 kg/m Multiple Sclerosis Performance Test Flowsheet Row Office Visit from 07/19/[address] [facility] Office Visit from 04/18/[address] [facility] Processing Speed Total Number Correct 45 46 Low-contrast letter acuity test-2.5 percent opacity -- 24 Low-contrast letter acuity test-100 percent opacity -- 57 Dominant hand -- -- MDT Left Hand Time 24.54 27.5 MDT Right Hand Time 28.79 23.69 Walking Speed Test (25 feet) -- 8.56 General Appearance: well appearing, in no acute distress Mental status evaluation during the interview and examination showed normal level of consciousness, orientation, language, memory, praxis, and higher intellectual function Affect: Normal RESULTS: CBC + Diff Component Value Date WBC 7.71 07/19/2023 HB 13.3 07/19/2023 HCT 43.7 07/19/2023 PLT 329 07/19/2023 ABSLYMPH 0.85 (L) 07/19/2023 Vitamin D Component Value Date VITD25 23.2 (L) 07/19/2023 CMP Component Value Date AST 15 08/30/2023 GLUC 93 08/30/2023 BUN 14 08/30/2023 CREAT 0.61 08/30/2023 NA 142 08/30/2023 K 4.2 08/30/2023 CHLOR 105 08/30/2023 ALT 25 08/30/2023 Hemoglobin A1C Date Value Ref Range Status 08/30/2023 6.3 (H) 4.3 - 5.6 % Final Comment: [place] [employer] guidelines indicate that patients with HgbA1c in the range 5.7-6.4% are at increased risk for development of diabetes, and intervention by lifestyle modification may be beneficial. HgbA1c greater or equal to 6.5% is considered diagnostic of diabetes. TSH Date Value Ref Range Status 08/30/2023 1.810 0.270 - 4.200 mIU/L Final Vitamin B12 Date Value Ref Range Status 08/30/2023 371 232 - 1,245 pg/mL Final MRI Results: - MRI brain 08/28/23 ([facility]): There is no enhancement after contrast administration. There are foci of T2/FLAIR hyperintensity in the subcortical white matter and also in the right and left periventricular white matter involving the corpus collosum. 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 - MRI cervical spine 08/28/23 ([facility]): There is persistent area of demyelination in the left cord at C2-C3 unchanged since the prior study [07/2021]. There are no new areas of signal abnormality. There is no abnormal enhancement after contrast. There is multilevel spondylosis of the cervical spine. - MRI thoracic spine 08/28/23 ([facility]): Limited due to motion... the spinal cord is normal in course and caliber without areas of signal abnormality. There is no abnormal enhancement. There is no evidence of central canal narrowing. MRIs as above were reviewed by Dr. Ellen Rothman - no definite demyelinating lesion in the thoracic spine, no abnormal intraparenchymal gadolinium enhancement; T2 hyperintense lesion at C3, no Gde+; brain stable compared to 06/26, no abnormal gde+ ASSESSMENT: Bryan Cruz is a 52 year old female with Multiple Sclerosis. She is currently on Zeposia as DMT which she continues to tolerate well. She is radiographically stable on b/c/t as of August 2023. She denies any new neurological symptoms. She presents today to have paperwork signed stating we are in agreement with the need for a live in aide (see letters written after last visit 08/30/23). Plan as outlined at last visit, she is to follow up in 3 months or sooner if clinically indicated. PLAN: - Continue Zeposia - Keep appointments as scheduled with PT and ENGINEERING INSPECTION ASSISTANT (cognitive therapy), PCP - Schedule: - pelvic floor therapy - OCT and ophthalmology - reschedule with [facility] - Continue Cymbalta 60 mg QHS - Paperwork signed in office and returned to patient - Follow up in 3 months as scheduled No orders found for this visit on 09/20/23. Follow-up: In 3 months at [facility] or Virtual Visit with [facility] APC I spent a total of 29 minutes on the date of the service which included preparing to see the patient, [id number] patient care, completing clinical documentation, obtaining and/or reviewing separately obtained history, performing a medically appropriate examination, and counseling and educating the patient/family/caregiver. Raymond Kemp APRN.[facility] documented in this encounter [facility] 09-20-2023 Note HNO ID: [id number] Author: RAYMOND KEMP APRN.SHAYLA Service: ? Author Type: Nurse Practitioner Type: Progress Notes Filed: 09/20/2023 14:55 Note Text: [facility] FOLLOWUP/ESTABLISHED PATIENT VISIT PRINCIPAL NEUROLOGIC DIAGNOSIS: Multiple Sclerosis DISEASE SUMMARY Date of onset: 03/2019 Date of diagnosis of MS: 03/2020 Disease course at onset: Relapsing-Remitting Current disease course: Relapsing-Remitting Previous disease therapies: - IVMP x 3 08/2023 (worsening LUE weakness and numbness) Current disease therapy: Zeposia (Jul 2020-Present) Most recent MRI brain: 08/13/23 ([facility]), 06/17/2021 Most recent MRI cervical spine: 08/28/23 ([facility]) Most recent MRI thoracic spine: 08/28/23 ([facility]) CSF: NA JCV serology result and date: 03/2020 negative Brief Disease History: - Mar 2019 bilateral leg weakness, urinary retention - Jul 2019 hyperacute onset L arm numbness and subtle weakness(dropping items) occurring when lifting a duffle bag - Jul 2019-February 2020 noticed balance difficulty CHIEF COMPLAINT: paperwork Usual treating team: David/ Isabel-> Stephan/ Pedro The patient is unaccompanied. The patient was last seen 08/30/23, currently taking Zeposia. Since the patient's last visit the patient reports overall feeling stable. Issues with current therapy: Tolerating medication without side effects. INTERVAL HISTORY: Feels good Made this appointment as she needs paperwork signed agreeing with her need for a live in aide Neuro-QoL Functions (higher=better functioning) Flowsheet Row Office Visit from 07/19/[address] [facility] Office Visit from 04/18/[address] [facility] Office Visit from 10/27/[address] [facility] Upper Extremity Domain T Score 44.53 42.12 42.58 Lower Extremity Domain T Score 40.35 34.04 36.94 Cognitive Function Domain T Score 48.64 46.37 52.55 Positive Affect Well Being T Score -- -- -- Ability To Participate In Social Roles T Score 44.12 33.38 37.21 Satisfaction With Social Roles T Score 41.34 36.98 40.61 Neuro-QoL Symptoms (higher=worse symptoms) Flowsheet [facility] Office Visit from 07/19/[address] [facility] Office Visit from 04/18/[address] [facility] Office Visit from 10/27/[address] [facility] Sleep Domain T Score 57.7 61.86 67.68 Fatigue Domain T Score 56.21 58.38 50.45 Anxiety Domain T Score 48.72 48.87 56.09 Depression Domain T Score 46.25 47.97 55.43 Stigma Domain T Score 36.56 51.87 44.69 Emotional Behavior Dyscontrol T Score -- -- -- has a past medical history of Cocaine use, Depression, Multiple sclerosis ([facility]), Smoking, and Stroke (cerebrum) ([facility]). has a current medication list which includes the following prescription(s): cyanocobalamin, duloxetine, [START ON 10/04/2023] duloxetine, famotidine, atorvastatin, nicotine, nicotine polacrilex, pregabalin, ergocalciferol (vitamin d2), baclofen, biotene dry mouth oral rinse, polyethylene glycol 3350, lidocaine, acetaminophen, zeposia, lidocaine hcl, nystatin, hydrocortisone, and iv contrast. EXAM: BP 128/83 Pulse 70 Wt 98.3 kg (216 lb 11.4 oz) LMP 04/28/2020 (Within Years) BMI 41.99 kg/m? Multiple Sclerosis Performance Test Flowsheet [facility] Office Visit from 07/19/[address] [facility] Office Visit from 04/18/[address] [facility] Processing Speed Total Number Correct 45 46 Low-contrast letter acuity test-2.5 percent opacity -- 24 Low-contrast letter acuity test-100 percent opacity -- 57 Dominant hand -- -- MDT Left Hand Time 24.54 27.5 MDT Right Hand Time 28.79 23.69 Walking Speed Test (25 feet) -- 8.56 General Appearance: well appearing, in no acute distress Mental status evaluation during the interview and examination showed normal level of consciousness, orientation, language, memory, praxis, and higher intellectual function Affect: Normal RESULTS: CBC + Diff Component Value Date WBC 7.71 07/19/2023 HB 13.3 07/19/2023 HCT 43.7 07/19/2023 PLT 329 07/19/2023 ABSLYMPH 0.85 (L) 07/19/2023 Vitamin D Component Value Date VITD25 23.2 (L) 07/19/2023 CMP Component Value Date AST 15 08/30/2023 GLUC 93 08/30/2023 BUN 14 08/30/2023 CREAT 0.61 08/30/2023 NA 142 08/30/2023 K 4.2 08/30/2023 CHLOR 105 08/30/2023 ALT 25 08/30/2023 Hemoglobin A1C Date Value Ref Range Status 08/30/2023 6.3 (H) 4.3 - 5.6 % Final Comment: [place] [employer] guidelines indicate that patients with HgbA1c in the range 5.7-6.4% are at increased risk for development of diabetes, and intervention by lifestyle modification may be beneficial. HgbA1c greater or equal to 6.5% is considered diagnostic of diabetes. TSH Date Value Ref Range Status 08/30/2023 1.810 0.270 - 4.200 mIU/L Final Vitamin B12 Date Value Ref Range Status 08/30/2023 371 232 - 1,245 pg/mL Final MRI Results: - MRI brain 08/28/23 ([facility]): There is no enhancement after contrast administration. There are foci of T2/FLAIR hyperintensity in the subcortical white matter and also in the right (more content not included)... [facility] 08-13-2023 Hospital Discharge instructions Jeffery Cantu DO - 08/13/2023 4:46 PM EST You will need to return to the outpatient clinic for 2 more doses of 1 g of IV Solu-Medrol. First dose will be today August 13, second dose will be tomorrow August 14 and third dose will be August 15. Please make sure you take Pepcid along with it. Please follow-up with your neurologist as soon as possible. Return if you have any worsening symptoms. The following attachments cannot be sent through Care Everywhere.Multiple Sclerosis (Ind[place]ian)documented in this encounter [facility] 07-19-2023 History of Present illness Narrative Bryan Cruz is a 52 year old female Chief complaint: Establish Care (Mammogram order ) Subjective HPI: Comes with her peer support. H/o Multiple sclerosis Dx 03/2020, relapsing-remitting, treated with Zeposia. Follow up Neurology, last appointment 04/2023 Smoker 5 cig/day. Hyperlipidemia Mood disorder, h/o SI Prior cocaine use per record. Multiple no shows to OBGyn appts. C/o pain in breast in the lower area bilaterally for past 1.5 month, daily, continuous, worse with nothing, treated with nothing. No trauma. No breast surgeries. No discharge. NO prior mammogram in record/ 05/21/2023 05/21/2023 4 Pregabalin 300 Mg Capsule 60.00 30 Ra But [id number] [place] (1492) 0 PMDP on lyrica per neurology. Review of Systems Constitutional: Negative for fever and unexpected weight change. Respiratory: Negative for cough and shortness of breath. Cardiovascular: Negative for chest pain. Gastrointestinal: Negative for abdominal pain, nausea and vomiting. Musculoskeletal: Negative for arthralgias. Neurological: Negative for headaches. Objective LMP 04/28/2020 (Within Years) BMI Readings from Last 3 Encounters: 04/18/23 : 39.58 kg/m 08/17/22 : 40.18 kg/m 10/27/21 : 40.71 kg/m Last Wt 04/18/23 : 91.2 kg (201 lb) 08/17/22 : 92.5 kg (204 lb) 10/27/21 : 93 kg (205 lb) Last BP 04/18/23 : 146/76 08/17/22 : 143/65 10/27/21 : 128/76 Physical Exam Exam conducted with a melter assistant present (Danyell Wong). Constitutional: Appearance: Normal appearance. HENT: Head: Atraumatic. Pulmonary: Effort: Pulmonary effort is normal. Chest: Breasts: Right: Tenderness (lower quandrants bilaterally.) present. No swelling, bleeding, inverted nipple, mass, nipple discharge or skin change. Left: Tenderness present. No swelling, bleeding, inverted nipple, mass, nipple discharge or skin change. Lymphadenopathy: Upper Body: Right upper body: No supraclavicular, axillary or pectoral adenopathy. Left upper body: No supraclavicular, axillary or pectoral adenopathy. Neurological: General: No focal deficit present. Mental Status: She is alert. Mental status is at baseline. Psychiatric: Mood and Affect: Mood normal. Results for orders placed or performed in visit on 08/17/22 BASIC METABOLIC PNL Result Value Ref Range Glucose 103 (H) 74 - 99 mg/dL BUN 9 7 - 21 mg/dL Creatinine 0.58 0.58 - 0.96 mg/dL Sodium 141 136 - 144 mmol/L Potassium 4.3 3.7 - 5.1 mmol/L Chloride 102 97 - 105 mmol/L CO2 28 22 - 30 mmol/L Anion Gap 11 9 - 18 mmol/L Calcium, Total 9.0 8.5 - 10.2 mg/dL Estimated Glomerular Filtration Rate 109 >=60 mL/min/1.73m CBC + DIFF Result Value Ref Range WBC 10.55 3.70 - 11.00 k/uL RBC 4.73 3.90 - 5.20 m/uL Hemoglobin 14.5 11.5 - 15.5 g/dL Hematocrit 44.7 36.0 - 46.0 % MCV 94.5 80.0 - 100.0 fL MCH 30.7 26.0 - 34.0 pg MCHC 32.4 30.5 - 36.0 g/dL RDW-CV 12.4 11.5 - 15.0 % Platelet Count 423 (H) 150 - 400 k/uL MPV 11.0 9.0 - 12.7 fL Neutrophils % 76.2 % Abs Neut 8.05 (H) 1.45 - 7.50 k/uL Lymphocytes % 9.3 % Abs Lymph 0.98 (L) 1.00 - 4.00 k/uL Monocytes % 9.6 % Abs [place] 1.01 (H) <0.87 k/uL Eosinophils % 4.1 % Abs Eosin 0.43 <0.46 k/uL Basophils % 0.2 % Abs Baso <0.03 <0.11 k/uL Immature Granulocytes % 0.6 % Abs Immature Gran 0.06 <0.10 k/uL NRBC 0.0 /100 WBC Absolute nRBC <0.01 <0.01 k/uL Diff Type Auto TYPE AND SCREEN,30 DAY Result Value Ref Range ABO AB Rh(D) Positive Antibody Screen Negative HIstorical Ab Scr Status NEGATIVE CONFIRM BLOOD TYPE Result Value Ref Range ABO AB Rh(D) Positive No results found for: HBA1C , HBA0 HBA0=Estimated average glucose No results found for: CHOL , HDL , LDL , TG Lab Results Component Value Date GLUC 103 (H) 08/17/2022 BUN 9 08/17/2022 CREAT 0.58 08/17/2022 NA 141 08/17/2022 K 4.3 08/17/2022 CHLOR 102 08/17/2022 CO2 28 08/17/2022 CA 9.0 08/17/2022 No results found for: PCRAT , UALBCR PCRAT=Protein Creatinine Ratio; UABCR=Albumin Creat Ratio No results found for: GCAMP , GCCHLAMPHAR , CLAMPL , HBSAG , HEPSABQ , AHBSQ , HEPBCOTOL , HEPCABEIA , [id number] , SYPHT Impression/Recommendations Social History Social History Narrative Not on file Bryan Cruz is a 52 year old female There is no height or weight on file to calculate BMI. - chronic back pain, requests refill of lidocaine patch. - Multiple sclerosis Dx 03/2020, relapsing-remitting, treated with Zeposia. Follow up Neurology, last appointment 04/2023 - Every day smoker 5 cig/day. - Hyperlipidemia - Mood disorder, h/o SI - Prior cocaine use per record. - Multiple no shows to OBGyn appts. - Bilateral breast pain lower quadrants for past 1.5 month. Exam with tenderness but no masses or other abnormalities. No prior mammogram in record/ Plan: Start acetaminophen as needed for pain. Order Diagnostic mammmo Counseling about breast pain. Diagnoses and all orders for this visit: Chronic bilateral low back pain without sciatica - lidocaine (LIDODERM) 5 %; Apply 1 Patch as directed once daily. to affected area. Remove patch after 12 hours. Breast pain in female - [facility]; Future - acetaminophen (TYLENOL EXTRA STRENGTH) 500 mg tablet; Take 2 tablets by mouth three times a day as needed for pain. Multiple sclerosis (HCC) Current every day smoker Morbid obesity with BMI of 40.0-44.9, adult ([facility]) Return in about 3 months (around 10/18/2023) for PHYSICAL. I spent a total of 24 minutes on the date of the service which included preparing to see the patient, [id number] patient care, completing clinical documentation, obtaining and/or reviewing separately obtained history, performing a medically appropriate examination, counseling and educating the patient/family/caregiver, and ordering medications, tests, or procedures. Sandro Hinojosa MD documented in this encounter [facility] 07-19-2023 Instructions Raymond Kemp APRN.COMPENSATION CONSULTING MANAGER - 07/19/2023 3:07 PM EST GET MRIS GET OCT EYE TEST GET LABS Refills sent Follow up in 3 months Increase baclofen dosing Schedule with health psychology Schedule with ophthalmology documented in this encounter [facility] 07-19-2023 History of Present illness Narrative Images from the original note were not included. [facility] FOLLOWUP/ESTABLISHED PATIENT VISIT PRINCIPAL NEUROLOGIC DIAGNOSIS: Multiple Sclerosis DISEASE SUMMARY Date of onset: MAR-2019 Date of diagnosis of MS: MAR-2020 Disease course at onset: Relapsing-Remitting Current disease course: Relapsing-Remitting Previous disease therapies: N/A Current disease therapy: Zeposia (Jul 2020-Present) Most recent MRI brain: 06/17/2021 Most recent MRI cervical spine: 06/17/2021 Most recent MRI thoracic spine: 10/2020 CSF: NA JCV serology result and date: 03/2020 negative Brief Disease History: - Mar 2019 bilateral leg weakness, urinary retention - Jul 2019 hyperacute onset L arm numbness and subtle weakness(dropping items) occurring when lifting a duffle bag - Jul 2019-February 2020 noticed balance difficulty CHIEF COMPLAINT: Follow-up on MS disease modifying therapy Usual treating team: David/ Isabel-> Stephan/ Pedro The patient is accompanied by her friend. The patient was last seen 04/18/23, currently taking Zeposia. Since the patient's last visit the patient reports overall feeling worse. Issues with current therapy: Tolerating medication without side effects. INTERVAL HISTORY: Denies missed doses of Zeposia 07/09 developed new symptoms: Began losing feeling in bilateral lower arms, fingers Seems to be worsening since then She has been having worse headaches Bilateral leg numbness (thighs) seems to be worsening Vision is worse - I'm going blind and requests glasses. Can have some light sensitivity and it makes her headaches worse, can have nausea. 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 Office Visit from 10/27/[address] [facility] Office Visit from 07/13/[address] [facility] Upper Extremity Domain T Score 42.12 42.58 47.21 Lower Extremity Domain T Score 34.04 36.94 37.53 Cognitive Function Domain T Score 46.37 52.55 45.93 Positive Affect Well Being T Score -- -- -- Ability To Participate In Social Roles T Score 33.38 37.21 44.12 Satisfaction With Social Roles T Score 36.98 40.61 50.16 Neuro-QoL Symptoms (higher=worse symptoms) Flowsheet [facility] Office Visit from 04/18/[address] [facility] Office Visit from 10/27/[address] [facility] Office Visit from 07/13/[address] [facility] Sleep Domain T Score 61.86 67.68 68.05 Fatigue Domain T Score 58.38 50.45 50.45 Anxiety Domain T Score 48.87 56.09 61.92 Depression Domain T Score 47.97 55.43 56.92 Stigma Domain T Score 51.87 44.69 52.21 Emotional Behavior Dyscontrol T Score -- -- -- has a past medical history of Cocaine use, Depression, Multiple sclerosis (HCC), Smoking, and Stroke (cerebrum) (HCC). has a current medication list which includes the following prescription(s): zeposia, lidocaine hcl, atorvastatin, iv contrast, sertraline, pregabalin, ergocalciferol (vitamin d2), baclofen, biotene dry mouth oral rinse, polyethylene glycol 3350, lidocaine, and acetaminophen. EXAM: BP 112/56 Pulse 71 Wt 97.5 kg (215 lb) LMP 04/28/2020 (Within Years) BMI 42.34 kg/m Multiple Sclerosis Performance Test Flowsheet Row Office Visit from 04/18/[address] [facility] Office Visit from 10/27/[address] [facility] Processing Speed Total Number Correct 46 40 Low-contrast letter acuity test-2.5 percent opacity 24 38 Low-contrast letter acuity test-100 percent opacity 57 60 Dominant hand -- -- MDT Left Hand Time 27.5 -- MDT Right Hand Time 23.69 -- Walking Speed Test (25 feet) 8.56 -- General Appearance: well appearing, in no acute distress Mental status evaluation during the interview and examination showed normal level of consciousness, orientation, language, memory, praxis, and higher intellectual function Affect: Anxious Extraocular movements: full, without EVIN Facial movements: Intact bilaterally Speech: normal Muscle strength (#/5): Right Left Upper Extremity: Deltoids 5 5- Biceps 5 5- Triceps 4 4 Admeasurer 4 4 Dorsal interossei 4 4 Lower extremity: Iliopsoas 4- 4 Quadriceps 4 4 Hamstrings 4 4 Tibialis anterior 4 4 Gastrocnemius 4 4 Coordination: Upper extremity dexterity and rapid movements: Normal bilaterally Finger-nose: no dysmetria; coordination intact Heel-smith: limited by pyramidal weakness Standard gait: antalgic. Assistive device: independent RESULTS: - see scanned documents for labs 06/2023 (vitamin D, CBC diff, CMP) CBC + Diff Component Value Date WBC 10.55 08/17/2022 HB 14.5 08/17/2022 HCT 44.7 08/17/2022 PLT 423 (H) 08/17/2022 ABSLYMPH 0.98 (L) 08/17/2022 CMP Component Value Date GLUC 103 (H) 08/17/2022 BUN 9 08/17/2022 CREAT 0.58 08/17/2022 NA 141 08/17/2022 K 4.3 08/17/2022 CHLOR 102 08/17/2022 ASSESSMENT: Bryan Cruz is a 52 year old female with Multiple Sclerosis, currently on Zeposia for DMT. She denies any missed doses, however reports new and worsening neurological symptoms. She reports in the last 2-4 weeks new onset UE numbness and tingling, return of urinary retention, increased pain, increased headaches, and slowly declining visual acuity. While this can represent new MS activity, will obtain updated MRIs prior to steroid treatment as physical exam remains largely stable. Will obtain OCT today and labs to evaluate for infectious/metabolic etiology to symptoms. Symptomatically, will increase baclofen. Remainder of plan as below and as outlined in previous visits. She is to follow up in 3 months or sooner if clinically indicated. PDMP website checked and validated. All prescriptions have been APPROPRIATELY filled. No suspicious activity was identified. 07/19/2023 by Raymond Kemp APRN.CNP MRI of the brain and/or spinal cord is being ordered to evaluate for efficacy of multiple sclerosis (MS) disease modifying therapy. Disease activity in MS is often not immediately detectable on history or examination, but is sensitively identified on MRI. If identified, new or active MS lesions on MRI may represent suboptimal response to MS therapy, and would change medical management. PLAN: - Continue Zeposia for now - MRI brain/cervical/thoracic (faxed to requested facility AND paper copies given) - OCT today - Labs today, urinalysis/culture today - Baclofen - Consult ophthalmology - Schedule with health psychology - Follow up in 3 months Office Visit on 07/19/23 MRI THORACIC SPINE WO/W IVCON URINALYSIS, WITH MICROSCOPIC CONSULT TO OPHTHALMOLOGY URINE CULTURE Patient Health Education Discussed at Visit: Emotional Health/Wellness, Risks and Common side effects of MS medications, Stress management, Stretching, and Vitamin D supplementation Follow-up: In 3 months at [place] or Virtual Visit with [facility] I spent a total of 54 minutes on the date of the service which included preparing to see the patient, [id number]-fkbb patient care, completing clinical documentation, obtaining and/or reviewing separately obtained history, performing a medically appropriate examination, counseling and educating the patient/family/caregiver, and ordering medications, tests, or procedures. Raymond Kemp APRN.CNP [facility] documented in this encounter [facility] 06-27-2023 Miscellaneous Notes Lab orders replaced Raymond Kemp APRN.CNP June 27, 2023 9:01 AM Jeromy called back regarding patient lab orders No active orders in the system Will route to provider to see what labs are needed and will then fax the orders once orders have been placed Sin Call Name of caller : JEROMY Relationship to patient: [facility] Return call phone number : [phone] hit option 3 two times Reason for call : Other : Labs Brief description of concern : Patient is requesting labs that are needed to be faxed to: [phone] documented in this encounter [facility] 06-12-2023 History of Present illness Narrative [facility] Refill Assessment Medication(s): Zeposia Patient's current medication list and adherence status to current therapy were reviewed by Specialty Pharmacy clinical pharmacist to identify any new drug interactions or non-compliance to therapy. Therapy continues to be appropriate for disease, patient response, and medical condition. Verification of therapeutic benefit and effectiveness with current therapy was completed. Adverse events, barriers in adherence, and side effects were assessed and addressed if applicable. Will proceed with refill with no changes in therapy - patient progressing towards achieving therapeutic goals based on medication-specific laboratory parameters, disease state markers and outcomes. Paulo Corey, CarmenD Pharmacist, [facility] Specialty Chicken And Fish Butcher Assessment Patient confirmed: Yes Med/dose confirmed: Yes Supplies needed: No supplies needed Missed doses: No Estimated days supply on hand: 0 Copay amount: 0 Payment confirmed: Yes Delivery method: FedEx Signature required: Waived on patient request Delivery address: [address] [place] [address], [id number] Delivery date: 06/14/23 Questions or concerns for the pharmacist?: No [facility] Specialty Pharmacy Visit Assessment - Neurology: Assessment to use: Refill Vaccination Assessment: Date of influenza vaccination reminder: 05/23/2023 Date of most recent vaccination assessment: 05/23/2023 Refill Assessment: Assessment of injection issues or necrosis at injection sites: N/A Screening for infection: Yes Adverse reactions and mitigation: Yes Drug specific assessments, as appropriate: Yes Additional Assessment: S/Sx of relapse: No S/Sx of progression to secondary progressive disease: No Nidhi Katz documented in this encounter [facility] 05-24-2023 Miscellaneous Notes Called and spoke with patient; scheduled as directed below. Teagan Jones May 24, 2023 3:54 PM Spoke with patient as she was last seen in ov with Dr. Rothman on 04/18/23, patient was to follow up in 3 months. Today's appointment cancelled and is to be rescheduled in 3 months, routed to scheduling. PSS-Please contact patient and schedule Follow Up with Dr. Rothman in July 2023. -Patient states she has since moved since last ov and requested for address to be changed, patient currently homeless and is waiting for housing through [facility]. Patient is currently staying with a friend (?) and has asked for her address to be updated to this friends (?) address in [place], address updated. -Patient states she has left behind her orders for labs and MRI's at previous address and is need of new orders. MRI orders faxed to [facility] in [place], lab orders faxed to [facility] at patients request. -Patient is inquiring if Dr. Rothman would draft a Emotional Support Animal Letter, states she has a dog and is need of letter to give to [facility]. In addition to GISELLE letter, patient is requesting a letter stating that she is in need of a swimming pool salesperson as she frequently falls due to MS diagnosis. Left voice message for patient to contact office, if/when patient returns call, please inquire if she had MRI of Brain & C-Spine, that was ordered on 04/18/23, completed at a non [facility] imaging center so that Images and reports can be requested for OV with Dr. Rothman on 05/24/23. documented in this encounter [facility] 04-18-2023 Instructions Ellen Rothman MD - 04/18/2023 10:21 AM EDT It was a pleasure to see you back today. The MS seems stable by your report but I want to check on your MRIs to monitor further. We also have more work to do on managing your symptoms. I have put some plans below for helping with constipation, cooling to help with fatigue and managing mood. The goal is to have a comfortable bowel movement either every day, every other day or every 2-3 days For regular bowel movements you need fluid (1 -2 quarts a day), fiber (20-30 grams a day) and activity. 1/3 cup fiber one, all bran or 100% bran buds gives you HALF the fiber you need for the day. [place] foods, spicy foods, or food intolerance's (lactose) may cause loose stool and may result in involuntary bowel. Must eat regularly for regular bowel habits. Plan for a bowel movement each day about hour after eating or drinking something warm after waking up, can try hot/warm tea, hot/warm water with lemon, etc. (peristaltic activity is increased at this time) Sit on the toilet for about 10 minutes and try to have a bowel movement. Use a stool, books, squatty pot, ect to get your knees level with or above your belly button to be in the best position.You may want to gently rock back and forth on the toilet. If nothing happens, leave the bathroom and try again later. It may take 2-3 months to develop a pattern for bowel habits! I want you to get a cooling vest to help with sweating and heat. [facility] gives these out for free. Go online and apply at: [email or web address] coordinator [email or web address]/ I also want to get you back on Zoloft for mood and get you hooked up with our [facility] pyschology team to help with mood. documented in this encounter [facility] 04-18-2023 History of Present illness Narrative Images from the original note were not included. [facility] FOLLOWUP/ESTABLISHED PATIENT VISIT PRINCIPAL NEUROLOGIC DIAGNOSIS: Multiple Sclerosis DISEASE SUMMARY Date of onset: MAR-2019 Date of diagnosis of MS: MAR-2020 Disease course at onset: Relapsing-Remitting Current disease course: Relapsing-Remitting Previous disease therapies: N/A Current disease therapy: Zeposia (Jul 2020-Present) Most recent MRI brain: 06/17/2021 Most recent MRI cervical spine: 06/17/2021 Most recent MRI thoracic spine: 10/2020 CSF: NA JCV serology result and date: 03/2020 negative Brief Disease History: -Mar 2019 bilateral leg weakness, urinary retention -Jul 2019 hyperacute onset L arm numbness and subtle weakness(dropping items) occurring when lifting a duffle bag -Jul 2019-February 2020 noticed balance difficulty CHIEF COMPLAINT: Follow-up on MS disease modifying therapy and MS symptom management INTERVAL HISTORY: At last visit she was having some trouble with housing. Also she was noticing worsening balance with falls, continued whole body pain, intermittent episodes of vision loss, blurry vision, and diplopia. She was to discuss her mood medication with pyschology to consider switch TCA, SNRI to help pain and referred to neuro-ophthalmology. It has been >1 year since this visit. Today she reports since last visit she had drug relapse again but now 2 months sober. She went back into her unhealthy romantic relationship but has since left again. Through all of this she reports she has been taking her medications and not having side effects but lost her therapist and PCP. She reports missing 2 doses of Zeposia in the last month. Presently she attending confucianism often and is getting baptized on Apr 25. She denies new neurological symptoms today. Chronic symptoms: -L arm numbness -Imbalance -Constipation -Fatigue Refer to patient-entered data. Usual treating team: David/ Isabel-> Stephan/ Pedro The patient is unaccompanied. The patient was last seen 10/27/2021, currently taking Zeposia. Since the patient's last visit the patient reports overall feeling stable. Issues with current therapy: Tolerating medication without side effects. Neuro-QoL Functions (higher=better functioning) Flowsheet [facility] Office Visit from 04/18/[address] [facility] Office Visit from 10/27/[address] [facility] Office Visit from 07/13/[address] [facility] Upper Extremity Domain T Score 42.12 42.58 47.21 Lower Extremity Domain T Score 34.04 36.94 37.53 Cognitive Function Domain T Score 46.37 52.55 45.93 Positive Affect Well Being T Score -- -- -- Ability To Participate In Social Roles T Score 33.38 37.21 44.12 Satisfaction With Social Roles T Score 36.98 40.61 50.16 Neuro-QoL Symptoms (higher=worse symptoms) Flowsheet [facility] Office Visit from 04/18/[address] [facility] Office Visit from 10/27/[address] [facility] Office Visit from 07/13/[address] [facility] Sleep Domain T Score 61.86 67.68 68.05 Fatigue Domain T Score 58.38 50.45 50.45 Anxiety Domain T Score 48.87 56.09 61.92 Depression Domain T Score 47.97 55.43 56.92 Stigma Domain T Score 51.87 44.69 52.21 Emotional Behavior Dyscontrol T Score -- -- -- has a past medical history of Cocaine use, Depression, Multiple sclerosis ([facility]), Smoking, and Stroke (cerebrum) ([facility]). has a current medication list which includes the following prescription(s): zeposia, hydroxyzine pamoate, lidocaine hcl, atorvastatin, baclofen, pregabalin, sertraline, iv contrast, iv contrast, biotene dry mouth oral rinse, and polyethylene glycol 3350. EXAM: BP 146/76 Pulse 74 Wt 91.2 kg (201 lb) LMP 04/28/2020 (Within Years) BMI 39.58 kg/m Multiple Sclerosis Performance Test Flowsheet [facility] Office Visit from 04/18/[address] [facility] Office Visit from 10/27/[address] [facility] Processing Speed Total Number Correct 46 40 Low-contrast letter acuity test-2.5 percent opacity 24 38 Low-contrast letter acuity test-100 percent opacity 57 60 Dominant hand -- -- MDT Left Hand Time 27.5 -- MDT Right Hand Time 23.69 -- Walking Speed Test (25 feet) 8.56 -- General Appearance: well appearing, in no acute distress Mental status evaluation during the interview and examination showed normal level of consciousness, conversational language, and attention during the encounter. Affect: Normal Visual acuity: OD 20/30 OS 20/30 Correction: Without Extraocular movements: full, without EVIN Facial movements: Intact bilaterally Speech: normal Muscle tone: Right arm spasticity: None Right leg spasticity: Mild Left arm spasticity: None Left leg spasticity: None Muscle strength (#/5): Noted limited by pain- fell last week 2/2 RLE giving out Right Left Upper Extremity: Deltoids 5 4+ Biceps 5 4+ Triceps 4+ 5 Wrist extension 4+ 4 Finger extension 4 4 Finger flexion 4 4 Dorsal interossei 4 3 Lower extremity: Iliopsoas 4 4 Quadriceps 4 4 Hamstrings 4 4 Gastrocnemius 4 4 Coordination: Finger-nose: no dysmetria; coordination intact Heel-smith: no dysmetria; coordination intact Sensory Perception: Light touch sensation diminished in both hands to 80% of normal in the legs 10-20% of normal Standard gait: Antalgic. Assistive device: independent RESULTS: CBC + Diff Component Value Date WBC 10.55 08/17/2022 HB 14.5 08/17/2022 HCT 44.7 08/17/2022 PLT 423 (H) 08/17/2022 ABSLYMPH 0.98 (L) 08/17/2022 No results found for: VITD25 CMP Component Value Date GLUC 103 (H) 08/17/2022 BUN 9 08/17/2022 CREAT 0.58 08/17/2022 NA 141 08/17/2022 K 4.3 08/17/2022 CHLOR 102 08/17/2022 MRI Results: No results found for: [id number] , ENHANCINGLES , CERVICALNEW , SPINEENHACIN ASSESSMENT/PLAN: Bryan Cruz is a 51 year old female with Multiple Sclerosis managed on Zeposia without clear relapse and reports tolerating well but some mild generalized worsening in terms of weakness on exam today. Last MRIs are almost two years ago. We agreed on the following disease management, monitoring, and symptom management plan below. Plan: -Continue Zeposia -OCT with Optic nerve and macular scans both with pRNFL and macular ganglion cell layer analysis for diagnosis multiple sclerosis and encouter for medication monitoring for use of S1P receptor modulator -CBC, CMP, vitamin D level -MRI Brain and Cervical Spine W/WO -Consult to [facility] Pyschology- virtual please -Resume Zoloft 50mg daily x1 week then increase to 100mg daily -Continue baclofen 20mg TID, discussed option to consider botox evaluation given side effects of constipation, dry mouth and fatigue- patient elected to continue baclofen at this time but will [place] back to his at next visit -Constipation management strategies provided, miralax BID script provided as well -Biotene for dry mouth -Continue Lyrica 300mg BID -Information on cooling vest application via MSSA and diagnosis letter provided -Consult to establish PCP Patient was initially planning to go to our lab and OCT directly from visit today but unfortunately ride came early and had to leave first-as such only month scripts for Lyrica and Zoloft sent for now. MA calling patient to explain needs labs prior to refills. Office Visit on 04/18/23 MRI BRAIN WO/W IVCON MRI CERVICAL SPINE WO/W IVCON COMP METABOLIC PANEL CBC + DIFF VITAMIN D 25 HYDROXY ESTABLISH WITH PRIMARY CARE - NEW PATIENT CONSULT TO PSYCHOLOGY Patient Health Education Discussed at Visit: Emotional Health/Wellness and Need for PCP Follow-up: In 3 months at [place], Virtual Visit, or [place] with [facility] I spent a total of 60 minutes on the date of the service which included preparing to see the patient, [id number] patient care, completing clinical documentation, obtaining and/or reviewing separately obtained history, performing a medically appropriate examination, counseling and educating the patient/family/caregiver, ordering medications, tests, or procedures, and care coordination (not separately reported). Ellen Rothman MD [facility] documented in this encounter [facility] 04-03-2023 Miscellaneous Notes Lab orders placed Raymond Kemp APRN.CNP April 03, 2023 10:11 AM Bryan Cruz is calling Ellen Rothman MD today to request lab orders for upcoming office visit. Call when placed, her MYChart is not working. Please SEND THE ORDERS TO [facility]. She did not have the fax number. No chief complaint on file. Patient has been identified by name and birthdate. Duration of symptoms: Person calling: self Call patient at: [phone] (home) [phone] (cell) Was an appointment scheduled: Closing statement: Aleida De Leon documented in this encounter [facility] 03-12-2023 History of Present illness Narrative [facility] Refill Assessment Medication(s): Zeposia Patient's current medication list and adherence status to current therapy were reviewed by Specialty Pharmacy clinical pharmacist to identify any new drug interactions or non-compliance to therapy. Therapy continues to be appropriate for disease, patient response, and medical condition. Verification of therapeutic benefit and effectiveness with current therapy was completed. Adverse events, barriers in adherence, and side effects were assessed and addressed if applicable. Will proceed with refill with no changes in therapy - patient progressing towards achieving therapeutic goals based on medication-specific laboratory parameters, disease state markers and outcomes. Crm Functional Analyst Assessment Patient confirmed: Yes Med/dose confirmed: Yes Supplies needed: No supplies needed Missed doses: No Estimated days supply on hand: (unable to check qty on hand not at home at this time) Copay amount: 0 Payment confirmed: Yes Delivery method: FedEx Signature required: Waived on patient request Delivery address: [address] [place] [address] Delivery date: 03/14/23 Questions or concerns for the pharmacist?: No [facility] Specialty Pharmacy Visit Assessment - Neurology: Assessment to use: Refill Vaccination Assessment: Date of influenza vaccination reminder: 05/03/2022 Date of most recent vaccination assessment: 05/03/2022 Ermelinda Rothman (Intern) documented in this encounter [facility] 01-09-2023 Miscellaneous Notes Lab orders entered. Ness Farrell APRN.COMPENSATION CONSULTING MANAGER Called patient Identified by name and date of Reviewed recommendations Patient verbalized understanding and agrees with plan No further concerns Agreed on 01/18/2023 [place] office appointment at 1 pm with Raymond Kemp APRN, CNP; slot put on hold, page sent to add on Lab orders need to be entered. Second Attempt Phone was answered and nobody. Attempted to call back and received no response again. Called left message to call office Please try to contact patient--scheduling was unsuccessful yesterday. Last seen October 2021 and has no showed or cancelled several appts with [place] or [facility] (to establish at [place]) since then. We need to see her and repeat bloodwork to make sure it's safe to continue this medication. If she has transportation difficulties, social work may be able to help. Short-term refill sent. Ness Farrell APRN.CNP Patient phones requesting refills as follows: Requested Prescriptions Pending Prescriptions Disp Refills ozanimod (ZEPOSIA) 0.92 mg capsule 30 capsule 0 Sig: Take 1 capsule by mouth once daily Next office visit scheduled this Sunday, -. Last office visit > 1 year ago. Please review and advise. Paulo Corey RPh documented in this encounter [facility] 11-21-2022 History of Present illness Narrative Appointment rescheduled. Nadia Santiago LPN November 21, 2022 12:38 PM documented in this encounter [facility] 11-20-2022 Instructions Nadia Santiago LPN - 11/20/2022 3:35 PM EDT Images from the original note were not included. MINIMALLY INVASIVE GYNECOLOGIC SURGERY (MIGS)/BENIGN GYNECOLOGY CONTACTS: Dr. Corbin Wilson Surgery Scheduling Office: Call the day before surgery after 2pm for your surgery arrival time After hours phone number: or toll free Ask the cutter operator brick to page the special delivery clerk correction officer penitentiary.' Business hours are Sunday - Sunday from 8:00am - 4:30pm. We are closed on weekends and major holidays. PRE-OPERATIVE CHECKLIST: PATIENT INSTRUCTIONS PRIOR TO SURGERY Our guidelines have changed, so please read these instructions carefully. Your surgery may be cancelled if you do not follow these instructions. I have been instructed not to have any solid food to eat after midnight prior to my surgery (this includes no gum, mints, smoking). I am allowed to drink small amounts (up to 12 oz) of clear liquids up until 2 hours prior to my arrival time. Clear liquids include water, fruit juices without pulp, carbonated beverages (i.e. kane tyrone), electrolyte beverages (i.e. Gatorade), clear tea and black coffee, clear broth, popsicles and jello. (No milk). No alcohol the day before or day of surgery. MEDICATION STOPPAGE: Unless my surgeon tells me differently, I will STOP THESE MEDICATIONS 7 DAYS PRIOR TO SURGERY: (Motrin/ibuprofen/Naproxen/Aleve /Advil), Aspirin, vitamin E, herbal medications, diet pills, and jewi-get-yuoqhbl medications. Tylenol (acetaminophen) is okay. I will not wear jewelry, body piercing(s), makeup, nail amharic, hairpins, or contacts on the day of surgery. I am to leave valuables and money at home or with family members. If I am prescribed inhalers for breathing, I will use them and bring them to the hospital. Medication(s) to be taken on the morning of surgery with a few sips of water: If I am taking any of the following blood thinning medications - Aspirin, clopidogrel (Plavix), ticagrelor (Brilinta), prasugrel (Efficient), ticlodipine (Ticlid), warfarin (Coumadin), dibigatran (Pradaxa) or rivaroxaban (Xarelto) - I will discuss whether or not I should stop them before surgery with my surgeon. Discuss medication changes with your tools developer or primary care physician as well. If I stopped taking my blood-thinning medication, I will ask the surgeon when to resume taking it. If I am an outpatient, a responsible person will drive me home and it was suggested that someone stay with me for 24 hours. I understand that a adjunct business instructor or cabdriver is NOT a responsible caregiver. Patients with diabetes, I will not take my morning diabetes medication (pills) on the morning of surgery. If I am on insulin, someone has gone over those instructions with me for the morning of surgery. I understand if my surgery is delayed, I will notify the check in desk that I have diabetes. See the Diabetic Guidelines Before Surgery in the patient education section. If I have Obstructive Sleep Apnea and use a CPAP/BiPAP machine, I will bring my mask, tubing, and machine with me on the day of surgery. To find out my arrival time for surgery, I must call my surgical sales representative after 2pm the day before surgery. PREOP INSTRUCTIONS THE DAY OF SURGERY/CHECK IN Report to DESK J1-9 for surgery. A map is located in Your Surgical Guide Book. The online version of the surgical guide book can be found at: [email or web address] The address is [address] [place], [place] [id number] INFECTION PREVENTION Please notify your doctor if you have any signs of an infection (i.e. fever, severe cough, nasal congestion, pain with urination, abnormal vaginal discharge, diarrhea, etc). Your surgeon will let you know if a bowel prep is needed before your surgery. If so, please see the attached instructions. Shower the night before surgery AND the morning of surgery with Hibiclens (provided by your surgeon). If you are allergic to Hibiclens or unable to obtain the Hibiclens, please wash with antibacterial soap. Wash your body from the neck down, focusing on your abdomen, belly button and external genitalia. Do not forget to scrub any skin folds and creases. No lotions, oils, creams, or powders after your shower. Underarm deodorant is okay. No shaving (abdominal or pubic hair) or douching the day before surgery. You may be asked to apply an antiseptic solution called Chlorhexidine Gluconate (CHG) which will be provided to you on arrival to the preop area. Hand washing is extremely important in preventing infection (for both you as the patient and for the caregivers). HOSPITALIZATION Before you leave the hospital, you typically need to be able to eat/drink, urinate, and have your pain controlled with oral medication. Your surgeon or other members of your surgeon s team will discuss any other specific medical issues related to your discharge with you. Your surgeon may order intermittent compression sleeves. These are massaging leg pumps to help prevent blood clots after surgery. See Your Surgical Guide Book for more information. It is also very important that you walk as soon as possible and as frequently as possible after surgery. This will help decrease your risk of blood clots, exercise your lungs and speed up your recovery after surgery. If you are admitted to the hospital overnight, you will be given an incentive spirometer, which is a breathing machine that will help make sure that you are taking deep breaths and expanding your lungs while in the hospital. See Your Surgical Guide Book for more information. [facility] TEAM At the [facility], we have a multidisciplinary team of caregivers that includes fellows, residents, nurse practitioners, physician assistants, clinical nurse specialists, nurses, medical assistants, patient care nursing assistants, social workers, rehabilitation case coordinator and many others. We all have different roles and responsibilities but we are all here to help. MINIMALLY INVASIVE HYSTERECTOMY POSTOPERATIVE INSTRUCTIONS ACTIVITY * No heavy lifting/pushing/pulling for 4-6 weeks. Do not lift anything more than 10 lbs (such as laundry, groceries, children, pets), vacuum, push heavy doors or grocery carts, etc, for 4-6 weeks. * You may climb stairs as tolerated. * Do not put anything in the vagina for at least 8 weeks after surgery unless otherwise instructed by your doctor (including tampons, douching, sexual intercourse, etc). * No driving for 1 week after surgery and not while taking narcotic pain medication. Drive defensively when you are ready. * Avoid sitting or lying in bed for more than 2 hours at a time while you are awake to reduce your risk of blood clots. * You may return to work when you are ready as long as you do not lift more than 20 pounds for 4-6 weeks. If you have a sedentary job or caseworker intake 1-2 weeks before returning to work is appropriate. You may return to work in 2-4 weeks if your job requires a lot of movement. Please contact your doctor if you need any return to work letters or medical leave paperwork to be completed. *You may resume exercise/running around 4-6 weeks postop WOUND CARE * If you had a laparoscopic or robotic hysterectomy, you will have small incisions on your abdomen. There will be dissolvable stitches under your skin that do not need to be removed. If you have a piece of gauze with a clear bandage over your belly button, please remove that the day after surgery when you shower. If you have steri-strips (paper tape) on the incisions, these may be removed in about 1-2 weeks. It is OK to remove them if they are falling off. If skin glue is present, leave in place for at least 2 weeks. * Shower daily after surgery. Clean your incision with mild antibacterial soap and water. Pat your incision dry with a clean towel. No tub baths or swimming pools for 6 weeks or until wound is completely healed. * No ointments or antibacterial creams are required for incisions. Do NOT use cleansing agents like alcohol or hydrogen peroxide. * Wash your hands frequently, especially before touching your incision or changing any dressings. PAIN MANAGEMENT * Take your oral pain medication as needed. * Alternate Tylenol and ibuprofen/Motrin (if you are eligible). Each of these medications can be taken every six hours. Try to stagger them so that you are taking something for pain every three hours (ex. Take Motrin at 12:00, Tylenol at 3:00, Motrin at 6:00, etc.) to maximize pain relief. You should be taking 600mg of ibuprofen every 6 hours. You should be taking 1,000mg of tylenol every 6 hours. You should take every 6 hours with staggering and alternating. For example. 9am - ibuprofen 12pm - tylenol 3pm - ibuprofen 6pm - tylenol 9pm - ibuprofen 12am - tylenol 3am - ibuprofen 6am - tylenol Studies show this is as effective as narcotics for pain control without the side effects. Dosages * Tylenol - 500-650 mg every 6 hours as needed * Motrin - 600 mg every 6 hours as needed * The maximum dose of Tylenol is 3000 mg in 24 hours, the maximum dose of Motrin/ibuprofen is 2400mg in 24 hours * Some pain medications can cause constipation. We recommend a stool softener (i.e. Senna) while you take these medications. * You may also take milk of magnesia or Miralax for constipation as directed on the bottle. * There is a risk for addiction with narcotic pain medication, so take with caution and do not take more than the recommended amount. * Please be sure to dispose of leftover pain medication after you have recovered. You may dispose of unused narcotic medications in the trash with an unpleasant substance such as coffee grounds or cat litter or you can turn them in to a designated law enforcement/pharmacy narcotic box. You can also check FDA.gov to assess which medications can be safely flushed down the toilet. * There are locations to dispose of unused medications at three [facility] locations: [facility] pharmacy, [facility] pharmacy, and the Pharmacy at the [facility] for [facility] (inside the parking garage on the first floor). WHAT TO EXPECT AT HOME * Recovery from surgery is generally 2-4 weeks, but sometimes longer for more strenuous activity. It is normal to be very tired during this time. * It is normal to have some drainage or a small amount of vaginal bleeding after surgery that would require the use of a light pantiliner. This discharge may last up to 6 weeks. The bleeding and discharge should be light and should have no odor. * You may experience gas pain, abdominal swelling, or shoulder pain for 24-72 hours after surgery. This is from the carbon dioxide gas put into your abdomen to better visualize your organs. A warm shower, heating pad, and/or walking may help. WHEN TO CALL YOUR DOCTOR: * Fever (>100.4 F or 38.0 C) or chills. * Incision problems such as redness, warmth, swelling, or foul smelling drainage. * Severe nausea or persistent vomiting. * Bright red vaginal bleeding (soaking >1 pad/hour) or foul smelling vaginal drainage. * IT IS NORMAL TO HAVE A MINIMAL AMOUNT OF VAGINAL SPOTTING OR VAGINAL DISCHARGE FOR SEVERAL WEEKS * Severe pain not relieved with pain medication. * Pain and swelling in your legs, especially if it is only on one side. * Pain with urination, cloudy urine, or foul smelling urine. * Severe redness/irritation at sites where adhesive bandages were applied. * Or if you have any other problems or questions. FREQUENTLY ASKED QUESTIONS/CONCERNS: Constipation Constipation is common and it is normal to not have a bowel movement for up to one week after surgery. You should still be passing gas despite constipation and should be able to tolerate both liquid and solid food without nausea or vomiting. Concerning symptoms would be constipation without gas, with fever, or nausea/vomiting and inability to eat. Call your doctor if these symptoms occur. Over the counter stool softeners including Senna twice daily and Miralax up to twice daily can help with constipation. 1. Senna (1 capsule) two times a day 2. Miralax (polyethylene glycol) 17 g (1 measured capful or 1 packet) once a day. If you have not had a bowel movement 3 days after surgery, you may take the Miralax two times a day. If you have any discomfort because of the need to have a bowel movement, you may add milk of magnesia or magnesium citrate (available at your local pharmacy without a prescription) at any time. Do not take milk of magnesia or magnesium citrate if you have kidney failure. If you have loose or watery stools, stop taking the medications. Call your doctor s office if you have questions. Drainage from incisions Clear/pink drainage or a minimal amount of bleeding from incisions can be normal after laparoscopic surgery. Concerning drainage that is persistent, thick/cloudy, or foul smelling can be an indication of infection and should prompt you to call your doctor. Post-operative pain Pain after surgery is a challenging part of the healing process. Pain may be present for weeks but should gradually get better. Increasing pain or pain that is unbearable warrants evaluation by your doctor or in the emergency department. By state law we cannot immediately provide narcotic pain medication over the phone. Stitches If 2 weeks have passed and you have a visible stitch at a laparoscopic incision site it is OK for you to cut it to remove it. CALL 911 OR GO TO THE EMERGENCY ROOM IF YOU HAVE: Any shortness of breath, difficulty breathing, or chest pain. IF YOU FEEL YOU NEED TO GO TO THE EMERGENCY DEPARTMENT POST OPERATIVELY, WE RECOMMEND THE [facility] EMERGENCY DEPARTMENT FOR CONTINUITY OF CARE AND THE BEST ACCESS TO ONE OF THE SURGEONS ON OUR TEAM. Address: [address] [place] [address] documented in this encounter [facility] 11-20-2022 Miscellaneous Notes [facility] schedulers, Patient was scheduled in [facility] today at 10:20 AM and did not show for the appointment. She is scheduled for hysterectomy 12/05/2022 at [facility]. I called the patient at 10:50 and left the number for her to reschedule on her voicemail. Thank you, Mindi Henry APRN.[facility] documented in this encounter [facility] 11-17-2022 Miscellaneous Notes Called patient Identified by name and date of Reviewed recommendations Patient verbalized understanding and agrees with plan No further concerns - Patient stated that she has the scheduling phone number and will schedule with Dr. Rothman. She was advised that she was only provided with a thirty day supply 30 day supply filled on 11/02/22, so patient should have enough medication left. Last seen over one year ago by Magdalene Drake PA-C, who is no longer working at [employer], and before that was seen by Dr Rothman and Dr Hernandez. Missed recent appt with Dr Rothman. This appt needs to be re-scheduled for controlled substances refill. Ness Farrell APRN.SHAYLA Source : call from patient requesting refill. Delivery : e-script Requested Prescriptions Pending Prescriptions Disp Refills pregabalin (LYRICA) 300 mg capsule 60 capsule 0 Sig: Take 1 capsule by mouth twice daily for 30 days. Patient last seen : 10/27/2021 Next Appointment : none Joanne Dillard documented in this encounter [facility] 10-27-2022 Miscellaneous Notes Spoke with patient and went over the dates and times for pre & post op appts, pt stated she doesn't use MyChart, she wrote all the appts down documented in this encounter [facility] 10-27-2022 Miscellaneous Notes P2P scheduled for 11/01 @10am. Dr. Reid will call Ellen Church CNP work cell. Peer to Peer Information Is a Peer to Peer available? Yes Does Peer to Peer need to be scheduled? Yes, by leaving a voice mail requesting a call back. Who can schedule? N/A Who can complete the Peer to Peer? MD, PA, SPEECH LANGUAGE THERAPIST, LN Allowable Peer to Peer timeframe? Must be completed by 10/31/2022 Payer Information Insurance Name [facility] Insurance P2P opt 1 Case # [id number] Appeal Information Appeal Address N/A Appeal Special Appeal Instructions Provider and member's consent form are required for appeal submission. Please see attached. Allowable Timeframe for Appeal 180 calendars days Facility Information Location [facility] [place] [id number] Tax ID# [id number] Patient Demographics Patient Last Name Nancy Patient First Name Bryan Date of 1970 Clinical/Denial Information Ordering Provider Andrea Katia Wilson Approved Services N/A Denied Services 92186 - ROBOTIC LAPAROSCOPIC TOTAL HYSTERECTOMY W/ BSO UTERUS=>250G Alternative Recommendation N/A Date of Service (DOS) 12/05/2022 Denial Reason Your request for surgery (hysterectomy) cannot be approved. You are 51 years old. You have frequent and heavy periods. You have multiple masses (fibroids) in your uterus. Notes do not show you have had recent imaging. Notes do not show you have tried and failed other treatments. Notes do not show you have had an investigative procedure (hysteroscopy). The request does not meet guidelines. Guideline: [place] Administrative Code 5160-1-01 and [facility] Hysterectomy, Laparoscopic ( S-665 ). Clinical Documentation Provided Office notes: Bony 08/17/22; Katia Wilson 08/25/21, 07/19/21 - Telephone encounter: Katia Wilson 08/25/22 Imaging: PELVIC US 08/02/21 Labs/Cultures: PATH 08/25/21 documented in this encounter [facility] 10-25-2022 Miscellaneous Notes Pre op lab orders placed. Katya Mendoza APRN.CNP documented in this encounter [facility] 08-24-2022 Miscellaneous Notes Patient called regarding pre op appointments Patient can be reached at [phone] Kimberly Lynch Called patient to schedule pre op with Dr. Montalvo. Patient has not kept her past 2. Advised if this is not kept then we are going to have to cancel case. .nj documented in this encounter [facility] 08-17-2022 History and physical note HISTORY AND PHYSICAL EXAMINATION SERVICE DATE: 08/17/2022 SERVICE TIME: 8:54 AM PRIMARY CARE PHYSICIAN: Rina Reardon DO REASON FOR VISIT: Bryan Cruz is a 51 year old female who is scheduled for ROBOTIC LAPAROSCOPIC TOTAL HYSTERECTOMY W/ BSO UTERUS=<250G at the request of Dr. Corbin Wilson for consultation. My final recommendation will be communicated back to the requesting physician by way of shared medical record or letter. The patient has the following: ACTIVE PROBLEM LIST Obesity, Class III, BMI >= 40 Multiple Sclerosis (Hcc) Suicidal Ideation Major Depressive Disorder Leukocytosis Hyperlipidemia History of Cocaine Abuse (Hcc) Current Smoker Stroke (Cerebrum) ([facility]) Subjective CHIEF COMPLAINT: AUB HPI: 51 year old year old presents to [facility] for evaluation. Patient has been experiencing pelvic pain and spotting > 2 months. Has elected for surgical intervention. PAST MEDICAL HISTORY Diagnosis Date Cocaine use reports relapsed in 2019 but now sober again Depression Multiple sclerosis (HCC) Smoking Stroke (cerebrum) ([facility]) 2016 had trouble walking PAST SURGICAL HISTORY Procedure Laterality Date >=3 FAMILY HISTORY Problem Relation Age of Onset Hypertension Mother Diabetes Mother COPD Father Hypertension Sister Diabetes Sister SOCIAL HISTORY: Social History Tobacco Use Smoking status: Some Days Types: Cigarettes Smokeless tobacco: Never Tobacco comments: Not daily; 3-4 per day when she does smoke. Vaping Use Vaping Use: Never used Substance Use Topics Alcohol use: Not Currently Drug use: Yes Types: Cocaine, Marijuana Comment: Marijuana as needed. history of cocaine states relapsed in 2019 none since then Prior to Admission medications as of 08/17/22 0856 Medication Sig Last Dose Taking pregabalin (LYRICA) 300 mg capsule Take 1 capsule by mouth twice daily for 180 days. Yes hydrOXYzine pamoate (VISTARIL) 50 mg capsule Yes ozanimod (ZEPOSIA) 0.92 mg capsule Take 1 capsule by mouth once daily Yes baclofen (LIORESAL) 20 mg tablet Take 1 tablet by mouth three times daily. Yes sertraline (ZOLOFT) 100 mg tablet Take 1 tablet by mouth once daily. Yes lidocaine HCL 4 % ptmd Apply 1 Patch to affected area once daily. Yes atorvastatin (LIPITOR) 20 mg tablet Take 20 mg by mouth once daily. Yes No medication comments found. ALLERGIES Allergen Reactions Nsaids (Non-Steroid* Hives Tramadol Hives COVID VACCINATION STATUS: Not vaccinated REVIEW OF SYSTEMS: PAIN ASSESSMENT: General: No weight loss, malaise or fevers. Neuro: Negative for Headaches Seizures Delirium +CVA +MS- Ross Respiratory: No history of current cough or dyspnea, or pneumonia in the past 6 weeks. No history of respiratory/pulmonary symptoms or problems. Cardiovascular: No history of HTN requiring medication, no history of angina, CHF, MA, cardiac surgery or stents. Denies rest pain, gangrene or revascularization/amputation for PVD. No history of cardiovascular symptoms or problems. +HLD GI: No history of GI symptoms or problems. No history of esophageal varices, recent ascites, or ETOH greater than 2 drinks per day. : No history of dysuria, frequency or incontinence,, stones or chronic kidney disease WOOD BARKER: See HPI : N/A, Patient's last menstrual period was 04/28/2020 (within years). Endocrine: No history of diabetes. Has not taken steroids within the past 30 days. No history of endocrinological symptoms or problems. Hematology: No history of bleeding or clotting disorder. Pt is not taking anti-coagulation or platelet medications. No history of hematological symptoms or problems. Oncology: No history of CA metastasis, chemo within 30 days, or radiotherapy within 90 days. Has not lost 10% of body wt in 6 months. No history of oncological symptoms or problems. Psych: Anxiety, Depression Musculoskeletal: Negative for joint pain or swelling, back pain or muscle pain. Skin: Negative for lesions, rash and itching. Objective PHYSICAL EXAM: VITALS: BP 143/65 Pulse 51 Temp (Src) 97 (Temporal Artery) Resp 16 Ht 4' 11.75 (1.52m) Wt 204 lb (92.5kg) SpO2 100% LMP 04/28/2020 BMI 40.16 kg/(m^2). General: Alert and oriented Skin: Normal color, no rash, no lesions. HEENT: EOM, pupils equal, round and reactive. Cardiovascular: Normal S1 & S2, no rubs, murmurs or gallops. No JVD. Pulse regular. Lungs: Normal breath sounds, no wheezes or crackles. Extremities: No deformity, no edema or tenderness, no joint swelling or clubbing. Neurological: Normal cognition and motor skills. Pulses: Carotid and radial pulses normal +2. Diagnostic tests reviewed for today's visit: PENDING Assessment/Plan Multiple sclerosis (HCC) Assessment: Stable follows with Neurology On ozanimod Hyperlipidemia Assessment: On statin Current smoker Assessment: Daily smoker 2-3 cigarettes per day Major depressive disorder Assessment: Stable Medication management Attends therapy Obesity, Class III, BMI >= 40 Assessment: Body mass index is 40.18 kg/m . Suicidal ideation Assessment: Stable Denies any SI Has not had any >2 years History of cocaine abuse ([facility]) Assessment: Sober since 2019 Stroke (cerebrum) ([facility]) Assessment: 2016 No residual deficits METS: Do moderate work around the house such as vacuuming, sweeping floors, or carrying in groceries (3.50 METs) Climb a flight of stairs or walk up a hill (5.50 METs) Patient denies any chest pain or undue shortness of breath with the above physical activity. ASA Class: 3 ANESTHESIA FINDINGS: Intubation History: No prior intubation Significant Anesthesia Considerations: None Airway Exam: General: Normal appearance Mallampati Score is CLASS II ULBT: Class II - Lower incisors can bite the upper lip below the vani line Neck: Normal appearance and function, Distance from hyoid to mentum during neck extension is at least 3 finger breaths Mouth: Normal tongue size and Mouth opening greater than 2 finger breaths Dentition: Intact Airway History: No abnormal airway history STOP BANG Score: Criteria: Snoring BMI > 35 Age over 50 (51 year old) Score = 3 PLAN This patient is optimally prepared for surgery pending LABS. CONSULTS: Patient does not require consults for optimization at this time. The Following Tests/Procedures Have Been Initiated: Orders Placed This Encounter CBC with Differential Standing Status: Future Number of Occurrences: 1 Standing Expiration Date: 10/17/2022 BMP Standing Status: Future Number of Occurrences: 1 Standing Expiration Date: 10/17/2022 Type and Screen, 30 day Standing Status: Future Number of Occurrences: 1 Standing Expiration Date: 10/17/2022 Confirm Blood Type Standing Status: Future Number of Occurrences: 1 Standing Expiration Date: 10/17/2022 Order Specific Question: Did Blood Bank direct you to place this order: Answer: No - Presurgical Workflow Planned Anesthetic: Per anesthesia choice Instructions Given to Patient: Instructions located in the after visit summary. Patient given verbal and written preop instructions and voices comprehension and compliance. SIGNATURE: Rina Lovett APRN.CNP PATIENT NAME: Bryan Cruz DATE: August 17, 2022 TIME: 8:54 AM documented in this encounter [facility] 08-17-2022 Instructions Rina Lovett APRN.CNP - 08/17/2022 8:53 AM EST PATIENT PREOPERATIVE INSTRUCTIONS Corbin Wang MD has scheduled you for your procedure at this surgery center: [facility]: [phone] --[address] [address]. Please check in on the 1st floor at registration desk 6. Please read below carefully for your personalized instructions. Dietary Restrictions: - No solid food after midnight. - You may have 12 ounces of clear liquids (water, clear juices such as apple juice or gatorade, carbonated beverages, clear tea, black coffee, jello) until 2 hours before scheduled arrival at facility. Medications: Unless instructed differently below, stay on all of your medications until your surgery. Approved medications to take the morning of surgery with a sip of water: Lyrica, Zeposia, Zoloft, and atorvastatin If you start any new medications after today's visit, please contact the surgeon's office. Blood Thinning Medications: - Stop NSAIDS (Ibuprofen, Advil, Aleve, Motrin, Celebrex, Mobic, etc.) 7 days before surgery, as directed by your surgeon. - Stop Aspirin 7 days before surgery, as directed by your surgeon. - Stop Vitamin E, ALL multi-vitamins, herbals and dietary supplements 7 days before surgery. - You may take Tylenol (Acetaminophen) or any of your pain medications that do not contain aspirin or NSAIDS as needed. Important Reminders: - Candy, mints, and tobacco products are NOT permitted the morning of surgery. - Hearing aids, dentures and glasses may be worn the morning of surgery. - NO jewelry, body piercings, makeup, hairpins or contacts are to be worn the day of surgery. If you develop symptoms such as a fever, cold, or flu, or have other changes to your health within TWO DAYS of scheduled surgery or the morning of surgery, please contact the surgery center above. Personal Belongings: -Please have photo ID and insurance cards. -If you do not have a copy of advance directives on file with us, please bring a copy with you on the day of surgery. - Leave ALL valuables and money at home or with family members. For Outpatient Procedures: - YOU MUST HAVE A RESPONSIBLE SCREEN AND CYCLONE REPAIRER TAKE YOU HOME. A CRANE MECHANIC OR PLAYER PIANO TECHNICIAN CANNOT BE MADE A RESPONSIBLE SCREEN AND CYCLONE REPAIRER. - We recommend that a responsible person stays with you overnight to take care of you. - You cannot stay in a hotel alone after outpatient surgery. You will not be permitted to have your surgery, if you do not have someone to take care of you. Arrival Time for Surgery: - The Surgery Center or hospital where you are having surgery will call the afternoon before surgery (or Sunday for Sunday surgery) with a scheduled arrival time. - If you have not heard by 4 pm, please contact the surgery center above. Please be aware that emergency situations arise, which may delay or change your surgical time. If this happens, we will notify you as soon as possible and regret any inconvenience. If you already have an Advance Directive, please fax a copy to [phone] or email to for it to be added to your chart. If you do not have an Advance Directive, you can find the appropriate form and more information at [email or web address]. We recommend that you complete the Advance Directive form found on the website and bring it with you the day of your surgery. It can be witnessed and scanned into your chart that day. Rina Lovett APRN.CNP documented in this encounter [facility] 08-14-2022 History of Present illness Narrative DATE OF SERVICE: 08/14/2022 PROBLEM: Bryan Cruz presents for pre-op teaching. PRE-OP DIAGNOSIS: AUB and fibroids SCHEDULED SURGERY AND DATE: 09-01-22 [facility] ROBOTIC LAPAROSCOPIC TOTAL HYSTERECTOMY W/ BSO UTERUS=<250G PRIMARY SURGEON: Corbin Wilson MD NURSING PREOP ASSESSMENT: Fevers, chills, cough, or nasal congestion: No Vaginal itching, burning, discharge, or odor: No Pain with urination, frequency, urgency, cloudy or foul smelling urine: No If yes to any of the above then MD notified: Not Applicable ADVANCED CARE PLANNING: Does the patient have an advanced directive: No Does [facility] have a copy of the patient's advanced directive: No Was advanced directive given to the patient: No PATIENT LEARNING ASSESSMENT: Individual patient/family learning needs evaluated and addressed: Yes Cognitive ability: Alert and oriented Motivation to learn: Interested Factors affecting learning: None Physical limitations affecting learning: None Patient learns best by: Multiple Methods Method of instruction: Individual instruction Instructions provided to: Patient via telephone. Written material provided prior to education appointment. Family support: High - Very involved in pt care PRE- AND POST-OPERATIVE TEACHING Pre-operative teaching and supplemental material provided and reviewed with patient: Written pre-op and post-op instructions Antibacterial soap: patient declined, will use own Pre-operative instructions provided and reviewed with patient/family: No eating, drinking, or smoking after midnight prior to surgery unless otherwise directed No alcohol the day before surgery Medications as prescribed by anesthesia, internal medicine, surgeon, or SPEECH LANGUAGE THERAPIST Stop NSAIDs, Aspirin (ASA), vitamins, herbal supplements, herbal teas, and diet pills 7-10 days prior to surgery OK to take tylenol prn pain unless otherwise directed by physician Call surgery coordinators if any other questions about surgery date or pre-op appointments Bowel prep instructions: NPO after midnight Day of surgery instructions provided and reviewed with patient/family: Arrival time (call surgical coordinators on the office day prior to surgery for verification) No jewelry, body piercing, makeup, contacts, lotions, nail amharic on fingers, or anything in hair on arrival to surgery Wear low healed shoes and loose fitting clothing Leave all valuables at home or with a family member Directions to [facility] Parking/parking validation on the day prior to surgery Admission/check in Holding area Placement of IV Surgical positioning Family waiting area Surgical recovery room Post-operative instructions provided and reviewed with patient/family: SEE PATIENT INSTRUCTION SECTION FOR DETAILS. SYMPTOMS TO NOTIFY MD - Fever, chills, nausea, vomiting, increased or severe pain, heavy vaginal bleeding, foul smelling vaginal drainage, pain or swelling in extremities. URGENT SYMPTOMS - Call 911 or go to ER if any shortness of breath, difficulty breathing, or chest pain. HOW TO CONTACT PHYSICIAN - Physician's office phone number given to patient, if after hours patient instructed to call cutter operator brick and ask for [facility] special delivery clerk onc resident. ANTONINA program offered to patient: Yes Additional teaching as indicated by patient/family learning needs. PATIENT LEARNING EVALUATION & FOLLOW UP PLAN: Patient and/or family express understanding of upcoming surgery, pre-operative preparation, the operative process, and post-operative instructions. Follow up plan: Patient instructed to call with any further issues Patient has a post-op appointment scheduled: Yes Referral (recommentation): None Educator: Nadia Santiago LPN [facility] documented in this encounter [facility] 08-14-2022 Instructions Nadia Santiago LPN - 08/14/2022 9:35 AM EST Images from the original note were not included. MINIMALLY INVASIVE GYNECOLOGIC SURGERY (MIGS)/BENIGN GYNECOLOGY CONTACTS: Surgeons: Dr. Anita Urena Dr. Brittaney Morrison Dr. Naheed Gomez Dr. Corbin Wilson Dr. Dejon Del Toro Dr. April Moore Dr. Pooja Weinstein Dr. Eboni Alejandre Dr. Stacy Lynn Nurse Practitioners: Ellen Nobles, CATALYST IMPREGNATOR.COMPENSATION CONSULTING MANAGER Vale Alas CATALYST IMPREGNATOR.COMPENSATION CONSULTING MANAGER Sherita Bruce, CATALYST IMPREGNATOR.COMPENSATION CONSULTING MANAGER lAesha Mascorro APRN.COMPENSATION CONSULTING MANAGER Surgery Scheduling Office: Call the day before surgery after 2pm for your surgery arrival time After hours phone number: or toll free Ask the cutter operator brick to page the special delivery clerk [facility].' Business hours are Sunday - Sunday from 8:00am - 4:30pm. We are closed on weekends and major holidays. PRE-OPERATIVE CHECKLIST: PATIENT INSTRUCTIONS PRIOR TO SURGERY Our guidelines have changed, so please read these instructions carefully. Your surgery may be cancelled if you do not follow these instructions. MY ARRIVAL TIME IS: I have been instructed not to have any solid food to eat after midnight prior to my surgery (this includes no gum, mints, smoking). I am allowed to drink small amounts (up to 12 oz) of clear liquids up until 2 hours prior to my arrival time. Clear liquids include water, fruit juices without pulp, carbonated beverages (i.e. kane tyrone), electrolyte beverages (i.e. Gatorade), clear tea and black coffee, clear broth, popsicles and jello. (No milk). No alcohol the day before or day of surgery. I will bring this binder to all pre and post-operative appointments AND day of surgery. MEDICATION STOPPAGE: Unless my surgeon tells me differently, I will STOP THESE MEDICATIONS 7 DAYS PRIOR TO SURGERY: (Motrin/ibuprofen/Naproxen/Aleve /Advil), Aspirin, vitamin E, herbal medications, diet pills, and wknl-wsf-gwguswi medications. Tylenol (acetaminophen) is okay. I will not wear jewelry, body piercing(s), makeup, nail amharic, hairpins, or contacts on the day of surgery. I am to leave valuables and money at home or with family members. If I am prescribed inhalers for breathing, I will use them and bring them to the hospital. Medication(s) to be taken on the morning of surgery with a few sips of water: If I am taking any of the following blood thinning medications - Aspirin, clopidogrel (Plavix), ticagrelor (Brilinta), prasugrel (Efficient), ticlodipine (Ticlid), warfarin (Coumadin), dibigatran (Pradaxa) or rivaroxaban (Xarelto) - I will discuss whether or not I should stop them before surgery with my surgeon. Discuss medication changes with your tools developer or primary care physician as well. If I stopped taking my blood-thinning medication, I will ask the surgeon when to resume taking it. If I am an outpatient, a responsible person will drive me home and it was suggested that someone stay with me for 24 hours. I understand that a adjunct business instructor or cabdriver is NOT a responsible caregiver. Patients with diabetes, I will not take my morning diabetes medication (pills) on the morning of surgery. If I am on insulin, someone has gone over those instructions with me for the morning of surgery. I understand if my surgery is delayed, I will notify the check in desk that I have diabetes. See the Diabetic Guidelines Before Surgery in the patient education section. If I have Obstructive Sleep Apnea and use a CPAP/BiPAP machine, I will bring my mask, tubing, and machine with me on the day of surgery. Pain management education material found in Your Surgical Guide was reviewed with me. To find out my arrival time for surgery, I must call my surgical sales representative after 2pm the day before surgery. Pre-operative instructions given by: PREOP INSTRUCTIONS THE DAY OF SURGERY/CHECK IN Surgery Location Parking Check-in Location [facility] [id number] [place], [place] Parking garage connected to hospital or [facility] Registration desk, first floor, main lobby INFECTION PREVENTION Please notify your doctor if you have any signs of an infection (i.e. fever, severe cough, nasal congestion, pain with urination, abnormal vaginal discharge, diarrhea, etc). Your surgeon will let you know if a bowel prep is needed before your surgery. If so, please see the attached instructions. Shower the night before surgery AND the morning of surgery with Hibiclens (provided by your surgeon). If you are allergic to Hibiclens or unable to obtain the Hibiclens, please wash with antibacterial soap. Wash your body from the neck down, focusing on your abdomen, belly button and external genitalia. Do not forget to scrub any skin folds and creases. No lotions, oils, creams, or powders after your shower. Underarm deodorant is okay. No shaving (abdominal or pubic hair) or douching the day before surgery. You may be asked to apply an antiseptic solution called Chlorhexidine Gluconate (CHG) which will be provided to you on arrival to the preop area. Hand washing is extremely important in preventing infection (for both you as the patient and for the caregivers). HOSPITALIZATION Before you leave the hospital, you typically need to be able to eat/drink, urinate, and have your pain controlled with oral medication. Your surgeon or other members of your surgeon s team will discuss any other specific medical issues related to your discharge with you. Your surgeon may order intermittent compression sleeves. These are massaging leg pumps to help prevent blood clots after surgery. See Your Surgical Guide Book for more information. It is also very important that you walk as soon as possible and as frequently as possible after surgery. This will help decrease your risk of blood clots, exercise your lungs and speed up your recovery after surgery. If you are admitted to the hospital overnight, you will be given an incentive spirometer, which is a breathing machine that will help make sure that you are taking deep breaths and expanding your lungs while in the hospital. See Your Surgical Guide Book for more information. [facility] TEAM At the [facility], we have a multidisciplinary team of caregivers that includes fellows, residents, nurse practitioners, physician assistants, clinical nurse specialists, nurses, medical assistants, patient care nursing assistants, social workers, rehabilitation case coordinator and many others. We all have different roles and responsibilities but we are all here to help. MINIMALLY INVASIVE HYSTERECTOMY POSTOPERATIVE INSTRUCTIONS ACTIVITY * No heavy lifting/pushing/pulling for 6 weeks. Do not lift anything more than 10 lbs (such as laundry, groceries, children, pets), vacuum, push heavy doors or grocery carts, etc, for 6 weeks. * You may climb stairs as tolerated. * Do not put anything in the vagina for at least 6-8 weeks after surgery unless otherwise instructed by your doctor (including tampons, douching, sexual intercourse, etc). * No driving for 1 week after surgery and not while taking narcotic pain medication. Drive defensively when you are ready. * Avoid sitting or lying in bed for more than 2 hours at a time while you are awake to reduce your risk of blood clots. * You may return to work when you are ready as long as you do not lift more than 10 pounds for 6 weeks. If you have a sedentary job or caseworker intake 1-2 weeks before returning to work is appropriate. You may return to work in 2-4 weeks if your job requires a lot of movement. Please contact your doctor if you need any return to work letters or medical leave paperwork to be completed. WOUND CARE * If you had a laparoscopic or robotic hysterectomy, you will have small incisions on your abdomen. There will be dissolvable stitches under your skin that do not need to be removed. If you have a piece of gauze with a clear bandage over your belly button, please remove that the day after surgery when you shower. If you have steri-strips (paper tape) on the incisions, these may be removed in about 1-2 weeks. It is OK to remove them if they are falling off. If skin glue is present, leave in place for at least 2 weeks. * Shower daily after surgery. Clean your incision with mild antibacterial soap and water. Pat your incision dry with a clean towel. No tub baths or swimming pools for six weeks or until wound is completely healed. * No ointments or antibacterial creams are required for incisions. Do NOT use cleansing agents like alcohol or hydrogen peroxide. * Wash your hands frequently, especially before touching your incision or changing any dressings. PAIN MANAGEMENT * Take your oral pain medication as needed. * Alternate Tylenol and ibuprofen/Motrin (if you are eligible). Each of these medications can be taken every six hours. Try to stagger them so that you are taking something for pain every three hours (ex. Take Motrin at 12:00, Tylenol at 3:00, Motrin at 6:00, etc.) to maximize pain relief. You should be taking 600mg of ibuprofen every 6 hours. You should be taking 1,000mg of tylenol every 6 hours. You should take every 6 hours with staggering and alternating. For example. 9am - ibuprofen 12pm - tylenol 3pm - ibuprofen 6pm - tylenol 9pm - ibuprofen 12am - tylenol 3am - ibuprofen 6am - tylenol Studies show this is as effective as narcotics for pain control without the side effects. Dosages * Tylenol - 500-650 mg every 6 hours as needed * Motrin - 600 mg every 6 hours as needed * The maximum dose of Tylenol is 3000 mg in 24 hours, the maximum dose of Motrin/ibuprofen is 2400mg in 24 hours * Some pain medications can cause constipation. We recommend a stool softener (i.e. Colace) while you take these medications. * You may also take milk of magnesia or Miralax for constipation as directed on the bottle. * There is a risk for addiction with narcotic pain medication, so take with caution and do not take more than the recommended amount. * Please be sure to dispose of leftover pain medication after you have recovered. You may dispose of unused narcotic medications in the trash with an unpleasant substance such as coffee grounds or cat litter or you can turn them in to a designated law enforcement/pharmacy narcotic box. You can also check FDA.gov to assess which medications can be safely flushed down the toilet. * There are locations to dispose of unused medications at three [facility] locations: [facility] pharmacy, [facility] pharmacy, and the Pharmacy at the [facility] for [facility] (inside the parking garage on the first floor). WHAT TO EXPECT AT HOME * Recovery from surgery is generally 2-4 weeks, but sometimes longer for more strenuous activity. It is normal to be very tired during this time. * It is normal to have some drainage or a small amount of vaginal bleeding after surgery that would require the use of a light pantiliner. This discharge may last up to 6 weeks. The bleeding and discharge should be light and should have no odor. * You may experience gas pain, abdominal swelling, or shoulder pain for 24-72 hours after surgery. This is from the carbon dioxide gas put into your abdomen to better visualize your organs. A warm shower, heating pad, and/or walking may help. WHEN TO CALL YOUR DOCTOR: * Fever (>100.4 F or 38.0 C) or chills. * Incision problems such as redness, warmth, swelling, or foul smelling drainage. * Severe nausea or persistent vomiting. * Bright red vaginal bleeding (soaking >1 pad/hour) or foul smelling vaginal drainage. * IT IS NORMAL TO HAVE A MINIMAL AMOUNT OF VAGINAL SPOTTING OR VAGINAL DISCHARGE FOR SEVERAL WEEKS * Severe pain not relieved with pain medication. * Pain and swelling in your legs, especially if it is only on one side. * Pain with urination, cloudy urine, or foul smelling urine. * Severe redness/irritation at sites where adhesive bandages were applied. * Or if you have any other problems or questions. FREQUENTLY ASKED QUESTIONS/CONCERNS: Constipation Constipation is common and it is normal to not have a bowel movement for up to one week after surgery. You should still be passing gas despite constipation and should be able to tolerate both liquid and solid food without nausea or vomiting. Concerning symptoms would be constipation without gas, with fever, or nausea/vomiting and inability to eat. Call your doctor if these symptoms occur. Over the counter stool softeners including Colace twice daily and Miralax up to twice daily can help with constipation. 1. Senna (1 capsule) two times a day 2. Miralax (polyethylene glycol) 17 g (1 measured capful or 1 packet) once a day. If you have not had a bowel movement 3 days after surgery, you may take the Miralax two times a day. If you have any discomfort because of the need to have a bowel movement, you may add milk of magnesia or magnesium citrate (available at your local pharmacy without a prescription) at any time. Do not take milk of magnesia or magnesium citrate if you have kidney failure. If you have loose or watery stools, stop taking the medications. Call your doctor s office if you have questions. Drainage from incisions Clear/pink drainage or a minimal amount of bleeding from incisions can be normal after laparoscopic surgery. Concerning drainage that is persistent, thick/cloudy, or foul smelling can be an indication of infection and should prompt you to call your doctor. Post-operative pain Pain after surgery is a challenging part of the healing process. Pain may be present for weeks but should gradually get better. Increasing pain or pain that is unbearable warrants evaluation by your doctor or in the emergency department. By state law we cannot immediately provide narcotic pain medication over the phone. Stitches If 2 weeks have passed and you have a visible stitch at a laparoscopic incision site it is OK for you to cut it to remove it. CALL 911 OR GO TO THE EMERGENCY ROOM IF YOU HAVE: Any shortness of breath, difficulty breathing, or chest pain. IF YOU FEEL YOU NEED TO GO TO THE EMERGENCY DEPARTMENT POST OPERATIVELY, WE RECOMMEND THE MAIN CAMPUS EMERGENCY DEPARTMENT FOR CONTINUITY OF CARE AND THE BEST ACCESS TO ONE OF THE SURGEONS ON OUR TEAM. Address: [address] [place] [address] documented in this encounter [facility] 08-04-2022 History of Present illness Narrative The patient did not show up for this appointment. Kyler Gray Ma August 04, 2022 3:44 PM documented in this encounter [facility] 05-31-2022 History of Present illness Narrative [facility] Refill Assessment Medication(s): Zeposia Patient's current medication list and adherence status to current therapy were reviewed by Specialty Pharmacy clinical pharmacist to identify any new drug interactions or non-compliance to therapy. Therapy continues to be appropriate for disease, patient response, and medical condition. Verification of therapeutic benefit and effectiveness with current therapy was completed. Adverse events, barriers in adherence, and side effects were assessed and addressed if applicable. Will proceed with refill with no changes in therapy - patient progressing towards achieving therapeutic goals based on medication-specific laboratory parameters, disease state markers and outcomes. Crm Functional Analyst Assessment Patient confirmed: Yes Med/dose confirmed: Yes Supplies needed: No supplies needed Missed doses: Yes Count of missed doses: 3 Reason for missed doses: forgot Estimated days supply on hand: 7 Next cycle/dose due: 06/01/22 Copay amount: 0 Payment confirmed: Yes Delivery method: FedEx Signature required: No (Patient request SIG removal) Delivery address: [address] [place] [address] Delivery date: 06/06/22 Questions or concerns for the pharmacist?: No [facility] Visit Assessment - Neurology: Assessment to use: Refill Vaccination Assessment: Date of influenza vaccination reminder: 05/03/2022 Date of most recent vaccination assessment: 05/03/2022 Freda Curtis CPhT [facility] [phone] documented in this encounter [facility] 05-15-2022 Miscellaneous Notes Source : call from patient requesting refill. Delivery : e-script Requested Prescriptions Pending Prescriptions Disp Refills pregabalin (LYRICA) 300 mg capsule 60 capsule 5 Sig: Take 1 capsule by mouth twice daily for 180 days. DX : Patient last seen : 12/02/2021 Next Appointment : none Amandeep Cook documented in this encounter [facility] 05-08-2022 History of Past i llness Narrative Problem Noted Date Diagnosed Date Resolved Date Suicidal ideation 05/08/2022 07/19/2023 Last Assessment & Plan: Assessment: Stable Denies any SI Has not had any >2 years Leukocytosis 05/08/2022 07/19/2023 documented as of this encounter (statuses as of 07/20/2023) [facility] History of Past illness Narrative* Problem Noted Date Diagnosed Date Resolved Date Suicidal ideation 05/08/2022 07/19/2023 Last Assessment & Plan: Assessment: Stable Denies any SI Has not had any >2 years Leukocytosis 05/08/2022 07/19/2023 documented as of this encounter (statuses as of 07/20/2023) [facility] History of Past illness Narrative* Problem Noted Date Diagnosed Date Resolved Date Suicidal ideation 05/08/2022 07/19/2023 Last Assessment & Plan: Assessment: Stable Denies any SI Has not had any >2 years Leukocytosis 05/08/2022 07/19/2023 documented as of this encounter (statuses as of 09/07/2023) [facility] History of Past illness Narrative* Problem Noted Date Diagnosed Date Resolved Date Suicidal ideation 05/08/2022 07/19/2023 Last Assessment & Plan: Assessment: Stable Denies any SI Has not had any >2 years Leukocytosis 05/08/2022 07/19/2023 documented as of this encounter (statuses as of 09/07/2023) [facility] History of Past illness Narrative* Problem Noted Date Diagnosed Date Resolved Date Suicidal ideation 05/08/2022 07/19/2023 Last Assessment & Plan: Assessment: Stable Denies any SI Has not had any >2 years Leukocytosis 05/08/2022 07/19/2023 documented as of this encounter (statuses as of 09/20/2023) [address]03-2022 History of Past illness Narrative* Problem Noted Date Diagnosed Date Resolved Date Suicidal ideation 05/08/2022 07/19/2023 Last Assessment & Plan: Assessment: Stable Denies any SI Has not had any >2 years Leukocytosis 05/08/2022 07/19/2023 documented as of this encounter (statuses as of 09/20/2023) [address]03-2022 History of Past illness Narrative* Problem Noted Date Diagnosed Date Resolved Date Suicidal ideation 05/08/2022 07/19/2023 Last Assessment & Plan: Assessment: Stable Denies any SI Has not had any >2 years Leukocytosis 05/08/2022 07/19/2023 documented as of this encounter (statuses as of 09/21/2023) [address]03-2022 History of Past illness Narrative* Problem Noted Date Diagnosed Date Resolved Date Suicidal ideation 05/08/2022 07/19/2023 Last Assessment & Plan: Assessment: Stable Denies any SI Has not had any >2 years Leukocytosis 05/08/2022 07/19/2023 documented as of this encounter (statuses as of 09/21/2023) [address]03-2022 History of Past illness Narrative* Problem Noted Date Diagnosed Date Resolved Date Suicidal ideation 05/08/2022 07/19/2023 Last Assessment & Plan: Assessment: Stable Denies any SI Has not had any >2 years Leukocytosis 05/08/2022 07/19/2023 documented as of this encounter (statuses as of 09/28/2023) [address]-2022 History of Past illness Narrative* Problem Noted Date Diagnosed Date Resolved Date Suicidal ideation 05/08/2022 07/19/2023 Last Assessment & Plan: Assessment: Stable Denies any SI Has not had any >2 years Leukocytosis 05/08/2022 07/19/2023 documented as of this encounter (statuses as of 10/03/2023) [facility] History of Past illness Narrative* Problem Noted Date Diagnosed Date Resolved Date Suicidal ideation 05/08/2022 07/19/2023 Last Assessment & Plan: Assessment: Stable Denies any SI Has not had any >2 years Leukocytosis 05/08/2022 07/19/2023 documented as of this encounter (statuses as of 10/03/2023) [facility] History of Past illness Narrative* Problem Noted Date Diagnosed Date Resolved Date Suicidal ideation 05/08/2022 07/19/2023 Last Assessment & Plan: Assessment: Stable Denies any SI Has not had any >2 years Leukocytosis 05/08/2022 07/19/2023 documented as of this encounter (statuses as of 10/18/2023) [facility] History of Past illness Narrative* Problem Noted Date Diagnosed Date Resolved Date Suicidal ideation 05/08/2022 07/19/2023 Last Assessment & Plan: Assessment: Stable Denies any SI Has not had any >2 years Leukocytosis 05/08/2022 07/19/2023 documented as of this encounter (statuses as of 11/08/2023) [facility] Miscellaneous Notes* Telephone Encounter - Alesha Mascorro APRN.CNP - 03/28/2022 9:56 AM EDT Closing encounter. Patient reschedule for surgery Alesha Mascorro APRN.CNP * Telephone Encounter - Alpa Stratton RN - 02/02/2022 8:24 AM EDT Attempted to reach patient. VM left for patient to call office. Alpa Stratton RN * Telephone Encounter - Raymond Acevedo RN - 01/30/2022 3:32 PM EDT home health clinical supervisor message received from patient. Requests to speak with a nurse from Dr. Katia Wilson's office to go over results from her biopsy and schedule an appointment. * Telephone Encounter - Raymond Acevedo RN - 01/30/2022 3:18 PM EDT Nurse triage voicemail received from patient - would like to know when she can come in for an appointment with Dr. Katia Wilson. Addendum - sent to [facility] in error - resending to [facility] powder monkey team for follow-up. documented in this encounterOhio State Health System08-18-2022 History of Present illness Narrative* Freda Curtis - 03/23/2022 9:27 AM EDT [facility] Refill Assessment Medication(s): Zeposia Patient's current medication list and adherence status to current therapy were reviewed by Specialty Pharmacy clinical pharmacist to identify any new drug interactions or non-compliance to therapy. Therapy continues to be appropriate for disease, patient response, and medical condition. Verification of therapeutic benefit and effectiveness with current therapy was completed. Adverse events, barriers in adherence, and side effects were assessed and addressed if applicable. Will proceed with refill with no changes in therapy - patient progressing towards achieving therapeutic goals based on medication- specific laboratory parameters, disease state markers and outcomes. [facility] Visit Assessment - Neurology: Assessment to use: Refill Non-Clinical Assessment: Patient confirmed: Yes Med/dose confirmed: Yes Supplies needed: N/A Missed doses: No Estimated days supply on hand: 15 Next cycle/dose due: 03/23/2022 Copay amount: 0 Payment confirmed: Yes Address confirmed: Yes Delivery method: FedEx Delivery address: [address] [place] [address] Delivery date: 03/31/2022 Patient has questions: No Additional questions, comments, concerns: Patient has requested that signature requirement be waived for delivery. Patient also updated address and asked to have all old one's on file removed Freda Curtis CPhT [facility] [phone] documented in this encounterOhio State Health System08-09-2022 History of Present illness Narrative* Mallika Simmons RN - 03/14/2022 2:39 PM EDT The patient did not show up for this appointment. Mallika Simmons RN documented in this encounterOhio State Health System07-18-2022 History of Present illness Narrative* Freda Small - 02/20/2022 11:06 AM EDT [facility] Assessment Medication(s): Zeposia Therapy continues to be appropriate for disease, patient response, and medical condition. Verification of therapeutic benefit and effectiveness with current therapy. Adverse events, barriers in adherence, and side effects assessed and addressed. Will proceed with refill with no changes. [facility] Visit Assessment - Neurology: Assessment to use: Refill Non-Clinical Assessment: Patient confirmed: Yes Med/dose confirmed: Yes Supplies needed: N/A Missed doses: No Estimated days supply on hand: 12 Next cycle/dose due: 02/21/2022 Copay amount: 0 Payment confirmed: Yes Address confirmed: Yes Delivery method: FedEx Delivery address: [address] [facility] [address] Delivery date: 02/23/2022 Patient has questions: No Additional questions, comments, concerns: Patient is aware of signature Vaccination Assessment: Date of influenza vaccination reminder: 04/13/2021 Date of most recent vaccination assessment: 04/13/2021 Freda Small CPhT [facility] P: [phone] F: [phone] documented in this encounterOhio State Health System07-05-2022 Miscellaneous Notes* Telephone Encounter - Alpa Stratton RN - 02/07/2022 3:23 PM EDT Patient would like to reschedule her surgery with Dr. Montalvo. Reports it was cancelled, she is not sure why, states that she was in treatment and missed some appointments due to this. Sending to surgery scheduling. Last visit Dr. Montalvo . Alpa Stratton RN * Telephone Encounter - Kelsy Torres - 02/07/2022 10:41 AM EDT Patient would like to speak with someone regarding her surgery being canceled with Dr. Montalvo and what her next steps should be now. She would also like to speak with someone about her biopsy results Please advise patient: [phone] Kelsy Woodson documented in this encounterOhio State Health System06-30-2022 Miscellaneous Notes* Telephone Encounter - Diann Diehl - 02/02/2022 2:55 PM EDTSummary: appointment lvm for patient to call so we can get them scheduled for a social work consult documented in this encounterOhio State Health System06-28-2022 Miscellaneous Notes* Telephone Encounter - Jesenia Vargas RN - 01/31/2022 4:28 PM EDT Called patient Identified by name and date of Reviewed recommendations Patient verbalized understanding and agrees with plan No further concerns Patient's follow up appointment is scheduled for 02/10/2022 with Ness Farrell APRN, CNP * Telephone Encounter - Ness Farrell APRN.CNP - 01/24/2022 4:44 PM EDT Yes, the stiffness and weakness in hands can be due to MS. We should evaluate at her next visit. The following approved medication requests have been transmitted electronically. Signed Prescriptions Disp Refills pregabalin (LYRICA) 300 mg capsule 60 capsule 5 Sig: Take 1 capsule by mouth twice daily for 180 days. AGUSTO Class: C-V FARIBA: No Authorizing Provider: NESS FARRELL APRN.CNP PDMP website checked and validated. All prescriptions have been APPROPRIATELY filled. No suspiciousactivity was identified. 01/24/2022 by Ness Farrell APRN.CNP * Telephone Encounter - Jesenia Vargas RN - 01/24/2022 3:13 PM EDT Called patient Identified by name and date of - Patient reports taking the Lyrica daily. - She had a relaspe and was in a facility in [facility]. Dr. Salguero ... ordered the Lyrica while she was in the facility. Patient needs the Lyrica Patient Concern: - For the past month, the patient's middle and index fingers on the right hand get stiff and bent. She needs to manually straighten them out. - Patient is asking if this happens because of MS? * Telephone Encounter - Ness Farrell APRN.CNP - 01/24/2022 9:46 AM EDT Per [facility], last fill was on 11/24 for 30 day supply. Please check to see if patient has been taking this routinely. Has been off of medication for more than a few days, we should resume at lower dose and taper back up to full dose and I'll send instructions on prescription. Ness Farrell APRN.CNP * Telephone Encounter - Niki Luz - 01/23/2022 3:52 PM EDT Source : call from patient requesting refill. Delivery : e-script Pending Prescriptions Disp Refills PREGABALIN 300 MG CAPSULE 60 capsule 5 Sig: Take 1 capsule by mouth twice daily for 180 days. AGUSTO Class: C-V FARIBA: No DX : G35 Patient last seen 11-25-21 Next Appointment : 02-03-22 Niki Luz documented in this encounterOhio State Health System05-18-2022 Miscellaneous Notes* Telephone Encounter - Ness Clarke RPh - 12/21/2021 10:19 AM EDT Pt will be due for a refill of Zeposia soon. If therapy is being continued, please sign this order request to send refill via eRx to [facility]. Thanks! Pending Prescriptions Disp Refills ZEPOSIA 0.92 MG CAPSULE 90 capsule 3 Sig: Take 1 capsule by mouth once daily FARIBA: No Demi Clarke, CarmenD Clinical Pharmacist, Biologics, Neurology, and Hepatology [facility] ; Pool: P [facility] Pool #: [id number] documented in this encounterOhio State Health System04-29-2022 History of Present illness Narrative* Roosevelt Hernandez MD - 12/02/2021 8:00 AM EDT No show. documented in this encounterOhio State Health System04-20-2022 History of Present illness Narrative* Ermelinda Rothman (Intern) - 11/23/2021 10:09 AM EDT [facility] Assessment Medication(s): zeposia Therapy continues to be appropriate for disease, patient response, and medical condition. Verification of therapeutic benefit and effectiveness with current therapy. Adverse events, barriers in adherence, and side effects assessed and addressed. Will proceed with refill with no changes. [facility] Visit Assessment - Neurology: Assessment to use: Refill Non-Clinical Assessment: Patient confirmed: Yes Med/dose confirmed: Yes Supplies needed: N/A Missed doses: No Estimated days supply on hand: 11 Next cycle/dose due: 11/24/2021 Copay amount: 0 Payment confirmed: Yes Address confirmed: Yes Delivery method: FedEx Delivery address: [address] [facility] [place] [address] Delivery date: 11/29/2021 Patient has questions: No Additional questions, comments, concerns: Patient is aware that signature is required on delivery and confirmed someone will be home Vaccination Assessment: Date of influenza vaccination reminder: 04/13/2021 Date of most recent vaccination assessment: 04/13/2021 Ermelinda Rothman (Intern) documented in this encounterOhio State Health System03-24-2022 Instructions* Patient Instructions* Magdalene Drake PA-C - 10/27/2021 10:31 AM EDT PLAN: - Continue Zeposia - Discuss the following medications for pain with your mental health provider: nortriptyline, venlafaxine, duloxetine - Social work consult for housing issues - updated labs for monitoring on Zeposia - Medications refilled today: Lyrica, Baclofen and Sertraline - Consult to Neuro-ophthalmology - Brain MRI in Jun 2022 - Follow-up in 6 [address] [place] [facility] documented in this encounterOhio State Health System03-24-2022 History of Present illness Narrative* Magdalene Drake PA-C - 10/27/2021 9:35 AM EDT Images from the original note were not included. [facility] FOLLOWUP/ESTABLISHED PATIENT VISIT PRINCIPAL NEUROLOGIC DIAGNOSIS: Multiple Sclerosis DISEASE SUMMARY Date of onset: MAR-2019 Date of diagnosis of MS: MAR-2020 Disease course at onset: Relapsing-Remitting Current disease course: Relapsing-Remitting Previous disease therapies: N/A Current disease therapy: Zeposia (Jul 2020-Present) Most recent MRI brain: 06/17/2021 Most recent MRI cervical spine: 06/17/2021 Most recent MRI thoracic spine: 10/2020 CSF: NA JCV serology result and date: 03/2020 negative Brief Disease History: -Mar 2019 bilateral leg weakness, urinary retention -Jul 2019 hyperacute onset L arm numbness and subtle weakness(dropping items) occurring when lifting a duffle bag -Jul 2019-February 2020 noticed balance difficulty INTERVAL HISTORY: Usual treating team: David/Stephan The patient is unaccompanied. The patient was last seen 07/13/2021 Currently taking Zeposia. Since the patient's last visit the patient reports overall feeling worse. Issues with current MS therapy: Tolerating medication without side effects. Pain throughout her whole body, sometimes burning/stabbing Burning in both feet is very bothersome Difficult to stand and walk due to pain Using medicinal marijuana for pain Currently staying in [employer] in [facility] Her apartment is under new ownership and she was evicted Unable to find new housing, was sleeping outside for 3 days She is trying to stay clean, she states she's a previous drug user Reports 4 falls in the last month Balance is worse recently She was doing PT in [place] at a sober house She was asked to leave the sober house Symptoms worse since that time She just got approved for section 8 housing Follows with psychology locally Trying to get in touch with her PCP for med refills Taking Sertraline 100mg daily for mood Continues to have intermittent transient complete vision loss OU lasting 5-10 seconds, losing focusin vision too. Also reports intermittent double vision and blurry vision. SUBJECTIVE & REVIEW OF SYSTEMS: Refer to patient-entered data. Mood: Worse, see HPI Spasticity: baclofen 20mg Bladder: normal Bowel: Constipation intermittent Neuro-QoL Functions (higher = better functioning) Office Visit from 10/27/[address] [facility] Office Visit from 07/13/[address] [facility] Upper Extremity Domain T Score 42.58 47.21 Lower Extremity Domain T Score 36.94 37.53 Cognitive Function Domain T Score 52.55 45.93 Positive Affect Well Being T Score Ability To Participate In Social Roles T Score 37.21 44.12 Satisfaction With Social Roles T Score 40.61 50.16 Neuro-QoL Symptoms (higher = worse symptoms) Office Visit from 10/27/[address] [facility] Office Visit from 07/13/[address] [facility] Sleep Domain T Score 67.68 68.05 Fatigue Domain T Score 50.45 50.45 Anxiety Domain T Score 56.09 61.92 Depression Domain T Score 55.43 56.92 Stigma Domain T Score 44.69 52.21 Emotional Behavior Dyscontrol T Score *NeuroQoL is a multi-domain patient-reported quality of life questionnaire. PHQ-9 Office Visit from 01/29/2020 in Neurology PHQ-9 Score 18 *PHQ-9 is a questionnaire for depressive symptoms, with scores 0-4 indicating none, 5-9 mild, 10-14moderate, 15-19 moderately severe, and 20-27 severe symptoms. PROMIS-10 Office Visit from 01/29/2020 in Neurology Global Physical Health T Score 29.6 Global Mental Health T Score 33.8 0-10 Standard Pain Scale 3 *PROMIS-10 is a patient-reported quality of life measure, typically reported as physical and mentaldomains. Here scores are expressed as percentiles, where the lowest possible score is one, the highest possible score is 99, and 50 is average. PAST HISTORY was reviewed and updated: PAST MEDICAL HISTORY Diagnosis Date Cocaine use reports relapsed in 2019 but now sober again Depression Multiple sclerosis ([facility]) Smoking Stroke (cerebrum) ([facility]) 2016 had trouble walking PAST SURGICAL HISTORY Procedure Laterality Date >=3 MEDICATIONS and ALLERGIES were reviewed and updated. SOCIAL HISTORY was reviewed and updated: Living situation: Living at home without assistance Employment Status / Disability: Disabled, permanently or temporarily OBJECTIVE: VITALS & WELLNESS: BP 128/76 Pulse 66 Ht 151.1 cm (4' 11.5 ) Wt 93 kg (205 lb) LMP 04/28/2020 BMI 40.71 kg/m Social History Tobacco Use Smoking status: Current Some Day Smoker Smokeless tobacco: Never Used Multiple Sclerosis Performance Test Office Visit from 10/27/[address] [facility] Office Visit from 07/13/[address] [facility] Processing Speed Total Number Correct 40 45 Low-contrast letter acuity test-2.5 percent opacity 38 33 Low-contrast letter acuity test-100 percent opacity 60 60 Dominant hand MDT Left Hand Time 20.49 MDT Right Hand Time 20.92 Walking Speed Test (25 feet) 4.57 EXAM: General Appearance: Well appearing, alert, in no acute distress, well- hydrated, well nourished. Mental status evaluation during the interview and examination showed normal level of consciousness,orientation, language, memory, praxis, and higher intellectual function Affect: Normal Extraocular movements: full, without EVIN Facial movements: Intact bilaterally Speech: normal Muscle strength (#/5): Right Left Upper Extremity: Deltoids 5 5 Biceps 4+ 5 Triceps 4+ 5 Admeasurer 4+ 5 Dorsal interossei 4 5 Lower extremity: Iliopsoas 4+ 4+ Quadriceps 4+ 4+ Hamstrings 4+ 5 Tibialis anterior 4+ 5 Gastrocnemius 4+ 5 Motor exam in LE limited by report of pain Coordination: Upper extremity dexterity and rapid movements: Normal bilaterally Finger-nose: no dysmetria; coordination intact Standing balance: Impaired Standard gait: circumduction at right hip and antalgic component. Assistive device: independent RESULTS: Monitoring labs: No results found for: WBC, HB, HCT, PLT, ABSLYMPH No results found for: VITD25 No results found for: AST, GLUC, BUN, CREAT, NA, K, CHLOR, ALTNo results found for: JCVAB, JCVIND No results found for: [id number], ENHANCINGLES, CERVICALNEW, SPINEENHACIN ASSESSMENT/PLAN: - Bryan Cruz is a 50 year old female with Multiple Sclerosis on Zeposia which she tolerateswell with good compliance. She has continued on Zeposia with PAP. She had updated MRI imaging in Jun 2021 which was reported as stable, reviewed by Dr. Hernandez at her last visit. She is due for updated labs to monitor on Zeposia and will obtain these locally. Her main concern today is her burning neuropathic pain throughout her body, worse at her feet and affecting her walking ability. She reports using medicinal marijuana and taking Lyrica for the pain with some relief. At last visit Dr. Hernandez recommended discussing medication options for neuropathic pain with her mental health provider, (nortriptyline, venlafaxine, duloxetine) to see if they would be appropriate in the setting of taking with an SSRI (sertraline). She plans to follow up with her mental health provider next week and will notify us of the recommendations. She recently was evicted from her apartment, now homeless and staying at [employer] in [facility]. She was recently approved for section 8 housing and hopes tofind a permanent living arrangement soon. Referred to for further assistance. Recommended ophthalmology consult for transient vision changes with loss of vision, blurry vision and double vision. Exam: - Stable, continue with current IMDT. The prescribed disease modifying therapy for MS is having theexpected benefit in this patient based on imaging and clinical criteria, and will be continued or refilled, with planned follow-up at approximately 6-month intervals to continue to assess response gillian ongoing basis. PLAN: - Continue Zeposia - Discuss the following medications for pain with your mental health provider: nortriptyline, venlafaxine, duloxetine - Social work consult for housing issues - updated labs for monitoring on Zeposia - Medications refilled today: Lyrica, Baclofen and Sertraline - Consult to Neuro-ophthalmology - Brain MRI in Jun 2022 - Follow-up in 6 months at [facility] I spent a total of 45 minutes on the date of the service which included preparing to see the patient, [id number] patient care, completing clinical documentation, obtaining and/or reviewing separately obtained history, performing a medically appropriate examination, counseling and educating the pat ient/family/caregiver and ordering medications, tests, or procedures. Magdalene Drake PA-C documented in this encounterOhio State Health System02-15-2022 Evaluation note* Encounter Date Diagnosis Assessment Notes Treatment Notes Treatment Clinical Notes Sep, Pain in unspecified foot (ICD-10 - M79.673) will set up with podiatry, i do think it is plantar faciatitis, did prednisone she reports it did not work. she will freeze water bottle and roll over plantar aspect. will get into podiatry she is interested in inserts. does not want injections. Sep, Uterine leiomyoma, unspecified location (ICD-10 - D25.9) pt very confused about biopsy results. we called special delivery clerk office Dr. Montalvo and got her appt for 09/22 to go over everything. Circular Other 01-11-2022 Evaluation note* Encounter Date Diagnosis Assessment Notes Treatment Notes Treatment Clinical Notes Aug, MS (multiple sclerosis) (ICD-10 - G35) Circular Other 11-19-2021 Evaluation note* Encounter Date Diagnosis Assessment Notes Treatment Notes Treatment Clinical Notes Jun, Sweating profusely (ICD-10 - R61) exposure to covid. neg covid test. flu test was positive for A. no cough no real other symptoms. she will continue to monitor. Jun, MS (multiple sclerosis) (ICD-10 - G35) Follows with [facility] early July. She is using more baclofen than she should. I discussed maximum 3 a day. She will discuss this with them at that time. She will discuss the numbness tingling in her hands and overall paresthesias. Jun, Pain in right foot (ICD-10 - M79.671) Unclear cause of pain. Generalized foot pain. I did also recommend freezing a waterbottle and stretching for over that. She will call if not improving. I did recommend NSAIDs but that is on her allergy list so will not send in. Will do round of steroids. Jun, Pain in left foot (ICD-10 - M79.672) As above. Jun, Uterine leiomyoma, unspecified location (ICD-10 - D25.9) She is currently seen local [facility] for fibroids. She does not want to continue with them because she does believe she needs a hysterectomy and she does not want operation at our local hospital. She would she requested to go to [place] we will place a referral. Circular Other Evaluation note* Diagnosis Multiple sclerosis (HCC)- Primary Multiple sclerosis Neuropathic pain Neuralgia, neuritis, and radiculitis, unspecified Spasticity Abnormal involuntary movements Blurry vision, bilateral Other specified visual disturbances Anxiety and depression Dysthymic disorder Homelessness Lack of housing Medication monitoring encounter Encounter for therapeutic drug monitoring Abnormal uterine bleeding (AUB) Fibroids Leiomyoma of uterus, unspecified [facility] Diagnosis NO SHOW Abnormal uterine bleeding (AUB) Fibroids Leiomyoma of uterus, unspecified [facility] Diagnosis Multiple sclerosis (HCC)- Primary Multiple sclerosis Abnormal uterine bleeding (AUB) Fibroids Leiomyoma of uterus, unspecified documented in this encounter [facility] noteNo [facility] [employer] Other Evaluation note* Diagnosis Neuropathic pain Neuralgia, neuritis, and radiculitis, unspecified Multiple sclerosis (HCC) Multiple sclerosis documented in this encounter [facility] note* Diagnosis Multiple sclerosis (HCC)- Primary Multiple sclerosis documented in this encounter [facility] note* Diagnosis NO SHOW- Primary documented in this encounter [facility] note* Diagnosis Multiple sclerosis (HCC)- Primary Multiple sclerosis documented in this encounter [facility] note* Diagnosis Multiple sclerosis (HCC)- Primary Multiple sclerosis documented in this encounter [facility] note* Diagnosis Neuropathic pain Neuralgia, neuritis, and radiculitis, unspecified Multiple sclerosis (HCC) Multiple sclerosis documented in this encounter [facility] note* Diagnosis Multiple sclerosis (HCC)- Primary Multiple sclerosis Abnormal uterine bleeding (AUB) Fibroids Leiomyoma of uterus, unspecified documented in this encounter [facility] note* Diagnosis Multiple sclerosis (HCC)- Primary Multiple sclerosis documented in this encounter [facility] note* Diagnosis Multiple sclerosis (HCC)- Primary Multiple sclerosis documented in this encounter [facility] note* Diagnosis NO SHOW- Primary documented in this encounter [facility] note* Diagnosis Educational circumstances- Primary Educational circumstance documented in this encounter [facility] note* Diagnosis Pre-op evaluation- Primary Preoperative examination, unspecified Multiple sclerosis (HCC) Multiple sclerosis Mixed hyperlipidemia Current smoker Tobacco use disorder Recurrent major depressive disorder, remission status unspecified (HCC) Obesity, Class III, BMI >= 40 Morbid obesity Suicidal ideation History of cocaine abuse (HCC) Cocaine abuse, in remission Cerebrovascular accident (CVA), unspecified mechanism (HCC) documented in this encounter [facility] note* Diagnosis Multiple sclerosis (HCC)- Primary Multiple sclerosis Abnormal uterine bleeding (AUB) Fibroids Leiomyoma of uterus, unspecified documented in this encounter [facility] note* Diagnosis Onset Date Resolution Status Conjunctivitis acute Leukocytosis acute Mass of uterus acute Multiple sclerosis exacerbation acute [facility] Work Phone: Evaluation note* Diagnosis Multiple sclerosis (HCC)- Primary Multiple sclerosis Abnormal uterine bleeding (AUB) Fibroids Leiomyoma of uterus, unspecified [facility]* Diagnosis Encounter for pre-operative laboratory testing- Primary Preoperative examination, unspecified Abnormal uterine bleeding (AUB) Fibroids Leiomyoma of uterus, unspecified [facility]* Diagnosis Neuropathic pain Neuralgia, neuritis, and radiculitis, unspecified Multiple sclerosis (HCC) Multiple sclerosis Abnormal uterine bleeding (AUB) Fibroids Leiomyoma of uterus, unspecified [facility] this [facility]* Diagnosis NO SHOW- Primary [facility] Diagnosis Medication monitoring encounter- Primary Encounter for therapeutic drug monitoring Multiple sclerosis (HCC) Multiple sclerosis Vitamin D deficiency Unspecified vitamin D deficiency [facility] this [facility]* Diagnosis Multiple sclerosis (HCC)- Primary Multiple sclerosis [facility] Diagnosis Multiple sclerosis (HCC)- Primary Multiple sclerosis documented in this [facility]* Diagnosis Multiple sclerosis (HCC)- Primary Multiple sclerosis Medication monitoring encounter Encounter for therapeutic drug monitoring Vitamin D deficiency Unspecified vitamin D deficiency [facility] in this [facility] noteNo assessment [facility]: Evaluation note* Diagnosis Multiple sclerosis (HCC)- Primary Multiple sclerosis Spasticity Abnormal involuntary movements Neuropathic pain Neuralgia, neuritis, and radiculitis, unspecified Anxiety and depression Dysthymic disorder Encounter for medication monitoring Encounter for therapeutic drug monitoring Hypovitaminosis D Unspecified vitamin D deficiency documented in this encounter [facility] note* Diagnosis Multiple sclerosis (HCC)- Primary Multiple sclerosis Encounter for medication monitoring Encounter for therapeutic drug monitoring Vitamin D deficiency Unspecified vitamin D deficiency documented [facility] this [facility]* Diagnosis Multiple sclerosis (HCC)- Primary Multiple sclerosis Demyelinating disease of central nervous system (HCC) Demyelinating disease of central nervous system, unspecified Neuropathic pain Neuralgia, neuritis, and radiculitis, unspecified Vitamin D deficiency Unspecified vitamin D deficiency Spasticity Abnormal involuntary movements Constipation, unspecified constipation type History of dry mouth Disturbance of salivary secretion Urinary retention Retention of urine, unspecified documented [facility] this [facility]* Diagnosis Chronic bilateral low back pain without sciatica- Primary Breast pain in female Mastodynia Multiple sclerosis (HCC) Multiple sclerosis Current every day smoker Tobacco use disorder Morbid obesity with BMI of 40.0-44.9, adult (HCC) Morbid obesity [facility] Diagnosis Multiple sclerosis exacerbation (HCC)- Primary Multiple sclerosis documented in this encounter [facility] note* Diagnosis Multiple sclerosis exacerbation (HCC)- Primary Multiple sclerosis documented in this encounter [facility] note* Diagnosis Multiple sclerosis (HCC)- Primary Multiple sclerosis Cognitive communication deficit documented [facility] this [facility]* Diagnosis Multiple sclerosis (HCC)- Primary Multiple sclerosis Rash Rash and other nonspecific skin eruption documented [facility] this [facility]* Diagnosis Rash Rash and other nonspecific skin eruption [facility] Diagnosis Neuropathic pain Neuralgia, neuritis, and radiculitis, unspecified Multiple sclerosis (HCC) Multiple sclerosis [facility] Diagnosis Fibroid- Primary Leiomyoma of uterus, unspecified [facility] Diagnosis Multiple sclerosis (HCC)- Primary Multiple sclerosis [facility] Diagnosis Multiple sclerosis (HCC) Multiple sclerosis [facility] Diagnosis Spasticity Abnormal involuntary movements [facility] Diagnosis Multiple sclerosis (HCC)- Primary Multiple sclerosis [facility] Diagnosis Multiple sclerosis (HCC) Multiple sclerosis Neuropathic pain Neuralgia, neuritis, and radiculitis, unspecified [facility] Diagnosis Multiple sclerosis (HCC)- Primary Multiple sclerosis [facility] Diagnosis Multiple sclerosis (HCC)- Primary Multiple sclerosis Encounter for medication monitoring Encounter for therapeutic drug monitoring Neuropathic pain Neuralgia, neuritis, and radiculitis, unspecified Vitamin D deficiency Unspecified vitamin D deficiency Other fatigue Rash Rash and other nonspecific skin eruption Snoring Other dyspnea and respiratory abnormality Mixed hyperlipidemia Spasticity Abnormal involuntary movements History of dry mouth Disturbance of salivary secretion [facility]* Diagnosis Multiple sclerosis (HCC) Multiple sclerosis [facility] Diagnosis Multiple sclerosis (HCC)- Primary Multiple sclerosis [facility]* Diagnosis Encounter for Papanicolaou smear for cervical cancer screening- Primary Encounter for gynecological examination (general) (routine) without abnormal findings PMB (postmenopausal bleeding) Postmenopausal bleeding Encounter for screening mammogram for malignant neoplasm of breast Other screening mammogram [facility]* Diagnosis Multiple sclerosis (HCC)- Primary Multiple sclerosis [facility] Diagnosis Pre-op evaluation- Primary Preoperative examination, unspecified Multiple sclerosis (HCC) Multiple sclerosis Mixed hyperlipidemia Current smoker Tobacco use disorder Recurrent major depressive disorder, remission status unspecified (HCC) Obesity, Class III, BMI >= 40 Morbid obesity Suicidal ideation History of cocaine abuse (HCC) Cocaine abuse, in remission Cerebrovascular accident (CVA), unspecified mechanism (HCC) Multiple sclerosis (HCC)- Primary Multiple sclerosis [facility] Diagnosis Pre-op evaluation- Primary Preoperative examination, unspecified Multiple sclerosis (HCC) Multiple sclerosis Mixed hyperlipidemia Current smoker Tobacco use disorder Recurrent major depressive disorder, remission status unspecified (HCC) Obesity, Class III, BMI >= 40 Morbid obesity Suicidal ideation History of cocaine abuse (HCC) Cocaine abuse, in remission Cerebrovascular accident (CVA), unspecified mechanism (HCC) Multiple sclerosis (HCC)- Primary Multiple sclerosis Pain in joint of right hand Pain in joint, hand Chronic bilateral low back pain without sciatica Neuropathic pain Neuralgia, neuritis, and radiculitis, unspecified History of dry mouth Disturbance of salivary secretion Vitamin D deficiency Unspecified vitamin D deficiency [facility]* Diagnosis Pre-op evaluation- Primary Preoperative examination, unspecified Multiple sclerosis (HCC) Multiple sclerosis Mixed hyperlipidemia Current smoker Tobacco use disorder Recurrent major depressive disorder, remission status unspecified (HCC) Obesity, Class III, BMI >= 40 Morbid obesity Suicidal ideation History of cocaine abuse (HCC) Cocaine abuse, in remission Cerebrovascular accident (CVA), unspecified mechanism (HCC) Pain in joint of right hand Pain in joint, hand Multiple sclerosis (HCC) Multiple sclerosis [facility] Diagnosis Pre-op evaluation- Primary Preoperative examination, unspecified Multiple sclerosis (HCC) Multiple sclerosis Mixed hyperlipidemia Current smoker Tobacco use disorder Recurrent major depressive disorder, remission status unspecified (HCC) Obesity, Class III, BMI >= 40 Morbid obesity Suicidal ideation History of cocaine abuse (HCC) Cocaine abuse, in remission Cerebrovascular accident (CVA), unspecified mechanism (HCC) Multiple sclerosis (HCC)- Primary Multiple sclerosis documented in this encounter [facility] note* Diagnosis Pre-op evaluation- Primary Preoperative examination, unspecified Multiple sclerosis (HCC) Multiple sclerosis Mixed hyperlipidemia Current smoker Tobacco use disorder Recurrent major depressive disorder, remission status unspecified (HCC) Obesity, Class III, BMI >= 40 Morbid obesity Suicidal ideation History of cocaine abuse (HCC) Cocaine abuse, in remission Cerebrovascular accident (CVA), unspecified mechanism (HCC) Multiple sclerosis (HCC) Multiple sclerosis Neuropathic pain Neuralgia, neuritis, and radiculitis, unspecified documented in this encounter [facility]* Diagnosis Pre-op evaluation- Primary Preoperative examination, unspecified Multiple sclerosis (HCC) Multiple sclerosis Mixed hyperlipidemia Current smoker Tobacco use disorder Recurrent major depressive disorder, remission status unspecified (HCC) Obesity, Class III, BMI >= 40 Morbid obesity Suicidal ideation History of cocaine abuse (HCC) Cocaine abuse, in remission Cerebrovascular accident (CVA), unspecified mechanism (HCC) Multiple sclerosis (HCC) Multiple sclerosis documented in this encounter [facility] note* Diagnosis Pre-op evaluation- Primary Preoperative examination, unspecified Multiple sclerosis (HCC) Multiple sclerosis Mixed hyperlipidemia Current smoker Tobacco use disorder Recurrent major depressive disorder, remission status unspecified (HCC) Obesity, Class III, BMI >= 40 Morbid obesity Suicidal ideation History of cocaine abuse (HCC) Cocaine abuse, in remission Cerebrovascular accident (CVA), unspecified mechanism (HCC) PMB (postmenopausal bleeding) Postmenopausal bleeding documented in this encounter [facility] note* Diagnosis Pre-op evaluation- Primary Preoperative examination, unspecified Multiple sclerosis (HCC) Multiple sclerosis Mixed hyperlipidemia Current smoker Tobacco use disorder Recurrent major depressive disorder, remission status unspecified (HCC) Obesity, Class III, BMI >= 40 Morbid obesity Suicidal ideation History of cocaine abuse (HCC) Cocaine abuse, in remission Cerebrovascular accident (CVA), unspecified mechanism (HCC) PMB (postmenopausal bleeding) Postmenopausal bleeding documented [facility] this [facility]* Diagnosis Pre-op evaluation- Primary Preoperative examination, unspecified Multiple sclerosis (HCC) Multiple sclerosis Mixed hyperlipidemia Current smoker Tobacco use disorder Recurrent major depressive disorder, remission status unspecified (HCC) Obesity, Class III, BMI >= 40 Morbid obesity Suicidal ideation History of cocaine abuse (HCC) Cocaine abuse, in remission Cerebrovascular accident (CVA), unspecified mechanism (HCC) Fibroids- Primary Leiomyoma of uterus, unspecified Prediabetes Other abnormal glucose [facility] Diagnosis Pre-op evaluation- Primary Preoperative examination, unspecified Multiple sclerosis (HCC) Multiple sclerosis Mixed hyperlipidemia Current smoker Tobacco use disorder Recurrent major depressive disorder, remission status unspecified (HCC) Obesity, Class III, BMI >= 40 Morbid obesity Suicidal ideation History of cocaine abuse (HCC) Cocaine abuse, in remission Cerebrovascular accident (CVA), unspecified mechanism (HCC) Multiple sclerosis (HCC) Multiple sclerosis Neuropathic pain Neuralgia, neuritis, and radiculitis, unspecified documented in this encounter [facility]* Diagnosis Pre-op evaluation- Primary Preoperative examination, unspecified Multiple sclerosis (HCC) Multiple sclerosis Mixed hyperlipidemia Current smoker Tobacco use disorder Recurrent major depressive disorder, remission status unspecified (HCC) Obesity, Class III, BMI >= 40 Morbid obesity Suicidal ideation History of cocaine abuse (HCC) Cocaine abuse, in remission Cerebrovascular accident (CVA), unspecified mechanism (HCC) Multiple sclerosis (HCC) Multiple sclerosis documented in this encounter [facility] note* Diagnosis Pre-op evaluation- Primary Preoperative examination, unspecified Multiple sclerosis (HCC) Multiple sclerosis Mixed hyperlipidemia Current smoker Tobacco use disorder Recurrent major depressive disorder, remission status unspecified (HCC) Obesity, Class III, BMI >= 40 Morbid obesity Suicidal ideation History of cocaine abuse (HCC) Cocaine abuse, in remission Cerebrovascular accident (CVA), unspecified mechanism (HCC) Multiple sclerosis (HCC)- Primary Multiple sclerosis documented in this encounter [facility] note* Diagnosis Multiple sclerosis exacerbation (HCC)- Primary Multiple sclerosis Bradycardia, unspecified Dyspnea, unspecified type Multiple sclerosis exacerbation (HCC) Multiple sclerosis Cardiac insufficiency (HCC) Congestive heart failure, unspecified Current every day smoker History of cocaine abuse (HCC) Cocaine abuse, in remission Major depressive disorder in partial remission, unspecified whether recurrent (HCC) Vitamin D deficiency Unspecified vitamin D deficiency Hyperlipidemia, unspecified hyperlipidemia type Mixed hyperlipidemia Shortness of breath History of cocaine abuse (HCC) Cocaine abuse, in remission Current every day smoker Morbid obesity with BMI of 40.0-44.9, adult Vitamin D deficiency Unspecified vitamin D deficiency Hyperlipidemia, unspecified hyperlipidemia type Dyspnea, unspecified type Cardiac insufficiency (HCC) Congestive heart failure, unspecified Major depressive disorder in partial remission, unspecified whether recurrent (HCC) documented in this encounter [facility] note* Diagnosis Pre-op evaluation- Primary Preoperative examination, unspecified Multiple sclerosis (HCC) Multiple sclerosis Mixed hyperlipidemia Current smoker Tobacco use disorder Recurrent major depressive disorder, remission status unspecified (HCC) Obesity, Class III, BMI >= 40 Morbid obesity Suicidal ideation History of cocaine abuse (HCC) Cocaine abuse, in remission Cerebrovascular accident (CVA), unspecified mechanism (HCC) Multiple sclerosis (HCC) Multiple sclerosis Encounter for medication monitoring Encounter for therapeutic drug monitoring documented in this encounter [facility] note* Diagnosis Pre-op evaluation- Primary Preoperative examination, unspecified Multiple sclerosis (HCC) Multiple sclerosis Mixed hyperlipidemia Current smoker Tobacco use disorder Recurrent major depressive disorder, remission status unspecified (HCC) Obesity, Class III, BMI >= 40 Morbid obesity Suicidal ideation History of cocaine abuse (HCC) Cocaine abuse, in remission Cerebrovascular accident (CVA), unspecified mechanism (HCC) Multiple sclerosis (HCC)- Primary Multiple sclerosis documented in this encounter [facility] note* Diagnosis Pre-op evaluation- Primary Preoperative examination, unspecified Multiple sclerosis (HCC) Multiple sclerosis Mixed hyperlipidemia Current smoker Tobacco use disorder Recurrent major depressive disorder, remission status unspecified (HCC) Obesity, Class III, BMI >= 40 Morbid obesity Suicidal ideation History of cocaine abuse (HCC) Cocaine abuse, in remission Cerebrovascular accident (CVA), unspecified mechanism (HCC) Multiple sclerosis (HCC)- Primary Multiple sclerosis Neuropathic pain Neuralgia, neuritis, and radiculitis, unspecified Chronic bilateral low back pain without sciatica Fibroids Leiomyoma of uterus, unspecified Vitamin D deficiency Unspecified vitamin D deficiency documented in this encounter [facility] note* Diagnosis Pre-op evaluation- Primary Preoperative examination, unspecified Multiple sclerosis (HCC) Multiple sclerosis Mixed hyperlipidemia Current smoker Tobacco use disorder Recurrent major depressive disorder, remission status unspecified (HCC) Obesity, Class III, BMI >= 40 Morbid obesity Suicidal ideation History of cocaine abuse (HCC) Cocaine abuse, in remission Cerebrovascular accident (CVA), unspecified mechanism (HCC) Multiple sclerosis (HCC)- Primary Multiple sclerosis [facility] - [facility]* Type Description Date Medical History High Cholesterol Medical History depression Medical History stroke Medical History multiple sclerosis Surgical History Hospitalization History see above Circular Other History general Narrative - ReportedNort [employer] Other Reason for referral (narrative)* Diagnostic Procedure Only (Routine) - Authorized Specialty Diagnoses / Procedures Referred By Contac t Referred To Contact [facility] Diagnoses Breast pain in female Procedures [facility] DI[facility]NOST[facility] BILATERAL DIAGNOSTIC MAMMOGRAPHY COMPUTER-AIDED DETCJ BI Sandro Burgos MD [address] [place] [address] [facility] [address] [place] [address] Referral ID Status Reason Start Date Expiration Date Visits Requested Visits Authorized [id number] Authorized Auto-Generat ed Referral 3 08/17/2024 1 1 [facility] for referral (narrative)* Diagnostic Procedure Only (Routine) - Pending Review Specialty Diagnoses / Procedures Referred By Contac t Referred To Contact [facility] Diagnoses Fibroid Procedures PELVIC US I US PELVIC NONOBSTETRIC REAL-TIME IMAGE COMPLETE Jahaira Denis APRN.COMPENSATION CONSULTING MANAGER [address] [place] [address] [facility] [address] [place] [address] Referral ID Status Reason Start Date Expiration Date Visits Requested Visits Authorized [id number] Pending Review Auto-Generat ed Referral 09/17/2023 09/16/2024 1 1 [facility] for referral (narrative)* Diagnostic Procedure Only (Routine) - Authorized Specialty Diagnoses / Procedures Referred By Contac t Referred To Contact [facility] Diagnoses PMB (postmenopausal bleeding) Procedures PELVIC US I US PELVIC NONOBSTETRIC REAL-TIME IMAGE COMPLETE Freda Hernandez APRN.COMPENSATION CONSULTING MANAGER [address] [place] [address] [facility] [address] [place] [address] Referral ID Status Reason Start Date Expiration Date Visits Requested Visits Authorized [id number] Authorized Auto-Generat ed Referral 06/05/2025 1 1 [facility] for referral (narrative)* Tests/Procedures (Routine) Specialty Diagnoses / Procedures Referred By Contact Referred To Contact Cardiovascular Testing Yousif Gillette MD [address] [address] Phone: tel: fax: [facility] CARD NON INVASIVE [address] [place] [address] Phone: tel: Referral ID Status Reason Start Date Expiration Date Visits Re quested Visits Authorized Scheduling Instructions 1. Take your medicines as prescribed by your doctor. (If you take a water pill , do not take it the morning of the test. You may take it when you return home). 2. You may eat meals and drink fluids at your normal times. 3. This test takes approximately one hour. 4. Please call the [facility] at [phone] (BEAT) if you are unable to keep your appointment. Question Answer Clinical Indication for procedure evaluate for diastolic or systolic dysfunciton due to SOB/dyspnea What day do you want the patient scheduled for? 07/07/2024 Comments Insert IV access & flush with 3ml of 0.9% sodium chloride PRN to keep patent, if not already present for LV contrast with Definity and/or saline contrast. Please indicate height and weight if it does not appear below. Blood pressure 138/58, pulse 62, temperature 97.5 F (36.4 C), resp. rate 16, SpO2 100%. ACUTE32/32 @PROBHOSP@ [facility] for visit Narrative* Treatment Plan and Therapy Plan (Routine) - Pending Review Specialty Diagnoses / Procedures Referred By Adam garvey Referred To Contact Diagnoses Multiple sclerosis exacerbation (HCC) Jeffery Cantu, [address] [place] [address] [facility] [address] [place] [id number] Referral ID Status Reason Start Date Expiration Date V isits Requested Visits Authorized [id number] Pending Review 08/14/2023 08/13/2024 1 1 [facility] for visit Narrative* Diagnostic Procedure Only (Routine) - Closed Specialty Diagnoses / Procedures Referred By Contac t Referred To Contact [facility] Diagnoses PMB (postmenopausal bleeding) Procedures PELVIC US WHI US PELVIC NONOBSTETRIC REAL-TIME IMAGE COMPLETE Freda Hernandez, [employer] IMPREGNATOR.COMPENSATION CONSULTING MANAGER [address] [place] [address] [facility] [address] [place] [address] Referral ID Status Reason Start Date Expiration Date V isits Requested Visits Authorized [id number] Closed Auto-Generate d Referral 06/05/2024 06/05/2025 1 1 [facility] Summary Purpose Family History No Family History Records Found Relationship Condition Age at Onset Recorded Date/T ayala Not Specified Sleep apnea Unknown Type 2 diabetes mellitus Unknown Exacerbation of multiple sclerosis Unknow n Hypertension Unknown Relationship Condition Age at Onset Recorded Date/T ayala Not Specified Sleep apnea Unknown Type 2 diabetes mellitus Unknown Exacerbation of multiple sclerosis Unknow n father Family history of emphysema Unknown Not Specified Myocardial infarction Unknown Unknown Hypertension Unknown Diabetes mellitus Unknown Heart disease Unknown Relationship Condition Age at Onset Recorded Date/T ayala Not Specified Sleep apnea Unknown Type 2 diabetes mellitus Unknown Exacerbation of multiple sclerosis Unknow n father Family history of emphysema Unknown mother Myocardial infarction Unknown Unknown Hypertension Unknown Diabetes mellitus Unknown Heart disease Unknown Advance Directives No Advanced Directives Records Found Advance Directive Response Recorded Date/ Time Advance Directives No January 18 1:44pm Advance Directive Response Recorded Date/ Time Advance Directives No January 18 2:44pm Date Activated Date Inactivated Comments 07/07/2024 4:46 PM Question Answer Comments Documentation of decision pr ocess for this code status: Discussed with patient or surrogate. This is the code status chosen by the patient/surrogate. Date Activated Date Inactivated Comments 07/07/2024 4:46 PM 07/10/2024 12:02 PM Question Answer Comments Documentation of decision pr ocess for this code status: Discussed with patient or surrogate. This is the code status chosen by the patient/surrogate. Reason for Referral Specialty Diagnoses / Procedures Referred By Adam t Referred To Contact Diagnoses Multiple sclerosis (HCC) Anxiety and depression Homelessness Procedures CONSULT TO PSYCHIATRY OFFICE/OUTPATIENT [facility] 60-74 MINUTES Magdalene Drake PA-C [address] [place] [address] Referral ID Status Reason Start Date Expiration Date Visits Requested Visits Authorized [id number] Pending Review PCP Requested Referral 10/27/2021 10/27/2022 1 1 Specialty Diagnoses / Procedures Referred By Adam t Referred To Contact Ophthalmology Diagnoses Multiple sclerosis (HCC) Blurry vision, bilateral Procedures CONSULT TO OPHTHALMOLOGY OFFICE/OUTPATIENT [facility] 60-74 MINUTES Magdalene Drake PA-C [address] [place] [address] Referral ID Status Reason Start Date Expiration Date Visits Requested Visits Authorized [id number] Authorized PCP Requested Referral 10/27/2021 10/27/2022 1 1 Reason * webster, uterine fi broids Diagnosis 1 Uterine leiomyoma, u nspecified location (D25.9) Referral Organization [facility] [place] Referring Provider First Name Rina Referring Provider Last Name [facility] Referring Provider Specialty Family Medi cine Referred Organization Unknown Facility Referred Provider Specialty OB - Gynecol ogy Referral Priority Routine General Notes Patricia Tate 11:03:33 AM >referral received, spoke with pt, she would like to do some research to see which provider she would like to see. Pt will call me back next week Reason heel pain bilateral, interested in inserts Diagnosis 1 Pain in unspecified foot (M79.673) Referral Organization [facility] Referring Provider First Name Rina Referring Provider Last Name [facility] Referring Provider Specialty Family Medi cine Referred Organization Unknown Facility Referred Provider Specialty Podiatry - S urgical Chiropody Referral Priority Routine Specialty Diagnoses / Procedures Referred By Adam t Referred To Contact Psychology Diagnoses Multiple sclerosis (HCC) Anxiety and depression Procedures CONSULT TO PSYCHOLOGY OFFICE/OUTPATIENT [facility] 60-74 MINUTES Ellen Rothman MD [address] [place] [address] Referral ID Status Reason Start Date Expiration Date Visits Requested Visits Authorized [id number] Pending Review PCP Requested Referral 04/18/2023 04/17/2024 1 1 Specialty Diagnoses / Procedures Referred By Contac t Referred To Contact MR IMAGING Diagnoses Multiple sclerosis (HCC) Encounter for medication monitoring Procedures MRI CERVICAL SPINE WO/W IVCON MRI SPINAL CANAL CERVICAL W/O & W/CONTR MATRL Ellen Rothman MD [address] [facility] [place] [id number] [facility] [place] [address] Referral ID Status Reason Start Date Expiration Date Visits Requested Visits Authorized [id number] Pending Review Auto-Generat ed Referral 04/18/2023 05/17/2024 1 1 Specialty Diagnoses / Procedures Referred By Jimboac t Referred To Contact MR IMAGING Diagnoses Multiple sclerosis (HCC) Encounter for medication monitoring Procedures MRI BRAIN WO/W IVCON MRI BRAIN BRAIN STEM W/O W/CONTRAST MATERIAL Ellen Rothman MD [address] [place] [phone] Imaging [place] [address] Referral ID Status Reason Start Date Expiration Date Visits Requested Visits Authorized [id number] Pending Review Auto-Generat ed Referral 04/18/2023 05/17/2024 1 1 Specialty Diagnoses / Procedures Referred By Contac t Referred To Contact FAMILY MEDICINE Diagnoses Multiple sclerosis (HCC) Anxiety and depression Encounter for medication monitoring Procedures ESTABLISH WITH PRIMARY CARE NEW PATIENT OFFICE/OUTPATIENT [facility] MDM 60-74 MINUTES Ellen Rothman MD [address] [place] [address] [facility] [address] [place] [id number] Referral ID Status Reason Start Date Expiration Date Visits Requested Visits Authorized [id number] Pending Review PCP Requested Referral 04/18/2023 04/17/2024 1 1 Specialty Diagnoses / Procedures Referred By Contac t Referred To Contact Ophthalmology Diagnoses Multiple sclerosis (HCC) Procedures CONSULT TO OPHTHALMOLOGY OFFICE/OUTPATIENT [facility] MDM 60-74 MINUTES Raymond Kemp, MARINO.COMPENSATION CONSULTING MANAGER [address] [place] [address] Referral ID Status Reason Start Date Expiration Date Visits Requested Visits Authorized [id number] Authorized PCP Requested Referral 3 07/18/2024 1 1 Specialty Diagnoses / Procedures Referred By Contac t Referred To Contact MR IMAGING Diagnoses Multiple sclerosis (HCC) Demyelinating disease of central nervous system (HCC) Procedures MRI THORACIC SPINE WO/W IVCON MRI SPINAL CANAL THORACIC W/O & W/CONTR MATRL Raymond Kemp APRN.COMPENSATION CONSULTING MANAGER [address] [phone] Mr Imaging [place] [address] Referral ID Status Reason Start Date Expiration Date Visits Requested Visits Authorized [id number] Pending Review Auto-Generat ed Referral 3 08/17/2024 1 1 Specialty Diagnoses / Procedures Referred By Contac t Referred To Contact [facility] Diagnoses Multiple sclerosis (HCC) Cognitive communication deficit Procedures CONSULT TO SPEECH THERAPY OFFICE/OUTPATIENT [facility] 60 MINUTES Raymond Kemp, MARINO.COMPENSATION CONSULTING MANAGER [address] [phone] [facility] [place] [phone] Referral ID Status Reason Start Date Expiration Date Visits Requested Visits Authorized [id number] Pending Review Auto-Generat ed Referral 09/06/2023 09/05/2024 1 1 Specialty Diagnoses / Procedures Referred By Contac t Referred To Contact Diagnoses Multiple sclerosis (HCC) Snoring Procedures CONSULT TO SLEEP MEDICINE - ADULT OFFICE/OUTPATIENT [facility] 60 MINUTES Raymond Kemp, CATALYST IMPREGNATOR.COMPENSATION CONSULTING MANAGER [address] [place] [address] Referral ID Status Reason Start Date Expiration Date Visits Requested Visits Authorized [id number] Authorized PCP Requested Referral 01/31/2024 01/30/2025 1 1 Specialty Diagnoses / Procedures Referred By Contac t Referred To Contact MR IMAGING Diagnoses Multiple sclerosis (HCC) Encounter for medication monitoring Procedures MRI BRAIN WO/W IVCON MRI BRAIN BRAIN STEM W/O W/CONTRAST MATERIAL Raymond Kemp, MARINO.COMPENSATION CONSULTING MANAGER [address] [place] [address] Mr [facility] Referral ID Status Reason Start Date Expiration Date Visits Requested Visits Authorized [id number] Authorized Auto-Generat ed Referral 03/01/2025 1 1 Specialty Diagnoses / Procedures Referred By Contac t Referred To Contact Diagnoses PMB (postmenopausal bleeding) Procedures CONSULT TO MINIMALLY INVASIVE GYNECOLOGIC SURGERY OFFICE/OUTPATIENT [facility] [place] [address] [place] [address] Referral ID Status Reason Start Date Expiration Date Visits Requested Visits Authorized [id number] Authorized PCP Requested Referral Auto-Generate d Referral 02/14/2024 02/13/2025 1 1 Specialty Diagnoses / Procedures Referred By Contac t Referred To Contact BR IMAGING Diagnoses Encounter for screening mammogram for malignant neoplasm of breast Procedures ELIZABETH SCREENING SCREENING MAMMOGRAPHY BI 2-[place] [address] [place] [address] [facility] [address] [place] [address] Referral ID Status Reason Start Date Expiration Date Visits Requested Visits Authorized [id number] Authorized Auto-Generat ed Referral 02/14/2024 03/15/2025 1 1 Specialty Diagnoses / Procedures Referred By Contac t Referred To Contact Optometry Diagnoses Multiple sclerosis (HCC) Procedures CONSULT TO OPTOMETRY OFFICE/OUTPATIENT [facility] 60 MINUTES Raymond Kemp, CATALYST IMPREGNATOR.COMPENSATION CONSULTING MANAGER [address] [place] [address] Referral ID Status Reason Start Date Expiration Date Visits Requested Visits Authorized [id number] Authorized PCP Requested Referral 05/08/2024 05/08/2025 1 1 Specialty Diagnoses / Procedures Referred By Contac t Referred To Contact MR IMAGING Diagnoses Multiple sclerosis (HCC) Procedures MRI CERVICAL SPINE WO/W IVCON MRI SPINAL CANAL CERVICAL W/O & W/CONTR MATRL Raymond Kemp, CATALYST IMPREGNATOR.COMPENSATION CONSULTING MANAGER [address] [place] [address] Mr Imaging [place] [address] Referral ID Status Reason Start Date Expiration Date Visits Requested Visits Authorized [id number] Authorized Auto-Generat ed Referral 05/08/2024 06/07/2025 1 1 Specialty Diagnoses / Procedures Referred By Contac t Referred To Contact Orthopedics Diagnoses Pain in joint of right hand Multiple sclerosis (HCC) Procedures CONSULT PANEL TO ORTHOPAEDICS OFFICE/OUTPATIENT NEW [facility] MDM 60 MINUTES Raymond Kemp APRN.COMPENSATION CONSULTING MANAGER [address] [place] [phone] Referral ID Status Reason Start Date Expiration Date Visits Requested Visits Authorized [id number] Authorized PCP Requested Referral 05/08/2024 05/08/2025 1 1 Specialty Diagnoses / Procedures Referred By Jimboac t Referred To Contact XR IMAGING Diagnoses Pain in joint of right hand Multiple sclerosis (HCC) Procedures XR HAND GENERAL 3V PA/LAT/OBL RIGHT RADEX HAND MINIMUM 3 VIEWS Raymond Kemp APRN.COMPENSATION CONSULTING MANAGER [address] [place] [phone] Xr Imaging [place] [address] Referral ID Status Reason Start Date Expiration Date Visits Requested Visits Authorized [id number] Authorized Auto-Generat ed Referral 05/08/2024 06/07/2025 1 1 Referral ID Status Reason Start Date Expiration Date V isits Requested Visits Authorized [id number] Closed Auto-Generate d Referral 05/08/2024 06/07/2025 1 1 Referral ID Status Reason Start Date Expiration Date V isits Requested Visits Authorized [id number] Closed Auto-Generate d Referral 08/01/2024 03/01/2025 1 1 Chief Complaint and Reason for Visit Chief Complaint I10 Leukocytosis Reason for Visit Conjunctivitis Leukocytosis Mass of uterus Multiple sclerosis exacerbation Chief Complaint Bug bite Chief Complaint n64.4 Chief Complaint g35 z51.81 r53.83 e5 5.9 Additional Source Comments INFORMATION SOURCE (unrecogn ized section and content) DATE CREATED AUTHOR 02/28/2020 [facility] DATE CREATED AUTHOR AUTHOR'S ORGANIZ ATION 08/29/2020 [facility] DATE CREATED AUTHOR AUTHOR'S ORGANIZ ATION 08/31/2021 [facility] DATE CREATED AUTHOR AUTHOR'S ORGANIZ ATION 08/16/2023 [facility] DATE CREATED AUTHOR AUTHOR'S ORGANIZ ATION 08/16/2023 [facility] DATE CREATED AUTHOR AUTHOR'S ORGANIZ ATION 09/02/2023 [facility] DATE CREATED AUTHOR AUTHOR'S ORGANIZ ATION 02/21/2024 [facility] DATE CREATED AUTHOR AUTHOR'S ORGANIZ ATION 07/17/2024 [facility] DATE CREATED AUTHOR AUTHOR'S ORGANIZ ATION 09/07/2024 [facility] Source Comments (unrecognize d section and content) In the event this informatio n is protected by the Federal Confidentiality of Alcohol and Drug Abuse Patient Records regulations: The Federal rules restrict any use of the information to criminally investigate or prosecute any alcohol or drug abuse patient.[facility] System[facility] the event this information is protected by the Federal Confidentiality of Alcohol and Drug Abuse Patient Records regulations: The Federal rules restrict any use of the information to criminally investigate or prosecute any alcohol or drug abuse patient.[facility] SystemIn the event this information is protected by the Federal Confidentiality of Alcohol and Drug Abuse Patient Records regulations: The Federal rules restrict any use of the information to criminally investigate or prosecute any alcohol or drug abuse patient.[facility] SystemIn the event this information is protected by the Federal Confidentiality of Alcohol and Drug Abuse Patient Records regulations: The Federal rules restrict any use of the information to criminally investigate or prosecute any alcohol or drug abuse patient.[facility] SystemIn the event this information is protected by the Federal Confidentiality of Alcohol and Drug Abuse Patient Records regulations: The Federal rules restrict any use of the information to criminally investigate or prosecute any alcohol or drug abuse patient.[facility] SystemIn the event this information is protected by the Federal Confidentiality of Alcohol and Drug Abuse Patient Records regulations: The Federal rules restrict any use of the information to criminally investigate or prosecute any alcohol or drug abuse patient.[facility] SystemIn the event this information is protected by the Federal Confidentiality of Alcohol and Drug Abuse Patient Records regulations: The Federal rules restrict any use of the information to criminally investigate or prosecute any alcohol or drug abuse patient.[facility] SystemIn the event this information is protected by the Federal Confidentiality of Alcohol and Drug Abuse Patient Records regulations: The Federal rules restrict any use of the information to criminally investigate or prosecute any alcohol or drug abuse patient.[facility] SystemIn the event this information is protected by the Federal Confidentiality of Alcohol and Drug Abuse Patient Records regulations: The Federal rules restrict any use of the information to criminally investigate or prosecute any alcohol or drug abuse patient.[facility] SystemIn the event this information is protected by the Federal Confidentiality of Alcohol and Drug Abuse Patient Records regulations: The Federal rules restrict any use of the information to criminally investigate or prosecute any alcohol or drug abuse patient.[facility] SystemIn the event this information is protected by the Federal Confidentiality of Alcohol and Drug Abuse Patient Records regulations: The Federal rules restrict any use of the information to criminally investigate or prosecute any alcohol or drug abuse patient.[facility] SystemIn the event this information is protected by the Federal Confidentiality of Alcohol and Drug Abuse Patient Records regulations: The Federal rules restrict any use of the information to criminally investigate or prosecute any alcohol or drug abuse patient.[facility] SystemIn the event this information is protected by the Federal Confidentiality of Alcohol and Drug Abuse Patient Records regulations: The Federal rules restrict any use of the information to criminally investigate or prosecute any alcohol or drug abuse patient.[facility] SystemIn the event this information is protected by the Federal Confidentiality of Alcohol and Drug Abuse Patient Records regulations: The Federal rules restrict any use of the information to criminally investigate or prosecute any alcohol or drug abuse patient.[facility] SystemIn the event this information is protected by the Federal Confidentiality of Alcohol and Drug Abuse Patient Records regulations: The Federal rules restrict any use of the information to criminally investigate or prosecute any alcohol or drug abuse patient.[facility] SystemIn the event this information is protected by the Federal Confidentiality of Alcohol and Drug Abuse Patient Records regulations: The Federal rules restrict any use of the information to criminally investigate or prosecute any alcohol or drug abuse patient.[facility] SystemIn the event this information is protected by the Federal Confidentiality of Alcohol and Drug Abuse Patient Records regulations: The Federal rules restrict any use of the information to criminally investigate or prosecute any alcohol or drug abuse patient.[facility] SystemIn the event this information is protected by the Federal Confidentiality of Alcohol and Drug Abuse Patient Records regulations: The Federal rules restrict any use of the information to criminally investigate or prosecute any alcohol or drug abuse patient.[facility] SystemIn the event this information is protected by the Federal Confidentiality of Alcohol and Drug Abuse Patient Records regulations: The Federal rules restrict any use of the information to criminally investigate or prosecute any alcohol or drug abuse patient.[facility] SystemIn the event this information is protected by the Federal Confidentiality of Alcohol and Drug Abuse Patient Records regulations: The Federal rules restrict any use of the information to criminally investigate or prosecute any alcohol or drug abuse patient.[facility] SystemIn the event this information is protected by the Federal Confidentiality of Alcohol and Drug Abuse Patient Records regulations: The Federal rules restrict any use of the information to criminally investigate or prosecute any alcohol or drug abuse patient.[facility] SystemIn the event this information is protected by the Federal Confidentiality of Alcohol and Drug Abuse Patient Records regulations: The Federal rules restrict any use of the information to criminally investigate or prosecute any alcohol or drug abuse patient.[facility] SystemIn the event this information is protected by the Federal Confidentiality of Alcohol and Drug Abuse Patient Records regulations: The Federal rules restrict any use of the information to criminally investigate or prosecute any alcohol or drug abuse patient.[facility] SystemIn the event this information is protected by the Federal Confidentiality of Alcohol and Drug Abuse Patient Records regulations: The Federal rules restrict any use of the information to criminally investigate or prosecute any alcohol or drug abuse patient.[facility] SystemIn the event this information is protected by the Federal Confidentiality of Alcohol and Drug Abuse Patient Records regulations: The Federal rules restrict any use of the information to criminally investigate or prosecute any alcohol or drug abuse patient.[facility] SystemIn the event this information is protected by the Federal Confidentiality of Alcohol and Drug Abuse Patient Records regulations: The Federal rules restrict any use of the information to criminally investigate or prosecute any alcohol or drug abuse patient.[facility] SystemIn the event this information is protected by the Federal Confidentiality of Alcohol and Drug Abuse Patient Records regulations: The Federal rules restrict any use of the information to criminally investigate or prosecute any alcohol or drug abuse patient.[facility] SystemIn the event this information is protected by the Federal Confidentiality of Alcohol and Drug Abuse Patient Records regulations: The Federal rules restrict any use of the information to criminally investigate or prosecute any alcohol or drug abuse patient.[facility] SystemIn the event this information is protected by the Federal Confidentiality of Alcohol and Drug Abuse Patient Records regulations: The Federal rules restrict any use of the information to criminally investigate or prosecute any alcohol or drug abuse patient.[facility] SystemIn the event this information is protected by the Federal Confidentiality of Alcohol and Drug Abuse Patient Records regulations: The Federal rules restrict any use of the information to criminally investigate or prosecute any alcohol or drug abuse patient.[facility] SystemIn the event this information is protected by the Federal Confidentiality of Alcohol and Drug Abuse Patient Records regulations: The Federal rules restrict any use of the information to criminally investigate or prosecute any alcohol or drug abuse patient.[facility] SystemIn the event this information is protected by the Federal Confidentiality of Alcohol and Drug Abuse Patient Records regulations: The Federal rules restrict any use of the information to criminally investigate or prosecute any alcohol or drug abuse patient.[facility] SystemIn the event this information is protected by the Federal Confidentiality of Alcohol and Drug Abuse Patient Records regulations: The Federal rules restrict any use of the information to criminally investigate or prosecute any alcohol or drug abuse patient.[facility] SystemIn the event this information is protected by the Federal Confidentiality of Alcohol and Drug Abuse Patient Records regulations: The Federal rules restrict any use of the information to criminally investigate or prosecute any alcohol or drug abuse patient.[facility] SystemIn the event this information is protected by the Federal Confidentiality of Alcohol and Drug Abuse Patient Records regulations: The Federal rules restrict any use of the information to criminally investigate or prosecute any alcohol or drug abuse patient.[facility] SystemIn the event this information is protected by the Federal Confidentiality of Alcohol and Drug Abuse Patient Records regulations: The Federal rules restrict any use of the information to criminally investigate or prosecute any alcohol or drug abuse patient.[facility] SystemIn the event this information is protected by the Federal Confidentiality of Alcohol and Drug Abuse Patient Records regulations: The Federal rules restrict any use of the information to criminally investigate or prosecute any alcohol or drug abuse patient.[facility] SystemIn the event this information is protected by the Federal Confidentiality of Alcohol and Drug Abuse Patient Records regulations: The Federal rules restrict any use of the information to criminally investigate or prosecute any alcohol or drug abuse patient.[facility] SystemIn the event this information is protected by the Federal Confidentiality of Alcohol and Drug Abuse Patient Records regulations: The Federal rules restrict any use of the information to criminally investigate or prosecute any alcohol or drug abuse patient.[facility] SystemIn the event this information is protected by the Federal Confidentiality of Alcohol and Drug Abuse Patient Records regulations: The Federal rules restrict any use of the information to criminally investigate or prosecute any alcohol or drug abuse patient.[facility] SystemIn the event this information is protected by the Federal Confidentiality of Alcohol and Drug Abuse Patient Records regulations: The Federal rules restrict any use of the information to criminally investigate or prosecute any alcohol or drug abuse patient.[facility] SystemIn the event this information is protected by the Federal Confidentiality of Alcohol and Drug Abuse Patient Records regulations: The Federal rules restrict any use of the information to criminally investigate or prosecute any alcohol or drug abuse patient.[facility] SystemIn the event this information is protected by the Federal Confidentiality of Alcohol and Drug Abuse Patient Records regulations: The Federal rules restrict any use of the information to criminally investigate or prosecute any alcohol or drug abuse patient.[facility] SystemIn the event this information is protected by the Federal Confidentiality of Alcohol and Drug Abuse Patient Records regulations: The Federal rules restrict any use of the information to criminally investigate or prosecute any alcohol or drug abuse patient.[facility] SystemIn the event this information is protected by the Federal Confidentiality of Alcohol and Drug Abuse Patient Records regulations: The Federal rules restrict any use of the information to criminally investigate or prosecute any alcohol or drug abuse patient.[facility] SystemIn the event this information is protected by the Federal Confidentiality of Alcohol and Drug Abuse Patient Records regulations: The Federal rules restrict any use of the information to criminally investigate or prosecute any alcohol or drug abuse patient.[facility] SystemIn the event this information is protected by the Federal Confidentiality of Alcohol and Drug Abuse Patient Records regulations: The Federal rules restrict any use of the information to criminally investigate or prosecute any alcohol or drug abuse patient.[facility] SystemIn the event this information is protected by the Federal Confidentiality of Alcohol and Drug Abuse Patient Records regulations: The Federal rules restrict any use of the information to criminally investigate or prosecute any alcohol or drug abuse patient.[facility] SystemIn the event this information is protected by the Federal Confidentiality of Alcohol and Drug Abuse Patient Records regulations: The Federal rules restrict any use of the information to criminally investigate or prosecute any alcohol or drug abuse patient.[facility] SystemIn the event this information is protected by the Federal Confidentiality of Alcohol and Drug Abuse Patient Records regulations: The Federal rules restrict any use of the information to criminally investigate or prosecute any alcohol or drug abuse patient.[facility] SystemIn the event this information is protected by the Federal Confidentiality of Alcohol and Drug Abuse Patient Records regulations: The Federal rules restrict any use of the information to criminally investigate or prosecute any alcohol or drug abuse patient.[facility] SystemIn the event this information is protected by the Federal Confidentiality of Alcohol and Drug Abuse Patient Records regulations: The Federal rules restrict any use of the information to criminally investigate or prosecute any alcohol or drug abuse patient.[facility] SystemIn the event this information is protected by the Federal Confidentiality of Alcohol and Drug Abuse Patient Records regulations: The Federal rules restrict any use of the information to criminally investigate or prosecute any alcohol or drug abuse patient.[facility] SystemIn the event this information is protected by the Federal Confidentiality of Alcohol and Drug Abuse Patient Records regulations: The Federal rules restrict any use of the information to criminally investigate or prosecute any alcohol or drug abuse patient.[facility] SystemIn the event this information is protected by the Federal Confidentiality of Alcohol and Drug Abuse Patient Records regulations: The Federal rules restrict any use of the information to criminally investigate or prosecute any alcohol or drug abuse patient.[facility] SystemIn the event this information is protected by the Federal Confidentiality of Alcohol and Drug Abuse Patient Records regulations: The Federal rules restrict any use of the information to criminally investigate or prosecute any alcohol or drug abuse patient.[facility] SystemIn the event this information is protected by the Federal Confidentiality of Alcohol and Drug Abuse Patient Records regulations: The Federal rules restrict any use of the information to criminally investigate or prosecute any alcohol or drug abuse patient.[facility] SystemIn the event this information is protected by the Federal Confidentiality of Alcohol and Drug Abuse Patient Records regulations: The Federal rules restrict any use of the information to criminally investigate or prosecute any alcohol or drug abuse patient.[facility] SystemIn the event this information is protected by the Federal Confidentiality of Alcohol and Drug Abuse Patient Records regulations: The Federal rules restrict any use of the information to criminally investigate or prosecute any alcohol or drug abuse patient.[facility] SystemIn the event this information is protected by the Federal Confidentiality of Alcohol and Drug Abuse Patient Records regulations: The Federal rules restrict any use of the information to criminally investigate or prosecute any alcohol or drug abuse patient.[facility] SystemIn the event this information is protected by the Federal Confidentiality of Alcohol and Drug Abuse Patient Records regulations: The Federal rules restrict any use of the information to criminally investigate or prosecute any alcohol or drug abuse patient.[facility] SystemIn the event this information is protected by the Federal Confidentiality of Alcohol and Drug Abuse Patient Records regulations: The Federal rules restrict any use of the information to criminally investigate or prosecute any alcohol or drug abuse patient.[facility] SystemIn the event this information is protected by the Federal Confidentiality of Alcohol and Drug Abuse Patient Records regulations: The Federal rules restrict any use of the information to criminally investigate or prosecute any alcohol or drug abuse patient.[facility] SystemIn the event this information is protected by the Federal Confidentiality of Alcohol and Drug Abuse Patient Records regulations: The Federal rules restrict any use of the information to criminally investigate or prosecute any alcohol or drug abuse patient.[facility] SystemIn the event this information is protected by the Federal Confidentiality of Alcohol and Drug Abuse Patient Records regulations: The Federal rules restrict any use of the information to criminally investigate or prosecute any alcohol or drug abuse patient.[facility] SystemIn the event this information is protected by the Federal Confidentiality of Alcohol and Drug Abuse Patient Records regulations: The Federal rules restrict any use of the information to criminally investigate or prosecute any alcohol or drug abuse patient.[facility] SystemIn the event this information is protected by the Federal Confidentiality of Alcohol and Drug Abuse Patient Records regulations: The Federal rules restrict any use of the information to criminally investigate or prosecute any alcohol or drug abuse patient.[facility] SystemIn the event this information is protected by the Federal Confidentiality of Alcohol and Drug Abuse Patient Records regulations: The Federal rules restrict any use of the information to criminally investigate or prosecute any alcohol or drug abuse patient.[facility] SystemIn the event this information is protected by the Federal Confidentiality of Alcohol and Drug Abuse Patient Records regulations: The Federal rules restrict any use of the information to criminally investigate or prosecute any alcohol or drug abuse patient.[facility] SystemIn the event this information is protected by the Federal Confidentiality of Alcohol and Drug Abuse Patient Records regulations: The Federal rules restrict any use of the information to criminally investigate or prosecute any alcohol or drug abuse patient.[facility] SystemIn the event this information is protected by the Federal Confidentiality of Alcohol and Drug Abuse Patient Records regulations: The Federal rules restrict any use of the information to criminally investigate or prosecute any alcohol or drug abuse patient.[facility] SystemIn the event this information is protected by the Federal Confidentiality of Alcohol and Drug Abuse Patient Records regulations: The Federal rules restrict any use of the information to criminally investigate or prosecute any alcohol or drug abuse patient.[facility] SystemIn the event this information is protected by the Federal Confidentiality of Alcohol and Drug Abuse Patient Records regulations: The Federal rules restrict any use of the information to criminally investigate or prosecute any alcohol or drug abuse patient.[facility] SystemIn the event this information is protected by the Federal Confidentiality of Alcohol and Drug Abuse Patient Records regulations: The Federal rules restrict any use of the information to criminally investigate or prosecute any alcohol or drug abuse patient.[facility] SystemIn the event this information is protected by the Federal Confidentiality of Alcohol and Drug Abuse Patient Records regulations: The Federal rules restrict any use of the information to criminally investigate or prosecute any alcohol or drug abuse patient.[facility] SystemIn the event this information is protected by the Federal Confidentiality of Alcohol and Drug Abuse Patient Records regulations: The Federal rules restrict any use of the information to criminally investigate or prosecute any alcohol or drug abuse patient.[facility] SystemIn the event this information is protected by the Federal Confidentiality of Alcohol and Drug Abuse Patient Records regulations: The Federal rules restrict any use of the information to criminally investigate or prosecute any alcohol or drug abuse patient.[facility] SystemIn the event this information is protected by the Federal Confidentiality of Alcohol and Drug Abuse Patient Records regulations: The Federal rules restrict any use of the information to criminally investigate or prosecute any alcohol or drug abuse patient.[facility] SystemIn the event this information is protected by the Federal Confidentiality of Alcohol and Drug Abuse Patient Records regulations: The Federal rules restrict any use of the information to criminally investigate or prosecute any alcohol or drug abuse patient.[facility] SystemIn the event this information is protected by the Federal Confidentiality of Alcohol and Drug Abuse Patient Records regulations: The Federal rules restrict any use of the information to criminally investigate or prosecute any alcohol or drug abuse patient.[facility] SystemIn the event this information is protected by the Federal Confidentiality of Alcohol and Drug Abuse Patient Records regulations: The Federal rules restrict any use of the information to criminally investigate or prosecute any alcohol or drug abuse patient.[facility] SystemIn the event this information is protected by the Federal Confidentiality of Alcohol and Drug Abuse Patient Records regulations: The Federal rules restrict any use of the information to criminally investigate or prosecute any alcohol or drug abuse patient.[facility] Reason for Visit (unrecogniz ed section and content) Reason Comments Established Patient Follow-Up Reason Onset Date Comments [facility] - Medication Refill 11/23/2021 Zeposia Reason Comments Established Patient Follow-Up Reason Comments Refill Request Reason Onset Date Comments [facility] - Medication Refill 01/17/2022 Zeposia Reason Onset Date Comments Refill Request 01/23/2022 Reason Comments Appointment lvm for patient to c all so we can get them scheduled for a social work consult Reason Comments Patient Question Results Reason Onset Date Comments [facility] Neu[facility] - Medication Refill 02/20/2022 Zeposia Reason Onset Date Comments No Show 03/14/2022 No show Reason Onset Date Comments [facility] Neu[facility] - Medication Refill 03/23/2022 Zeposia Reason Comments Appointment Reason Onset Date Comments [facility] Neu[facility] - Medication Refill 04/26/2022 Zeposia Reason Onset Date Comments Refill Request 05/15/2022 Reason Onset Date Comments [facility] Neu[facility] - Medication Refill 05/31/2022 Zeposia Reason Onset Date Comments [facility] Neu[facility] - Medication Refill 06/27/2022 Zeposia Reason Onset Date Comments [facility] Neurology - Medication Refill 07/27/2022 Zeposia Reason Onset Date Comments No Show 08/04/2022 No show Reason Onset Date Comments Pre-Op Teaching 08/14/2022 Reason Comments Anesthesia Consult Reason Onset Date Comments [facility] Neu[facility] - Medication Refill 09/04/2022 Zeposia Reason Onset Date Comments [facility] Neu[facility] - Medication Refill 10/24/2022 Zeposia Reason Comments Orders Reason Onset Date Comments [employer] Supervisor - Other 10/27/2022 P2P w/L H 11/01/ @10am Reason Comments Future Appointment Reason Onset Date Comments Refill Request 11/16/2022 Reason Comments Missed Appointment Reason Comments No Show Reason Comments Schedule Surgery Reason Comments [facility] Neu[facility] - Medication Refill Zeposi a Reason Onset Date Comments [facility] Neu[facility] - Medication Refill 03/12/2023 Zeposia Reason Comments lab orders to [facility] CALL PATIENT WHE N SENT Reason Onset Date Comments [facility] Neurology - Medication Refill 04/10/2023 Zeposia Reason Comments Established Patient Follow-Up MS Follow UP Reason Onset Date Comments [facility] Neurology - Medication Refill 05/16/2023 Zeposia Reason Comments Orders MRI Brain/C-Spine Reason Onset Date Comments [facility] Neu[facility] - Medication Refill 06/12/2023 Zeposia Reason Comments Patient Question Reason Onset Date Comments [facility] Neu[facility] - Medication Refill 07/05/2023 Zeposia Reason Comments Follow Up Pain Ongoing left arm abdullahi n. Reason Comments Establish Care Mammogram order Reason Comments Extremity Weakness Noted a few hours ag o in the left arm. 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 Reason Comments Med Change Request Reason Onset Date Comments [facility] Neurology - Medication Refill 10/02/2023 Zeposia Reason Onset Date Comments [facility] Neurology - Medication Refill 11/08/2023 Zeposia Reason Onset Date Comments Refill Request 11/30/2023 Reason Onset Date Comments [facility] Neu[facility] - Medication Refill 01/10/2024 Zeposia Reason Comments Established Patient Follow-Up MS Follow Up Reason Onset Date Comments [facility] Neurology - Medication Refill 02/05/2024 Zeposia Reason Comments Uterine Fibroids Vaginal Bleeding Reason Onset Date Comments [facility] Neu[facility] - Medication Refill 03/13/2024 Zeposia Reason Onset Date Comments [facility] Neurology - Medication Refill 04/09/2024 Zeposia Reason Comments Established Patient Follow-Up MS follow up Reason Onset Date Comments [facility] Neurology - Medication Refill 05/26/2024 Zeposia Reason Onset Date Comments Refill Request 06/02/2024 Reason Comments Radiology MRI Specialty Diagnoses / Procedures Referred By Adam garvey Referred To Contact MR IMAGING Diagnoses Multiple sclerosis (HCC) Procedures MRI CERVICAL SPINE WO/W IVCON MRI SPINAL CANAL CERVICAL W/O & W/CONTR LCL Raymond Kemp, CATALYST IMPREGNATOR.COMPENSATION CONSULTING MANAGER [address] [place] [address] Mr [facility] [place] [address] Referral ID Status Reason Start Date Expiration Date V isits Requested Visits Authorized [id number] Closed Auto-Generate d Referral 05/08/2024 06/07/2025 1 1 Reason Comments Uterine Fibroids Specialty Diagnoses / Procedures Referred By Adam garvey Referred To Contact Diagnoses PMB (postmenopausal bleeding) Procedures CONSULT TO MINIMALLY INVASIVE GYNECOLOGIC SURGERY OFFICE/OUTPATIENT [facility] 60 MINUTES Sal Malloy MD [address] [id number] [place] [address] Referral ID Status Reason Start Date Expiration Date V isits Requested Visits Authorized [id number] Closed PCP Requested Referral Auto-Generated Referral 02/14/2024 02/13/2025 1 1 Reason Comments Follow Up EMB results Reason Comments Refill Request Appointment Request Reason Onset Date Comments [facility] Neurology - Medication Refill 07/04/2024 Zeposia Reason Comments Shortness of breath Patient states that she began to notice her MS flaring up for the past week, since then has been having worsening body wide pain especially in diaphragm that is causing shortness of breath. Also admits to multiple falls this week Specialty Diagnoses / Procedures Referred By Adam garvey Referred To Contact Emergency Medicine Diagnoses Multiple sclerosis Heart failure, unspecified (HCC) Dyspnea, unspecified Procedures NA [facility] [place] [address] Phone: tel: [facility] [place] [address] Phone: tel: Referral ID Status Reason Start Date Expiration Date Visits Re quested Visits Authorized [id number] 3 3 Specialty Diagnoses / Procedures Referred By Adam garvey Referred To Contact MR IMAGING Diagnoses Multiple sclerosis (HCC) Encounter for medication monitoring Procedures MRI BRAIN WO/W IVCON MRI BRAIN BRAIN STEM W/O W/CONTRAST MATERIAL Raymond Kemp APRN.COMPENSATION CONSULTING MANAGER [address] [place] [id number] [place] [address] Referral ID Status Reason Start Date Expiration Date V isits Requested Visits Authorized [id number] Closed Auto-Generate d Referral 08/01/2024 03/01/2025 1 1 Reason Onset Date Comments [facility] Neurology - Medication Refill 08/04/2024 Zeposia Reason Onset Date Comments [facility] Neurology - Medication Refill 08/28/2024 Zeposia Reason Comments Letter Care Teams (unrecognized sec tion and content) Team Status: Active Member Role Status Dates Rina Reardon DO Primary Care Provider Active Team Status: Inactive Member Role Status Dates Rina Reardon DO Primary Care Provider Active Jaswant Freitas DO Emergency Provider Active Director [employer] Relationship Specialty Start Date End Date Rina Reardon DO PCP - General Family Practice 02/28/21 [address] [address] Referring Family Practice 10/23/19 Rina Reardon DO [address] [facility] [place] [address] Referring Family Practice 07/13/21 Director [employer] Relationship Specialty Start Date End Date Rina Reardon DO PCP - General [facility] Practice 02/28/21 Robe [place] [address] Referring Family Practice 10/23/19 Rina Reardon DO [address] [place] [address] Referring Family Practice 07/13/21 Director [employer] Relationship Specialty Start Date End Date Rina Reardon, DO PCP - General Family Practice 02/28/21 Robe Mckeon [address] [place] [address] Referring Family Practice 10/23/19 Rina Reardon, DO [address] [place] [address] Referring Family Practice 07/13/21 Director [employer] Relationship Specialty Start Date End Date Rina Reardon, DO PCP - General Family Practice 02/28/21 Robe Mckeon [address] [place] [address] Referring Family Practice 10/23/19 Rina Reardon, DO [address] [place] [address] Referring Family Practice 07/13/21 Director [employer] Relationship Specialty Start Date End Date Rina Reardon, DO PCP - General Family Practice 02/28/21 Robe Mckeon [address] [place] [address] Referring Family Practice 10/23/19 Rina Reardon, DO [address] [place] [address] Referring Family Practice 07/13/21 Director [employer] Relationship Specialty Start Date End Date Rina Reardon, DO PCP - General Family Practice 02/28/21 Robe Mckeon [address] [place] [address] Referring Family Practice 10/23/19 Rina Reardon, DO [address] [place] [address] Referring Family Practice 07/13/21 Director [employer] Relationship Specialty Start Date End Date Rina Reardon, DO PCP - General Family Practice 02/28/21 Robe Mckeon [address] [place] [address] Referring Family Practice 10/23/19 Rina Reardon, DO [address] [place] [address] Referring Family Practice 07/13/21 Director [employer] Relationship Specialty Start Date End Date Rina Reardon, DO PCP - General Family Practice 02/28/21 Robe [address]keon [address] [place] [address] Referring Family Practice 10/23/19 Rina Reardon, DO [address] [place] [address] Referring Family Practice 07/13/21 Director [employer] Relationship Specialty Start Date End Date Rina Reardon, DO PCP - General Family Medicine 02/28/21 Robe Mckeon [address] [place] [address] Referring Family Medicine 10/23/19 Rina Reardon, DO [address] [place] [address] Referring Family Medicine 07/13/21 Director [employer] Relationship Specialty Start Date End Date Rina Reardon, DO PCP - General Family Medicine 02/28/21 Robe Mckeon [address] [place] [address] Referring Family Medicine 10/23/19 Rina Reardon, DO [address] [facility] [place] [address] Referring Family Medicine 07/13/21 Director [employer] Relationship Specialty Start Date End Date Rina Reardon DO PCP - General Family Medicine 02/28/21 Robe Mckeon [address] [place] [address] Referring Family Medicine 10/23/19 Rina Reardon, DO [address] [facility] [place] [address] Referring Family Medicine 07/13/21 Director [employer] Relationship Specialty Start Date End Date Rina Reardon, DO [address] [place] [address] PCP - General Family Medicine 02/28/21 Robe Mckeon [address] [place] [address] Referring Family Medicine 10/23/19 Rina Reardon, DO [address] [place] [address] Referring Family Medicine 07/13/21 Director [employer] Agency Relationship Specialty Start Date End Date Rina Reardon, DO [address] [place] [address] PCP - General Family Medicine 02/28/21 Robe Mckeon [address] [place] [address] Referring Family Medicine 10/23/19 Rina Reardon, DO [address] [facility] [place] [address] Referring Family Medicine 07/13/21 Director Private [employer] Therapy Agency Relationship Specialty Start Date End Date Rina Reardon, DO [address] [place] [address] PCP - General Family Medicine 02/28/21 Robe Mckeon [address] [place] [address] Referring Family Medicine 10/23/19 Rina Reardon, DO [address] [place] [address] Referring Family Medicine 07/13/21 Director Private [employer] Agency Relationship Specialty Start Date End Date Rina Reardon, DO [address] [place] [address] PCP - General Family Medicine 02/28/21 Robe Mckeon [address] [place] [address] Referring Family Medicine 10/23/19 Rina Reardon, DO [address] [place] [address] Referring Family Medicine 07/13/21 Director [employer] Relationship Specialty Start Date End Date Rina Reardon, DO [address] [place] [address] PCP - General Family Medicine 02/28/21 Robe Mckeon [address] [place] [address] Referring Family Medicine 10/23/19 Rina Reardon, DO [address] [place] [address] Referring Family Medicine 07/13/21 Team Status: Inactive Member Role Status Dates Rina Reardon , Primary Care Provider, Attendi ng Provider Active Team Status: Active Member Role Status Dates [facility] Primary Care Provider Active Collins Adams MD Active Robe Mckeon SPEECH LANGUAGE THERAPIST-C Referring Provider Active Ellen Gonzáles APRN Attending Provider Active Director [employer] Relationship Specialty Start Date End Date Rina Reardon, DO [address] [place] [address] PCP - General Family Medicine 02/28/21 Robe Mckeon [address] [place] [address] Referring Family Medicine 10/23/19 Rina Reardon, DO [address] [place] [address] Referring Family Medicine 07/13/21 Director [employer] Relationship Specialty Start Date End Date Rina Reardon, DO [address] [place] [address] PCP - General Family Medicine 02/28/21 Robe Mckeon [address] [place] [address] Referring Family Medicine 10/23/19 Rina Reardon, DO [address] [place] [address] Referring Family Medicine 07/13/21 Director [employer] Relationship Specialty Start Date End Date Rina Reardon DO [address] [place] [address] PCP - General Family Medicine 02/28/21 Robe Mckeon [address] [place] [address] Referring Family Medicine 10/23/19 Rina Reardon, DO [address] [place] [address] Referring Family Medicine 07/13/21 Director [employer] Relationship Specialty Start Date End Date Rina Reardon DO [address] [place] [address] PCP - General Family Medicine 02/28/21 Robe Mckeon [address] [place] [address] Referring Family Medicine 10/23/19 Rina Reardon, DO [address] [place] [address] Referring Family Medicine 07/13/21 Director [employer] Relationship Specialty Start Date End Date Rina Reardon DO [address] [place] [address] PCP - General Family Medicine 02/28/21 Robe Mckeon [address] [place] [address] Referring Family Medicine 10/23/19 Rina Reardon, DO [address] [place] [address] Referring Family Medicine 07/13/21 Director [employer] Relationship Specialty Start Date End Date Rina Reardon DO [address] [place] [address] PCP - General Family Medicine 02/28/21 Robe Mckeon [address] [place] [address] Referring Family Medicine 10/23/19 Rina Reardon, DO [address] [place] [address] Referring Family Medicine 07/13/21 Director [employer] Relationship Specialty Start Date End Date Rina Reardon DO [address] [place] [address] PCP - General Family Medicine 02/28/21 Robe Mckeon [address] [place] [address] Referring Family Medicine 10/23/19 Rina Reardon DO [address] [place] [address] Referring Family Medicine 07/13/21 Director [employer] Relationship Specialty Start Date End Date Rina Reardon DO [address] [place] [address] PCP - General Family Medicine 02/28/21 Robe Mckeon [address] [place] [address] Referring Family Medicine 10/23/19 Rina Reardon DO [address] [place] [address] Referring Family Medicine 07/13/21 Director [employer] Relationship Specialty Start Date End Date Sandro Burgos MD [address] [place] [address] PCP - General Internal Medicine 04/18/23 Robe Mckeon [address] [place] [address] Referring Family Medicine 10/23/19 Rina Reardon DO [address] [place] [address] Referring Family Medicine 07/13/21 Director [employer] Relationship Specialty Start Date End Date Sandro Burgos MD [address] [place] [address] PCP - General Internal Medicine 04/18/23 Robe Mckeon [address] [place] [address] Referring Family Medicine 10/23/19 Rina Reardon DO [address] [place] [address] Referring Family Medicine 07/13/21 Director [employer] Relationship Specialty Start Date End Date Sandro Burgos MD [address] [place] [address] PCP - General Internal Medicine 04/18/23 Robe Mckeon [address] [place] [address] Referring Family Medicine 10/23/19 Rina Reardon DO [address] [facility] [place] [address] Referring Family Medicine 07/13/21 Director [employer] Relationship Specialty Start Date End Date Sandro Burgos MD [address] [place] [address] PCP - General Internal Medicine 04/18/23 Robe Mckeon [address] [place] [address] Referring Family Medicine 10/23/19 Rina Reardon DO [address] [facility] [place] [address] Referring Family Medicine 07/13/21 Director [employer] Relationship Specialty Start Date End Date Sandro Burgos MD [address] [place] [address] PCP - General Internal Medicine 04/18/23 Robe Mckeon SPEECH LANGUAGE THERAPIST [address] [place] [address] Referring Family Medicine 10/23/19 Rina Reardon DO [address] [place] [address] Referring Family Medicine 07/13/21 Director [employer] Relationship Specialty Start Date End Date Sandro Burgos MD [address] [place] [address] PCP - General Internal Medicine 04/18/23 Robe Mckeon NP [address] [place] [address] Referring Family Medicine 10/23/19 Rina Reardon DO [address] [place] [address] Referring Family Medicine 07/13/21 Director [employer] Relationship Specialty Start Date End Date Sandro Burgos MD [facility] [place] [address] PCP - General Internal Medicine 04/18/23 Robe Mckeon NP [address] [place] [address] Referring Family Medicine 10/23/19 Rina Reardon DO [address] [place] [address] Referring Family Medicine 07/13/21 Director [employer] Relationship Specialty Start Date End Date Sandro Burgos MD [address] [place] [address] PCP - General Internal Medicine 04/18/23 Robe Mckeon NP [address] [place] [address] Referring Family Medicine 10/23/19 Rina Reardon DO [address] [facility] [address] Referring Family Medicine 07/13/21 Team Status: Inactive Member Role Status Dates Rina Reardon DO Primary Care Provider Active Sandro Hinojosa MD Attending Provider Act dakota Director [employer] Relationship Specialty Start Date End Date Sandro Burgos MD [address] [place] [address] PCP - General Internal Medicine 04/18/23 Robe Mckeon NP [address] [place] [address] Referring Family Medicine 10/23/19 Rina Reardon DO [address] [facility] [address] Referring Family Medicine 07/13/21 Director [employer] Relationship Specialty Start Date End Date Sandro Burgos MD [address] [place] [address] PCP - General Internal Medicine 04/18/23 Robe Mckeon NP [address] [place] [address] Referring Family Medicine 10/23/19 Rina Reardon DO [address] [place] [address] Referring Family Medicine 07/13/21 Director [employer] Relationship Specialty Start Date End Date Sandro Burgos MD [address] [place] [address] PCP - General Internal Medicine 04/18/23 Robe Mckeon NP [address] [place] [address] Referring Family Medicine 10/23/19 Rina Reardon DO [address] [place] [address] Referring Family Medicine 07/13/21 Director [employer] Relationship Specialty Start Date End Date Sandro Burgos MD [address] [place] [address] PCP - General Internal Medicine 04/18/23 Robe Mckeon NP [address] [place] [address] Referring Family Medicine 10/23/19 Rina Reardon DO [address] [place] [address] Referring Family Medicine 07/13/21 Director [employer] Relationship Specialty Start Date End Date Sandro Burgos MD [address] [place] [address] PCP - General Internal Medicine 04/18/23 Robe Mckeon NP [address] [place] [address] Referring Family Medicine 10/23/19 Rina Reardon DO [address] [place] [address] Referring Family Medicine 07/13/21 Director [employer] Relationship Specialty Start Date End Date Sandro Burgos MD [address] [place] [address] PCP - General Internal Medicine 04/18/23 Robe Mckeon NP [address] [place] [address] Referring Family Medicine 10/23/19 Rina Reardon DO [address] [place] [address] Referring Family Medicine 07/13/21 Director [employer] Relationship Specialty Start Date End Date Sandro Burgos MD [address] [place] [address] PCP - General Internal Medicine 04/18/23 Robe Mckeon NP [address] [place] [address] Referring Family Medicine 10/23/19 Rina Reardon DO [address] [place] [address] Referring Family Medicine 07/13/21 Director [employer] Relationship Specialty Start Date End Date Sandro Burgos MD [address] [place] [address] PCP - General Internal Medicine 04/18/23 Robe Mckeon NP [address] [place] [address] Referring Family Medicine 10/23/19 Rina Reardon DO [address] [place] [address] Referring Family Medicine 07/13/21 Director [employer] Relationship Specialty Start Date End Date Sandro Burgos MD [address] [place] [address] PCP - General Internal Medicine 04/18/23 Robe Mckeon NP [address] [place] [address] Referring Family Medicine 10/23/19 Rina Reardon DO [address] [place] [address] Referring Family Medicine 07/13/21 Director [employer] Relationship Specialty [place] [address] [place] [address] PCP - General Internal Medicine 04/18/23 Robe Mckeon NP [address] [place] [address] Referring Family Medicine 10/23/19 Rina Reardon DO [address] [place] [address] Referring Family Medicine 07/13/21 Director [employer] Relationship Specialty Start Date End Date Sandro Burgos MD [address] [place] [address] PCP - General Internal Medicine 04/18/23 Robe Mckeon NP [address] [place] [address] Referring Family Medicine 10/23/19 Rina Reardon DO [address] [place] [address] Referring Family Medicine 07/13/21 Director [employer] Relationship Specialty Start Date End Date Sandro Burgos MD [address] [place] [address] PCP - General Internal Medicine 04/18/23 Robe Mckeon NP [address] [place] [address] Referring Family Medicine 10/23/19 Rina Reardon DO [address] [place] [address] Referring Family Medicine 07/13/21 Director [employer] Relationship Specialty Start Date End Date Sandro Burgos MD [address] [place] [address] PCP - General Internal Medicine 04/18/23 Robe Mckeon NP [address] [place] [address] Referring Family Medicine 10/23/19 Rina Reardon DO [address] [facility] [place] [address] Referring Family Medicine 07/13/21 Team Status: Active Member Role Status Dates PHYSICIAN NO FAMILY Primary Care Provider Active Team Status: Inactive Member Role Status Dates PHYSICIAN NO FAMILY Primary Care Provider Active Start: February 15, 2024 End: February 15, 2024 Raymond Kemp NP-C Attending Provider Active Start: February 15, 2024 End: February 15, 2024 Director [employer] Relationship Specialty Start Date End Date Sandro Burgos MD [address] [place] [address] PCP - General Internal Medicine 04/18/23 Robe Mckeon NP [address] [place] [address] Referring Family Medicine 10/23/19 Rina Reardon DO [address] [facility] [address] Referring Family Medicine 07/13/21 Director [employer] Relationship Specialty Start Date End Date Sandro Burgos MD [address] [place] [address] PCP - General Internal Medicine 04/18/23 Robe Mckeon NP [address] [place] [address] Referring Family Medicine 10/23/19 Rina Reardon DO [address] [place] [address] Referring Family Medicine 07/13/21 Paulo Corey, [facility] 03/17/24 Director [employer] Relationship Specialty Start Date End Date Sandro Burgos MD [address] [place] [address] PCP - General Internal Medicine 04/18/23 Robe Mckeon NP [address] [place] [address] Referring Family Medicine 10/23/19 Rina Reardon DO [address] [place] [address] Referring Family Medicine 07/13/21 Paulo Corey [facility] 03/17/24 Director [employer] Relationship Specialty [place] [address] [place] [address] PCP - General Internal Medicine 04/18/23 Robe Mckeon NP [address] [place] [address] Referring Family Medicine 10/23/19 Rina Reardon DO [address] [place] [address] Referring Family Medicine 07/13/21 Paulo Corey, [facility] 03/17/24 Director [employer] Relationship Specialty Start Date End Date Sandro Burgos MD [address] [place] [address] PCP - General Internal Medicine 04/18/23 Robe Mckeon NP [address] [place] [address] Referring Family Medicine 10/23/19 Rina Reardon DO [address] [place] [address] Referring Family Medicine 07/13/21 Paulo Corey, [facility] 03/17/24 Director [employer] Relationship Specialty Start Date End Date Sandro Burgos MD [address] [place] [address] PCP - General Internal Medicine 04/18/23 Robe Mckeon NP [address] [place] [address] Referring Family Medicine 10/23/19 Rina Reardon DO [address] [place] [address] Referring Family Medicine 07/13/21 Paulo Corey, [facility] 03/17/24 Director [employer] Relationship Specialty Start Date End Date Sandro Burgos MD [address] [place] [address] PCP - General Internal Medicine 04/18/23 Robe Mckeon NP [address] [place] [address] Referring Family Medicine 10/23/19 Rina Reardon DO [address] [facility] [place] [address] Referring Family Medicine 07/13/21 Paulo Corey [facility] 03/17/24 Director [employer] Relationship Specialty Start Date End Date Sandro Burgos MD [address] [place] [address] PCP - General Internal Medicine 04/18/23 Robe Mckeon NP [address] [place] [address] Referring Family Medicine 10/23/19 Rina Rearodn DO [address] [place] [address] Referring Family Medicine 07/13/21 Paulo Corey [facility] 03/17/24 Director [employer] Relationship Specialty Start Date End Date Sandro Burgos MD [address] [place] [address] PCP - General Internal Medicine 04/18/23 Robe Mckeon NP [address] [place] [address] Referring Family Medicine 10/23/19 Rina Reardon DO [address] [place] [address] Referring Family Medicine 07/13/21 Paulo Corey [facility] 03/17/24 Director [employer] Relationship Specialty Start Date End Date Sandro Burgos MD [address] [place] [address] PCP - General Internal Medicine 04/18/23 Robe Mckeon NP [address] [place] [address] Referring Family Medicine 10/23/19 Rina Reardon DO [address] [place] [address] Referring Family Medicine 07/13/21 [facility] Director [employer] Relationship Specialty [place] [address] [place] [address] PCP - General Internal Medicine 04/18/23 Robe Mckeon NP [address] [place] [address] Referring Family Medicine 10/23/19 Rina Reardon DO [address] [place] [address] Referring Family Medicine 07/13/21 [facility] Director [employer] Relationship Specialty Start Date End Date Sandro Burgos MD [address] [place] [address] PCP - General Internal Medicine 04/18/23 Robe Mckeon NP [address] [place] [address] Referring Family Medicine 10/23/19 Rina Reardon DO [address] [place] [address] Referring Family Medicine 07/13/21 Paulo Corey [facility] 03/17/24 Director [employer] Relationship Specialty Start Date End Date Sandro Burgos MD [address] [place] [address] PCP - General Internal Medicine 04/18/23 Robe Mckeon NP [address] [place] [address] Referring Family Medicine 10/23/19 Rina Reardon DO [address] [place] [address] Referring Family Medicine 07/13/21 Paulo Corey [facility] 03/17/24 Director [employer] Relationship Specialty Start Date End Date Sandro Burgos MD [address] [place] [address] PCP - General Internal Medicine 04/18/23 Robe Mckeon NP [address] [place] [address] Referring Family Medicine 10/23/19 Rina Reardon DO [address] [place] [address] Referring Family Medicine 07/13/21 Paulo Corey [facility] 03/17/24 Director [employer] Relationship Specialty Start Date End Date Sandro Burgos MD [address] [place] [address] PCP - General Internal Medicine 04/18/23 Robe Mckeon NP [address] [place] [address] Referring Family Medicine 10/23/19 Rina Reardon DO [address] [place] [address] Referring Family Medicine 07/13/21 Paulo Corey, [facility] 03/17/24 Alpa Kelly APRN.COMPENSATION CONSULTING MANAGER [address] [place] [address] Geriatric Assistant Internal Medicine 07/13/24 Ciera Juarez APRN.COMPENSATION CONSULTING MANAGER [address] [place] [address] Geriatric Assistant Internal Medicine 07/15/24 Director [employer] Relationship Specialty Start Date End Date Sandro Burgos MD [address] [place] [address] PCP - General Internal Medicine 04/18/23 Robe Mckeon, SPEECH LANGUAGE THERAPIST [address] [place] [address] Referring Family Medicine 10/23/19 Rina Reardon DO [address] [place] [address] Referring Family Medicine 07/13/21 Paulo Corey [facility] 03/17/24 Alpa Kelly APRN.COMPENSATION CONSULTING MANAGER [address] [facility] [address] Geriatric Assistant Internal Medicine 07/13/24 Ciera Juarez CATALYST IMPREGNATOR.COMPENSATION CONSULTING MANAGER [address] [facility] [address] Geriatric Assistant Internal Medicine 07/15/24 Director [employer] Relationship Specialty Start Date End Date Sandro Burgos MD [address] [place], [place] [address] PCP - General Internal Medicine 04/18/23 Robe Mckeon NP [facility] [place] [address] Referring Family Medicine 10/23/19 Rina Reardon DO [address] [place] [address] Referring Family Medicine 07/13/21 Paulo Corey [facility] 03/17/24 Alpa Kelly APRN.COMPENSATION CONSULTING MANAGER [address] [facility] [place] [address] Geriatric Assistant Internal Medicine 07/13/24 Ciera Juarez CATALYST IMPREGNATOR.COMPENSATION CONSULTING MANAGER [address] [facility] [address] Geriatric Assistant Internal Medicine 07/15/24 Director [employer] Relationship Specialty Start Date End Date Sandro Burgos MD [address] [place] [address] PCP - General Internal Medicine 04/18/23 Robe Mckeon NP [address] [place] [address] Referring Family Medicine 10/23/19 Rina Reardon DO [address] [facility] [place] [address] Referring Family Medicine 07/13/21 [facility] Alpa Kelly APRN.COMPENSATION CONSULTING MANAGER [address] [place] [address] Geriatric Assistant Internal Medicine 07/13/24 Ciera Juarez APRN.COMPENSATION CONSULTING MANAGER [address] [place] [address] Geriatric Assistant Internal Medicine 07/15/24 Director [employer] Relationship Specialty Start Date End Date Sandro Burgos MD [address] [place] [address] PCP - General Internal Medicine 04/18/23 Robe Mckeon NP [address] [place] [address] Referring Family Medicine 10/23/19 Rina Reardon DO [address] [place] [address] Referring Family Medicine 07/13/21 [facility] 03/[facility]/24 Alpa Kelly APRN.COMPENSATION CONSULTING MANAGER [address] [place] [address] Geriatric Assistant Internal Medicine 07/13/24 Ciera Juarez APRN.COMPENSATION CONSULTING MANAGER [address] [facility] [place] [address] [facility] Internal Medicine 07/15/24 Director [employer] Relationship Specialty Start Date End Date Sandro Burgos MD [address] [place] [address] PCP - General Internal Medicine 04/18/23 Robe Mckeon NP [address] [place] [address] Referring Family Medicine 10/23/19 Rina Reardon DO [address] [facility] [place] [address] Referring Family Medicine 07/13/21 Paulo Corey [facility] 03/17/24 Alpa Kelly APRN.COMPENSATION CONSULTING MANAGER [address] [facility] [address] Geriatric Assistant Internal Medicine 07/13/24 Ciera Juarez APRN.COMPENSATION CONSULTING MANAGER [address] [place] [address] Geriatric Assistant Internal Medicine 07/15/24 Goals (unrecognized section and content) Goals may be documented in a n alternate section Ordered Prescriptions (unrec ognized section and content) Prescription Sig Dispensed Refills Start Date End Da te famotidine (PEPCID) 20 MG tablet Take 1 tablet by mouth 2 times daily for 14 days 28 tablet 0 08/13/2023 08/27/2023 predniSONE (DELTASONE) 50 MG tablet Take 25 tablets by mouth daily for 2 days 50 tablet 0 08/13/2023 08/13/2023 Scheduled Active and Recently Administ ered Medications (unrecognized section and content) Medication Order 08/11/2023 08/12/2023 08/13/2023 famotidine (PEPCID) tablet 20 mg (COMPLETED) 20 mg, Oral, ONCE, 1 dose, On Sun08/13/23 at 1645 1703 (Given - Provid er: Lacey Mas RN) ketorolac (TORADOL) injection 30 mg (COMPLETED) 30 mg, IntraVENous, ONCE, 1 dose, On Sun08/13/23 at 1645, Do not administer for more than 5 days. 1703 (Given - Provid er: Lacey Mas RN) methylPREDNISolone sodium (SOLU-MEDROL) 1,000 mg in sodium chloride 0.9 % 250 mL IVPB (COMPLETED) 1,000 mg, IntraVENous, at 500 mL/hr, Administer over 30 Minutes, ONCE, On Sun08/13/23 at 1800, For 1 dose 1753 (New Bag - Prov ider: Lacey Mas RN)1838 (Stopped - Provider: Alesha Gates RN) morphine (PF) injection 2 mg 2 mg, IntraVENous, ONCE, 1 dose, On Sun08/13/23 at 1415, If oral and IV narcotics ordered, use oral first and only use IV if oral is ineffective or cannot take oral. Do Not give oral and IV within 1 hour of each other unless specifically ordered. 1449 (Not Given - Pr ovider: Lacey Mas RN - Reason: Patient/family refused - Comment: returned to bin patient refusted) ondansetron (ZOFRAN) injection 4 mg (COMPLETED) 4 mg, IntraVENous, ONCE, 1 dose, On Sun08/13/23 at 1415 1438 (Given - Provid er: Lacey Mas RN) PRN Medication Order 08/11/2023 08/12/2023 08/13/2023 gadoteridol (PROHANCE) injection 19 mL (COMPLETED) 19 mL, IntraVENous, IMG ONCE PRN, 1 dose, Starting on Sun08/13/23 at 1515, Until Sun08/13/23 at 1517, Other 1517 (Given - Provid er: Martha Monzon) iopamidol (ISOVUE-370) 76 % injection 75 mL (COMPLETED) 75 mL, IntraVENous, IMG ONCE PRN, 1 dose, Starting on Sun08/13/23 at 1248, Until Sun08/13/23 at 1250, Other 1250 (Given - Provid er: Mallika Sellers) Scheduled Medication Order 07/08/2024 07/09/2024 07/10/2024 acetaminophen (TYLENOL) tablet 500 mg, Oral, Every 6 hours, First dose (after last modification) on Sun07/09/24 at 1000, Until Discontinued 0949 (Given - Provider: Nidhi Del Cid RN)1654 (Given - Provider: Nidhi Del Cid RN)222 (Given - Provider: Jaswant Tavarez, SARAH) 042 (Given - Provider: Jaswant Tavarez RN)1000 (Due)1600 (Due)2200 (Due) atorvastatin (LIPITOR) tablet 20 mg, Oral, DAILY, First dose on Sun07/07/24 at 1717, Until Discontinued 0858 (Given - Provider: Tova Mac RN) 0949 (Given - Provider: Nidhi Del Cid RN) 0842 (Given - Provider: Nidhi Del Cid RN) baclofen (LIORESAL) 20 MG tablet 20 mg, Oral, DAILY WITH BREAKFAST, First dose on Sun07/08/24 at 0900, Until Discontinued 0900 (Hold/Not Given - Provider: Tova Mac RN - Reason: Patient refused) 0949 (Given - Provider: Nidhi Del Cid RN) 0842 (Given - Provider: Nidhi Del Cid RN) baclofen (LIORESAL) 20 MG tablet 40 mg, Oral, AT BEDTIME, First dose on Sun07/07/24 at 2200, Until Discontinued 000 (Given - Provider: Allyn Mariano RN)2103 (Given - Provider: Allyn Mariano, SARAH) 2223 (Given - Provider: Jaswant Tavarez RN) 0 (Due) DULoxetine (CYMBALTA) capsule 60 mg, Oral, AT BEDTIME, First dose on Sun07/07/24 at 2200, Until Discontinued 000 (Given - Provider: Allyn Mariano RN)2103 (Given - Provider: Allyn Mariano, SARAH) 2224 (Given - Provider: Jaswant Tavarez RN) 2200 (Due) enoxaparin (LOVENOX) 40 MG/0.4ML injection 40 mg 40 mg, Subcutaneous, DAILY, First dose on Sun07/07/24 at 1717, Until Discontinued 0900 (Hold/Not Given - Provider: Tova Mac RN - Reason: Patient refused) 0950 (Given - Provider: Nidhi Del Cid RN) 0842 (Given - Provider: Nidhi Del Cid RN) famotidine (PEPCID) tablet 20 mg, Oral, 2 TIMES DAILY, First dose on Sun07/07/24 at 1717, Until Discontinued 0858 (Given - Provider: Tova Mac RN)2104 (Given - Provider: Allyn Mariano RN) 0949 (Given - Provider: Nidhi Del Cid RN)2225 (Hold/Not Given - Provider: Jaswant Tavarez RN - Reason: Patient refused) 0842 (Given - Provider: Nidhi Del Cid RN)2100 (Due) lidocaine (LIDODERM) 4 % patch (CANCELED) 1 Patch, Transdermal, EVERY 24 HOURS, First dose on Sun07/08/24 at 1000, Until Discontinued 1124 (Patch Applied - Provider: Tova Mac RN)1716 (Patch Removal - Provider: Tova Mac RN - Comment: Time automatically adjusted from order being discontinued) lidocaine (LIDODERM) 4 % patch 2 Patch, Transdermal, EVERY 24 HOURS, First dose on Sun07/10/24 at 0900, Until Discontinued 0842 (Patch Applied - Provider: Nidhi Del Cid RN)204 (Due: Patch Removal - Provider: Nidhi Del Cid RN) methylPREDNISolone sodium succinate (SOLU-Medrol) 1,000 mg in dextrose 5 % 100 mL ivpb (custom dose) (CANCELED) 1,000 mg, Intravenous, EVERY 18 HOURS, 4 doses, First dose on Sun07/08/24 at 1900, Last dose on Sun07/11/24 at 0100 1938 (IV New Bag - Provider: Tova Mac RN) 1331 (IV New Bag - Provider: Nidhi Del Cid RN) methylPREDNISolone sodium succinate (SOLU-Medrol) 1,000 mg in dextrose 5 % 100 mL ivpb (custom dose) (COMPLETED) 1,000 mg, Intravenous, EVERY 18 HOURS, 1 dose, First dose (after last modification) on Alla 07/10/24 at 0700 0716 (IV New Bag - Provider: Jaswant Tavarez RN) Ozanimod HCl CAPS Oral, DAILY, 12 doses, First dose on Sun07/09/24 at 0900, Last dose on Sun07/20/24 at 0900 0950 (Given - Provider: Nidhi Del Cid RN) 0842 (Given - Provider: Nidhi Del Cid RN) pregabalin (LYRICA) capsule 300 mg, Oral, 2 TIMES DAILY, First dose on Sun07/09/24 at 1000, Until Discontinued 0949 (Given - Provider: Nidhi Del Cid RN)2224 (Given - Provider: Jaswant Tavarez RN) 0842 (Given - Provider: Nidhi Del Cid RN)2100 (Due) PRN Medication Order 07/08/2024 07/09/2024 07/10/2024 acetaminophen (TYLENOL) tablet (CANCELED) 500 mg, Oral, EVERY 8 HOURS PRN, Starting on 07/07/24 at 1646, Until Sun07/09/24 at 0912, Mild Pain (pain score 1,2,3), Moderate Pain (pain score 4,5,6), Severe Pain (pain score 7,8,9,10) 0858 (Given - Provider: Tova Mac RN) BIOTENE MOISTURIZING MOUTH spray SOLN 1 Redkey, Topical, EVERY 4 HOURS PRN, Starting on Sun07/09/24 at 0922, Until Discontinued, Dry Mouth ketorolac (TORADOL) TABS 10 mg, Oral, EVERY 6 HOURS PRN, Starting on Sun07/09/24 at 1022, Until Discontinued, Severe pain (7-10) 1330 (Given - Provider: Nidhi Del Cid RN) 0842 (Given - Provider: Nidhi Del Cid RN) FOR RECORDS PERTAINING TO PATIENTS WHO ARE OR HAVE BEEN ENROLLED IN A CHEMICAL DEPENDENCY/SUBSTANCEABUSE PROGRAM, SOME INFORMATION MAY BE OMITTED. This clinical summary was aggregated from multiple sources. Caution should be exercised in using it in the provision of clinical care. This summary normalizes information from multiple sources, and as a consequence, information in this document may materially change the coding, format and clinical context of patient data. In addition, data may be omitted in some cases. CLINICAL DECISIONS SHOULD BE BASED ON THE PRIMARY CLINICAL RECORDS. [facility] [employer] [facility] provides no warranty or guarantee of the accuracy or completeness of information in this document.
--- NOTE | 2024-09-13 07:31 | XR_ITS ---
[address] [address] Patient Name: VANESSA CRUZ MRN: [id number] date: 1970 Sex: F Assigned Patient Location: ER Current Patient Location: ER Accession/Order Number: [id number] Exam Date: 09/13/2024 07:40 Report Date: 09/13/2024 07:52 At the request of: GIACOMO KAPOOR Procedure: XR chest 1V Exam: Radiographs: XR chest 1V Reason for exam: cough Comparison: None XR/XR chest 1V IMPRESSION: Unremarkable chest x-ray. Electronically authenticated by: NAOMI GOMEZ Date: 09/13/2024 07:52
[2024-09-13 07:33] VITALS: O2SAT 100
[2024-09-13] MEDS: KETOROLAC TROMETHAMINE 60 MG/2 ML VIAL IM (07:42)
[2024-09-13 08:01] LABS: Influenza Virus A Antigen Negative; Influenza Virus B Antigen Negative; Internal Control Within Normal Limits; Respiratory Syncytial Virus Not Detected (NOT DETECTE); SARS-CoV-2 Ag NEGATIVE (NEGATIVE)
--- NOTE | 2024-09-13 08:10 | ED.URI1 ---
HPI - URI/Sore Throat General Chief Complaint: Upper Respiratory Infection Stated Complaint: chest pain and cough Time Seen by Provider: 09/13/24 07:24 Source: patient Limitations: no limitations History of Present Illness HPI Narrative: The patient is coming to the ER with almost 7 days history of upper respiratory tract symptoms of runny nose associated with a cough. She is complaining of generalized body pain that she thinks mostly secondary to her MS. there is no weakness no any symptoms that of numbness tingling or any other concerns but the patient mentioned that Toradol usually help her with her pain Patient denies any nausea vomiting or any diarrhea she also denies any fever or chills Related Data Home Medications ?Medication ?Instructions ?Recorded ?Confirmed atorvastatin 20 mg tablet 20 mg PO .QHS 08/29/24 09/13/24 baclofen 20 mg tablet 20 mg PO BID 08/29/24 09/13/24 duloxetine 30 mg capsule,delayed 60 mg PO .QHS 08/29/24 09/13/24 release ergocalciferol (vitamin D2) 1,250 50,000 unit PO QWEEK 08/29/24 09/13/24 mcg (50,000 unit) capsule pregabalin 300 mg capsule 300 mg PO BID 08/29/24 09/13/24 Previous Rx's ?Medication ?Instructions ?Recorded ondansetron 4 mg disintegrating 4 mg PO Q6H PRN nausea and 08/29/24 tablet vomiting #20 tabs diclofenac sodium 75 mg 75 mg PO BID PRN pain #14 tabs 09/13/24 tablet,delayed release guaifenesin 600 mg tablet, 600 mg PO BID PRN cough #10 tabs 09/13/24 extended release 12 hr (Mucinex) Allergies Allergy/AdvReac Type Severity Reaction Status Date / Time ibuprofen Allergy Mild Rash Verified 09/13/24 07:19 Review of Systems ROS Status of ROS 10 or more systems reviewed and unremarkable except as noted in history and below PFSH PFSH Social History Little interest or pleasure in doing things: not at all Feeling down, depressed, or hopeless: not at all Exam Narrative Exam Narrative: Nurses notes and vital signs reviewed and patient is not hypoxic. General: Well-appearing and in no apparent distress. Skin: Warm, dry, no pallor noted. No rash. Head: Normocephalic, atraumatic. Neck: Supple, non-tender. Eye: Pupils are equal, round and EOMI. No scleral icterus. Ears, Nose, Mouth, and Throat: TM are clear, no nasal mucosal hypertrophy. Oral mucosa is moist, no posterior oropharynx erythema, uvula is mid-line Cardiovascular: Regular Rate and Rhythm without murmur, gallop or rub. Respiratory: No accessory muscle use or respiratory distress. Lungs are clear to auscultation, no wheezing, rales or rhonchi Chest Wall: no tenderness Back: No midline thoracic or lumbar vertebral tenderness. No CVA tenderness Musculoskeletal: normal ROM, no calf or popliteal tenderness, no lower extremity edema/swelling GI: Abdomen is soft, non-distended. Normal bowel sounds. No masses appreciated. No tenderness to palpation. No rebound, guarding, or rigidity noted. Neurological: A&O x4. No cranial nerve dysfunction observed. Constitutional Vital Signs, click to edit/add: Last Vital Signs Temp 98.9 F 09/13/24 07:15 Pulse 71 09/13/24 07:15 Resp 18 09/13/24 07:15 BP 157/67 H 09/13/24 07:15 Pulse Ox 100 09/13/24 07:33 O2 Del Method Room Air 09/13/24 07:33 Course Vital Signs Vital signs: Vital Signs Temperature 98.9 F 09/13/24 07:15 Pulse Rate 09/13/24 07:15 Respiratory Rate 18 09/13/24 07:15 Blood Pressure 157/67 H 09/13/24 07:15 Pulse Oximetry 100 09/13/24 07:15 Oxygen Delivery Method Room Air 09/13/24 07:15 Temperature 98.9 F 09/13/24 07:15 Pulse Rate 71 09/13/24 07:15 Respiratory Rate 18 09/13/24 07:15 Blood Pressure 157/67 H 09/13/24 07:15 Pulse Oximetry 100 09/13/24 07:33 Oxygen Delivery Method Room Air 09/13/24 07:33 MDM - URI/Sore Throat MDM Narrative Medical decision making narrative: COVID flu and RSV test are negative Although the patient presenting with the concern that her MS is flared up her presentation mostly secondary to viral illness symptoms that she have runny nose and body ache Right now the patient chest x-ray showed no acute pathology she was just treated supportively with Mucinex and discharged home with Voltaren after she mentioned that Toradol works well for her and apparently she does not have allergy to all the NSAIDs The patient is to follow up with primary care physician in next 2-3 days or to return to the emergency department should any of the signs or symptoms worsen or new symptoms develop. The patient agrees with the following Diagnosis and Treatment plan and the patient will be discharged home. Lab Data Labs: Lab Results 09/13/24 Range/Units 07:45 Influenza Type A Ag Negative Influenza Type B Ag Negative RSV Antigen Not detected (NOT DETECTE) SARS-CoV-2 Ag (CV2AG) Negative (NEGATIVE) Discharge Plan Discharge Chief Complaint: Upper Respiratory Infection Clinical Impression: URTI (acute upper respiratory infection) Patient Disposition: Home, Self-Care Time of Disposition Decision: 08:11 Condition: Good Prescriptions / Home Meds: New diclofenac sodium 75 mg tablet,delayed release (DR/EC) 75 mg PO BID PRN (Reason: pain) Qty: 14 0RF guaifenesin [Mucinex] 600 mg tablet extended release 12hr 600 mg PO BID PRN (Reason: cough) Qty: 10 0RF No Action atorvastatin 20 mg tablet 20 mg PO .QHS baclofen 20 mg tablet 20 mg PO BID ergocalciferol (vitamin D2) 1,250 mcg (50,000 unit) capsule 50,000 unit PO QWEEK duloxetine 30 mg capsule,delayed release(DR/EC) 60 mg PO .QHS pregabalin 300 mg capsule 300 mg PO BID ondansetron 4 mg tablet,disintegrating 4 mg PO Q6H PRN (Reason: nausea and vomiting) Qty: 20 0RF Print Language: Georgian Instructions: Viral Syndrome (ED) Referrals: Physician,Non-Staff, MD [Primary Care Provider] - 1 week
== END 2024-09-13 08:20 | disposition home or self-care (01) ==
PROVIDERS: Emergency Provider Emergency Medicine
DX: J06.9 Acute upper respiratory infection, unspecified (principal); G35 Multiple sclerosis
CPT/HCPCS: 71045; 87420; 87804; 87811; 96372; 99284; J1885

== ENCOUNTER 2024-09-23 09:20 | Emergency (ER) | payer MEDICAID, SELFPAY ==
[2024-09-23 09:27] VITALS: BP 120/93; PULSE 70; O2SAT 99; BMI 46.5
[2024-09-23 09:38] VITALS: TEMP 36.6
--- NOTE | 2024-09-23 09:49 | ED.BACK1 ---
HPI HPI - Back Pain/Injury General Chief Complaint: Back Pain/Injury Stated Complaint: BODY PAIN -MS Time Seen by Provider: 09/23/24 09:34 Source: patient Mode of arrival: Wheelchair Limitations: physical limitation History of Present Illness HPI Narrative: 53-year-old female to the emergency department chief complaint of generalized muscle cramps. Patient reports she has a history of MS and gets muscle spasms. She reports typically a shot of Toradol and some rest helps relieve these. She denies any numbness, weakness, tingling. No difficulty walking. No bowel bladder incontinence or retention. Typical symptoms for her today. No fever, sweats, chills. No trauma or injuries. Related Data Home Medications ?Medication ?Instructions ?Recorded ?Confirmed atorvastatin 20 mg tablet 20 mg PO .QHS 08/29/24 09/23/24 baclofen 20 mg tablet 20 mg PO BID 08/29/24 09/23/24 duloxetine 30 mg capsule,delayed 60 mg PO .QHS 08/29/24 09/23/24 release ergocalciferol (vitamin D2) 1,250 50,000 unit PO QWEEK 08/29/24 09/23/24 mcg (50,000 unit) capsule pregabalin 300 mg capsule 300 mg PO BID 08/29/24 09/23/24 ketorolac 10 mg tablet 10 mg PO Q6H PRN pain 09/23/24 09/23/24 lidocaine 5 % topical patch 1 patch topical Q24H 09/23/24 09/23/24 ozanimod 0.92 mg capsule (Zeposia) 0.92 mg PO DAILY 09/23/24 09/23/24 Previous Rx's ?Medication ?Instructions ?Recorded diclofenac sodium 75 mg 75 mg PO BID PRN pain #14 tabs 09/13/24 tablet,delayed release Allergies Allergy/AdvReac Type Severity Reaction Status Date / Time ibuprofen Allergy Mild Rash Verified 09/13/24 07:19 Opioid HPI Opioid Management Most Recent Opioid Data: Last Pain Scale 10 09/13/24 07:42 09/13/24 Review of Systems ROS Status of ROS 10 or more systems reviewed and unremarkable except as noted in history and below PFSH PFSH Social History Little interest or pleasure in doing things: not at all Feeling down, depressed, or hopeless: not at all Exam Narrative Exam Narrative: VITALS: I have reviewed the triage vital signs. GENERAL: Well developed, well appearing adult in no acute distress. NEURO: Alert and oriented. Moves all extremities. Face is symmetric and expressive. Patellar reflexes brisk and equal bilaterally. Normal gait. Plantar flexion/dorsiflexion, knee flexion/extension, hip flexion/extension are grossly intact with 5/5 strength. Sensation is intact across the bilateral lower extremities. SPINE: No midline cervical, thoracic, or lumbar tenderness. No step-off or deformities. No paraspinal muscle tenderness or increased tone. EYES: PERRL. No scleral icterus or conjunctival injection. No discharge. HENT: Normocephalic, atraumatic. Hearing is grossly intact. Nares grossly patent and without discharge. Mucous membranes moist. NECK: No JVD. Patient moves neck without restriction. CARDIO: Rhythm regular. Normal rate. No murmur, rub, or gallop. Pulses equal bilaterally in the upper and lower extremity. No lower extremity edema. PULM: Lungs clear to auscultation in all leger. No wheezes, rales, or rhonchi. No conversational dyspnea. No splinting, stridor, or accessory muscle use. GI/: Abdomen is soft and non-tender. Normoactive bowel sounds. No flank tenderness. EXTREMITIES: Symmetric muscle bulk. No joint swelling. No clubbing, cyanosis, or deformity. SKIN: Warm and dry. Normal turgor. No rash or lesions appreciated. PSYCH: Mood, affect, and interaction is appropriate to the setting. Constitutional Vital Signs, click to edit/add: Last Vital Signs Temp 97.9 F 09/23/24 09:38 Pulse 70 09/23/24 09:27 Resp 18 09/23/24 09:27 BP 120/93 H 09/23/24 09:27 Pulse Ox 99 09/23/24 09:27 O2 Del Method Room Air 09/23/24 09:27 Course Vital Signs Vital signs: Vital Signs Pulse Rate 70 09/23/24 09:27 Respiratory Rate 18 09/23/24 09:27 Blood Pressure 120/93 H 09/23/24 09:27 Pulse Oximetry 99 09/23/24 09:27 Oxygen Delivery Method Room Air 09/23/24 09:27 Temperature 97.9 F 09/23/24 09:38 Pulse Rate 70 09/23/24 09:27 Respiratory Rate 18 09/23/24 09:27 Blood Pressure 120/93 H 09/23/24 09:27 Pulse Oximetry 99 09/23/24 09:27 Oxygen Delivery Method Room Air 09/23/24 09:27 MDM - Back Pain/Injury MDM Narrative Medical decision making narrative: Well-appearing and incredibly kind 53-year-old female to the emergency department chief complaint of acute on chronic muscle spasms. Vital stable, the patient is afebrile. No red flags for back pain exam for cord compressing lesion. She requested a shot of Toradol and a work note. These were given. Return precautions were discussed. All questions were answered. The patient was discharged home. Medical Records Attestation: I reviewed the patient's medical records. Discharge Plan Discharge Chief Complaint: Back Pain/Injury Clinical Impression: Muscle spasm Patient Disposition: Home, Self-Care Time of Disposition Decision: 09:48 Condition: Good Prescriptions / Home Meds: No Action atorvastatin 20 mg tablet 20 mg PO .QHS baclofen 20 mg tablet 20 mg PO BID ergocalciferol (vitamin D2) 1,250 mcg (50,000 unit) capsule 50,000 unit PO QWEEK duloxetine 30 mg capsule,delayed release(DR/EC) 60 mg PO .QHS pregabalin 300 mg capsule 300 mg PO BID diclofenac sodium 75 mg tablet,delayed release (DR/EC) 75 mg PO BID PRN (Reason: pain) Qty: 14 0RF Zeposia 0.92 mg capsule 0.92 mg PO DAILY lidocaine 5 % adhesive patch,medicated 1 patch topical Q24H ketorolac 10 mg tablet 10 mg PO Q6H PRN (Reason: pain) Print Language: Citizen [place] Instructions: Muscle Spasm (ED) Additional Instructions: Call the office of your primary care doctor to arrange for follow-up within the above-stated timeframe. Your ED visit was focused on your acute issue and does not replace primary care. You should review your labs, imaging, and diagnoses from this ED visit with your primary care physician. There may be non-emergent/ incidental findings that need further evaluation. You should review your vital signs including blood pressure with your PCP. If you were prescribed medications you should discuss possible side-effects and drug interactions with your pharmacist. Call 911 or go to the nearest Emergency Department if you develop any new or worsening symptoms. Seek immediate medical attention if you develop: increasing pain, numbness, tingling, weakness, loss of motion in your arms or legs, loss of control of your urine or stool, fever, abdominal pain, chest pain, shortness of breath, or any new or worsening symptoms. Referrals: JOSÉ MANUEL DORSEY [Physician] - 1 week (Follow-up to discuss your trigger finger) Physician,Non-Staff, [Primary Care Provider] - 1 week
[2024-09-23] MEDS: KETOROLAC TROMETHAMINE 30 MG/ML VIAL IM (10:05)
== END 2024-09-23 10:14 | disposition home or self-care (01) ==
PROVIDERS: Emergency Provider Student in an Organized Health Care Education/Training Program
DX: M62.838 Other muscle spasm (principal); G35 Multiple sclerosis
CPT/HCPCS: 96372; 99284; J1885

== ENCOUNTER 2024-10-19 09:37 | Emergency (ER) | payer MEDICAID, SELFPAY ==
[2024-10-19 09:38] VITALS: BP 151/88; PULSE 68; TEMP 36.8; O2SAT 100; BMI 47.5
--- NOTE | 2024-10-19 09:45 | PC.NURSE ---
Patient reports having MS flare up , reports having pain all over for past 4 days with pain worsening today.
--- OUTSIDE RECORDS SUMMARY | 2024-10-19 09:49 | XMS_ITS | CCD ---
Author Organization [facility] Care Team Providers Care Ux Manager Name Role Phone CLINKER, GORAN Admitting Unavailable [...] GORAN Attending Unavailable SELF, REFERRED Referring [facility]available [facility] Care Unavailable ANUSHA SALVADOR Admitting Unavailable ANUSHA SALVADOR Attending Unavailable Spasic, Robe E Unavailable Schwerer DO, Rina E Primary Care Provider Schwerer DO, Rina E Unavailable Schwerer, Rina Unavailable Spasic, Robe E Unavailable Schwerer DO, Rina E Primary Care Provider Schwerer DO, Rina E Unavailable Spasic, Robe E Unavailable Schwerer DO, Rina E Primary Care Provider Schwerer DO, Rina E Unavailable Spasic, Robe E Unavailable Schwerer DO, Rina E Primary Care Provider Schwerer DO, Rina E Unavailable [phone] Schwerer, DO Rina E Primary Care Provider Schwerer, DO Rina E Attending Provider [facility], [facility] Primary Care Provider ROBERT MckeonC Robe Garnica Referring Provider MARINO Gonzáles Attending Provider Schwerer, DO Rina E Primary Care Provider Tupa, DO Jaswant Crowley Emergency Provider [phone] Sandro Burgos MD Primary Care Prov ider Spasi ACTIVITIES MANAGER, Robe Garnica Unavailable Schwerer DO, Rina E Unavailable [phone] Unavailable Primary Care Provider Unavailabl danika Almeidar, [...] Provider Unava ilable REAL Kemp Attending Provider [phone] Schwerer, Rina E Primary Care Unavailable Jaswant Freitas Attending Unavailable Jaswant Freitas Admitting Unavailable Sandro Burgos Attending Unav ailable Sandro Burgos Admitting Unav ailable Schwerer, Rina E Primary Care Unavailable Raymond Kemp Attending Unavailable Raymond Kemp Admitting Unavailable NO FAMILY, PHYSICIAN Primary Care Unavailable Kim RPh, Paulo Unavailable Unavailable Schwerer DO, Rina E Unavailable Unavailable Primary Care Provider Unavailabl e NAIN YOUSIF Attending Unavailable YOUSIF GILLETTE Admitting Unavailable REQUEST, IP PHYSICAL THERAPY SERVICE Consulting Unavailable REQUEST, IP OCCUPATIONAL THERAPY SERVICE Consult ing Unavailable CONSULT, IP NEUROLOGY Consulting Unavailabl e CONSULT, IP OPHTHAMOLOGY Consulting Unavail able PROVIDER, UNKNOWN Admitting Unavailable PROVIDER, UNKNOWN Attending Unavailable Kelly [email or web address] HOUSEKEEPERAlpa Unavailable Larry [email or web address] HOUSEKEEPER, Ciera Moore Unavailable RAYMOND KEMP Attending Unavailable GALLO URMILA, SANDRO Primary Care Unav ailable RAYMOND KEMP Attending Unavailable GALLO URMILA, SANDRO Primary Care Unav ailable GALLO URMILA, SANDRO Primary Care Unav ailable RAYMOND KEMP Referring Unavailable GALLO URMILA, SANDRO Primary Care Unav ailable FREDA HERNANDEZ Attending Unavailable SABINO HINOJOSA, SANDRO Primary Care Unav ailable FREDA HERNANDEZ Referring Unavailable SAL MALLOY Referring Unavailable FREDA HERNANDEZ Attending Unavailable GALLO URMILA, SANDRO Primary Care Unav ailable RAYMOND KEMP Referring Unavailable GALLO URMILA, SANDRO Primary Care Unav ailable GALLO URMILA, SANDRO Primary Care Unav ailable RAYMOND KEMP Referring Unavailable GALLO URMILA, SANDRO Primary Care Unav ailable RAYMOND KEMP Referring Unavailable GALLO URMILA, SANDRO Primary Care Unav ailable RAYMOND KEMP Attending Unavailable SABINO MARREROZ, SANDRO Primary Care Unav ailable SAL MALLOY Attending Unavailable GALLO URMILA, SANDRO Primary Care Unav ailable RAYMOND KEMP Attending Unavailable GALLO URMILA, SANDRO Primary Care Unav ailable RAYMOND KEMP Referring Unavailable Allergies Allergy Classification Reported Allergen(s) Allergy Type Date of Onset Reaction(s) Facility [facility]io[facility]onists (1 source) traMADol Drug Allergy 0 [facility] (7 sources) NSAIDs; Translations: [NSAIDS (NON-STEROIDAL ANTI-INFLAMMATO RY DRUG)] Drug allergy (disorder) 0 [facility] (5 sources) Non-steroidal anti-inflammato ry agent Drug Allergy 0 Other: See Comments [facility] (20 sources) traMADol; Translations: [TRAMADOL] Drug Allergy 0 Other: See Ivon, [facility] (16 sources) NSAIDs Propensity to adverse reactions 4 Unknown [facility] (20 sources) Non-steroidal anti-inflammato ry agent Drug Allergy 0 Other: See Comments, [facility] (6 sources) NSAIDS (Non-Steroidal Anti-Inflamma; Translations: [NSAIDS (Non-Steroidal Anti-Inflamma] Allergy to substance 2 Rash [facility] (1 source) traMADol Drug Allergy 3 [facility] Repository Medications Current Medications Medication Drug Class(es) Dates Sig (Normalized) Sig (Original) atorvastatin 20 mg oral tablet (20 sources) HMG-CoA Reductase Inhibitor Start: 07-28-2019 End: 09-25-2025 take 1 tablet by mouth once daily atorvastatin (LIPITOR) 20 mg tablet Indications: Mixed hyperlipidemia Take 1 tablet by mouth once daily. 30 tablet 5 09/25/2024 09/25/2025 Active Comment on above: Take 20 mg by mouth once daily. Take 1 tablet by janeth once daily. cetirizine hydrochloride 10 mg oral [...] Take by mouth q 24 H R. diclofenac sodium 75 mg delayed release oral tablet (2 sources) Nonsteroidal Anti-inflammatory Drug Start: 5 diclofenac, EC, (VOLTAREN) 75 mg EC tablet Take 75 mg by mouth as needed. 09/13/2024 Active DULoxetine 60 mg delayed release oral capsule [...] topical cream (20 sources) Corticosteroid Start: End: 025 hydrocortisone 0.5 % cream Indications: Rash APPLY [...] two times a day for 7 days. iv contrast (will be provided with radiology test) (20 sources) Start: 10-10-19 End: 10-11-19 inject 1 dose intravenously once iv contrast (will be provided with radiology test) Indications: Multiple sclerosis (HCC) MRI TSP Inject, intravenously, once for [...] MR contrast administration guidelines link. 1 Each 10/09/2024 10/10/2024 Active Start: 10-09-2024 End: 10-10-2024 iv contrast (will be provide d with radiology test) Indications: Multiple sclerosis (HCC) MRI LSP Inject, intravenously, once for 1 dose. No [...] MR contrast administration guidelines link. 1 Each 10/09/2024 10/10/2024 Active Start: 05-08-2024 End: 05-09-2024 iv contrast (will [...] in the MR contrast administration guidelines link. ketorolac tromethamine 10 mg oral tablet (20 sources) Nonsteroidal Anti-inflammatory Drug, Cyclooxygenase Inhibitor Start: 06-16-20 24 End: 08-21-19 25 take 1 tablet by mouth every six [...] dose on Sun07/08/24 at 1000, Until Discontinued Start: 07-07-2024 End: 07-08-2024 apply 2 doses transdermal route every twenty-four hours 2 Patch, Transdermal, EVERY 24 HOURS, First dose on 07/07/24 at 1455, Until Discontinued Start: 07-19-2023 End: [...] affected area. Remove patch after 12 hours. 24 hr mirabegron 50 mg extended release oral tablet (2 sources) beta3-Adrenergic Agonist Start: 10-09-2024 take 1 tablet by mouth once daily mirabegron (MYRBETRIQ) 50 mg Tb24 Indications: Multiple sclerosis (HCC) , Urinary frequency TAKE 25 mg (half tablet) by mouth daily 90 tablet 1 10/09/2024 Active nystatin 100 unt/mg topical powder (6 sources) [...] two times a day for 7 days. ondansetron 4 mg disintegrating oral tablet (3 sources) Serotonin-3 Receptor Antagonist Start: 08-29-2024 ondansetron orally disintegrating (ZOFRAN ODT) 4 mg disintegrating tablet Take 4 mg by mouth as needed. 08/29/2024 Active Start: 08-13-2023 End: 08-13-2023 ondansetron (ZOFRAN) injecti on 4 mg ozanimod 0.92 mg oral capsule (20 sources) Start: 12-05-2020 End: 07-21-2024 take 1 capsule by mouth once daily ozanimod (ZEPOSIA) 0.92 mg capsule Indications: Multiple sclerosis (HCC) Take 1 capsule by mouth once daily. 30 capsule 3 09/05/2024 10:05 AM EST 07/02/2024 Active Comment on above: Take 1 capsule by mo uth once daily polyethylene glycol 3350 02325 mg powder for oral solution (20 sources) Osmotic Laxative Start: 10-09-2024 End: 04-07-2025 polyethylene glycol 3350 (MIRALAX) 17 gram/dose powder Indications: Multiple sclerosis (HCC) , Other constipation Take 17 g by mouth once daily. Dissolve dose in 4 - 8 ounces of liquid and take as directed. 510 g 5 10/09/2024 04/07/2025 Active Start: 04-18-2023 End: 01-15-2024 polyethylene glycol 3350 (AZ RALAX) 17 gram/dose powder Indications: Constipation, unspecified constipation [...] 300 mg oral capsule (20 sources) Start: 07-09-2024 take 300 mg by mouth twice daily 300 mg, Oral, 2 TIMES DAILY, First dose on Sun07/09/24 at 1000, Until Discontinued Start: 07-07-2024 End: 07-07-2024 take 1 dose by mouth once 300 mg, Oral, Once, 1 dose, On Sun07/07/24 at 1705 Start: 05-21-2023 End: 10-25-2024 take 1 capsule by mouth twice daily pregabalin (LYRICA) 300 mg capsule Indications: Multiple sclerosis (HCC) , Neuropathic pain Take 1 capsule by mouth two times a day for 30 days. 60 capsule 5 09/25/2024 10/25/2024 Active Start: 09-26-2021 End: 05-18-2023 take 1 [...] 60 mg/ml topical cream (3 sources) Start: 7 SALEX 6 % EX CREA apply to affected areas bid 1 large trade 1 08/21/2006 Active 5 ml sodium chloride 9 mg/ml injection (1 source) Start: 4 End: 4 sodium chloride flush 0.9 % injection 5-40 mL tiZANidine 2 mg oral tablet (2 sources) Central alpha-2 Adrenergic Agonist Start: 5 End: 5 take 1 tablet by mouth twice daily tiZANidine (ZANAFLEX) 2 mg tablet Indications: Multiple sclerosis (HCC) , Spasticity Take 1 tablet by mouth two times a day. 60 tablet 3 10/09/2024 02/06/2025 Active vitamin b12 1 mg oral tablet (20 sources) Vitamin B12 Start: 5 End: 6 take 1 tablet by mouth once daily cyanocobalamin (VITAMIN B-12) 1,000 mcg tab Indications: Low serum vitamin B12 , Multiple sclerosis (HCC) Take 1 tablet by mouth once daily. 90 tablet 3 10/10/2024 10/10/2025 Active Start: 05-09-2024 End: 08-07-2024 take 1 tablet by mouth once daily [...] Comment on above: Take 1 tablet by [facility] once daily. Completed/Discontinued Medications Medication Drug Class(es) Dates Sig [...] oral tablet (7 sources) Opioid Agonist Start: 9 End: 3 acetaminophen-codeine (TYLENOL-COD #3) 300-30 mg [...] 1 TAB PO EVERY 4-6 HOURS 10 3 January 07, 2021 January 18, 2021 3:46am Start: 12-23-2019 End: 12-23-2019 take 1 tablet by mouth every four to six hours Hydrocodone-Acetaminophen ([place]helsea) 5-325 mg Tablet Discontinued 1 TAB PO EVERY 4-6 HOURS December 23, 2019 12:00am December 23, 2019 10:26am Start: 11-07-2018 End: 2018 take 1 tablet by mouth every six hours Hydrocodone-Acetaminophen ([place]) 5-325 mg tablet Discontinued 1 TAB PO [...] 3 mL, Nebulization, STAT, 1 dose, On Sun07/07/24 at 1223 ARIPiprazole 30 mg oral tablet [...] mouth every four hours as needed 1 [place], Topical, EVERY 4 HOURS PRN, Starting on [...] drops Discontinued 5 DROPS OTIC Twice daily January 18, 2018 12:00am January 22, 2018 12:01am tilt head to instill into ear; keep head tilted for 2-[address] cotton in ear cephalexin 500 mg oral capsule (5 sources) Cephalosporin Antibacterial Start: End: take 1000 mg by mouth every [...] Hc) 1-1 % foam Discontinued 1 APPLIC MA Daily November 07, 2018 12:00am July 28, [...] iopamidol (ISOVUE-370) 76 % injection 75 mL loxapine 25 mg oral capsule (5 sources) Start: 01-18-2018 End: 07-28-2019 take 25 mg by mouth once daily Loxapine Succinate Discontinued 25 MG PO Daily January 18, 2018 12:00am July 28, 2019 10:57am methocarbamol 500 mg oral tablet (1 source) Muscle Relaxant Start: 07-07-2024 End: 07-07-2024 750 mg, Oral, STAT, 1 dose, On Sun07/07/24 at 1455 methylPREDNISolone sodium (SOLU-MEDROL) 1,000 mg in sodium chloride 0.9 % 250 mL IVPB (2 sources) Start: 08-14-2023 End: 08-14-2023 methylPREDNISolone sodium (SOLU-MEDROL) 1,000 mg in sodium [...] Olanzapine Discontinued 5 MG PO Q6H 20 December 10, 2020 12:00am January 18, 2021 3:46am ONE DAILY ESSENTIAL 400 mcg (20 sources) Start: 0 End: 3 take 1 tablet by mouth once daily ONE DAILY ESSENTIAL 400 mcg Take 1 tablet by mouth once daily. 0 01/10/2020 08/17/2022 Discontinued (Course of therapy completed) Start: 01-10-2020 take 1 tablet by janeth th once daily ONE DAILY ESSENTIAL 400 mcg Take 1 tablet by mouth once daily. 0 01/10/2020 Active Comment on above: Take 1 tablet by janeth th once daily. Ozanimod (4 sources) Start: 08-14-2020 [...] Change) Start: 06-24-2021 take 2 tablets by [facility] every twenty-four hours Start: 01-18-2021 End: 04-08-2023 [...] Daily at bedtime December 05, 2020 12:00am Cint[place] 22nd, 2021 1:04pm Comment on above: TAKE 1/2 [...] Start: 03-04-2021 take 1 tablet by janeth th every twelve hours Zoloft 50 MG 1 tablet Orally BID for 30 days Feb, Active Start: 01-18-2018 End: 12-10-2020 take 100 mg by mouth twice daily Sertraline Discontinued 100 MG PO Twice daily January 18, 2018 12:00am December 10, 2020 12:20pm Comment on above: Take 1 tablet by janeth th once daily. Take 50mg once daily for one week then increase to 100mg once daily. Take all by mouth Take 2 tablets by mo [facility] once daily. sulfamethoxazole 800 mg / trimethoprim 160 mg oral tablet (5 sources) Dihydrofolate Reductase Inhibitor Antibacterial, Sulfonamide Antimicrobial Start: End: take 1 tablet by mouth twice daily Sulfamethoxazole-Tr imethoprim (Bactrim Ds) 800-160 mg tablet Discontinued 1 TAB PO Twice daily 14 January 18, 2018 12:00am January 25, 2018 12:02am traZODone hydrochloride 50 mg oral tablet (5 sources) Serotonin Reuptake Inhibitor Start: End: take 50 mg by mouth once daily at bedtime Trazodone Discontinued 50 MG PO Daily at bedtime December 10, 2020 12:00am January 18, 2021 3:46am WALKER ROLLATOR SEAT WITH 6 WHEELS - RED (7 sources) Start: End: WALKER ROLLATOR SEAT WITH 6 WHEELS - [...] unspecified] 07-07-2024 Episodic Diabetes mellitus without complication (3 sources) Prediabetes; Translations: [Prediabetes] Onset: 10-09-2024 06-17-2024 Episodic Disorders of lipid metabolism (20 sources) Hyperlipidemia; Translations: [Hyperlipidemia, unspecified] Onset: 05-08-2022 05-08-2022 Chronic E Codes: Natural/environment (4 sources) Insect bite - wound; Translations: [Bitten or stung by nonvenomous insect and other nonvenomous arthropods, initial encounter] 04-08-2023 Episodic Genitourinary symptoms and ill-defined conditions (3 sources) Retention of urine; Translations: [Retention of urine, [...] sources) Postmenopausal bleeding; Translations: [Postmenopausal bleeding] Onset: 06-10-2024 02-14-2024 Chronic Mood disorders (20 sources) Recurrent major depressive episodes, moderate ; Translations: [Major depressive disorder, recurrent, moderate] Onset: 05-08-2022 05-08-2022 Chronic Multiple sclerosis (20 sources) Multiple sclerosis; Translations: [Multiple sclerosis] Onset: 03-30-2020 Resolved: 08-16-2021 Chronic Nutritional deficiencies (20 sources) Vitamin D deficiency; Translations: [Vitamin D deficiency, unspecified] Onset: 07-02-2023 Chronic Nutritional deficiencies (1 source) Serum vitamin B12 low; Translations: [Deficiency of other specified B group vitamins] 10-10-2024 Episodic Other aftercare (9 sources) Patient encounter status; Translations: [Encounter for therapeutic drug level monitoring] Episodic Other aftercare (2 sources) 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 driver (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) drug therapy; Translations: [Other penitentiary (current) drug therapy] Onset: 07-02-2023 Episodic Other [...] Onset: 08-21-2024 Episodic Other connective tissue disease (14 sources) Neuropathic pain; Translations: [Neuralgia and neuritis, unspecified] Episodic Other connective tissue disease (6 sources) Spasticity; Translations: [Cramp and spasm] Episodic [...] genital organs] 10-09-2022 Episodic Other gastrointestinal disorders (2 sources) Constipation; Translations: [Constipation, unspecified] 07-19-2023 Episodic Other [...] pain without sciatica] Onset: 08-21-2024 Chronic Other nervous system disorders (1 source) Paresthesia; Translations: [Paresthesia of skin] 10-09-2024 Episodic Other nervous system disorders (1 source) Paresthesia of skin; Translations: [Paresthesias] Onset: 10-09-2024 Episodic Other non-traumatic joint disorders (2 sources) Joint [...] Test Name Value Interpretation Reference Range Facility CBC W Auto Differential pane l (Bld)on 10-09-2024 Basophils (Bld) [#/Vol] [facility] Basophils/100 WBC (Bld) 0.2 % [facility] Differential cell count method Nom (Bld) Auto [facility] Eosinophils (Bld) [#/Vol] 0.35 10*3/uL NINF [facility] Eosinophils/100 WBC (Bld) 4.1 % [facility] Erythrocyte distribution width (RBC) [Ratio] 13.2 % 11.5 - 15.0 % [facility] Hematocrit (Bld) [Volume fraction] 42.9 % 36.0 - 46.0 % [facility] Hemoglobin (Bld) [Mass/Vol] 13.3 g/dL 11.5 - 15.5 g/dL [facility] Immature granulocytes (Bld) [#/Vol] 0.04 10*3/uL [facility] Immature granulocytes/100 WBC (Bld) 0.5 % [facility] Lymphocytes (Bld) [#/Vol] 1.03 10*3/uL [facility] Lymphocytes/100 WBC (Bld) 12 % [facility] MCH (RBC) [Entitic mass] 29.3 pg 26.0 - 34.0 pg [facility] MCHC (RBC) [Mass/Vol] 31 g/dL 30.5 - 36.0 g/dL [facility] MCV (RBC) [Entitic vol] 94.5 fL 80.0 - 100.0 fL [facility] Monocytes (Bld) [#/Vol] 0.62 10*3/uL [facility] Monocytes/100 WBC (Bld) 7.2 % [facility] Neutrophils (Bld) [#/Vol] 6.51 10*3/uL [facility] Neutrophils/100 WBC (Bld) 76 % [facility] Nucleated RBC (Bld) [#/Vol] [facility] Nucleated RBC/100 WBC (Bld) [Ratio] 0 % /100 WBC [facility] Platelet mean volume (Bld) [Entitic vol] 12.2 fL 9.0 - 12.7 fL [facility] Platelets (Bld) [#/Vol] 346 10*3/uL [facility] RBC (Bld) [#/Vol] 4.54 10*6/uL 3.90 - 5.2 0 m/uL [facility] WBC (Bld) [#/Vol] 8.57 10*3/uL [facility] Basophils (Bld) [#/Vol] 10*3/uL Normal <0.11 [facility] Comment on above: Order Comment: Speci men Type: BLOOD SPECIMENOrdering Facility: [facility] Address: [address] [place] [address] Performed By: #### 5 7021-8 ####[facility] [id number] [place] [address] [place] Basophils/100 WBC (Bld) 0.2 % Normal [facility] Comment on above: Order Comment: Speci men Type: BLOOD SPECIMENOrdering Facility: [facility] Address: [address] [place] [address] Performed By: #### 5 7021-8 ####[facility] [id number] [address] OF [facility] Differential cell count method Nom (Bld) Auto Normal [facility] Comment on above: Order Comment: Speci men Type: BLOOD SPECIMENOrdering Facility: [facility] Address: [address] [place] [address] Performed By: #### 5 7021-8 ####[facility] [id number] [address] [place] Eosinophils (Bld) [#/Vol] 0.35 10*3/uL Normal <0.46 [facility] Comment on above: Order Comment: Speci men Type: BLOOD SPECIMENOrdering Facility: [facility] Address: [address] [place] [address] Performed By: #### 5 7021-8 ####[facility] [id number] [address] [place] Eosinophils/100 WBC (Bld) 4.1 % Normal [facility] Comment on above: Order Comment: Speci men Type: BLOOD SPECIMENOrdering Facility: [facility] Address: [address] [place] [address] Performed By: #### 5 7021-8 ####[facility] [id number] [place] [address] [place] Erythrocyte distribution width (RBC) [Ratio] 13.2 % Normal 11.5-15.0 [facility] Comment on above: Order Comment: Speci men Type: BLOOD SPECIMENOrdering Facility: [facility] Address: [address] [place] [address] Performed By: #### 5 7021-8 ####[facility] LABIA [id number] [place] [address] [place] Hematocrit (Bld) [Volume fraction] 42.9 % Normal 36.0-46.0 [facility] Comment on above: Order Comment: Speci men Type: BLOOD SPECIMENOrdering Facility: [facility] Address: [address] [place] [address] Performed By: #### 5 7021-8 ####[facility] LABIA [id number] [place] [address] [place] Hemoglobin (Bld) [Mass/Vol] 13.3 g/dL Normal 11.5-15.5 [facility] Comment on above: Order Comment: Speci men Type: BLOOD SPECIMENOrdering Facility: [facility] Address: [address] [place] [address] Performed By: #### 5 7021-8 ####[facility] LABIA [id number] [place] [address] [place] Immature granulocytes (Bld) [#/Vol] 0.04 10*3/uL Normal <0.10 [facility] Comment on above: Order Comment: Speci men Type: BLOOD SPECIMENOrdering Facility: [facility] Address: [address] [place] [address] Performed By: #### 5 7021-8 ####[facility] LABIA [id number] [place] [address] [place] Immature granulocytes/100 WBC (Bld) 0.5 % Normal [facility] Comment on above: Order Comment: Speci men Type: BLOOD SPECIMENOrdering Facility: [facility] Address: [address] [place] [address] Performed By: #### 5 7021-8 ####[facility] [id number] [place] [address] [place] Lymphocytes (Bld) [#/Vol] 1.03 10*3/uL Normal 1.00-4.00 [facility] Comment on above: Order Comment: Speci men Type: BLOOD SPECIMENOrdering Facility: [facility] Address: [address] [place] [address] Performed By: #### 5 7021-8 ####[facility] [id number] [place] [address] [place] Lymphocytes/100 WBC (Bld) 12.0 % Normal [facility] Comment on above: Order Comment: Speci men Type: BLOOD SPECIMENOrdering Facility: [facility] Address: [address] [place] [address] Performed By: #### 5 7021-8 ####[facility] [id number] [place] [address] [place] MCH (RBC) [Entitic mass] 29.3 pg Normal 26.0-34.0 [facility] Comment on above: Order Comment: Speci men Type: BLOOD SPECIMENOrdering Facility: [facility] Address: [address] [place] [address] Performed By: #### 5 7021-8 ####[facility]CL[facility] [id number] [place] [id number] [place] MCHC (RBC) [Mass/Vol] 31.0 g/dL Normal 30.5-36.0 [facility] Comment on above: Order Comment: Speci men Type: BLOOD SPECIMENOrdering Facility: [facility] Address: [address] [place] [address] Performed By: #### 5 7021-8 ####[facility]CL[facility] [id number] [place] [address] [place] MCV (RBC) [Entitic vol] 94.5 fL Normal 80.0-100.0 C [facility] Comment on above: Order Comment: Speci men Type: BLOOD SPECIMENOrdering Facility: [facility] Address: [address] [place] [address] Performed By: #### 5 7021-8 ####[facility]CL[facility] [id number] [place] [address] [place] Monocytes (Bld) [#/Vol] 0.62 10*3/uL Normal <0.87 [facility] Comment on above: Order Comment: Speci men Type: BLOOD SPECIMENOrdering Facility: [facility] Address: [address] [place] [address] Performed By: #### 5 7021-8 ####[facility]CL[facility] [id number] [place] [address] [place] Monocytes/100 WBC (Bld) 7.2 % Normal [facility] Comment on above: Order Comment: Speci men Type: BLOOD SPECIMENOrdering Facility: [facility] Address: [address] [place] [address] Performed By: #### 5 7021-8 ####[facility]CL[facility] [id number] [place] [address] [place] Neutrophils (Bld) [#/Vol] 6.51 10*3/uL Normal 1.45-7.50 [facility] Comment on above: Order Comment: Speci men Type: BLOOD SPECIMENOrdering Facility: [facility] Address: [address] [place] [address] Performed By: #### 5 7021-8 ####[facility] [id number] [place] [id number] [place] Neutrophils/100 WBC (Bld) 76.0 % Normal [facility] Comment on above: Order Comment: Speci men Type: BLOOD SPECIMENOrdering Facility: [facility] Address: [address] [place] [address] Performed By: #### 5 7021-8 ####[facility] LABCLIA [id number] [place] [address] [place] Nucleated RBC (Bld) [#/Vol] 10*3/uL Normal <0.01 [facility] Comment on above: Order Comment: Speci men Type: BLOOD SPECIMENOrdering Facility: [facility] Address: [address] [place] [address] Performed By: #### 5 7021-8 ####[facility] LABCLIA [id number] [place] [address] [place] Nucleated RBC/100 WBC (Bld) [Ratio] 0.0 /100 WBC Normal [facility] Comment on above: Order Comment: Speci men Type: BLOOD SPECIMENOrdering Facility: [facility] Address: [address] [place] [address] Performed By: #### 5 7021-8 ####[facility] LABIA [id number] [place] [address] [place] Platelet mean volume (Bld) [Entitic vol] 12.2 fL Normal 9.0-12.7 [facility] Comment on above: Order Comment: Speci men Type: BLOOD SPECIMENOrdering Facility: [facility] Address: [address] [place] [address] Performed By: #### 5 7021-8 ####[facility] LABCLIA [id number] [place] [id number] [place] Platelets (Bld) [#/Vol] 346 10*3/uL Normal 150-400 [facility] Comment on above: Order Comment: Speci men Type: BLOOD SPECIMENOrdering Facility: [facility] Address: [address] [place] [address] Performed By: #### 5 7021-8 ####[facility] LABCLIA [id number] [place] [address] [place] RBC (Bld) [#/Vol] 4.54 10*6/uL Normal 3.90-5.20 [facility] Comment on above: Order Comment: Speci men Type: BLOOD SPECIMENOrdering Facility: [facility] Address: [address] [place] [address] Performed By: #### 5 7021-8 ####[facility] LABCLIA [id number] [place] [address] [place] WBC (Bld) [#/Vol] 8.57 10*3/uL Normal 3.70-11.00 [facility] Comment on above: Order Comment: Speci men Type: BLOOD SPECIMENOrdering Facility: [facility] Address: [address] [place] [address] Performed By: #### 5 7021-8 ####[facility] LABIA [id number] [address] [place] CNOVon 10-09-2024 CNOV Office Visit (NEMSLR ) BRYAN CRUZ ([id number]) 1970 F [place] Date Time Provider Department 10/09/24 8:45 AM RAYMOND KEMP NEMSLR During your visit today, we recorded the following information about you: Pulse Blood pressure 61/minute 172/79 Raymond Kemp APRN.MAID HOUSEKEEPER 10/09/2024 12:02 PM [facility] FOLLOWUP/ESTABLISHED PATIENT VISIT PRINCIPAL NEUROLOGIC DIAGNOSIS: Multiple [...] disease modifying therapy and MS symptom management Usual treating team: Stephan/ Pedro The patient is unaccompanied. The patient was last seen 08/21/24, currently taking Zeposia. Since the patient's last visit the patient reports overall feeling stable. Issues with current therapy: Tolerating medication without side effects. INTERVAL HISTORY: Multiple ER visits since last visit - 09/23/24 muscle pain and cramping, acute on chronic - 09/13/24 URI symptoms x 7 days - 08/29/24 nausea/vomiting/diarr hea, headache Has continued to have a lot of lower back pain with radiating pain down her R leg, muscle spasms Normally toradol would work but now is not providing relief Working towards holistic approaches Has a membership to the [facility] and now is getting set up with her sober living house with trips which will transport her Looking forward to doing aqua therapy, strengthening Admits to 2 falls since last visit - legs gave out while standing up. Was having a lot of back pain that day Vision stable and sees [facility] locally Wears glasses Wants to establish with [facility] Continues to live with her significant other, Alisas, who is in sober living with her Patient reports she continues to be sober -- 6 months on 10/12/24 REVIEW OF SYSTEMS: Mood: PHQ9 responses reviewed and appear below Bladder: frequency and urgency Bowel: constipation, stable Pain: back pain continues Fatigue: significant Memory/Concentration: stable Neuro-QoL Functions (higher=better functioning) Flowsheet Row [facility] from 08/21/2024 in [facility] Office Visit from 07/19/2023 in [facility] Office Visit from 04/18/2023 in [facility] Upper Extremity Domain T Score 39 44.53 42.12 Lower Extremity Domain T Score 39 40.35 34.04 Cognitive Function Domain T Score 40 48.64 46.37 Positive Affect Well Being T Score -- -- -- Ability To Participate In Social Roles T Score 42 44.12 33.38 Satisfaction With Social Roles T Score 44 41.34 36.98 Neuro-QoL Symptoms (higher=worse symptoms) Flowsheet [facility] Health from 08/21/2024 in [facility] Office Visit from 07/19/2023 in [facility] Office Visit from 04/18/2023 in [facility] Sleep Domain T Score -- 57.7 61.86 Fatigue Domain T Score 52 56.21 58.38 Anxiety Domain T Score 56 48.72 48.87 Depression Domain T Score 57 46.25 47.97 Stigma Domain T Score -- 36.56 51.87 Emotional Behavior Dyscontrol T Score -- -- -- PAST HISTORY has a past medical history of Cocaine use, Depression, Fibroid, Multiple sclerosis ([facility]), Smoking, and Stroke (cerebrum) ([facility]). has a current medication list which includes the following prescription(s): diclofenac (ec), ondansetron orally disintegrating, pregabalin, atorvastatin, lidocaine, duloxetine, ketorolac, ergocalciferol (vitamin d2), zeposia, hydrocortisone, baclofen, famotidine, acetaminophen, iv contrast, iv contrast, mirabegron, tizanidine, polyethylene glycol 3350, and ergocalciferol (vitamin d2). EXAM: BP 172/79 Pulse 61 LMP 04/28/2020 (Within Years) MSPT Results Flowsheet [facility] Office Visit from 07/19/2023 in [facility] Office Visit from 04/18/2023 in [facility] Office Visit from 10/27/2021 in [facility] Processing Speed Total Number Correct 45 46 40 Processing Speed Z score 0.42 0.51 -0.19 Dominant hand -- -- -- MDT Left Hand Time 24.54 27.5 -- MDT Right Hand Time 28.79 23.69 -- Walking Speed Test (25 feet) -- 8.56 -- Memory Z Score -- -- -- General Appearance: well appearing, in no acute distress Mental status evaluation during the interview and examination showed normal level of consciousness, orientation, language, memory, praxis, and highe (more content not included)... Normal [facility] Comprehensive metabolic 2000 panelon 10-09-2024 Albumin [Mass/Vol] 4.1 g/dL 3.9 - 4.9 g/dL [facility] ALP [Catalytic activity/Vol] 113 U/L 34 - 123 U/L [facility] ALT [Catalytic activity/Vol] 18 U/L 7 - 38 U/L [facility] Anion gap [Moles/Vol] 8 mmol/L 8 - 15 mmol/L [facility] AST [Catalytic activity/Vol] 13 U/L 13 - 35 U/L [facility] Bilirubin [Mass/Vol] 0.4 mg/dL 0.2 - 1 .3 mg/dL [facility] Calcium [Mass/Vol] 9.4 mg/dL 8.5 - 10. 2 mg/dL [facility] Chloride [Moles/Vol] 102 mmol/L 98 - 10 7 mmol/L [facility] CO2 [Moles/Vol] 31 mmol/L High 22 - 30 mmol/L [facility] Creatinine [Mass/Vol] 0.6 mg/dL 0.58 - 0.96 mg/dL [facility] GFR/1.73 sq M.predicted among non-blacks MDRD (S/P/Bld) [Vol rate/Area] 107 mL/min/{1.73_m2} - PINF [facility] Comment on above: Estimated Glomerular Filtration Rate (eGFR) is calculated using the 2020 CKD-EPI creatinine equation. This equation utilizes serum creatinine, sex, and age as parameters. The creatinine assay has traceable calibration to isotope dilution-mass spectrometry. Refer to KDIGO guidelines for clinical interpretation. In patients with unstable renal function, e.g. those with acute kidney injury, the eGFR may not accurately reflect actual GFR. Glucose [Mass/Vol] 130 mg/dL High 74 - 99 mg/dL [facility] Comment on above: The [place] Diabete s Association (ADA) provides guidance for cutoff values [...] Standards of Medical Care in Diabetes 2016, [place] Diabetes Association. Diabetes Care. 2016.39(Suppl 1). Interpretation and review of laboratory results Abnormal [facility] Potassium [Moles/Vol] 4.3 mmol/L 3.7 - 5.1 mmol/L [facility] Protein [Mass/Vol] 6.4 g/dL 6.3 - 8.0 g/dL [facility] Sodium [Moles/Vol] 141 mmol/L 136 - 144 mmol/L [facility] Urea nitrogen [Mass/Vol] 10 mg/dL 7 - 21 mg/dL [facility] Albumin [Mass/Vol] 4.1 g/dL Normal 3.9-4.9 [facility] Comment on above: Order Comment: Speci men Type: BLOOD SPECIMENOrdering Facility: [facility] Address: [address] [place] [address] Performed By: #### 2 4323-8 ####[facility] LABCLIA [id number] [place] [address] [place]#### 2132-9 ####[facility] LABCLIA [id number] [place] [address] [place] ALP [Catalytic activity/Vol] 113 U/L Normal 34-123 [facility] Comment on above: Order Comment: Speci men Type: BLOOD SPECIMENOrdering Facility: [facility] Address: [address] [place] [address] Performed By: #### 2 4323-8 ####[facility] LABCLIA [id number] [place] [address] [place]#### 2132-9 ####[facility] LABCLIA [id number] [place] [id number] [place] ALT [Catalytic activity/Vol] 18 U/L Normal 7-38 [facility] Comment on above: Order Comment: Speci men Type: BLOOD SPECIMENOrdering Facility: [facility] Address: [address] [place] [id number] Performed By: #### 2 4323-8 ####[facility] LABCLIA [id number] [place] [address] [place]#### 2132-9 ####[facility] LABCLIA [id number] [address] [address] [place] Anion gap [Moles/Vol] 8 mmol/L Normal 8-15 [facility] Comment on above: Order Comment: Speci men Type: BLOOD SPECIMENOrdering Facility: [facility] Address: [address] [place] [address] Performed By: #### 2 4323-8 ####[facility] LABCLIA [id number] [place] [address] [place]#### 2132-9 ####[facility] LABCLIA [id number] [place] [id number] [place] AST [Catalytic activity/Vol] 13 U/L Normal 13-35 [facility] Comment on above: Order Comment: Speci men Type: BLOOD SPECIMENOrdering Facility: [facility] Address: [address] [place] [address] Performed By: #### 2 4323-8 ####[facility] LABCLIA [id number] [place] [address] [place]#### 2132-9 ####[facility] LABCLIA [id number] [address] [address] [place] Bilirubin [Mass/Vol] 0.4 mg/dL Normal 0.2-1.3 [facility] Comment on above: Order Comment: Speci men Type: BLOOD SPECIMENOrdering Facility: [facility] Address: [address] [place], [place] [address] Performed By: #### 2 4323-8 ####[facility] LABCLIA [id number] [place] [address] [place]#### 2132-9 ####[facility] LABCLIA [id number] [address] [address] [place] Calcium [Mass/Vol] 9.4 mg/dL Normal 8.5-10.2 [facility] Comment on above: Order Comment: Speci men Type: BLOOD SPECIMENOrdering Facility: [facility] Address: [address] [place] [address] Performed By: #### 2 4323-8 ####[facility] LABCLIA [id number] [place] [address] [place]#### 2132-9 ####[facility] LABCLIA [id number] [place] [address] [place] Chloride [Moles/Vol] 102 mmol/L Normal 98-107 [facility] Comment on above: Order Comment: Speci men Type: BLOOD SPECIMENOrdering Facility: [facility] Address: [address] [place] [id number] Performed By: #### 2 4323-8 ####[facility] LABCLIA [id number] [place] [address] [place]#### 2132-9 ####[facility] LABCLIA [id number] [place] [id number] [place] CO2 [Moles/Vol] 31 mmol/L High 22-30 [facility] Comment on above: Order Comment: Speci men Type: BLOOD SPECIMENOrdering Facility: [facility] Address: [address] [place] [id number] Performed By: #### 2 4323-8 ####[facility] LABCLIA [id number] [place] [address] [place]#### 2132-9 ####[facility] LABCLIA [id number] [place] [address] [place] Creatinine [Mass/Vol] 0.60 mg/dL Normal 0.58-0.96 [facility] Comment on above: Order Comment: Specamy lemus Type: BLOOD SPECIMENOrdering Facility: [facility] Address: [address] [place] [address] Performed By: #### 2 4323-8 ####[facility] LABCLIA [id number] [place] [address] [place]#### 2132-9 ####[facility] LABCLIA [id number] [address] [place] Creatinine and Glomerular filtration rate.predicted panel (S/P/Bld) 107 mL/min/1.73m??? Normal >=60 [facility] Comment on above: Order Comment: Kelly lemus Type: BLOOD SPECIMENOrdering Facility: [facility] Address: [address] [place] [address] Result Comment: Adrienne mated Glomerular Filtration Rate [...] reflect actual GFR. Performed By: #### 2 4323-8 ####[facility] LABCLIA [id number] [place] [address] [place]#### 2132-9 ####[facility] LABCLIA [id number] [place] [address] [place] Glucose [Mass/Vol] 130 mg/dL High 74-99 [facility] Comment on above: Order Comment: Vinodi mariah Type: BLOOD SPECIMENOrdering Facility: [facility] Address: [address] [place] [address] Result Comment: The [place] Diabetes Association (ADA) provides guidance for cutoff [...] Standards of Medical Care in Diabetes 2016, [place] Diabetes Association. Diabetes Care. 2016.39(Suppl 1). Performed By: #### 2 4323-8 ####[facility] LABCLIA [id number] [place] [address] [place]#### 2132-9 ####[facility] LABCLIA [id number] [place] [address] [place] Potassium [Moles/Vol] 4.3 mmol/L Normal 3.7-5.1 [facility] Comment on above: Order Comment: Speci men Type: BLOOD SPECIMENOrdering Facility: [facility] Address: [address] [place] [address] Performed By: #### 2 4323-8 ####[facility] LABCLIA [id number] [place] [address] [place]#### 2132-9 ####[facility] LABCLIA [id number] [place] [address] [place] Protein [Mass/Vol] 6.4 g/dL Normal 6.3-8.0 [facility] Comment on above: Order Comment: Speci men Type: BLOOD SPECIMENOrdering Facility: [facility] Address: [address] [place] [address] Performed By: #### 2 4323-8 ####[facility] LABCLIA [id number] [place] [address] [place]#### 2132-9 ####[facility] LABCLIA [id number] [place] [address] [place] Sodium [Moles/Vol] 141 mmol/L Normal 136-144 [facility] Comment on above: Order Comment: Speci men Type: BLOOD SPECIMENOrdering Facility: [facility] Address: [address] [place] [address] Performed By: #### 2 4323-8 ####[facility] LABCLIA [id number] [place] [address] [place]#### 2132-9 ####[facility] LABCLIA [id number] [place] [address] [place] Urea nitrogen [Mass/Vol] 10 mg/dL Normal 7-21 [facility] Comment on above: Order Comment: Speci men Type: BLOOD SPECIMENOrdering Facility: [facility] Address: [address] [place] [address] Performed By: #### 2 4323-8 ####[facility] LABCLIA [id number] [place] [address] [place]#### 2132-9 ####[facility] LABCLIA [id number] [facility] [address] [address] [place] HbA1c (Bld)on 10-09-2024 Average glucose Estimated from glycated hemoglobin (Bld) [Mass/Vol] 123 mg/dL [facility] Comment on above: eAG: (Estimated aver age glucose) is a calculated value from HgbA1c and is medical claims representative of the average blood glucose level in the last 2-3 month period. HbA1c (Bld) [Mass fraction] 5.9 % High 4.3 - 5.6 % [facility] Comment on above: Dutch Diabetes As sociation guidelines indicate that patients with HgbA1c in the range 5.7-6.4% are at increased risk for development of diabetes, and intervention by lifestyle modification may be beneficial. HgbA1c greater or equal to 6.5% is considered diagnostic of diabetes. Interpretation and review of laboratory results Abnormal [facility] Average glucose Estimated from glycated hemoglobin (Bld) [Mass/Vol] 123 mg/dL Normal [facility] Comment on above: Order Comment: Kelly lemus Type: BLOOD SPECIMENOrdering Facility: [facility] Address: [address] [place] [address] Result Comment: eAG: (Estimated average glucose) is a calculated value from HgbA1c and is medical claims representative of the average blood glucose level in the last 2-3 month period. Performed By: #### 5 5454-3 ####[facility] LABCLIA [id number] [place] [address] [place] HbA1c (Bld) [Mass fraction] 5.9 % High 4.3-5.6 [facility] Comment on above: Order Comment: Kelly lemus Type: BLOOD SPECIMENOrdering Facility: [facility] Address: [address] [place] [address] Result Comment: Amer [place] Diabetes Association guidelines indicate that patients with HgbA1c in the range 5.7-6.4% are at increased risk for development of diabetes, and intervention by lifestyle modification may be beneficial. HgbA1c greater or equal to 6.5% is considered diagnostic of diabetes. Performed By: #### 5 5454-3 ####[facility] LABIA [id number] [place] [address] [place] Vit B12 [facility]25 Cobalamin (Vitamin B12) [Mass/Vol] 279 pg/mL Normal 232-1245 [facility] Comment on above: Order Comment: Kelly lemus Type: BLOOD SPECIMENOrdering Facility: [facility] Address: [address] [place] [address] Performed By: #### 2 4323-8 ####[facility] LABCLIA [id number] [place] [address] [place]#### 2132-9 ####[facility] LABCLIA [id number] [place] [address] [place] CNPAiyana 09-26-2024 CNPN Telephone (NIQ) BRYAN CRUZ ([id number]) 1970 F [employer] Date Time Provider Department 09/26/24 RAYMOND KEMP During your visit today, we recorded the following information about you: Melanie Ferro 09/26/2024 10:03 AM Signed Bryan is calling Raymond Kemp APRN.CNP today to request phone call. Pt states she was recently admitted and would like to talk about her symptoms she had along with possible school note. Please advise Patient has been identified by name and birthdate. Duration of symptoms: N/A Person calling: self Call patient at: at home [phone] (home) [phone] (cell) Was an appointment scheduled: No Closing statement: Results or non-symptom based questions: Thank you for calling [facility], your call will be returned within the next business day. Iona Foley RN 09/29/2024 4:46 PM Signed RN spoke with patient, verified by name and . Patient advised she has had two recent ER visits (RN unable to see on care everywhere). She has had worsening MS symptoms and falls. RN offered a visit, patient would like in person at [place] location. RN assisted in holding an in person appointment with Raymond Kemp APRN.CNP on 10/09 at 8:45AM in [place]. Patient verbalized understanding. RN will forward to scheduling. SARAH Ribeiro Allergies As of Date: 09/26/2024 Noted Allergy Reaction NSAIDS (NON-STEROIDAL ANTI-INFLAM* 0 4 - Hives TRAMADOL 12/23/2019 4 - Hives Date Reviewed: 08/21/2024 Reviewed by: Raymond Kemp APRN.CNP - Fully Assessed Reason for Visit: Patient Update [1234] Patient Question [3257] Prescriptions as of 10/14/2024 - cyanocobalamin (VITAMIN B-12) 1,000 mcg tab Take 1 tablet by mouth once daily. - mirabegron (MYRBETRIQ) 50 mg Tb24 TAKE 25 mg (half tablet) by mouth daily - tiZANidine (ZANAFLEX) 2 mg tablet Take 1 tablet by mouth two times a day. - polyethylene glycol 3350 (MIRALAX) 17 gram/dose powder Take 17 g by mouth once daily. Dissolve dose in 4 - 8 ounces of liquid and take as directed. - diclofenac, EC, (VOLTAREN) 75 mg EC tablet Take 75 mg by mouth as needed. - ondansetron orally disintegrating (ZOFRAN ODT) 4 mg disintegrating tablet Take 4 mg by mouth as needed. - pregabalin (LYRICA) 300 mg capsule Take 1 capsule by mouth two times a day for 30 days. - atorvastatin (LIPITOR) 20 mg tablet Take 1 tablet by mouth once daily. - ergocalciferol 50,000 unit capsule (VITAMIN D2, DRISDOL) Take 1 capsule by mouth one time a week. - lidocaine (LIDODERM) 5 % Apply 1 [...] TIMES A DAY FOR 7 DAYS. - baclofen 20 mg tablet Take 1 [...] for pain. Problem List As Of Date 09/26/2024 Noted Resolved Morbid obesity with BMI of 40.0-44.9, adult (HC*02/17/2020 Multiple sclerosis (HCC) [G35] 03/30/2020 Suicidal ideation [R45.851] 05/08/2022 07/19/2023 Major depressive disorder [F32.9] 05/08/2022 Leukocytosis [D72.829] 05/08/2022 07/19/2023 Hyperlipidemia [E78.5] 05/08/2022 History of cocaine abuse (HCC) [F14.11] 05/08/2022 Current every day smoker [F17.200] 05/08/2022 Stroke (cerebrum) (HCC) [I63.9] 08/17/2022 Vitamin D deficiency [E55.9] 07/19/2023 Diagnosed: 07/19/2023 Encounter Status:Closed by MELANIE FERRO on 10/14/24 Normal [facility] CNCOon 09-04-2024 CNCO Letter Text Normal [facility] CNPNon 09-04-2024 CNPN Telephone (NIQ) BRYAN CRUZ ([id number]) 1970 F [place] Date Time Provider Department 09/04/24 RAYMOND KEMP During your visit today, we recorded the following information about you: Morena Van 09/04/2024 1:33 PM Signed Bryan is calling Raymond Kemp APRN.SHAYLA today with concern regarding Letter. She is asking for a letter that states she needs a handicap accessible apartment. Please fax to [phone] or [phone]. Please advise. Patient has been identified by name and birthdate. Person calling: self Call patient at: on cell [phone] (home) [phone] (cell) Was an appointment scheduled: No Closing statement: Results or non-symptom based questions: Thank you for calling [facility], your call will be returned within the next business day. Raymond Miguel APRN.MAID HOUSEKEEPER 09/05/2024 8:39 AM Signed Letter written and printed to be faxed to below Raymond Kemp APRN.SHAYLA September 05, 2024 8:39 AM Allergies As of Date: 09/04/2024 Noted Allergy Reaction NSAIDS (NON-STEROIDAL ANTI-INFLAM* 0 4 - Hives TRAMADOL 12/23/2019 4 - Hives Date Reviewed: 08/21/2024 Reviewed by: Raymond Kemp APRN.SHAYLA - Fully Assessed Reason for Visit: Letter [...] Status:Closed by RAYMOND KEMP on 09/05/24 Normal [facility] Brain Enhancing Lesions None C [facility] Brain Interval Improvement None [facility] Brain New T2 Lesions None [facility] Brain Other Significant MRI Findings None. [facility] Brain Parenchymal Volume Loss None [facility] Brain T2 [place] of Disease Mild [facility] Radiology Study observation (narrative) Jason [facility] MR Brain WO and W contrast [...] by greater than or equal to 2mm). [employer] Supervisor: [employer] Transcribe Date/Time: Aug 01 2024 10:34A Dictated by : VIVIANA FORMAN MD This examination was interpreted and the report reviewed and electronically signed by: VIVIANA FORMAN MD on Aug 01 2024 10:51AM [facility] DIVISION OF RADIOLOGY * * *Final Report* * * DATE OF EXAM: Aug 01 2024 10:23AM [facility] 0295 - MRI BRAIN WO/W IVCON / [...] Improvement: None. New Enhancing Lesions: None T2 [place] of Disease: Mild. Parenchymal Volume Loss: None. Other Significant Findings/Site(s) of New T2 Lesion(s): None. DIVISION OF RADIOLOGY Provider, [facility] - 08/01/2024 * * *Final Report* * * DATE OF EXAM: Aug 01 2024 10:23AM [facility] 0295 - MRI BRAIN WO/W IVCON / [...] Improvement: None. New Enhancing Lesions: None T2 [place] of Disease: Mild. Parenchymal Volume Loss: None. [...] by greater than or equal to 2mm). [employer] Supervisor: PSCB Transcribe Date/Time: Aug 01 2024 10:34A Dictated by : VIVIANA FORMAN MD This examination was interpreted and the report reviewed and electronically signed by: VIVIANA FORMAN MD on Aug 01 2024 10:51AM [facility] Radiology Study observation (narrative) Jason fabian [facility] MR Brain WO and W contrast I VOrdered By: [facility] Provider on 1227-2024 [facility] MRI BRAIN WO/W IVCONon 08-01 MRI BRAIN WO/W IVCON * * *Final Report* * * DATE OF EXAM: Aug 01 2024 10:23AM [facility] 0295 - MRI BRAIN WO/W IVCON / [...] Improvement: None. New Enhancing Lesions: None T2 [place] of Disease: Mild. Parenchymal Volume Loss: None. [...] by greater than or equal to 2mm). [employer] Supervisor: MAXI Transcribe Date/Time: Aug 01 2024 10:34A Dictated by : VIVIANA FORMAN MD This examination was interpreted and the report reviewed and electronically signed by: VIVIANA FORMAN MD on Aug 01 2024 10:51AM EST [id number] N Normal [facility] Jose 07-15-2024 CNPN Telephone (WHQ) BRYAN CRUZ ([id number]) 1970 F [place] Date Time Provider Department 07/15/24 FREDA HERNANDEZ WHQ During your visit today, we recorded the following information about you: Eboni Benjamin 07/15/2024 12:48 PM Signed Naheed Gomez, Eboni Wiggins; P [facility] [place] Scheduling [place]; Freda Hernandez APRN.MAID HOUSEKEEPER Can we pls schedule an office hysteroscopy, polypectomy w me using rigid scope and Resectr. @Gile- can you pls FYI the pt and make sure she agrees. Thx C Eboni Benjamin 07/15/2024 12:48 PM Signed LVM to call office to schedule. Will need a [address] Gomez. Allergies As of Date: 07/15/2024 Noted Allergy Reaction NSAIDS (NON-STEROIDAL ANTI-INFLAM* 0 4 - Hives TRAMADOL 12/23/2019 4 - Hives Date Reviewed: 06/16/2024 Reviewed by: Freda Hernandez APRN.MAID HOUSEKEEPER - Fully Assessed Reason for Visit: Appointment [...] Hyperlipidemia [E78.5] 05/08/2022 History of cocaine abuse ([facility]) [F14.11] 05/08/2022 Current every day smoker [F17.200] 05/08/2022 Stroke (cerebrum) ([facility]LY [facility]) [I63.9] 08/17/2022 Vitamin D deficiency [E55.9] 07/19/2023 Diagnosed: 07/19/2023 Encounter Status:Closed by EBONI BENJAMIN on 07/15/24 Normal [facility] BASIC METABOLIC PANELon 12-0 Anion gap [Moles/Vol] 17 mmol/L Normal 10-20 [facility] Comment on above: Performed By: #### C R K #### [facility] [address] [place] [address], Calcium [Mass/Vol] 9.7 mg/dL Normal 8.6-10.3 [facility] Comment on above: Performed By: #### C R K #### [facility] [address] [place] [address], Chloride [Moles/Vol] 104 mmol/L Normal 98-107 [facility] Comment on above: Performed By: #### C R K #### [facility] [address] [place] [address], CO2 [Moles/Vol] 24 mmol/L Normal 21-31 [facility] Comment on above: Performed By: #### C R K #### S PATHOLOG[facility] LABORATORY [address] [place], [place], Creatinine [Mass/Vol] 0.72 mg/dL Normal 0.60-1.20 [facility] Comment on above: Performed By: #### C R K #### S [facility] LABORATORY [address] [place], [place], ESTIMATED GFR (CKD-EPI) 99 mL/min/1.73sqm Normal >=60 [facility] Comment on above: Result Comment: 2020 [...] Inclusion of Race in Diagnosing Kidney Disease. Dutch Journal of Kidney Diseases 2021;79(2):268-88.e1. 2. N Engl J Med 2020 Vol. 385 Issue 19 Pages 6269-0228 Performed By: #### C R K #### S [facility]ATORY [address] [place], [place], Glucose [Mass/Vol] 249 mg/dL High 74-109 [facility] Comment on above: Performed By: #### C R K #### S [facility] LABORATORY [address] [place], [place], Potassium [Moles/Vol] 4.5 mmol/L Normal 3.5-5.0 [facility] Comment on above: Performed By: #### C R K #### [facility] [address] [place], [place], Sodium [Moles/Vol] 140 mmol/L Normal 136-145 [facility] Comment on above: Performed By: #### C R K #### [facility] [address] [place], [place], Urea nitrogen [Mass/Vol] 22 mg/dL Normal 7-25 [facility] Comment on above: Performed By: #### C R K #### [facility] [address] [place], [address] Basic metabolic 2000 panelOr dered By: Linda Chua on 07-10-2024 Anion gap [Moles/Vol] 17 mmol/L 10 - 20 [facility] Calcium [Mass/Vol] 9.7 mg/dL 8.6 - 10. 3 mg/dL [facility] Chloride [Moles/Vol] 104 mmol/L 98 - 10 7 mmol/L [facility] CO2 [Moles/Vol] 24 mmol/L 21 - 31 mmol/L [facility] Creatinine [Mass/Vol] 0.72 mg/dL 0.60 - 1.20 mg/dL [facility] GFR/1.73 sq M.predicted CKD-EPI (S/P/Bld) [Vol rate/Area] 99 - PINF [facility] Comment on above: 2020 CKD EPI Equatio n using Creatinine without Race Comment: Estimated glomerular filtration rate (eGFR) is calculated without a race coefficient. Values should be interpreted in the context of the patient's full clinical presentation. Reference: 1. Jimmy C, Merlin M, Nancy DC, et al.. A Unifying Approach for GFR Estimation: Recommendations of the NKF-ASN Task Force on Reassessing the Inclusion of Race in Diagnosing Kidney Disease. Dutch Journal of Kidney Diseases 202;79(2):268-88.e1. 2. N Engl J Med 2020 Vol. 385 Issue 19 Pages 1899-1433 Glucose [Mass/Vol] 249 mg/dL High 74 - 109 mg/dL [facility] Interpretation and review of laboratory results [...] [Mass/Vol] 13.4 g/dL 12.0 - 15.0 g/dL [facility] Interpretation and review of laboratory results Abnormal [facility] MCH (RBC) [Entitic mass] 29.7 pg 26.0 - 34.0 pg [facility] MCHC (RBC) [Mass/Vol] 31.9 g/dL Low 32.0 - 35.9 g/dL [facility] MCV (RBC) [Entitic vol] 93 fL 80 - 100 fL [facility] Platelet mean volume (Bld) [Entitic vol] 8.6 fL 7.5 - 11.2 fL [facility] Platelets (Bld) [#/Vol] 344 10*3/uL 150 - 400 K/uL [facility] RBC (Bld) [#/Vol] 4.51 10*6/uL [facility] WBC (Bld) [#/Vol] 23.4 10*3/uL High 4.5 - 11.5 K/uL [facility] COMPLETE BLOOD COUNTon 07-10 Erythrocyte distribution width (RBC) [Ratio] 13.6 % Normal 11.5-14.5 [facility] Comment on above: Performed By: #### C BC #### S [facility] LABORAT[facility] [address] [place] [address], Hematocrit (Bld) [Volume fraction] 42.0 % Normal 36.0-46.0 [facility] Comment on above: Performed By: #### C BC #### S [facility] [address] [place] [address], Hemoglobin (Bld) [Mass/Vol] 13.4 g/dL Normal 12.0-15.0 [facility] Comment on above: Performed By: #### C BC #### S [facility] [address] [place] [address], MCH (RBC) [Entitic mass] 29.7 pg Normal 26.0-34.0 [facility] Comment on above: Performed By: #### C BC #### S [facility] LAB[facility]AT[facility] [address] [place] [address], MCHC (RBC) [Mass/Vol] 31.9 g/dL Low 32.0-35.9 [facility] Comment on above: Performed By: #### C BC #### [facility] [address] [place], [place], MCV (RBC) [Entitic vol] 93 fL Normal 80-100 T [facility] Comment on above: Performed By: #### C BC #### [facility] [address] [place], [place], Platelet mean volume (Bld) [Entitic vol] 8.6 fL Normal 7.5-11.2 [facility] Comment on above: Performed By: #### C BC #### [facility] [address] [place], [place], Platelets (Bld) [#/Vol] 344 10*3/uL Normal 150-400 [facility] Comment on above: Performed By: #### C BC #### [facility] [address] [place], [place], RBC (Bld) [#/Vol] 4.51 10*6/uL Normal 4.00-5.20 [facility] Comment on above: Performed By: #### C BC #### [facility] [address] [place], [place], WBC (Bld) [#/Vol] 23.4 10*3/uL High 4.5-11.5 [facility] Comment on above: Performed By: #### C BC #### [facility] [address] [place], [place], MAGNESIUMon 07-10-2024 Interpretation and review of laboratory results Normal [facility] Magnesium [Mass/Vol] 2 mg/dL 1.9 - 2 .7 mg/dL [facility] Magnesium [Mass/Vol] 2.0 mg/dL Normal 1.9-2.7 [facility] Comment on above: Performed By: #### C R K #### S [facility] LAB[facility]ORY [address] [place], [place], Progress Noteson 07-10-2024 [employer] Authentication Interface Message Text Pt home medications returned to her. Docusate, toradol, ozanimod returned to pt from pt's bin. Lyrica received from pharmacy, signed for by rn and returned to pt. Normal [facility] [employer] Authentication Interface Message Text Dr. Whatley notified of critical WBC value of 23.[address] Whatley read back critical results. No new orders at this time. Normal [facility] Assessment AND Plan Noteon 1 09-09-2023 [employer] Authentication Interface Message Text Cont lipitor 20mg daily Normal [facility] [employer] Authentication Interface Message Text Echocardiogram normal and reassuring Normal [facility] [employer] Authentication Interface Message Text Mild low levels, continue vitamin D replacement supplementation Normal [facility] [employer] Aut[employer] Interface Message Text Encourage cessation, offer nicotine replacement Normal [facility] [employer] Authentication Interface Message Text In remission Normal [facility] [employer] Authentication Interface Message Text Cont cymbalta. Normal [facility] [employer] Aut[employer] Interface Message Text F/u echocardiogram Normal [facility] [employer] Interface Message Text Continue zeposia Continue IV solumedrol 1g every 18 hours x 3 doses. F/u MR head and MR orbit F/u neuro recs, ophthalmology asking to see after imaging. Will coordinate plan with ophtho based on recommendations. Continue toradol 10mg as home med for pain control. Continue tylenol 500mg q6h and lyrica 300mg BID Restart lidocaine patch after MRI. Normal [facility] [employer] Authentication Interface Message Text Continue lipitor 20mg Normal [facility] [employer] Interface Message Text Encourage lifestyle changes, pt stopped cocaine use in remission. Encourage tobacco cessation Normal [facility] Progress Noteson 07-09-2024 [employer] Authentication Interface Message Text NEUROLOGY CONSULT FOLLOWUP [...] N (more content not included)... Normal [facility] Student Noteon 07-09-2024 [employer] Authentication Interface Message Text NEUROLOGY CONSULT FOLLOWUP [...] N (more content not included)... Normal [facility] Assessment AND Plan Noteon 1 09-08-2023 [employer] Authentication Interface Message Text Cont cymbalta. Pt does not take zoloft. Normal [facility] [employer] Authentication Interface Message Text F/u echo Normal [facility] [employer] Authentication Interface Message Text F/u echocardiogram Normal [facility] [employer] Aut[employer] Interface Message Text Obtain echocardiogram given findings on CTA. F/u NT-pro BNP. Normal [facility] [employer] Authentication Interface Message Text Continue lipitor 20mg Normal [facility] [employer] Aut[employer] Interface Message Text Mild low levels, continue vitamin D replacement supplementation Normal [facility] [employer] Aut[employer] Interface Message Text Encourage cessation, offer nicotine replacement Normal [facility] [employer] Authentication Interface Message Text Encourage lifestyle changes, pt stopped cocaine use in remission. Encourage tobacco cessation Normal [facility] [employer] Authentication Interface Message Text Continue zeposia at discharge, pt ask facility to bring in for dispense. Neurology to evaluate today, ophthalmology asking to see after imaging. Will coordinate plan with ophtho based on recommendations. Normal [facility] [employer] Authentication Interface Message Text Cont lipitor 20mg daily Normal [facility] [employer] Authentication Interface Message Text In remission Normal [facility] BASIC METABOLIC PANELon 12-0 Anion gap [Moles/Vol] 13 mmol/L Normal 10-20 [facility] Comment on above: Performed By: #### C H8, MG, HEPATIC, TSH HS ####[facility] [id number] [place], [place], Calcium [Mass/Vol] 8.8 mg/dL Normal 8.6-10.3 [facility] Comment on above: Performed By: #### C H8, MG, HEPATIC, TSH HS ####[facility] [id number] [place], [place], Chloride [Moles/Vol] 104 mmol/L Normal 98-107 [facility] Comment on above: Performed By: #### C H8, MG, HEPATIC, TSH HS ####[facility] [id number] [place], [place], CO2 [Moles/Vol] 28 mmol/L Normal 21-31 [facility] Comment on above: Performed By: #### C H8, MG, HEPATIC, TSH HS ####[facility] [id number] [place], [place], Creatinine [Mass/Vol] 0.58 mg/dL Low 0.60-1.20 [facility] Comment on above: Performed By: #### C H8, MG, HEPATIC, TSH HS ####[facility] [id number] [place], [place], ESTIMATED GFR (CKD-EPI) 107 mL/min/1.73sqm Normal >=60 [facility] Comment on above: Result Comment: 2020 [...] Inclusion of Race in Diagnosing Kidney Disease. Dutch Journal of Kidney Diseases 2021;79(2):268-88.e1. 2. N Engl J Med 2020 Vol. 385 Issue 19 Pages 9681-0523 Performed By: #### C H8, MG, HEPATIC, TSH HS ####[facility] [id number] [place], [place], Glucose [Mass/Vol] 108 mg/dL Normal 74-109 [facility] Comment on above: Performed By: #### C H8, MG, HEPATIC, TSH HS ####[facility] [id number] [place], [place], Potassium [Moles/Vol] 4.1 mmol/L Normal 3.5-5.0 [facility] Comment on above: Performed By: #### C H8, MG, HEPATIC, TSH HS ####[facility] [id number] [place], [place], Sodium [Moles/Vol] 141 mmol/L Normal 136-145 [facility] Comment on above: Performed By: #### C H8, MG, HEPATIC, TSH HS ####[facility] [id number] [place], [place], Urea nitrogen [Mass/Vol] 17 mg/dL Normal 7-25 [facility] Comment on above: Performed By: #### C H8, MG, HEPATIC, TSH HS ####[facility] [id number] [place], [address] Basic metabolic 2000 panelOr dered By: Herb Mcpherson on 07-08-2024 Anion gap [Moles/Vol] 13 mmol/L 10 - 20 [facility] Calcium [Mass/Vol] 8.8 mg/dL 8.6 - 10. 3 mg/dL [facility] Chloride [Moles/Vol] 104 mmol/L 98 - 10 7 mmol/L [facility] CO2 [Moles/Vol] 28 mmol/L 21 - 31 mmol/L [facility] Creatinine [Mass/Vol] 0.58 mg/dL Low 0.60 - 1.20 mg/dL [facility] GFR/1.73 sq M.predicted CKD-EPI (S/P/Bld) [Vol rate/Area] 107 - PINF [facility] Comment on above: 2020 CKD EPI Equatio n using Creatinine without Race Comment: Estimated glomerular filtration rate (eGFR) is calculated without a race coefficient. Values should be interpreted in the context of the patient's full clinical presentation. Reference: 1. Jimmy C, Balexis M, Nancy DC, et al.. A Unifying Approach for GFR Estimation: Recommendations of the NKF-ASN Task Force on Reassessing the Inclusion of Race in Diagnosing Kidney Disease. Dutch Journal of Kidney Diseases 2021;79(2):268-88.e1. 2. N Engl J Med 2020 Vol. 385 Issue 19 Pages 2192-2354 Glucose [Mass/Vol] 108 mg/dL 74 - 109 [...] fraction] 41.1 % 36.0 - 46.0 % [facility] Hemoglobin (Bld) [Mass/Vol] 13.5 g/dL 12.0 - 15.0 g/dL [facility] Interpretation and review of laboratory results Normal [facility] MCH (RBC) [Entitic mass] 30.3 pg 26.0 - 34.0 pg [facility] MCHC (RBC) [Mass/Vol] 32.8 g/dL 32.0 - 35.9 g/dL [facility] MCV (RBC) [Entitic vol] 92 fL 80 - 100 fL [facility] Platelet mean volume (Bld) [Entitic vol] 8.5 fL 7.5 - 11.2 fL [facility] Platelets (Bld) [#/Vol] 333 10*3/uL 150 - 400 K/uL [facility] RBC (Bld) [#/Vol] 4.45 10*6/uL [facility] WBC (Bld) [#/Vol] 11.1 10*3/uL 4.5 - 11.5 K/uL [facility] COMPLETE BLOOD COUNTon 07-08 Erythrocyte distribution width (RBC) [Ratio] 13.4 % Normal 11.5-14.5 [facility] Comment on above: Performed By: #### C R K #### [facility] [address] [place] [address], Hematocrit (Bld) [Volume fraction] 41.1 % Normal 36.0-46.0 [facility] Comment on above: Performed By: #### C R K #### [facility] [address] [place] [address], Hemoglobin (Bld) [Mass/Vol] 13.5 g/dL Normal 12.0-15.0 [facility] Comment on above: Performed By: #### C R K #### [facility] [address] [place] [address], MCH (RBC) [Entitic mass] 30.3 pg Normal 26.0-34.0 [facility] Comment on above: Performed By: #### C R K #### [facility] [address] [place] [address], MCHC (RBC) [Mass/Vol] 32.8 g/dL Normal 32.0-35.9 [facility] Comment on above: Performed By: #### C R K #### [facility] [address] [place], [place], MCV (RBC) [Entitic vol] 92 fL Normal 80-100 T [facility] Comment on above: Performed By: #### C R K #### S PATHOLOGY LABORATORY [address] [place], [place], Platelet mean volume (Bld) [Entitic vol] 8.5 fL Normal 7.5-11.2 [facility] Comment on above: Performed By: #### Isaac De La Garza K #### S PATHOLOGY LABORATORY [address] [place] [address], Platelets (Bld) [#/Vol] 333 10*3/uL Normal 150-400 [facility] Comment on above: Performed By: #### Isaac De La Garza K #### [facility] [address] [place] [address], RBC (Bld) [#/Vol] 4.45 10*6/uL Normal 4.00-5.20 [facility] Comment on above: Performed By: #### Isaac De La Garza K #### [facility] [address] [place], [place], WBC (Bld) [#/Vol] 11.1 10*3/uL Normal 4.5-11.5 [facility] Comment on above: Performed By: #### Isaac De La Garza K #### [facility] [address] [place] [address], Consultson 07-08-2024 [employer] Authentication Interface Message Text NEUROLOGY INITIAL CONSULT NOTE Reason for Consult: MS Flare, dyspnea, fatigue, blurry vision, Consulted by: Yousif Gillette MD HPI: Byran Cruz is a 53 year old female [...] Yousif Gillette MD, 2 Patch at 07/07/24 6725 Exam Neurologic: Cognition: Sedation: none Level of [...] face (more content not included)... Normal [facility] [employer] Authentication Interface Message Text Normal [facility] HEPATIC FUNCTION PANELon Albumin [Mass/Vol] 3.7 [...] Albumin [Mass/Vol] 3.7 g/dL Normal 3.5-5.7 [facility] Comment on above: Performed By: #### C H8, MG, HEPATIC, TSH HS ####S PATHOLOGY [id number] [place], [place], ALK 106 IU/L High 34-104 [facility] Comment on above: Performed By: #### C H8, MG, HEPATIC, TSH HS ####S PATHOLOGY [id number] [place], [place], ALT [Catalytic activity/Vol] 12 U/L Normal 7-52 [facility] Comment on above: Performed By: #### C H8, MG, HEPATIC, TSH HS ####S PATHOLOGY [id number] [place], AST [Catalytic activity/Vol] 11 U/L Low 13-39 [facility] Comment on above: Performed By: #### C H8, MG, HEPATIC, TSH HS ####[facility] [id number] [place], Bilirubin [Mass/Vol] 0.5 mg/dL Normal 0.3-1.0 [facility] Comment on above: Performed By: #### C H8, MG, HEPATIC, TSH HS ####[facility] [id number] [place], Bilirubin.direct [Mass/Vol] 0.10 mg/dL Normal 0.03-0.18 [facility] Comment on above: Performed By: #### C H8, MG, HEPATIC, TSH HS ####[facility] [id number] [place], Protein [Mass/Vol] 6.2 g/dL Normal 6.0-8.3 [facility] Comment on above: Performed By: #### C H8, MG, HEPATIC, TSH HS ####[facility] [id number] [place], MAGNESIUMon 07-08-2024 Magnesium [Mass/Vol] 1.7 mg/dL Low 1.9 - 2 .7 mg/dL [facility] Magnesium [Mass/Vol] 1.7 mg/dL Low 1.9-2.7 [facility] Comment on above: Performed By: #### C H8, MG, HEPATIC, TSH HS ####[facility] [id number] [place], [place], No Panel Informationon 07-08 Interpretation and review of laboratory results Abnormal [facility] Procedureson 07-08-2024 [employer] Authentication Interface Message Text Transthoracic Echocardiographic Report Name: NANCY MENDEZ Physician: : [id number] Referring NAIN DODD MD Physician: Age: 53 [employer]sembler [employer] Furniture: CARLENE Gauthier Exam Date: 07/08/2024 Fellow: 02:02 [...] Doctor's order(s) verified. Patient's preferred language is Solomon Islander . Supine BP: 125/77 mmHg Patient Status: [...] 07/08/2024 03:38 PM Invalid Interpretation Code [facility] Student Noteon 07-08-2024 [employer] Authentication Interface Message Text NEUROLOGY INITIAL CONSULT [...] face (more content not included)... Normal [facility] TSHon 07-08-2024 Interpretation and review of laboratory results Normal [facility] TSH Qn 1.463 m[IU]/L [facility] Comment on above: Referance range for women as applicable: First Trimester: 0. 050 to 3.700 uIU/mL Second Trimester: 0. 310 to 4.350 uIU/mL Third Trimester: 0. 410 to 5.180 uIU/mL [facility] TSH 1.463 uIU/mL Normal 0.450-5.330 [facility] Comment on above: Result Comment: Refe jia range for women as applicable: First Trimester: 0. 050 to 3.700 uIU/mL Second Trimester: 0. 310 to 4.350 uIU/mL Third Trimester: 0. 410 to 5.180 uIU/mL Performed By: #### C H8, MG, HEPATIC, TSH HS ####[facility] [id number] [place] [address], VITAMIN D, 25-HYDROXYon - 25-hydroxyvitamin D IA [Mass/Vol] 20 ng/mL Low 30 - 100 ng/mL [facility] Interpretation and review of laboratory results Abnormal [facility] Deficient : <20.0 ng/mL Insufficient : 20.0-29.9 ng/mL Sufficient : 30.0 - 100.0 ng/mL Potential Toxicity : >100.0 ng/mL [facility] VITD25 20.0 ng/mL Low 30-100 [facility] Comment on above: Order Comment: Defic ient : <20.0 ng/mLInsufficient : 20.0-29.9 ng/mLSufficient : 30.0 - 100.0 ng/mLPotential Toxicity : >100.0 ng/mL Performed By: #### C R K #### [facility] [address] [place] [address], Assessment AND Plan Noteon 1 09-07-2023 [employer] Authentication Interface Message Text Continue zeposia at discharge, pt ask facility to bring in for dispense. Will review presentation with neurology as well as indication for repeat imaging. Given stable MR C spine findings within 2 months Consider ophthalmology eval given blurred vision. Normal The [facility] [employer] Authentication Interface Message Text Continue lipitor 20mg Normal [facility] [employer] Authentication Interface Message Text Check levels, offer vitamin D replacement supplementation Normal [facility] [employer] Authentication Interface Message Text Encourage cessation, offer nicotine replacement Normal [facility] [employer] Authentication Interface Message Text In remission Normal [facility] [employer] Authentication Interface Message Text Obtain echocardiogram given findings on CTA. F/u NT-pro BNP. Normal [facility] [employer] Authentication Interface Message Text Encourage lifestyle changes, pt stopped cocaine use in remission. Encourage tobacco cessation Normal The [facility] BASIC METABOLIC PANELon Anion gap [Moles/Vol] 13 mmol/L Normal 10-20 [facility] Comment on above: Performed By: #### C H8, MG #### [facility] [address] [place], [place], Calcium [Mass/Vol] 8.8 mg/dL Normal 8.6-10.3 [facility] Comment on above: Performed By: #### C H8, MG #### [facility] [address] [place], [place], Chloride [Moles/Vol] 104 mmol/L Normal 98-107 [facility] Comment on above: Performed By: #### C H8, MG #### [facility] [address] [place], [place], CO2 [Moles/Vol] 30 mmol/L Normal 21-31 [facility] Comment on above: Performed By: #### C H8, MG #### [facility] [address] [place], [place], Creatinine [Mass/Vol] 0.66 mg/dL Normal 0.60-1.20 [facility] Comment on above: Result Comment: Clark sly icteric; may falsely decrease creatinine Performed By: #### C H8, MG #### [facility] [address] [place], [place], ESTIMATED GFR (CKD-EPI) 104 mL/min/1.73sqm Normal >=60 [facility] Comment on above: Result Comment: 2020 [...] Inclusion of Race in Diagnosing Kidney Disease. Dutch Journal of Kidney Diseases 2021;79(2):268-88.e1. 2. N Engl J Med 2020 Vol. 385 Issue 19 Pages 4864-6673 Performed By: #### C H8, MG #### [facility] [address] [place], [place], Glucose [Mass/Vol] 89 mg/dL Normal 74-109 [facility] Comment on above: Performed By: #### C H8, MG #### [facility] [address] [place], [place], Potassium [Moles/Vol] 7.8 mmol/L Critically high 3.5-5.0 [facility] Comment on above: Result Comment: Hemo lysis present Performed By: #### C H8, MG #### [facility] [address] [place], [place], Sodium [Moles/Vol] 139 mmol/L Normal 136-145 The [facility] Comment on above: Performed By: #### C H8, MG #### [facility] [address] [place], [place], Urea nitrogen [Mass/Vol] 12 mg/dL Normal 7-25 The [facility] Comment on above: Performed By: #### C H8, MG #### [facility] [address] [place], [place], Basic metabolic 2000 panelOr dered By: Kali Hayes on 07-07-2024 Anion gap [Moles/Vol] 13 mmol/L 10 - 20 Met [facility] Calcium [Mass/Vol] 8.8 mg/dL 8.6 - 10. [...] Reference: 1. Jimmy C, Merlin M, Nancy DC, et al.. A Unifying Approach for GFR Estimation: Recommendations of the NKF-ASN Task Force on Reassessing the Inclusion of Race in Diagnosing Kidney Disease. Dutch Journal of Kidney Diseases 202;79(2):268-88.e1. 2. N Engl J Med 2020 Vol. 385 Issue 19 Pages 2073-9858 Glucose [Mass/Vol] 89 mg/dL 74 - 109 mg/dL [facility] Interpretation and review of laboratory results Abnormal [facility] Potassium [Moles/Vol] 7.8 mmol/L Critically high 3.5 - 5.0 mmol/L [facility] Comment on above: Hemolysis present Sodium [Moles/Vol] 139 mmol/L 136 - 145 mmol/L [facility] Urea nitrogen [Mass/Vol] 12 mg/dL 7 - 25 mg/dL [facility] CBC WITH DIFFERENTIALon 120 Basophils (Bld) [#/Vol] 0.03 10*3/uL 0.00 - [...] [#/Vol] 323 10*3/uL 150 - 400 K/uL [facility] RBC (Bld) [#/Vol] 4.87 10*6/uL [facility] WBC (Bld) [#/Vol] 8.4 10*3/uL 4.5 - 11.5 K/uL [facility] Basophils (Bld) [#/Vol] 0.03 10*3/uL Normal 0.00-0.20 [facility] Comment on above: Performed By: #### N T-PROBNP, CBCDSAT ####[facility] PATH[facility] [id number] [place] [address], Basophils/100 WBC (Bld) 0.3 % Normal <=1.9 T [facility] Comment on above: Performed By: #### N T-PROBNP, CBCDSAT ####[facility] PATHOLOGY [id number] [place] [address], Eosinophils (Bld) [#/Vol] 0.28 10*3/uL Normal 0.00-0.70 The [facility] Comment on above: Performed By: #### N T-PROBNP, CBCDSAT ####[facility] PATH[facility]Y [id number] [place] [address], Eosinophils/100 WBC (Bld) 3.4 % Normal 0.1-4.0 The [facility] Comment on above: Performed By: #### N T-PROBNP, CBCDSAT ####[facility] PATHOLOGY [id number] [place] [address], Erythrocyte distribution width (RBC) [Ratio] 13.3 % Normal 11.5-14.5 [facility] Comment on above: Performed By: #### N T-PROBNP, CBCDSAT ####[facility] PATHOLOGY [id number] [place] [address], Hematocrit (Bld) [Volume fraction] 45.3 % Normal 36.0-46.0 [facility] Comment on above: Performed By: #### N T-PROBNP, CBCDSAT ####[facility] PATHOLOGY [id number] [place], [place], Hemoglobin (Bld) [Mass/Vol] 14.7 g/dL Normal 12.0-15.0 [facility] Comment on above: Performed By: #### N T-PROBNP, CBCDSAT ####[facility] PATHOLOGY [id number] [place], [place], Lymphocytes (Bld) [#/Vol] 0.72 10*3/uL Low 1.00-4.80 The [facility] Comment on above: Performed By: #### N T-PROBNP, CBCDSAT ####[facility] PATHOLOGY [id number] [place] [address], Lymphocytes/100 WBC (Bld) 8.5 % Low 24.0-44.0 The [facility] Comment on above: Performed By: #### N T-PROBNP, CBCDSAT ####[facility]OLOGY [id number] [place], [place], MCH (RBC) [Entitic mass] 30.2 pg Normal 26.0-34.0 The [facility] Comment on above: Performed By: #### N T-PROBNP, CBCDSAT ####[facility] PATHOLOGY [id number] [place], MCHC (RBC) [Mass/Vol] 32.5 g/dL Normal 32.0-35.9 The [facility] Comment on above: Performed By: #### N T-PROBNP, CBCDSAT ####[facility] PATHOLOGY [id number] [place], [place], MCV (RBC) [Entitic vol] 93 fL Normal 80-100 T [facility] Comment on above: Performed By: #### N T-PROBNP, CBCDSAT ####[facility] PATHOLOGY [id number] [place], [place], MONOCYTE DISTRIBUTION WIDTH 18 Normal <=20 The [facility] Comment on above: Performed By: #### N T-PROBNP, CBCDSAT ####[facility] [id number] [place], Monocytes (Bld) [#/Vol] 0.57 10*3/uL Normal 0.20-1.00 The [facility] Comment on above: Performed By: #### N T-PROBNP, CBCDSAT ####[facility] [id number] [place], Monocytes/100 WBC (Bld) 6.8 % Normal 2.0-11.0 [facility] Comment on above: Performed By: #### N T-PROBNP, CBCDSAT ####[facility] [id number] [place], Neutrophils (Bld) [#/Vol] 6.83 10*3/uL Normal 1.50-8.00 The [facility] Comment on above: Performed By: #### N T-PROBNP, CBCDSAT ####[facility] [id number] [place] [address], Neutrophils/100 WBC (Bld) 81.0 % High 31.0-76.0 The [facility] Comment on above: Performed By: #### N T-PROBNP, CBCDSAT ####[facility] [id number] [place], Platelet mean volume (Bld) [Entitic vol] 8.9 fL Normal 7.5-11.2 The [facility] Comment on above: Performed By: #### N T-PROBNP, CBCDSAT ####[facility] [id number] [place], Platelets (Bld) [#/Vol] 323 10*3/uL Normal 150-400 [facility] Comment on above: Performed By: #### N T-PROBNP, CBCDSAT ####[facility] [id number] [place], RBC (Bld) [#/Vol] 4.87 10*6/uL Normal 4.00-5.20 [facility] Comment on above: Performed By: #### N T-PROBNP, CBCDSAT ####S PATHOLOGY [id number] [place], WBC (Bld) [#/Vol] 8.4 10*3/uL Normal 4.5-11.5 [facility] Comment on above: Performed By: #### N T-PROBNP, CBCDSAT ####[facility] PATHOLOG[facility] [id number] [place], [place], COVID/INFLUENZAOrdered By: Ricardo Rivas on 07-07-2024 FLUAV RNA CRISTIAN+probe Ql (Nph) Not detected Not Detected [facility] Comment on above: This assay was perfo rmed using Felicia [employer] RTPCR technology. FLUBV RNA CRISTIAN+probe Ql (Nph) Not detected Not Detected [facility] Comment on above: This assay was perfo rmed using [employer] RTPCR technology. Interpretation and review of laboratory results Normal [facility] SARS-CoV-2 (COVID-19) Ab IA Ql Not Detected results are indicative of the absence of SARS-CoV-2 in the specimen submitted for testing. False negative results are possible based on the timing and quality of specimen submitted for testing. [facility] SARS-CoV-2 (COVID-19) RNA CRISTIAN+probe Ql (Unsp spec) Not detected Not Detected [facility] Comment on above: This assay was perfo rmed using Felicia ROQUE RTPCR technology. [facility] COVID/INFLUENZAon 07-07-2024 INFLUENZA A Not detected Normal Not Detected [facility] Comment on above: Order Comment: Not D etected results are indicative of the absence of SARS-CoV-2 in the specimen submitted for testing. False negative results are possible based on the timing and quality of specimen submitted for testing. Result Comment: This assay was performed using [employer] RTPCR technology. Performed By: #### F JEREMIAH/COVID #### [facility] [address] [place], [place], INFLUENZA B Not detected Normal Not Detected [facility] Comment on above: Order Comment: Not D etected results are indicative of the absence of SARS-CoV-2 in the specimen submitted for testing. False negative results are possible based on the timing and quality of specimen submitted for testing. Result Comment: This assay was performed using [employer] RTPCR technology. Performed By: #### F JEREMIAH/COVID #### [facility] [address] [place], [place], SARS-CoV-2 (COVID-19) RNA CRISTIAN+probe Ql (Unsp spec) Not detected Normal Not Detected The [employer] Comment on above: Order Comment: Not D etected results are indicative of the absence of SARS-CoV-2 in the specimen submitted for testing. False negative results are possible based on the timing and quality of specimen submitted for testing. Result Comment: This assay was performed using [employer] RTPCR technology. Performed By: #### F JEREMIAH/COVID #### [facility] [address] [place], [place], CT HEAD W/O CONTRASTon 07-07 CT HEAD W/O CONTRAST EXAMINATION: CT HEA D W/O CONTRAST 07/07/2024 12:44 PM CLINICAL HISTORY: recurrent falls with +LOC ASSOCIATED DIAGNOSIS: recurrent falls with +LOC ORDERING PROVIDER: MASTER LUNDY NOTE: COMPARISON: None TECHNIQUE: Thin axial imaging of the head was performed without intravenous contrast. FINDINGS: No mass or acute hemorrhage. No evidence of acute infarct. The ventricles are within normal limits for age. The skull, paranasal sinuses and tympanomastoid cavities are normal. IMPRESSION: No acute intracranial abnormality. MACRO: None Normal The [employer] CT Head WO contrastOrdered B y: Fredy Naidu on 07-07-2024 CT DLP 1070.5 (mGy.cm) [facility] Work Phone: CT Series Head [facility] Work Phone: CTDI VOL 62.0 (mGy) [facility] Work Phone: PHANTOM TYPE IEC Head Dosimetry Phantom [employer] Work Phone: [facility] Work Phone: CT Head WO contraston 2023 EXAMINATION: CT HEAD W/O CONTRAST 07/07/2024 12:44 PM CLINICAL HISTORY: recurrent falls with +LOC ASSOCIATED DIAGNOSIS: recurrent falls with +LOC ORDERING PROVIDER: MASTER LUNDY NOTE: COMPARISON: None TECHNIQUE: Thin axial imaging [...] recurrent falls with +LOC ORDERING PROVIDER: MASTER LUNDY NOTE: COMPARISON: None TECHNIQUE: Thin axial imaging of the head was performed without intravenous contrast. FINDINGS: No mass or acute hemorrhage. No evidence of acute infarct. The ventricles are within normal limits for age. The skull, paranasal sinuses and tympanomastoid cavities are normal. IMPRESSION: No acute intracranial abnormality. MACRO: None [facility] Radiology Study observation (narrative) [facility] CTA CHEST PULMONARY EMBOLISM W/on 07-07-2024 [...] of cardiac insufficiency. MACRO: None Normal [facility] CTA Pulmonary arteries for p ulmonary embolus W contrast IVOrdered By: Tate Snow on 07-07-2024 CT DLP 510.2 (mGy.cm) [facility] Work Phone: CT Series Chest,Chest,Chest [facility] Work Phone: CTDI VOL 5.3 (mGy),12.1 (mGy),17.0 (mGy) [facility] Work Phone: LIMITED SEGMENTAL No PE identified. PE cannot be evaluated beyond the segmental level due to the limitations above. [facility] Work Phone: PHANTOM TYPE IEC Body Dosimetry Phantom,IEC Body Dosimetry Phantom,IEC Body Dosimetry Phantom [facility] Work Phone: [facility] Work Phone: CTA Pulmonary arteries for p [...] - 07/07/2024 EXAMINATION: CTA CHEST PULMONARY EMBOLISM 07/07/2024 03:52 PM CLINICAL HISTORY: Pulmonary embolism suspected ASSOCIATED DIAGNOSIS: Pulmonary embolism suspected ORDERING PROVIDER: MASTER PAPPAS TECHNDAVID NOTE: COMPARISON: None TECHNIQUE: Axial images of [...] IVC suggestive of cardiac insufficiency. MACRO: None [facility] Radiology Study observation (narrative) [facility] ED Noteson 07-07-2024 [employer] Authentication Interface Message Text Transition of Care; [...] ano (more content not included)... Normal [facility] [employer] Authentication Interface Message Text notified of critical POTASIUM value of 7.8. Hard copy of results given to . Jodi Jose, EMR . Normal The [employer] Authentication Interface Message Text Pt to edxr, ct. Pt given gown, encouraged to change. ES Normal [facility] ED Provider Noteson 07-07-20 [employer] Authentication Interface Message Text EMERGENCY DEPARTMENT - VISIT NOTE --------- HISTORY OF PRESENT ILLNESS ----- Chief Complaint Patient presents with Shortness of breath Patient states that she began to notice her MS flaring up for the past week, since then has been having worsening body wide pain especially in diaphragm that is causing shortness of breath. Also admits to multiple falls this week Fireworks Assembler: not needed - patient preferred language is [place] Islander. The history is provided by the Patient. [...] Multiple sclerosis exacerbation (HCC) [G35] Stroke (cerebrum) ([facility]) [I63.9] Vitamin D deficiency [E55.9] Shortness of [...] EKG NSR 60 BPM, normal axis, normal MA/QT interval, isolated T-wave inversions in III and [...] wave Atrium by EKG 55 BPM [facility] P wave axis 60 degrees [facility] P-R Interval 182 ms [facility] Q-T interval 454 ms [facility] Q-T interval corrected 434 ms [facility] QRS axis 42 degrees [facility] QRS duration 62 ms [facility] T wave axis 18 degrees [facility] H AND José Miguel 07-07-2024 [employer] Authentication Interface Message Text Hospital Medicine H [...] living home. Yousif Gillette MD Normal [facility] HIGH SENSITIVITY CARDIAC TRO PONIN I (HS-CTNI) SERIAL TESTING 0HR (BASELINE)on 07-07-2024 Troponin I.cardiac DL <= 0.01 ng/mL [Mass/Vol] 5 ng/L NINF - 15 ng/L [facility] HS-CTNI 0 HR (BASELINE) 5 ng/L Normal <=15 T he [facility] Comment on above: Order Comment: [place] alva troponin can result from acute myocardial [...] STRP SERIAL #### [facility] [address] [place], [address] HIGH SENSITIVITY CARDIAC TRO PONIN I (HS-CTNI) SERIAL TESTING 2HRon 07-07-2024 Troponin I.cardiac DL <= 0.01 ng/mL [Mass/Vol] 5 ng/L NINF - 15 ng/L [facility] DELTA HS-CTNI (0 HR-2HR) 0 ng/L Normal <5 The [facility] Comment on above: Order Comment: [place] alva troponin can result from acute myocardial [...] Performed By: #### H STRP 2HR #### S [facility] LABORATORY [address] [place], [place], HS-CTNI 2 HR 5 ng/L Normal <=15 The [facility] Comment on above: Order Comment: [place] alva troponin can result from acute myocardial [...] H STRP 2HR #### [facility] [address] [place], [place], MAGNESIUMon 07-07-2024 Interpretation and review of laboratory results Normal [facility] Magnesium [Mass/Vol] 2 mg/dL 1.9 - 2 .7 mg/dL [facility] Comment on above: Hemolysis present [facility] Magnesium [Mass/Vol] 2.0 mg/dL Normal 1.9-2.7 [facility] Comment on above: Result Comment: Hemo lysis present Performed By: #### C H8, MG #### [facility] [address] [place], [place], NT PRO-BNPon 07-07-2024 Interpretation and review of laboratory results Normal [facility] Natriuretic peptide.B prohormone N-Terminal IA [Mass/Vol] 92 pg/mL NINF - 300 pg/mL [facility] Age(Years) Results (pg/mL) Interpretation All <300 Negative: Heart failure unlikely. <50 >/=300 - 50-75 >/=300 - >75 >/=300 - <50 >450 Positive: 50-75 >900 Heart failure likely. >75 >1800 [facility] Natriuretic peptide B (Bld) [Mass/Vol] 92 pg/mL Normal <300 [facility] Comment on above: Order Comment: Age(Y ears) Results (pg/mL) InterpretationAll <300 Negative: Heart failure unlikely.<50 >/=300 - /=300 - 75 >/=300 - 450 Positive:50-75 >900 Heart failure likely.>75 >1800 Performed By: #### N T-PROBNP, CBCDSAT ####[facility] [id number] [place], [place], POTASSIUM, WHOLE BLOODOrdere d By: Jessie Rodriguez on 07-07-2024 Interpretation and review of laboratory results Normal [facility] Potassium [Moles/Vol] 3.8 mmol/L 3.5 - 5.0 mmol/L [facility] POTASSIUM, WHOLE BLOODon Potassium [Moles/Vol] 3.8 mmol/L Normal 3.5-5.0 The [facility] Comment on above: Performed By: #### C R K #### [facility] [address] [place], [place], Progress Noteson 07-07-2024 [employer] Authentication Interface Message Text 07/07/242021 Admit Note (Completed by Receiving Unit) Arrival Time: 2021 Arrived to: 8 [facility] Arrived from: ED Mode of Transport Wheelchair Transported by: Patient Transporter Admission Note Addendum Admission Attire Dressed in hospital gown Patient Behavior Calm Affect WNL Normal [facility] Troponin I.cardiac DL <= 0.0 1 ng/mL [Mass/Vol]on 07-07-2024 DELTA hs-cTnI, (0 HR-2HR) 0 ng/L NINF - 5 ng/L [facility] Interpretation and review of laboratory results Normal [facility] Elevated troponin ca n result from [...] within the clinical context using provider judgement. [facility] Interpretation and review of laboratory results Normal [facility] Elevated troponin ca n result from [...] within the clinical context using provider judgement. [facility] XR CHEST PA+LAT 2 VIEWSon XR CHEST PA+LAT 2 VIEWS EXAMINATION: XR CHEST PA+LAT 2 VIEWS 07/07/2024 12:20 PM CLINICAL HISTORY: Dyspnea at rest ASSOCIATED DIAGNOSIS: Dyspnea at rest ORDERING PROVIDER: MASTER PAPPAS TECHNOLOGISTS NOTE: COMPARISON: None FINDINGS: Cardiomediastinal silhouette: Normal. Lungs/Pleura: No focal pulmonary consolidation, effusion or pneumothorax. Lung volumes are low, causing crowding of the bronchovascular structures at the lung bases. Musculoskeletal: Degenerative spurring within the thoracic spine. IMPRESSION: No acute cardiopulmonary abnormality identified. MACRO: None Normal The [facility] XR Chest PA and Lateralon EXAMINATION: [...] No acute cardiopulmonary abnormality identified. MACRO: None [facility] Radiology Study observation (narrative) [facility] XR Chest PA and LateralOrder ed By: Natasha Humphrey on 07-07-2024 [facility] Work Phone: OVon 06-16-2024 CNOV Office Visit (IGMN ) BRYAN CRUZ ([id number]) 1970 F [place] Date Time Provider Department 06/16/24 3:00 PM FREDA HERNANDEZ JIGAR During your visit today, we recorded the following information about you: Blood pressure Weight 138/82 102.3 kg Freda Hernandez APRN.MAID HOUSEKEEPER 06/17/2024 10:53 AM Signed [facility] Benign Gynecology [facility] PATIENT NAME: Bryan Cruz PCP: Sandro Hinojosa [...] significant patho (more content not included)... Normal [facility] US Pelvison 06-10-2024 Indication Postmenopausal bleeding. Fibroids Impression [...] By: Dejon Del Toro M.D. MATERNAL MEDICINE [facility] Radiology Study observation (narrative) [facility] CNOVon 06-05-2024 CNOV Office Visit (GMIGMN ) BRYAN CRUZ ([id number]) 1970 F [place] Date Time Provider Department 06/05/24 2:00 PM [facility] During your visit today, we recorded the following information about you: Blood pressure Weight Height 128/64 100.3 kg 1.524 m Freda Hernandez, SCABBLER.MAID HOUSEKEEPER 06/05/2024 2:30 PM Signed [facility] Department of Benign Gynecology [facility] PATIENT NAME: Bryan Cruz PCP: Sandro Hinojosa [...] Thought content (more content not included)... Normal [facility] ENDO BIOPSYon 06-05-2024 [facility] SURGICAL PATHOLOGYon 024 CASE REPORT Normal [facility] Comment on above: Order Comment: Speci men Type: TISSUE SPECIMENOrdering Facility: [facility] Address: [address] [place] [address] Result Comment: Surg ica Pathology Report Case: [id number] Authorizing Provider: Freda Hernandez, Collected: 06/05/2024 02:13 PM SCABBLER.MAID HOUSEKEEPER Ordering Location: Gynecology Received: 06/05/2024 05:40 PM Pathologist: Patricia Benitez MD Specimen: Endometrium, Biopsy Performed By: #### S ####[facility] LABCLIA [id number] [place] [address] [place] CLINICAL HISTORY pmb Normal [facility] Comment on above: Order Comment: Speci men Type: TISSUE SPECIMENOrdering Facility: [facility] Address: [address] [place] [address] Performed By: #### S ####[facility] [id number] [place] [address] [place] FINAL DIAGNOSIS Normal [facility] Comment on above: Order Comment: Speci men Type: TISSUE SPECIMENOrdering Facility: [facility] Address: [address] [place] [address] Result Comment: A. E ndometrium, biopsy: - Very scant benign endocervical and squamous cells, with rare superficial strip of glandular cells with ciliary/tubal metaplasia, see comment Performed By: #### S ####[facility] LAB[facility] [id number] [place] [address] [place] FINAL PERFORMING LAB Normal [facility] Comment on above: Order Comment: Speci men Type: TISSUE SPECIMENOrdering Facility: [facility] Address: [address] [place] [address] Result Comment: Diag nostic interpretation performed at [facility], [address] [place] [address] CLIA# [id number] Hospitality Team Member: Anil Gage M.D. Performed By: #### S ####[facility] LABCLIA [id number] [place] [address] [place] GROSS DESCRIPTION Normal [facility] Comment on above: Order Comment: Speci men Type: TISSUE SPECIMENOrdering Facility: [facility] Address: [address] [place] [address] Result Comment: A. E ndometrium, Biopsy Received in formalin are multiple carrasco, soft feathery segments of tissue aggregating to 1.3 x 0.7 x 0.1 cm. Totally submitted in one cassette. Gross examination performed at [facility], [address] [place] [address] JT 06/06/2024 12:19 AM Performed By: #### S ####[facility]CLIA [id number] [facility] [id number] [address] [place] CNCOon 06-04-2024 CNCO Letter Text Normal [facility] MR Cervical spine WO and W c ontrast Carol 06-04-2024 IMPRESSION: 1. STABLE CORD SIGNAL ABNORMALITY AT C2-3 2. NO NEW SUSPICIOUS CORD SIGNAL ABNORMALITIES 3. NO SUSPICIOUS ENHANCEMENT Anatomic Variant: None. Assume 7 cervical vertebrae with counting from the craniocervical junction. [employer] Supervisor: [employer] Transcribe Date/Time: Jun 04 2024 11:58A Dictated by : ALLYSSA HARMON MD This examination was interpreted and the report reviewed and electronically signed by: ALLYSSA HARMON MD on Jun 04 2024 12:19PM [facility] DIVISION OF RADIOLOGY * * *Final [...] or foraminal narrowing. DIVISION OF RADIOLOGY Provider, Kristine Bliss - 06/04/2024 * * *Final Report* [...] vertebrae with counting from the craniocervical junction. [employer] Supervisor[facility] Transcribe Date/Time: Jun 04 2024 11:58A Dictated by : ALLYSSA HARMON MD This examination was interpreted and the report reviewed and electronically signed by: ALLYSSA HARMON MD on Jun 04 2024 12:19PM EST [facility] Radiology Study observation (narrative) Jason fabian [facility] MR Cervical spine WO and W c ontrast IVOrdered By: Ccf Provider on 06-04-2024 [facility] MRI CERVICAL SPINE WO/W IVCO Non 06-04-2024 [...] vertebrae with counting from the craniocervical junction. [employer] Supervisor: [employer] Transcribe Date/Time: Jun 04 2024 11:58A Dictated by : ALLYSSA HARMON MD This examination was interpreted and the report reviewed and electronically signed by: ALLYSSA HARMON MD on Jun 04 2024 12:19PM EST [id number] N Normal [facility] 25(OH)D3 [facility] 2023 25-hydroxyvitamin D3 [Mass/Vol] 28.3 ng/mL Low 31.0-80.0 [facility] Comment on above: Order Comment: Speci men Type: BLOOD SPECIMENOrdering Facility: [facility] Address: [address] [place] [address] Result Comment: Clas sification of 25 [place] Vitamin D status: Deficiency/Insufficiency: < or = 30 ng/ml. Sufficiency/Optimal Levels: 31-80 ng/mL Toxicity: > 100 ng/mL. Test performed by chemiluminescent immunoassay. Performed By: #### 1 989-3 ####[facility]CLIA [id number] [address] [place] [address] [place] 25-hydroxyvitamin D3 [Mass/V ol]on 05-08-2024 Interpretation and review of laboratory results Abnormal [facility] The reference range interval was based on an analysis of samples from healthy adults and may not pertain to children from 0-18 years old. [facility] CBC W Auto Differential pane l (Bld)on 05-08-2024 Basophils (Bld) [#/Vol] 0.03 10*3/uL [facility] Basophils/100 WBC (Bld) 0.3 % C [facility] Differential cell count method Nom (Bld) Auto [facility] Eosinophils (Bld) [#/Vol] 0.45 10*3/uL [facility] Eosinophils/100 WBC (Bld) 4.2 % [facility] Erythrocyte distribution width (RBC) [Ratio] 13.3 % 11.5 - 15.0 % [facility] Hematocrit (Bld) [Volume fraction] 45.2 % 36.0 - 46.0 % [facility] Hemoglobin (Bld) [Mass/Vol] 13.5 g/dL 11.5 - 15.5 g/dL [facility] Immature granulocytes (Bld) [#/Vol] 0.05 10*3/uL [facility] Immature granulocytes/100 WBC (Bld) 0.5 % [facility] Interpretation and review of laboratory results Abnormal [facility] Lymphocytes (Bld) [#/Vol] 1.10 10*3/uL [facility] Lymphocytes/100 WBC (Bld) 10.3 % [facility] MCH (RBC) [Entitic mass] 30.4 pg 26.0 - 34.0 pg [facility] MCHC (RBC) [Mass/Vol] 29.9 g/dL Low 30.5 - 36.0 g/dL [facility] MCV (RBC) [Entitic vol] 101.8 fL High 80.0 - 100.0 fL [facility] Monocytes (Bld) [#/Vol] 0.81 10*3/uL [facility] Monocytes/100 WBC (Bld) 7.6 % [facility] Neutrophils (Bld) [#/Vol] 8.20 10*3/uL High [facility] Neutrophils/100 WBC (Bld) 77.1 % [facility] Nucleated RBC (Bld) [#/Vol] NINF [facility] Nucleated RBC/100 WBC (Bld) [Ratio] 0.0 % /100 WBC [facility] Platelet mean volume (Bld) [Entitic vol] 11.9 fL 9.0 - 12.7 fL [facility] Platelets (Bld) [#/Vol] 352 10*3/uL [facility] RBC (Bld) [#/Vol] 4.44 10*6/uL 3.90 - 5.2 0 m/uL [facility] WBC (Bld) [#/Vol] 10.64 10*3/uL [facility] Basophils (Bld) [#/Vol] 0.03 10*3/uL Normal <0.11 [facility] Comment on above: Order Comment: Speci men Type: BLOOD SPECIMENOrdering Facility: [facility] Address: [address] [place] [address] Performed By: #### 5 7021-8 ####[facility]CLIA [id number] [place] [address] [place] Basophils/100 WBC (Bld) 0.3 % Normal C [facility] Comment on above: Order Comment: Speci men Type: BLOOD SPECIMENOrdering Facility: [facility] Address: [address] [place] [address] Performed By: #### 5 7021-8 ####[facility]CL[facility] [id number] [place] [address] [place] Differential cell count method Nom (Bld) Auto Normal [facility] Comment on above: Order Comment: Speci men Type: BLOOD SPECIMENOrdering Facility: [facility] Address: [address] [place] [address] Performed By: #### 5 7021-8 ####[facility]CL[facility] [id number] [place] [address] [place] Eosinophils (Bld) [#/Vol] 0.45 10*3/uL Normal <0.46 [facility] Comment on above: Order Comment: Speci men Type: BLOOD SPECIMENOrdering Facility: [facility] Address: [address] [place] [address] Performed By: #### 5 7021-8 ####[facility]CL[facility] [id number] [place] [address] [place] Eosinophils/100 WBC (Bld) 4.2 % Normal [facility] Comment on above: Order Comment: Speci men Type: BLOOD SPECIMENOrdering Facility: [facility] Address: [address] [place] [address] Performed By: #### 5 7021-8 ####[facility]CLIA [id number] [place] [address] [place] Erythrocyte distribution width (RBC) [Ratio] 13.3 % Normal 11.5-15.0 [facility] Comment on above: Order Comment: Speci men Type: BLOOD SPECIMENOrdering Facility: [facility] Address: [address] [place] [address] Performed By: #### 5 7021-8 ####[facility]CLIA [id number] [place] [address] [place] Hematocrit (Bld) [Volume fraction] 45.2 % Normal 36.0-46.0 [facility] Comment on above: Order Comment: Speci men Type: BLOOD SPECIMENOrdering Facility: [facility] Address: [address] [place] [address] Performed By: #### 5 7021-8 ####[facility]CLIA [id number] [place] [address] [place] Hemoglobin (Bld) [Mass/Vol] 13.5 g/dL Normal 11.5-15.5 [facility] Comment on above: Order Comment: Speci men Type: BLOOD SPECIMENOrdering Facility: [facility] Address: [address] [place] [address] Performed By: #### 5 7021-8 ####[facility]CLIA [id number] [place] [address] [place] Immature granulocytes (Bld) [#/Vol] 0.05 10*3/uL Normal <0.10 [facility] Comment on above: Order Comment: Speci men Type: BLOOD SPECIMENOrdering Facility: [facility] Address: [address] [place] [address] Performed By: #### 5 7021-8 ####[facility]CLIA [id number] [place] [address] [place] Immature granulocytes/100 WBC (Bld) 0.5 % Normal [facility] Comment on above: Order Comment: Speci men Type: BLOOD SPECIMENOrdering Facility: [facility] Address: [address] [place] [address] Performed By: #### 5 7021-8 ####[facility]CLIA [id number] [place] [address] [place] Lymphocytes (Bld) [#/Vol] 1.10 10*3/uL Normal 1.00-4.00 [facility] Comment on above: Order Comment: Speci men Type: BLOOD SPECIMENOrdering Facility: [facility] Address: [address] [place] [address] Performed By: #### 5 7021-8 ####[facility]CLIA [id number] [place] [address] [place] Lymphocytes/100 WBC (Bld) 10.3 % Normal [facility] Comment on above: Order Comment: Speci men Type: BLOOD SPECIMENOrdering Facility: [facility] Address: [address] [place] [address] Performed By: #### 5 7021-8 ####[facility]CLIA [id number] [place] [address] [place] MCH (RBC) [Entitic mass] 30.4 pg Normal 26.0-34.0 [facility] Comment on above: Order Comment: Speci men Type: BLOOD SPECIMENOrdering Facility: [facility] Address: [address] [place] [address] Performed By: #### 5 7021-8 ####[facility]CLIA [id number] [place] [address] [place] MCHC (RBC) [Mass/Vol] 29.9 g/dL Low 30.5-36.0 [facility] Comment on above: Order Comment: Speci men Type: BLOOD SPECIMENOrdering Facility: [facility] Address: [address] [place] [address] Performed By: #### 5 7021-8 ####[facility]CLIA [id number] [place] [address] [place] MCV (RBC) [Entitic vol] 101.8 fL High 80.0-100.0 C [facility] Comment on above: Order Comment: Speci men Type: BLOOD SPECIMENOrdering Facility: [facility] Address: [address] [place] [address] Performed By: #### 5 7021-8 ####[facility] LABIA [id number] [place] [address] [place] Monocytes (Bld) [#/Vol] 0.81 10*3/uL Normal <0.87 [facility] Comment on above: Order Comment: Speci men Type: BLOOD SPECIMENOrdering Facility: [facility] Address: [address] [place] [address] Performed By: #### 5 7021-8 ####[facility]CLIA [id number] [place] [address] [place] Monocytes/100 WBC (Bld) 7.6 % Normal C [facility] Comment on above: Order Comment: Speci men Type: BLOOD SPECIMENOrdering Facility: [facility] Address: [address] [place] [address] Performed By: #### 5 7021-8 ####[facility]CLIA [id number] [place] [address] [place] Neutrophils (Bld) [#/Vol] 8.20 10*3/uL High 1.45-7.50 [facility] Comment on above: Order Comment: Speci men Type: BLOOD SPECIMENOrdering Facility: [facility] Address: [address] [place] [address] Performed By: #### 5 7021-8 ####[facility]CLIA [id number] [place] [address] [place] Neutrophils/100 WBC (Bld) 77.1 % Normal [facility] Comment on above: Order Comment: Speci men Type: BLOOD SPECIMENOrdering Facility: [facility] Address: [address] [place] [address] Performed By: #### 5 7021-8 ####[facility]CLIA [id number] [place] [address] [place] Nucleated RBC (Bld) [#/Vol] 10*3/uL Normal <0.01 [facility] Comment on above: Order Comment: Speci men Type: BLOOD SPECIMENOrdering Facility: [facility] Address: [address] [place] [address] Performed By: #### 5 7021-8 ####[facility]CLIA [id number] [place] [address] [place] Nucleated RBC/100 WBC (Bld) [Ratio] 0.0 /100 WBC Normal [facility] Comment on above: Order Comment: Speci men Type: BLOOD SPECIMENOrdering Facility: [facility] Address: [address] [place] [address] Performed By: #### 5 7021-8 ####[facility]CLIA [id number] [place] [address] [place] Platelet mean volume (Bld) [Entitic vol] 11.9 fL Normal 9.0-12.7 [facility] Comment on above: Order Comment: Speci men Type: BLOOD SPECIMENOrdering Facility: [facility] Address: [address] [place] [address] Performed By: #### 5 7021-8 ####[facility]CL[facility] [id number] [place] [address] [place] Platelets (Bld) [#/Vol] 352 10*3/uL Normal 150-400 [facility] Comment on above: Order Comment: Speci men Type: BLOOD SPECIMENOrdering Facility: [facility] Address: [address] [place] [address] Performed By: #### 5 7021-8 ####[facility] LABIA [id number] [place] [address] [place] RBC (Bld) [#/Vol] 4.44 10*6/uL Normal 3.90-5.20 [facility] Comment on above: Order Comment: Speci men Type: BLOOD SPECIMENOrdering Facility: [facility] Address: [address] [place] [address] Performed By: #### 5 7021-8 ####[facility]CLIA [id number] [place] [address] [place] WBC (Bld) [#/Vol] 10.64 10*3/uL Normal 3.70-11.00 [facility] Comment on above: Order Comment: Speci men Type: BLOOD SPECIMENOrdering Facility: [facility] Address: [address] [place] [address] Performed By: #### 5 7021-8 ####[facility] LABIA [id number] [place] [address] [place] CNOVon 05-08-2024 CNOV Office Visit ([facility] ) BRYAN CRUZ ([id number]) 1970 F [place] Date Time Provider Department 05/08/24 9:30 AM RAYMOND KEMP [facility] During your visit today, we recorded the following information about you: Pulse Blood pressure Weight 64/minute 126/65 96 kg Raymond Kemp APRN.MAID HOUSEKEEPER 05/08/2024 2:11 PM [facility] FOLLOWUP/ESTABLISHED PATIENT VISIT PRINCIPAL NEUROLOGIC DIAGNOSIS: Multiple [...] or illness In a sober house in [place] Has been sober about 7 months Doctor [...] vision changes Neuro-QoL Functions (higher=better functioning) Flowsheet [facility] Office Visit from 07/19/2023 in [facility] Office Visit from 04/18/2023 in [facility] Office Visit from 10/27/2021 in [facility] Upper Extremity Domain T Score 44.53 42.12 42.58 Lower Extremity Domain T Score 40.35 34.04 36.94 Cognitive Function Domain T Score 48.64 46.37 52.55 Positive Affect Well Being T Score -- -- -- Ability To Participate In Social Roles T Score 44.12 33.38 37.21 Satisfaction With Social Roles T Score 41.34 36.98 40.61 Neuro-QoL Symptoms (higher=worse symptoms) Flowsheet [facility] Office Visit from 07/19/2023 in [facility] Office Visit from 04/18/2023 in [facility] Office Visit from 10/27/2021 in [facility] Sleep Domain T Score 57.7 61.86 67.68 Fatigue Domain T Score 56.21 58.38 50.45 Anxiety Domain T Score 48.72 48.87 56.09 Depression Domain T Score 46.25 47.97 55.43 Stigma Domain T Score 36.56 51.87 44.69 Emotional Behavior Dyscontrol T Score -- -- -- has a past medical history of Cocaine use, Depression, Fibroid, Multiple sclerosis ([facility]), Smoking, and Stroke (cerebrum) ([facility]). has a current medication list which includes [...] Years) BMI 41.33 kg/m? MSPT Results Flowsheet [facility] Office Visit from 07/19/2023 in [facility] Office Visit from 04/18/2023 in [facility] Office Visit from 10/27/2021 in [facility] Processing Speed Total Number Correct 45 [...] 5 Biceps 5 5 Triceps 5 5 Runner Worker 5 5 Dorsal interossei 5 5 Lower extremity: Iliopsoas 5 5- Quadriceps 5 5 Hamstri (more content not included)... Normal [facility] Comprehensive metabolic 2000 panelon 05-08-2024 Albumin [Mass/Vol] 3.9 g/dL Normal 3.9-4.9 [facility] Comment on above: Order Comment: Speci men Type: BLOOD SPECIMENOrdering Facility: [facility] Address: [address] [place] [address] Performed By: #### 2 132-9, 22931-1, 78393-6 ####[facility] LABIA [id number] [place] [address] [place] ALP [Catalytic activity/Vol] 127 U/L High 34-123 [facility] Comment on above: Order Comment: Speci men Type: BLOOD SPECIMENOrdering Facility: [facility] Address: [address] [place] [address] Performed By: #### 2 132-9, 76694-9, 38596-0 ####[facility]CLIA [id number] [place] [address] [place] ALT [Catalytic activity/Vol] 18 U/L Normal 7-38 [facility] Comment on above: Order Comment: Speci men Type: BLOOD SPECIMENOrdering Facility: [facility] Address: [address] [place] [address] Performed By: #### 2 132-9, 74338-6, 40197-9 ####[facility]CLIA [id number] [place] [address] [place] Anion gap [Moles/Vol] 10 mmol/L Normal 8-15 [facility] Comment on above: Order Comment: Speci men Type: BLOOD SPECIMENOrdering Facility: [facility] Address: [address] [place] [address] Performed By: #### 2 132-9, 79288-0, 52749-6 ####[facility]CLIA [id number] [place] [address] [place] AST [Catalytic activity/Vol] 13 U/L Normal 13-35 [facility] Comment on above: Order Comment: Speci men Type: BLOOD SPECIMENOrdering Facility: [facility] Address: [address] [place] [address] Performed By: #### 2 132-9, 45001-3, 71194-0 ####[facility] LABIA [id number] [place] [address] [place] Bilirubin [Mass/Vol] 0.3 mg/dL Normal 0.2-1.3 [facility] Comment on above: Order Comment: Speci men Type: BLOOD SPECIMENOrdering Facility: [facility] Address: [address] [place] [address] Performed By: #### 2 132-9, 70397-5, 43555-6 ####[facility] LABIA [id number] [place] [address] [place] Calcium [Mass/Vol] 9.3 mg/dL Normal 8.5-10.2 [facility] Comment on above: Order Comment: Speci men Type: BLOOD SPECIMENOrdering Facility: [facility] Address: [address] [place] [address] Performed By: #### 2 132-9, 64217-9, 69343-5 ####[facility]CLIA [id number] [place] [address] [place] Chloride [Moles/Vol] 108 mmol/L High 98-107 [facility] Comment on above: Order Comment: Speci men Type: BLOOD SPECIMENOrdering Facility: [facility] Address: [address] [place] [address] Performed By: #### 2 132-9, 90320-2, 13506-1 ####[facility] LABIA [id number] [place] [address] [place] CO2 [Moles/Vol] 27 mmol/L Normal 22-30 [facility] Comment on above: Order Comment: Speci men Type: BLOOD SPECIMENOrdering Facility: [facility] Address: [address] [place] [address] Performed By: #### 2 132-9, 80449-4, 84064-9 ####[facility] LABIA [id number] [place] [address] [place] Creatinine [Mass/Vol] 0.56 mg/dL Low 0.58-0.96 [facility] Comment on above: Order Comment: Speci men Type: BLOOD SPECIMENOrdering Facility: [facility] Address: [address] [place] [address] Performed By: #### 2 132-9, 22266-0, 74301-7 ####[facility] LABIA [id number] [place] [address] [place] Creatinine and Glomerular filtration rate.predicted panel (S/P/Bld) 109 mL/min/1.73m??? Normal >=60 [facility] Comment on above: Order Comment: Speci men Type: BLOOD SPECIMENOrdering Facility: [facility] Address: [address] [place] [address] Result Comment: Adrienne mated Glomerular Filtration Rate [...] reflect actual GFR. Performed By: #### 2 132-9, 51872-3, 26623-9 ####[facility] LABCLIA [id number] [address] [address] [place] Glucose [Mass/Vol] 106 mg/dL High 74-99 [facility] Comment on above: Order Comment: Specamy men Type: BLOOD SPECIMENOrdering Facility: [facility] Address: [address] [place] [address] Result Comment: The [place] Diabetes Association (ADA) provides guidance for cutoff [...] Standards of Medical Care in Diabetes 2016, [place] Diabetes [employer]. Diabetes Care. 2016.39(Suppl 1). Performed By: #### 2 132-9, 38004-5, 00798-1 ####[facility] LABIA [id number] [address] [address] [place] Potassium [Moles/Vol] 4.1 mmol/L Normal 3.7-5.1 [facility] Comment on above: Order Comment: Kelly lemus Type: BLOOD SPECIMENOrdering Facility: [facility] Address: [address] [place] [address] Performed By: #### 2 132-9, 99259-8, ####[facility] LABCLIA [id number] [address] [address] [place] Protein [Mass/Vol] 6.7 g/dL Normal 6.3-8.0 [facility] Comment on above: Order Comment: Speci men Type: BLOOD SPECIMENOrdering Facility: [facility] Address: [address] [place] [address] Performed By: #### 2 132-9, 88567-3, 00877-5 ####[facility] LABCLIA [id number] [place] [address] [place] Sodium [Moles/Vol] 145 mmol/L High 136-144 [facility] Comment on above: Order Comment: Speci men Type: BLOOD SPECIMENOrdering Facility: [facility] Address: [address] [place] [address] Performed By: #### 2 132-9, 98115-6, 58488-5 ####[facility] LABIA [id number] [place] [address] [place] Urea nitrogen [Mass/Vol] 11 mg/dL Normal 7-21 [facility] Comment on above: Order Comment: Speci men Type: BLOOD SPECIMENOrdering Facility: [facility] Address: [address] [place] [address] Performed By: #### 2 132-9, 12798-1, 89365-9 ####[facility] LABCLIA [id number] [place] [id number] [place] Iron and Iron binding capaci ty panelon 05-08-2024 Iron [Mass/Vol] 80 ug/dL Normal 41-186 [facility] Comment on above: Order Comment: Speci men Type: BLOOD SPECIMENOrdering Facility: [facility] Address: [address] [place] [address] Performed By: #### 2 132-9, 29038-4, 04317-8 ####[facility] LABCLIA [id number] [place] [address] [place] Iron binding capacity [Mass/Vol] 283 ug/dL Normal 232-386 [facility] Comment on above: Order Comment: Speci men Type: BLOOD SPECIMENOrdering Facility: [facility] Address: [address] [place] [address] Performed By: #### 2 132-9, 38958-6, 42709-4 ####[facility] LABCLIA [id number] [place] [address] [place] Iron/TIBC [Molar ratio] 28.3 % Normal 15.0-57.0 [facility] Comment on above: Order Comment: Speci men Type: BLOOD SPECIMENOrdering Facility: [facility] Address: [address] [place] [address] Performed By: #### 2 132-9, 03996-8, ####[facility] LABCL[facility] [id number] [address] [place] VITAMIN D 25 HYDROXYon 05-08 25-hydroxyvitamin D3 [Mass/Vol] 28.3 ng/mL Low 31.0 - 80.0 ng/mL [facility] Comment on above: Classification of 25 [place] Vitamin D status: Deficiency/Insufficiency: < or = 30 ng/ml. Sufficiency/Optimal Levels: 31-80 ng/mL Toxicity: > 100 ng/mL. Test performed by chemiluminescent immunoassay. Vit B12 [facility] 024 Cobalamin (Vitamin B12) [Mass/Vol] 347 pg/mL Normal 232-1245 [facility] Comment on above: Order Comment: Speci men Type: BLOOD SPECIMENOrdering Facility: [facility] Address: [address] [place] [address] Performed By: #### 2 132-9, 44964-0, 66345-1 ####[facility] [id number] [place] [id number] [place] CNOVon 02-14-[facility] BRYAN CRUZ ([id number]) 1970 F [place] Date Time Provider Department 02/14/24 8:40 AM [facility] During your visit today, we recorded the [...] L4 SAB0 IAB1 Ectopic0 Multiple0 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 NEURO: alert and oriented x3,exam grossly non-focal EXTREMITIES: normal ASSESSMENT/PLAN: 1) Health maintenance: Pap done with HPV. Mammogram up to date Referred to [facility] for hysterectomy consult Symptomatic Fibroids 2) Follow up one year or sooner as needed Adenike Cline MA was present as director gift for the entirety of the exam. Sal [...] malignant neoplasm of breast [Z12.31] Order(s):PAP TEST [[id number]] Order #: [id number]. #:[id number] [id number] SCREENING [[id number]] Order #: [id number] FUTURE CONSULT TO MINIMALLY INVASIVE GYNECOLOGIC SURGERY [[id number]] Order #: [id number]: 1 FUTURE Prescriptions as of 02/14/2024 - ozanimod (ZEPOSIA) 0.92 mg capsule Take 1 capsule by mouth once daily. Obtain blood work for further refills. - pregabalin (LYRICA) 300 mg capsule Take 1 capsule by mouth (more content not included)... Normal [facility] HIGH RISK HUMAN PAPILLOMA KEIKO (HPV), PCR FOR DETECTION AND GENOTYPINGon 02-14-2024 HPV 16 Ag Ql (Unsp spec) Not detected Normal Not detected [facility] Comment on above: Order Comment: Speci men Type: FLUID SPECIMEN [facility] Address: [address] [place] [address] Performed By: #### L [id number], HPVHRT #### [facility] CLIA [id number] [address] [place] [address] [place] HPV 18 Ag Ql (Unsp spec) Not detected Normal Not detected [facility] Comment on above: Order Comment: Speci men Type: FLUID SPECIMEN [facility] Address: [address] [place] [address] Performed By: #### L [id number], HPVHRT #### [facility] CLIA [id number] [address] [place] [address] [place] HPV 31+33+35+39+45+51+52+56 +58+59+66+68 DNA CRISTIAN+probe Ql (Cvx) Not detected Normal Not detected [facility] Comment on above: Order Comment: Speci men Type: FLUID SPECIMEN [facility] Address: [address] [place] [address] Result Comment: High Risk HPV Other Type includes HPV types 31, 33, 35, 39, 45, 51, 52, 56, 58, 59, 66 and 68. Performed By: #### L [id number], HPVHRT #### [facility] CLIA [id number] [address] [place] [address] [place] PAP TESTon 02-14-2024 ADEQUACY Satisfactory for interpretation. Normal [facility] Comment on above: Order Comment: Speci men Type: FLUID SPECIMEN [facility] Address: [address] [place] [address] Performed By: #### L [id number], HPVHRT #### [facility] CLIA [id number] [address] [place] [address] [place] CASE REPORT Normal [facility] Comment on above: Order Comment: Speci men Type: FLUID SPECIMEN [facility] Address: [address] [place] [address] Result Comment: Gyne cologic Cytology Report Case: [id number] Authorizing Provider: Sal Malloy, Collected: 02/14/2024 09:28 AM Ordering Location: OB/Gynecology Received: 02/14/2024 02:19 PM First Screen: Dionne, Gricel, CT, ASCP Specimen: Pap Test, ThinPrep, Cervix Performed By: #### L [id number], HPVHRT #### [facility] CLIA [id number] [address] [place] [address] [place] CLINICAL HISTORY, CYTOLOGY, BISCUIT MACHINE OPERATOR Routine Exam Normal [facility] Comment on above: Order Comment: Speci men Type: FLUID SPECIMEN [facility] Address: [address] [place] [address] Result Comment: Post Menopausal Performed By: #### L [id number], HPVHRT #### [facility] CLIA [id number] [facility] [place] [id number] [place] CYTOLOGY PAP OTHER INT Predominance of coccobacilli consistent with shift in vaginal wyatt Normal [facility] Comment on above: Order Comment: Speci men Type: FLUID SPECIMEN [facility] Address: [address] [place] [address] Performed By: #### L [id number], HPVHRT #### [facility] CLIA [id number] [address] [place] [address] [place] FINAL PERFORMING LAB Normal [facility] Comment on above: Order Comment: Speci men Type: FLUID SPECIMEN [facility] Address: [address] [place] [address] Result Comment: Tech nical component, galvanometer assembler screening performed at [facility], [address] [place] [address] [place] [address] CLIA# [id number] Diagnostic interpretation performed at [facility], [address] [place] [address] [place] [address] CLIA# [id number] Hospitality Team Member: Anil Gage M.D. Performed By: #### L [id number], HPVHRT #### [facility] CLIA [id number] [address] [place] [address] [place] HPV REFLEX Yes HPV Normal [facility] Comment on above: Order Comment: Speci men Type: FLUID SPECIMEN [facility] Address: [address] [place] [address] Performed By: #### L [id number], HPVHRT #### [facility] CLIA [id number] [address] [place] [address] [place] INTERPRETATION, CYTOLOGY, BISCUIT MACHINE OPERATOR Normal [facility] Comment on above: Order Comment: Speci men Type: FLUID SPECIMEN [facility] Address: [address] [place] [address] Result Comment: Nega tive for intraepithelial lesion or malignancy. Performed By: #### L [id number], HPVHRT #### [facility] CLIA [id number] [address] [place] [address] [place] LMP Post Menopausal Normal [facility] Comment on above: Order Comment: Speci men Type: FLUID SPECIMEN [facility] Address: [address] [place] [address] Performed By: #### L [id number], HPVHRT #### [facility] CLIA [id number] [address] [place] [address] [place] PAP DISCLAIMER COMMENT The Pap Smear is a screening test for cervical cancer. False negative results occur with all screening tests, emphasizing the need for rescreening at recommended intervals, and clinical correlation. Normal [facility] Comment on above: Order Comment: Speci men Type: FLUID SPECIMEN [facility] Address: [address] [place] [address] Performed By: #### L [id number], HPVHRT #### [facility] CLIA [id number] [address] [place] [address] [place] PAP GUARD SERGEANT COMMENT This specimen has been analyzed by the ThinPrep Imaging System, an automated imaging and review system, which assists the laboratory in evaluating cells on ThinPrep Pap tests. Following automated imaging, selected leger from every slide are reviewed by a galvanometer assembler. Normal [facility] Comment on above: Order Comment: Speci men Type: FLUID SPECIMEN [facility] Address: [address] [place] [address] Performed By: #### L [id number], HPVHRT #### [facility] CLIA [id number] [address] [place] [address] [place] CNOVon 01-31-2024 CNOV Office Visit ([facility] ) BRYAN CRUZ ([id number]) 1970 F [place] Date Time Provider Department 01/31/24 10:15 AM RAYMOND KEMPSYUNG During your visit today, we recorded the following information about you: Pulse Blood pressure Weight 74/minute 160/77 94.1 kg Raymond Kemp APRN.MAID HOUSEKEEPER 01/31/2024 10:56 AM [facility] FOLLOWUP/ESTABLISHED PATIENT VISIT PRINCIPAL NEUROLOGIC DIAGNOSIS: Multiple [...] therapy yet Neuro-QoL Functions (higher=better functioning) Flowsheet [facility] Office Visit from 07/19/2023 in [facility] Office Visit from 04/18/2023 in [facility] Office Visit from 10/27/2021 in [facility] Upper Extremity Domain T Score 44.53 42.12 42.58 Lower Extremity Domain T Score 40.35 34.04 36.94 Cognitive Function Domain T Score 48.64 46.37 52.55 Positive Affect Well Being T Score -- -- -- Ability To Participate In Social Roles T Score 44.12 33.38 37.21 Satisfaction With Social Roles T Score 41.34 36.98 40.61 Neuro-QoL Symptoms (higher=worse symptoms) Flowsheet [facility] Office Visit from 07/19/2023 in [facility] Office Visit from 04/18/2023 in [facility] Office Visit from 10/27/2021 in [facility] Sleep Domain T Score 57.7 61.86 67.68 Fatigue Domain T Score 56.21 58.38 50.45 Anxiety Domain T Score 48.72 48.87 56.09 Depression Domain T Score 46.25 47.97 55.43 Stigma Domain T Score 36.56 51.87 44.69 Emotional Behavior Dyscontrol T Score -- -- -- has a past medical history of Cocaine use, Depression, Multiple sclerosis ([facility]), Smoking, and Stroke (cerebrum) ([facility]). has a current medication list which includes [...] Years) BMI 40.20 kg/m? MSPT Results Flowsheet [facility] Office Visit from 07/19/2023 in [facility] Office Visit from 04/18/2023 in [facility] Office Visit from 10/27/2021 in [facility] Processing Speed Total Number Correct 45 [...] 5 Biceps 5 5 Triceps 5 5 Runner Worker 5 5 Dorsal interossei 5 5 Lower extremity: Iliopsoas 5 5- Quadriceps 5 5 Hamstrings 5 5 Tibialis anterior 5 5 Gastrocnemius 5 5 Coordination: Upper extremity dexterity and rapid movements: v (more content not included)... Normal [facility] MR BRAIN W AND WO CONTRAST ( [...] MR CERVICAL SPINE W AND WO C [facility] 08-28-2023 MR CERVICAL SPINE W AND WO [...] Coag (Bld) [Time] 28.8 s Normal 26.8-34.8 [facility] Comment on above: Result Comment: IV Heparin Therapy Range: 62.0-94.0 Performed By: #### P TT, PT #### [facility] [address] [place] [address] Pail Tester: Tate Antonio MD aPTT Coag (Bld) [Time] 28.8 s [facility] Comment on above: IV Heparin Therapy Range: 62.0-94.0 CBC with Auto Differentialon 08-13-2023 Basophils (Bld) [#/Vol] B ON [facility] Basophils/100 WBC (Bld) 0 % 0 - 2 % B ON [facility] Eosinophils (Bld) [#/Vol] 0.32 10*3/uL [facility] Eosinophils/100 WBC (Bld) 4 % 1 - 4 % [facility] Erythrocyte distribution width (RBC) [Ratio] 12.4 % 11.8 - 14.4 % [facility] Hematocrit (Bld) [Volume fraction] 42.8 % 36.3 - 47.1 % [facility] Hemoglobin (Bld) [Mass/Vol] 13.4 g/dL 11.9 - 15.1 g/dL [facility] Immature granulocytes (Bld) [#/Vol] 0.03 10*3/uL [facility] Immature granulocytes/100 WBC (Bld) 0 % 0 [facility] Interpretation and review of laboratory results Abnormal [facility] Lymphocytes/100 WBC (Bld) 11 % Low 24 - 43 % [facility] Lymphocytes/100 WBC (Bld) 0.94 % Low [facility] MCH (RBC) [Entitic mass] 30.5 pg 25.2 - 33.5 pg [facility] MCHC (RBC) [Mass/Vol] 31.3 g/dL 28.4 - 34.8 g/dL [facility] MCV (RBC) [Entitic vol] 97.3 fL 82.6 - 102.9 fL [facility] Monocytes/100 WBC (Bld) 10 % 3 - 12 % [facility] Monocytes/100 WBC (Bld) 0.82 % B ON [facility] Neutrophils/100 WBC (Bld) 75 % High 36 - 65 % [facility] Nucleated RBC/100 WBC (Bld) [Ratio] 0.0 % 0.0 per 100 WBC [facility] Platelet mean volume (Bld) [Entitic vol] 10.4 fL 8.1 - 13.5 fL [facility] Platelets (Bld) [#/Vol] 370 10*3/uL [facility] RBC (Bld) [#/Vol] 4.40 10*6/uL 3.95 - 5.1 1 m/uL [facility] Segmented neutrophils/100 WBC (Bld) 6.44 % [facility] WBC other (Bld) [#/Vol] 8.6 B ON [facility] CBC with Diffon 08-13-2023 Abs. Basophil <0.03 Normal 0.00-0.20 [facility] Comment on above: Performed By: #### T ROPI, CDP, MG, CP #### [address] [place] [id number] Pail Tester: Tate Antonio MD Abs.Imm.Granulocyte 0.03 k/uL Normal 0.00-0.30 [facility] Comment on above: Performed By: #### T ROPI, CDP, MG, CP #### [address] [place] [address] Pail Tester: Tate Antonio MD Abs.Neutrophil (Seg) 6.44 k/uL Normal 1.50-8.10 [facility] Comment on above: Performed By: #### T ROPI, CDP, MG, CP #### [address] [place] [address] Pail Tester: Tate Antonio MD Basophils/100 WBC (Bld) 0 % Normal 0-2 [facility] Comment on above: Performed By: #### T ROPI, CDP, MG, CP #### [address] [place] [id number] Pail Tester: Tate Antonio MD Eosinophils (Bld) [#/Vol] 0.32 10*3/uL Normal 0.00-0.44 [facility] Comment on above: Performed By: #### T ROPI, CDP, MG, CP #### [address] [place], [place] [address] Pail Tester: Tate Antonio MD Eosinophils/100 WBC (Bld) 4 % Normal 1-4 [facility] Comment on above: Performed By: #### T ROPI, CDP, MG, CP #### [address] [place], [facility] Pail Tester: Tate Antonio MD Erythrocyte distribution width (RBC) [Ratio] 12.4 % Normal 11.8-14.4 [facility] Comment on above: Performed By: #### T ROPI, CDP, MG, CP #### [address] [place] [address] Pail Tester: Tate Antonio MD Hematocrit (Bld) [Volume fraction] 42.8 % Normal 36.3-47.1 [facility] Comment on above: Performed By: #### T ROPI, CDP, MG, CP #### [address] [place], [place] [address] Pail Tester: Tate Antonio MD Hemoglobin (Bld) [Mass/Vol] 13.4 g/dL Normal 11.9-15.1 [facility] Comment on above: Performed By: #### T ROPI, CDP, MG, CP #### [address] [place], [place] [address] Pail Tester: Tate Antonio MD Immature granulocytes/100 WBC (Bld) 0 % Normal 0 [facility] Comment on above: Performed By: #### T ROPI, CDP, MG, CP #### [address] [place] [id number] Pail Tester: Tate Antonio MD Lymphocytes (Bld) [#/Vol] 0.94 10*3/uL Low 1.10-3.70 [facility] Comment on above: Performed By: #### T ROPI, CDP, MG, CP #### [facility] [address] [place], [place] [id number] Pail Tester: Tate Antonio MD Lymphocytes/100 WBC (Bld) 11 % Low 24-43 [facility] Comment on above: Performed By: #### T ROPI, CDP, MG, CP #### [facility] [address] [place], [facility] Pail Tester: Tate Antonio MD MCH (RBC) [Entitic mass] 30.5 pg Normal 25.2-33.5 [facility] Comment on above: Performed By: #### T ROPI, CDP, MG, CP #### [address] [place] [id number] Pail Tester: Tate Antonio MD MCHC (RBC) [Mass/Vol] 31.3 g/dL Normal 28.4-34.8 [facility] Comment on above: Performed By: #### T ROPI, CDP, MG, CP #### [address] [place], [facility] Pail Tester: Tate Antonio MD MCV (RBC) [Entitic vol] 97.3 fL Normal 82.6-102.9 [facility] Comment on above: Performed By: #### T ROPI, CDP, MG, CP #### [address] [place], [facility] Pail Tester: Tate Antonio MD Monocytes (Bld) [#/Vol] 0.82 10*3/uL Normal 0.10-1.20 [facility] Comment on above: Performed By: #### T ROPI, CDP, MG, CP #### [facility] [address] [place], [place] [id number] Pail Tester: Tate Antonio MD Monocytes/100 WBC (Bld) 10 % Normal 3-12 [facility] Comment on above: Performed By: #### T ROPI, CDP, MG, CP #### [facility] [address] [place], [place] [id number] Pail Tester: Tate Antonio MD Neutrophil (Seg) 75 % High 36-65 [facility] Comment on above: Performed By: #### T ROPI, CDP, MG, CP #### [facility] [address] [place], [facility] Pail Tester: Tate Antonio MD NRBC Automated 0.0 per 100 WBC Normal 0.0 [facility] Comment on above: Performed By: #### T ROPI, CDP, MG, CP #### [address] [place], [facility] Pail Tester: Tate Antonio MD Platelet mean volume (Bld) [Entitic vol] 10.4 fL Normal 8.1-13.5 [facility] Comment on above: Performed By: #### T ROPI, CDP, MG, CP #### [address] [place], [place] [address] Pail Tester: Tate Antonio MD Platelets (Bld) [#/Vol] 370 10*3/uL Normal 138-453 [facility] Comment on above: Performed By: #### T ROPI, CDP, MG, CP #### [address] [place], [place] [address] Pail Tester: Tate Antonio MD RBC (Bld) [#/Vol] 4.40 10*6/uL Normal 3.95-5.11 [facility] Comment on above: Performed By: #### T ROPI, CDP, MG, CP #### [address] [place] [address] Pail Tester: Tate Antonio MD WBC (Bld) [#/Vol] 8.6 10*3/uL Normal 3.5-11.3 [facility] Comment on above: Performed By: #### T BRYANNA, CDP, MG, CP #### [facility] [address] [place] [address] Pail Tester: Tate Antonio MD [facility] 08-13-2023 Albumin [Mass/Vol] 3.9 g/dL 3.5 - 5.2 g/dL [facility] Albumin/Globulin [Mass ratio] 1.5 {ratio} 1.0 - 2.5 [facility] ALP [Catalytic activity/Vol] 122 U/L High 35 - 104 U/L [facility] ALT [Catalytic activity/Vol] 18 U/L 5 - 33 U/L [facility] Anion gap [Moles/Vol] 8 mmol/L Low 9 - 17 mmol/L [facility] AST [Catalytic activity/Vol] 10 U/L NINF - 32 U/L [facility] Bilirubin [Mass/Vol] 0.2 mg/dL Low 0.3 - 1 .2 mg/dL [facility] Calcium [Mass/Vol] 9.0 mg/dL 8.6 - 10. 4 mg/dL [facility] Chloride [Moles/Vol] 105 mmol/L 98 - 10 7 mmol/L [facility] CO2 [Moles/Vol] 29 mmol/L 20 - 31 mmol/L [facility] Creatinine [Mass/Vol] 0.5 mg/dL 0.5 - 0.9 mg/dL [facility] GFR/1.73 sq M.predicted MDRD (S/P/Bld) [Vol rate/Area] - PINF [facility] Comment on above: These results are not [...] 107 mg/dL High 70 - 99 mg/dL [facility] Interpretation and review of laboratory results Abnormal [facility] Potassium [Moles/Vol] 4.0 mmol/L 3.7 - 5.3 mmol/L [facility] Protein [Mass/Vol] 6.5 g/dL 6.4 - 8.3 g/dL [facility] Sodium [Moles/Vol] 142 mmol/L 135 - 144 mmol/L [facility] Urea nitrogen [Mass/Vol] 11 mg/dL 6 - 20 mg/dL [facility] Urea nitrogen/Creatinine [Mass ratio] 22 mg/mg High 9 - [address] [facility] [address] HEAD WO CONTRASTon 2023 CT HEAD [...] MD 08/13/23 Edited Result - FINAL Normal [facility] CT Head WO contraston 2023 Addendum by Prerna Zuniga MD on 08/13/2023 1:32 PM EST ADDENDUM: Findings were communicated to Dr. Cantu by the CORE team on 08/13/2023 at 1:13 pm. [facility] No acute intracrania l abnormality. These results were sent to the CORE Team on 08/13/2023 at 1:07 pm to be communicated to the referring/covering health care provider/office. [facility] EXAMINATION: CT OF THE HEAD WITHOUT CONTRAST [...] of the visualized skull or soft tissues. [facility] Prerna Zuniga MD - 08/13/2023 [...] communicated to the referring/covering health care provider/office. [facility] Radiology Study observation (narrative) [facility] CT Head WO contrastOrdered B y: Prerna Zuniga on 08-13-2023 [facility] Work Phone: CTA HEAD NECK W CONTRASTon [...] stenosis or large vessel occlusion of the zotmes-xi-Pclwjf. Interpreted by: Prerna Zuniga MD Signed by: Prerna Zuniga MD 08/13/23 Final result Normal [facility] CTA Head vessels and Neck ve ssels W contrast Carol 08-13-2023 1. No convincing evidence of a flow limiting stenosis of the visualized cervical carotid/vertebral arteries. 2. No significant stenosis or large vessel occlusion of the vwupqu-ct-Yxvgem. [facility] CONSOL[facility] EXAMINATION: CTA OF THE HEAD [...] BRAIN: No mass effect or midline shift. [facility] Prerna Zuniga MD - 08/13/2023 [...] stenosis or large vessel occlusion of the qdgwly-nw-Ovtiuz. [facility] Radiology Study observation (narrative) [facility] Comp Metabolic Profon 2023 Albumin [Mass/Vol] 3.9 g/dL Normal 3.5-5.2 [facility] Comment on above: Performed By: #### T ROPI, CDP, MG, CP ####[address] , [place] [id number] lab Director: Tate Antonio MD Albumin/Glob Ratio 1.5 Normal 1.0-2.5 [facility] Comment on above: Performed By: #### T ROPI, CDP, MG, CP ####[address] , [place] [id number] lab Director: Tate Antonio MD Alkaline Phos 122 U/L High 35-104 [facility] Comment on above: Performed By: #### T ROPI, CDP, MG, CP ####[address] , [place] [id number] lab Director: Tate Antonio MD ALT [Catalytic activity/Vol] 18 U/L Normal 5-33 [facility] Comment on above: Performed By: #### T ROPI, CDP, MG, CP ####[address] , [place] [address] lab Director: Tate Antonio MD Anion gap [Moles/Vol] 8 mmol/L Low 9-17 [facility] Comment on above: Performed By: #### T ROPI, CDP, MG, CP ####[address] , [place] [id number] lab Director: Tate Antonio MD AST [Catalytic activity/Vol] 10 U/L Normal <32 [facility] Comment on above: Performed By: #### T ROPI, CDP, MG, CP ####[address] , [place] [address] lab Director: Tate Antonio MD Bilirubin [Mass/Vol] 0.2 mg/dL Low 0.3-1.2 [facility] Comment on above: Performed By: #### T ROPI, CDP, MG, CP ####[address] , [place] [id number] lab Director: Tate Antonio MD BUN/CRE Ratio 22 High 9-20 [facility] Comment on above: Performed By: #### T ROPI, CDP, MG, CP ####[address] , [place] [id number] lab Director: Tate Antonio MD Calcium [Mass/Vol] 9.0 mg/dL Normal 8.6-10.4 [facility] Comment on above: Performed By: #### T ROPI, CDP, MG, CP ####[address] , [place] [address] lab Director: Tate Antonio MD Chloride [Moles/Vol] 105 mmol/L Normal 98-107 [facility] Comment on above: Performed By: #### T ROPI, CDP, MG, CP ####[address] , [place] [address] lab Director: Tate Antonio MD CO2 [Moles/Vol] 29 mmol/L Normal 20-31 [facility] Comment on above: Performed By: #### T ROPI, CDP, MG, CP ####[address] , [place] [address] lab Director: Tate Antonio MD Creatinine [Mass/Vol] 0.5 mg/dL Normal 0.5-0.9 [facility] Comment on above: Performed By: #### T ROPI, CDP, MG, CP ####[address] , [place] [id number] lab Director: Tate Antonio MD GFR/1.73 sq M.predicted among non-blacks MDRD (S/P/Bld) [Vol rate/Area] mL/min/{1.73_m2} Normal >60 [facility] Comment on above: Result Comment: These results [...] renal tubular secretion. Performed By: #### T ROPI, CDP, MG, CP ####[address] [place] [address] Lab Director: Tate Antonio MD Glucose [Mass/Vol] 107 mg/dL High 70-99 [facility] Comment on above: Performed By: #### T BRYANNA, CDP, MG, CP ####[address] , [place] [address] Lab Director: Tate Antonio MD Potassium [Moles/Vol] 4.0 mmol/L Normal 3.7-5.3 [facility] Comment on above: Performed By: #### T BRYANNA, CDP, MG, CP ####[address] [place] [address] Lab Director: Tate Antonio MD Protein [Mass/Vol] 6.5 g/dL Normal 6.4-8.3 [facility] Comment on above: Performed By: #### T BRYANNA, CDP, MG, CP ####[address] [place] [address] Lab Director: Tate Antonio MD Sodium [Moles/Vol] 142 mmol/L Normal 135-144 [facility] Comment on above: Performed By: #### T ROPI, CDP, MG, CP ####[address] , [place] [id number] Lab Director: Tate Antonio MD Urea nitrogen [Mass/Vol] 11 mg/dL Normal 6-20 [facility] Comment on above: Performed By: #### T BRYANNA, CDP, MG, CP ####[address] , [place] [phone] Lab Director: Tate Antonio MD Drug Scr, Abuse, Uron 2023 Amphetamine(s),Ur Negative Normal NEG [facility] Comment on above: Result Comment: (Positive cutoff 1000 ng/mL) Performed By: #### D AU #### [address] [place] [address] Pail Tester: Tate Antonio MD Barbiturate(s),Ur Negative Normal NEG [facility] Comment on above: Result Comment: (Positive cutoff 200 ng/mL) Performed By: #### D AU #### [address] [place] [address] Pail Tester: Tate Antonio MD Benzodiazepine(s) Negative Normal NEG [facility] Comment on above: Result Comment: (Positive cutoff 200 ng/mL) Performed By: #### D AU #### [address] [place], [place] [phone] Pail Tester: Tate Antonio MD Buprenorphrine, Ur Negative Normal NEG [facility] Comment on above: Result Comment: (Positive cutoff 5 ng/ml) Performed By: #### D AU #### [address] [place] [address] Pail Tester: Tate Antonio MD Cannabinoid(s),Ur Negative Normal NEG [facility] Comment on above: Result Comment: (Positive cutoff 50 ng/mL) Performed By: #### D AU #### [address] [place], [place] [address] Pail Tester: Tate Antonio MD Cocaine Metabolite Negative Normal [facility] Comment on above: Result Comment: (Positive cutoff 300 ng/mL) Performed By: #### D AU #### [address] [place], [place] 1532583 Pail Tester: Tate Antonio MD Fentanyl, Urine Negative Normal NEG [facility] Comment on above: Result Comment: (Positive cutoff 5 ng/ml) Performed By: #### D AU #### [address] [place], [place] 9656883 Pail Tester: Tate Antonio MD Interpretive Info Assay provides medical screening only. The absence of expected drug(s) and/or Normal [facility] Comment on above: Result Comment: meta bolite(s) may indicate diluted or adulterated urine, limitations of testing or timing of collection. Testing for legal purposes should be confirmed by another method. To request confirmation of test result, please call the lab within 7 days of sample submission. Performed By: #### D AU #### [address] [place] [phone] Pail Tester: Tate Antonio MD Methadone Ql (U) Negative Normal NEG [facility] Comment on above: Result Comment: (Positive cutoff 300 ng/mL) Performed By: #### D AU #### [address] [place] [phone] Pail Tester: Tate Antonio MD Opiate(s), Ur Negative Normal [facility] Comment on above: Result Comment: (Positive cutoff 300 ng/mL) Performed By: #### D AU #### [address] [place] [phone] Pail Tester: Tate Antonio MD Oxycodone, Urine Negative Normal NEG [facility] Comment on above: Result Comment: (Positive cutoff 100 ng/mL) Performed By: #### D AU #### [address] [place], [place] 8805483 Pail Tester: Tate Antonio MD Phencyclidine, Ur Negative Normal NEG [facility] Comment on above: Result Comment: (Positive cutoff 25 ng/mL) Performed By: #### D AU #### [facility] [address] [place] [address] Pail Tester: Tate Antonio MD Drug screen multi urineon [...] limitations of testing or timing of collection. [employer] Comment on above: Testing for legal pu rposes should be confirmed by another method. To request confirmation of test result, please call the lab within 7 days of sample submission. [facility] [employer] MR Brain WO and W contrast I Von 08-13-2023 FLAIR signal abnormalities in the periventricular white matter consistent with patient's history of a demyelinating process. No evidence for active or acute demyelination. [facility] EXAMINATION: MRI OF THE BRAIN WITHOUT [...] The soft tissues demonstrate no acute abnormality. [facility] Mark Nova MD - 08/13/2023 EXAMINATION: MRI [...] No evidence for active or acute demyelination. [facility] Radiology Study observation (narrative) [facility] MR Brain WO and W contrast I VOrdered By: Mark Nova on 08-13-2023 [facility] Work Phone: MRI BRAIN W WO CONTRASTon [...] Mark Nova MD 08/13/23 Final result Normal [facility] Magnesiumon 08-13-2023 Magnesium [Mass/Vol] 1.8 mg/dL Normal 1.6-2.6 [facility] Comment on above: Performed By: #### T CHIPI, CDP, MG, CP ####[facility] [place] [address] Lab Director: Tate Antonio MD Magnesium [Mass/Vol] 1.8 mg/dL 1.6 - 2 .6 mg/dL [facility] Microscopic Urinalysison Epithelial cells LM.HPF (Urine sed) [#/Area] 2 TO 5 [facility] RBC LM.HPF (Urine sed) [#/Area] 2 TO 5 [facility] WBC LM.HPF (Urine sed) [#/Area] 0 TO 2 [facility] No Panel Informationon 08-13 [facility] PTon 08-13-2023 INR Coag (PPP) [Relative time] 0.9 {INR} Normal [facility] Comment on above: Result Comment: Therapeutic Range: Moderate Anticoagulant Intensity: INR = 2.0-3.0 High Anticoagulant Intensity: INR = 2.5-3.5 Performed By: #### P TT, PT #### [facility] [address] [place] [address] Pail Tester: Tate Antonio MD PT Coag (PPP) [Time] 12.5 s Normal 11.9-14.8 [facility] Comment on above: Performed By: #### P TT, PT #### [facility] [address] [place] [address] Pail Tester: Tate Antonio MD Portable XR Chest AP single viewon 08-13-2023 No acute process. [facility] EXAMINATION: ONE XRAY VIEW OF THE CHEST 08/13/2023 12:27 pm COMPARISON: None. HISTORY: ORDERING SYSTEM PROVIDED HISTORY: chest pain TECHNOLOGIST PROVIDED HISTORY: chest pain FINDINGS: The lungs are without acute focal process. There is no effusion or pneumothorax. The cardiomediastinal silhouette is without acute process. The osseous structures are without acute process. [facility] Kehinde Hopper MD - 08/13/2023 EXAMINATION: ONE XRAY VIEW OF THE CHEST 08/13/2023 12:27 pm COMPARISON: None. HISTORY: ORDERING SYSTEM PROVIDED HISTORY: chest pain TECHNOLOGIST PROVIDED HISTORY: chest pain FINDINGS: The lungs are without acute focal process. There is no effusion or pneumothorax. The cardiomediastinal silhouette is without acute process. The osseous structures are without acute process. IMPRESSION: No acute process. [facility] Radiology Study observation (narrative) [facility] Portable XR Chest AP single viewOrdered By: Kehinde Hopper on 08-13-2023 [facility] Work Phone: Protime-INRon 08-13-2023 INR Coag (PPP) [Relative time] 0.9 {INR} [facility] Comment on above: Therapeutic Range: Moderate Anticoagulant Intensity: INR = 2.0-3.0 High Anticoagulant Intensity: INR = 2.5-3.5 PT Coag (PPP) [Time] 12.5 s [facility] Troponinon 08-13-2023 Troponin, High Sens <6 Normal 0-14 [facility] Comment on above: Result Comment: High Sensitivity Troponin values cannot be compared with other Troponin methodologies. Performed By: #### T BRYANNA, CDP, MG, CP #### [facility] [address] [place] [address] Pail Tester: Tate Antonio MD Troponin I.cardiac High sensitivity method [Mass/Vol] ng/L 0 - 14 ng/L [facility] Comment on above: High Sensitivity Tro ponin values cannot be compared with other Troponin methodologies. [facility] UA w/Reflex Cultureon 2023 Bilirubin, SemiQt,Ur Negative Normal NEG [facility] Comment on above: Performed By: #### U MICAO, UAX #### [facility] [address] [place], [place] [phone] Pail Tester: Tate Antonio MD Blood, Urine 2+ Abnormal NEG [facility] Comment on above: Performed By: #### U MICAO, UAX #### [facility] [address] [place] [address] Pail Tester: Tate Antonio MD Clarity (U) Clear Normal CLEAR [facility] Comment on above: Performed By: #### U MICAO, UAX #### [facility] [address] [place] [address] Pail Tester: Tate Antonio MD Color (U) Yellow Normal YEL [facility] Comment on above: Performed By: #### U MICAO, UAX #### [facility] [address] [place], [place] [phone] Pail Tester: Tate Antonio MD Glucose Ql (U) Negative Normal NEG [facility] Comment on above: Performed By: #### U MICAO, UAX #### [facility] [address] [place] [address] Pail Tester: Tate Antonio MD Ketones Ql (U) Negative Normal NEG [facility] Comment on above: Performed By: #### U MICAO, UAX #### [facility] [address] [place] [address] Pail Tester: Tate Antonio MD Leukocyte esterase Test strip Ql (U) Negative Normal NEG [facility] Comment on above: Performed By: #### U MICAO, UAX #### [facility] [address] [place], [place] [phone] Pail Tester: Tate Antonio MD Nitrite,Ur Negative Normal NEG [facility] Comment on above: Performed By: #### U MICAO, UAX #### [facility] [address] [place] [address] [place] [place], [place] [phone] Pail Tester: Tate Antonio MD PH,Ur 6.0 Normal 5.0-9.0 [facility] Comment on above: Performed By: #### U MICAO, UAX #### [facility] [address] [place] [address] [place] [address] Pail Tester: Tate Antonio MD Protein Ql (U) Negative Normal NEG [facility] Comment on above: Performed By: #### U MICAO, UAX #### [address] [place], [place] 3939883 Pail Tester: Tate Antonio MD Spec. [place],Ur 1.015 Normal 1.010-1.020 [facility] Comment on above: Performed By: #### U MICAO, UAX #### [address] [place], [place] 029[address]83 Pail Tester: Tate Antonio MD Urobilinogen,Ur Normal Normal 0.0-1.0 [facility] Comment on above: Performed By: #### U MICAO, UAX #### [address] [place], [facility] Pail Tester: Tate Antonio MD Urinalysis with Reflex to Cu ltureon 08-13-2023 Bilirubin Ql (U) Negative NEGATIVE [facility] Clarity (U) Clear Clear [facility] Color (U) Yellow Yellow [facility] Glucose Test strip (U) [Mass/Vol] Negative NEGATIVE mg/dL [facility] Hemoglobin Auto test strip Ql (U) 2+ Abnormal NEGATIVE [facility] Interpretation and review of laboratory results Abnormal [facility] Ketones (U) [Mass/Vol] Negative NEGAT [place] mg/dL [facility] Leukocyte esterase Test strip Ql (U) Negative NEGATIVE [facility] Nitrite Ql (U) Negative NEGATIVE [facility] pH (U) 6.0 [pH] 5.0 - 9.0 [facility] Protein (U) [Mass/Vol] Negative NEGAT [place] mg/dL [facility] Specific gravity (U) [Rel density] 1.015 1.010 - 1.020 [facility] Urobilinogen Qn (U) Normal 0.0 - 1. 0 EU/dL [facility] Urinalysis,Microon 4 Epithelial cells LM Ql (Urine sed) 2 TO 5 Normal 0-25 [facility] Comment on above: Performed By: #### U MICAO, UAX #### [facility] [address] [place] [address] Pail Tester: Tate Antonio MD Urine RBC's 2 TO 5 Normal 0-2 [facility] Comment on above: Performed By: #### U MICAO, UAX #### [facility] [address] [place] [address] Pail Tester: Tate Antonio MD Urine WBC's 0 TO 2 Normal 0-5 [facility] Comment on above: Performed By: #### U MICAO, UAX #### [facility] [address] [place] [address] Pail Tester: Tate Antonio MD XR CHEST PORTABLEon 08-13-19 [...] Kehinde Hopper MD 08/13/23 Final result Normal [facility] MM diagnostic mammo BI w/CAD on 08-09-2023 MM diagnostic mammo BI w/CAD [facility] Main [place] [address] [place] [address] Ultrasound Report Signed Patient: Bryan Cruz MR#: [id number] : 1970 Acct:[id number] Age/Sex: 52 / F ADM Date: 08/09/23 Loc: OR Room: Type: [facility] Attending Dr: Sandro Hinojosa MD Ordering Provider: Sandro Hinojosa MD Date of Service: 08/09/23 MM/MM diagnostic mammo BI w/CAD: N64.4 ([id number]) US/US breast RT limited: N64.4 Copies to: [...] Nahum Cox M.D.08/09/2023 12:07 PM Dictation Location: [facility] Tech: [employer] Transcribed By: TREE 08/09/23 1207 Dictated By: Nahum Cox DO 08/09/23 1206 Signed By: 08/09/23 1207 Normal [facility] CBCon 07-21-2023 ABSOLUTE BAS 0.0 10*3/uL Normal 0.0-0.2 [facility] ABSOLUTE EOS 0.4 10*3/uL Normal 0.0-0.7 [facility] ABSOLUTE NEUTROPHIL COUNT 6.4 10*3/uL Normal 1.4-6.5 [facility] Basophils/100 WBC (Bld) 0.1 % Normal 0.0-2.0 [facility] DTYPE AUTO DIFF Normal [facility] Eosinophils/100 WBC (Bld) 4.5 % Normal 0.0-11.0 [facility] Lymphocytes (Bld) [#/Vol] 0.8 10*3/uL Low 1.2-3.4 [facility] Lymphocytes/100 WBC (Bld) 9.1 % Low 20.0-55.0 [facility] Monocytes (Bld) [#/Vol] 0.9 10*3/uL High 0.0-0.7 [facility] Monocytes/100 WBC (Bld) 10.5 % High 0.0-10.0 [facility] Neutrophils/100 WBC (Bld) 75.8 % High 37.0-75.0 [facility] Erythrocyte distribution width (RBC) [Ratio] 14.0 % Normal 11.5-14.5 [facility] Hematocrit (Bld) [Volume fraction] 39.3 % Normal 36.0-48.0 [facility] Hemoglobin (Bld) [Mass/Vol] 12.7 g/dL Normal 12.0-16.0 [facility] MCH (RBC) [Entitic mass] 30.5 pg Normal 26.0-35.0 [facility] MCHC (RBC) [Mass/Vol] 32.3 g/dL Normal 27.0-37.0 [facility] MCV (RBC) [Entitic vol] 94.5 fL Normal 80.0-100.0 [facility] Platelet mean volume (Bld) [Entitic vol] 8.2 fL Normal 7.4-11.0 [facility] Platelets (Bld) [#/Vol] 303 10*3/uL Normal 130-400 [facility] RBC (Bld) [#/Vol] 4.16 10*6/uL Normal 4.0-5.4 [facility] WBC (Bld) [#/Vol] 8.5 10*3/uL Normal 3.6-11.0 [facility] CHEM 7 FASTINGon 07-21-2023 Chloride [Moles/Vol] 106 mmol/L Normal 98-107 [facility] Comment on above: Result Comment: Edison miguel note: Triglyceride levels of 600mg/dL or higher may positively bias chloride results by approximately 2.1 mmol CO2 [Moles/Vol] 30 mmol/L Normal 22-30 [facility] Creatinine [Mass/Vol] 0.40 mg/dL Low 0.7-1.2 [facility] EST. GFR, 215 ml/min/1.73sq.m Normal [facility] EST. GFR,Non 177 ml/min/1.73sq.m Normal [facility] GFR Information Average GFR for 50-5 9 years old = 93. Normal [facility] Comment on above: Result Comment: Mason Helper peggy Kidney disease, GFR = <60. Kidney failure, GFR = <15. The GFR estimate is not adjusted for extreme body surface area or acute process, nor has it been validated for women or ethnic groups other than and . Glucose [Mass/Vol] 118 mg/dL High 70-100 [facility] Comment on above: Result Comment: NORMAL <100 mg/dL PREDIABETES 101-126 mg/dL DIABETES 126 mg/dL or higher Potassium [Moles/Vol] 3.6 mmol/L Normal 3.5-5.1 [facility] Sodium [Moles/Vol] 141 mmol/L Normal 137-145 [facility] Urea nitrogen [Mass/Vol] 11 mg/dL Normal 7-[address] [facility] [address] HEAD WITHOUT CONTRASTon 1 09-21-2022 CT [...] maxillary sinus mucosal disease, partially visualized. Normal [facility] URINE MACROSCOPICon 07-21-20 23 Bilirubin Ql (U) Negative Normal NEGATIVE [facility] Clarity (U) CLEAR Normal CLEAR [facility] Color (U) YELLOW Normal YELLOW [facility] Glucose Ql (U) Negative Normal NEGATIVE [facility] pH (U) 6.0 [pH] Normal 5.0-7.0 [facility] URINE HEMOGLOBIN SMALL Abnormal NEGATIVE [facility] URINE KETONE Negative Normal NEGATIVE [facility] URINE LEUKOTEST Negative Normal NEGATIVE [facility] URINE NITRATES Negative Normal NEGATIVE [facility] URINE SPEC GRAVITY 1.010 Normal 1.010-1.025 [facility] URINE TOTAL PROTEIN Negative Normal NEGATIVE [facility] Urobilinogen Qn (U) 0.2 {Faisal'U}/dL Normal 0.2-1.0 [facility] URINE MICROSCOPICon 07-21-20 23 BACTERIA TRACE Abnormal NEGATIVE [facility] CASTS NONE Normal NONE [facility] CRYSTAL NONE Normal NONE [facility] Epithelial cells LM Ql (Urine sed) 1 TO 5 Normal [facility] Mucus Ql (Urine sed) Negative Normal NEGATIVE [facility] URINE COMMENT CULTURE CRITERIA NOT MET, NO CULTURE PERFORMED. Normal [facility] URINE RBC'S 1 TO 5 Normal NEGATIVE [facility] URINE WBC'S Negative Normal NEGATIVE [facility] Urinalysis complete panel (U )on 07-19-2023 Bacteria LM.HPF (Urine sed) [#/Area] Negative Negative /HPF [facility] Bilirubin Ql (U) Negative Negative [facility] Clarity (Unsp spec) Clear Clear [facility] Color (U) Yellow Yellow [facility] Epithelial cells LM.HPF (Urine sed) [#/Area] Few [facility] Glucose Test strip (U) [Mass/Vol] Negative Negative [facility] Hemoglobin Ql (U) Trace Abnormal Negative [facility] Hyaline casts (Urine sed) [#/Area] 0 /[LPF] 0 /LPF [facility] Ketones Ql (U) Negative Negative [facility] Leukocyte esterase Test strip Ql (U) Trace Abnormal Negative [facility] Nitrite Ql (U) Negative Negative [facility] pH (U) 6.0 [pH] <8.5 [facility] Protein (U) [Mass/Vol] Negative Negative Cl [facility] RBC LM.HPF (Urine sed) [#/Area] 0-2 /HPF 0-2 /HPF [facility] Specific gravity (U) [Rel density] 1.012 1.005 - 1.030 [facility] Urobilinogen Ql (U) 0.2 EU/dL 0.2-1.0 EU/dL [facility] WBC LM.HPF (Urine sed) [#/Area] 0-5 /HPF 0-5 /HPF [facility] CBCon 07-02-2023 Erythrocyte distribution width (RBC) [Ratio] 13.0 % Normal 11.8-14.4 [facility] Comment on above: Performed By: #### V D25 ####[place] [address] [place] [address] Lab Director: Akira Gonzalez MD#### CBC, CP ####[address] [place] [address] lab Director: Tate Antonio MD Hematocrit (Bld) [Volume fraction] 41.1 % Normal 36.3-47.1 [facility] Comment on above: Performed By: #### V D25 ####[facility] [address] [place] [address] Lab Director: Akira Gonzalez MD#### CBC, CP ####[address] [place] [address] Lab Director: Tate Antonio MD Hemoglobin (Bld) [Mass/Vol] 12.9 g/dL Normal 11.9-15.1 [facility] Comment on above: Performed By: #### V D25 ####[place] [place] [address] Lab Director: Akira Gonzalez MD#### CBC, CP ####[address] [place], [place] 597[address]83 lab Director: Tate Antonio MD MCH (RBC) [Entitic mass] 30.7 pg Normal 25.2-33.5 [facility] Comment on above: Performed By: #### V D25 ####[address] [address] Lab Director: Akira Gonzalez MD#### CBC, CP ####[address] [place] [address] Lab Director: Tate Antonio MD MCHC (RBC) [Mass/Vol] 31.4 g/dL Normal 28.4-34.8 [facility] Comment on above: Performed By: #### V D25 ####[address] [address] Lab Director: Akira Gonzalez MD#### CBC, CP ####[address] [place], [place] 1708883 Lab Director: Tate Antonio MD MCV (RBC) [Entitic vol] 97.9 fL Normal 82.6-102.9 [facility] Comment on above: Performed By: #### V D25 ####[address] [address] Lab Director: Akira Gonzalez MD#### CBC, CP ####[address] [place], [place] [address]83 Lab Director: Tate Antonio MD NRBC Automated 0.0 per 100 WBC Normal 0.0 [facility] Comment on above: Performed By: #### V D25 ####[address] [place], [place] 2610408 Lab Director: Akira Gonzalez MD#### CBC, CP ####[address] [place] [address] Lab Director: Tate Antonio MD Platelet mean volume (Bld) [Entitic vol] 11.1 fL Normal 8.1-13.5 [facility] Comment on above: Performed By: #### V D25 ####[address] [place], [place] 3139208 Lab Director: Akira Gonzalez MD#### CBC, CP ####[address] [place] [id number]([facility])[phone] Director: Tate Antonio MD Platelets (Bld) [#/Vol] 333 10*3/uL Normal 138-453 [facility] Comment on above: Performed By: #### V D25 ####[address] [place] [address] Lab Director: Akira Gonzalez MD#### CBC, CP ####[address] [place] [address] Lab Director: Tate Antonio MD RBC (Bld) [#/Vol] 4.20 10*6/uL Normal 3.95-5.11 [facility] Comment on above: Performed By: #### V D25 ####[address] [place] [address] Lab Director: Akira Gonzalez MD#### CBC, CP ####[address] [place] [address] Lab Director: Tate Antonio MD WBC (Bld) [#/Vol] 8.1 10*3/uL Normal 3.5-11.3 [facility] Comment on above: Performed By: #### V D25 ####[facility] [place], [place] [phone] Director: Akira Gonzalez MD#### CBC, CP ####[address] [place], [place] [phone])[phone] Director: Tate Antonio MD Comp Metabolic Profon 2022 Albumin [Mass/Vol] 4.1 g/dL Normal 3.5-5.2 [facility] Comment on above: Performed By: #### V D25 ####[address] [place], [place] [phone] Director: Akira Gonzalez MD#### CBC, CP ####[address] [place] [address]([facility])[phone] Director: Tate Antonio MD Albumin/Glob Ratio 1.6 Normal 1.0-2.5 [facility] Comment on above: Performed By: #### V D25 ####[facility] [place], [place] [phone] Director: Akira Gonzalez MD#### CBC, CP ####[address] [place] [address])[phone] Director: Tate Antonio MD Alkaline Phos 137 U/L High 35-104 [facility] Comment on above: Performed By: #### V D25 ####[facility] [address] [place], [place] [phone] Director: Akira Gonzalez MD#### CBC, CP ####[address] [place], [place] [phone])[phone] Director: Tate Antonio MD ALT [Catalytic activity/Vol] 21 U/L Normal 5-33 [facility] Comment on above: Performed By: #### V D25 ####[place] [address] [place], [place] [phone] Director: Akira Gonzalez MD#### CBC, CP ####[address] [place] [address] Lab Director: Tate Antonio MD Anion gap [Moles/Vol] 10 mmol/L Normal 9-17 [facility] Comment on above: Performed By: #### V D25 ####[address] [phone] Director: Akira Gonzalez MD#### CBC, CP ####[address] , [place] 0872783 Lab Director: Tate Antonio MD AST [Catalytic activity/Vol] 13 U/L Normal <32 [facility] Comment on above: Performed By: #### V D25 ####[address] [phone] Director: Akira Gonzalez MD#### CBC, CP ####[address] , [place] 1575283 Lab Director: Tate Antonio MD Bilirubin [Mass/Vol] 0.3 mg/dL Normal 0.3-1.2 [facility] Comment on above: Performed By: #### V D25 ####[address] [phone] Director: Akira Gonzalez MD#### CBC, CP ####[address] , [place] [phone] Lab Director: Tate Antonio MD BUN/CRE Ratio 22 High 9-20 [facility] Comment on above: Performed By: #### V D25 ####[address] [place], [place] [phone])[phone] Director: Akira Gonzalez MD#### CBC, CP ####[address] [place], [place] 9114583 Lab Director: Tate Antonio MD Calcium [Mass/Vol] 9.5 mg/dL Normal 8.6-10.4 [facility] Comment on above: Performed By: #### V D25 ####[address] [phone] Director: Akira Gonzalez MD#### CBC, CP ####[address] [place] [address]([facility])[phone] Director: Tate Antonio MD Chloride [Moles/Vol] 105 mmol/L Normal 98-107 [facility] Comment on above: Performed By: #### V D25 ####[address] [phone] Director: Akira Gonzalez MD#### CBC, CP ####[address] [place] [id number])[phone] Director: Tate Antonio MD CO2 [Moles/Vol] 29 mmol/L Normal 20-31 [facility] Comment on above: Performed By: #### V D25 ####[address] [phone] Director: Akira Gonzalez MD#### CBC, CP ####[address] [place] [address])[phone] Director: Tate Antonio MD Creatinine [Mass/Vol] 0.5 mg/dL Normal 0.5-0.9 [facility] Comment on above: Performed By: #### V D25 ####[address] [place], [place] [phone] Director: Akira Gonzalez MD#### CBC, CP ####[address] [place], [place] [phone] Lab Director: Tate Antonio MD GFR/1.73 sq M.predicted among non-blacks MDRD (S/P/Bld) [Vol rate/Area] mL/min/{1.73_m2} Normal >60 [facility] Comment on above: Result Comment: These results [...] tubular secretion. Performed By: #### V D25 ####[address] [address] Lab Director: Akira Gonzalez MD#### ANDREW, CP ####[address] [place], [place] [id number] Lab Director: Tate Antonio MD Glucose [Mass/Vol] 81 mg/dL Normal 70-99 [facility] Comment on above: Performed By: #### V D25 ####[address] [address] Lab Director: Akira Gonzalez MD#### ANDREW, CP ####[address] [place], [place] [phone] Lab Director: Tate Antonio MD Potassium [Moles/Vol] 4.2 mmol/L Normal 3.7-5.3 [facility] Comment on above: Performed By: #### V D25 ####[address] [phone] Director: Akira Gonzalez MD#### CBC, CP ####[address] [place], [place] [phone] Lab Director: Tate Antonio MD Protein [Mass/Vol] 6.7 g/dL Normal 6.4-8.3 [facility] Comment on above: Performed By: #### V D25 ####[facility] [place], [place] [phone] Director: Akira Gonzalez MD#### CBC, CP ####[address] , [place] [phone] Lab Director: Tate Antonio MD Sodium [Moles/Vol] 144 mmol/L Normal 135-144 [facility] Comment on above: Performed By: #### V D25 ####[address] [place], [place] [phone] Director: Akira Gonzalez MD#### CBC, CP ####[address] [place], [place] [phone] Lab Director: Tate Antonio MD Urea nitrogen [Mass/Vol] 11 mg/dL Normal 6-20 [facility] Comment on above: Performed By: #### V D25 ####[address] [place], [place] [phone] Director: Akira Gonzalez MD#### CBC, CP ####[address] [place], [place] [phone] Lab Director: Tate Antonio MD Vitamin D 25 [place]on 07-02-2023 Vitamin D 25 [place] 18.7 ng/mL Low >29.9 [facility] Comment on above: Result Comment: Reference Range: Vitamin D status Range Deficiency <20 ng/mL Mild Deficiency 20-30 ng/mL Sufficiency 30-100 ng/mL Toxicity >100 ng/mL Performed By: #### V D25 ####[facility] [place], [place] [phone] Director: Akira Gonzalez MD#### CBC, CP ####[address]83 lab Director: Tate Antonio MD Alanine aminotransferase [En zymatic activity/volume] in Serum or PlasmaOrdered By: Jaswant Freitas on 04-08-2023 ALT [Catalytic activity/Vol] 14 U/L Normal 7-52 [facility] Comment on above: Performed By: #### C MP, CBC #### [facility] [address] [place] [address] [place] Albumin [Mass/volume] in Ser um or Plasma by Bromocresol green (BCG) dye binding methoOrdered By: Jaswant Freitas on 04-08-2023 Albumin BCG dye [Mass/Vol] 4.0 g/dL 3.5-5.7 [facility] Alkaline phosphatase [Enzyma tic activity/volume] in Serum or PlasmaOrdered By: Jaswant Freitas on 04-08-2023 ALP [Catalytic activity/Vol] 105 U/L High 34-104 [facility] Comment on above: Performed By: #### C MP, CBC #### [address] Amphetamine Screen Ql (U)Ord ered By: Jaswant Freitas on 04-08-2023 Amphetamines Ql (U) Negative Negative [facility] Aspartate aminotransferase [ Enzymatic activity/volume] in Serum or PlasmaOrdered By: Jaswant Freitas on 04-08-2023 AST [Catalytic activity/Vol] 14 U/L Normal 13-39 [facility] Comment on above: Performed By: #### C MP, CBC #### [address] Automated basophil %Ordered By: Jaswant Freitas on 04-08-2023 Basophils/100 WBC (Bld) 0.8 % Normal . [facility] Comment on above: Performed By: #### C MP, CBC #### [place] [phone] [facility] Automated basophil countOrde red By: Jaswant Freitas on 04-08-2023 Basophils (Bld) [#/Vol] 0.1 10*3/uL Normal 0.0-0.2 [facility] Comment on above: Result Comment: PERF ORMED BY: [place] [address] PATHOLOGIST [employer]PER[employer] JESSICA MCMULLEN M.D. Performed By: #### C MP, CBC #### [address] Automated blood monocyte cou ntOrdered By: Jaswant Freitas on 04-08-2023 Monocytes (Bld) [#/Vol] 0.7 10*3/uL Normal 0.0-0.8 [facility] Comment on above: Performed By: #### C MP, CBC #### [address] Automated eosinophil %Ordere d By: Jaswant Freitas on 04-08-2023 Eosinophils/100 WBC (Bld) 0.3 % Normal . [facility] Comment on above: Performed By: #### C MP, CBC #### [address] Automated eosinophil countOr dered By: Jaswant Freitas on 04-08-2023 Eosinophils (Bld) [#/Vol] 0.0 10*3/uL Normal 0.0-0.45 [facility] Comment on above: Performed By: #### C MP, CBC #### [address] Automated erythrocytes count in urine sediment (number/area)Ordered By: Jaswant Freitas on 04-08-2023 RBC Auto (Urine sed) [#/Area] 1-2 [HPF] 0-4 [facility] Automated leukocytes count i n urine sediment (number/area)Ordered By: Jaswant Freitas on 04-08-2023 WBC Auto (Urine sed) [#/Area] 3-4 [HPF] 0-4 [facility] Automated monocyte %Ordered By: Jaswant Freitas on 04-08-2023 Monocytes/100 WBC (Bld) 5.9 % Normal . [facility] Comment on above: Performed By: #### C MP, CBC #### [address] Automated neutrophil %Ordere d By: Jaswant Freitas on 04-08-2023 Neutrophils/100 WBC (Bld) 86.2 % Normal . [facility] Comment on above: Performed By: #### C MP, CBC #### [facility] [address] Automated urine color determ inationOrdered By: Jaswant Freitas on 04-08-2023 Color (U) Yellow Normal Yellow [facility] Comment on above: Order Comment: Name Collection Type:: Clean-Voided Midstream Performed By: #### U RDS, ADDONUAPLUS #### [facility] [address] Barbiturates [Presence] in U rine by Screen methodOrdered By: Jaswant Freitas on 04-08-2023 Barbiturates Screen Ql (U) Negative Negative [facility] Benzodiazepines Screen Ql (U )Ordered By: Jaswant Freitas on 04-08-2023 Benzodiazepines Ql (U) Negative Negative [facility] Benzoylecgonine [Presence] i n Urine by Screen methodOrdered By: Jaswant Freitas on 04-08-2023 Benzoylecgonine Screen Ql (U) Positive Negative [facility] Bilirubin Test strip Ql (U)O rdered By: Jaswant Freitas on 04-08-2023 Bilirubin Ql (U) Negative Negative [facility] Bilirubin.total [Mass/volume ] in Serum or PlasmaOrdered By: Jaswant Freitas on 04-08-2023 Bilirubin [Mass/Vol] 0.5 mg/dL Normal 0.3-1.0 [facility] Comment on above: Performed By: #### C MP, CBC #### [facility] [address] Calcium [Mass/volume] in Ser um or PlasmaOrdered By: Jaswant Freitas on 04-08-2023 Calcium [Mass/Vol] 9.0 mg/dL Normal 8.6-10.3 [facility] Comment on above: Performed By: #### C MP, CBC #### [facility] [address] Cannabinoids [Presence] in U rine by Screen methodOrdered By: Jaswant Freitas on 04-08-2023 Cannabinoids Screen Ql (U) Positive Negative [facility] Comment on above: These are unconfirme d results and should not be used for legal purposes. Drug Cut-Off Concentration: AMPH 1000 ng/mL JACK 200 ng/mL PAXTON 200 ng/mL COCM 300 ng/mL OP 300 ng/mL PCP 25 ng/mL THC 20 ng/mL Carbon dioxide, total [Moles /volume] in Serum or PlasmaOrdered By: Jaswant Freitas on 04-08-2023 CO2 [Moles/Vol] 29.0 mmol/L Normal 21.0-31.0 [facility] Comment on above: Performed By: #### C MP, CBC #### [address] Chloride [Moles/volume] in S real or PlasmaOrdered By: Jaswant Freitas on 04-08-2023 Chloride [Moles/Vol] 104 mmol/L Normal 98-107 [facility] Comment on above: Performed By: #### C MP, CBC #### [address] Complete Blood Count Auto Di ffon 04-08-2023 Mean Corpuscular HGB Conc 33.4 g/dL Normal 32.0-35.0 [facility] Comment on above: Performed By: #### C MP, CBC #### [place] [address] [place] Monocytes/100 WBC (Bld) 14.56 % Normal 0.00-20.00 [facility] Comment on above: Performed By: #### C MP, CBC #### [place] [address] [place] NRBC% 0.1 /100{WBC} Normal 0-0.5 [facility] Comment on above: Performed By: #### C MP, CBC #### [facility] [address] [place] [address] Comprehensive Metabolic Pane jessy 04-08-2023 Albumin [Mass/Vol] 4.0 g/dL Normal 3.5-5.7 [facility] Comment on above: Performed By: #### C MP, CBC #### [place] [address] [place] Creatinine Clr Calc Pharmacy 112.59 Normal [facility] Comment on above: Result Comment: PERF ORMED BY: [place] [address] PATHOLOGIST [employer]PER[employer]OR JESSICA MCMULLEN M.D. Performed By: #### C MP, CBC #### [place] [address] [place] GFR/1.73 sq M.predicted MDRD (S/P/Bld) [Vol rate/Area] mL/min/{1.73_m2} Normal [facility] Comment on above: Performed By: #### C MP, CBC #### [place] [address] [place] Creatinine [Mass/volume] in Serum or PlasmaOrdered By: Jaswant Freitas on 04-08-2023 Creatinine [Mass/Vol] 0.59 mg/dL Low 0.60-1.20 [facility] Comment on above: Performed By: #### C MP, CBC #### [place] [address] [place] Dipstick and Microscopicon 0 04-08-2023 Appearance (U) Clear Normal Clear [facility] Comment on above: Order Comment: Name Collection Type:: Clean-Voided Midstream Performed By: #### U RDS, ADDONUAPLUS #### [place] [address] [place] Bacteria,Urine None Seen Normal None Seen [facility] Comment on above: Order Comment: Name Collection Type:: Clean-Voided Midstream Performed By: #### U RDS, ADDONUAPLUS #### [place] [address] [place] Bilirubin,Urine Negative Normal Negative [facility] Comment on above: Order Comment: Name Collection Type:: Clean-Voided Midstream Performed By: #### U RDS, ADDONUAPLUS #### [facility] [address] [place] [address] [place] Glucose Ql (U) Normal Normal Normal [facility] Comment on above: Order Comment: Name Collection Type:: Clean-Voided Midstream Performed By: #### U RDS, ADDONUAPLUS #### [facility] [address] [place] [address] [place] Hyaline Casts,Urine None Seen Normal 0-8 [facility] Comment on above: Order Comment: Name Collection Type:: Clean-Voided Midstream Result Comment: PERF ORMED BY: [place] [address] PATHOLOGIST [employer] SUPER[employer]OR JESSICA MCMULLEN M.D. Performed By: #### U RDS, ADDONUAPLUS #### [place] [address] [place] Ketones Ql (U) Negative Normal Negative [facility] Comment on above: Order Comment: Name Collection Type:: Clean-Voided Midstream Performed By: #### U RDS, ADDONUAPLUS #### [address] [address] [place] Leukocyte esterase Test strip Ql (U) 1+ High Negative [facility] Comment on above: Order Comment: Name Collection Type:: Clean-Voided Midstream Performed By: #### U RDS, ADDONUAPLUS #### [place] [address] [place] Nitrite,Urine Negative Normal Negative [facility] Comment on above: Order Comment: Name Collection Type:: Clean-Voided Midstream Performed By: #### U RDS, ADDONUAPLUS #### [address] [address] [place] Occult Blood,Urine 1+ High Negative [facility] Comment on above: Order Comment: Name Collection Type:: Clean-Voided Midstream Result Comment: PERF ORMED BY: [place] [address] PATHOLOGIST [employer] SUPER[employer]OR JESSICA MCMULLEN M.D. Performed By: #### U RDS, ADDONUAPLUS #### [place] [address] [place] Protein,Urine Negative Normal Negative [facility] Comment on above: Order Comment: Name Collection Type:: Clean-Voided Midstream Performed By: #### U RDS, ADDONUAPLUS #### [place] [address] [place] RBC,Urine 1-2 Normal 0-4 [facility] Comment on above: Order Comment: Name Collection Type:: Clean-Voided Midstream Performed By: #### U RDS, ADDONUAPLUS #### [address] Specificy [place],Urine 1.003 Normal 1.001-1.030 [facility] Comment on above: Order Comment: Name Collection Type:: Clean-Voided Midstream Performed By: #### U RDS, ADDONUAPLUS #### [place] [address] [place] Squamous Epithelial Cell,Urine 0-1 Normal 0-2 [facility] Comment on above: Order Comment: Name Collection Type:: Clean-Voided Midstream Performed By: #### U RDS, ADDONUAPLUS #### [place] [address] [place] Urobilinogen,Urine Normal Normal Normal [facility] Comment on above: Order Comment: Name Collection Type:: Clean-Voided Midstream Performed By: #### U RDS, ADDONUAPLUS #### [place] [address] [place] WBC,Urine 3-4 Normal 0-4 [facility] Comment on above: Order Comment: Name Collection Type:: Clean-Voided Midstream Performed By: #### U RDS, ADDONUAPLUS #### [place] [address] [place] Drug Screen,Urineon 04-08-20 23 Amphetamine Screen,Urine Negative Normal Negative [facility] Comment on above: Performed By: #### U RDS, ADDONUAPLUS #### [address] Barbiturate Screen,Urine Negative Normal Negative [facility] Comment on above: Performed By: #### U RDS, ADDONUAPLUS #### [address] Benzodiazepines Screen,Urine Negative Normal Negative [facility] Comment on above: Performed By: #### U RDS, ADDONUAPLUS #### [address] Cannabinoid Screen,Urine Positive High Negative [facility] Comment on above: Result Comment: Thes e are unconfirmed results and should not be used for legal purposes. Drug Cut-Off Concentration: AMPH 1000 ng/mL JACK 200 ng/mL PAXTON 200 ng/mL COCM 300 ng/mL OP 300 ng/mL PCP 25 ng/mL THC 20 ng/mL PERFORMED BY: [place] [address] PATHOLOGIST [employer] SUPER[employer]OR JESSICA MCMULLEN M.D. Performed By: #### U RDS, ADDONUAPLUS #### [address] Cocaine Screen,Urine Positive High Negative [facility] Comment on above: Performed By: #### U RDS, ADDONUAPLUS #### [address] Opiate Screen,Urine Negative Normal Negative [facility] Comment on above: Performed By: #### U RDS, ADDONUAPLUS #### [place] [address] [place] Phencyclidine Screen,Urine Negative Normal Negative [facility] Comment on above: Performed By: #### U RDS, ADDONUAPLUS #### [place] [address] [place] Erythrocyte distribution wid th [Ratio] by Automated countOrdered By: Jaswant Freitas on 04-08-2023 Erythrocyte distribution width (RBC) [Ratio] 13.6 % Normal 11.9-15.3 [facility] Comment on above: Performed By: #### C MP, CBC #### [place] [address] [place] Erythrocytes [#/volume] in B lood by Automated countOrdered By: Jaswant Freitas on 04-08-2023 RBC (Bld) [#/Vol] 4.34 10*6/uL Normal 3.60-5.00 [facility] Comment on above: Performed By: #### C MP, CBC #### [facility] [address] [place] [id number] [facility] Glucose [Mass/volume] in Ser um or PlasmaOrdered By: Jaswant Freitas on 04-08-2023 Glucose [Mass/Vol] 115 mg/dL High 70-100 [facility] Comment on above: ADA recommended refe rence rangeRandom Glucose Reference Range is dependent on time and content of last meal. Glucose of more than 200 mg/dL in a nonstressed, ambulatory subject supports the diagnosis of Diabetes Mellitus. Result Comment: [place] om Glucose Reference Range is dependent on time and content of last meal. Glucose of more than 200 mg/dL in a nonstressed, ambulatory subject supports the diagnosis of Diabetes Mellitus. ADA recommended reference range Performed By: #### C MP, CBC #### [address] [address] [facility] Hematocrit [Volume Fraction] of Blood by Automated countOrdered By: Jaswant Freitas on 04-08-2023 Hematocrit (Bld) [Volume fraction] 40.1 % Normal 34.0-46.4 [facility] Comment on above: Performed By: #### C MP, CBC #### [facility] [address] [place] [address] [place] Hemoglobin [Mass/volume] in BloodOrdered By: Jaswant Freitas on 04-08-2023 Hemoglobin (Bld) [Mass/Vol] 13.4 g/dL Normal 11.8-15.4 [facility] Comment on above: Performed By: #### C MP, CBC #### [place] [id number] [facility] Ketones Auto test strip (U) [Mass/Vol]Ordered By: Jaswant Freitas on 04-08-2023 Ketones (U) [Mass/Vol] Negative Negative [facility] Laboratory - UrinalysisOrder ed By: Jaswant Freitas on 04-08-2023 Hyaline casts LM Ql (Urine sed) None seen [LPF] 0-8 [facility] Leukocytes [#/volume] correc alva for nucleated erythrocytes in Blood by Automated counOrdered By: Jaswant Freitas on 04-08-2023 WBC corrected for nucl RBC Auto (Bld) [#/Vol] 11.0 10*3/uL 3.8-11.6 [facility] Leukocytes [#/volume] in Blo od by Automated countOrdered By: Jaswant Freitas on 04-08-2023 WBC (Bld) [#/Vol] 11.0 10*3/uL Normal 3.8-11.6 [facility] Comment on above: Performed By: #### C MP, CBC #### [place] [address] [place] Lymphocytes [#/volume] in Bl ood by Automated countOrdered By: Jaswant Freitas on 04-08-2023 Lymphocytes (Bld) [#/Vol] 0.8 10*3/uL Low 1.00-4.8 [facility] Comment on above: Performed By: #### C MP, CBC #### [facility] [address] [place] [address] [place] Lymphocytes/100 leukocytes i n Blood by Automated countOrdered By: Jaswant Freitas on 04-08-2023 Lymphocytes/100 WBC (Bld) 6.8 % Normal . [facility] Comment on above: Performed By: #### C MP, CBC #### [facility] [address] [place] [address] [place] MCH [Entitic mass] by Automa alva countOrdered By: Jaswant Freitas on 04-08-2023 MCH (RBC) [Entitic mass] 30.9 pg Normal 24.7-34.3 [facility] Comment on above: Performed By: #### C MP, CBC #### [place] [address] [place] MCHC Auto (RBC) [Mass/Vol]Or dered By: Jaswant Freitas on 04-08-2023 MCHC (RBC) [Mass/Vol] 33.4 g/dL 32.0-35.0 [facility] MCV [Entitic volume] by Auto mated countOrdered By: Jaswant Freitas on 04-08-2023 MCV (RBC) [Entitic vol] 92.3 fL Normal 80-100 [facility] Comment on above: Performed By: #### C MP, CBC #### [facility] [address] Monocyte distribution width [Entitic volume] in Blood by AutomatedOrdered By: Jaswant Freitas on 04-08-2023 Monocyte distribution width Auto (Bld) [Entitic vol] 14.56 % 0.00-20.00 [facility] Neutrophils [#/volume] in Bl ood by Automated countOrdered By: Jaswant Freitas on 04-08-2023 Neutrophils (Bld) [#/Vol] 9.5 10*3/uL High 1.8-7.7 [facility] Comment on above: Performed By: #### C MP, CBC #### [facility] [address] [place] [address] Nitrite Test strip Ql (U)Ord ered By: Jaswant Freitas on 04-08-2023 Nitrite Ql (U) Negative Negative [facility] No Panel InformationOrdered By: Jaswant Freitas on 04-08-2023 Estimated GFR (CKD-EPI) > 60.0 mL/Min [facility] Creatinine Clearance (Chem 112.59 [facility] Nucleated erythrocytes [Pres ence] in Blood by Automated countOrdered By: Jaswant Freitas on 04-08-2023 Nucleated RBC Auto Ql (Bld) 0.1 /100{WBC} 0-0.5 [facility] Opiates [Presence] in Urine by Screen methodOrdered By: Jaswant Freitas on 04-08-2023 Opiates Screen Ql (U) Negative Negative [facility] Phencyclidine Screen Ql (U)O rdered By: Jaswant Freitas on 04-08-2023 Phencyclidine Ql (U) Negative Negative [facility] Platelet mean volume [Entiti c volume] in Blood by Automated countOrdered By: Jaswant Freitas on 04-08-2023 Platelet mean volume (Bld) [Entitic vol] 7.7 fL Normal 6.3-10.7 [facility] Comment on above: Performed By: #### C MP, CBC #### [facility] [address] Platelets [#/volume] in Bloo d by Automated countOrdered By: Jaswant Freitas on 04-08-2023 Platelets (Bld) [#/Vol] 357 10*3/uL Normal 150-450 [facility] Comment on above: Performed By: #### C MP, CBC #### [address] Potassium [Moles/volume] in Serum or PlasmaOrdered By: Jaswant Freitas on 04-08-2023 Potassium [Moles/Vol] 3.6 mmol/L Normal 3.5-5.1 [facility] Comment on above: Performed By: #### C MP, CBC #### [address] Protein Auto test strip (U) [Mass/Vol]Ordered By: Jaswant Freitas on 04-08-2023 Protein (U) [Mass/Vol] Negative Negative [facility] Protein [Mass/volume] in Ser um or PlasmaOrdered By: Jaswant Freitas on 04-08-2023 Protein [Mass/Vol] 6.9 g/dL Normal 6.4-8.9 [facility] Comment on above: Performed By: #### C MP, CBC #### [address] Serum globulin measurement b y calculation (mass/volume)Ordered By: Jaswant Freitas on 04-08-2023 Globulin (S) [Mass/Vol] 2.9 g/dL Normal [facility] Comment on above: Performed By: #### C MP, CBC #### [address] Serum or plasma albumin/glob ulin mass ratioOrdered By: Jaswant Freitas on 04-08-2023 Albumin/Globulin [Mass ratio] 1.4 {ratio} Normal [facility] Comment on above: Performed By: #### C MP, CBC #### [facility] [address] Serum or plasma anion gap de terminationOrdered By: Jaswant Freitas on 04-08-2023 Anion gap [Moles/Vol] 9.6 mmol/L Normal 6.0-15.0 [facility] Comment on above: Performed By: #### C MP, CBC #### [facility] [address] [place] [address] Sodium [Moles/volume] in Ser um or PlasmaOrdered By: Jaswant Freitas on 04-08-2023 Sodium [Moles/Vol] 139 mmol/L Normal 136-145 [facility] Comment on above: Performed By: #### C MP, CBC #### [address] Specific gravity Auto test s trip (U) [Rel density]Ordered By: Jaswant Freitas on 04-08-2023 Specific gravity (U) [Rel density] 1.003 1.001-1.030 [facility] Squamous epithelial cells de tection in urine sediment by light microscopyOrdered By: Jaswant Freitas on 04-08-2023 Epithelial cells.squamous LM Ql (Urine sed) 0-1 [HPF] 0-2 [facility] Urea nitrogen [Mass/volume] in Serum or PlasmaOrdered By: Jaswant Freitas on 04-08-2023 Urea nitrogen [Mass/Vol] 8 mg/dL Normal 7-25 [facility] Comment on above: Performed By: #### C GIACOMO, CBC #### [facility] [address] [place] [address] Urine bacteria detection by automated methodOrdered By: Jaswant Freitas on 04-08-2023 Bacteria Auto Ql (U) None seen None Seen [facility] Urine clarity by refractomet ry automatedOrdered By: Jaswant Freitas on 04-08-2023 Clarity Refractometry automated (U) Clear Clear [facility] Urine glucose measurement by automated test strip (mass/volume)Ordered By: Jaswant Freitas on 04-08-2023 Glucose Auto test strip (U) [Mass/Vol] Normal mg/dL Normal [facility] Urine hemoglobin detection b y automated test stripOrdered By: Jaswant Freitas on 04-08-2023 Hemoglobin Auto test strip Ql (U) 1+ Negative [facility] Urine leukocyte esterase det ection by automated test stripOrdered By: Jaswant Freitas on 04-08-2023 Leukocyte esterase Auto test strip Ql (U) 1+ Negative [facility] Urine pH measurement by auto mated test stripOrdered By: Jaswant Freitas on 04-08-2023 pH (U) 6.0 [pH] Normal 5.0-9.0 [facility] Comment on above: Order Comment: Name Collection Type:: Clean-Voided Midstream Performed By: #### U RDS, ADDONUAPLUS #### [address] Urobilinogen Auto test strip (U) [Mass/Vol]Ordered By: Jaswant Freitas on 04-08-2023 Urobilinogen (U) [Mass/Vol] Normal mg/dL Normal [facility] Albumin [Mass/volume] in Ser um or PlasmaOrdered By: Rina Reardon on 10-09-2022 Albumin [Mass/Vol] 3.6 g/dL 3.2-5.5 [facility] Alkaline phosphatase [Enzyma tic activity/volume] in Serum or PlasmaOrdered By: Rina Reardon on 10-09-2022 ALP [Catalytic activity/Vol] 108 U/L 32-92 [facility] Aspartate aminotransferase [ Enzymatic activity/volume] in Serum or PlasmaOrdered By: Rina Reardon on 10-09-2022 AST [Catalytic activity/Vol] 12 U/L 10-42 [facility] Basophils Auto (Bld) [#/Vol] Ordered By: Ellen Gonzáles on 10-09-2022 Basophils (Bld) [#/Vol] 0.0 10*3/uL 0.0-0.2 [facility] Basophils/100 WBC Auto (Bld) Ordered By: Ellen Gonzáles on 10-09-2022 Basophils/100 WBC (Bld) 0.2 % . [facility] Bilirubin.total [Mass/volume ] in Serum or PlasmaOrdered By: Rina Reardon on 10-09-2022 Bilirubin [Mass/Vol] 0.5 mg/dL 0.3-1.2 [facility] Calcium [Mass/volume] in Ser um or PlasmaOrdered By: Rina Reardon on 10-09-2022 Calcium [Mass/Vol] 9.0 mg/dL 8.2-10.2 [facility] Carbon dioxide, total [Moles /volume] in Serum or PlasmaOrdered By: Rina Reardon on 10-09-2022 CO2 [Moles/Vol] 29.0 mmol/L 22.0-30.0 [facility] Chloride [Moles/volume] in S real or PlasmaOrdered By: Rina Reardon on 10-09-2022 Chloride [Moles/Vol] 104 mmol/L 95-114 [facility] Cholesterol [Mass/volume] in Serum or PlasmaOrdered By: Rina Reardon on 10-09-2022 Cholesterol [Mass/Vol] 130 mg/dL 140-[address] [facility] Comment on above: Chol less than 200 m g/dl low riskChol 201-239 mg/dl borderline riskChol 240 mg/dl and greater high risk Cholesterol in LDL Calc [Mas s/Vol]Ordered By: Rina Reardon on 10-09-2022 Cholesterol in LDL [Mass/Vol] 65 mg/dL 0-100 [facility] Comment on above: LDL ATP III CLASSIFI CATIONLDL less than 100 mg/dL OptimalLDL 100-129 mg/dL Near or above optimalLDL 130-159 mg/dL Borderline highLDL 160-189 mg/dL HighLDL greater than 189 mg/dL Very high Cholesterol in VLDL Calc [Ma ss/Vol]Ordered By: Rina Reardon on 10-09-2022 Cholesterol in VLDL [Mass/Vol] 12 mg/dL [facility] Creatinine and Glomerular fi ltration rate.predicted panel (S/P/Bld)Ordered By: Rina Reardon on 10-09-2022 Creatinine [Mass/Vol] 0.58 mg/dL 0.44-1.03 [facility] Eosinophils Auto (Bld) [#/Vo l]Ordered By: Ellen Gonzáles on 10-09-2022 Eosinophils (Bld) [#/Vol] 0.5 10*3/uL 0.0-0.45 [facility] Eosinophils/100 WBC Auto (Bl d)Ordered By: Ellen Gonzáles on 10-09-2022 Eosinophils/100 WBC (Bld) 5.6 % . [facility] Erythrocyte distribution wid th Auto (RBC) [Ratio]Ordered By: Ellen Gonzáles on 10-09-2022 Erythrocyte distribution width (RBC) [Ratio] 13.6 % 11.9-15.3 [facility] Estimated glomerular filtrat ion rate (GFR) non- AmericanOrdered By: Rina Reardon on 10-09-2022 GFR/1.73 sq M.predicted among non-blacks MDRD (S/P/Bld) [Vol rate/Area] > 60 mL/Min [facility] Globulin Calc (S) [Mass/Vol] Ordered By: Rina Reardon on 10-09-2022 Globulin (S) [Mass/Vol] 2.3 g/dL [facility] Glucose [Mass/volume] in Ser um or PlasmaOrdered By: Rina Reardon on 10-09-2022 Glucose [Mass/Vol] 110 mg/dL 70-100 [facility] Comment on above: ADA recommended refe rence rangeRandom Glucose Reference Range is dependent on time and content of last meal. Glucose of more than 200 mg/dL in a nonstressed, ambulatory subject supports the diagnosis of Diabetes Mellitus. Hematocrit Auto (Bld) [Volum e fraction]Ordered By: Ellen Gonzáles on 10-09-2022 Hematocrit (Bld) [Volume fraction] 38.4 % 34.0-46.4 [facility] Hemoglobin [Mass/volume] in BloodOrdered By: Ellen Gonzáles on 10-09-2022 Hemoglobin (Bld) [Mass/Vol] 12.7 g/dL 11.8-15.4 [facility] Leukocytes [#/volume] correc alva for nucleated erythrocytes in Blood by Automated counOrdered By: Ellen Gonzáles on 10-09-2022 WBC corrected for nucl RBC Auto (Bld) [#/Vol] 8.8 10*3/uL 3.8-11.6 [facility] Lymphocytes Auto (Bld) [#/Vo l]Ordered By: Ellen Gonzáles on 10-09-2022 Lymphocytes (Bld) [#/Vol] 1.3 10*3/uL 1.00-4.8 [facility] Lymphocytes/100 WBC Auto (Bl d)Ordered By: Ellen Gonzáles on 10-09-2022 Lymphocytes/100 WBC (Bld) 14.6 % . [facility] MCH Auto (RBC) [Entitic mass ]Ordered By: Ellen Gonzáles on 10-09-2022 MCH (RBC) [Entitic mass] 30.7 pg 24.7-34.3 [facility] MCHC Auto (RBC) [Mass/Vol]Or dered By: Ellen Gonzáles on 10-09-2022 MCHC (RBC) [Mass/Vol] 33.2 g/dL 32.0-35.0 [facility] MCV Auto (RBC) [Entitic vol] Ordered By: Ellen Gonzáles on 10-09-2022 MCV (RBC) [Entitic vol] 92.5 fL 80-100 [facility] Monocytes Auto (Bld) [#/Vol] Ordered By: Ellen Gonzáles on 10-09-2022 Monocytes (Bld) [#/Vol] 0.7 10*3/uL 0.0-0.8 [facility] Monocytes/100 WBC Auto (Bld) Ordered By: Ellen Gonzáles on 10-09-2022 Monocytes/100 WBC (Bld) 7.9 % . [facility] Neutrophils Auto (Bld) [#/Vo l]Ordered By: Ellen Gonzáles on 10-09-2022 Neutrophils (Bld) [#/Vol] 6.3 10*3/uL 1.8-7.7 [facility] Neutrophils/100 WBC Auto (Bl d)Ordered By: Ellen Gonzáles on 10-09-2022 Neutrophils/100 WBC (Bld) 71.7 % . [facility] No Panel InformationOrdered By: Rina Reardon on 10-09-2022 Estimated GFR () > 60 mL/Min [facility] Comment on above: GFR estimated refere nce range: According to KDOQI guidelines, <60 ml/min/1.73m2 is sufficient to diagnose a patient with chronic kidney disease. Pharmacy Creatinine Clearance (Chem N/A [facility] Nucleated erythrocytes [Pres ence] in Blood by Automated countOrdered By: Ellen Gonzáles on 10-09-2022 Nucleated RBC Auto Ql (Bld) 0.2 /100{WBC} 0-0.5 [facility] Platelet mean volume Auto (B ld) [Entitic vol]Ordered By: Ellen Gonzáles on 10-09-2022 Platelet mean volume (Bld) [Entitic vol] 8.7 fL 6.3-10.7 [facility] Platelets Auto (Bld) [#/Vol] Ordered By: Ellen Gonzáles on 10-09-2022 Platelets (Bld) [#/Vol] 329 10*3/uL 150-450 [facility] Potassium [Moles/volume] in Serum or PlasmaOrdered By: Rina Reardon on 10-09-2022 Potassium [Moles/Vol] 4.7 mmol/L 3.5-5.1 [facility] Protein [Mass/volume] in Ser um or PlasmaOrdered By: Rina Reardon on 10-09-2022 Protein [Mass/Vol] 5.9 g/dL 6.1-7.9 [facility] RBC Auto (Bld) [#/Vol]Ordere d By: Ellen Gonzáles on 10-09-2022 RBC (Bld) [#/Vol] 4.15 10*6/uL 3.60-5.00 [facility] Serum or plasma alanine trinidad otransferase measurement without P-5'-P (enzymatic activiOrdered By: Rina Reardon on 10-09-2022 ALT No additional P-5'-P [Catalytic activity/Vol] 17 U/L 10-60 [facility] Serum or plasma albumin/glob ulin mass ratioOrdered By: Rina Reardon on 10-09-2022 Albumin/Globulin [Mass ratio] 1.6 {ratio} [facility] Serum or plasma anion gap de terminationOrdered By: Rina Reardon on 10-09-2022 Anion gap [Moles/Vol] 12.7 mmol/L 6.0-15.[address] [facility] Serum or plasma high density lipoprotein (HDL) cholesterol measurementOrdered By: Rina Reardon on 10-09-2022 Cholesterol in HDL [Mass/Vol] 53 mg/dL 35-85 [facility] Comment on above: HDL CHOL ATP-III CLA SSIFICATION Cardiovascular RiskHDL > or equal to 60 mg/dL LOWHDL < 40 mg/dL HIGH Serum or plasma total choles terol/high density lipoprotein (HDL) cholesterol mass ratOrdered By: Rina Reardon on 10-09-2022 Cholesterol.total/Amy sterol in HDL [Mass ratio] 2.5 {ratio} <5.0 [facility] Sodium [Moles/volume] in Ser um or PlasmaOrdered By: Rina Reardon on 10-09-2022 Sodium [Moles/Vol] 141 mmol/L 136-146 [facility] Triglyceride [Mass/volume] i n Serum or PlasmaOrdered By: Rina Reardon on 10-09-2022 Triglyceride [Mass/Vol] 61 mg/dL 35-149 [facility] Comment on above: TRIG ATP III CLASSIF ICATIONTRIG less than 150 mg/dL NormalTRIG 150-199 mg/dL Borderline highTRIG 200-500 mg/dL High TRIG greater than 500 mg/dL Very highStandard traceable to the Center for Disease Conrtrol and Prevention (CDC) test method. Urea nitrogen [Mass/volume] in Serum or PlasmaOrdered By: Rina Reardon on 10-09-2022 Urea nitrogen [Mass/Vol] 9 mg/dL 9- [facility] WBC Auto (Bld) [#/Vol]Ordere d By: Ellen Gonzáles on 10-09-2022 WBC (Bld) [#/Vol] 8.8 10*3/uL 3.8-11.6 [facility] - Hematology and Cell countsOrdered By: Noy Rivera on 05-23-2022 Nucleated RBC/100 WBC (Bld) [Ratio] 0.0 % 0-0.5 [facility] COVID Quick Testingon 2020 Result Negative [place] [employer] Other Quick Fluon 06-24-2021 Quick Flu [facility] [employer] Other ED Note-Physicianon 08-28-19 ED Note-Physician Basic [...] at home. We did offer to have healthcare social worker speak with her to help arrange other [...] UA With Cult Reflex Medications Administered Given [id number] [F] 1000 mg + NS250 [F] 250 mL, IV Piggyback morphine 2 mg/mL Inj, 4 mg, IV Push Zofran 4 mg/2 mL Injection, 4 mg, IV Push Disposition Plan Patient Discharge Condition Patient leave AGAINST MEDICAL ADVICE patient seen and evaluated by the physician endodontic assistant. Attending physician was present in the emergency department and supervised care. This report was transcribed using voice recognition software. Every effort was made to ensure accuracy, however, inadvertently computerized glaciologist mistakes may be present. Appropriate healthcare PPE was used in evaluating this patient. The patient was placed in a mask. The healthcare provider was wearing mask, gloves, googles and utilizing proper hand hygiene. All equipment was properly cleansed. Discharge Prescription List Prescriptions No active prescription medications Follow-up With When Contact Information Arturo Alcarazdict In 3 days 08/15/2020 EST [facility] [address] [place] [address]- Business (1) [address] [place] [address]- Business (1) Additional Instructions: ROBE MCKEON In 3 days 08/15/2020 EST [address] [place] [address]- Business (1) Additional Instructions: Patient Education Multiple Sclerosis Problem List/Past Medical History Ongoing Smoker Historical None Procedure/Surgical History delivery, None. Medications Inpatient No active inpatient medications Home Lidoderm 5% Patch, 1 patch(es), Topical, Daily, Not taking: no longer takes per patient JRuby Chelsea 325 mg-5 mg oral tablet, 1 tab(s), [...] Lymph Auto: 10.6 % Low (08/12/20 13:47:00) Jennings Auto: 9.5 % (08/12/20 13:47:00) Eos Auto: 3.1 % (08/12/20 13:47:00) Basophil Auto: 0.4 % (08/12/20 13:47:00) Neutro Absolute: 6 E9/L (08/12/20 13:47:00) Lymph Absolute: 0.8 E9/L Low (08/12/20 13:47:00) Jennings Absolute: 0.7 E9/L (08/12/20 13:47:00) Eos Absolute: 0.2 E9/L (08/12/20 13:47:00) Basophil Absolute: 0 E9/L (08/12/20 13:47:00) Glucose Lvl: 87 mg/dL (08/12/20 13:47:00) BUN: 11 mg/dL (08/12/20 13:47:00) Creatinine: 0.6 mg/dL (08/12/20 13:47:00) eGFR: >60 (08/12/20:47:00) eGFR AA: >60 (08/12/20 13:47:00) BUN/Creat Ratio: 18 (08/12/20 13:47:00) Sodium Lvl: 139 mmol/L (08/12/20 13:47:00) Potassium Lvl: 3.8 mmol/L (08/12/20 13:47:00) Chloride: 107 mmol/L (08/12/20 13:47:00) CO2: 25 mmol/L (08/12/20 13:47:00) AGAP: 11 mEq/L (08/12/20 13:47:00) Calcium Lvl: 8.6 mg/dL Low (08/12/20 13:47:00) Troponin: 3.7 pg/mL Low (08/12/20 13:47:00) Diagnostic Results No qualifying data available. Normal [facility] Comment on above: Result Comment: Elec tronically Signed By: Angel Johnson PA-C\.br\Date and Time Signed: 08/12/20 16:52 EST\.br\Electronically Co-Signed By: Wisam Russell MD\.br\Date and Time Co-Signed: 08/28/20 08:45 EST Coding Summary.on 08-13-2020 Coding Summary. CODING DATE: 08/13/2020 FINAL [facility] DSC STATUS: Left Against Medical Advice [...] Revised Date Saved: 08/13/2020 10:47 am Normal [facility] Auto Diffon 08-12-2020 Basophils/100 WBC (Bld) 0.4 % Normal 0.0-2.0 [facility] Comment on above: Order Comment: Order Added by Discern Expert. Performed By: #### 2 389048, 0342871, [id number], 4722959, [id number] #### [facility] [address] [place] [address] Basophils/Leukocytes Auto (Bld) [Pure # fraction] 0.0 E9/L Normal 0.0-0.2 [facility] Comment on above: Order Comment: Order Added by Discern Expert. Performed By: #### 2 035085, 8953829, 98411437, 8360349, [id number] #### [facility] [address] [place] [address] Eosinophils/100 WBC (Bld) 3.1 % Normal 0.0-8.0 [facility] Comment on above: Order Comment: Order Added by Discern Expert. Performed By: #### 2 803433, 7354037, 85850620, 3213212, [id number] #### [facility] [address] [place] [address] Eosinophils/Leukocytes Auto (Bld) [Pure # fraction] 0.2 E9/L Normal 0.0-0.5 [facility] Comment on above: Order Comment: Order Added by Discern Expert. Performed By: #### 2 377800, 2773518, [id number], 1395414, [id number] #### [facility] [address] [place] [address] Lymphocytes/100 WBC (Bld) 10.6 % Low 14.0-50.0 [facility] Comment on above: Order Comment: Order Added by Discern Expert. Performed By: #### 2 265769, 2773489, 43388120, 1038186, 02110039 #### [facility] [address] [place] [address] Lymphocytes/Leukocytes Auto (Bld) [Pure # fraction] 0.8 E9/L Low 1.0-4.0 [facility] Comment on above: Order Comment: Order Added by Discern Expert. Performed By: #### 2 327392, 2977106, 61579115, 2763678, 75674866 #### [facility] [address] [place] [address] Monocytes/100 WBC (Bld) 9.5 % Normal 4.0-14.0 [facility] Comment on above: Order Comment: Order Added by Discern Expert. Performed By: #### 2 624032, 4346095, 58281542, 0127868, [id number] #### [facility] [address] [place] [address] Monocytes/Leukocytes Auto (Bld) [Pure # fraction] 0.7 E9/L Normal 0.2-1.0 [facility] Comment on above: Order Comment: Order Added by Discern Expert. Performed By: #### 2 269700, 5319391, 03302319, 5929121, 76303217 #### [facility] [address] [place] [address] Neutrophils/100 WBC (Bld) 76.4 % High 36.0-75.0 [facility] Comment on above: Order Comment: Order Added by Discern Expert. Performed By: #### 2 268315, 6053136, 45869884, 7033159, 45778673 #### [facility] [address] [place] [address] Neutrophils/Leukocytes Auto (Bld) [Pure # fraction] 6.0 E9/L Normal 2.0-7.5 [facility] Comment on above: Order Comment: Order Added by Discern Expert. Performed By: #### 2 525025, 3504115, 78666190, 6196766, 53890062 #### [facility] [address] [place] [address] BMPon 08-12-2020 Creatinine [Mass/Vol] 0.6 mg/dL Normal 0.5-1.3 [facility] Comment on above: Performed By: #### 2 341366, 9421001, 10139106, 6197451, 99909225 #### [facility] [address] [place] [address] Urea nitrogen [Mass/Vol] 11 mg/dL Normal 5-21 [facility] Comment on above: Performed By: #### 2 634255, 9157181, 94276471, 0613553, [id number] #### [facility] [address] [place] [address] Urea nitrogen/Creatinine [Mass ratio] 18 No Units Normal 10-20 [facility] Comment on above: Performed By: #### 2 469074, 9769281, 68911750, 3810949, 44386019 #### [facility] [address] [place] [address] Anion gap [Moles/Vol] 11 mmol/L Normal 6-16 [facility] Comment on above: Performed By: #### 2 258177, 3240556, 02821396, 2325355, 36763979 #### [facility] [address] [place] [address] Calcium [Mass/Vol] 8.6 mg/dL Low 8.9-11.1 [facility] Comment on above: Performed By: #### 2 044985, 5851504, 28567073, 7659031, 53878589 #### [facility] [address] [place] [address] Chloride [Moles/Vol] 107 mmol/L Normal 101-111 [facility] Comment on above: Performed By: #### 2 397619, 6642838, 82882921, 4565357, 28339861 #### [facility] [address] [place] [address] CO2 [Moles/Vol] 25 mmol/L Normal 21-31 [facility] Comment on above: Performed By: #### 2 426381, 8046302, 73050890, 7151879, 94837374 #### [facility] [address] [place] [address] Glucose [Mass/Vol] 87 mg/dL Normal 55-199 [facility] Comment on above: Result Comment: If t his glucose result represents a fasting glucose, interpretation should refer to the following reference range: 55-99 mg/dL Performed By: #### 2 977211, 9148141, 75560544, 4510301, 69507083 #### [facility] [address] [place] [address] Potassium [Moles/Vol] 3.8 mmol/L Normal 3.5-5.3 [facility] Comment on above: Performed By: #### 2 428759, 2105414, 38043420, 7941159, 79883127 #### [facility] [address] [place] [address] Sodium [Moles/Vol] 139 mmol/L Normal 135-145 [facility] Comment on above: Performed By: #### 2 246153, 2878414, 47022744, 9537298, 45028596 #### [facility] [address] [place] [address] CBC w/ Auto Diffon 1 Erythrocyte distribution width (RBC) [Ratio] 14.6 % High 10.9-14.2 [facility] Comment on above: Performed By: #### 2 828790, 3685782, 86312539, 3710065, 72495124 #### [facility] [address] [place] [address] Hematocrit (Bld) [Volume fraction] 40.0 % Normal 34.0-46.0 [facility] Comment on above: Performed By: #### 2 414198, 3844000, 06373834, 6134666, 93872611 #### [facility] [address] [place] [address] Hemoglobin (Bld) [Mass/Vol] 12.8 g/dL Normal 12.0-16.0 [facility] Comment on above: Performed By: #### 2 618032, 3012453, 56412582, 1970389, 74331419 #### [facility] [address] [place] [address] MCH (RBC) [Entitic mass] 29.4 pg Normal 27.0-34.0 [facility] Comment on above: Performed By: #### 2 508142, 6260430, 02154487, 2460544, 79587242 #### [facility] [address] [place] [address] MCHC (RBC) [Mass/Vol] 31.9 g/dL Normal 31.4-36.0 [facility] Comment on above: Performed By: #### 2 424857, 9457337, 33885326, 8403435, 16261917 #### [facility] [address] [place] [address] MCV (RBC) [Entitic vol] 92.0 fL Normal 80.0-100.0 [facility] Comment on above: Performed By: #### 2 378992, 1645441, 99520026, 0493327, 04127489 #### [facility] [address] [place] [address] Platelet mean volume (Bld) [Entitic vol] 8.5 fL Normal 6.4-10.8 [facility] Comment on above: Performed By: #### 2 345901, 0880588, 71919442, 2792005, 48956487 #### [facility] [address] [place] [address] Platelets (Bld) [#/Vol] 319.0 E9/L Normal 150.0-500.0 [facility] Comment on above: Performed By: #### 2 746187, 0387737, 87462101, 6321972, 56075159 #### [facility] [address] [place] [address] RBC (Bld) [#/Vol] 4.4 E12/L Normal 4.3-5.9 [facility] Comment on above: Performed By: #### 2 472213, 7795003, 77982387, 8765057, 68620768 #### [facility] [address] [place] [address] WBC corrected for nucl RBC Auto (Bld) [#/Vol] 7.8 E9/L Normal 4.0-11.0 [facility] Comment on above: Performed By: #### 2 930349, 5351687, 00720279, 7872136, 77762716 #### [facility] [address] [place] [address] Consent To Leave AMAon 08-12 Consent To Leave AMA [id number]:127 Normal [facility] Discharge Instructionson Discharge Instructions [id number]:127 Normal [facility] ED Clinical Summaryon 2020 ED Clinical Summary [address] [address] ED Clinical Summary Person Information Name: BRYAN CRUZ/[facility]_Favian Age: 49 Years : 1970 Sex: Female Language: [place] Islander PCP: ROBE MCKEON CNP Marital Status: Single [...] 16:44:43 08/12/2020 16:44:43 08/12/2020 16:44:43 AD[address]ESS: [address] [facility] [place] [address] PHYS DOC NOTES: MEDICAL INFORMATION: Prescriptions Given: Medications to Continue with No Changes Other Medications acetaminophen-codeine (Tylenol with Codeine #3 oral tablet) 1 Tablets By Mouth every 6 hours as needed for pain. Refills: 0. acetaminophen-hydroco done (Chelsea 325 mg-5 mg oral tablet) 1 Tablets [...] Follow up: With: Address: When: Arturo Dillard [facility], [address] [place] [address] Business (1) [address] [place] [address] Business (1) In 3 days 08/15/2020 With: Address: When: ROBE MCKEON [address] [place] [address] Business (1) In 3 days 08/15/2020 DIAGNOSIS: Multiple sclerosis exacerbation Normal [facility] ED Patient Education Noteon 08-12-2020 ED [...] it is more common in the northern [place] than in the southern [facility]. RISK FACTORS There is a higher number [...] Document Reviewed: 03/30/2014 ExitCare? Patient Information ?2015 [employer]. This information is not intended to replace advice given to you by your health care provider. Make sure you discuss any questions you have with your health care provider. Normal [facility] ED Patient Summaryon 021 ED Patient Summary [address] [address] Patient Discharge Instructions Person Information Name: BRYAN CRUZ Age: 49 Years Arrival Date: 08/12/2020 13:00:09 Discharge Diagnosis: Multiple sclerosis exacerbation Primary Care Physician: ROBE MCKEON CNP Provider Information Primary Provider: Wisam Russell MD Advanced Feed Mill Manager:Angel Johnson PA-C The exam and treatment you received in the Emergency Department were for an urgent problem and are not intended as complete care. It is important that you follow up with a doctor, nurse practitioner, or physician?s endodontic assistant for ongoing care. If your symptoms [...] Follow-up Instructions: With: Address: When: Arturo Dillard [facility], [address] [place] [address] Business (1) [address] [place] [address] Business (1) In 3 days 08/15/2020 With: Address: When: ROBE MCKEON [address] [place] [address] Business (1) In 3 days 08/15/2020 In the event that this physician does not participate in your insurance network, please consult with your insurance company to find a nearby participating provider. Patient Education Materials: Multiple Sclerosis A MESSAGE TO ALL PATIENTS REGARDING OPIOIDS PRESCRIPTION OPIOIDS: WHAT YOU NEED TO KNOW Prescription opioids can be used to help relieve shswuhqt-yp-wamkoj pain and are often prescribed following a [...] be struggling with addiction, tell your health customer care coordinator and ask for guidance or call [employer]?S National Helpline at 7-242-010-UBTP. n Source: US Department of Health and Human Services/Center for Disease Control & Prevention [facility] Medications Given: Medication Dose Route methylPREDNISolone 1000.00 mg IV Piggyback Right Antecubit Edita morphine 4.00 mg IV Push Right Antecubit [place] ondansetron 4.00 mg IV Push Right Antecubit Edita Medication Information: Medications to Continue with No Changes Other Medications acetaminophen-codeine (Tylenol with Codeine #3 oral tablet) 1 Tablets By Mouth every 6 hours as needed for pain. Refills: 0. acetaminophen-hydroco done (Chelsea 325 mg-5 mg oral tablet) 1 Tablets [...] Information: You may receive a survey from Adrián Salinas asking you to rate your care experience. Your feedback is important and will help us understand what we do well and how we can improve the quality of care we provide to you, your loved ones and our community. It?s an honor to serve you. Thank you for choosing [facility] Patient Education Materials: Multiple Sclerosis Multiple sclerosis [...] [place] than in the southern [facility]. RISK FACTORS There is a higher number [...] Document Reviewed: 03/30/2014 ExitCare? Patient Information ?2015 [employer]. This information is not intended to replace advice given to you by your health care provider. Make sure you discuss any questions you have with your health care provider. NANCY Martinez YASHICKA , have received the following patient education materials/instruction s and have verbalized understanding: Patient Education Materials: Multiple Sclerosis Follow-up Instructions: With: Address: When: Arturo Dillard [facility], [address] [place] [address] Six Apart (1) [address] [place] [address] Six Apart (1) In 3 days 08/15/2020 With: Address: When: ROBE LONDONKELSEY [address] [place] [address] Business (1) In 3 days 08/15/2020 Patient Signature Date Clinician/Nurse Signature Date 08/12/2020 16:44:45 Normal [facility] Rapid COVID Antigen (MC)on 08-12-2020 Rapid COV Int NEG Ctl Pass Normal [facility] Comment on above: Performed By: #### 2 [id number] #### [facility] [address] [place] [address] Rapid COV Int POS Ctl Pass Normal [facility] Comment on above: Performed By: #### 2 [id number] #### [facility] [address] [place] [address] Rapid COVID Ag Not Detected Normal Not Detected [facility] Comment on above: Result Comment: The Whoteveritor? System for Rapid Detection of SARS-CoV-2 is [...] or revoked sooner. Performed By: #### 2 [id number] #### [facility] [address] [place] [address] Employed in Healthcare NO Normal [facility] Comment on above: Performed By: #### 2 [id number] #### [facility] [address] [place] [address] First Test Unknown [facility] Comment on above: Performed By: #### 2 [id number] #### [facility] [address] [place] [address] Hospitalized? YES Normal [facility] Comment on above: Performed By: #### 2 [id number] #### [facility] [address] [place] [address] ICU NO [facility] Comment on above: Performed By: #### 2 [id number] #### [facility] [address] [place] [address] ? NO [facility] Comment on above: Performed By: #### 2 [id number] #### [facility] [address] [place] [address] Resides in a Congregate Care Setting NO [facility] Comment on above: Performed By: #### 2 [id number] #### [facility] [address] [place] [address] Symptomatic as defined by CDC YES Normal [facility] Comment on above: Performed By: #### 2 [id number] #### [facility] [address] [place] [address] Troponin 0 Hr.on 08-12-2020 Troponin I.cardiac [Mass/Vol] 3.70 pg/mL Low 10.10-27.10 [facility] Comment on above: Result Comment: The 95% CI (Confidence Interval) PPV (Positive Predictive Value) for myocardial infarction in females is 38 pg/mL, in males 51 pg/mL. The results should be used in conjunction with clinical conditions of myocardial infarction. (Access High Sensitivity Troponin I Instructions For Use, [employer], March 2018) Performed By: #### 2 [id number] #### [facility] [address] [place] [address] eGFRon 08-12-2020 GFR/1.73 sq M predicted among blacks MDRD (S/P/Bld) [Vol rate/Area] mL/min/{1.73_m2} Normal >=59 [facility] Comment on above: Order Comment: Order added by Discern Expert. Result Comment: eGFR is race adjusted. AA=. Performed By: #### 2 [id number], [id number] ####[facility] [address] [place] [address] GFR/1.73 sq M predicted among non-blacks MDRD (S/P/Bld) [Vol rate/Area] mL/min/{1.73_m2} Normal >=59 [facility] Comment on above: Order Comment: Order added by Discern Expert. Result Comment: Mason Helper peggy kidney disease could be indicated at eGFR's of less than 60 mL/min/1.73m2. Kidney failure is indicated at less than 15 mL/min/1.73m2. Performed By: #### 2 [id number] ####[facility] [address] [place] [address] ED Note-Physicianon 01-27-20 ED Note-Physician Basic Information Time Seen: Camrno IRVING Lavon 01/25/2020 17:01 Chief Complaint Neck injury in July, recent MRI in last 2 weeks, unkown results. Woke this AM with increased pain in neck. 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 C/o numbness in left arm, not new. History of Present Illness Obese 49-year-old -Dutch female who presents to the emergency department [...] pain. She states that she has seen friction paint machine tender, and that they wanted to do injections [...] Appropriate mood & affect. Integumentary: Warm, Dry, [place] Medical Decision Making CT and MRI results were obtained from [facility], these were reviewed and these were scanned [...] TID Follow-up With When Contact Information Alexa Jason In 3 days 01/28/[address] [place] [address]- Business (1) Additional Instructions: Follow-up with your specialist, keep your appointment on . Use the muscle relaxers to help with the muscle spasm. Patient Education Facet Joint Block Radicular Pain Attestation Patient was treated and evaluated by the Physician Ethanol Operations Manager. The attending physician was in the Emergency Department at all times and supervised care. The case was discussed with the attending physician and diagnostics were reviewed as needed. Problem List/Past Medical History Ongoing Smoker Historical None Procedure/Surgical History delivery, None. Medications Inpatient No active inpatient medications Home Lidoderm 5% Patch, 1 patch(es), Topical, Daily Chelsea 325 mg-5 mg oral tablet, 1 tab(s), [...] available. Diagnostic Results No qualifying data available. [facility] Comment on above: Result Comment: Elec tronically Signed By: Lavon Lyno PA-C\.br\Date and Time Signed: 01/26/20 09:11 EDT\.br\Electronically Co-Signed By: Alesha Guzmán DO\.br\Date and Time Co-Signed: 01/27/20 10:04 EDT Coding Summary.on 01-26-2020 Coding Summary. CODING DATE: 01/26/[address] [facility] STATUS: Home (Routine DC) PAYOR: Medicaid EAPG DESCRIPTION 0496 MINOR PHARMACOTHERAPY ADMIT DX: REASON [...] Eboni Patel Date Saved: 01/26/2020 09:23 am [facility] Discharge Instructionson Discharge Instructions [id number] 1.00CD:127 [facility] Consent for Treatmenton 01-05 Consent for Treatment [id number] .00CD:127 [facility] ED Clinical Summaryon 2019 ED Clinical Summary [place] [id number] ED Clinical Summary Person Information Name: BRYAN CRUZ Payam/[facility] Age: 49 Years : 1970 Sex: Female Language: Solomon Islander PCP: Alexa Gomez MD Marital Status: Single [...] 01/25/2020 18:38:42 01/25/2020 18:38:42 01/25/2020 18:38:42 ADDRESS: [address] [place] [id number] PHYS DOC NOTES: MEDICAL INFORMATION: Prescriptions Given: New Medications Printed Prescriptions methocarbamol (Robaxin-750 oral tablet) 1 Tablets By Mouth 3 times a day for 7 Days. Refills: 0. Medications to Continue with No Changes Other Medications acetaminophen-codeine (Tylenol with Codeine #3 oral tablet) 1 Tablets By Mouth every 6 hours as needed for pain. Refills: 0. acetaminophen-hydroco done (Chelsea 325 mg-5 mg oral tablet) 1 Tablets [...] Address: When: [place] [place] [address] Six Apart (1[place] In 3 days 01/28/2020 Comments: Follow-up with your specialist, keep your appointment on . Use the muscle relaxers to help with the muscle spasm. DIAGNOSIS: 1:Chronic cervical pain Normal [facility] ED Patient Education Noteon 01-25-2020 ED [...] are taking, including vitamins, herbs, eyedrops, and lmcy-teg-zhbmlnj medicines and creams. ? ? Previous problems [...] 12/07/2014 Document Reviewed: 05/12/2013 ExitCare? Patient Information ?2014 [employer]. This information is not intended to replace [...] the first months of treatment. Only take ozcj-cwb-gsawjtj or prescription medicines for pain, discomfort, or [...] Document Reviewed: 11/15/2009 ExitCare? Patient Information ?2014 [employer]. This information is not intended to replace advice given to you by your health care provider. Make sure you discuss any questions you have with your health care provider. Normal [facility] ED Patient Summaryon 020 ED Patient Summary [address] [address] Patient Discharge Instructions Person Information Name: BRYAN CRUZ Age: 49 Years Arrival Date: 01/25/2020 16:35:07 Discharge Diagnosis: 1:Chronic cervical pain Primary Care Physician: Alexa Gomez MD Provider Information Primary Provider: Alesha Guzmán DO Advanced Feed Mill Manager:Lavon Lyon PA-C The exam and treatment you received in the Emergency Department were for an urgent problem and are not intended as complete care. It is important that you follow up with a doctor, nurse practitioner, or physician?s endodontic assistant for ongoing care. If your symptoms [...] Instructions: With: Address: When: Alexa Gomez [address] [place], [place] [id number] [facility] (1) In 3 days 01/28/2020 Comments: Follow-up [...] opioids can be used to help relieve axkplgsj-oi-thgjbp pain and are often prescribed following a [...] be struggling with addiction, tell your health customer care coordinator and ask for guidance or call [facility]?S National Helpline at 1-870-071-UOQR. t Source: US Department of Health and Human Services/Center for Disease Control & Prevention [facility] Medications Given: Medication Dose Route [...] needed for pain. Refills: 0. acetaminophen-hydroco done (Chelsea 325 mg-5 mg oral tablet) 1 Tablets By Mouth 3 times a day as needed for pain. Refills: 0. diazepam (Valium 5 mg Tab) 1 Tablets By Mouth 2 times a day. Refills: 0. lidocaine topical (Lidoderm 5% Patch) 1 Patches Topical every day. apply 12 hours on and 12 hours off daily. Refills: 0. Comment: Pharmacy Information: Thank you for choosing [facility] Patient Education Materials: Facet Joint Block The [...] are taking, including vitamins, herbs, eyedrops, and dzkx-yis-jqecnih medicines and creams. ? ? Previous problems [...] Document Reviewed: 05/12/2013 ExitCare? Patient Information ?2015 [employer]. This information is not intended to replace [...] the first months of treatment. Only take taxv-pzl-ntcplbp or prescription medicines for pain, discomfort, or [...] Document Reviewed: 11/15/2009 ExitCare? Patient Information ?2014 [employer]. This information is not intended to replace advice given to you by your health care provider. Make sure you discuss any questions you have with your health care provider. NANCY Martinez YASHICKA , have received the following patient education materials/instruction s and have verbalized understanding: Patient Education Materials: Facet Joint Block; Radicular Pain Follow-up Instructions: With: Address: When: Alexa [place] [address] [facility] (1) In 3 days 01/28/2020 Comments: Follow-up with your specialist, keep your appointment on . Use the muscle relaxers to help with the muscle spasm. Patient Signature Date Clinician/Nurse Signature Date 01/25/2020 18:38:44 [facility] Outside Recordson 01-25-2020 Outside Records [id number]# 1.00CD:127 [facility] CONSULTATIONon 12-08-2019 CONSULTATION CONSULTATION PAIN MANAGEMENT Consultation [...] her neck on a pillow, heat, Tylenol, Chelsea, and Lyrica. The Chelsea and Lyrica are currently being prescribed by [...] Therapy Department. The patient does live in [place] and was referred to this pain clinic in [place]. She denies any loss of bowel or bladder, as well as constant paresthesias to the neck or bilateral upper extremities. She does state she has problems with gripping items. The patient has an appointment with [facility] Performance Test Consultant, Dr. Palma. As of this time, the patient has not had interventional therapy. The patient is tearful in the office today due to talking with the intake nurse in regards to injection therapy. The patient stated that she would not proceed with injection therapy. MEDICATIONS: Tylenol 1,000 mg b.i.d. p.r.n., Chelsea 5/325 mg t.i.d. p.r.n., Lyrica 75 mg [...] care physician. 4. Discussed using Eddie's rub ttwh-gdr-rtsgsyf intermittently with the cream. 5. The patient is to continue to utilize heat therapy for the neck pain. 6. The patient currently is prescribed Chelsea and Lyrica through her primary care physician [...] consult with a spine surgeon at [facility], however, has not done so as of this time. I discussed with the patient that typically the surgeon will want the patient to proceed with injection therapy prior to cervical spine surgery. The cervical MRI was given to me by the nurse at the end of the patient's visit that was faxed over from [facility]. There is of note, in the scan [...] chronic headaches. Dictated by Goran Thacker APRN [facility] Signed and Approved by: GORAN THACKER 12/15/2019 17:10:00 Normal [facility] Vital Signs Date Time Vital Sign Value Performing Clinician Facility 10-09-2024 09:35-0500 Diastolic blood pressure 79 mm[Hg] Raymond Kemp APRN.CNP Work Phone: [facility] 10-09-2024 09:35-0500 Heart rate 61 /min Raymond Kemp APRN.CNP Work Phone: [facility] 10-09-2024 09:35-0500 Systolic blood pressure 172 mm[Hg] Raymond Kemp APRN.CNP Work Phone: [facility] 07-09-2024 06:33-0500 Body temperature 98.6 [degF] John Colunga MD Work Phone: [facility] 07-09-2024 06:33-0500 Diastolic blood pressure 68 mm[Hg] [facility] 07-09-2024 06:33-0500 Heart rate 70 /min John [facility]unga [facility] 07-09-2024 06:33-0500 Respiratory rate 20 /min John Colunga MD Work Phone: [facility] 07-09-2024 06:33-0500 SaO2% (BldA) [Mass fraction] 97 % John Colunga [facility] 07-09-2024 06:33-0500 Systolic blood pressure 137 mm[Hg] John Colunga MD Work Phone: [facility] 07-07-2024 20:23-0500 Body mass index (BMI) [Ratio] 44.6 kg/m2 John Colunga MD Work Phone: [facility] 07-07-2024 20:23-0500 Body weight 100.15 kg John Colunga MD Work Phone: [facility] 07-07-2024 17:29-0500 Body height 149.9 cm John Colunga MD Work Phone: [facility] 07-07-2024 16:03-0500 Heart rate 55 /min John Colunga MD Work Phone: [facility] 06-16-2024 14:24-0500 Body mass index (BMI) [Ratio] 44.05 kg/m2 Freda Hernandez SCABBLER.MAID HOUSEKEEPER Work Phone: [facility] 06-16-2024 14:24-0500 Body weight 102.3 kg Freda Brazofskmelva SCABBLER.MAID HOUSEKEEPER Work Phone: [facility] 06-16-2024 14:24-0500 Diastolic blood pressure 82 mm[Hg] Freda Martinezofrios SCABBLER.MAID HOUSEKEEPER Work Phone: [facility] 06-16-2024 14:24-0500 Systolic blood pressure 138 mm[Hg] Freda Brazofsky SCABBLER.MAID HOUSEKEEPER Work Phone: [facility] 06-05-2024 13:46-0400 Body height 152.4 cm Freda Brazofsky SCABBLER.MAID HOUSEKEEPER Work Phone: [facility] 06-05-2024 13:46-0400 Body mass index (BMI) [Ratio] 43.18 kg/m2 Freda Brazofsky SCABBLER.MAID HOUSEKEEPER Work Phone: [facility] 06-05-2024 13:46-0400 Body weight 100.3 kg Freda Martinezofsky SCABBLER.MAID HOUSEKEEPER Work Phone: [facility] 06-05-2024 13:46-0400 Diastolic blood pressure 64 mm[Hg] Freda Brazofsky SCABBLER.MAID HOUSEKEEPER Work Phone: [facility] 06-05-2024 13:46-0400 Systolic blood pressure 128 mm[Hg] Freda Brazofsky SCABBLER.MAID HOUSEKEEPER Work Phone: [facility] 05-08-2024 09:35-0400 Body mass index (BMI) [Ratio] 41.33 kg/m2 Raymond Kemp SCABBLER.MAID HOUSEKEEPER Work Phone: [facility] 05-08-2024 09:35-0400 Body weight 96 kg Raymond Kemp SCABBLER.MAID HOUSEKEEPER Work Phone: [facility] 05-08-2024 09:35-0400 Diastolic blood pressure 65 mm[Hg] Raymond Kemp SCABBLER.MAID HOUSEKEEPER Work Phone: [facility] 05-08-2024 09:35-0400 Heart rate 64 /min Raymond Kemp SCABBLER.MAID HOUSEKEEPER Work Phone: [facility] 05-08-2024 09:35-0400 Systolic blood pressure 126 mm[Hg] Raymond Kemp SCABBLER.MAID HOUSEKEEPER Work Phone: [facility] 02-14-2024 08:35-0400 Body height 152.4 cm aSl Malloy MD Work Phone: [facility] 02-14-2024 08:35-0400 Body mass index (BMI) [Ratio] 42.15 kg/m2 Sal Malloy MD Work Phone: [facility] 02-14-2024 08:35-0400 Body weight 97.9 kg Sal Malloy MD Work Phone: [facility] 02-14-2024 08:35-0400 Diastolic blood pressure 62 mm[Hg] Sal Malloy MD Work Phone: [facility] 02-14-2024 08:35-0400 Heart rate 66 /min Sal Malloy MD Work Phone: [facility] 02-14-2024 08:35-0400 Systolic blood pressure 130 mm[Hg] Sal Malloy MD Work Phone: [facility] 01-31-2024 10:06-0400 Body mass index (BMI) [Ratio] 40.2 kg/m2 Raymond Kemp SCABBLER.MAID HOUSEKEEPER Work Phone: [facility] 01-31-2024 10:06-0400 Body weight 94.1 kg Raymond Kemp SCABBLER.MAID HOUSEKEEPER Work Phone: [facility] 01-31-2024 10:06-0400 Diastolic blood pressure 77 mm[Hg] Raymond Kemp SCABBLER.MAID HOUSEKEEPER Work Phone: [facility] 01-31-2024 10:06-0400 Heart rate 74 /min Raymond Kemp SCABBLER.MAID HOUSEKEEPER Work Phone: [facility] 01-31-2024 10:06-0400 Systolic blood pressure 160 mm[Hg] Raymond Kemp SCABBLER.MAID HOUSEKEEPER Work Phone: [facility] 09-20-2023 14:02-0500 Body weight 98.3 kg Raymond Kemp SCABBLER.MAID HOUSEKEEPER Work Phone: [facility] 09-20-2023 14:02-0500 Diastolic blood pressure 83 mm[Hg] Raymond Kemp SCABBLER.MAID HOUSEKEEPER Work Phone: [facility] 09-20-2023 14:02-0500 Heart rate 70 /min Raymond Kemp APRN.MAID HOUSEKEEPER Work Phone: [facility] 09-20-2023 14:02-0500 Systolic blood pressure 128 mm[Hg] Raymond Kemp APRN.MAID HOUSEKEEPER Work Phone: [facility] 08-14-2023 13:00-0500 Diastolic blood pressure 74 mm[Hg] [facility] [employer] 08-14-2023 13:00-0500 Heart rate 76 /min [facility] [employer] 08-14-2023 13:00-0500 Systolic blood pressure 132 mm[Hg] [facility] [employer] 08-14-2023 12:20-0500 Body temperature 97 [degF] [facility] [employer] 08-14-2023 12:20-0500 Respiratory rate 20 /min [facility] [employer] 08-13-2023 15:40-0500 Diastolic blood pressure 70 mm[Hg] Jeffery Cantu DO Work Phone: [facility] [employer] 08-13-2023 15:40-0500 SaO2% (BldA) [Mass fraction] 99 % Jeffery Cantu DO Work Phone: [facility] [employer] 08-13-2023 15:40-0500 Systolic blood pressure 113 mm[Hg] Jeffery Cantu DO Work Phone: [facility] [employer] 08-13-2023 14:30-0500 Heart rate 55 /min Jeffery Cantu DO Work Phone: [employer] 08-13-2023 14:30-0500 Respiratory rate 11 /min Jeffery Cantu DO Work Phone: [facility] [employer] 08-13-2023 13:15-0500 Body height 151.1 cm Jeffery Cantu DO Work Phone: [facility] [employer] 08-13-2023 13:15-0500 Body mass index (BMI) [Ratio] 41.71 kg/m2 Jeffery Cantu DO Work Phone: [facility] 08-13-2023 13:15-0500 Body weight 95.25 kg Jeffery Cantu DO Work Phone: [facility] 08-13-2023 12:18-0500 Body temperature 97.39 [degF] Jeffery Cantu DO Work Phone: [facility] 07-19-2023 15:36-0500 Body height 153 cm Sandro Hinojosa MD Work Phone: [facility] 07-19-2023 15:36-0500 Body temperature 97.3 [degF] Sandro Hinojosa MD Work Phone: [facility] 07-19-2023 15:36-0500 Body weight 99.7 kg Sandro Hinojosa MD Work Phone: [facility] 07-19-2023 15:36-0500 Diastolic blood pressure 64 mm[Hg] Sandro Hinojosa MD Work Phone: [facility] 07-19-2023 15:36-0500 Heart rate 65 /min Sandro Hinojosa MD Work Phone: [facility] 07-19-2023 15:36-0500 SaO2% (BldA) [Mass fraction] 100 % Sandro Hinojosa MD Work Phone: [facility] 07-19-2023 15:36-0500 Systolic blood pressure 146 mm[Hg] Sandro Hinojosa MD Work Phone: [facility] 07-19-2023 13:57-0500 Body weight 97.52 kg Raymond Kemp APRN.MAID HOUSEKEEPER Work Phone: [facility] 07-19-2023 13:57-0500 Diastolic blood pressure 56 mm[Hg] Raymond Kemp APRN.MAID HOUSEKEEPER Work Phone: [facility] 07-19-2023 13:57-0500 Heart rate 71 /min Raymond Kemp SCABBLER.MAID HOUSEKEEPER Work Phone: [facility] 07-19-2023 13:57-0500 Systolic blood pressure 112 mm[Hg] Raymond Kemp SCABBLER.MAID HOUSEKEEPER Work Phone: [facility] 04-18-2023 09:20-0400 Body weight 91.17 kg Ellen Rothman MD Work Phone: [facility] 04-18-2023 09:20-0400 Diastolic blood pressure 76 mm[Hg] Ellen Rothman MD Work Phone: [facility] 04-18-2023 09:20-0400 Heart rate 74 /min Ellen Rothman MD Work Phone: [facility] 04-18-2023 09:20-0400 Systolic blood pressure 146 mm[Hg] Ellen Rothman MD Work Phone: [facility] 04-08-2023 07:02-0400 Body height 149.86 cm DO Rina Schwerer Work Phone: [facility] 04-08-2023 07:02-0400 Body temperature 98.3 [degF] DO Rina Schwerer Work Phone: [facility] 04-08-2023 07:02-0400 Body weight 93.44 kg DO Rina Schwerer Work Phone: [facility] 04-08-2023 07:02-0400 Diastolic blood pressure 77 mm[Hg] DO Rina Schwerer Work Phone: [facility] 04-08-2023 07:02-0400 Heart rate 82 /min DO Rina Schwerer Work Phone: [facility] 04-08-2023 07:02-0400 Respiratory rate 16 /min DO Rina Schwerer Work Phone: [facility] 04-08-2023 07:02-0400 SaO2% (BldA) [Mass fraction] 99 % DO Rina Schwerer Work Phone: [facility] 04-08-2023 07:02-0400 Systolic blood pressure 161 mm[Hg] DO Rina Schwerer Work Phone: [facility] 08-17-2022 08:52-0500 Body height 151.8 cm Pacc 2 Work Phone: [facility] 08-17-2022 08:52-0500 Body temperature 97 [degF] Pacc 2 Work Phone: [facility] 08-17-2022 08:52-0500 Body weight 92.53 kg Pacc 2 Work Phone: [facility] 08-17-2022 08:52-0500 Diastolic blood pressure 65 mm[Hg] Pacc 2 Work Phone: [facility] 08-17-2022 08:52-0500 Heart rate 51 /min Pacc 2 Work Phone: [facility] 08-17-2022 08:52-0500 Respiratory rate 16 /min Pacc 2 Work Phone: [facility] 08-17-2022 08:52-0500 SaO2% (BldA) [Mass fraction] 100 % Pacc 2 Work Phone: [facility] 08-17-2022 08:52-0500 Systolic blood pressure 143 mm[Hg] Pacc 2 Work Phone: [facility] 10-27-2021 09:17-0400 Body height 151.1 cm Magdalene Zrenner PA-C Work Phone: [facility] 10-27-2021 09:17-0400 Body weight 92.99 kg Magdalene Zrenner PA-C Work Phone: [facility] 10-27-2021 09:17-0400 Diastolic blood pressure 76 mm[Hg] Magdalene Zrenner PA-C Work Phone: [facility] 10-27-2021 09:17-0400 Heart rate 66 /min Magdalene Zrenner PA-C Work Phone: [facility] 10-27-2021 09:17-0400 Systolic blood pressure 128 mm[Hg] Magdalene Marieenner PA-C Work Phone: [facility] 09-20-2021 13:45-0500 Body height Rina Schwerer Other [facility] Other 09-20-2021 13:45-0500 Body mass index (BMI) [Ratio] 43.06 kg/m2 Rina Schwerer Other [facility] Other 09-20-2021 13:45-0500 Body temperature 95.7 [degF] Rina Schwerer Other [facility] Other 09-20-2021 13:45-0500 Body weight 96.71 kg Rina Schwerer Other [facility] Other 09-20-2021 13:45-0500 Diastolic blood pressure 78 mm[Hg] Rina Schwerer Other [facility] Other 09-20-2021 13:45-0500 SaO2% (BldA) [Mass fraction] 98 % Rina Schwerer Other [facility] Other 09-20-2021 13:45-0500 Systolic blood pressure 108 mm[Hg] Rina Schwerer Other [facility] Other 06-24-2021 10:00-0500 Body height Rina Schwerer Other [facility] Other 06-24-2021 10:00-0500 Body mass index (BMI) [Ratio] 42.61 kg/m2 Rina Schwerer Other [facility] Other 06-24-2021 10:00-0500 Body temperature 96 [degF] Rina Schwerer Other [facility] Other 06-24-2021 10:00-0500 Body weight 95.71 kg Rina Schwerer Other [facility] Other 06-24-2021 10:00-0500 SaO2% (BldA) [Mass fraction] 98 % Rina Schwerer Other [facility] Other 01-25-2021 13:05-0400 Body height 151.77 cm DO Rina Schwerer Work Phone: [facility] 01-25-2021 13:05-0400 Body temperature 98.1 [degF] DO Rina Schwerer Work Phone: [facility] 01-25-2021 13:05-0400 Body weight 101.24 kg DO Rina Schwerer Work Phone: [facility] 01-25-2021 13:05-0400 Diastolic blood pressure 73 mm[Hg] DO Rina Schwerer Work Phone: [facility] 01-25-2021 13:05-0400 Heart rate 65 /min DO Rina Schwerer Work Phone: [facility] 01-25-2021 13:05-0400 Respiratory rate 20 /min DO Rina Schwerer Work Phone: [facility] 01-25-2021 13:05-0400 SaO2% (BldA) [Mass fraction] 100 % DO Rina Reardon Work Phone: [facility] 01-25-2021 13:05-0400 Systolic blood pressure 120 mm[Hg] DO Rina Reardon Work Phone: [facility] Encounters Encounter Date Encounter Type Care Provider Facility Start: 10-10-2024 End: 10-10-2024 Orders Only Raymond Kemp APRN.MAID HOUSEKEEPER Work Phone: [facility] Comment on above: Low serum vitamin B1 2 (Primary Dx); Multiple sclerosis (HCC) Start: 10-09-2024 End: 10-09-2024 ambulatory SANDRO HINOJOSA Facility:[facility] Start: 10-09-2024 End: 10-09-2024 ambulatory RAYMOND KEMP Facility:[facility] Start: 10-09-2024 End: 10-09-2024 Patient encounter procedure Raymond Kemp APRN.MAID HOUSEKEEPER Work Phone: [facility] Comment on above: Multiple sclerosis ( HCC) (Primary Dx); Paresthesias; Elevated hemoglobin A1c; Urinary frequency; Spasticity; Other constipation Start: 09-30-2024 End: 09-30-2024 Specialty Pharmacy Magali Gregory [facility] Comment on above: SPP Neurology - Medi cation Refill (Zeposia) Start: 09-26-2024 End: 10-14-2024 Telephone encounter Raymond Kemp APRN.MAID HOUSEKEEPER Work Phone: Neurology Comment on above: Patient Update; Milka ent Question Start: 09-25-2024 End: 09-25-2024 Refill Raymond Kemp APRN.MAID HOUSEKEEPER Work Phone: [facility] Comment on above: Refill Request Start: 09-04-2024 End: 09-05-2024 Telephone encounter Raymond Kemp APRN.CNP Work Phone: Neurology Comment on above: Letter Start: 08-28-2024 End: 08-28-2024 Specialty Pharmacy Mgaali Gregory [facility] Comment on above: SPP Neurology - Medi cation Refill (Zeposia ) Start: 08-21-2024 End: 08-21-2024 ambulatory Raymond Kemp MAID HOUSEKEEPER Work Phone: [facility] Comment on above: Multiple sclerosis ( HCC) (Primary Dx); Neuropathic pain; Chronic bilateral low back pain without sciatica; Fibroids; Vitamin D deficiency Start: 08-21-2024 End: 08-21-2024 Telemedicine consultation with patient Raymond Kemp APRShardaMAID HOUSEKEEPER Work Phone: [facility] Start: 08-04-2024 End: 08-04-2024 Specialty Pharmacy Magali Gregory [facility] Comment on above: SPP Neurology - Medi cation Refill (Zeposia) Start: 08-01-2024 End: 08-01-2024 Patient encounter procedure Michi Gomez RT(R) Radiology Start: 08-01-2024 End: 08-01-2024 ambulatory Michi Gomez RT(R) Radiology Comment on above: Radiology MRI Start: 08-01-2024 End: 08-01-2024 Subsequent hospital visit by physician Mri [facility] (1.5t) Work Phone: Radiology Comment on above: Multiple sclerosis ( HCC) [G35] Start: 07-15-2024 End: 07-15-2024 Telephone encounter Freda Hernandez APRN.MAID HOUSEKEEPER Work Phone: [facility] Comment on above: Appointment Start: 07-10-2024 End: 07-10-2024 Letter encounter Silvia Hall RN [facility] [address] Start: 07-08-2024 End: 07-11-2024 Telephone encounter Sen Lange MD Work Phone: [facility] (Eye) Residents Start: 07-07-2024 End: 07-10-2024 Evaluation and management of [facility] Facility:[facility] Start: 07-07-2024 End: 07-10-2024 Evaluation and management of inpatient John Colunga MD Work Phone: [facility] [address] Comment on above: Dyspnea, unspecified type (Primary Dx); Bradycardia, unspecified; Multiple sclerosis exacerbation (HCC); Cardiac insufficiency (HCC); Current every day smoker; History of cocaine abuse (HCC); Major depressive disorder in partial remission, unspecified whether recurrent (HCC); Vitamin D deficiency; Hyperlipidemia, unspecified hyperlipidemia type; Mixed hyperlipidemia; Shortness of breath Start: 07-07-2024 Emergency department patient visit UNKNOWN PROVIDER Facility:[facility] Start: 07-04-2024 End: 07-04-2024 Specialty Pharmacy Magali Gregory [facility] Comment on above: SPP Neurology - Medi cation Refill (Zeposia ) Start: 07-02-2024 End: 07-02-2024 Refill Raymond Kemp APRN.[facility] Work Phone: [facility] Comment on above: Refill Request Start: 06-30-2024 End: 06-30-2024 Refill Raymond Kemp APRN.[facility] Work Phone: [facility] Comment on above: Refill Request; Appo intment Request Start: 06-23-2024 End: 06-30-2024 E-mail encounter from caregiver [facility] Provider Internal Medicine Edie Start: 06-23-2024 End: 06-30-2024 Patient encounter procedure [facility] Provider Internal Medicine Marceline Comment on above: Appointment Reschedu le Start: 06-16-2024 End: 06-16-2024 ambulatory SANDRO HINOJOSA Facility:[facility] Start: 06-16-2024 End: 06-16-2024 Office outpatient visit 15 minutes Freda Hernandez APRN.MAID HOUSEKEEPER Work Phone: Gynecology Comment on above: Fibroids (Primary Dx ); Prediabetes Start: 06-10-2024 End: 06-10-2024 ambulatory Plastic Fixture [employer] Work Phone: Gynecology Start: 06-10-2024 End: 06-10-2024 Patient encounter procedure Plastic [employer]xture [employer] [facility] [employer] Work Phone: Gynecology Start: 06-05-2024 End: 06-05-2024 ambulatory SAL MALLOY Facility:[facility] Start: 06-05-2024 End: 06-05-2024 Patient encounter procedure rFeda Hernandez APRN.MAID HOUSEKEEPER Work Phone: Gynecology Comment on above: PMB (postmenopausal bleeding) Start: 06-04-2024 End: 06-04-2024 Patient encounter procedure Michi Gomez RT(R) Radiology Start: 06-04-2024 End: 06-04-2024 ambulatory Michi Gomez RT(R) Radiology Comment on above: Radiology MRI Start: 06-04-2024 End: 06-04-2024 Subsequent hospital visit by physician Rossy [facility] (1.5t) Work Phone: Radiology Comment on above: Multiple sclerosis ( HCC) [G35] Start: 06-02-2024 End: 06-03-2024 Refill Raymond Kemp APRN.CNP Work Phone: [facility] Comment on above: Refill Request Start: 05-26-2024 End: 05-26-2024 Specialty Pharmacy Magali Gregory [facility] Comment on above: SPP Neurology - Medi cation Refill (Zeposia) Start: 05-08-2024 End: 05-08-2024 ambulatory [facility] Facility:[facility] Start: 05-08-2024 End: 05-08-2024 Subsequent hospital visit by physician Laurent [facility] Start: 05-08-2024 End: 05-08-2024 [facility] Facility:[facility] Start: 05-08-2024 End: 05-08-2024 Patient encounter procedure Raymond Kemp APRN.MAID HOUSEKEEPER Work Phone: [facility] Comment on above: Multiple sclerosis ( HCC) (Primary Dx); Pain in joint of right hand; Chronic bilateral low back pain without sciatica; Neuropathic pain; History of dry mouth; Vitamin D deficiency Start: 04-09-2024 End: 04-09-2024 Specialty Pharmacy Magali Gregory [facility] Comment on above: SPP Neurology - Medi cation Refill (Zeposia) Start: 03-13-2024 Specialty Pharmacy Magalianupama Gregory [facility] Comment on above: SPP Neurology - Medi cation Refill (Zeposia) Start: 02-15-2024 End: 02-15-2024 Patient encounter procedure PHYSICIAN NO [facility] [place] Work Phone: Start: 02-15-2024 End: 02-15-2024 ambulatory PHYSICIAN NO [facility] Work Phone: Start: 02-14-2024 End: 02-14-2024 [facility] Facility:[facility] Start: 02-14-2024 End: 02-14-2024 Patient encounter procedure Sal Malloy MD Work Phone: OB/Gynecology Comment on above: Encounter for Papani colaou smear for cervical cancer screening (Primary Dx); Encounter for gynecological examination (general) (routine) without abnormal findings; PMB (postmenopausal bleeding); Encounter for screening mammogram for malignant neoplasm of breast Start: 02-14-2024 End: 02-14-2024 Patient encounter status Sal Malloy MD Work Phone: [facility] Work Phone: Start: 02-05-2024 [facility] Comment on above: SPP Neurology - Medi cation Refill (Zeposia) Start: 02-04-2024 Refill Ellen Rothman MD Work Phone: [facility] Comment on above: Refill Request Start: 01-31-2024 End: 01-31-2024 ambulatory SANDRO SABINO HINOJOSA Facility:[facility] Start: 01-31-2024 End: 01-31-2024 Patient encounter procedure Raymond Kemp APRN.CNP Work Phone: [facility] Comment on above: Multiple sclerosis ( HCC) (Primary Dx); Encounter for medication monitoring; Neuropathic pain; Vitamin D deficiency; Other fatigue; Rash; Snoring; Mixed hyperlipidemia; Spasticity; History of dry mouth Start: 01-10-2024 [facility] Comment on above: SPP Neurology - Medi cation Refill (Zeposia) Start: 12-17-[facility] Start: 11-30-2023 Refill Raymond Kemp SCABBLER.MAID HOUSEKEEPER Work Phone: [facility] Comment on above: Refill Request Start: 11-08-[address] [facility] Comment on above: SPP Neurology - Medi cation Refill (Zeposia) Start: 10-17-2023 Refill Raymond Kemp SCABBLER.MAID HOUSEKEEPER Work Phone: [facility] Comment on above: Refill Request Start: 10-02-[address] [facility] Comment on above: SPP Neurology - Medi cation Refill (Zeposia) Start: 10-01-2023 Refill Ellen Rothman MD Work Phone: [facility] Comment on above: Refill Request Start: 09-28-2023 Telephone encounter Jayshree lo PT Work Phone: [facility] Start: 09-21-2023 Refill Raymond Kemp SCABBLER.MAID HOUSEKEEPER Work Phone: [facility] Comment on above: Med Change Request Start: 09-20-2023 End: 09-20-2023 Patient encounter procedure Raymond Kemp APRN.MAID HOUSEKEEPER Work Phone: [facility] Comment on above: Multiple sclerosis ( HCC) (Primary Dx); Rash Start: 09-20-2023 Refill Raymond Kemp SCABBLER.MAID HOUSEKEEPER Work Phone: [facility] Comment on above: Med Change Request Start: 09-17-2023 Telephone encounter Jahaira Olmos APRN.MAID HOUSEKEEPER Work Phone: Obstetrics/Gynecology Start: 09-07-2023 Telephone encounter Mallika saucedo OT/L Work Phone: [facility]ational Therapy Start: 09-06-2023 Orders Only Raymond Kemp SCABBLER.MAID HOUSEKEEPER Work Phone: [facility] Comment on above: Multiple sclerosis ( HCC) (Primary Dx); Cognitive communication deficit Start: 08-28-2023 End: 08-29-2023 ambulatory PAM ASHER Not Available Start: 08-15-2023 End: 08-16-2023 ambulatory JEFFERY CANTU [facility] Start: 08-14-2023 End: 08-15-[address] [facility] Start: 08-14-2023 End: 08-14-2023 Subsequent hospital visit by physician [facility] Op Treatment Rm 01 [facility] ([facility]) Comment on above: Multiple sclerosis e xacerbation (HCC) (Primary Dx) Start: 08-13-2023 End: 08-13-2023 Emergency department patient visit JEFFERY J [facility] Start: 08-13-2023 End: 08-13-2023 Emergency department patient visit Jeffery Cantu DO Work Phone: [facility] Comment on above: Multiple sclerosis e xacerbation (HCC) (Primary Dx) Start: 08-09-2023 End: 08-09-2023 Patient encounter procedure DO Rina Schaefererer Work Phone: [facility] Work Phone: Start: 08-09-2023 End: 08-09-2023 ambulatory DO Rina Danika Schwerer Work Phone: [facility] Work Phone: Start: 07-21-2023 End: 07-21-2023 Emergency department patient visit [facility] Start: 07-19-2023 End: 07-19-2023 Office outpatient visit 15 minutes Sandro Hinojosa MD Work Phone: Internal Medicine [place] Comment on above: Chronic bilateral lo w back pain without sciatica (Primary Dx); Breast pain in female; Multiple sclerosis (HCC); Current every day smoker; Morbid obesity with BMI of 40.0-44.9, adult (HCC) Start: 07-19-2023 End: 07-19-2023 Patient encounter procedure Raymond Kemp APRN.CNP Work Phone: [facility] Comment on above: Multiple sclerosis ( HCC) (Primary Dx); Demyelinating disease of central nervous system (HCC); Neuropathic pain; Vitamin D deficiency; Spasticity; Constipation, unspecified constipation type; History of dry mouth; Urinary retention Start: 07-05-2023 Specialty Pharmacy Paulo Corey [facility] Comment on above: SPP Neurology - Medi cation Refill (Zeposia ) Start: 07-02-2023 End: 07-03-2023 ambulatory RAN Lassiter [facility] Start: 06-22-2023 Telephone encounter Ellen Rothman MD Work Phone: [facility] Comment on above: Patient Question Start: 06-12-2023 Specialty Pharmacy Paulo Corey [facility] Comment on above: SPP Neurology - Medi cation Refill (Zeposia) Start: 05-22-2023 Telephone encounter Ellen Rothman MD Work Phone: [facility] Comment on above: Orders (MRI Brain/C- Spine) Start: 05-16-2023 Specialty Pharmacy Paulo Corey [facility] Comment on above: SPP Neurology - Medi cation Refill (Zeposia) Start: 04-18-2023 End: 04-18-2023 Patient encounter procedure Ellen Rothman MD Work Phone: [facility] Comment on above: Multiple sclerosis ( HCC) (Primary Dx); Spasticity; Neuropathic pain; Anxiety and depression; Encounter for medication monitoring; Hypovitaminosis D Start: 04-10-2023 Specialty Pharmacy Paulo Corey [facility] Comment on above: SPP Neurology - Medi cation Refill (Zeposia ) Start: 04-08-2023 End: 04-08-2023 Emergency department patient visit DO Rina Schwerer Work Phone: [facility] Work Phone: Start: 04-03-2023 End: 04-03-2023 ambulatory Rina Schwerer Other [employer] Other Start: 04-03-2023 Telephone encounter Ellen Rothman MD Work Phone: [address] [place] [address] Comment on above: lab orders to [facility] (CALL PATIENT WHEN SENT) Start: 03-12-2023 Specialty Pharmacy Paulo Corey [facility] Comment on above: SPP Neurology - Medi cation Refill (Zeposia ) Start: 01-29-2023 Specialty Pharmacy Paulo Corey [facility] Comment on above: SPP Neurology - Medi cation Refill (Zeposia ) Start: 12-25-2022 Refill Roosevelt Fabian Work Phone: [facility] Comment on above: Refill Request Start: 11-23-2022 End: 11-23-2022 ambulatory Nurse Museum Exhibit Designer Work Phone: Gynecology Comment on above: NO SHOW (Primary Dx) Start: 11-23-2022 End: 11-23-2022 Telemedicine consultation with patient Nurse Museum Exhibit Designer Work Phone: [facility] Start: 11-20-2022 Telephone encounter Mindi damico APRN.MAID HOUSEKEEPER Work Phone: Pre Anesthesia Comment on above: Missed Appointment Start: 11-16-2022 Refill Roosevelt Fabian Work Phone: [facility] Comment on above: Refill Request Start: 10-27-2022 Telephone encounter Corbin Wilson MD Work Phone: Gynecology Comment on above: Chief Of Safety And Protection - O ther (P2P w/LH 11/01/ @10am) Future Appointment Start: 10-25-2022 Patient encounter status Ban Mendoza APRN.MAID HOUSEKEEPER Work Phone: Gynecology Start: 10-25-2022 Telephone encounter Katya Mendoza APRN.MAID HOUSEKEEPER Work Phone: Gynecology Comment on above: Orders Start: 10-24-2022 Specialty Pharmacy Paulo Corey [facility] Comment on above: SPP Neurology - Medi cation Refill (Zeposia ) Start: 10-12-2022 End: 10-12-2022 ambulatory Rina Reardon Other [employer] Other Start: 10-12-2022 Telephone encounter Rina Reardon [facility] Start: 10-09-2022 Registered Recurring DO Prema Reardon Work Phone: [facility] Work Phone: Start: 10-09-2022 End: 10-09-2022 ambulatory DO Rina Reardno Work Phone: [facility] Work Phone: Start: 10-09-2022 End: 10-09-2022 Patient encounter procedure DO Rina Reardon Work Phone: [facility] [place] Work Phone: Start: 09-11-2022 End: 09-11-2022 ambulatory Rina Schaeferyadira Other [place] [employer] Other Start: 09-11-2022 Telephone encounter Rina Reardon [facility] Start: 09-04-2022 Specialty Pharmacy Paulo Corey [facility] Comment on above: SPP Neurology - Medi cation Refill (Zeposia ) Start: 08-17-2022 End: 08-17-2022 PAT Pacc [place] 2 Work Phone: Pre Anesthesia Comment on above: Pre-op evaluation (P rimary Dx); Multiple sclerosis (HCC); Mixed hyperlipidemia; Current smoker; Recurrent major depressive disorder, remission status unspecified (HCC); Obesity, Class III, BMI >= 40; Suicidal ideation; History of cocaine abuse (HCC); Cerebrovascular accident (CVA), unspecified mechanism (HCC) Start: 08-17-2022 End: 08-17-2022 Preprocedural examination done Pacc [place] 2 Work Phone: Pre Anesthesia Start: 08-15-2022 Telephone encounter Corbin Wilson MD Work Phone: [facility] Comment on above: Schedule Surgery Start: 08-14-2022 End: 08-14-2022 ambulatory Nurse Museum Exhibit Designer Work Phone: Gynecology Comment on above: Educational circumst ances (Primary Dx) Start: 08-14-2022 End: 08-14-2022 Telemedicine consultation with patient Nurse Museum Exhibit Designer Work Phone: [facility] Start: 08-04-2022 End: 08-04-2022 Patient encounter procedure Corbin Wilson MD Work Phone: Gynecology Comment on above: NO SHOW (Primary Dx) Start: 07-27-2022 Specialty Pharmacy Pualo Corey [facility] Comment on above: SPP Neurology - Medi cation Refill (Zeposia) Start: 06-27-2022 Specialty Pharmacy Magali Gregory [facility] Comment on above: SPP Neurology - Medi cation Refill (Zeposia) Start: 06-12-2022 End: 06-12-2022 ambulatory Rina Reardon Other [place] [employer] Other Start: 06-12-2022 Telephone encounter Rina Reardon [facility] Start: 05-31-2022 [facility] Comment on above: SPP Neurology - Medi cation Refill (Zeposia) Start: 05-15-2022 Refill Roosevelt Fabian Work Phone: [facility] Comment on above: Refill Request Start: 04-26-2022 Specialty Pharmacy Magali Gregory [facility] Comment on above: SPP Neurology - Medi cation Refill (Zeposia) Start: 03-23-2022 Specialty Pharmacy Magali Gregory [facility] Comment on above: SPP Neurology - Medi cation Refill (Zeposia) Start: 03-14-2022 End: 03-14-2022 Patient encounter procedure Corbin Wilson MD Work Phone: Obstetrics/Gynecology Comment on above: NO SHOW (Primary Dx) Start: 02-20-2022 Specialty Pharmacy Magali Gregory [facility] Comment on above: SPP Neurology - Medi cation Refill (Zeposia ) Start: 02-17-2022 End: 02-17-2022 ambulatory Rina Reardon Other [employer] Other Start: 02-17-2022 Telephone encounter Rina Reardon [facility] Start: 02-10-2022 End: 02-10-2022 ambulatory Rina Reardon Other [employer] Other Start: 02-10-2022 Telephone encounter Rina Reardon [facility] Start: 02-07-2022 Telephone encounter Corbin Wilson MD Work Phone: [facility] Comment on above: Patient Question; Re sults Start: 02-02-2022 Telephone encounter Magdalenebenny chavis PA-C Work Phone: Neurology Comment on above: Appointment (m for patient to call so we can get them scheduled for a social work consult) Start: 01-30-2022 Telephone encounter Corbin Wilson MD Work Phone: Gynecology Comment on above: Appointment Start: 01-23-2022 Refill Roosevelt Fabian Work Phone: [facility] Comment on above: Refill Request Start: 01-17-2022 Specialty Pharmacy [facility]ali [facility] Comment on above: SPP Neurology - Medi cation Refill (Zeposia) Start: 12-21-2021 Refill Ellen Rothman MD Work Phone: [facility] Comment on above: Refill Request Start: 12-02-2021 End: 12-02-2021 Patient encounter procedure Roosevelt Hernandez MD Work Phone: [facility] Comment on above: NO SHOW Start: 11-23-2021 Specialty Pharmacy Paulo Corey [facility] Comment on above: SPP Neurology - Medi cation Refill (Zeposia) Start: 10-27-2021 End: 10-27-2021 Patient encounter procedure Magdalene Drake PA-C Work Phone: [facility] Comment on above: Multiple sclerosis ( HCC) (Primary Dx); Neuropathic pain; Spasticity; Blurry vision, bilateral; Anxiety and depression; Homelessness; Medication monitoring encounter Start: 10-14-2021 End: 10-14-2021 ambulatory Rina Schwerer Other [facility] Other Start: 10-14-2021 Telephone encounter Rina Schwerer [facility] Start: 09-20-2021 End: 09-20-2021 ambulatory Rina Schwerer Other [facility] Other Start: 09-20-2021 Office outpatient vi sit 15 minutes Rina Schwerer [facility] Start: 08-23-2021 End: 08-23-2021 Emergency department patient visit REFERRED SELF Facility:[facility] Start: 08-22-2021 End: 08-22-2021 ambulatory Irna Schwerer Other [facility] Other Start: 08-22-2021 Telephone encounter Rina Schwerer [facility] [employer] Start: 08-16-2021 End: 08-16-2021 ambulatory Rina Schwerer Other [facility] Other Start: 08-16-2021 Telephone encounter Rina Schwerer [facility] [employer] Start: 08-04-2021 End: 08-04-2021 ambulatory Rina Schwerer Other [facility] Other Start: 08-04-2021 Telephone encounter Rina Schwerer [facility] [employer] Start: 07-11-2021 End: 07-11-2021 ambulatory Rina Schwerer Other [facility] Other Start: 07-11-2021 Telephone encounter Rina Schwerer [facility] Start: 07-04-2021 End: 07-04-2021 ambulatory Rina Almeidar Other [facility] Other Start: 07-04-2021 Telephone encounter Rina Reardon [facility] [employer] [facility] [employer] Start: 06-24-2021 End: 06-24-2021 ambulatory Rina Almeidar Other [facility] Other Start: 06-24-2021 Office outpatient vi sit 25 minutes Rina Almeidar [facility] Start: 03-15-2020 Patient encounter procedure AQUILES S HESS Facility:[facility]1 Start: 03-02-2020 Patient encounter procedure AQUILES S HESS Facility:[facility] Start: 02-17-2020 Patient encounter procedure GORAN CLINKER Facility:[facility] Start: 12-08-2019 End: 12-09-2019 Patient encounter procedure GORAN CLINKER Facility:[facility]1 Patient encounter procedure Rina Reardon Other [facility] Other Procedures Date Procedure Procedure Detail Performing Clinician Start: 08-01-2024 BRAIN & CERVICAL SPI NE MRI DISCRETE DATA [facility] Provider Start: 08-01-2024 Mri brain brain stem w/o w/contrast material Raymond Kemp APRN.MAID HOUSEKEEPER Work Phone: Start: 07-10-2024 Assay of magnesium Aleksandar Gillette MD Work Phone: Start: 07-08-2024 25 hydroxy includes fractions if performed Yousif Gillette MD Work Phone: Start: 07-08-2024 Hepatic function [...] Work Phone: Start: 07-07-2024 NT PRO-BNP Yousif Ruby coppola MD Work Phone: Start: 07-07-2024 Troponin I.cardiac [Mass/volume] in Serum or Plasma by Detection limit <= 0.01 ng/mL Master Pappas MD Work Phone: Start: 07-07-2024 Ecg routine ecg w/le ast 12 lds trcg only w/o i&r To Be Assigned Start: 06-10-2024 Us pelvic nonobstetr ic real-time image complete Freda Hernandez SCABBLER.MAID HOUSEKEEPER Work Phone: Start: 06-05-2024 Endometrial bx w/wo endocervix bx w/o dilat spx Freda Hernandez SCABBLER.MAID HOUSEKEEPER Work Phone: Start: 06-04-2024 Mri spinal canal cer vical w/o & w/contr matrl Raymond Kemp SCABBLER.MAID HOUSEKEEPER Work Phone: Start: 08-13-2023 Mri brain brain stem w/o w/contrast material Jeffery J Cantu DO Work Phone: Start: 08-13-2023 End: 08-13-2023 Ct head/brain w/o contrast material Jeffery J Cantu DO Work Phone: Start: 08-13-2023 Radiologic exam ches t single view Keo Steven SCABBLER - MAID HOUSEKEEPER Work Phone: Start: 08-13-2023 Ecg routine ecg w/le ast 12 lds w/i&r Jeffery Ferguson Cantu DO Work Phone: Start: 08-13-2023 Comprehensive metabo lic panel Keo Steven SCABBLER - MAID HOUSEKEEPER Work Phone: Start: 08-13-2023 Drug tst prsmv instr mnt chem analyzers pr date Jeffery Marty Cantu DO Work Phone: Start: 08-13-2023 Urinalysis microscopic only Jeffery J Cantu DO Work Phone: Start: 08-13-2023 Urnls dip stick/tabl et rgnt auto w/o microscopy Jeffery J Cantu DO Work Phone: Start: 08-09-2023 Ultrasonography of r ight breast DO Rinaradha Reardon Work Phone: Start: 08-09-2023 Bilateral mammography D O Genalyteluly Work Phone: Start: 01-29-2020 Adult depression scr eening assessment Magdalene Drake PA-C Work Phone: Adult health examination Deepak Reardon Other Plan of Treatment Date Care Activity Detail Author Start: 02-13-2029 Screening for malign ant neoplasm of cervix Cervical Cancer Screening [facility] Start: 10-10-2027 [facility] Start: 07-10-2027 [facility] Start: 05-08-2027 Diabetes Screening [facility] Start: 08-30-2026 Diabetes Screening [facility] Start: 07-02-2026 Diabetes Screening [facility] Start: 08-17-2025 DIABETES SCREEN DIABETES SCREEN [facility] Start: 08-17-2025 Diabetes Screening Diabetes Screenin g [facility] Start: 01-08-2025 End: 01-08-2025 Patient encounter procedure [facility] Comment on above: [place] Start: 01-04-2025 End: 04-05-2025 CBC W Auto Differential panel - Blood COMPLETE BLOOD COUNT AND DIFFERENTIAL Lab Routine Multiple sclerosis (HCC) Expected: 01/04/2025 (Approximate), Expires: 04/05/2025 [facility] Work Phone: Comment on above: Expected: 01/04/2025 (Approximate), Expires: 04/05/2025 Start: 01-04-2025 End: 04-05-2025 Comprehensive metabolic 2000 panel - Serum or Plasma COMPREHENSIVE METABOLIC PANEL Lab Routine Multiple sclerosis (HCC) Expected: 01/04/2025 (Approximate), Expires: 04/05/2025 [facility] Comment on above: Expected: 01/04/2025 (Approximate), Expires: 04/05/2025 Start: 11-24-2024 End: 11-24-2024 Patient encounter procedure 11/24/2024 11:00 AM EDT Office Visit Internal Medicine [place] [address] [place] [address] Ciera Juarez, SCABBLER.MAID HOUSEKEEPER [address] [place] [address] physical Internal Medicine [place] Comment on above: physical Start: 11-19-2024 End: 11-19-2024 Patient encounter procedure 11/19/2024 2:15 PM EDT Office Visit [facility] Ophthalmology [address] [place] [address] Colt Dozier OD [address] [place] [address] Comment: To establish care Ophthalmology Comment on above: Comment: [facility] Start: 11-17-2024 End: 11-17-2024 Patient encounter procedure 11/17/2024 1:00 PM EDT Office Visit Internal Medicine [place] [address] [place] [address] Ciera Juarez, SCABBLER.MAID HOUSEKEEPER [address] [place] [address] physical Internal Medicine [place] Comment on above: physical Start: 11-10-2024 End: 11-10-2024 Patient encounter procedure 11/10/2024 1:00 PM EDT Office Visit Neurology [address] [place] [address] Angie Mora APRN.MAID HOUSEKEEPER [address] [place] [address] Multiple sclerosis (HCC) [G35] Neurology Comment on above: Multiple sclerosis ( HCC) [G35] Start: 11-03-2024 End: 11-03-2024 Patient encounter procedure Radiology Comment on above: Dx: Multiple scleros is (HCC) [G35] Start: 10-30-2024 End: 10-30-2024 Patient encounter procedure 10/30/2024 2:30 PM EDT Office Visit Obstetrics/Gynecology [address] [address] April Moore MD [address] [place] [address] fibroids Obstetrics/Gynecology Comment on above: fibroids Start: 10-29-2024 End: 10-29-2024 Patient encounter procedure 10/29/2024 10:00 AM EDT Office Visit Orthopaedics [address] [place] [address] Jayshree Fu PA-C [address] [place] [address] Dx: Pain in joint of right hand [M25.541]; Multiple sclerosis (HCC) [G35] Orthopaedics Comment on above: Dx: Pain in joint of right hand [M25.541]; Multiple sclerosis (HCC) [G35] Start: 10-27-2024 End: 10-27-2024 Specialty Pharmacy 10/27/2024 11:00 AM EDT Specialty Pharmacy [facility] [address] [place] [address] [address] [place] [address] Pharmacist, [facility] [address] [place] [address] REFILL- Zeposia (verify address) - [facility] Comment on above: REFILL- Zeposia ([place] ko[place] address) - Start: 10-09-2024 End: 01-08-2025 Cobalamin (Vitamin B12) [Mass/volume] in Serum or Plasma [facility] Comment on above: Expected: 10/09/2024 , Expires: 01/08/2025 Start: 10-09-2024 End: 10-09-2024 Patient encounter procedure 10/09/2024 8:45 AM EST Office Visit [facility] [address] [place] [address] Raymond Kemp, SCABBLER.MAID HOUSEKEEPER [address] [place] [address] follow up [facility] Comment on above: follow up Start: 10-03-2024 End: 10-03-2024 Specialty Pharmacy 10/03/2024 11:00 AM EST Specialty Pharmacy [facility] Specialty Pharmacy [facility] [employer] [place] [phone] Pharmacist, [facility] [address] [place] [address] [place] [address] REFILL- Zeposia (verify address) --no carolina figueredo sent 09/30 [facility] Comment on above: REFILL- Zeposia ([place] address) --no carolina figueredo sent 09/30 Start: 09-30-2024 End: 09-30-2024 Specialty Pharmacy 09/30/2024 11:00 AM EST Specialty Pharmacy [facility] [employer] [address] [address] Pharmacist, [facility] [address] [place] [address] [place] [address] REFILL- Zeposia (verify address) -- [facility] Specialty Pharmacy Comment on above: REFILL- Zeposia ([place] address) -- Start: 09-25-2024 End: 09-25-2024 Patient encounter procedure Gynecology Comment on above: MIGS CONSULT Start: 09-02-2024 End: 09-02-2024 Specialty Pharmacy 09/02/2024 11:00 AM EST Specialty Pharmacy [facility] [address] [place] [address] Pharmacist, [facility] [address] [place] [address] [place] [phone] REFILL- Zeposia (verify address) -- no vm wamb txt 08/28 [facility] Comment on above: REFILL- Zeposia ([place] address) -- no vm wamb txt 08/28 Start: 08-29-2024 End: 08-29-2024 Patient encounter procedure Neurology Comment on above: Multiple sclerosis ( HCC) [G35]; Snoring [R06.83] REFILL- Zeposia (exp . ) verify address Multiple sclerosis ( HCC) [G35]; Snoring [R06.83] no cpap Start: 08-27-2024 Covid-19 Vaccine (#1) Covid-19 Vacci ne (#1) [facility] Comment on above: Postponed from 05/11 (Declined at this time) Start: 08-27-2024 Covid-19 Vaccine () Covid-19 Vaccine () [facility] Comment on above: Postponed from 04/06 (Declined at this time) Start: 08-27-2024 Urine microalbumin profile DTaP,Tdap,Td Vaccine (1 - Tdap) [facility] Comment on above: Postponed from 11/09 (Declined at this time) Start: 08-21-2024 End: 02-12-2026 OCT NEURO INST OCT NEURO INST OPHT Imaging Routine Multiple sclerosis (HCC) Expected: 08/21/2024 (Approximate), Expires: 02/12/2026 [facility] Comment on above: Expected: 08/21/2024 (Approximate), Expires: 02/12/2026 Start: 08-21-2024 End: 08-21-2024 Patient encounter procedure 08/21/2024 1:45 PM EST Office Visit [address] [place] [address] Raymond Kemp, SCABBLER.MAID HOUSEKEEPER [address] [place] [address] Return in about 3 months (around 08/08/2024). [facility] Comment on above: Return in about 3 mo nths (around 08/08/2024). Start: 08-14-2024 End: 08-14-2024 Patient encounter procedure 08/14/2024 9:30 AM EST Office Visit [facility] [address] [place] [address] Raymond Kemp, SCABBLER.MAID HOUSEKEEPER [address] [place] [address] Return in about 3 months (around 08/08/2024). [facility] Comment on above: Return in about 3 mo nths (around 08/08/2024). Start: 08-09-2024 Screening for malign ant neoplasm of breast Mammogram Screening [facility] Start: 08-04-2024 End: 08-04-2024 Specialty Pharmacy 08/04/2024 11:00 AM EST Specialty Pharmacy [facility] [address] [place] [address] Drive [facility] [place] [address] Pharmacist, [facility] [address] [place] [address] REFILL- Zeposia (exp. ) verify address [facility] Comment on above: REFILL- Zeposia (exp . ) verify address Start: 08-01-2024 End: 03-01-2025 MR Brain WO and W contrast IV MRI BRAIN WO/W IVCON Radiology Routine Multiple sclerosis (HCC) Encounter for medication monitoring Expected: 08/01/2024 (Approximate), Expires: 03/01/2025 [facility] Comment on above: Expected: 08/01/2024 (Approximate), Expires: 03/01/2025 Start: 08-01-2024 End: 08-01-2024 Patient encounter procedure 08/01/2024 9:20 AM EST Appointment Radiology [address] [place] [address] Multiple sclerosis (HCC) [G35]; Encounter for medication monitoring [Z51.81] Radiology Comment on above: Multiple sclerosis ( HCC) [G35]; Encounter for medication monitoring [Z51.81] Start: 07-17-2024 End: 07-17-2024 Patient encounter procedure Sleep Disorders Comment on above: Multiple sclerosis ( HCC) [G35]; Snoring [R06.83] f/u Start: 07-08-2024 End: 07-08-2024 Specialty Pharmacy 07/08/2024 11:00 AM EST [facility]acy [facility] [address] [place], [place] [phone] Pharmacist, [facility] [place] [address] [place] [address] REFILL- Zeposia (exp. ) verify address-- vm not set up/wa 07/04 [facility] Comment on above: REFILL- Zeposia (exp . ) verify address-- vm not set up/wamb 07/04 Start: 07-04-2024 End: 07-04-2024 Specialty Pharmacy [facility] Comment on above: REFILL- Zeposia (exp . ) verify address REFILL- Zeposia (exp . ) verify address--ref req Start: 06-19-2024 End: 06-19-2024 Specialty Pharmacy 06/19/2024 11:00 AM EST [facility]ty [facility]acy [facility] [address] [place] [address] Pharmacist, [facility] [address] [place] [address] [address] [place], [place] [phone] REFILL- Zeposia (exp. ) --multiple attempts (wam txt /mcm) [facility] Comment on above: REFILL- Zeposia (exp . ) --multiple attempts (wam txt /mcm) Start: 06-17-2024 End: 09-16-2024 Hemoglobin A1c in Blood HEMOGLOBIN A1C Lab Routine Prediabetes Expected: 06/17/2024, Expires: 09/16/2024 [facility] Work Phone: Comment on above: Expected: 06/17/2024 , Expires: 09/16/2024 Start: 06-16-2024 End: 06-16-2024 Patient encounter procedure 06/16/2024 3:00 PM EST Office Visit Gynecology [address] [address] Freda Hernandez, SCABBLER.MAID HOUSEKEEPER [address] [place], [place] [id number] FOLLOW UP Gynecology Comment on above: FOLLOW UP Start: 06-10-2024 End: 06-10-2024 Manual pelvic examination 06/10/2024 1:00 PM EST Procedure Gynecology [address] [address] Remote, [employer] [address] [place], [place] [id number] PELVIC ULTRASOUND Gynecology Comment on above: PELVIC ULTRASOUND Start: 06-09-2024 End: 06-09-2024 Patient encounter procedure 06/09/2024 9:00 AM EST Office Visit Internal Medicine [place] [address] [place] [address] Ciera Juarez, SCABBLER.MAID HOUSEKEEPER [address] [place] [address] Establish Care Internal Medicine [facility] Comment on above: Establish Care Start: 06-05-2024 End: 06-05-2025 US Pelvis PELVIC US WHI Anc Imaging Routine PMB (postmenopausal bleeding) Expected: 06/05/2024, Expires: 06/05/2025 [facility] Work Phone: Comment on above: Expected: 06/05/2024 , Expires: 06/05/2025 Start: 06-05-2024 End: 06-05-2024 Specialty Pharmacy [facility] Comment on above: REFILL- Zeposia (exp . ) --no vm, wamb sent 05/26,no vm 05/29 &06/02, mcm PMB (postmenopausal bleeding) [N95.0] Start: 06-04-2024 End: 06-04-2024 Patient encounter procedure 06/04/2024 8:40 AM EDT Appointment Radiology [address] [place] [address] Multiple sclerosis (HCC) [G35] Radiology Comment on above: Multiple sclerosis ( HCC) [G35] Start: 05-29-2024 End: 05-29-2024 [facility]ty [facility]acy [facility] Comment on above: REFILL- Zeposia (exp . ) --no vm, wamb sent 05/26 PMB (postmenopausal bleeding) [N95.0] Start: 05-26-2024 End: 05-26-2024 Specialty Pharmacy 05/26/2024 11:00 AM EDT Specialty Pharmacy [facility] [address] [place], [place] [address] [address] Pharmacist, [address] [phone] REFILL- Zeposia (exp. ) -- [facility] Comment on above: REFILL- Zeposia (exp . ) -- Start: 05-23-2024 End: 05-23-2024 Patient encounter procedure 05/23/2024 8:30 AM EDT Office Visit Orthopaedics [address] [place] [address] Kelley Ruffin MD [address] [place] [address] [phone] Pain in joint of right hand [M25.541]; Multiple sclerosis (HCC) [G35] Orthopaedics Comment on above: Pain in joint of rig ht hand [M25.541]; Multiple sclerosis (HCC) [G35] Start: 05-21-2024 End: 05-21-2024 Patient encounter procedure 05/21/2024 11:30 AM EDT Office Visit Obstetrics/Gynecology [address] [facility] [place] [address] Alpa Ferro APRN.CN [address] [facility] [place] [address] PMB (postmenopausal bleeding) [N95.0] Obstetrics/Gynecology Comment on above: PMB (postmenopausal bleeding) [N95.0] Start: 05-19-2024 End: 05-19-2024 Patient encounter procedure 05/19/2024 8:30 AM EDT Office Visit [facility] Ophthalmology [address] [facility] [place] [address] Reginald Demarco, OD [address] [facility] [place] [address] Multiple sclerosis-Blurry vision-eye exam Ophthalmology Comment on above: Multiple sclerosis-B lurry vision-eye exam Start: 05-08-2024 End: 08-07-2024 Cobalamin (Vitamin B12) [Mass/volume] in Serum or Plasma [facility] Comment on above: Expected: 05/08/2024 , Expires: 08/07/2024 Start: 05-08-2024 End: 08-07-2024 Comprehensive metabolic 2000 panel - Serum or Plasma [facility] Comment on above: Expected: 05/08/2024 , Expires: 08/07/2024 Start: 05-08-2024 End: 08-07-2024 Iron and Iron binding capacity panel - Serum or Plasma [facility] Comment on above: Expected: 05/08/2024 , Expires: 08/07/2024 Start: 05-08-2024 End: 05-08-2024 Patient encounter procedure 05/08/2024 9:30 AM EDT Office Visit [facility] [address] [facility] [place] [address] Raymond Kemp, MARINO.MAID HOUSEKEEPER [address] [place] [address] Return in about 3 months (around 05/02/2024). [facility] Comment on above: Return in about 3 mo nths (around 05/02/2024). Start: 04-14-2024 End: 04-14-2024 Specialty Pharmacy 04/14/2024 11:00 AM EDT Specialty Pharmacy [facility] [place] [address] Pharmacist, [facility] [address] [place] [address] [place] [address] REFILL- Zeposia (exp. ) --[facility] sent 04/09 [facility] Specialty Pharmacy Comment on above: REFILL- Zeposia (exp . ) --[facility] sent 04/09 Start: 04-06-2024 Covid-19 Vaccine ( season) Covid-19 Vaccine () [facility] Start: 04-06-2024 Covid-19 Vaccine () Covid-19 Vaccine () [facility] Start: 04-06-2024 Influenza vaccination [facility] Start: 03-17-2024 End: 03-17-2024 Specialty Pharmacy 03/17/2024 11:00 AM EDT Specialty Pharmacy [facility] [address] [place] [address] Pharmacist, [facility] [address] [place] [phone] REFILL- Zeposia (exp. ) --[facility] sent 03/13 [facility] Comment on above: REFILL- Zeposia (exp . ) --[facility] sent 03/13 Start: 03-13-2024 End: 03-13-2024 Specialty Pharmacy 03/13/2024 11:00 AM EDT Specialty Pharmacy [facility] [address] [place] [phone] Pharmacist, [facility] [place] [address] REFILL- Zeposia (exp. ) -- [facility] Comment on above: REFILL- Zeposia (exp . ) -- Start: 03-12-2024 End: 03-12-2024 Patient encounter procedure 03/12/2024 2:20 PM EDT Appointment Mammography [address] [place] [address] mammogram screen Mammography Comment on above: mammogram screen Start: 02-26-2024 End: 02-26-2024 Patient encounter procedure 02/26/2024 11:30 AM EDT Office Visit Obstetrics/Gynecology [address] [place] [address] [place] [address] [place] [address] PMB (postmenopausal bleeding) [N95.0] Obstetrics/Gynecology Comment on above: PMB (postmenopausal bleeding) [N95.0] Start: 02-14-2024 End: 02-14-2024 Patient encounter procedure 02/14/2024 8:40 AM EDT Office Visit OB/Gynecology [address] [place] [address] [place] [address] [place] [address] FIBROIDS OB/Gynecology Comment on above: FIBROIDS Start: 02-11-2024 End: 02-11-2024 Specialty Pharmacy 02/11/2024 11:00 AM EDT Specialty Pharmacy [facility] [address] [place] [phone] Pharmacist, [facility] [address] [place] [address] [place] [address] REFILL- Zeposia (exp. ) -- wamb sent 02/04 [facility] Comment on above: REFILL- Zeposia (exp . ) -- wamb sent 02/04 Start: 02-08-2024 End: 02-08-2024 Patient encounter procedure 02/08/2024 8:00 AM EDT Office Visit Internal Medicine [place] [address] [place] [address] Sandro Burgos MD [address] [place] [address] FOLLOW UP Internal Medicine [place] Comment on above: FOLLOW UP Start: 02-05-2024 End: 02-05-2024 Specialty Pharmacy 02/05/2024 11:00 AM EDT Specialty Pharmacy [facility] [address] [place], [place] [address] [place] [address] [facility]ist, [facility] [address] [facility] [place] [place] [address] REFILL- Zeposia (exp. ) -- [facility] Comment on above: REFILL- Zeposia (exp . ) -- Start: 02-03-2024 Influenza vaccination Influenza Vacc ine (#1) [facility] Comment on above: Postponed from 04/06 (Declined at this time) Start: 01-31-2024 End: 05-01-2024 25-hydroxyvitamin D3 [Mass/volume] in Serum or Plasma VITAMIN D 25 HYDROXY Lab Routine Multiple sclerosis (HCC) Encounter for medication monitoring Vitamin D deficiency Other fatigue Expected: 01/31/2024, Expires: 05/01/2024 [facility] Comment on above: Expected: 01/31/2024 , Expires: 05/01/2024 Start: 01-31-2024 End: 05-01-2024 CBC W Auto Differential panel - Blood COMPLETE BLOOD COUNT AND DIFFERENTIAL Lab Routine Multiple sclerosis (HCC) Encounter for medication monitoring Expected: 01/31/2024, Expires: 05/01/2024 [facility] Work Phone: Comment on above: Expected: 01/31/2024 , Expires: 05/01/2024 Start: 01-31-2024 End: 05-01-2024 Cobalamin (Vitamin B12) [Mass/volume] in Serum or Plasma VITAMIN B12 Lab Routine Multiple sclerosis (HCC) Other fatigue Expected: 01/31/2024, Expires: 05/01/2024 [facility] Comment on above: Expected: 01/31/2024 , Expires: 05/01/2024 Start: 01-31-2024 End: 05-01-2024 Comprehensive metabolic 2000 panel - Serum or Plasma COMPREHENSIVE METABOLIC PANEL Lab Routine Multiple sclerosis (HCC) Encounter for medication monitoring Expected: 01/31/2024, Expires: 05/01/2024 [facility] Comment on above: Expected: 01/31/2024 , Expires: 05/01/2024 Start: 01-31-2024 End: 05-01-2024 Methylmalonate [Moles/volume] in Serum or Plasma METHYLMALONIC ACID Lab Routine Multiple sclerosis (HCC) Other fatigue Expected: 01/31/2024, Expires: 05/01/2024 [facility] Comment on above: Expected: 01/31/2024 , Expires: 05/01/2024 Start: 01-14-2024 End: 01-14-2024 Specialty Pharmacy 01/14/2024 11:00 AM EDT Specialty Pharmacy [facility] [address] [place] [address] Pharmacist, [facility] [address] [place] [address] [place] [address] REFILL- Zeposia (exp. ) --lvm 01/09 [facility] Comment on above: REFILL- Zeposia (exp . ) --lvm 01/09 Start: 12-20-2023 End: 12-20-2023 Patient encounter procedure [facility] [facility] Comment on above: Return in about 3 mo nths (around 12/19/2023). REFILL- Zeposia (exp . ) -- lvm 12/16 Start: 12-17-2023 End: 12-17-2023 Specialty Pharmacy 12/17/2023 11:00 AM EDT [facility] [address] [place] [id number] Pharmacist, [facility] [address] [place] [address] [place] [address] REFILL- Zeposia (exp. ) -- [facility] Comment on above: REFILL- Zeposia (exp . ) -- Start: 09-17-2023 End: 09-17-2024 US Pelvis PELVIC US WHI Anc Imaging Routine Fibroid Expected: 09/17/2023, Expires: 09/17/2024 [facility] Work Phone: Comment on above: Expected: 09/17/2023 , Expires: 09/17/2024 Start: 08-15-2023 End: 08-15-2023 Patient encounter procedure 08/15/2023 12:00 PM EST Appointment [facility] ([facility]) [address] [place] [address] Dr dafne, Momo, DX: MS [facility] [place] Comment on above: Dr leos Iqbal , DX: MS Start: 08-02-2023 End: 08-17-2024 Mri spinal canal thoracic w/o & w/contr matrl MRI THORACIC SPINE WO/W IVCON Radiology Routine Multiple sclerosis (HCC) Demyelinating disease of central nervous system (HCC) Expected: 08/02/2023 (Approximate), Expires: 08/17/2024 [facility] Work Phone: Comment on above: Expected: 08/02/2023 (Approximate), Expires: 08/17/2024 Start: 07-19-2023 End: 10-18-2023 Bacteria identified in Urine by Culture [facility] Work Phone: Comment on above: Expected: 07/19/2023 , Expires: 10/18/2023 Start: 06-27-2023 End: 09-26-2023 25-hydroxyvitamin D3 [Mass/volume] in Serum or Plasma VITAMIN D 25 HYDROXY Lab Routine Multiple sclerosis (HCC) Encounter for medication monitoring Vitamin D deficiency Expected: 06/27/2023, Expires: 09/26/2023 [facility] Work Phone: Comment on above: Expected: 06/27/2023 , Expires: 09/26/2023 Start: 06-27-2023 End: 09-26-2023 CBC W Auto Differential panel - Blood CBC + DIFF Lab Routine Multiple sclerosis (HCC) Encounter for medication monitoring Expected: 06/27/2023, Expires: 09/26/2023 [facility] Work Phone: Comment on above: Expected: 06/27/2023 , Expires: 09/26/2023 Start: 06-27-2023 End: 09-26-2023 Comprehensive metabolic 2000 panel - Serum or Plasma COMP METABOLIC PANEL Lab Routine Multiple sclerosis (HCC) Encounter for medication monitoring Expected: 06/27/2023, Expires: 09/26/2023 [facility] Work Phone: Comment on above: Expected: 06/27/2023 , Expires: 09/26/2023 Start: 04-18-2023 End: 06-18-2023 25-hydroxyvitamin D3 [Mass/volume] in Serum or Plasma VITAMIN D 25 HYDROXY Lab Routine Multiple sclerosis (HCC) Encounter for medication monitoring Expected: 04/18/2023, Expires: 06/18/2023 [facility] Work Phone: Comment on above: Expected: 04/18/2023 , Expires: 06/18/2023 Start: 04-18-2023 End: 06-18-2023 CBC W Auto Differential panel - Blood CBC + DIFF Lab Routine Multiple sclerosis (HCC) Encounter for medication monitoring Expected: 04/18/2023, Expires: 06/18/2023 [facility] Work Phone: Comment on above: Expected: 04/18/2023 , Expires: 06/18/2023 Start: 04-18-2023 End: 06-18-2023 Comprehensive metabolic 2000 panel - Serum or Plasma COMP METABOLIC PANEL Lab Routine Multiple sclerosis (HCC) Encounter for medication monitoring Expected: 04/18/2023, Expires: 06/18/2023 [facility] Work Phone: Comment on above: Expected: 04/18/2023 , Expires: 06/18/2023 Start: 04-06-2023 Influenza vaccination [facility] Start: 04-03-2023 End: 06-03-2023 25-hydroxyvitamin D3 [Mass/volume] in Serum or Plasma VITAMIN D 25 HYDROXY Lab Routine Multiple sclerosis (HCC) Medication monitoring encounter Vitamin D deficiency Expected: 04/03/2023, Expires: 06/03/2023 [facility] Work Phone: Comment on above: Expected: 04/03/2023 , Expires: 06/03/2023 Start: 04-03-2023 End: 06-03-2023 CBC W Auto Differential panel - Blood CBC + DIFF Lab Routine Multiple sclerosis (HCC) Medication monitoring encounter Expected: 04/03/2023, Expires: 06/03/2023 [facility] Work Phone: Comment on above: Expected: 04/03/2023 , Expires: 06/03/2023 Start: 04-03-2023 End: 06-03-2023 Comprehensive metabolic 2000 panel - Serum or Plasma COMP METABOLIC PANEL Lab Routine Multiple sclerosis (HCC) Medication monitoring encounter Expected: 04/03/2023, Expires: 06/03/2023 [facility] Work Phone: Comment on above: Expected: 04/03/2023 , Expires: 06/03/2023 Start: 03-06-2023 Influenza vaccination Flu vaccine (# 1) [facility] Start: 01-09-2023 End: 03-11-2023 25-hydroxyvitamin D3 [Mass/volume] in Serum or Plasma VITAMIN D 25 HYDROXY Lab Routine Multiple sclerosis (HCC) Medication monitoring encounter Vitamin D deficiency Expected: 01/09/2023, Expires: 03/11/2023 [facility] Work Phone: Comment on above: Expected: 01/09/2023 , Expires: 03/11/2023 Start: 01-09-2023 End: 03-11-2023 CBC W Auto Differential panel - Blood CBC + DIFF Lab Routine Multiple sclerosis (HCC) Medication monitoring encounter Expected: 01/09/2023, Expires: 03/11/2023 [facility] Work Phone: Comment on above: Expected: 01/09/2023 , Expires: 03/11/2023 Start: 01-09-2023 End: 03-11-2023 Comprehensive metabolic 2000 panel - Serum or Plasma COMP METABOLIC PANEL Lab Routine Multiple sclerosis (HCC) Medication monitoring encounter Expected: 01/09/2023, Expires: 03/11/2023 [facility] Work Phone: Comment on above: Expected: 01/09/2023 , Expires: 03/11/2023 Start: 11-04-2022 End: 01-04-2023 CBC panel - Blood by Automated count CBC Lab Routine Encounter for pre-operative laboratory testing Expected: 11/04/2022 (Approximate), Expires: 01/04/2023 [facility] Work Phone: Comment on above: Expected: 11/04/2022 (Approximate), Expires: 01/04/2023 Start: 11-04-2022 End: 01-04-2023 Comprehensive metabolic 2000 panel - Serum or Plasma COMP METABOLIC PANEL Lab Routine Encounter for pre-operative laboratory testing Expected: 11/04/2022 (Approximate), Expires: 01/04/2023 [facility] Work Phone: Comment on above: Expected: 11/04/2022 (Approximate), Expires: 01/04/2023 Start: 11-04-2022 End: 01-04-2023 CONFIRM BLOOD TYPE CONFIRM BLOOD TYPE Blood Bank Routine Encounter for pre-operative laboratory testing Expected: 11/04/2022 (Approximate), Expires: 01/04/2023 [facility] Work Phone: Comment on above: Expected: 11/04/2022 (Approximate), Expires: 01/04/2023 Start: 11-04-2022 End: 01-04-2023 TYPE AND SCREEN,30 DAY TYPE AND SCREEN,30 DAY Blood Bank Routine Encounter for pre-operative laboratory testing Expected: 11/04/2022 (Approximate), Expires: 01/04/2023 [facility] Work Phone: Comment on above: Expected: 11/04/2022 (Approximate), Expires: 01/04/2023 Start: 08-17-2022 End: 10-17-2022 Basic metabolic 2000 panel - Serum or Plasma [facility] Work Phone: Comment on above: Expected: 08/17/2022 , Expires: 10/17/2022 Start: 08-17-2022 End: 10-17-2022 CONFIRM BLOOD TYPE [facility] Work Phone: Comment on above: Expected: 08/17/2022 , Expires: 10/17/2022 Start: 08-17-2022 End: 10-17-2022 TYPE AND SCREEN,30 DAY [facility] Work Phone: Comment on above: Expected: 08/17/2022 , Expires: 10/17/2022 Start: 04-06-2022 Influenza vaccination [facility] Start: 10-27-2021 End: 12-27-2021 CBC W Auto Differential panel - Blood CBC + DIFF Lab Routine Multiple sclerosis (HCC) Medication monitoring encounter Expected: 10/27/2021, Expires: 12/27/2021 [facility] Work Phone: Comment on above: Expected: 10/27/2021 , Expires: 12/27/2021 Start: 10-27-2021 End: 12-27-2021 HEPATIC FUNCTION PNL HEPATIC FUNCTION PNL Lab Routine Multiple sclerosis (HCC) Medication monitoring encounter Expected: 10/27/2021, Expires: 12/27/2021 [facility] Work Phone: Comment on above: Expected: 10/27/2021 , Expires: 12/27/2021 Start: 04-06-2021 Influenza vaccination INFLUENZA (#1) [facility] Start: 01-28-2021 Adult depression screening assessment DEPRESSION SCREENING [facility] Start: 11-10-2019 Screening for malign ant neoplasm of breast Breast cancer screen [facility] Start: 11-10-2019 Shingles vaccine (1 of 2) Shingles vaccine (1 of 2) [facility] Start: 11-10-2019 SHINGRIX VACCINE (1 of 2) SHINGRIX VACCINE (1 of 2) [facility] Start: 2014 COLOGUARD (FIT-DNA) COLOGUARD (FIT-D NA) [facility] Start: 2014 Colonoscopy COLONOSCOPY [facility] Start: 2014 COLORECTAL CANCER SCREENING COLORECTAL CANCER SCREENING [facility] Start: [address] COLONOGRAPHY [facility] Start: 2014 DIABETES SCREEN DIABETES SCREEN [facility] Start: 2014 FECAL OCCULT BLOOD FECAL OCCULT BLOO D [facility] Start: 2014 Lipid 1996 panel - S real or Plasma Lipid Screening [facility] Start: 2014 Lipid panel [facility] Start: 2014 LIPID SCREEN LIPID SCREEN [facility] Start: 2014 Screening for malign ant neoplasm of colon [facility] Start: 2014 SIGMOIDOSCOPY SIGMOIDOSCOPY [facility] Start: 2009 Mammography [facility] Start: 2009 Screening for malign ant neoplasm of breast [facility] Start: 2004 Diabetes screen Diabetes screen [facility] Start: 11-10-1999 HPV TESTING HPV TESTING [facility] Start: 11-10-1999 Screening for malign ant neoplasm of cervix [facility] Start: 1990 PAP TESTING PAP TESTING [facility] Start: 1990 Screening for malign ant neoplasm of cervix [facility] Start: 1988 DTaP/Tdap/Td vaccine (1 - Tdap) DTaP/Tdap/Td vaccine (1 - Tdap) [facility] Start: 1988 Hepatitis A (HAV) Vaccine (optional start 19+ years) Hepatitis A (HAV) Vaccine (optional start 19+ years) [facility] Start: 1988 Hepatitis B vaccination Hepati tis B (HBV) Vaccine (1 of 3 - 19+ 3-dose series) [facility] Start: 1988 Hepatitis B Vaccine (1 of 3 - 19+ 3-dose series) Hepatitis B Vaccine (1 of 3 - 19+ 3-dose series) [facility] Start: 1988 Shingles (RZV) Vacci ne (1 of 2) Shingles (RZV) Vaccine (1 of 2) [facility] Start: 1988 Urine microalbumin profile [facility] Start: 11-10-1987 Anxiety Screening Anxiety Screening [facility] Start: 11-10-1987 HEPATITIS C SCREENING HEPATITIS C SC ANTONIO [facility] Start: 11-10-1987 Hepatitis C screening [facility] Start: 11-10-1987 HIV SCREENING HIV SCREENING [facility] Start: 11-10-1987 HIV screening HIV Screening [facility] Start: 11-10-1987 Tdap Booster Tdap Booster [facility] Start: 1984 HIV screening [facility] Start: 1981 Depression Screen Depression Screen [facility] Start: 11-10-1979 Lipid panel Lipids [facility] Start: 11-10-1975 PNEUMOCOCCAL (1 - PCV) PNEUMOCOCCAL (1 - PCV) [facility] Start: 11-10-1975 Pneumococcal vaccination Pneum ococcal Vaccine (1 - PCV) [facility] Start: 1974 COVID-19 VACCINE (#1) COVID-19 VACCI NE (#1) [facility] Start: 1974 COVID-19 VACCINE (1) COVID-19 VACCIN E (1) [facility] Start: 05-11-1970 COVID-19 VACCINE (#1) COVID-19 VACCI NE (#1) [facility] Start: 1969 HEPATITIS B (1 of 3 - 3-dose series) HEPATITIS B (1 of 3 - 3-dose series) [facility] Start: 1969 Hepatitis B Vaccine (1 of 3 - 3-dose series) Hepatitis B Vaccine (1 of 3 - 3-dose series) [facility] Start: 1969 Screening for malign ant neoplasm of colon Colonoscopy [facility] EKG 12 Lead EKG 12 Lead ECG STAT 08/13/2023 12:21 PM EST [facility] End: 08-17-2024 ELIZABETH DIAGNOSTIC BILATERAL [facility] Radiology Routine Breast pain in female 1 Occurrences starting 07/19/2023 until 08/17/2024 [facility] Work Phone: Comment on above: 1 Occurrences starti ng 07/19/2023 until 08/17/2024 End: 03-15-2025 MG Breast Screening ELIZABETH SCREENING Radiology Routine Encounter for screening mammogram for malignant neoplasm of breast 1 Occurrences starting 02/14/2024 until 03/15/2025 [facility] Comment on above: 1 Occurrences starti ng 02/14/2024 until 03/15/2025 End: 06-07-2025 MR Cervical spine WO and W contrast IV MRI CERVICAL SPINE WO/W IVCON Radiology Routine Multiple sclerosis (HCC) 1 Occurrences starting 05/08/2024 until 06/07/2025 [facility] Comment on above: 1 Occurrences starti ng 05/08/2024 until 06/07/2025 End: 11-08-2025 MR Lumbar spine WO and W contrast IV MRI LUMBAR SPINE WO/W IVCON Radiology Routine Multiple sclerosis (HCC) 1 Occurrences starting 10/09/2024 until 11/08/2025 [facility] Comment on above: 1 Occurrences starti ng 10/09/2024 until 11/08/2025 End: 11-08-2025 MR Thoracic spine WO and W contrast IV MRI THORACIC SPINE WO/W IVCON Radiology Routine Multiple sclerosis (HCC) 1 Occurrences starting 10/09/2024 until 11/08/2025 [facility] Work Phone: Comment on above: 1 Occurrences starti ng 10/09/2024 until 11/08/2025 End: 05-17-2024 Mri brain brain stem w/o w/contrast material MRI BRAIN WO/W IVCON Radiology Routine Multiple sclerosis (HCC) Encounter for medication monitoring 1 Occurrences starting 04/18/2023 until 05/17/2024 [facility] Work Phone: Comment on above: 1 Occurrences starti ng 04/18/2023 until 05/17/2024 End: 05-17-2024 Mri spinal canal cervical w/o & w/contr matrl MRI CERVICAL SPINE WO/W IVCON Radiology Routine Multiple sclerosis (HCC) Encounter for medication monitoring 1 Occurrences starting 04/18/2023 until 05/17/2024 [facility] Work Phone: Comment on above: 1 Occurrences starti ng 04/18/2023 until 05/17/2024 PAP TEST PAP TEST Lab [facility] Encounter for Papanicolaou smear for cervical cancer screening Ordered: 02/14/2024 [facility] Work Phone: Comment on above: Ordered: 02/14/2024 Patient Education Insect Bites a nd Stings ED [facility] Work Phone: Patient referral [facility] Work Phone: SURGICAL PATHOLOGY SURGICAL PATH OLOGY Lab Routine PMB (postmenopausal bleeding) 06/05/2024 2:13 PM EDT [facility] End: 06-07-2025 XR Hand - right PA and Lateral and Oblique XR HAND GENERAL 3V PA/LAT/OBL RIGHT Radiology Routine Pain in joint of right hand Multiple sclerosis (HCC) 1 Occurrences starting 05/08/2024 until 06/07/2025 [facility] Work Phone: Comment on above: 1 Occurrences starti ng 05/08/2024 until 06/07/2025 [facility] Immunizations Immunization Date Immunization Notes Care Provider Fa eric 08-27-2023 pneumococcal conjuga te (PCV20) vaccine, 20 valent (PREVNAR 20) Raymond Kemp APRN.CNP Work Phone: [facility] Payers Date Payer Category Payer Medicaid (Managed Care) [employer]EV[employer]IX [id number] 2023 Self-pay [id number] 2023 Medicaid [id number] 2023 Unknown [id number] 2018 Medicaid [facility] [id number] 2018-Present [phone] [address] [place] [address] Medicaid [id number] 2018 Medicaid [id number] 1969 Unknown [id number] 2.16.840.1.538745.3.579.2. 593 1969 Unknown [id number] 2.16.840.1.310978.3.579.2. 593 1969 Unknown [id number] 2.16.840.1.564884.3.579.2. 593 1969 Unknown [id number] 2.16.840.1.480484.3.579.2. 593 1969 Unknown [id number] 2.16.840.1.830527.3.579.2. 647 1969 Unknown [id number] 2.16.840.1.491186.3.579.2. 173 1969 Unknown [id number] 2.16.840.1.105755.3.579.2. 173 1969 Unknown [id number] 2.16.840.1.270594.3.579.2. 173 1969 Unknown [id number] 2.16.840.1.200278.3.579.2. 173 1969 Unknown [id number] 2.16.840.1.993444.3.579.2. 983 1969 Unknown [id number] 2.16.840.1.816031.3.579.2. 1259 1969 Unknown [id number] 2.16.840.1.161050.3.579.2. 1259 1969 Unknown [id number] 2.16.840.1.854664.3.579.2. 1259 1969 Unknown [id number] 2.16.840.1.829987.3.579.2. 732 1969 Unknown [id number] 2.16.840.1.624630.3.579.2. 732 1969 Unknown [id number] 2.16.840.1.743291.3.579.2. 732 1969 Unknown [id number] 2.16.840.1.111574.3.579.2. 732 1959 Unknown [id number] Medicaid Medicaid Out of State [id number] Unknown [id number] 2.16.840.1.151517.3.579.2. 531 Unknown [id number] 2.16.840.1.774794.3.579.2. 531 Unknown [id number] 2.16.840.1.348841.3.579.2. 531 Social History Date Type Detail Facility Start: 02-17-2020 End: 08-17-2022 Tobacco smoking status NHIS Occasional tobacco smoker [facility] Start: 02-17-2020 End: 08-17-2022 Tobacco use and exposure Smokeless tobacco non-user [facility] Start: 10-27-2021 End: 06-16-2024 Alcohol intake Ex-drinker (finding) [facility] Start: 1970 Sex Assigned At Not on file [facility] Start: 10-17-2021 End: 03-23-2022 Exposure to SARS-CoV-2 (event) Not sure [facility] Start: 08-17-2022 End: 09-25-2024 Sex Assigned At [facility] History of tobacco use Cigarette Smoker [facility] Start: 08-17-2022 Tobacco Comment Not daily; 3-4 per day when she does smoke. [facility] Start: 02-17-2022 Tobacco smoking stat us TNIS Ex-smoker (finding) [facility] Start: 1970 Sex Assigned At Female F [facility] Start: 08-17-2022 End: 09-25-2024 History of Social function [facility] Adult Depression Screening Assessment 5 [facility] Start: 04-08-2023 End: 04-08-2023 Tobacco smoking status NHIS Never smoked tobacco (finding) [facility] Has the [employer], or [employer] threatened to shut off services in your home in past 12Mo No [facility] (I/We) worried whemelanie er (my/our) food would run out before (I/we) got money to buy more. Sometimes true [facility] Start: 06-09-2012 Sex Female (finding) Ami montero Clinical Notes 06-24-2021 to 10-09-2024 Patient InstructionsRaymond Kemp APRN.MAID HOUSEKEEPER - 10/09/2024 8:45 AM ESTTelephone Encounter - Iona Mccray RN - 09/29/2024 4:43 PM ESTTelephone Encounter - Melanie Ferro - 09/26/2024 10:01 AM EST Note Date & Type Note Facility 10-09-2024 Instructions Raymond Kemp APRN.CNP - 10/09/2024 10:10 AM EST PLAN: - Continue Zeposia - MRI brain 07/2025 - MRI thoracic and lumbar spine - Labs: CBC diff, CMP, vitamin B12, a1c - OCT today - Consult [facility] ophthalmology - Add tizanidine 2mg twice daily for muscle spasms - Miralax daily - Myrbetriq 25 mg daily for bladder symptoms - Recommendations as discussed at last visits: - reschedule with orthopedics - referrals: [facility], PT, OT - Follow up with Dr. Rothman as scheduled 01/08/25 at 11 am documented in this encounter [facility] 10-09-2024 History of Present illness Narrative Images from the original note were not included. [facility] FOLLOWUP/ESTABLISHED PATIENT VISIT PRINCIPAL NEUROLOGIC DIAGNOSIS: [...] disease modifying therapy and MS symptom management Usual treating team: Stephan/ Pedro The patient is unaccompanied. The patient was last seen 08/21/24, currently taking Zeposia. Since the patient's last visit the patient reports overall feeling stable. Issues with current therapy: Tolerating medication without side effects. INTERVAL HISTORY: Multiple ER visits since last visit - 09/23/24 muscle pain and cramping, acute on chronic - 09/13/24 URI symptoms x 7 days - 08/29/24 nausea/vomiting/diarrhea, headache Has continued to have a lot of lower back pain with radiating pain down her R leg, muscle spasms Normally toradol would work but now is not providing relief Working towards holistic approaches Has a membership to the [employer] and now is getting set up with her sober living house with trips which will transport her Looking forward to doing aqua therapy, strengthening Admits to 2 falls since last visit - legs gave out while standing up. Was having a lot of back pain that day Vision stable and sees [facility] locally Wears glasses Wants to establish with [facility] Continues to live with her significant other, Alissa, who is in sober living with her Patient reports she continues to be sober -- 6 months on 10/12/24 REVIEW OF SYSTEMS: Mood: PHQ9 responses reviewed and appear below Bladder: frequency and urgency Bowel: constipation, stable Pain: back pain continues Fatigue: significant Memory/Concentration: stable Neuro-QoL Functions (higher=better functioning) Flowsheet Row [facility] from 08/21/2024 in [facility] Office Visit from 07/19/2023 in [facility] Office Visit from 04/18/2023 in [facility] Upper Extremity Domain T Score 39 44.53 42.12 Lower Extremity Domain T Score 39 40.35 34.04 Cognitive Function Domain T Score 40 48.64 46.37 Positive Affect Well Being T Score -- -- -- Ability To Participate In Social Roles T Score 42 44.12 33.38 Satisfaction With Social Roles T Score 44 41.34 36.98 Neuro-QoL Symptoms (higher=worse symptoms) Flowsheet Row [facility] from 08/21/2024 in [facility] Office Visit from 07/19/2023 in [facility] Office Visit from 04/18/2023 in [facility] Sleep Domain T Score -- 57.7 61.86 Fatigue Domain T Score 52 56.21 58.38 Anxiety Domain T Score 56 48.72 48.87 Depression Domain T Score 57 46.25 47.97 Stigma Domain T Score -- 36.56 51.87 Emotional Behavior Dyscontrol T Score -- -- -- PAST HISTORY has a past medical history of Cocaine use, Depression, Fibroid, Multiple sclerosis (HCC), Smoking, and Stroke (cerebrum) ([facility]). has a current medication list which includes the following prescription(s): diclofenac (ec), ondansetron orally disintegrating, pregabalin, atorvastatin, lidocaine, duloxetine, ketorolac, ergocalciferol (vitamin d2), zeposia, hydrocortisone, baclofen, famotidine, acetaminophen, iv contrast, iv contrast, mirabegron, tizanidine, polyethylene glycol 3350, and ergocalciferol (vitamin d2). EXAM: BP 172/79 Pulse 61 LMP 04/28/2020 (Within Years) MSPT Results Flowsheet Row Office Visit from 07/19/2023 in [facility] Office Visit from 04/18/2023 in [facility] Office Visit from 10/27/2021 in [facility] Processing Speed Total Number Correct 45 46 40 Processing Speed Z score 0.42 0.51 -0.19 Dominant hand -- -- -- MDT Left Hand Time 24.54 27.5 -- MDT Right Hand Time 28.79 23.69 -- Walking Speed Test (25 feet) -- 8.56 -- Memory Z Score -- -- -- General Appearance: well appearing, in no acute distress Mental status evaluation during the interview and examination showed normal level of consciousness, orientation, language, memory, praxis, and higher intellectual function Affect: Normal Extraocular movements: full, without EVIN Facial movements: Intact bilaterally Speech: normal Muscle strength (#/5): Right Left Upper Extremity: Deltoids 5 5 Biceps 5 5 Triceps 5 5 Runner Worker 5 5 Dorsal interossei 5 5 Lower extremity: Iliopsoas 5- 5- Quadriceps 5 5 Hamstrings 5 5 Tibialis anterior 5 5 Gastrocnemius 5 5 Coordination: Upper extremity dexterity and rapid movements: Normal bilaterally Finger-nose: no dysmetria; coordination intact Heel-smith: no dysmetria; coordination intact Standing balance: very minimally impaired Standard gait: antalgic. Assistive device: independent [...] Zeposia for DMT which she tolerates well. Radiographically stable 07/2024. She denies new neurological symptoms but continues to struggle with chronic MS-sequale and secondary to past social history, such as chronic fatigue, back pain, muscle spasms, weakness, urinary dysfunction, cognitive dysfunction, constipation, and vision abnormalities. Given presented weakness on examination she warrants repeat MRI thoracic and lumbar spine to assess for orthopedic changes vs continued MS disease activity. As previously discussed, patient is unfortunately limited in follow ups with specialities/primary care due to geographical distance and consistent transportation. We agreed to the plan as below. She is to follow up in approximately 3 months as scheduled or sooner if clinically indicated. Exam is:Stable, [...] Continue Zeposia - MRI brain 07/2025 - MRI thoracic and lumbar spine - Labs: CBC diff, CMP, vitamin B12, a1c - OCT today - Consult [facility] ophthalmology - Add tizanidine 2mg twice daily for muscle spasms - Myrbetriq 25 mg daily for bladder symptoms - Recommendations as discussed at last visits: - reschedule with orthopedics - referrals: [facility], PT, OT - Follow up with Dr. Rothman as scheduled 01/08/25 Office Visit on 10/09/24 MRI THORACIC SPINE WO/W IVCON MRI LUMBAR SPINE WO/W IVCON COMPLETE BLOOD COUNT AND DIFFERENTIAL COMPREHENSIVE METABOLIC PANEL VITAMIN B12 HEMOGLOBIN A1C CONSULT TO OPHTHALMOLOGY Patient Health Education Discussed at Visit: Emotional Health/Wellness, Risks and Common side effects of MS medications, Stress management, Stretching, and Vitamin D supplementation I spent a total of 45 minutes on the date of the service which included preparing to see the patient, [id number] patient care, completing clinical documentation, obtaining and/or reviewing separately obtained history, performing a medically appropriate examination, counseling and educating the patient/family/caregiver, ordering medications, tests, or procedures, and care coordination (not separately reported). Raymond Kemp APRN.CNP [facility] documented in this encounter [facility] 10-09-2024 Note HNO ID: [id number] Author: RAYMOND KEMP APRN.CNP Service: ? Author Type: Nurse Practitioner Type: Progress Notes Filed: 10/09/2024 12:02 Note Text: [facility] FOLLOWUP/ESTABLISHED PATIENT VISIT PRINCIPAL NEUROLOGIC DIAGNOSIS: [...] disease modifying therapy and MS symptom management Usual treating team: Stephan/ Pedro The patient is unaccompanied. The patient was last seen 08/21/24, currently taking Zeposia. Since the patient's last visit the patient reports overall feeling stable. Issues with current therapy: Tolerating medication without side effects. INTERVAL HISTORY: Multiple ER visits since last visit - 09/23/24 muscle pain and cramping, acute on chronic - 09/13/24 URI symptoms x 7 days - 08/29/24 nausea/vomiting/diarrhea, headache Has continued to have a lot of lower back pain with radiating pain down her R leg, muscle spasms Normally toradol would work but now is not providing relief Working towards holistic approaches Has a membership to the [employer] and now is getting set up with her sober living house with trips which will transport her Looking forward to doing aqua therapy, strengthening Admits to 2 falls since last visit - legs gave out while standing up. Was having a lot of back pain that day Vision stable and sees [facility] locally Wears glasses Wants to establish with [facility] Continues to live with her significant other, Alissa, who is in sober living with her Patient reports she continues to be sober -- 6 months on 10/12/24 REVIEW OF SYSTEMS: Mood: PHQ9 responses reviewed and appear below Bladder: frequency and urgency Bowel: constipation, stable Pain: back pain continues Fatigue: significant Memory/Concentration: stable Neuro-QoL Functions (higher=better functioning) Flowsheet Row [facility] from 08/21/2024 in [facility] Office Visit from 07/19/2023 in [facility] Office Visit from 04/18/2023 in [facility] Upper Extremity Domain T Score 39 44.53 42.12 Lower Extremity Domain T Score 39 40.35 34.04 Cognitive Function Domain T Score 40 48.64 46.37 Positive Affect Well Being T Score -- -- -- Ability To Participate In Social Roles T Score 42 44.12 33.38 Satisfaction With Social Roles T Score 44 41.34 36.98 Neuro-QoL Symptoms (higher=worse symptoms) Flowsheet Row Distance Health from 08/21/2024 in [facility] Office Visit from 07/19/2023 in [facility] Office Visit from 04/18/2023 in [facility] Sleep Domain T Score -- 57.7 61.86 Fatigue Domain T Score 52 56.21 58.38 Anxiety Domain T Score 56 48.72 48.87 Depression Domain T Score 57 46.25 47.97 Stigma Domain T Score -- 36.56 51.87 Emotional Behavior Dyscontrol T Score -- -- -- PAST HISTORY has a past medical history of Cocaine use, Depression, Fibroid, Multiple sclerosis (HCC), Smoking, and Stroke (cerebrum) (HCC). has a current medication list which includes the following prescription(s): diclofenac (ec), ondansetron orally disintegrating, pregabalin, atorvastatin, lidocaine, duloxetine, ketorolac, ergocalciferol (vitamin d2), zeposia, hydrocortisone, baclofen, famotidine, acetaminophen, iv contrast, iv contrast, mirabegron, tizanidine, polyethylene glycol 3350, and ergocalciferol (vitamin d2). EXAM: BP 172/79 Pulse 61 LMP 04/28/2020 (Within Years) MSPT Results Flowsheet Row Office Visit from 07/19/2023 in [facility] Office Visit from 04/18/2023 in [facility] Office Visit from 10/27/2021 in [facility] Processing Speed Total Number Correct 45 46 40 Processing Speed Z score 0.42 0.51 -0.19 Dominant hand -- -- -- MDT Left Hand Time 24.54 27.5 -- MDT Right Hand Time 28.79 23.69 -- Walking Speed Test (25 feet) -- 8.56 -- Memory Z Score -- -- -- General Appearance: well appearing, in no acute distress Mental status evaluation during the interview and examination showed normal level of consciousness, orientation, language, memory, praxis, and higher intellectual function Affect: Normal Extraocular movements: full, without EVIN Facial movements: Intact bilaterally Speech: normal Muscle strength (#/5): Right Left Upper Extremity: Deltoids 5 5 Biceps 5 5 Tr (more content not included)... [facility] 09-29-2024 Telephone encounter Note RN spoke with patient, verified by name and . Patient advised she has had two recent ER visits (RN unable to see on care everywhere). She has had worsening MS symptoms and falls. RN offered a visit, patient would like in person at [place] location. RN assisted in holding an in person appointment with Raymond Kemp APRN.MAID HOUSEKEEPER on 10/09 at 8:45AM in [place]. Patient verbalized understanding. RN will forward to scheduling. SARAH Ribeiro [facility] 09-29-2024 Miscellaneous Notes RN spoke with patient, verified by name and . Patient advised she has had two recent ER visits (RN unable to see on care everywhere). She has had worsening MS symptoms and falls. RN offered a visit, patient would like in person at [place] location. RN assisted in holding an in person appointment with Raymond Kemp APRN.CNP on 10/09 at 8:45AM in [place]. Patient verbalized understanding. RN will forward to scheduling. SARAH Ribeiro Bryan is calling Raymond Kemp APRN.CNP today to request phone call. Pt states she was recently admitted and would like to talk about her symptoms she had along with possible school note. Please advise Patient has been identified by name and birthdate. Duration of symptoms: N/A Person calling: self Call patient at: at home [phone] (home) [phone] (cell) Was an appointment scheduled: No Closing statement: Results or non-symptom based questions: Thank you for calling [facility], your call will be returned within the next business day. Melanie Ferro documented in this encounter [facility] 09-26-2024 Telephone encounter Note Bryan is calling Raymond Kemp APRN.CNP today to request phone call. Pt states she was recently admitted and would like to talk about her symptoms she had along with possible school note. Please advise Patient has been identified by name and birthdate. Duration of symptoms: N/A Person calling: self Call patient at: at home [phone] (home) [phone] (cell) Was an appointment scheduled: No Closing statement: Results or non-symptom based questions: Thank you for calling [facility], your call will be returned within the next business day. Melanie Ferro [facility] 09-25-2024 Telephone encounter Note PDMP website checked and validated. All prescriptions have been APPROPRIATELY filled. No suspicious activity was identified. 09/25/2024 by Raymond Kemp APRN.CNP The following approved medication requests have been transmitted electronically. Requested Prescriptions Signed Prescriptions Disp Refills pregabalin (LYRICA) 300 mg capsule 60 capsule 5 Sig: Take 1 capsule by mouth two times a day for 30 days. Authorizing Provider: RAYMOND KEMP atorvastatin (LIPITOR) 20 mg tablet 30 tablet 5 Sig: Take 1 tablet by mouth once daily. Authorizing Provider: RAYMOND KEMP APRN.CNP [facility] 09-25-2024 Miscellaneous Notes PDMP website checked and validated. All prescriptions have been APPROPRIATELY filled. No suspicious activity was identified. 09/25/2024 by Raymond Kemp APRN.CNP The following approved medication requests have been transmitted electronically. Requested Prescriptions Signed Prescriptions Disp Refills pregabalin (LYRICA) 300 mg capsule 60 capsule 5 Sig: Take 1 capsule by mouth two times a day for 30 days. Authorizing Provider: RAYMOND KEMP atorvastatin (LIPITOR) 20 mg tablet 30 tablet 5 Sig: Take 1 tablet by mouth once daily. Authorizing Provider: RAYMOND KEMP APRN.CNP Source : call from patient requesting refill. Delivery : e-script Requested Prescriptions Pending Prescriptions Disp Refills pregabalin (LYRICA) 300 mg capsule 60 capsule 5 Sig: Take 1 capsule by mouth two times a day for 30 days. atorvastatin (LIPITOR) 20 mg tablet 30 tablet 5 Sig: Take 1 tablet by mouth once daily. DX : Patient last seen: 08/21/2024 Next Appointment : 01/08/2025 Maria A Walsh documented in this encounter [facility] 09-25-2024 Telephone encounter Note Source : call from patient requesting refill. Delivery : e-script Requested Prescriptions Pending Prescriptions Disp Refills pregabalin (LYRICA) 300 mg capsule 60 capsule 5 Sig: Take 1 capsule by mouth two times a day for 30 days. atorvastatin (LIPITOR) 20 mg tablet 30 tablet 5 Sig: Take 1 tablet by mouth once daily. DX : Patient last seen: 08/21/2024 Next Appointment : 01/08/2025 Maria A Walsh [facility] 09-05-2024 Telephone encounter Note Letter written and printed to be faxed to below Raymond Kemp APRN.CNP September 05, 2024 8:39 AM [facility] 09-05-2024 Miscellaneous Notes Letter written and printed to be faxed to below Raymond Kemp APRN.CNP September 05, 2024 8:39 AM Bryan is calling Raymond Kemp APRN.CNP today with concern regarding Letter. She is asking for a letter that states she needs a handicap accessible apartment. Please fax to [phone] or [phone]. Please advise. Patient has been identified by name and birthdate. Person calling: self Call patient at: on cell [phone] (home) [phone] (cell) Was an appointment scheduled: No Closing statement: Results or non-symptom based questions: Thank you for calling [facility], your call will be returned within the next business day. Morena Van documented in this encounter [facility] 09-04-2024 Telephone encounter Note Bryan is calling Raymond Kemp APRN.CNP today with concern regarding Letter. She is asking for a letter that states she needs a handicap accessible apartment. Please fax to [phone] or [phone]. Please advise. Patient has been identified by name and birthdate. Person calling: self Call patient at: on cell [phone] (home) [phone] (cell) Was an appointment scheduled: No Closing statement: Results or non-symptom based questions: Thank you for calling [facility], your call will be returned within the next business day. Morena Van [facility] 08-28-2024 Note HNO ID: [id number] Author: MAGALI GREGORY RPh Service: ? Author [...] been reviewed prior to dispensing the medication. 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 [facility] SPECIALTY CLINICAL ASSESSMENT - NEUROLOGY V7: [...] Treatment Duration: No information available Judy Templeton (Hot Worker) [facility] 08-21-2024 Instructions Raymond Kemp APRN.SHAYLA - 08/21/2024 2:40 PM EST PLAN: - Continue Zeposia - MRI brain 07/2025 - Labs: CBC diff, CMP 01/2025 - OCT - Recommendations as discussed at last visit: - reschedule with PCP - reschedule with optometry - reschedule with orthopedics (requires xray before hand) - referrals as previously discussed: [facility], PT, OT - Consider pelvic floor therapy and/or OAB medications - Will mail updated letters to patient ([facility], [address], in [place], [place]) - Follow up in January 2025 documented in this encounter [facility] 08-21-2024 History of Present illness Narrative Images from the original note were not included. [facility] VIRTUAL FOLLOWUP/ESTABLISHED PATIENT VISIT PRINCIPAL NEUROLOGIC [...] disease modifying therapy Usual treating team: Stephan/ Perdo The patient is unaccompanied. The patient was [...] visit. Either the patient or their legal medical claims representative has been informed of the risks and benefits of -- and alternatives to -- treatment through a remote evaluation and consents to proceed with the evaluation remotely. 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, sober for 5 months Living at [facility] as part of sober living through [facility] Alissa (partner) is going through sobriety as [...] Flowsheet Row Distance Health from 08/21/2024 in [facility] Office Visit from 07/19/2023 in [facility] Office Visit from 04/18/2023 in [facility] Upper Extremity Domain T Score 39 44.53 42.12 Lower Extremity Domain T Score 39 40.35 34.04 Cognitive Function Domain T Score 40 48.64 46.37 Positive Affect Well Being T Score -- -- -- Ability To Participate In Social Roles T Score 42 44.12 33.38 Satisfaction With Social Roles T Score 44 41.34 36.98 Neuro-QoL Symptoms (higher=worse symptoms) Flowsheet Row Distance Health from 08/21/2024 in [facility] Office Visit from 07/19/2023 in [facility] Office Visit from 04/18/2023 in [facility] Sleep Domain T Score -- 57.7 61.86 Fatigue Domain T Score 52 56.21 58.38 Anxiety Domain T Score 56 48.72 48.87 Depression Domain T Score 57 46.25 47.97 Stigma Domain T Score -- 36.56 51.87 Emotional Behavior Dyscontrol T Score -- -- -- has a past medical history of Cocaine use, Depression, Fibroid, Multiple sclerosis (HCC), Smoking, and Stroke (cerebrum) (HCC). has a current medication list which includes the following prescription(s): ergocalciferol (vitamin d2), zeposia, pregabalin, lidocaine, duloxetine, ketorolac, ergocalciferol (vitamin d2), hydrocortisone, atorvastatin, baclofen, famotidine, and acetaminophen. EXAM: LMP 04/28/2020 (Within Years) MSPT Results Flowsheet Row Office Visit from 07/19/2023 in [facility] Office Visit from 04/18/2023 in [facility] Office Visit from 10/27/2021 in [facility] Processing Speed Total Number Correct 45 [...] before hand) - referrals as previously discussed: [facility], PT, OT - Consider pelvic floor therapy and/or OAB medications - Will mail updated letters to patient ([facility], room [address], in [place], [place]) - Follow up in January 2025 [facility] website checked and validated. All prescriptions have been APPROPRIATELY filled. No suspicious activity was identified. 08/21/2024 by Raymond Kemp APRN.SHAYLA [facility] on 08/21/24 COMPLETE BLOOD COUNT AND DIFFERENTIAL [...] results to the patient/family/caregiver. Raymond Kemp APRN.CNP [facility] documented in this encounter [facility] 08-21-2024 Note HNO ID: [id number] Author: RAYMOND KEMP APRN.CNP Service: ? Author Type: Nurse Practitioner Type: Progress Notes Filed: 08/21/2024 14:42 Note Text: [facility] VIRTUAL FOLLOWUP/ESTABLISHED PATIENT VISIT PRINCIPAL NEUROLOGIC [...] visit. Either the patient or their legal medical claims representative has been informed of the risks and benefits of -- and alternatives to -- treatment through a remote evaluation and consents to proceed with the evaluation remotely. 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, sober for 5 months Living at [facility] as part of sober living through [facility] Alissa (partner) is going through sobriety as [...] next week Neuro-QoL Functions (higher=better functioning) Flowsheet [facility] from 08/21/2024 in [facility] Office Visit from 07/19/2023 in [facility] Office Visit from 04/18/2023 in [facility] Upper Extremity Domain T Score 39 44.53 42.12 Lower Extremity Domain T Score 39 40.35 34.04 Cognitive Function Domain T Score 40 48.64 46.37 Positive Affect Well Being T Score -- -- -- Ability To Participate In Social Roles T Score 42 44.12 33.38 Satisfaction With Social Roles T Score 44 41.34 36.98 Neuro-QoL Symptoms (higher=worse symptoms) Flowsheet [facility] from 08/21/2024 in [facility] Office Visit from 07/19/2023 in [facility] Office Visit from 04/18/2023 in [facility] Sleep Domain T Score -- 57.7 61.86 Fatigue Domain T Score 52 56.21 58.38 Anxiety Domain T Score 56 48.72 48.87 Depression Domain T Score 57 46.25 47.97 Stigma Domain T Score -- 36.56 51.87 Emotional Behavior Dyscontrol T Score -- -- -- has a past medical history of Cocaine use, Depression, Fibroid, Multiple sclerosis ([facility]), Smoking, and Stroke (cerebrum) ([facility]). has a current medication list which includes the following prescription(s): ergocalciferol (vitamin d2), zeposia, pregabalin, lidocaine, duloxetine, ketorolac, ergocalciferol (vitamin d2), hydrocortisone, atorvastatin, baclofen, famotidine, and acetaminophen. EXAM: LMP 04/28/2020 (Within Years) MSPT Results Flowsheet [facility] Office Visit from 07/19/2023 in [facility] Office Visit from 04/18/2023 in [facility] Office Visit from 10/27/2021 in [facility] Processing Speed Total Number Correct 45 [...] and higher intellec (more content not included)... [facility] 08-04-2024 History of Present illness Narrative [facility] [...] been reviewed prior to dispensing the medication. Loom Mechanic Assessment Patient confirmed: Yes Med/dose confirmed: Yes Supplies needed: No supplies needed Missed doses: No Estimated days supply on hand: (7-8) Next cycle/dose due: 08/04/24 Copay amount: 0 Payment confirmed: Yes Delivery method: FedEx Signature required: Waived on patient request Delivery address: [address] [place], [place] [address] [id number] Delivery date: 08/07/24 Questions or concerns for [...] facility-administered medications on file prior to visit. [facility] RX SPECIALTY CLINICAL ASSESSMENT - NEUROLOGY V7: [...] Treatment Duration: No information available Judy Templeton (Hot Worker) Magali Gregory RPh documented in this encounter [facility] 08-04-2024 Note HNO ID: [id number] Author: MAGALI GREGORY RPh Service: ? Author [...] been reviewed prior to dispensing the medication. Loom Mechanic Assessment Patient confirmed: Yes Med/dose confirmed: Yes Supplies needed: No supplies needed Missed doses: No Estimated days supply on hand: (7-8) Next cycle/dose due: 08/04/24 Copay amount: 0 Payment confirmed: Yes Delivery method: FedEx Signature required: Waived on patient request Delivery address: [address] [place], [place] [address] [address] Delivery date: 08/07/24 Questions or concerns for [...] facility-administered medications on file prior to visit. [facility] RX SPECIALTY CLINICAL ASSESSMENT - NEUROLOGY V7: [...] Treatment Duration: No information available Judy Templeton (Hot Worker) Magali Gregory [facility] 08-01-2024 Note HNO ID: [id number] Author: MICHI GOMEZ RT(R) Service: ? Author [...] PATIENT PRESENTS WITH AN IMPLANTABLE OR ATTACHED GEOMETRICIAN: No ALLERGIES: Reviewed and unchanged CONTRAST ALLERGY: NO. EXAM: MRI - CONTRAST TYPE: GROUP II PERIPHERAL IV DATA: Ambulatory: A peripheral IV was started in the Left antecubital site with a Angio cath: 24 gauge. RADIOLOGY DEPARTMENT: ; Exam(s) Completed: Head: Multiple Sclerosis SIGNATURE: RT Krystal(R) PATIENT NAME: Bryan Cruz DATE: August 01, 2024 TIME: 10:18 AM [facility] 08-01-2024 History of Present illness Narrative Radiology [...] PATIENT PRESENTS WITH AN IMPLANTABLE OR ATTACHED GEOMETRICIAN: No ALLERGIES: Reviewed and unchanged CONTRAST ALLERGY: NO. EXAM: MRI - CONTRAST TYPE: GROUP II PERIPHERAL IV DATA: Ambulatory: A peripheral IV was started in the Left antecubital site with a Angio cath: 24 gauge. RADIOLOGY DEPARTMENT: MR; Exam(s) Completed: Head: Multiple Sclerosis SIGNATURE: RT Krystal(R) PATIENT NAME: Bryan Cruz DATE: August 01, 2024 TIME: 10:18 AM documented in this encounter [facility] 07-15-2024 Telephone encounter Note LVM to call office to schedule. Will need a [address] Gomez. [facility] 07-15-2024 Telephone encounter Note Images from the original note were not included. Naheed Gomez, Eboni Wiggins; P Migs/Cpp Scheduling Pool; Freda Hernandez, SCABBLER.MAID HOUSEKEEPER Can we pls schedule an office hysteroscopy, polypectomy w ri using rigid scope and Resectr. @Freda- can you pls FYI the pt and make sure she agrees. Thmilton C [facility] 07-15-2024 Miscellaneous Notes LVM to call office to schedule. Will need a [address] Gomez. Images from the original note were not included. Naheed Gomez, Eboni Wiggins; P Migs/Cpp Scheduling Pool; Freda Hernandez APRN.MAID HOUSEKEEPER Can we pls schedule an office hysteroscopy, polypectomy w ri using rigid scope and Resectr. @Gile- can you pls FYI the pt and make sure she agrees. Thx C documented in this encounter [facility] 07-10-2024 Note DISCHARGE SUMMARY [address] Bryan Cruz Date of : 1970 53 [...] areas bid vitamin D2 ergocalciferol 1.25 MG (79865 UT) capsule Commonly known as: DRISDOL Zeposia [...] [place] MD I have personally reviewed the sec reporting consultant notes, nursing notes, therapy and allied [...] are di (more content not included)... [facility] 07-10-2024 History of Present illness Narrative [...] physical therapy at discharge - FU at [facility] for MS Teaching Physician/SCABBLER/PA Note: I saw and evaluated the patient. [...] not reported separately) Referring/communicating with other health healthcare liaison - when not reported separately Charting in [facility] Alva Ziegler MD Neurology/Neurocritical Care Neurology service pager (for floor and ED consults): [phone] Hospital Medicine Progress Note Bryan Cruz Age [age] year old female [id number] AC8-709/2 Admitted 07/07/2024 11:09 AM Hospital Day: [...] lovenox CODE: Full Code DISPO: [facility] eval. Yousif Gillette MD CASE MANAGEMENT Patient is awaiting MRI procedure prior to discharge. CM finds no identifiable homegoing needs at this time. CM remains available should needs arise. Samira Dubon CHILD SUPPORT CASE OFFICER Inpatient Assembling Machine OperatorCarpentry Professional [phone] Available Sunday-Sunday 8AM-6PM 07/08/24 1459 Assessment and [...] ABUSE SERVICES Unknown ADMISSION INSURANCE Medicaid Medicaid [place] - [place] Medicaid TRANSPORTATION TO AND/OR FROM APPOINTMENTS Insurance Arranged Transportation HOME OXYGEN No HOME HEALTH CARE PRIOR TO ADMISSION No DIALYSIS No DISCUSSSED WHAT HELP PATIENT WOULD NEED Yes SDOH Completed? Yes SDOH Risks Addressed - Do Not complete until all required elger are completed Yes DISCHARGE DISPOSITION Home CM met with patient bedside. Patient provided the above information. Patient states she lives with her aunt. She uses provide a ride to get to her appointments. Preferred pharmacy is [facility]. PT/OT has seen patient and has cleared her with no needs. CM finds no current homegoing needs. CM will continue to follow in the event needs arise. Samira Dubon CHILD SUPPORT CASE OFFICER Inpatient Assembling Machine OperatorCarpentry Professional [phone] Available Sunday-Sunday 8AM-6PM [facility] Medicine Progress Note Bryan Cruz Age [age] year old female [id number] [id number]/2 Admitted 07/07/2024 11:09 AM Hospital Day: [...] lovenox CODE: Full Code DISPO: [facility] pending neuro eval. Yousif Gilltete MD 07/07/242021 Admit Note (Completed by Receiving Unit) Arrival Time: 2021 Arrived to: 8 [facility] Arrived from: ED Mode of Transport Wheelchair Transported by: Patient Transporter Admission Note Addendum Admission Attire Dressed in hospital gown Patient Behavior Calm Affect WNL documented in this encounter [facility] 07-09-2024 Evaluation + Plan note Associated [...] 300mg BID Restart lidocaine patch after MRI. [facility] 07-09-2024 Evaluation + Plan note Associated Problem(s): Morbid obesity with BMI of 40.0-44.9, adult Encourage lifestyle changes, pt stopped cocaine use in remission. Encourage tobacco cessation [facility] 07-09-2024 Evaluation + Plan note Associated Problem(s): History of cocaine abuse (HCC) In remission [facility] 07-09-2024 Evaluation + Plan note Associated Problem(s): Current every day smoker Encourage cessation, offer nicotine replacement [facility] 07-09-2024 Evaluation + Plan note Associated Problem(s): Vitamin D deficiency Mild low levels, continue vitamin D replacement supplementation [facility] 07-09-2024 Evaluation + Plan note Associated Problem(s): Hyperlipidemia Continue lipitor 20mg [facility] 07-09-2024 Evaluation + Plan note Associated Problem(s): Shortness of breath Echocardiogram normal and reassuring [facility] 07-09-2024 Evaluation + Plan note Associated Problem(s): Hyperlipidemia, unspecified hyperlipidemia type Cont lipitor 20mg daily [facility] 07-09-2024 Evaluation + Plan note Associated Problem(s): Dyspnea, unspecified type (Resolved 07/09/2024) F/u echocardiogram [facility] 07-09-2024 Evaluation + Plan note Associated Problem(s): Major depressive disorder in partial remission, unspecified whether recurrent (HCC) Cont cymbalta. [facility] 07-09-2024 Miscellaneous Notes Associated Problem(s): Multiple [...] VSS, COVID-flu negative documented in this encounter [facility] 07-09-2024 Note Hospital Medicine Pr chana Note Bryan Cruz Age [age] year old female [id number] AC8-709/2 Admitted 07/07/2024 11:09 AM Hospital Day: [...] lovenox CODE: Full Code DISPO: [facility] pending neuro eval. Yousif Gillette MD [facility] 07-09-2024 Note CASE MANAGEMENT Patient is awaiting MRI procedure prior to discharge. CM finds no identifiable homegoing needs at this time. CM remains available should needs arise. Samira Dubon RN BSN Inpatient Assembling Machine OperatorCarpentry Professional [phone] Available Sunday-Sunday 8AM-6PM [facility] 07-08-2024 Consult note Formatting of th [...] on discharge. - orthostatic blood pressures Teaching Physician/SCABBLER/PA Note: I saw and evaluated the patient. I personally performed (or reperformed) the physical exam and medical decision?making components of the visit. I reviewed the student documentation, copying appropriate sections into my note, and verified the findings in the note as written, or edited the note, as appropriate. Alva Ziegler MD Neurology/Neurocritical Care Neurology service pager (for floor and ED consults): [phone] [facility] 07-08-2024 Consult note Formatting of th [...] on discharge. - orthostatic blood pressures Teaching Physician/SCABBLER/PA Note: I saw and evaluated the patient. I personally performed (or reperformed) the physical exam and medical decision?making components of the visit. I reviewed the student documentation, copying appropriate sections into my note, and verified the findings in the note as written, or edited the note, as appropriate. Alva Ziegler MD Neurology/Neurocritical Care Neurology service pager (for floor and ED consults): [phone] Associated Order(s): IP PHYSICAL THERAPY SERVICE REQUEST [...] Patient Subjective: I missed my trip to [place] (re: to see family) Patient Identified Goal(s): I want to take a shower SERVICES PROGRAM MANAGER Status: - living in a sober living [...] With Patients permission ordered no equipment via Entrisphere Order. If any questions contact [facility] DME Provider at [phone]. 6 Clicks Basic Mobility PT 07/08/24 Difficulty [...] NA = Not Assessed, I = Independent, AZ = Modified Independent, Sup = Supervised, Set [...] Dep Max Mod Min CG CS DS AZ I Set-Up Comment Feeding x Meal tray [...] Dep Max Mod Min CG CS DS AZ I Set-Up Comment Toilet Transfers x To/from [...] With Patients permission ordered no equipment via Entrisphere Order. If any questions contact [facility] DME Provider at [phone]. 6 Clicks Daily Activity OT 07/08/24 Help [...] Guard Assist/Supervision 4 - Non = Modified [place]/Independent ASSESSMENT: Patient is functionally appropriate for discharge home once medically cleared. No further Occupational Therapy Services reccommended at this time. PLAN: Bryan Cruz will be d/c acute OT services able to discuss the evaluation findings and treatment plan with the patient/family. The patient/family did participate in the development of plan and goals. Shae Zuleta OTR/L NA = Not Assessed, I = Independent, AZ = Modified Independent, Sup = Supervised, Set up = Physical Assistance for Set-up Only, Min = Minimal Assistance, Mod = Moderate Assistance, Max = Max assistance; Dep = Dependent; AROM = Active Range of Motion;PROM=Passive Range of Motion; MMT = Manual Muscle Test; UB = Upper Body; LB = Lower Body documented in this encounter [facility] 07-08-2024 Note 07/08/24 8209 Assessment and Discharge Planning Evaluation READMISSION LESS THAN 30 DAYS No READMISSION RISK SCORE IS Low Risk INTERVIEWED Patient COGNITIVE STATUS Oriented FUNCTIONAL STATUS PRIOR TO ADMISSION Ambulatory HAS ADVANCE DIRECTIVE ON FILE No LIVING SITUATION Home with Family CONNECTED TO MENTAL HEALTH SERVICES Unknown CONNECTED TO COMMUNITY SERVICES Unknown CONNECTED TO SUBSTANCE ABUSE SERVICES Unknown ADMISSION INSURANCE Medicaid Medicaid [facility] - [place] Medicaid TRANSPORTATION TO AND/OR FROM APPOINTMENTS Insurance [...] get to her appointments. Preferred pharmacy is [facility]. PT/OT has seen patient and has cleared her with no needs. CM finds no current homegoing needs. CM will continue to follow in the event needs arise. Samira Dubon RN BSN Inpatient Assembling Machine OperatorCarpentry Professional [phone] Available Sunday-Sunday 8AM-6PM [facility] 07-08-[facility] Evaluation + Plan note Associated Problem(s): Multiple sclerosis exacerbation (HCC) Continue zeposia at discharge, pt ask facility to bring in for dispense. Neurology to evaluate today, ophthalmology asking to see after imaging. Will coordinate plan with ophtho based on recommendations. [facility] 07-08-2024 Evaluation + Plan note Associated Problem(s): Morbid obesity with BMI of 40.0-44.9, adult Encourage lifestyle changes, pt stopped cocaine use in remission. Encourage tobacco cessation [facility] 07-08-2024 Evaluation + Plan note Associated Problem(s): History of cocaine abuse (HCC) In remission [facility] 07-08-2024 Evaluation + Plan note Associated Problem(s): Current every day smoker Encourage cessation, offer nicotine replacement [facility] 07-08-2024 Evaluation + Plan note Associated Problem(s): Vitamin D deficiency Mild low levels, continue vitamin D replacement supplementation [facility] 07-08-2024 Evaluation + Plan note Associated Problem(s): Hyperlipidemia Continue lipitor 20mg [facility] 07-08-2024 Evaluation + Plan note Associated Problem(s): Shortness of breath Obtain echocardiogram given findings on CTA. F/u NT-pro BNP. [facility] 07-08-2024 Evaluation + Plan note Associated Problem(s): Cardiac insufficiency (HCC) (Resolved 07/09/2024) F/u echo [facility] 07-08-2024 Evaluation + Plan note Associated Problem(s): Hyperlipidemia, unspecified hyperlipidemia type Cont lipitor 20mg daily [facility] 07-08-2024 Evaluation + Plan note Associated Problem(s): Dyspnea, unspecified type (Resolved 07/09/2024) F/u echocardiogram [facility] 07-08-2024 Evaluation + Plan note Associated Problem(s): Major depressive disorder in partial remission, unspecified whether recurrent (HCC) Cont cymbalta. Pt does not take zoloft. [facility] 07-08-2024 Note Hospital Medicine Pr ogress Note Bryan Cruz Age [age] year old female [id number] AC8-709/2 Admitted 07/07/2024 11:09 AM Hospital Day: [...] lovenox CODE: Full Code DISPO: return to [facility]it[facility]iary pending neuro eval. Yousif Gillette MD [facility] 07-08-2024 Consult note Associated Order (s): [...] Patient Subjective: I missed my trip to [place] (re: to see family) Patient Identified Goal(s): I want to take a shower SERVICES PROGRAM MANAGER Status: - living in a sober living [...] With Patients permission ordered no equipment via Entrisphere Order. If any questions contact [facility] DME Provider at [phone]. 0 Clicks Basic Mobility PT 07/08/24 Difficulty turning [...] NA = Not Assessed, I = Independent, AZ = Modified Independent, Sup = Supervised, Set up = Physical Assistance for Set-up Only, Min = Minimal Assistance, Mod = Moderate Assistance, Max = Max assistance; Dep = Dependent; AROM = Active Range of Motion; PROM = Passive Range of Motion; MMT = Manual Muscle Test; LE = Lower Extremity [facility] 07-08-2024 Note PHYSICAL THERAPY ACU TE EVALUATION [...] Patient Subjective: I missed my trip to [place] (re: to see family) Patient Identified Goal(s): I want to take a shower SERVICES PROGRAM MANAGER Status: - living in a sober living [...] With Patients permission ordered no equipment via Entrisphere Order. If any questions contact [facility] DME Provider at [phone]. 6 Clicks Basic Mobility PT 07/08/24 Difficulty [...] NA = Not Assessed, I = Independent, AZ = Modified Independent, Sup = Supervised, Set up = Physical Assistance for Set-up Only, Min = Minimal Assistance, Mod = Moderate Assistance, Max = Max assistance; Dep = Dependent; AROM = Active Range of Motion; P (more content not included)... [facility] 07-08-2024 Consult note Associated Order (s): [...] Dep Max Mod Min CG CS DS AZ I Set-Up Comment Feeding x Meal tray [...] Assistance Level Dep Max Mod Min CG DS AZ I Set-Up Comment Toilet Transfers x To/from [...] With Patients permission ordered no equipment via Entrisphere Order. If any questions contact [facility] DME Provider at [phone]. 6 Clicks Daily Activity OT 07/08/24 Help [...] Guard Assist/Supervision 4 - Non = Modified [place]/Independent ASSESSMENT: Patient is functionally appropriate for discharge home once medically cleared. No further Occupational Therapy Services reccommended at this time. PLAN: Bryan Cruz will be d/c acute OT services able to discuss the evaluation findings and treatment plan with the patient/family. The patient/family did participate in the development of plan and goals. Shae Zuleta OTR/L NA = Not Assessed, I = Independent, AZ = Modified Independent, Sup = Supervised, Set up = Physical Assistance for Set-up Only, Min = Minimal Assistance, Mod = Moderate Assistance, Max = Max assistance; Dep = Dependent; AROM = Active Range of Motion;PROM=Passive Range of Motion; MMT = Manual Muscle Test; UB = Upper Body; LB = Lower Body [facility] 07-08-2024 Note OCCUPATIONAL THERAPY INITIAL EVALUATION Patient [...] Dep Max Mod Min CG CS DS AZ I Set-Up Comment Feeding x Meal tray [...] Dep Max Mod Min CG CS DS AZ I Set-Up Comment Toilet Transfers x To/from [...] With Patients permission ordered no equipment via Entrisphere Order. If any questions contact [facility] DME Provider at [phone]. 6 Clicks Daily Activity OT 07/08/24 Help [...] Guard Assist/Supervision 4 - Non = Modified [place]/Independent ASSESSMENT: Patient is functionally appropriate for discharge home once medically cleared. No further Occupational Therapy Services reccommended at this time. PLAN: Bryan Cruz will be d/c acute OT services able to discuss the evaluation findings and treatment plan with the patient/family. The patient/family did participate in the development of plan and goals. Caitly (more content not included)... [facility] 07-07-2024 Emergency department Note Transition of [...] Procedure Abnormality Status --------- ------ CBC WITH DIFFERENTIAL[[id number]] Abnormal Final result Please view results for [...] patch (2 Patches Transdermal Patch Applied 07/07/24 1455) baclofen (LIORESAL) 20 MG tablet (has no [...] (LYRICA) capsule (300 mg Oral Given 07/07/24 170) No active isolations Vitals Recorded in This [...] new symptoms No Please contact MARILU SMITH [facility] 07-07-2024 Emergency department Note Transition of Care; [...] Procedure Abnormality Status --------- ------ CBC WITH DIFFERENTIAL[[id number]] Abnormal Final result Please view results for [...] patch (2 Patches Transdermal Patch Applied 07/07/24 145) baclofen (LIORESAL) 20 MG tablet (has no [...] (ROBAXIN) tablet (750 mg Oral Given 07/07/24 145) pregabalin (LYRICA) capsule (300 mg Oral Given 07/07/241704) No active isolations Vitals Recorded in This [...] of results given to . Jodi Jose, MUKUND . Pt to edxr, ct. Pt given gown, encouraged to change. ES documented in this encounter [facility] 07-07-2024 Evaluation + Plan note Associated Problem(s): Multiple sclerosis exacerbation (HCC) Continue zeposia at discharge, pt ask facility to bring in for dispense. Will review presentation with neurology as well as indication for repeat imaging. Given stable MR C spine findings within 2 months Consider ophthalmology eval given blurred vision. [facility] 07-07-2024 Evaluation + Plan note Associated Problem(s): Vitamin D deficiency Check levels, offer vitamin D replacement supplementation [facility] 07-07-2024 Evaluation + Plan note Associated Problem(s): Hyperlipidemia Continue lipitor 20mg [facility] 07-07-2024 Evaluation + Plan note Associated Problem(s): History of cocaine abuse (HCC) In remission [facility] 07-07-2024 Evaluation + Plan note Associated Problem(s): Current every day smoker Encourage cessation, offer nicotine replacement [facility] 07-07-2024 Evaluation + Plan note Associated Problem(s): Morbid obesity with BMI of 40.0-44.9, adult Encourage lifestyle changes, pt stopped cocaine use in remission. Encourage tobacco cessation [facility] 07-07-2024 Evaluation + Plan note Associated Problem(s): Shortness of breath Obtain echocardiogram given findings on CTA. F/u NT-pro BNP. [facility] 07-07-2024 Hospital Note Formatting of t his [...] insufficiency. Cardiac enzymes normal VSS, COVID-flu negative [facility] 07-07-2024 History and physical note Hospital Medicine [...] to sober living home. Yousif Gillette MD [facility] 07-07-2024 History and physical note Hospital [...] Yousif Gillette MD documented in this encounter [facility] 07-07-2024 Emergency department Note notified of critical POTASIUM value of 7.8. Hard copy of results given to . Jodi Jose, MUKUND . [facility] 07-07-2024 Emergency department Note Pt to edxr, ct. Pt given gown, encouraged to change. ES [facility] Work Phone: 07-04-2024 Note HNO ID: [id number] Author: MAGALI GREGORY RPh Service: ? Author [...] been reviewed prior to dispensing the medication. Loom Mechanic Assessment Patient confirmed: Yes Med/dose confirmed: Yes Missed doses: No Estimated days supply on hand: 7 Next cycle/dose due: 07/09/24 Copay amount: 0 Delivery method: FedEx Signature required: Waived on patient request Delivery address: [address] [place] [address] Delivery date: 07/11/24 Questions or concerns for [...] facility-administered medications on file prior to visit. [facility] CLINICAL ASSESSMENT - NEUROLOGY V7: [...] Pharmacy, Neurology, Cardiology, AND Infectious Disease P: [phone] F: [phone] Magali Gregory RPh [facility] 07-02-2024 Telephone encounter Note The following approved medication requests have been transmitted electronically. Requested Prescriptions Signed Prescriptions Disp Refills ozanimod (ZEPOSIA) 0.92 mg capsule 30 capsule 3 Sig: Take 1 capsule by mouth once daily. Authorizing Provider: RAYMOND KEMP APRN.CNP [facility] 07-02-2024 Miscellaneous Notes The following approved medication [...] Magali Gregory RPh documented in this encounter [facility] 07-02-2024 Telephone encounter Note Next appt with you 07/17/2024 Requested Prescriptions Pending Prescriptions Disp Refills ozanimod (ZEPOSIA) 0.92 mg capsule 30 capsule 3 Sig: Take 1 capsule by mouth once daily. Obtain blood work for further refills. Thanks! Magali Gregory RPh [facility] 06-30-2024 Telephone encounter Note 2nd attempt to reach patient, unable to leave voicemail, mailbox has not been set up. 2nd Elix[employer]art message sent. [facility] 06-30-2024 Miscellaneous Notes 2nd attempt to reach patient, unable to leave voicemail, mailbox has not been set up. 2nd MyChart message sent. documented in this encounter [facility] 06-30-2024 Telephone encounter [facility]. All prescriptions have [...] Kemp APRN.CNP June 30, 2024 8:38 AM [facility] 06-30-2024 Miscellaneous Notes [facility] and [facility]. All prescriptions have [...] Would like a refill sent to the [facility] [address] in [place]. Order pended. -States would like an appt [...] first for input. documented in this encounter [facility] 06-30-2024 Telephone encounter Note -Pt calling in to office. Pt identified by name and date. -Pt states she called to request a refill on her Lyrica and an appt with her NEUR provider. -States will take her last Lyrica tablet tomorrow. [facility] [place] Order pended. -States would like an appt [...] message sent to provider first for input. [facility] 06-17-2024 Note HNO ID: [id number] Author: FREDA HERNANDEZ APRN.MAID HOUSEKEEPER Service: ? Author Type: Nurse Practitioner Type: Progress Notes Filed: 06/17/2024 10:53 Note Text: [facility] [facility] PATIENT NAME: Bryan Cruz PCP: Sandro Hinojosa [...] Live Births4 Gy (more content not included)... [facility] 06-17-2024 History of Present illness Narrative Images from the original note were not included. 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 Schedule with [facility] surgeon for hysterectomy consult. I will reach out to surgeon once scheduled to discuss emb and their desired plan. EMB completed 06/05/2024- VERY SCANT SPECIMEN Co-testing up to date CBC 05/08/2024 Hgb 10.3 TSH 08/30/2023 1.810 HA1C 08/30/2023 6.3- reordered today Freda Hernandez APRN.MAID HOUSEKEEPER June 17, 2024 10:34 AM documented in this encounter [facility] 06-10-2024 Note HNO ID: [id number] Author: DEJON DEL TORO MD Service: ? Author Type: Physician Type: Progress Notes Filed: 06/10/2024 17:09 Note Text: Bryan Cruz is a 53 year old female who presented for monitoring tech ultrasound today. Encounter Diagnosis ICD-10-CM 1. PMB (postmenopausal bleeding) N95.0 Please see report under imaging tab. Dejon Del Toro MD June 10, 2024 4:23 PM [facility] 06-10-2024 History of Present illness Narrative Bryan Cruz is a 53 year old female who presented for monitoring tech ultrasound today. Encounter Diagnosis ICD-10-CM 1. PMB (postmenopausal bleeding) N95.0 Please see report under imaging tab. Dejon Del Toro MD June 10, 2024 4:23 PM documented in this encounter [facility] 06-05-2024 Note Freda Hernandez APRN.CNP 06/05/2024 2:30 PM ENDOMETRIAL BIOPSY PROCEDURE Date/Time: 06/05/2024 2:27 PM Performed by: Freda Hernandez APRN.CNP Authorized by: Freda Hernandez APRN.CNP Diagnosis: (N95.0) PMB (postmenopausal bleeding) Patient's last menstrual period was 04/28/2020 (within years). Informed Consent Consent Obtained: Written [place] Protocol A moment to CARE was completed. [...] Plan of Care Visit completed when applicable [facility] 06-05-2024 Note There is no definiti ve endometrial tissue present for evaluation in this sampling. [facility] Comment on above: Order Comment: Speci men Type: TISSUE SPECIMENOrdering Facility: [facility] Address: [address] [place] [address] [place] [address] Performed By: #### S ####[facility] [id number] [place] [id number] [place] [facility] 06-05-2024 Note HNO ID: [id number] Author: KYLER GRAY MA Service: ? Author Type: Lead Ramp Service Man Type: Progress Notes Filed: 06/05/2024 14:30 Note Text: Exam chaperoned by Kyler Gray MA June 05, 2024 2:10 PM [facility] 06-05-2024 History of Present illness Narrative Exam chaperoned by Kyler Gray MA June 05, 2024 2:10 PM Associated Order(s): ENDO BIOPSY Post-Procedure Diagnose(s): PMB (postmenopausal bleeding) Images from the original note were not included. [facility] PATIENT NAME: Bryan Cruz PCP: Sandro Hinojosa [...] Fibroid Multiple sclerosis (HCC) Smoking Stroke (cerebrum) ([facility] 2016 had trouble walking Past Surgical History: [...] 1. PMB (postmenopausal bleeding) N95.0 [facility] US [facility] SURGICAL [facility]Y EMB completed today in office- VERY SCANT SPECIMEN Co-testing up to date CBC 05/08/2024 Hgb 10.3 TSH 08/30/2023 1.810 HA1C 08/30/2023 6.3 [facility] US ordered to assess size of uterus [...] (within years). Informed Consent Consent Obtained: Written [place] Protocol A moment to CARE was completed. [...] completed when applicable documented in this encounter [facility] 06-05-2024 Note HNO ID: [id number] Author: FREDA HERNANDEZ APRN.CNP Service: ? Author Type: Nurse Practitioner Type: Progress Notes Filed: 06/05/2024 14:30 Note Text: [facility] [place] Department of Benign Gynecology [facility] PATIENT NAME: Bryan Cruz PCP: Sandro Hinojosa [...] PMB (postmenopausal bleeding) (more content not included)... [facility] 06-04-2024 Note HNO ID: [id number] Author: MICHI GOMEZ RT(R) Service: ? Author [...] PATIENT PRESENTS WITH AN IMPLANTABLE OR ATTACHED GEOMETRICIAN: No ALLERGIES: Reviewed and unchanged CONTRAST ALLERGY: NO. EXAM: MRI - CONTRAST TYPE: GROUP II PERIPHERAL IV DATA: Ambulatory: A peripheral IV was started in the Right antecubital site with a Angio cath: 24 gauge. RADIOLOGY DEPARTMENT: MR; Exam(s) Completed: Spine: Cervical spine SIGNATURE: RT Krystal(R) PATIENT NAME: Bryan Cruz DATE: June 04, 2024 TIME: 9:20 AM [facility] 06-04-2024 History of Present illness Narrative Radiology [...] PATIENT PRESENTS WITH AN IMPLANTABLE OR ATTACHED GEOMETRICIAN: No ALLERGIES: Reviewed and unchanged CONTRAST ALLERGY: NO. EXAM: MRI - CONTRAST TYPE: GROUP II PERIPHERAL IV DATA: Ambulatory: A peripheral IV was started in the Right antecubital site with a Angio cath: 24 gauge. RADIOLOGY DEPARTMENT: MR; Exam(s) Completed: Spine: Cervical spine SIGNATURE: RT Krystal(R) PATIENT NAME: Bryan Cruz DATE: June 04, 2024 TIME: 9:20 AM documented in this encounter [facility] 06-03-2024 Telephone encounter Note [facility] and [facility]. All prescriptions have been APPROPRIATELY filled. No suspicious activity was identified. 06/03/2024 by Raymond Kemp APRN.CNP The following approved medication requests have been transmitted electronically. Requested Prescriptions Signed Prescriptions Disp Refills pregabalin (LYRICA) 300 mg capsule 60 capsule 0 Sig: Take 1 capsule by mouth two times a day for 30 days. Authorizing Provider: RAYMOND KEMP APRN.CNP [facility] 06-03-2024 Miscellaneous Notes [facility] checked and validated. All prescriptions have been APPROPRIATELY filled. No suspicious activity was identified. 06/03/2024 by Raymond Kemp APRN.CNP The following approved medication requests have been transmitted electronically. Requested Prescriptions Signed Prescriptions Disp Refills pregabalin (LYRICA) 300 mg capsule 60 capsule 0 Sig: Take 1 capsule by mouth two times a day for 30 days. Authorizing Provider: RAYMOND KEMP APRN.CNP She is here visiting and needs meds [...] Maria A Walsh documented in this encounter [facility] 06-02-2024 Telephone encounter Note She is here [...] Next Appointment : 08/14/2024 Maria A Walsh [facility] 05-26-2024 Note HNO ID: [id number] Author: MAGALI GREGORY [facility] Service: ? Author Type: ? Type: [...] been reviewed prior to dispensing the medication. Loom Mechanic Assessment Patient confirmed: Yes Med/dose confirmed: Yes Supplies needed: No supplies needed Missed doses: Yes Count of missed doses: 1 Reason for missed doses: by accident Estimated days supply on hand: 6 Next cycle/dose due: 06/11/24 Copay amount: 0 Payment confirmed: Yes Delivery method: FedEx Signature required: Waived on patient request Delivery address: [address] [place] [address] Delivery date: 06/12/24 Questions or concerns for [...] facility-administered medications on file prior to visit. [facility] SPECIALTY CLINICAL ASSESSMENT - NEUROLOGY V7: [...] Treatment Duration: No information available Judy Templeton (Hot Worker) Magali Gregory [facility] 05-26-2024 Note HNO ID: [id number] Author: ?, ?, ? Service: ? Author Type: ? Type: Progress Notes Filed: 06/05/2024 10:22 Note Text: Unable to reach patient for refill of Zeposia after 4 call attempts. Pt last refilled medication on 05/02/24. Will schedule future follow-up in 2 weeks from today's date. Office will be updated if future attempts are unsuccessful. Ermelinda Rothman CPhT (Dee) Lead [facility] Neurology/Cardiology/Infections Disease [facility] P: F: [facility] 05-08-2024 Instructions Raymond Kemp APRN.MAID HOUSEKEEPER - 05/08/2024 10:08 AM EDT PLAN: - Continue Zeposia - MRI brain (as previously ordered) - Labs today: CBC diff, CMP, vitamin D, vitamin B12 - Try compression stockings - Prescription for rollator prescribed - Re-Schedule: - PCP (Sabrina Henderson) - DIRECTOR OF STRATEGIC MARKETING - Ortho (new consult placed today) - MRI brain and cervical spine - Optometry (new consult placed today) - Follow up in 3 months - Dr Rothman is in [place] Sunday and the rest at [place] - I am at [place] every day except documented in this encounter [facility] 05-08-2024 History of Present illness Narrative Images from the original note were not included. [facility] FOLLOWUP/ESTABLISHED PATIENT VISIT PRINCIPAL NEUROLOGIC DIAGNOSIS: [...] or illness In a sober house in [place] Has been sober about 7 months Doctor [...] vision changes Neuro-QoL Functions (higher=better functioning) Flowsheet [facility] Office Visit from 07/19/2023 in [facility] Office Visit from 04/18/2023 in [facility] Office Visit from 10/27/2021 in [facility] Upper Extremity Domain T Score 44.53 42.12 42.58 Lower Extremity Domain T Score 40.35 34.04 36.94 Cognitive Function Domain T Score 48.64 46.37 52.55 Positive Affect Well Being T Score -- -- -- Ability To Participate In Social Roles T Score 44.12 33.38 37.21 Satisfaction With Social Roles T Score 41.34 36.98 40.61 Neuro-QoL Symptoms (higher=worse symptoms) Flowsheet [facility] Office Visit from 07/19/2023 in [facility] Office Visit from 04/18/2023 in [facility] Office Visit from 10/27/2021 in [facility] Sleep Domain T Score 57.7 61.86 67.68 Fatigue Domain T Score 56.21 58.38 50.45 Anxiety Domain T Score 48.72 48.87 56.09 Depression Domain T Score 46.25 47.97 55.43 Stigma Domain T Score 36.56 51.87 44.69 Emotional Behavior Dyscontrol T Score -- -- -- has a past medical history of Cocaine use, Depression, Fibroid, Multiple sclerosis ([facility]), Smoking, and Stroke (cerebrum) (FORMER[facility]). has a current medication list which includes [...] Years) BMI 41.33 kg/m MSPT Results Flowsheet [facility] Office Visit from 07/19/2023 in [facility] Office Visit from 04/18/2023 in [facility] Office Visit from 10/27/2021 in [facility] Processing Speed Total Number Correct 45 [...] 5 Biceps 5 5 Triceps 5 5 Runner Worker 5 5 Dorsal interossei 5 5 Lower [...] difficulty keeping appointments due to transportation and half-way house/restrictions. Will reschedule as below. She is [...] - Re-Schedule: - PCP (Sabrina Henderson) - DIRECTOR OF STRATEGIC MARKETING - Ortho (new consult placed today) - [...] D supplementation Follow-up: In 3 months at [place] or Virtual Visit with [facility] I spent a total of 54 minutes on the date of the service which included preparing to see the patient, [id number] patient care, completing clinical documentation, obtaining and/or reviewing separately obtained history, performing a medically appropriate examination, counseling and educating the patient/family/caregiver, and ordering medications, tests, or procedures. Raymond Kemp APRN.CNP [facility] Multiple Sclerosis documented in this encounter [facility] 05-08-2024 Note HNO ID: [id number] Author: RAYMOND KEMP APRN.CNP Service: ? Author Type: Nurse Practitioner Type: Progress Notes Filed: 05/08/2024 14:11 Note Text: [facility] FOLLOWUP/ESTABLISHED PATIENT VISIT PRINCIPAL NEUROLOGIC DIAGNOSIS: [...] MS disease modifying therapy Usual treating team: Bekah Kemp The patient is unaccompanied. The patient was last seen 01/31/24, currently taking Zeposia. Since the patient's last visit the patient reports overall feeling stable. Issues with current therapy: Tolerating medication without side effects. INTERVAL HISTORY: Reports only maybe 2 missed doses of Zeposia Denies new symptoms Denies infection or illness In a sober house in [place] Has been sober about 7 months Doctor [...] vision changes Neuro-QoL Functions (higher=better functioning) Flowsheet [facility] Office Visit from 07/19/2023 in [facility] Office Visit from 04/18/2023 in [facility] Office Visit from 10/27/2021 in [facility] Upper Extremity Domain T Score 44.53 42.12 42.58 Lower Extremity Domain T Score 40.35 34.04 36.94 Cognitive Function Domain T Score 48.64 46.37 52.55 Positive Affect Well Being T Score -- -- -- Ability To Participate In Social Roles T Score 44.12 33.38 37.21 Satisfaction With Social Roles T Score 41.34 36.98 40.61 Neuro-QoL Symptoms (higher=worse symptoms) Flowsheet [facility] Office Visit from 07/19/2023 in [facility] Office Visit from 04/18/2023 in [facility] Office Visit from 10/27/2021 in [facility] Sleep Domain T Score 57.7 61.86 67.68 Fatigue Domain T Score 56.21 58.38 50.45 Anxiety Domain T Score 48.72 48.87 56.09 Depression Domain T Score 46.25 47.97 55.43 Stigma Domain T Score 36.56 51.87 44.69 Emotional Behavior Dyscontrol T Score -- -- -- has a past medical history of Cocaine use, Depression, Fibroid, Multiple sclerosis (HCC), Smoking, and Stroke (cerebrum) [...] Years) BMI 41.33 kg/m? MSPT Results Flowsheet [facility] Office Visit from 07/19/2023 in [facility] Office Visit from 04/18/2023 in [facility] Office Visit from 10/27/2021 in [facility] Processing Speed Total Number Correct 45 [...] 5 Biceps 5 5 Triceps 5 5 Runner Worker 5 5 Dorsal interossei 5 5 Lower extremity: Iliopsoas 5 5- Quadriceps 5 5 Hamstrings 5 5 Tibialis anterior 5 5 Gastrocnemius 5 5 Coordination: Upper extremity dexterity and rapid movements: normal Finger-nose: very subtly impaired on left Heel-smith: no dysmetria; coordination intact Standing balance: mildly imp (more content not included)... [facility] 04-09-2024 Note HNO ID: [id number] Author: MAGALI GREGORY RPh Service: ? Author [...] been reviewed prior to dispensing the medication. Loom Mechanic Assessment Patient confirmed: Yes Med/dose confirmed: Yes Missed doses: No Estimated days supply on hand: 5 Next cycle/dose due: 05/02/24 Copay amount: 0 Delivery method: FedEx Signature required: Waived on patient request Delivery address: [id number] [place] [id number] Delivery date: 05/05/24 Questions or concerns for [...] facility-administered medications on file prior to visit. [facility] SPECIALTY CLINICAL ASSESSMENT - NEUROLOGY V7: [...] Barragan CPhT Neurology, Cardiology AND Infectious Disease [facility] Magali Gregory [facility] 04-09-2024 Note HNO ID: [id number] Author: ?, ?, ? Service: ? Author Type: ? Type: Progress Notes Filed: 05/01/2024 11:39 Note Text: Unable to reach patient for refill of Zeposia after 5 call attempts. Pt last refilled medication on 03/19/24. Will schedule future follow-up in 2 weeks from today's date. Office will be updated if future attempts are unsuccessful. Judy Templeton (Hot Worker) [facility] 03-13-2024 Note HNO ID: [id number] Author: PAULO COREY [facility] Service: ? Author Type: ? Type: [...] disease state markers and outcomes. Paulo Corey, PharmD Pharmacist, [facility] Guinea Pig Breeder Assessment Patient confirmed: Yes Med/dose confirmed: Yes Supplies needed: No supplies needed Missed doses: Yes Count of missed doses: 1 Reason for missed doses: by accident Estimated days supply on hand: 8 Next cycle/dose due: 03/18/24 Copay amount: 0 Payment confirmed: Yes Delivery method: FedEx Signature required: Waived on patient request Delivery address: [address] [facility] [address] Delivery date: 03/19/24 Questions or concerns for [...] facility-administered medications on file prior to visit. [facility] SPECIALTY CLINICAL ASSESSMENT - NEUROLOGY V7: [...] Treatment Duration: No information available Judy Templeton (Hot Worker) [facility] 02-14-2024 Note HNO ID: [id number] Author: SAL MALLOY MD Service: ? Author [...] L4 SAB0 IAB1 Ectopic0 Multiple0 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 NEURO: alert and oriented x3,exam grossly non-focal EXTREMITIES: normal ASSESSMENT/PLAN: 1) Health maintenance: Pap done with HPV. Mammogram up to date Referred to [facility] for hysterectomy consult Symptomatic Fibroids 2) Follow up one year or sooner as needed Adenike Cline MA was present as director gift for the entirety of the exam. Sal Malloy MD [facility] 02-14-2024 History of Present illness Narrative Bryan [...] L4 SAB0 IAB1 Ectopic0 Multiple0 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 NEURO: alert and oriented x3,exam grossly non-focal EXTREMITIES: normal ASSESSMENT/PLAN: 1) Health maintenance: Pap done with HPV. Mammogram up to date Referred to [facility] for hysterectomy consult Symptomatic Fibroids 2) Follow up one year or sooner as needed Adenike Cline MA was present as director gift for the entirety of the exam. Sal Malloy MD documented in this encounter [facility] 02-05-2024 Note HNO ID: [id number] Author: MAGALI GREGORY RPh Service: ? Author [...] laboratory parameters, disease state markers and outcomes. Loom Mechanic Assessment Patient confirmed: Yes Med/dose confirmed: Yes Supplies needed: No supplies needed Missed doses: Yes Count of missed doses: 1 Reason for missed doses: by accident Estimated days supply on hand: 12 Next cycle/dose due: 02/14/24 Copay amount: 0 Payment confirmed: Yes Delivery method: FedEx Signature required: Waived on patient request Delivery address: [address] [place] [id number] [facility]) Delivery date: 02/21/24 Questions [...] facility-administered medications on file prior to visit. [facility] Visit Assessment - Neurology: Assessment [...] to secondary progressive disease: No Judy Templeton (Hot Worker) [facility] 02-05-2024 Telephone encounter Note The following approved medication requests have been transmitted electronically. Requested Prescriptions Signed Prescriptions Disp Refills ozanimod (ZEPOSIA) 0.92 mg capsule 30 capsule 3 Sig: Take 1 capsule by mouth once daily. Obtain blood work for further refills. Authorizing Provider: RAYMOND KEMP APRN.CNP [facility] 02-05-2024 Miscellaneous Notes The following approved medication requests have been transmitted electronically. Requested Prescriptions Signed Prescriptions Disp Refills ozanimod (ZEPOSIA) 0.92 mg capsule 30 capsule 3 Sig: Take 1 capsule by mouth once daily. Obtain blood work for further refills. Authorizing Provider: RAYMOND KEMP APRN.CNP Provider is Leobardo Patient continues on Zeposia Date of patients last office visit 01/31/24 Last labs Next appointment date: 05/08/24 Requested Prescriptions Pending Prescriptions Disp Refills ozanimod (ZEPOSIA) 0.92 mg capsule 30 capsule 6 Sig: Take 1 capsule by mouth once daily Patient prefers: [facility] Thank you! Magali Gregory RPh documented in this encounter [facility] 02-04-2024 Telephone encounter Note Provider is Leobardo Patient continues on Zeposia Date of patients last office visit 01/31/24 Last labs Next appointment date: 05/08/24 Requested Prescriptions Pending Prescriptions Disp Refills ozanimod (ZEPOSIA) 0.92 mg capsule 30 capsule 6 Sig: Take 1 capsule by mouth once daily Patient prefers: [facility] Thank you! Magali Gregory RPh [facility] 01-31-2024 Instructions Raymond Kemp APRN.MAID HOUSEKEEPER - 01/31/2024 10:27 AM EDT The goal [...] fiber you need for the day. - [place] foods, spicy foods, or food intolerance's (lactose) [...] check out this web site for the Purple Harry http://www.[employer]/ Good sources of fiber include: - whole [...] in 3 months documented in this encounter [facility] 01-31-2024 History of Present illness Narrative Images from the original note were not included. [facility] FOLLOWUP/ESTABLISHED PATIENT VISIT PRINCIPAL NEUROLOGIC DIAGNOSIS: [...] therapy yet Neuro-QoL Functions (higher=better functioning) Flowsheet [facility] Office Visit from 07/19/2023 in [facility] Office Visit from 04/18/2023 in [facility] Office Visit from 10/27/2021 in [facility] Upper Extremity Domain T Score 44.53 42.12 42.58 Lower Extremity Domain T Score 40.35 34.04 36.94 Cognitive Function Domain T Score 48.64 46.37 52.55 Positive Affect Well Being T Score -- -- -- Ability To Participate In Social Roles T Score 44.12 33.38 37.21 Satisfaction With Social Roles T Score 41.34 36.98 40.61 Neuro-QoL Symptoms (higher=worse symptoms) Flowsheet [facility] Office Visit from 07/19/2023 in [facility] Office Visit from 04/18/2023 in [facility] Office Visit from 10/27/2021 in [facility] Sleep Domain T Score 57.7 61.86 67.68 Fatigue Domain T Score 56.21 58.38 50.45 Anxiety Domain T Score 48.72 48.87 56.09 Depression Domain T Score 46.25 47.97 55.43 Stigma Domain T Score 36.56 51.87 44.69 Emotional Behavior Dyscontrol T Score -- -- -- has a past medical history of Cocaine use, Depression, Multiple sclerosis ([facility]), Smoking, and Stroke (cerebrum) ([facility]). has a current medication list which includes [...] Years) BMI 40.20 kg/m MSPT Results Flowsheet Row Office Visit from 07/19/2023 in [facility] Office Visit from 04/18/2023 in [facility] Office Visit from 10/27/2021 in [facility] Processing Speed Total Number Correct 45 [...] 5 Biceps 5 5 Triceps 5 5 Runner Worker 5 5 Dorsal interossei 5 5 Lower [...] (H) 4.3 - 5.6 % Final Comment: [place] [employer] guidelines indicate that patients with [...] activity was identified. 01/31/2024 by Raymond Kemp APRN.MAID HOUSEKEEPER PLAN: - Continue Zeposia - Labs: CBC [...] D supplementation Follow-up: In 3 months at [place] or Virtual Visit with [facility] I spent a total of 40 minutes on the date of the service which included preparing to see the patient, [id number] patient care, completing clinical documentation, obtaining and/or reviewing separately obtained history, performing a medically appropriate examination, counseling and educating the patient/family/caregiver, and ordering medications, tests, or procedures. Raymond Kemp APRN.CNP [facility] documented in this encounter [facility] 01-31-2024 Note HNO ID: [id number] Author: RAYMOND KEMP APRN.CNP Service: ? Author Type: Nurse Practitioner Type: Progress Notes Filed: 01/31/2024 10:56 Note Text: [facility] FOLLOWUP/ESTABLISHED PATIENT VISIT PRINCIPAL NEUROLOGIC DIAGNOSIS: [...] therapy yet Neuro-QoL Functions (higher=better functioning) Flowsheet [facility] Office Visit from 07/19/2023 in [facility] Office Visit from 04/18/2023 in [facility] Office Visit from 10/27/2021 in [facility] Upper Extremity Domain T Score 44.53 42.12 42.58 Lower Extremity Domain T Score 40.35 34.04 36.94 Cognitive Function Domain T Score 48.64 46.37 52.55 Positive Affect Well Being T Score -- -- -- Ability To Participate In Social Roles T Score 44.12 33.38 37.21 Satisfaction With Social Roles T Score 41.34 36.98 40.61 Neuro-QoL Symptoms (higher=worse symptoms) Flowsheet [facility] Office Visit from 07/19/2023 in [facility] Office Visit from 04/18/2023 in [facility] Office Visit from 10/27/2021 in [facility] Sleep Domain T Score 57.7 61.86 67.68 Fatigue Domain T Score 56.21 58.38 50.45 Anxiety Domain T Score 48.72 48.87 56.09 Depression Domain T Score 46.25 47.97 55.43 Stigma Domain T Score 36.56 51.87 44.69 Emotional Behavior Dyscontrol T Score -- -- -- has a past medical history of Cocaine use, Depression, Multiple sclerosis ([facility]), Smoking, and Stroke (cerebrum) ([facility]). has a current medication list which includes [...] Years) BMI 40.20 kg/m? MSPT Results Flowsheet [facility] Office Visit from 07/19/2023 in [facility] Office Visit from 04/18/2023 in [facility] Office Visit from 10/27/2021 in [facility] Processing Speed Total Number Correct 45 [...] 5 Biceps 5 5 Triceps 5 5 Runner Worker 5 5 Dorsal interossei 5 5 Lower [...] walking: Impaired RES (more content not included)... [facility] 01-10-2024 Note HNO ID: [id number] Author: MAGALI GREGORY benny Service: ? Author [...] laboratory parameters, disease state markers and outcomes. Loom Mechanic Assessment Patient confirmed: Yes Med/dose confirmed: Yes Supplies needed: No supplies needed Missed doses: No Estimated days supply on hand: (4-5) Next cycle/dose due: 01/14/24 Copay amount: 0 Payment confirmed: Yes Delivery method: FedEx Signature required: Required (, Medicaid, patient preference) Delivery address: [address] [facility] [address] Delivery date: 01/16/24 Questions or concerns for [...] facility-administered medications on file prior to visit. [facility] Visit Assessment - Neurology: Assessment [...] to secondary progressive disease: No Judy Templeton (Hot Worker) Magali Gregory [facility] 12-17-2023 Note HNO ID: [id number] Author: NESS DOAN RPh Service: ? Author [...] disease state markers and outcomes. Ness Doan [facility] Loom Mechanic Assessment Patient confirmed: Yes Med/dose confirmed: Yes Missed doses: No Estimated days supply on hand: 2 Next cycle/dose due: 12/19/23 Copay amount: 0 Delivery method: FedEx Signature required: Required (, Medicaid, patient preference) Delivery address: [address] [place] [address] Delivery date: 12/20/23 Questions or concerns for [...] facility-administered medications on file prior to visit. [facility] Visit Assessment - Neurology: Assessment [...] Barragan CPhT Neurology, Cardiology AND Infectious Disease [facility] 11-30-2023 Telephone encounter Note Called patient, at home number/number listed in initial message, indicates it is no longer in service. Called mobile number listed in demographics, notified Pregabalin refilled as requested. She states both phone numbers are still valid in her chart, she just needs to add more minutes to the home number. Anita Perez RN [facility] 11-30-2023 Miscellaneous Notes Called patient, at home [...] to the pharmacy. Please call patient at: [phone] Nathan Cruz documented in this encounter [facility] 11-30-2023 Telephone encounter Note PDMP website checked [...] 120 days. Authorizing Provider: RAYMOND KEMP APRN.CNP [facility] 11-30-2023 Telephone encounter Note Patient has been identified by name and date of : Yes Requested Prescriptions Pending Prescriptions Disp Refills pregabalin (LYRICA) 300 mg capsule 60 capsule 3 Sig: Take 1 capsule by mouth two times a day for 120 days. RX INSTRUCTIONS: Patient requesting a call when RX is approved and sent to the pharmacy. Please call patient at: [phone] Nathan Cruz [facility] 11-08-2023 Note HNO ID: [id number] Author: NESS DOAN RPh Service: ? Author [...] disease state markers and outcomes. Ness Doan [facility] Loom Mechanic Assessment Patient confirmed: Yes Med/dose confirmed: Yes Supplies needed: No supplies needed Missed doses: Yes Count of missed doses: 2 Reason for missed doses: by accident Estimated days supply on hand: 7 Next cycle/dose due: 11/22/23 Copay amount: 0 Payment confirmed: Yes Delivery method: FedEx Signature required: Required (, Medicaid, patient preference) Delivery address: [address] [facility] [address] Delivery date: 11/26/23 Questions or concerns for [...] facility-administered medications on file prior to visit. [facility] Visit Assessment - Neurology: Assessment [...] to secondary progressive disease: No Judy Templeton (Hot Worker) [facility] 10-17-2023 Miscellaneous Notes The following approved medication [...] 11-29-2023 Anusha Lovett documented in this encounter [facility] 10-02-2023 Miscellaneous Notes Patient last office visit 09/20/2023. Requested Prescriptions Pending Prescriptions Disp Refills ozanimod (ZEPOSIA) 0.92 mg capsule 30 capsule 4 Sig: Take 1 capsule by mouth once daily Please review and advise. Ness Doan RP documented in this encounter [facility] 09-21-2023 Miscellaneous Notes Called patient, verified name and , message below given. Patient verbalizes understanding, denies further questions/concerns. Patient will call back regarding US order, may want faxed to [facility]. Doreen Jiménez RN Call placed to patient. LVM for patient to call [phone], push option 3 to speak to a [...] with fibroids please documented in this encounter [facility] 09-21-2023 Miscellaneous Notes Diagnosis codes were linked [...] 11-29-2023 Anusha Lovett documented in this encounter [facility] 09-20-2023 Miscellaneous Notes The following approved medication [...] 11-29-2023 Anusha Lovett documented in this encounter [facility] 09-20-2023 Instructions Raymond Kemp APRN.CNP - 09/20/2023 2:39 PM EST PLAN: - Continue Zeposia - Keep appointments as scheduled with PT and [facility] (cognitive therapy), PCP - Schedule: - pelvic floor therapy - OCT and ophthalmology - reschedule with [facility] - Continue Cymbalta 60 mg QHS - [...] sugar more stable documented in this encounter [facility] 09-20-2023 History of Present illness Narrative Images from the original note were not included. [facility] FOLLOWUP/ESTABLISHED PATIENT VISIT PRINCIPAL NEUROLOGIC DIAGNOSIS: [...] in aide Neuro-QoL Functions (higher=better functioning) Flowsheet [facility] Office Visit from 07/19/2023 in [facility] Office Visit from 04/18/2023 in [facility] Office Visit from 10/27/2021 in [facility] Upper Extremity Domain T Score 44.53 42.12 42.58 Lower Extremity Domain T Score 40.35 34.04 36.94 Cognitive Function Domain T Score 48.64 46.37 52.55 Positive Affect Well Being T Score -- -- -- Ability To Participate In Social Roles T Score 44.12 33.38 37.21 Satisfaction With Social Roles T Score 41.34 36.98 40.61 Neuro-QoL Symptoms (higher=worse symptoms) Flowsheet [facility] Office Visit from 07/19/2023 in [facility] Office Visit from 04/18/2023 in [facility] Office Visit from 10/27/2021 in [facility] Sleep Domain T Score 57.7 61.86 67.68 Fatigue Domain T Score 56.21 58.38 50.45 Anxiety Domain T Score 48.72 48.87 56.09 Depression Domain T Score 46.25 47.97 55.43 Stigma Domain T Score 36.56 51.87 44.69 Emotional Behavior Dyscontrol T Score -- -- -- has a past medical history of Cocaine use, Depression, Multiple sclerosis (HCC), Smoking, and Stroke (cerebrum) ([facility]ERLY [facility]). has a current medication list which includes [...] 41.99 kg/m Multiple Sclerosis Performance Test Flowsheet [facility] Office Visit from 07/19/2023 in [facility] Office Visit from 04/18/2023 in [facility] Processing Speed Total Number Correct 45 [...] (H) 4.3 - 5.6 % Final Comment: [place] [employer] guidelines indicate that patients with [...] Keep appointments as scheduled with PT and [facility] (cognitive therapy), PCP - Schedule: - pelvic floor therapy - OCT and ophthalmology - [place]chedule with [place] [place] - Continue Cymbalta 60 mg QHS - Paperwork signed in office and returned to patient - Follow up in 3 months as scheduled No orders found for this visit on 09/20/23. Follow-up: In 3 months at [place] or Virtual Visit with [facility] APC I spent a total of 29 minutes on the date of the service which included preparing to see the patient, ixps-ak-vfhs patient care, completing clinical documentation, obtaining and/or reviewing separately obtained history, performing a medically appropriate examination, and counseling and educating the patient/family/caregiver. Raymond Kemp APRN.CNP [facility] for Multiple Sclerosis documented in this encounter [facility] 08-13-2023 Hospital Discharge instructions Jeffery Cantu DO [...] cannot be sent through Care Everywhere.Multiple Sclerosis ([place] Islander)documented in this encounter [facility] 07-19-2023 History of Present illness Narrative [...] 300 Mg Capsule 60.00 30 Ra But [id number] Ohi (1492) 0 PMDP on lyrica per [...] 128/76 Physical Exam Exam conducted with a director gift present (Danyell Wong). Constitutional: Appearance: Normal appearance. [...] 4.00 k/uL Monocytes % 9.6 % Abs Jennings 1.01 (H) <0.87 k/uL Eosinophils % 4.1 [...] , AHBSQ , HEPBCOTOL , HEPCABEIA , [id number] , SYPHT Impression/Recommendations Social History Social History [...] per record. - Multiple no shows to [email or web address] appts. - Bilateral breast pain lower quadrants [...] obesity with BMI of 40.0-44.9, adult (HCC) Return in about 3 months (around 10/18/2023) for PHYSICAL. I spent a total of 24 minutes on the date of the service which included preparing to see the patient, leih-xg-btgh patient care, completing clinical documentation, obtaining and/or reviewing separately obtained history, performing a medically appropriate examination, counseling and educating the patient/family/caregiver, and ordering medications, tests, or procedures. Sandro Hinojosa MD documented in this encounter [facility] 07-19-2023 Instructions Raymond Kemp APRN.CNP - 07/19/2023 3:07 PM EST GET MRIS GET OCT EYE TEST GET LABS Refills sent Follow up in 3 months Increase baclofen dosing Schedule with health psychology Schedule with ophthalmology documented in this encounter [facility] 07-19-2023 History of Present illness Narrative Images from the original note were not included. [facility] FOLLOWUP/ESTABLISHED PATIENT VISIT PRINCIPAL NEUROLOGIC DIAGNOSIS: [...] Denies double vision, pain, color desaturation MS aayushg sensation Is in sober living right now due to relapse 06/06/23 No longer is with previous partner which she is happy about, I feel assembler chassis Had an episode where she could not urinate for about 2 days a couple weeks ago Started coughing and urine eventually came out Neuro-QoL Functions (higher=better functioning) Flowsheet [facility] Office Visit from 04/18/2023 in [facility] Office Visit from 10/27/2021 in [facility] Office Visit from 07/13/2021 in [facility] Upper Extremity Domain T Score 42.12 42.58 47.21 Lower Extremity Domain T Score 34.04 36.94 37.53 Cognitive Function Domain T Score 46.37 52.55 45.93 Positive Affect Well Being T Score -- -- -- Ability To Participate In Social Roles T Score 33.38 37.21 44.12 Satisfaction With Social Roles T Score 36.98 40.61 50.16 Neuro-QoL Symptoms (higher=worse symptoms) Flowsheet [facility] Office Visit from 04/18/2023 in [facility] Office Visit from 10/27/2021 in [facility] Office Visit from 07/13/2021 in [facility] Sleep Domain T Score 61.86 67.68 68.05 Fatigue Domain T Score 58.38 50.45 50.45 Anxiety Domain T Score 48.87 56.09 61.92 Depression Domain T Score 47.97 55.43 56.92 Stigma Domain T Score 51.87 44.69 52.21 Emotional Behavior Dyscontrol T Score -- -- -- has a past medical history of Cocaine use, Depression, Multiple sclerosis ([facility]), Smoking, and Stroke (cerebrum) (FORMERLY [facility]). has a current medication list which includes the following prescription(s): zeposia, lidocaine hcl, atorvastatin, iv contrast, sertraline, pregabalin, ergocalciferol (vitamin d2), baclofen, biotene dry mouth oral rinse, polyethylene glycol 3350, lidocaine, and acetaminophen. EXAM: BP 112/56 Pulse 71 Wt 97.5 kg (215 lb) LMP 04/28/2020 (Within Years) BMI 42.34 kg/m Multiple Sclerosis Performance Test Flowsheet [facility] Office Visit from 04/18/2023 in [facility] Office Visit from 10/27/2021 in [facility] Processing Speed Total Number Correct 46 [...] 5- Biceps 5 5- Triceps 4 4 Runner Worker 4 4 Dorsal interossei 4 4 Lower [...] activity was identified. 07/19/2023 by Raymond Kemp APRN.MAID HOUSEKEEPER MRI of the brain and/or spinal cord [...] - Labs today, urinalysis/culture today - Baclofen 20-20-40 - Consult ophthalmology - Schedule with health psychology - Follow up in 3 months Office Visit on 07/19/23 MRI THORACIC SPINE WO/W IVCON URINALYSIS, WITH MICROSCOPIC CONSULT TO OPHTHALMOLOGY URINE CULTURE Patient Health Education Discussed at Visit: Emotional Health/Wellness, Risks and Common side effects of MS medications, Stress management, Stretching, and Vitamin D supplementation Follow-up: In 3 months at [place] or Virtual Visit with [facility] I spent a total of 54 minutes on the date of the service which included preparing to see the patient, oaft-qr-smhv patient care, completing clinical documentation, obtaining and/or reviewing separately obtained history, performing a medically appropriate examination, counseling and educating the patient/family/caregiver, and ordering medications, tests, or procedures. Raymond Kmep APRN.CNP [facility] documented in this encounter [facility] 06-27-2023 Miscellaneous Notes Lab orders replaced Raymond Kemp APRN.CNP June 27, 2023 9:01 AM Jeromy called back regarding patient lab orders No active orders in the system Will route to provider to see what labs are needed and will then fax the orders once orders have been placed [place] Call Name of caller : JEROMY Relationship to patient: [facility] Return call phone number : [phone] hit option 3 two times Reason for call : Other : Labs Brief description of concern : Patient is requesting labs that are needed to be faxed to: [phone] documented in this encounter [facility] 06-12-2023 History of Present illness Narrative [facility] [...] disease state markers and outcomes. Paulo Corey, PharmD Pharmacist, [facility] Guinea Pig Breeder Assessment Patient confirmed: Yes Med/dose confirmed: Yes Supplies needed: No supplies needed Missed doses: No Estimated days supply on hand: 0 Copay amount: 0 Payment confirmed: Yes Delivery method: FedEx Signature required: Waived on patient request Delivery address: [address] [place] [address], [address] Delivery date: 06/14/23 Questions or concerns for the pharmacist?: No [facility] Visit Assessment - Neurology: Assessment [...] No Nidhi Katz documented in this encounter [facility] 05-24-2023 Miscellaneous Notes Called and spoke with [...] homeless and is waiting for housing through [facility]. Patient is currently staying with a friend (?) and has asked for her address to be updated to this friends (?) address in c/o [place], address updated. -Patient states she has left behind her orders for labs and MRI's at previous address and is need of new orders. MRI orders faxed to [facility] in [place], lab orders faxed to [facility] at patients request. -Patient is inquiring if Dr. Rothman would draft a Emotional Support Animal Letter, states she has a dog and is need of letter to give to [facility]. In addition to GISELLE letter, patient is requesting a letter stating that she is in need of a rim buster as she frequently falls due to MS diagnosis. Left voice message for patient to contact office, if/when patient returns call, please inquire if she had MRI of Brain & C-Spine, that was ordered on 04/18/23, completed at a non [facility] imaging center so that Images and reports can be requested for OV with Dr. Rothman on 05/24/23. documented in this encounter [facility] 04-18-2023 Instructions Ellen Rothman MD - 04/18/2023 [...] the fiber you need for the day. [place] foods, spicy foods, or food intolerance's (lactose) [...] vest to help with sweating and heat. [facility] gives these out for free. Go online and apply at: [email or web address] coordinator [email or web address]/ I also want to get you back on Zoloft for mood and get you hooked up with our [facility] pyschology team to help with mood. documented in this encounter [facility] 04-18-2023 History of Present illness Narrative Images from the original note were not included. [facility] FOLLOWUP/ESTABLISHED PATIENT VISIT PRINCIPAL NEUROLOGIC DIAGNOSIS: [...] in the last month. Presently she attending [employer] often and is getting baptized on Apr [...] side effects. Neuro-QoL Functions (higher=better functioning) Flowsheet [facility] Office Visit from 04/18/2023 in [facility] Office Visit from 10/27/2021 in [facility] Office Visit from 07/13/2021 in [facility] Upper Extremity Domain T Score 42.12 42.58 47.21 Lower Extremity Domain T Score 34.04 36.94 37.53 Cognitive Function Domain T Score 46.37 52.55 45.93 Positive Affect Well Being T Score -- -- -- Ability To Participate In Social Roles T Score 33.38 37.21 44.12 Satisfaction With Social Roles T Score 36.98 40.61 50.16 Neuro-QoL Symptoms (higher=worse symptoms) Flowsheet [facility] Office Visit from 04/18/2023 in [facility] Office Visit from 10/27/2021 in [facility] Office Visit from 07/13/2021 in [facility] Sleep Domain T Score 61.86 67.68 68.05 Fatigue Domain T Score 58.38 50.45 50.45 Anxiety Domain T Score 48.87 56.09 61.92 Depression Domain T Score 47.97 55.43 56.92 Stigma Domain T Score 51.87 44.69 52.21 Emotional Behavior Dyscontrol T Score -- -- -- has a past medical history of Cocaine use, Depression, Multiple sclerosis (HCC), Smoking, and Stroke (cerebrum) ([facility]ERLY [facility]). has a current medication list which includes the following prescription(s): zeposia, hydroxyzine pamoate, lidocaine hcl, atorvastatin, baclofen, pregabalin, sertraline, iv contrast, iv contrast, biotene dry mouth oral rinse, and polyethylene glycol 3350. EXAM: BP 146/76 Pulse 74 Wt 91.2 kg (201 lb) LMP 04/28/2020 (Within Years) BMI 39.58 kg/m Multiple Sclerosis Performance Test Flowsheet Row Office Visit from 04/18/2023 in [facility] Office Visit from 10/27/2021 in [facility] Processing Speed Total Number Correct 46 [...] 08/17/2022 MRI Results: No results found for: [id number] , ENHANCINGLES , CERVICALNEW , SPINEENHACIN ASSESSMENT/PLAN: [...] Brain and Cervical Spine W/WO -Consult to [facility] Pyschology- virtual please -Resume Zoloft 50mg daily x1 week then increase to 100mg daily -Continue baclofen 20mg TID, discussed option to consider botox evaluation given side effects of constipation, dry mouth and fatigue- patient elected to continue baclofen at this time but will [place]utluak back to his at next visit -Constipation [...] for Lyrica and Zoloft sent for now. PIA calling patient to explain needs labs prior to refills. Office Visit on 04/18/23 MRI BRAIN WO/W IVCON MRI CERVICAL SPINE WO/W IVCON COMP METABOLIC PANEL CBC + DIFF VITAMIN D 25 HYDROXY ESTABLISH WITH PRIMARY CARE - NEW PATIENT CONSULT TO PSYCHOLOGY Patient Health Education Discussed at Visit: Emotional Health/Wellness and Need for PCP Follow-up: In 3 months at [place], Virtual Visit, or [place] with [facility] APC I spent a total of 60 minutes on the date of the service which included preparing to see the patient, pfgq-eb-poqz patient care, completing clinical documentation, obtaining and/or reviewing separately obtained history, performing a medically appropriate examination, counseling and educating the patient/family/caregiver, ordering medications, tests, or procedures, and care coordination (not separately reported). Ellen Rothman MD [facility] Multiple Sclerosis documented in this encounter [facility] 04-03-2023 Miscellaneous Notes Lab orders placed Raymond Kemp APRN.CNP April 03, 2023 10:11 AM Bryan Cruz is calling Ellen Rothman MD today to request lab orders for upcoming office visit. Call when placed, her MYChart is not working. Please SEND THE ORDERS TO [facility]. She did not have the fax number. No chief complaint on file. Patient has been identified by name and birthdate. Duration of symptoms: Person calling: self Call patient at: [phone] (home) [phone] (cell) Was an appointment scheduled: Closing statement: Aleida De Leon documented in this encounter [facility] 03-12-2023 History of Present illness Narrative [facility] [...] laboratory parameters, disease state markers and outcomes. Loom Mechanic Assessment Patient confirmed: Yes Med/dose confirmed: Yes Supplies needed: No supplies needed Missed doses: No Estimated days supply on hand: (unable to check qty on hand not at home at this time) Copay amount: 0 Payment confirmed: Yes Delivery method: FedEx Signature required: Waived on patient request Delivery address: [address] [place] [address] [place] [address] Delivery date: 03/14/23 Questions or concerns for the pharmacist?: No [facility] Visit Assessment - Neurology: Assessment to use: Refill Vaccination Assessment: Date of influenza vaccination reminder: 05/03/2022 Date of most recent vaccination assessment: 05/03/2022 Ermelinda Rothman ([place]) documented in this encounter [facility] 01-09-2023 Miscellaneous Notes Lab orders entered. Ness Farrell APRN.CNP Called patient Identified by name and date of Reviewed recommendations Patient verbalized understanding and agrees with plan No further concerns Agreed on 01/18/2023 [place] office appointment at 1 pm with Raymond [...] with [place] or [place] (to establish at [place]) since then. We need to see her and repeat bloodwork to make sure it's safe to continue this medication. If she has transportation difficulties, social work may be able to help. Short-term refill sent. Ness Farrell APRN.SHAYLA Patient phones requesting refills as follows: Requested Prescriptions Pending Prescriptions Disp Refills ozanimod (ZEPOSIA) 0.92 mg capsule 30 capsule 0 Sig: Take 1 capsule by mouth once daily Next office visit scheduled this Sunday, 12-27. Last office visit > 1 year ago. Please review and advise. Paulo Corey RPh documented in this encounter [facility] 11-21-2022 History of Present illness Narrative Appointment rescheduled. Nadia Santiago LPN November 21, 2022 12:38 PM documented in this encounter [facility] 11-20-2022 Instructions Nadia Santiago LPN - 11/20/2022 3:35 PM EDT Images from the original note were not included. MINIMALLY INVASIVE GYNECOLOGIC SURGERY (MIGS)/BENIGN GYNECOLOGY CONTACTS: Dr. Corbin Wilson Surgery Scheduling Office: Call the day before surgery after 2pm for your surgery arrival time After hours phone number: or toll free Ask the sweatband cutting machine operator to page the monitoring tech change control coordinator.' Business hours are Sunday - Sunday from [...] vitamin E, herbal medications, diet pills, and joqx-jps-ngnblhx medications. Tylenol (acetaminophen) is okay. I will not wear jewelry, body piercing(s), makeup, nail canadian, hairpins, or contacts on the day of [...] my surgeon. Discuss medication changes with your program developer or primary care physician as well. If I stopped taking my blood-thinning medication, I will ask the surgeon when to resume taking it. If I am an outpatient, a responsible person will drive me home and it was suggested that someone stay with me for 24 hours. I understand that a compensation business partner or cabdriver is NOT a responsible caregiver. [...] for surgery, I must call my surgical aides teacher after 2pm the day before surgery. PREOP INSTRUCTIONS THE DAY OF SURGERY/CHECK IN Report to DESK - for surgery. A map is located in Your Surgical Guide Book. The online version of the surgical guide book can be found at: [email or web address] The address is [address] [place] [address]/[place] [address] INFECTION PREVENTION Please notify your doctor if [...] Your Surgical Guide Book for more information. [facility] TEAM At the [facility], we have a multidisciplinary team of caregivers that includes fellows, residents, nurse practitioners, physician assistants, clinical nurse specialists, nurses, medical assistants, patient care nursing assistants, social workers, embedded case manager and many others. We all have different [...] If you have a sedentary job or cinder worker 1-2 weeks before returning to work is [...] to dispose of unused medications at three [facility] locations: [facility] pharmacy, [facility] pharmacy, and the Pharmacy at the [facility] for [facility] (inside the parking garage on the first [...] EMERGENCY DEPARTMENT POST OPERATIVELY, WE RECOMMEND THE [facility] EMERGENCY DEPARTMENT FOR CONTINUITY OF CARE AND THE BEST ACCESS TO ONE OF THE SURGEONS ON OUR TEAM. Address: [address] [place] [address] documented in this encounter [facility] 11-20-2022 Miscellaneous Notes [facility] schedulers, Patient was scheduled in [facility] today at 10:20 AM and did not show for the appointment. She is scheduled for hysterectomy 12/05/2022 at [facility]. I called the patient at 10:50 and left the number for her to reschedule on her voicemail. Thank you, Mindi Henry APRN.[facility] documented in this encounter [facility] 11-17-2022 Miscellaneous Notes Called patient Identified by [...] PA-C, who is no longer working at [place], and before that was seen by Dr [...] none Joanne Dillard documented in this encounter [facility] 10-27-2022 Miscellaneous Notes Spoke with patient and went over the dates and times for pre & post op appts, pt stated she doesn't use MyChart, she wrote all the appts down documented in this encounter [facility] 10-27-2022 Miscellaneous Notes P2P scheduled for 11/01 @10am. Dr. Reid will call Ellen Church CNP work cell. Peer to Peer Information Is a Peer to Peer available? Yes Does Peer to Peer need to be scheduled? Yes, by leaving a voice mail requesting a call back. Who can schedule? N/A Who can complete the Peer to Peer? , MELISSA, ACTIVITIES MANAGER, LN Allowable Peer to Peer timeframe? Must be completed by 10/31/2022 Payer Information Insurance Name [employer] P2P opt 1 Case # [id number] Appeal Information Appeal Address N/A Appeal Special Appeal Instructions Provider and member's consent form are required for appeal submission. Please see attached. Allowable Timeframe for Appeal 180 calendars days Facility Information Location [facility] [id number] Tax ID# [id number] Patient Demographics Patient Last Name Nancy Patient First Name Bryan Date of 1970 Clinical/Denial Information Ordering Provider Corbin Wilson Approved Services N/A Denied Services [id number] - ROBOTIC LAPAROSCOPIC TOTAL HYSTERECTOMY W/ BSO [...] The request does not meet guidelines. Guideline: [place] Administrative Code 5160-1-[address] [facility] Hysterectomy, Laparoscopic ( S-665 ). Clinical Documentation Provided Office notes: Bony 08/17/22; Katia Wilson 08/25/21, 07/19/21 - Telephone encounter: Katia Wilson 08/25/22 Imaging: PELVIC US 08/02/21 Labs/Cultures: PATH 08/25/21 documented in this encounter [facility] 10-25-2022 Miscellaneous Notes Pre op lab orders placed. Katya Mendoza APRN.MAID HOUSEKEEPER documented in this encounter [facility] 08-24-2022 Miscellaneous Notes Patient called regarding pre op appointments Patient can be reached at [phone] Kimberly Lynch Called patient to schedule pre op with Dr. Montalvo. Patient has not kept her past 2. Advised if this is not kept then we are going to have to cancel case. .me documented in this encounter [facility] 08-17-2022 History and physical note HISTORY AND [...] Cocaine Abuse (Hcc) Current Smoker Stroke (Cerebrum) (Hcc) Subjective CHIEF COMPLAINT: AUB HPI: 51 year old year old presents to [facility] for evaluation. Patient has been experiencing pelvic pain and spotting > 2 months. Has elected for surgical intervention. PAST MEDICAL HISTORY Diagnosis Date Cocaine use reports relapsed in 2019 but now sober again Depression Multiple sclerosis (HCC) Smoking Stroke (cerebrum) (HCC) [...] requiring medication, no history of angina, CHF, [place], cardiac surgery or stents. Denies rest pain, gangrene or revascularization/amputation for PVD. No history of cardiovascular symptoms or problems. +HLD GI: No history of GI symptoms or problems. No history of esophageal varices, recent ascites, or ETOH greater than 2 drinks per day. 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 Please check in on the 1st floor [...] Procedures: - YOU MUST HAVE A RESPONSIBLE EXPERT MEDICAL WRITER TAKE YOU HOME. A TELETYPE TELEGRAPHER OR SPA CONCIERGE CANNOT BE MADE A RESPONSIBLE EXPERT MEDICAL WRITER. - We recommend that a responsible person [...] Advance Directive, please fax a copy to [phone] or email to for it to be [...] Rina Lovett APRN.CNP documented in this encounter [facility] 08-14-2022 History of Present illness Narrative DATE OF SERVICE: 08/14/2022 PROBLEM: Bryan Cruz presents for pre-op teaching. PRE-OP DIAGNOSIS: AUB and fibroids SCHEDULED SURGERY AND DATE: 09-01-22 [place] ROBOTIC LAPAROSCOPIC TOTAL HYSTERECTOMY W/ BSO UTERUS=<250G [...] patient have an advanced directive: No Does [facility] have a copy of the patient's advanced [...] prescribed by anesthesia, internal medicine, surgeon, or ACTIVITIES MANAGER Stop NSAIDs, Aspirin (ASA), vitamins, herbal supplements, [...] jewelry, body piercing, makeup, contacts, lotions, nail canadian on fingers, or anything in hair on arrival to surgery Wear low healed shoes and loose fitting clothing Leave all valuables at home or with a family member Directions to [facility] Parking/parking validation on the day prior to [...] if after hours patient instructed to call sweatband cutting machine operator and ask for change control coordinator monitoring tech onc resident. ANTONINA program offered to patient: [...] None Educator: Nadia Santiago LPN [facility] [place] documented in this encounter [facility] 08-14-2022 Instructions Nadia Santiago LPN - 08/14/2022 9:35 AM EST Images from the original note were not included. MINIMALLY INVASIVE GYNECOLOGIC SURGERY (MIGS)/BENIGN GYNECOLOGY CONTACTS: Surgeons: Dr. Anita Urena Dr. Brittaney Morrison Dr. Naheed Gomez Dr. Corbin Wilson Dr. Dejon Del Toro Dr. April Moore Dr. Pooja Weinstein Dr. Eboni Alejandre Dr. Stacy Lynn Nurse Practitioners: Ellen Nobles, SCABBLER.MAID HOUSEKEEPER Vale Alas SCABBLER.MAID HOUSEKEEPER Sherita Bruce, SCABBLER.MAID HOUSEKEEPER Alesha Mascorro, SCABBLER.MAID HOUSEKEEPER Surgery Scheduling Office: Call the day before surgery after 2pm for your surgery arrival time After hours phone number: or toll free Ask the sweatband cutting machine operator to page the monitoring tech change control coordinator.' Business hours are Sunday - Sunday from [...] vitamin E, herbal medications, diet pills, and jmnf-sqq-scynnxq medications. Tylenol (acetaminophen) is okay. I will not wear jewelry, body piercing(s), makeup, nail canadian, hairpins, or contacts on the day of [...] my surgeon. Discuss medication changes with your program developer or primary care physician as well. If I stopped taking my blood-thinning medication, I will ask the surgeon when to resume taking it. If I am an outpatient, a responsible person will drive me home and it was suggested that someone stay with me for 24 hours. I understand that a compensation business partner or cabdriver is NOT a responsible caregiver. [...] for surgery, I must call my surgical aides teacher after 2pm the day before surgery. Pre-operative instructions given by: PREOP INSTRUCTIONS THE DAY OF SURGERY/CHECK IN Surgery Location Parking Check-in Location [facility] [address] [place], [place] Parking garage connected to hospital or [facility] Registration desk, first floor, main [...] Your Surgical Guide Book for more information. [facility] TEAM At the [facility], we have a multidisciplinary team of caregivers that includes fellows, residents, nurse practitioners, physician assistants, clinical nurse specialists, nurses, medical assistants, patient care nursing assistants, social workers, embedded case manager and many others. We all have different [...] If you have a sedentary job or cinder worker 1-2 weeks before returning to work is [...] to dispose of unused medications at three [facility] locations: [facility] pharmacy, [facility] pharmacy, and the Pharmacy at the [facility] for [facility] (inside the parking garage on the first [...] EMERGENCY DEPARTMENT POST OPERATIVELY, WE RECOMMEND THE [facility] EMERGENCY DEPARTMENT FOR CONTINUITY OF CARE AND THE BEST ACCESS TO ONE OF THE SURGEONS ON OUR TEAM. Address: [address] [place] [address] documented in this encounter [facility] 08-04-2022 History of Present illness Narrative The patient did not show up for this appointment. Kyler Gray Ma August 04, 2022 3:44 PM documented in this encounter [facility] 05-31-2022 History of Present illness Narrative [facility] [...] laboratory parameters, disease state markers and outcomes. Loom Mechanic Assessment Patient confirmed: Yes Med/dose confirmed: Yes Supplies needed: No supplies needed Missed doses: Yes Count of missed doses: 3 Reason for missed doses: forgot Estimated days supply on hand: 7 Next cycle/dose due: 06/01/22 Copay amount: 0 Payment confirmed: Yes Delivery method: FedEx Signature required: No (Patient request SIG removal) Delivery address: [address] [facility] [place] [address] Delivery date: 06/06/22 Questions or concerns for the pharmacist?: No [facility] Visit Assessment - Neurology: Assessment to use: Refill Vaccination Assessment: Date of influenza vaccination reminder: 05/03/2022 Date of most recent vaccination assessment: 05/03/2022 Freda Curtis CPhT [facility] [phone] documented in this encounter [facility] 05-15-2022 Miscellaneous Notes Source : call from patient requesting refill. Delivery : e-script Requested Prescriptions Pending Prescriptions Disp Refills pregabalin (LYRICA) 300 mg capsule 60 capsule 5 Sig: Take 1 capsule by mouth twice daily for 180 days. DX : Patient last seen : 12/02/2021 Next Appointment : none Amandeep Cook documented in this encounter [facility] 05-08-2022 History of Past i llness Narrative Problem Noted Date Diagnosed Date Resolved Date Suicidal ideation 05/08/2022 07/19/2023 Last Assessment & Plan: Assessment: Stable Denies any SI Has not had any >2 years Leukocytosis 05/08/2022 07/19/2023 documented as of this encounter (statuses as of 07/20/2023) [facility] History of Past illness Narrative* Problem Noted Date Diagnosed Date Resolved Date Suicidal ideation 05/08/2022 07/19/2023 Last Assessment & Plan: Assessment: Stable Denies any SI Has not had any >2 years Leukocytosis 05/08/2022 07/19/2023 documented as of this encounter (statuses as of 07/20/2023) [facility] History of Past illness Narrative* Problem Noted Date Diagnosed Date Resolved Date Suicidal ideation 05/08/2022 07/19/2023 Last Assessment & Plan: Assessment: Stable Denies any SI Has not had any >2 years Leukocytosis 05/08/2022 07/19/2023 documented as of this encounter (statuses as of 09/07/2023) [address]03-2022 History of Past illness Narrative* Problem Noted Date Diagnosed Date Resolved Date Suicidal ideation 05/08/2022 07/19/2023 Last Assessment & Plan: Assessment: Stable Denies any SI Has not had any >2 years Leukocytosis 05/08/2022 07/19/2023 documented as of this encounter (statuses as of 09/07/2023) [address]-2022 History of Past illness Narrative* Problem Noted Date Diagnosed Date Resolved Date Suicidal ideation 05/08/2022 07/19/2023 Last Assessment & Plan: Assessment: Stable Denies any SI Has not had any >2 years Leukocytosis 05/08/2022 07/19/2023 documented as of this encounter (statuses as of 09/20/2023) [address]03-2022 History of Past illness Narrative* Problem Noted Date Diagnosed Date Resolved Date Suicidal ideation 05/08/2022 07/19/2023 Last Assessment & Plan: Assessment: Stable Denies any SI Has not had any >2 years Leukocytosis 05/08/2022 07/19/2023 documented as of this encounter (statuses as of 09/20/2023) [address]03-2022 History of Past illness Narrative* Problem Noted Date Diagnosed Date Resolved Date Suicidal ideation 05/08/2022 07/19/2023 Last Assessment & Plan: Assessment: Stable Denies any SI Has not had any >2 years Leukocytosis 05/08/2022 07/19/2023 documented as of this encounter (statuses as of 09/21/2023) [address]03-2022 History of Past illness Narrative* Problem Noted Date Diagnosed Date Resolved Date Suicidal ideation 05/08/2022 07/19/2023 Last Assessment & Plan: Assessment: Stable Denies any SI Has not had any >2 years Leukocytosis 05/08/2022 07/19/2023 documented as of this encounter (statuses as of 09/21/2023) [address]-2022 History of Past illness Narrative* Problem Noted Date Diagnosed Date Resolved Date Suicidal ideation 05/08/2022 07/19/2023 Last Assessment & Plan: Assessment: Stable Denies any SI Has not had any >2 years Leukocytosis 05/08/2022 07/19/2023 documented as of this encounter (statuses as of 09/28/2023) [address]-2022 History of Past illness Narrative* Problem Noted Date Diagnosed Date Resolved Date Suicidal ideation 05/08/2022 07/19/2023 Last Assessment & Plan: Assessment: Stable Denies any SI Has not had any >2 years Leukocytosis 05/08/2022 07/19/2023 documented as of this encounter (statuses as of 10/03/2023) [address]-2022 History of Past illness Narrative* Problem Noted Date Diagnosed Date Resolved Date Suicidal ideation 05/08/2022 07/19/2023 Last Assessment & Plan: Assessment: Stable Denies any SI Has not had any >2 years Leukocytosis 05/08/2022 07/19/2023 documented as of this encounter (statuses as of 10/03/2023) [address]-2022 History of Past illness Narrative* Problem Noted Date Diagnosed Date Resolved Date Suicidal ideation 05/08/2022 07/19/2023 Last Assessment & Plan: Assessment: Stable Denies any SI Has not had any >2 years Leukocytosis 05/08/2022 07/19/2023 documented as of this encounter (statuses as of 10/18/2023) [address]22 History of Past illness Narrative* Problem Noted Date Diagnosed Date Resolved Date Suicidal ideation 05/08/2022 07/19/2023 Last Assessment & Plan: Assessment: Stable Denies any SI Has not had any >2 years Leukocytosis 05/08/2022 07/19/2023 documented as of this encounter (statuses as of 11/08/2023) [facility]23[facility] Miscellaneous Notes* Telephone Encounter - Alesha Mascorro APRN.CNP - 03/28/2022 9:56 AM EDT Closing encounter. Patient reschedule for surgery Alesha Mascorro APRN.CNP * Telephone Encounter - Alpa Stratton RN - 02/02/2022 8:24 AM EDT Attempted to reach patient. VM left for patient to call office. Alpa Stratton RN * Telephone Encounter - Raymond Acevedo RN - 01/30/2022 3:32 PM EDT sr. manager message received from patient. Requests to speak [...] Dr. Katia Wilson. Addendum - sent to ACTIVITIES MANAGER jovanna in error - resending to [facility] explosive ordnance disposal technician team for follow-up. [facility] History of Present illness Narrative* Freda Gomezlucille - 03/23/2022 9:27 AM EDT [facility] [...] laboratory parameters, disease state markers and outcomes. [facility] Visit Assessment - Neurology: Assessment to use: Refill Non-Clinical Assessment: Patient confirmed: Yes Med/dose confirmed: Yes Supplies needed: N/A Missed doses: No Estimated days supply on hand: 15 Next cycle/dose due: 03/23/2022 Copay amount: 0 Payment confirmed: Yes Address confirmed: Yes Delivery method: FedEx Delivery address: [facility] [address] [place], [place] [id number] Delivery date: 03/31/2022 Patient has questions: No Additional questions, comments, concerns: Patient has requested that signature requirement be waived for delivery. Patient also updated address and asked to have all old one's on file removed Freda Curtis CPhT [facility] [phone] [facility] History of Present illness Narrative* Mallika Simmons RN - 03/14/2022 2:39 PM EDT The patient did not show up for this appointment. Mallika Simmons RN [facility] History of Present illness Narrative* Freda Small - 02/20/2022 11:06 AM EDT [facility] Refill Assessment Medication(s): Zeposia Therapy continues to be appropriate for disease, patient response, and medical condition. Verification of therapeutic benefit and effectiveness with current therapy. Adverse events, barriers in adherence, and side effects assessed and addressed. Will proceed with refill with no changes. [facility] Visit Assessment - Neurology: Assessment to use: Refill Non-Clinical Assessment: Patient confirmed: Yes Med/dose confirmed: Yes Supplies needed: N/A Missed doses: No Estimated days supply on hand: 12 Next cycle/dose due: 02/21/2022 Copay amount: 0 Payment confirmed: Yes Address confirmed: Yes Delivery method: FedEx Delivery address: [address] [place] [address] Delivery date: 02/23/2022 Patient has questions: No Additional questions, comments, concerns: Patient is aware of signature Vaccination Assessment: Date of influenza vaccination reminder: 04/13/2021 Date of most recent vaccination assessment: 04/13/2021 Freda Small [facility] P: [phone] F: [phone] [facility] Miscellaneous Notes* Telephone Encounter - Alpa Stratton [...] about her biopsy results Please advise patient: [phone] Kelsy Woodson [facility] Miscellaneous Notes* Telephone Encounter - Diann Diehl - 02/02/2022 2:55 PM EDTSummary: appointment lvm for patient to call so we can get them scheduled for a social work consult [facility] in [facility]06[facility]22 Miscellaneous Notes* Telephone Encounter - Jesenia Vargas RN - 01/31/2022 4:28 PM EDT Called patient Identified by name and date of Reviewed recommendations Patient verbalized understanding and agrees with plan No further concerns Patient's follow up appointment is scheduled for 02/10/2022 with Ness Farrell APRN, CNP * Telephone Encounter - Ness Farrell APRN.SHAYLA - 01/24/2022 4:44 PM EDT Yes, the [...] relaspe and was in a facility in [facility]. Dr. Salguero ... ordered the [...] : 02-03-22 Niki Luz documented in this encounter[facility]05-18-2022 Miscellaneous Notes* Telephone Encounter - Ness Clarke RPh - 12/21/2021 10:19 AM EDT Pt will be due for a refill of Zeposia soon. If therapy is being continued, please sign this order request to send refill via eRx to [facility]. Thanks! Pending Prescriptions Disp Refills ZEPOSIA 0.92 MG CAPSULE 90 capsule 3 Sig: Take 1 capsule by mouth once daily FARIBA: No Demi Clarke PharmD Clinical Pharmacist, Biologics, Neurology, and Hepatology [facility] ; Pool: P [facility] Pool #: [id number] documented in this encounter[facility]04-29-[facility] History of Present illness Narrative* Roosevelt Hernandez MD - 12/02/2021 8:00 AM EDT No show. documented in this encounterMed[facility]04-20-2022 History of Present illness Narrative* Ermelinda Rothman (Motiga) - 11/23/2021 10:09 AM EDT [facility] Refill Assessment Medication(s): zeposia Therapy continues to be appropriate for disease, patient response, and medical condition. Verification of therapeutic benefit and effectiveness with current therapy. Adverse events, barriers in adherence, and side effects assessed and addressed. Will proceed with refill with no changes. [facility] Visit Assessment - Neurology: Assessment to use: Refill Non-Clinical Assessment: Patient confirmed: Yes Med/dose confirmed: Yes Supplies needed: N/A Missed doses: No Estimated days supply on hand: 11 Next cycle/dose due: 11/24/2021 Copay amount: 0 Payment confirmed: Yes Address confirmed: Yes Delivery method: FedEx Delivery address: [address] [facility] [address] Delivery date: 11/29/2021 Patient has questions: No Additional questions, comments, concerns: Patient is aware that signature is required on delivery and confirmed someone will be home Vaccination Assessment: Date of influenza vaccination reminder: 04/13/2021 Date of most recent vaccination assessment: 04/13/2021 Ermelinda Rothman (Motiga) documented in this encounter[facility]03-24-2022 Instructions* Patient Instructions* Magdalene Drake PA-C - [...] 2022 - Follow-up in 6 months at [place] with [facility] documented in this encounterMedina Hospital03-24-2022 History of Present illness Narrative* Magdalene Drake PA-C - 10/27/2021 9:35 AM EDT Images from the original note were not included. [facility] FOLLOWUP/ESTABLISHED PATIENT VISIT [...] medicinal marijuana for pain Currently staying in [employer] in [place] Her apartment is under new ownership and she was evicted Unable to find new housing, was sleeping outside for 3 days She is trying to stay clean, she states she's a previous drug user Reports 4 falls in the last month Balance is worse recently She was doing PT in [place] at a sober house She was asked [...] better functioning) Office Visit from 10/27/2021 in [facility] Office Visit from 07/13/2021 in [facility] Upper Extremity Domain T Score 42.58 47.21 Lower Extremity Domain T Score 36.94 37.53 Cognitive Function Domain T Score 52.55 45.93 Positive Affect Well Being T Score Ability To Participate In Social Roles T Score 37.21 44.12 Satisfaction With Social Roles T Score 40.61 50.16 Neuro-QoL Symptoms (higher = worse symptoms) Office Visit from 10/27/2021 in [facility] Office Visit from 07/13/2021 in [facility] Sleep Domain T Score 67.68 68.05 [...] Depression Multiple sclerosis (HCC) Smoking Stroke (cerebrum) (HCC) [...] Performance Test Office Visit from 10/27/2021 in [facility] Office Visit from 07/13/2021 in [facility] Processing Speed Total Number Correct 40 [...] 5 Biceps 4+ 5 Triceps 4+ 5 Runner Worker 4+ 5 Dorsal interossei 4 5 Lower [...] for: JCVAB, JCVIND No results found for: [id number], ENHANCINGLES, CERVICALNEW, SPINEENHACIN ASSESSMENT/PLAN: - Bryan Cruz [...] her apartment, now homeless and staying at [employer] in [place]. She was recently approved for section [...] 2022 - Follow-up in [address] [facility] I spent a total of 45 minutes on the date of the service which included preparing to see the patient, [id number] patient care, completing clinical documentation, obtaining and/or reviewing separately obtained history, performing a medically appropriate examination, counseling and educating the pat ient/family/caregiver and ordering medications, tests, or procedures. Magdalene Drake PA-C documented in this encounterMedina Hospital02-15-2022 Evaluation note* Encounter Date Diagnosis Assessment Notes [...] very confused about biopsy results. we called monitoring tech office Dr. Montalvo and got her appt for 09/22 to go over everything. [facility] Other 01-11-2022 Evaluation note* Encounter Date Diagnosis Assessment Notes Treatment Notes Treatment Clinical Notes Aug, MS (multiple sclerosis) (ICD-10 - G35) [facility] Other 11-19-2021 Evaluation note* Encounter Date Diagnosis Assessment Notes Treatment Notes Treatment Clinical Notes Jun, Sweating profusely (ICD-10 - R61) exposure to covid. neg covid test. flu test was positive for A. no cough no real other symptoms. she will continue to monitor. Jun, MS (multiple sclerosis) (ICD-10 - G35) Follows with [facility] early July. 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 She does not want to continue with them because she does believe she needs a hysterectomy and she does not want operation at our local hospital. She would she requested to go to [place] we will place a referral. [facility] Other evaluation note* Diagnosis Multiple sclerosis (HCC)- Primary Multiple sclerosis Neuropathic pain Neuralgia, neuritis, and radiculitis, unspecified Spasticity Abnormal involuntary movements Blurry vision, bilateral Other specified visual disturbances Anxiety and depression Dysthymic disorder Homelessness Lack of housing Medication monitoring encounter Encounter for therapeutic drug monitoring Abnormal uterine bleeding (AUB) Fibroids Leiomyoma of uterus, unspecified [facility] Diagnosis NO SHOW Abnormal uterine bleeding (AUB) Fibroids Leiomyoma of uterus, unspecified [facility]* Diagnosis Multiple sclerosis (HCC)- Primary Multiple sclerosis Abnormal uterine bleeding (AUB) Fibroids Leiomyoma of uterus, unspecified documented in this encounter [facility]No InformationNort [employer] Style Other evaluation note* Diagnosis Neuropathic pain Neuralgia, neuritis, and radiculitis, unspecified Multiple sclerosis (HCC) [facility] Diagnosis Multiple sclerosis (HCC)- Primary [facility] Diagnosis NO SHOW- Primary [facility] Diagnosis Multiple sclerosis (HCC)- Primary [facility] Diagnosis Multiple sclerosis (HCC)- Primary [facility] Diagnosis Neuropathic pain Neuralgia, neuritis, and radiculitis, unspecified Multiple sclerosis (HCC) [facility]* Diagnosis Multiple sclerosis (HCC)- Primary Multiple sclerosis Abnormal uterine bleeding (AUB) Fibroids Leiomyoma of uterus, unspecified [facility] Diagnosis Multiple sclerosis (HCC)- Primary [facility] sclerosis [facility]* Diagnosis Multiple sclerosis (HCC)- Primary [facility] Diagnosis NO SHOW- Primary [facility]* Diagnosis Educational circumstances- Primary Educational circumstance [facility]* Diagnosis Pre-op evaluation- Primary Preoperative examination, unspecified Multiple sclerosis (HCC) Multiple sclerosis Mixed hyperlipidemia Current smoker Tobacco use disorder Recurrent major depressive disorder, remission status unspecified (HCC) Obesity, Class III, BMI >= 40 Morbid obesity Suicidal ideation History of cocaine abuse (HCC) Cocaine abuse, in remission Cerebrovascular accident (CVA), unspecified mechanism (HCC) [facility]* Diagnosis Multiple sclerosis (HCC)- Primary Multiple sclerosis Abnormal uterine bleeding (AUB) Fibroids Leiomyoma of uterus, unspecified [facility]* Diagnosis Onset Date Resolution Status Conjunctivitis acute Leukocytosis acute Mass of uterus acute Multiple sclerosis exacerbation acute [facility] Work Phone: Evaluation note* Diagnosis Multiple sclerosis (HCC)- Primary Multiple sclerosis Abnormal uterine bleeding (AUB) Fibroids Leiomyoma of uterus, unspecified [facility]* Diagnosis Encounter for pre-operative laboratory testing- Primary Preoperative examination, unspecified Abnormal uterine bleeding (AUB) Fibroids Leiomyoma of uterus, unspecified [facility]* Diagnosis Neuropathic pain Neuralgia, neuritis, and radiculitis, unspecified Multiple sclerosis (HCC) Multiple sclerosis Abnormal uterine bleeding (AUB) Fibroids Leiomyoma of uterus, unspecified [facility]* Diagnosis NO SHOW- Primary [facility]* Diagnosis Medication monitoring encounter- Primary Encounter for therapeutic drug monitoring Multiple sclerosis (HCC) Multiple sclerosis Vitamin D deficiency Unspecified vitamin D deficiency [facility]* Diagnosis Multiple sclerosis (HCC)- Primary Multiple sclerosis [facility]* Diagnosis Multiple sclerosis (HCC)- Primary Multiple sclerosis [facility]* Diagnosis Multiple sclerosis (HCC)- Primary Multiple sclerosis Medication monitoring encounter Encounter for therapeutic drug monitoring Vitamin D deficiency Unspecified vitamin D deficiency [facility] noteNo assessment [facility]: evaluation note* Diagnosis Multiple sclerosis (HCC)- Primary Multiple sclerosis Spasticity Abnormal involuntary movements Neuropathic pain Neuralgia, neuritis, and radiculitis, unspecified Anxiety and depression Dysthymic disorder Encounter for medication monitoring Encounter for therapeutic drug monitoring Hypovitaminosis D Unspecified vitamin D deficiency [facility]* Diagnosis Multiple sclerosis (HCC)- Primary Multiple sclerosis Encounter for medication monitoring Encounter for therapeutic drug monitoring Vitamin D deficiency Unspecified vitamin D deficiency [facility] Diagnosis Multiple sclerosis (HCC)- Primary Multiple sclerosis Demyelinating disease of central nervous system (HCC) Demyelinating disease of central nervous system, unspecified Neuropathic pain Neuralgia, neuritis, and radiculitis, unspecified Vitamin D deficiency Unspecified vitamin D deficiency Spasticity Abnormal involuntary movements Constipation, unspecified constipation type History of dry mouth Disturbance of salivary secretion Urinary retention Retention of urine, unspecified [facility]* Diagnosis Chronic bilateral low back pain without sciatica- Primary Breast pain in female Mastodynia Multiple sclerosis (HCC) Multiple sclerosis Current every day smoker Tobacco use disorder Morbid obesity with BMI of 40.0-44.9, adult (HCC) Morbid obesity [facility]* Diagnosis Multiple sclerosis exacerbation (HCC)- Primary Multiple sclerosis documented in this encounter [facility] note* Diagnosis Multiple sclerosis exacerbation (HCC)- Primary Multiple sclerosis documented in this encounter [facility] note* Diagnosis Multiple sclerosis (HCC)- Primary Multiple sclerosis Cognitive communication deficit [facility]* Diagnosis Multiple sclerosis (HCC)- Primary Multiple sclerosis Rash Rash and other nonspecific skin eruption [facility] Diagnosis Rash Rash and other nonspecific skin eruption [facility]* Diagnosis Neuropathic pain Neuralgia, neuritis, and radiculitis, unspecified Multiple sclerosis (HCC) Multiple sclerosis [facility]* Diagnosis Fibroid- Primary Leiomyoma of uterus, unspecified [facility]* Diagnosis Multiple sclerosis (HCC)- Primary Multiple sclerosis [facility]* Diagnosis Multiple sclerosis (HCC) Multiple sclerosis [facility] Diagnosis Spasticity Abnormal involuntary movements [facility]* Diagnosis Multiple sclerosis (HCC)- Primary Multiple sclerosis [facility]* Diagnosis Multiple sclerosis (HCC) Multiple sclerosis Neuropathic pain Neuralgia, neuritis, and radiculitis, unspecified [facility]* Diagnosis Multiple sclerosis (HCC)- Primary Multiple sclerosis [facility]* Diagnosis Multiple sclerosis (HCC)- Primary Multiple [...] of salivary secretion [facility]* Diagnosis Multiple sclerosis (HCC) Multiple sclerosis [facility]* Diagnosis Multiple sclerosis (HCC)- Primary Multiple sclerosis [facility]* Diagnosis Encounter for Papanicolaou smear for cervical cancer screening- Primary Encounter for gynecological examination (general) (routine) without abnormal findings PMB (postmenopausal bleeding) Postmenopausal bleeding Encounter for screening mammogram for malignant neoplasm of breast Other screening mammogram [facility]* Diagnosis Multiple sclerosis (HCC)- Primary Multiple sclerosis [facility]* Diagnosis Pre-op evaluation- Primary Preoperative examination, unspecified Multiple sclerosis (HCC) Multiple sclerosis Mixed hyperlipidemia Current smoker Tobacco use disorder Recurrent major depressive disorder, remission status unspecified (HCC) Obesity, Class III, BMI >= 40 Morbid obesity Suicidal ideation History of cocaine abuse (HCC) Cocaine abuse, in remission Cerebrovascular accident (CVA), unspecified mechanism (HCC) Multiple sclerosis (HCC)- Primary Multiple sclerosis [facility]* Diagnosis Pre-op evaluation- Primary Preoperative examination, [...] vitamin D deficiency [facility]* Diagnosis Pre-op evaluation- Primary Preoperative examination, [...] (HCC) Multiple sclerosis [facility]* Diagnosis Pre-op evaluation- Primary Preoperative examination, unspecified Multiple sclerosis (HCC) Multiple sclerosis Mixed hyperlipidemia Current smoker Tobacco use disorder Recurrent major depressive disorder, remission status unspecified (HCC) Obesity, Class III, BMI >= 40 Morbid obesity Suicidal ideation History of cocaine abuse (HCC) Cocaine abuse, in remission Cerebrovascular accident (CVA), unspecified mechanism (HCC) Multiple sclerosis (HCC)- Primary Multiple sclerosis [facility]* Diagnosis Pre-op evaluation- Primary Preoperative examination, [...] and radiculitis, unspecified [facility]* Diagnosis Pre-op evaluation- Primary Preoperative examination, unspecified Multiple sclerosis (HCC) Multiple sclerosis Mixed hyperlipidemia Current smoker Tobacco use disorder Recurrent major depressive disorder, remission status unspecified (HCC) Obesity, Class III, BMI >= 40 Morbid obesity Suicidal ideation History of cocaine abuse (HCC) Cocaine abuse, in remission Cerebrovascular accident (CVA), unspecified mechanism (HCC) Multiple sclerosis (HCC) Multiple sclerosis [facility]* Diagnosis Pre-op evaluation- Primary Preoperative examination, unspecified Multiple sclerosis (HCC) Multiple sclerosis Mixed hyperlipidemia Current smoker Tobacco use disorder Recurrent major depressive disorder, remission status unspecified (HCC) Obesity, Class III, BMI >= 40 Morbid obesity Suicidal ideation History of cocaine abuse (HCC) Cocaine abuse, in remission Cerebrovascular accident (CVA), unspecified mechanism (HCC) PMB (postmenopausal bleeding) Postmenopausal bleeding [facility]* Diagnosis Pre-op evaluation- Primary Preoperative examination, unspecified Multiple sclerosis (HCC) Multiple sclerosis Mixed hyperlipidemia Current smoker Tobacco use disorder Recurrent major depressive disorder, remission status unspecified (HCC) Obesity, Class III, BMI >= 40 Morbid obesity Suicidal ideation History of cocaine abuse (HCC) Cocaine abuse, in remission Cerebrovascular accident (CVA), unspecified mechanism (HCC) PMB (postmenopausal bleeding) Postmenopausal bleeding [facility]* Diagnosis Pre-op evaluation- Primary Preoperative examination, [...] Other abnormal glucose documented in this encounter [facility] note* Diagnosis Pre-op evaluation- Primary [...] and radiculitis, unspecified documented in this encounter [facility] note* Diagnosis Pre-op evaluation- Primary [...] (HCC) Multiple sclerosis documented in this encounter [facility] note* Diagnosis Pre-op evaluation- Primary [...] Primary Multiple sclerosis documented in this encounter [facility] note* Diagnosis Multiple sclerosis exacerbation [...] whether recurrent (HCC) documented in this encounter [facility] note* Diagnosis Pre-op evaluation- Primary Preoperative examination, [...] therapeutic drug monitoring documented in this encounter [facility] note* Diagnosis Pre-op evaluation- Primary [...] Primary Multiple sclerosis documented in this encounter [facility] note* Diagnosis Pre-op evaluation- Primary [...] vitamin D deficiency [facility]* Diagnosis Pre-op evaluation- Primary Preoperative examination, unspecified Multiple sclerosis (HCC) Multiple sclerosis Mixed hyperlipidemia Current smoker Tobacco use disorder Recurrent major depressive disorder, remission status unspecified (HCC) Obesity, Class III, BMI >= 40 Morbid obesity Suicidal ideation History of cocaine abuse (HCC) Cocaine abuse, in remission Cerebrovascular accident (CVA), unspecified mechanism (HCC) Multiple sclerosis (HCC)- Primary Multiple sclerosis documented in this encounter [facility] note* Diagnosis Pre-op evaluation- Primary [...] Neuropathic pain Neuralgia, neuritis, and radiculitis, unspecified Mixed hyperlipidemia documented in this encounter [facility] note* Diagnosis Pre-op evaluation- Primary [...] Primary Multiple sclerosis documented in this encounter [facility] note* Diagnosis Pre-op evaluation- Primary Preoperative examination, unspecified Multiple sclerosis (HCC) Multiple sclerosis Mixed hyperlipidemia Current smoker Tobacco use disorder Recurrent major depressive disorder, remission status unspecified (HCC) Obesity, Class III, BMI >= 40 Morbid obesity Suicidal ideation History of cocaine abuse (HCC) Cocaine abuse, in remission Cerebrovascular accident (CVA), unspecified mechanism (HCC) Multiple sclerosis (HCC)- Primary Multiple sclerosis Paresthesias Disturbance of skin sensation Elevated hemoglobin A1c Other abnormal blood chemistry Urinary frequency Spasticity Abnormal involuntary movements Other constipation documented in this encounter [facility] note* Diagnosis Pre-op evaluation- Primary Preoperative examination, unspecified Multiple sclerosis (HCC) Multiple sclerosis Mixed hyperlipidemia Current smoker Tobacco use disorder Recurrent major depressive disorder, remission status unspecified (HCC) Obesity, Class III, BMI >= 40 Morbid obesity Suicidal ideation History of cocaine abuse (HCC) Cocaine abuse, in remission Cerebrovascular accident (CVA), unspecified mechanism (HCC) Low serum vitamin B12- Primary Multiple sclerosis (HCC) Multiple sclerosis documented in this encounter [facility] general Narrative - Reported* Type Description Date Medical History High Cholesterol Medical History depression Medical History stroke Medical History multiple sclerosis Surgical History Hospitalization History see above [facility] [employer] Other History [facility] - [facility] [employer] Other Reason for referral (narrative)* Diagnostic Procedure Only (Routine) - Authorized Specialty Diagnoses / Procedures Referred By Contac t Referred To Contact [facility] Diagnoses Breast pain in female Procedures [facility] BILATERAL DIAGNOSTIC MAMMOGRAPHY COMPUTER-AIDED DETCJ BI Sandro Burgos MD [address] [place] [address] [facility] [address] [place] [address] Referral ID Status Reason Start Date Expiration Date Visits Requested Visits Authorized [id number] Authorized Auto-Generat ed Referral 3 08/17/2024 1 1 [facility] for referral (narrative)* Diagnostic Procedure Only (Routine) - Pending Review Specialty Diagnoses / Procedures [facility] Referred To Contact [facility] Diagnoses Fibroid Procedures PELVIC US WHI US PELVIC NONOBSTETRIC REAL-TIME IMAGE COMPLETE Jahaira Olmos, SCABBLER.MAID HOUSEKEEPER [address] [facility] [place] [address] [facility] [address] [place] [address] Referral ID Status Reason Start Date Expiration Date Visits Requested Visits Authorized [id number] Pending Review Auto-Generat ed Referral 09/17/2023 09/16/2024 1 1 [facility] for referral (narrative)* Diagnostic Procedure Only (Routine) - Authorized Specialty Diagnoses / Procedures Referred By Contac t Referred To Contact [facility] Diagnoses PMB (postmenopausal bleeding) Procedures PELVIC US WHI US PELVIC NONOBSTETRIC REAL-TIME IMAGE COMPLETE Freda Hernandez APRN.CNP [address] [place] [address] [facility] [address] [place] [address] Referral ID Status Reason Start Date Expiration Date Visits Requested Visits Authorized [id number] Authorized Auto-Generat ed Referral 06/05/2025 1 1 [facility] for referral (narrative)* Tests/Procedures (Routine) Specialty Diagnoses / Procedures Referred By Contact Referred To Contact Cardiovascular Testing Yousif Gillette MD [address] [facility] [place] [address] Phone: tel: fax: [facility] CARD NON INVASIVE [address] [place] [address] Phone: tel: Referral ID Status Reason Start [...] call the [facility] at [phone] (BEAT) if you are unable to keep [...] resp. rate 16, SpO2 100%. ACUTE32/32 [email or web address] [facility] for visit Narrative* Treatment Plan and Therapy Plan (Routine) - Pending Review Specialty Diagnoses / Procedures Referred By Adam garvey Referred To Contact Diagnoses Multiple sclerosis exacerbation (HCC) Jeffery Cantu, DO [address] [place] [address] [facility] [address] [place] [address] Referral ID Status Reason Start Date Expiration Date V isits Requested Visits Authorized [id number] Pending Review 08/14/2023 08/13/2024 1 1 [facility] for visit Narrative* Diagnostic Procedure Only (Routine) - Closed Specialty Diagnoses / Procedures Referred By Adam garvey Referred To Contact [facility] Diagnoses PMB (postmenopausal bleeding) Procedures PELVIC US WHI US PELVIC NONOBSTETRIC REAL-TIME IMAGE COMPLETE Freda Hernandez, SCABBLER.[facility] [address] [place] [id number] [facility] [address] [place] [address] Referral ID Status Reason Start Date Expiration Date V isits Requested Visits Authorized [id number] Closed Auto-Generate d Referral 06/05/2024 06/05/2025 1 1 [facility] Summary Purpose Family History No Family History [...] garvey Referred To Contact Diagnoses Multiple sclerosis (HCC) Anxiety and depression Homelessness Procedures CONSULT TO PSYCHIATRY OFFICE/OUTPATIENT [facility] 60-74 MINUTES Magdalene Drake PA-C [address] [place] [id number] Referral ID Status Reason Start Date Expiration Date Visits Requested Visits Authorized [id number] Pending Review PCP Requested Referral 10/27/2021 10/27/2022 1 1 Specialty Diagnoses / Procedures Referred By Adam garvey Referred To Contact Ophthalmology Diagnoses Multiple sclerosis (HCC) Blurry vision, bilateral Procedures CONSULT TO OPHTHALMOLOGY OFFICE/OUTPATIENT [facility] 60-74 MINUTES Magdalene Drake PA-C [address] [place] [address] Referral ID Status Reason Start Date Expiration Date Visits Requested Visits Authorized [id number] Authorized PCP Requested Referral 10/27/2021 10/27/2022 1 1 Reason * webster, uterine fi broids Diagnosis 1 Uterine leiomyoma, u nspecified location (D25.9) Referral Organization [facility] Family Agata Curry Referring Provider First Name Rina Referring Provider Last Name Alexys Referring Provider Specialty Family [facility] Referred Organization Unknown Facility Referred Provider Specialty [...] Pain in unspecified foot (M79.673) Referral Organization [facility] Family Agata Curry Referring Provider First Name Rina Referring Provider Last Name Alexys Referring Provider Specialty [facility] Referred Organization Unknown Facility Referred Provider Specialty Podiatry - S urgical Chiropody Referral Priority Routine Specialty Diagnoses / Procedures Referred By Adam garvey Referred To Contact Psychology Diagnoses Multiple sclerosis (HCC) Anxiety and depression Procedures CONSULT TO PSYCHOLOGY OFFICE/OUTPATIENT [facility] 60-74 MINUTES Ellen Rothman MD [address] [place] [id number] Referral ID Status Reason Start Date Expiration Date Visits Requested Visits Authorized [id number] Pending Review PCP Requested Referral 04/18/2023 04/17/2024 1 1 Specialty Diagnoses / Procedures Referred By Adam garvey Referred To Contact MR IMAGING Diagnoses Multiple sclerosis (HCC) Encounter for medication monitoring Procedures MRI CERVICAL SPINE WO/W IVCON MRI SPINAL CANAL CERVICAL W/O & W/CONTR MATRL Ellen Rothman MD [address] [facility] [address] [address] [facility] [place] [address] Referral ID Status Reason Start Date Expiration Date Visits Requested Visits Authorized [id number] Pending Review Auto-Generat ed Referral 04/18/2023 05/17/2024 1 1 Specialty Diagnoses / Procedures Referred By Adam garvey Referred To Contact [facility] IMAGING Diagnoses Multiple sclerosis (HCC) Encounter for medication monitoring Procedures MRI BRAIN WO/W IVCON MRI BRAIN BRAIN STEM W/O W/CONTRAST MATERIAL Ellen Rothman MD [address] [place] [address] [facility] [place] [address] Referral ID Status Reason Start Date Expiration Date Visits Requested Visits Authorized [id number] Pending Review Auto-Generat ed Referral 04/18/2023 05/17/2024 1 1 Specialty Diagnoses / Procedures Referred By Adam garvey Referred To Contact FAMILY MEDICINE Diagnoses Multiple sclerosis (HCC) Anxiety and depression Encounter for medication monitoring Procedures ESTABLISH WITH PRIMARY CARE NEW PATIENT OFFICE/OUTPATIENT [facility] 60-74 MINUTES Ellen Rothman MD [address] [place] [address] [facility] [address] [place] [address] Referral ID Status Reason Start Date Expiration Date Visits Requested Visits Authorized [id number] Pending Review PCP Requested Referral 04/18/2023 04/17/2024 1 1 Specialty Diagnoses / Procedures Referred By Adam t Referred To Contact Ophthalmology Diagnoses Multiple sclerosis (HCC) Procedures CONSULT TO OPHTHALMOLOGY OFFICE/OUTPATIENT [facility] 60-74 MINUTES Raymond Kemp, MARINO.MAID HOUSEKEEPER [address] [place] [address] Referral ID Status Reason Start Date Expiration Date Visits Requested Visits Authorized [id number] Authorized PCP Requested Referral 3 07/18/2024 1 1 Specialty Diagnoses / Procedures Referred By Adam garvey Referred To Contact [facility] IMAGING Diagnoses Multiple sclerosis (HCC) Demyelinating disease of central nervous system (HCC) Procedures MRI THORACIC SPINE WO/W IVCON MRI SPINAL CANAL THORACIC W/O & W/CONTR MATRL Raymond Kemp APRN.MAID HOUSEKEEPER [address] [place] [address] [facility] Referral ID Status Reason Start Date Expiration Date Visits Requested Visits Authorized [id number] Pending Review Auto-Generat ed Referral 3 08/17/2024 1 1 Specialty Diagnoses / Procedures Referred By Adam t Referred To Contact [facility] Diagnoses Multiple sclerosis (HCC) Cognitive communication deficit Procedures CONSULT TO SPEECH THERAPY OFFICE/OUTPATIENT [facility] 60 MINUTES Raymond Kemp, MARINO.MAID HOUSEKEEPER [address] [place] [address] [facility] [place] [address] [place] [address] Referral ID Status Reason Start Date Expiration Date Visits Requested Visits Authorized [id number] Pending Review Auto-Generat ed Referral 09/06/2023 09/05/2024 1 1 Specialty Diagnoses / Procedures Referred By Adam t Referred To Contact Diagnoses Multiple sclerosis (HCC) Snoring Procedures CONSULT TO SLEEP MEDICINE - ADULT OFFICE/OUTPATIENT [facility] 60 MINUTES Raymond Kemp, MARINO.MAID HOUSEKEEPER [address] [place] [address] Referral ID Status Reason Start Date Expiration Date Visits Requested Visits Authorized [id number] Authorized PCP Requested Referral 01/31/2024 01/30/2025 1 1 Specialty Diagnoses / Procedures Referred By Adam t Referred To Contact [facility]AGING Diagnoses Multiple sclerosis (HCC) Encounter for medication monitoring Procedures MRI BRAIN WO/W IVCON MRI BRAIN BRAIN STEM W/O W/CONTRAST MATERIAL Raymond Kemp APRN.MAID HOUSEKEEPER [address] [place] [address] [facility] [place] [address] Referral ID Status Reason Start Date Expiration Date Visits Requested Visits Authorized [id number] Authorized Auto-Generat ed Referral 03/01/2025 1 1 Specialty Diagnoses / Procedures Referred By Adam garvey Referred To Contact Diagnoses PMB (postmenopausal bleeding) Procedures CONSULT TO MINIMALLY INVASIVE GYNECOLOGIC SURGERY OFFICE/OUTPATIENT [facility] [address] [place] [address] [place] [address] Referral ID Status Reason Start Date Expiration Date Visits Requested Visits Authorized [id number] Authorized PCP Requested Referral Auto-Generate d Referral 02/14/2024 02/13/2025 1 1 Specialty Diagnoses / Procedures Referred By Adam t Referred To Contact [facility] Diagnoses Encounter for screening mammogram for malignant neoplasm of breast Procedures ELIZABETH SCREENING SCREENING MAMMOGRAPHY BI 2-[place] [address] [place] [address] [facility] [address] [place] [id number] Referral ID Status Reason Start Date Expiration Date Visits Requested Visits Authorized [id number] Authorized Auto-Generat ed Referral 02/14/2024 03/15/2025 1 1 Specialty Diagnoses / Procedures Referred By Adam t Referred To Contact Optometry Diagnoses Multiple sclerosis (HCC) Procedures CONSULT TO OPTOMETRY OFFICE/OUTPATIENT [facility] 60 MINUTES Raymond Kemp, MARINO.MAID HOUSEKEEPER [address] [place] [address] Referral ID Status Reason Start Date Expiration Date Visits Requested Visits Authorized [id number] Authorized PCP Requested Referral 05/08/2024 05/08/2025 1 1 Specialty Diagnoses / Procedures Referred By Contac t Referred To Contact MR IMAGING Diagnoses Multiple sclerosis (HCC) Procedures MRI CERVICAL SPINE WO/W IVCON MRI SPINAL CANAL CERVICAL W/O & W/CONTR MATRL Raymond Kemp, MARINO.MAID HOUSEKEEPER [address] [place] [address] [facility] [place] [address] Referral ID Status Reason Start Date Expiration Date Visits Requested Visits Authorized [id number] Authorized Auto-Generat ed Referral 05/08/2024 06/07/2025 1 1 Specialty Diagnoses / Procedures Referred By Contac t Referred To Contact Orthopedics Diagnoses Pain in joint of right hand Multiple sclerosis (HCC) Procedures CONSULT PANEL TO ORTHOPAEDICS OFFICE/OUTPATIENT [facility] 60 MINUTES Raymond Kemp, SCABBLER.MAID HOUSEKEEPER [address] [place] [address] Referral ID Status Reason Start Date Expiration Date Visits Requested Visits Authorized [id number] Authorized PCP Requested Referral 05/08/2024 05/08/2025 1 1 Specialty Diagnoses / Procedures Referred By Contac t Referred To Contact XR IMAGING Diagnoses Pain in joint of right hand Multiple sclerosis (HCC) Procedures XR HAND GENERAL 3V PA/LAT/OBL RIGHT RADEX HAND MINIMUM 3 VIEWS Raymond Kemp, SCABBLER.MAID HOUSEKEEPER [address] [place] [address] X[facility] [place] [address] Referral ID Status Reason Start Date Expiration Date Visits Requested Visits Authorized [id number] Authorized Auto-Generat ed Referral 05/08/2024 06/07/2025 1 1 Referral ID Status Reason Start Date Expiration Date V isits Requested Visits Authorized [id number] Closed Auto-Generate d Referral 05/08/2024 06/07/2025 1 1 Referral ID Status Reason Start Date Expiration Date V isits Requested Visits Authorized [id number] Closed Auto-Generate d Referral 08/01/2024 03/01/2025 1 1 Chief Complaint and Reason for Visit Chief Complaint I10 Leukocytosis Reason for Visit Conjunctivitis Leukocytosis Mass of uterus Multiple sclerosis exacerbation Chief Complaint Bug bite Chief Complaint n64.4 Chief Complaint g35 z51.81 r53.83 e5 5.9 Additional Source Comments INFORMATION SOURCE (unrecogn ized section and content) DATE CREATED AUTHOR 02/28/2020 [facility] DATE CREATED AUTHOR AUTHOR'S ORGANIZ ATION 08/29/2020 [facility] DATE CREATED AUTHOR AUTHOR'S ORGANIZ ATION 08/31/2021 [facility] DATE CREATED AUTHOR AUTHOR'S ORGANIZ ATION 08/16/2023 [facility] DATE CREATED AUTHOR AUTHOR'S ORGANIZ ATION 08/16/2023 [facility] DATE CREATED AUTHOR AUTHOR'S ORGANIZ ATION 09/02/2023 [facility] DATE CREATED AUTHOR AUTHOR'S ORGANIZ ATION 02/21/2024 [facility] DATE CREATED AUTHOR AUTHOR'S ORGANIZ ATION 07/17/2024 [facility] DATE CREATED AUTHOR AUTHOR'S ORGANIZ ATION 10/16/2024 [facility] Source Comments (unrecognize d section and content) In the event this informatio n is protected by the Federal Confidentiality of Alcohol and Drug Abuse Patient Records regulations: The Federal rules restrict any use of the information to criminally investigate or prosecute any alcohol or drug abuse patient.[facility] Hospital[facility] the event this information is protected by the Federal Confidentiality of Alcohol and Drug Abuse Patient Records regulations: The Federal rules restrict any use of the information to criminally investigate or prosecute any alcohol or drug abuse patient.[facility] HospitalIn the event this information is protected by the Federal Confidentiality of Alcohol and Drug Abuse Patient Records regulations: The Federal rules restrict any use of the information to criminally investigate or prosecute any alcohol or drug abuse patient.[facility] HospitalIn the event this information is protected by the Federal Confidentiality of Alcohol and Drug Abuse Patient Records regulations: The Federal rules restrict any use of the information to criminally investigate or prosecute any alcohol or drug abuse patient.[facility] HospitalIn the event this information is protected by the Federal Confidentiality of Alcohol and Drug Abuse Patient Records regulations: The Federal rules restrict any use of the information to criminally investigate or prosecute any alcohol or drug abuse patient.[facility] HospitalIn the event this information is protected by the Federal Confidentiality of Alcohol and Drug Abuse Patient Records regulations: The Federal rules restrict any use of the information to criminally investigate or prosecute any alcohol or drug abuse patient.[facility] HospitalIn the event this information is protected by the Federal Confidentiality of Alcohol and Drug Abuse Patient Records regulations: The Federal rules restrict any use of the information to criminally investigate or prosecute any alcohol or drug abuse patient.[facility] HospitalIn the event this information is protected by the Federal Confidentiality of Alcohol and Drug Abuse Patient Records regulations: The Federal rules restrict any use of the information to criminally investigate or prosecute any alcohol or drug abuse patient.[facility] HospitalIn the event this information is protected by the Federal Confidentiality of Alcohol and Drug Abuse Patient Records regulations: The Federal rules restrict any use of the information to criminally investigate or prosecute any alcohol or drug abuse patient.[facility] HospitalIn the event this information is protected by the Federal Confidentiality of Alcohol and Drug Abuse Patient Records regulations: The Federal rules restrict any use of the information to criminally investigate or prosecute any alcohol or drug abuse patient.[facility] HospitalIn the event this information is protected by the Federal Confidentiality of Alcohol and Drug Abuse Patient Records regulations: The Federal rules restrict any use of the information to criminally investigate or prosecute any alcohol or drug abuse patient.[facility] HospitalIn the event this information is protected by the Federal Confidentiality of Alcohol and Drug Abuse Patient Records regulations: The Federal rules restrict any use of the information to criminally investigate or prosecute any alcohol or drug abuse patient.[facility] HospitalIn the event this information is protected by the Federal Confidentiality of Alcohol and Drug Abuse Patient Records regulations: The Federal rules restrict any use of the information to criminally investigate or prosecute any alcohol or drug abuse patient.[facility] HospitalIn the event this information is protected by the Federal Confidentiality of Alcohol and Drug Abuse Patient Records regulations: The Federal rules restrict any use of the information to criminally investigate or prosecute any alcohol or drug abuse patient.[facility] HospitalIn the event this information is protected by the Federal Confidentiality of Alcohol and Drug Abuse Patient Records regulations: The Federal rules restrict any use of the information to criminally investigate or prosecute any alcohol or drug abuse patient.[facility] HospitalIn the event this information is protected by the Federal Confidentiality of Alcohol and Drug Abuse Patient Records regulations: The Federal rules restrict any use of the information to criminally investigate or prosecute any alcohol or drug abuse patient.[facility] HospitalIn the event this information is protected by the Federal Confidentiality of Alcohol and Drug Abuse Patient Records regulations: The Federal rules restrict any use of the information to criminally investigate or prosecute any alcohol or drug abuse patient.[facility] HospitalIn the event this information is protected by the Federal Confidentiality of Alcohol and Drug Abuse Patient Records regulations: The Federal rules restrict any use of the information to criminally investigate or prosecute any alcohol or drug abuse patient.[facility] the event this information is protected by the Federal Confidentiality of Alcohol and Drug Abuse Patient Records regulations: The Federal rules restrict any use of the information to criminally investigate or prosecute any alcohol or drug abuse patient.[facility] HospitalIn the event this information is protected by the Federal Confidentiality of Alcohol and Drug Abuse Patient Records regulations: The Federal rules restrict any use of the information to criminally investigate or prosecute any alcohol or drug abuse patient.[facility] HospitalIn the event this information is protected by the Federal Confidentiality of Alcohol and Drug Abuse Patient Records regulations: The Federal rules restrict any use of the information to criminally investigate or prosecute any alcohol or drug abuse patient.[facility] HospitalIn the event this information is protected by the Federal Confidentiality of Alcohol and Drug Abuse Patient Records regulations: The Federal rules restrict any use of the information to criminally investigate or prosecute any alcohol or drug abuse patient.[facility] HospitalIn the event this information is protected by the Federal Confidentiality of Alcohol and Drug Abuse Patient Records regulations: The Federal rules restrict any use of the information to criminally investigate or prosecute any alcohol or drug abuse patient.[facility] HospitalIn the event this information is protected by the Federal Confidentiality of Alcohol and Drug Abuse Patient Records regulations: The Federal rules restrict any use of the information to criminally investigate or prosecute any alcohol or drug abuse patient.[facility] HospitalIn the event this information is protected by the Federal Confidentiality of Alcohol and Drug Abuse Patient Records regulations: The Federal rules restrict any use of the information to criminally investigate or prosecute any alcohol or drug abuse patient.[facility] HospitalIn the event this information is protected by the Federal Confidentiality of Alcohol and Drug Abuse Patient Records regulations: The Federal rules restrict any use of the information to criminally investigate or prosecute any alcohol or drug abuse patient.[facility] HospitalIn the event this information is protected by the Federal Confidentiality of Alcohol and Drug Abuse Patient Records regulations: The Federal rules restrict any use of the information to criminally investigate or prosecute any alcohol or drug abuse patient.[facility] HospitalIn the event this information is protected by the Federal Confidentiality of Alcohol and Drug Abuse Patient Records regulations: The Federal rules restrict any use of the information to criminally investigate or prosecute any alcohol or drug abuse patient.[facility] HospitalIn the event this information is protected by the Federal Confidentiality of Alcohol and Drug Abuse Patient Records regulations: The Federal rules restrict any use of the information to criminally investigate or prosecute any alcohol or drug abuse patient.[facility] HospitalIn the event this information is protected by the Federal Confidentiality of Alcohol and Drug Abuse Patient Records regulations: The Federal rules restrict any use of the information to criminally investigate or prosecute any alcohol or drug abuse patient.[facility] HospitalIn the event this information is protected by the Federal Confidentiality of Alcohol and Drug Abuse Patient Records regulations: The Federal rules restrict any use of the information to criminally investigate or prosecute any alcohol or drug abuse patient.[facility] HospitalIn the event this information is protected by the Federal Confidentiality of Alcohol and Drug Abuse Patient Records regulations: The Federal rules restrict any use of the information to criminally investigate or prosecute any alcohol or drug abuse patient.[facility] HospitalIn the event this information is protected by the Federal Confidentiality of Alcohol and Drug Abuse Patient Records regulations: The Federal rules restrict any use of the information to criminally investigate or prosecute any alcohol or drug abuse patient.[facility] HospitalIn the event this information is protected by the Federal Confidentiality of Alcohol and Drug Abuse Patient Records regulations: The Federal rules restrict any use of the information to criminally investigate or prosecute any alcohol or drug abuse patient.[facility] HospitalIn the event this information is protected by the Federal Confidentiality of Alcohol and Drug Abuse Patient Records regulations: The Federal rules restrict any use of the information to criminally investigate or prosecute any alcohol or drug abuse patient.[facility] HospitalIn the event this information is protected by the Federal Confidentiality of Alcohol and Drug Abuse Patient Records regulations: The Federal rules restrict any use of the information to criminally investigate or prosecute any alcohol or drug abuse patient.[facility] HospitalIn the event this information is protected by the Federal Confidentiality of Alcohol and Drug Abuse Patient Records regulations: The Federal rules restrict any use of the information to criminally investigate or prosecute any alcohol or drug abuse patient.[facility] HospitalIn the event this information is protected by the Federal Confidentiality of Alcohol and Drug Abuse Patient Records regulations: The Federal rules restrict any use of the information to criminally investigate or prosecute any alcohol or drug abuse patient.[facility] HospitalIn the event this information is protected by the Federal Confidentiality of Alcohol and Drug Abuse Patient Records regulations: The Federal rules restrict any use of the information to criminally investigate or prosecute any alcohol or drug abuse patient.[facility] HospitalIn the event this information is protected by the Federal Confidentiality of Alcohol and Drug Abuse Patient Records regulations: The Federal rules restrict any use of the information to criminally investigate or prosecute any alcohol or drug abuse patient.[facility] HospitalIn the event this information is protected by the Federal Confidentiality of Alcohol and Drug Abuse Patient Records regulations: The Federal rules restrict any use of the information to criminally investigate or prosecute any alcohol or drug abuse patient.[facility] HospitalIn the event this information is protected by the Federal Confidentiality of Alcohol and Drug Abuse Patient Records regulations: The Federal rules restrict any use of the information to criminally investigate or prosecute any alcohol or drug abuse patient.[facility] HospitalIn the event this information is protected by the Federal Confidentiality of Alcohol and Drug Abuse Patient Records regulations: The Federal rules restrict any use of the information to criminally investigate or prosecute any alcohol or drug abuse patient.[facility] HospitalIn the event this information is protected by the Federal Confidentiality of Alcohol and Drug Abuse Patient Records regulations: The Federal rules restrict any use of the information to criminally investigate or prosecute any alcohol or drug abuse patient.[facility] HospitalIn the event this information is protected by the Federal Confidentiality of Alcohol and Drug Abuse Patient Records regulations: The Federal rules restrict any use of the information to criminally investigate or prosecute any alcohol or drug abuse patient.[facility] HospitalIn the event this information is protected by the Federal Confidentiality of Alcohol and Drug Abuse Patient Records regulations: The Federal rules restrict any use of the information to criminally investigate or prosecute any alcohol or drug abuse patient.[facility] HospitalIn the event this information is protected by the Federal Confidentiality of Alcohol and Drug Abuse Patient Records regulations: The Federal rules restrict any use of the information to criminally investigate or prosecute any alcohol or drug abuse patient.[facility] HospitalIn the event this information is protected by the Federal Confidentiality of Alcohol and Drug Abuse Patient Records regulations: The Federal rules restrict any use of the information to criminally investigate or prosecute any alcohol or drug abuse patient.[facility] HospitalIn the event this information is protected by the Federal Confidentiality of Alcohol and Drug Abuse Patient Records regulations: The Federal rules restrict any use of the information to criminally investigate or prosecute any alcohol or drug abuse patient.[facility] HospitalIn the event this information is protected by the Federal Confidentiality of Alcohol and Drug Abuse Patient Records regulations: The Federal rules restrict any use of the information to criminally investigate or prosecute any alcohol or drug abuse patient.[facility] HospitalIn the event this information is protected by the Federal Confidentiality of Alcohol and Drug Abuse Patient Records regulations: The Federal rules restrict any use of the information to criminally investigate or prosecute any alcohol or drug abuse patient.[facility] HospitalIn the event this information is protected by the Federal Confidentiality of Alcohol and Drug Abuse Patient Records regulations: The Federal rules restrict any use of the information to criminally investigate or prosecute any alcohol or drug abuse patient.[facility] HospitalIn the event this information is protected by the Federal Confidentiality of Alcohol and Drug Abuse Patient Records regulations: The Federal rules restrict any use of the information to criminally investigate or prosecute any alcohol or drug abuse patient.[facility] HospitalIn the event this information is protected by the Federal Confidentiality of Alcohol and Drug Abuse Patient Records regulations: The Federal rules restrict any use of the information to criminally investigate or prosecute any alcohol or drug abuse patient.[facility] HospitalIn the event this information is protected by the Federal Confidentiality of Alcohol and Drug Abuse Patient Records regulations: The Federal rules restrict any use of the information to criminally investigate or prosecute any alcohol or drug abuse patient.[facility] HospitalIn the event this information is protected by the Federal Confidentiality of Alcohol and Drug Abuse Patient Records regulations: The Federal rules restrict any use of the information to criminally investigate or prosecute any alcohol or drug abuse patient.[facility] HospitalIn the event this information is protected by the Federal Confidentiality of Alcohol and Drug Abuse Patient Records regulations: The Federal rules restrict any use of the information to criminally investigate or prosecute any alcohol or drug abuse patient.[facility] HospitalIn the event this information is protected by the Federal Confidentiality of Alcohol and Drug Abuse Patient Records regulations: The Federal rules restrict any use of the information to criminally investigate or prosecute any alcohol or drug abuse patient.[facility] HospitalIn the event this information is protected by the Federal Confidentiality of Alcohol and Drug Abuse Patient Records regulations: The Federal rules restrict any use of the information to criminally investigate or prosecute any alcohol or drug abuse patient.[facility] HospitalIn the event this information is protected by the Federal Confidentiality of Alcohol and Drug Abuse Patient Records regulations: The Federal rules restrict any use of the information to criminally investigate or prosecute any alcohol or drug abuse patient.[facility] HospitalIn the event this information is protected by the Federal Confidentiality of Alcohol and Drug Abuse Patient Records regulations: The Federal rules restrict any use of the information to criminally investigate or prosecute any alcohol or drug abuse patient.[facility] HospitalIn the event this information is protected by the Federal Confidentiality of Alcohol and Drug Abuse Patient Records regulations: The Federal rules restrict any use of the information to criminally investigate or prosecute any alcohol or drug abuse patient.[facility] HospitalIn the event this information is protected by the Federal Confidentiality of Alcohol and Drug Abuse Patient Records regulations: The Federal rules restrict any use of the information to criminally investigate or prosecute any alcohol or drug abuse patient.[facility] HospitalIn the event this information is protected by the Federal Confidentiality of Alcohol and Drug Abuse Patient Records regulations: The Federal rules restrict any use of the information to criminally investigate or prosecute any alcohol or drug abuse patient.[facility] HospitalIn the event this information is protected by the Federal Confidentiality of Alcohol and Drug Abuse Patient Records regulations: The Federal rules restrict any use of the information to criminally investigate or prosecute any alcohol or drug abuse patient.[facility] HospitalIn the event this information is protected by the Federal Confidentiality of Alcohol and Drug Abuse Patient Records regulations: The Federal rules restrict any use of the information to criminally investigate or prosecute any alcohol or drug abuse patient.[facility] HospitalIn the event this information is protected by the Federal Confidentiality of Alcohol and Drug Abuse Patient Records regulations: The Federal rules restrict any use of the information to criminally investigate or prosecute any alcohol or drug abuse patient.[facility] HospitalIn the event this information is protected by the Federal Confidentiality of Alcohol and Drug Abuse Patient Records regulations: The Federal rules restrict any use of the information to criminally investigate or prosecute any alcohol or drug abuse patient.[facility] the event this information is protected by the Federal Confidentiality of Alcohol and Drug Abuse Patient Records regulations: The Federal rules restrict any use of the information to criminally investigate or prosecute any alcohol or drug abuse patient.[facility] Hospital[facility] the event this information is protected by the Federal Confidentiality of Alcohol and Drug Abuse Patient Records regulations: The Federal rules restrict any use of the information to criminally investigate or prosecute any alcohol or drug abuse patient.[facility] HospitalIn the event this information is protected by the Federal Confidentiality of Alcohol and Drug Abuse Patient Records regulations: The Federal rules restrict any use of the information to criminally investigate or prosecute any alcohol or drug abuse patient.[facility] HospitalIn the event this information is protected by the Federal Confidentiality of Alcohol and Drug Abuse Patient Records regulations: The Federal rules restrict any use of the information to criminally investigate or prosecute any alcohol or drug abuse patient.[facility] HospitalIn the event this information is protected by the Federal Confidentiality of Alcohol and Drug Abuse Patient Records regulations: The Federal rules restrict any use of the information to criminally investigate or prosecute any alcohol or drug abuse patient.[facility] HospitalIn the event this information is protected by the Federal Confidentiality of Alcohol and Drug Abuse Patient Records regulations: The Federal rules restrict any use of the information to criminally investigate or prosecute any alcohol or drug abuse patient.[facility] HospitalIn the event this information is protected by the Federal Confidentiality of Alcohol and Drug Abuse Patient Records regulations: The Federal rules restrict any use of the information to criminally investigate or prosecute any alcohol or drug abuse patient.[facility] HospitalIn the event this information is protected by the Federal Confidentiality of Alcohol and Drug Abuse Patient Records regulations: The Federal rules restrict any use of the information to criminally investigate or prosecute any alcohol or drug abuse patient.[facility] HospitalIn the event this information is protected by the Federal Confidentiality of Alcohol and Drug Abuse Patient Records regulations: The Federal rules restrict any use of the information to criminally investigate or prosecute any alcohol or drug abuse patient.[facility] HospitalIn the event this information is protected by the Federal Confidentiality of Alcohol and Drug Abuse Patient Records regulations: The Federal rules restrict any use of the information to criminally investigate or prosecute any alcohol or drug abuse patient.[facility] HospitalIn the event this information is protected by the Federal Confidentiality of Alcohol and Drug Abuse Patient Records regulations: The Federal rules restrict any use of the information to criminally investigate or prosecute any alcohol or drug abuse patient.[facility] HospitalIn the event this information is protected by the Federal Confidentiality of Alcohol and Drug Abuse Patient Records regulations: The Federal rules restrict any use of the information to criminally investigate or prosecute any alcohol or drug abuse patient.[facility] HospitalIn the event this information is protected by the Federal Confidentiality of Alcohol and Drug Abuse Patient Records regulations: The Federal rules restrict any use of the information to criminally investigate or prosecute any alcohol or drug abuse patient.[facility] HospitalIn the event this information is protected by the Federal Confidentiality of Alcohol and Drug Abuse Patient Records regulations: The Federal rules restrict any use of the information to criminally investigate or prosecute any alcohol or drug abuse patient.[facility] HospitalIn the event this information is protected by the Federal Confidentiality of Alcohol and Drug Abuse Patient Records regulations: The Federal rules restrict any use of the information to criminally investigate or prosecute any alcohol or drug abuse patient.[facility] HospitalIn the event this information is protected by the Federal Confidentiality of Alcohol and Drug Abuse Patient Records regulations: The Federal rules restrict any use of the information to criminally investigate or prosecute any alcohol or drug abuse patient.[facility] HospitalIn the event this information is protected by the Federal Confidentiality of Alcohol and Drug Abuse Patient Records regulations: The Federal rules restrict any use of the information to criminally investigate or prosecute any alcohol or drug abuse patient.[facility] HospitalIn the event this information is protected by the Federal Confidentiality of Alcohol and Drug Abuse Patient Records regulations: The Federal rules restrict any use of the information to criminally investigate or prosecute any alcohol or drug abuse patient.[facility] HospitalIn the event this information is protected by the Federal Confidentiality of Alcohol and Drug Abuse Patient Records regulations: The Federal rules restrict any use of the information to criminally investigate or prosecute any alcohol or drug abuse patient.[facility] Reason for Visit (unrecogniz ed section and [...] Reason Comments Orders Reason Onset Date Comments Chief Of Safety And Protection - Other 10/27/2022 P2P w/L H 11/01/ @10am Reason Comments Future Appointment Reason Onset Date Comments Refill Request 11/16/2022 Reason Comments Missed Appointment Reason Comments No Show Reason Comments Schedule Surgery Reason Comments [facility] Neu[facility] - Medication Refill Zeposi a Reason Onset Date Comments [facility] Neurology - Medication Refill 03/12/2023 Zeposia Reason Comments lab orders to [facility] CALL PATIENT WHE N SENT Reason [...] while at eye doctor, given 324 aspirin SERVICES 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 Reason Comments Med Change Request Reason Onset [...] MRI Specialty Diagnoses / Procedures Referred By Contac t Referred To Contact MR IMAGING Diagnoses Multiple sclerosis (HCC) Procedures MRI CERVICAL SPINE WO/W IVCON MRI SPINAL CANAL CERVICAL W/O & W/CONTR LCL Raymond Kemp, SCABBLER.MAID HOUSEKEEPER [address] [place] [id number] Mr Imaging [id number] Referral ID Status Reason Start Date Expiration Date V isits Requested Visits Authorized [id number] Closed Auto-Generate d Referral 05/08/2024 06/07/2025 1 1 Reason Comments Uterine Fibroids Specialty Diagnoses / Procedures Referred By Contac t Referred To Contact Diagnoses PMB (postmenopausal bleeding) Procedures CONSULT TO MINIMALLY INVASIVE GYNECOLOGIC SURGERY OFFICE/OUTPATIENT [facility] 60 MINUTES Sal Malloy MD [address] [place] [address] Referral ID Status Reason Start Date Expiration Date V isits Requested Visits Authorized [id number] Closed PCP Requested Referral Auto-Generated Referral 02/14/2024 [...] unspecified (HCC) Dyspnea, unspecified Procedures NA [employer] [place] [employer] [place] [address] Phone: tel: [employer] [place] [address] Phone: tel: Referral ID Status Reason Start Date Expiration Date Visits Re quested Visits Authorized [id number] 3 3 Specialty Diagnoses / Procedures Referred By Adam garvey Referred To Contact MR IMAGING Diagnoses Multiple sclerosis (HCC) Encounter for medication monitoring Procedures MRI BRAIN WO/W IVCON MRI BRAIN BRAIN STEM W/O W/CONTRAST MATERIAL Raymond Kemp, MARINO.MAID HOUSEKEEPER [address] [place] [phone] Mr Imaging [place] [address] Referral ID Status Reason Start Date Expiration Date V isits Requested Visits Authorized [id number] Closed Auto-Generate d Referral 08/01/2024 03/01/2025 1 1 Reason Onset Date Comments [facility]PP Neurology - Medication Refill 08/04/2024 Zeposia Reason Onset Date Comments [facility]PP Neurology - Medication Refill 08/28/2024 Zeposia Reason Comments Letter Reason Onset Date Comments Refill Request 09/25/2024 Reason Onset Date Comments [facility]PP Neurology - Medication Refill 09/30/2024 Zeposia Reason Comments Established Patient Follow-Up MS Reason Comments Patient Update Patient Question Care Teams (unrecognized sec tion and content) Team Status: Active Member Role Status Dates Rina Reardon DO Primary Care Provider Active Team Status: Inactive Member Role Status Dates Rina Reardon , Primary Care Provider Active Jaswant Freitas , DO Emergency Provider Active Ux Manager Relationship Specialty Start Date End Date Rina Reardon DO PCP - General Family Practice 02/28/21 Robe Mckeon [address] [place] [address] Referring Family Practice 10/23/19 Rina Reardon, DO [address] [place] [address] Referring Family Practice 07/13/21 Ux Manager Relationship Specialty Start Date End Date Rina Reardon DO PCP - General Family Practice 02/28/21 Robe Mckeon [address] [place] [address] Referring Family Practice 10/23/19 Rina Reardon, DO [address] [place] [address] Referring Family Practice 07/13/21 Ux Manager Relationship Specialty Start Date End Date Rina Reardon DO PCP - General Family Practice 02/28/21 Robe Mckeon [address] [place] [address] Referring Family Practice 10/23/19 Rina Reardon, DO [address] [place] [address] Referring Family Practice 07/13/21 Ux Manager Relationship Specialty Start Date End Date Rina Reardon, DO PCP - General Family Practice 02/28/21 Robe Mckeon [address] [place] [address] Referring Family Practice 10/23/19 Rina Reardon, DO [address] [place] [address] Referring Family Practice 07/13/21 Ux Manager Relationship Specialty Start Date End Date Rina Reardon, DO PCP - General Family Practice 02/28/21 Robe Mckeon [address] [place] [address] Referring Family Practice 10/23/19 Rina Reardon, DO [address] [place] [address] Referring Family Practice 07/13/21 Ux Manager Relationship Specialty Start Date End Date Rina Reardon, DO PCP - General Family Practice 02/28/21 Robe [address]keon [address] [place] [address] Referring Family Practice 10/23/19 Rina Reardon, DO [address] [place] [address] Referring Family Practice 07/13/21 Ux Manager Relationship Specialty Start Date End Date Rina Reardon, DO PCP - General Family Practice 02/28/21 Robe Mckeon [address] [place] [address] Referring Family Practice 10/23/19 Rina Reardon, DO [address] [place] [address] Referring Family Practice 07/13/21 Ux Manager Relationship Specialty Start Date End Date Rina Reardon, DO PCP - General Family Practice 02/28/21 Robe Mckeon [address] [place] [address] Referring Family Practice 10/23/19 Rina Reardon, DO [address] [facility] [place] [address] Referring Family Practice 07/13/21 Ux Manager Relationship Specialty Start Date End Date Rina Reardon DO PCP - General Family Medicine 02/28/21 Robe Mckeon [address] [place] [address] Referring Family Medicine 10/23/19 Rina Reardon, DO [address] [place] [address] Referring Family Medicine 07/13/21 Ux Manager Relationship Specialty Start Date End Date Rina Reardon, DO PCP - General Family Medicine 02/28/21 Robe Mckeon [address] [place] [address] Referring Family Medicine 10/23/19 Rina Reardon, DO [address] [place] [address] Referring Family Medicine 07/13/21 Ux Manager Relationship Specialty Start Date End Date Rina Reardon, DO PCP - General Family Medicine 02/28/21 Robe Mckeon [address] [place] [address] Referring Family Medicine 10/23/19 Rina Reardon, DO [address] [place] [address] Referring Family Medicine 07/13/21 Ux Manager Relationship Specialty Start Date End Date Rina Reardon, DO [address] [place] [address] PCP - General Family Medicine 02/28/21 Robe Mckeon [address] [place] [address] Referring Family Medicine 10/23/19 Rina Reardon, DO [address] [place] [address] Referring Family Medicine 07/13/21 Ux Manager Relationship Specialty Start Date End Date Rina Reardon, DO [address] [place] [address] PCP - General Family Medicine 02/28/21 Robe Mckeon [address] [place] [address] Referring Family Medicine 10/23/19 Rina Reardon, DO [address] [place] [address] Referring Family Medicine 07/13/21 Ux Manager Relationship Specialty Start Date End Date Rina Reardon, DO [address] [place] [address] PCP - General Family Medicine 02/28/21 Robe Mckeon [address] [place] [address] Referring Family Medicine 10/23/19 Rina Reardon, DO [address] [place] [address] Referring Family Medicine 07/13/21 Ux Manager Relationship Specialty Start Date End Date Rina Reardon, DO [address] [place] [address] PCP - General Family Medicine 02/28/21 Robe Mckeon [address] [place] [address] Referring Family Medicine 10/23/19 Rina Reardon, DO [address] [place] [address] Referring Family Medicine 07/13/21 Ux Manager Relationship Specialty Start Date End Date Rina Reardon, DO [address] [place] [address] PCP - General Family Medicine 02/28/21 Robe Mckeon [address] [place] [address] Referring Family Medicine 10/23/19 Rina Reardon, DO [address] [place] [address] Referring Family Medicine 07/13/21 Team Status: Inactive Member Role Status Dates Rina Reardon DO Primary Care Provider, Attendi ng Provider Active Team Status: Active Member Role Status Dates [facility] Primary Care Provider Active Collins Adams MD Active REAL Narayanan Referring Provider Active Ellen Gonzáles APRN Attending Provider Active Ux Manager Relationship Specialty Start Date End Date Rina Reardon DO [address] [place] [address] PCP - General Family Medicine 02/28/21 Robe Mckeon [address] [place] [address] Referring Family Medicine 10/23/19 Rina Reardon, DO [address] [place] [address] Referring Family Medicine 07/13/21 Ux Manager Relationship Specialty Start Date End Date Rina Reardon DO [address] [place] [address] PCP - General Family Medicine 02/28/21 Robe Mckeon [address] [place] [address] Referring Family Medicine 10/23/19 Rina Reardon, DO [address] [place] [address] Referring Family Medicine 07/13/21 Ux Manager Relationship Specialty Start Date End Date Rina Reardon DO [address] [place] [address] PCP - General Family Medicine 02/28/21 Robe Mckeon [address] [place] [address] Referring Family Medicine 10/23/19 Rina Reardon, DO [address] [place] [address] Referring Family Medicine 07/13/21 Ux Manager Relationship Specialty Start Date End Date Rina Reardon, DO [address] [place] [address] PCP - General Family Medicine 02/28/21 Robe Mckeon [address] [place] [address] Referring Family Medicine 10/23/19 Rina Reardon, DO [address] [place] [address] Referring Family Medicine 07/13/21 Ux Manager Relationship Specialty Start Date End Date Rina Reardon, DO [address] [place] [address] PCP - General Family Medicine 02/28/21 Robe Mckeon [address] [place] [address] Referring Family Medicine 10/23/19 Rina Reardon, DO [address] [place] [address] Referring Family Medicine 07/13/21 Ux Manager Relationship Specialty Start Date End Date Rina Reardon, DO [address] [place] [address] PCP - General Family Medicine 02/28/21 Robe Mckeon [address] [place] [address] Referring Family Medicine 10/23/19 Rina Reardon DO [address] [place] [address] Referring Family Medicine 07/13/21 Ux Manager Relationship Specialty Start Date End Date Rina Reardon DO [address] [place] [address] PCP - General Family Medicine 02/28/21 Robe Mckeon [address] [place] [address] Referring Family Medicine 10/23/19 Rina Reardon DO [address] [place] [address] Referring Family Medicine 07/13/21 Ux Manager Relationship Specialty Start Date End Date EllelulyRina DO [address] [place] [address] PCP - General Family Medicine 02/28/21 Robe Mckeon [address] [place] [address] Referring Family Medicine 10/23/19 Rina Reardon DO [address] [place] [address] Referring Family Medicine 07/13/21 Ux Manager Relationship Specialty Start Date End Date Sandro Burgos MD [address] [place] [address] PCP - General Internal Medicine 04/18/23 Robe Mckeon [address] [place] [address] Referring Family Medicine 10/23/19 Rina Reardon DO [address] [place] [address] Referring Family Medicine 07/13/21 Ux Manager Relationship Specialty Start Date End Date Sandro Burgos MD [address] [place] [address] PCP - General Internal Medicine 04/18/23 Robe Mckeon [address] [place] [address] Referring Family Medicine 10/23/19 Rina Reardon DO [address] [place] [address] Referring Family Medicine 07/13/21 Ux Manager Relationship Specialty Start Date End Date Sandro Burgos MD [address] [place] [address] PCP - General Internal Medicine 04/18/23 Robe Mckeon [address] [place] [address] Referring Family Medicine 10/23/19 Rina Reardon DO [address] [place] [address] Referring Family Medicine 07/13/21 Ux Manager Relationship Specialty Start Date End Date Sandro Burgos MD [address] [place] [address] PCP - General Internal Medicine 04/18/23 Robe Mckeon [address] [place] [address] Referring Family Medicine 10/23/19 Rina Reardon DO [address] [place] [address] Referring Family Medicine 07/13/21 Ux Manager Relationship Specialty Start Date End Date Sandro Burgos MD [address] [place] [address] PCP - General Internal Medicine 04/18/23 Robe Mckeon NP [address] [place] [address] Referring Family Medicine 10/23/19 Rina Reardon DO [address] [facility] [place] [address] Referring Family Medicine 07/13/21 Ux Manager Relationship Specialty Start Date End Date Sandro Burgos MD [address] [place] [address] PCP - General Internal Medicine 04/18/23 Robe Mckeon NP [address] [place] [address] Referring Family Medicine 10/23/19 Rina Reardon DO [address] [place] [address] Referring Family Medicine 07/13/21 Ux Manager Relationship Specialty Start Date End Date Sandro Burgos MD [facility] [place] [address] PCP - General Internal Medicine 04/18/23 Robe Mckeon NP [address] [place] [id number] Referring Family Medicine 10/23/19 Rina Reardon DO [address] [facility] [address] [place] [id number] Referring Family Medicine 07/13/21 Ux Manager Relationship Specialty Start Date End Date Sandro Burgos MD [address] [place] [address] PCP - General Internal Medicine 04/18/23 Robe Mckeon NP [address] [place] [address] Referring Family Medicine 10/23/19 Rina Reardon DO [address] [place] [address] Referring Family Medicine 07/13/21 Team Status: Inactive Member Role Status Dates Rina Reardon DO Primary Care Provider Active Sandro Hinojosa MD Attending Provider Act dakota Ux Manager Relationship Specialty Start Date End Date Sandro Burgos MD [address] [place] [address] PCP - General Internal Medicine 04/18/23 Robe Mckeon NP [address] [place] [address] Referring Family Medicine 10/23/19 Rina Reardon DO [address] [place] [address] Referring Family Medicine 07/13/21 Ux Manager Relationship Specialty Start Date End Date Sandro Burgos MD [address] [place] [address] PCP - General Internal Medicine 04/18/23 Robe Mckeon NP [address] [place] [address] Referring Family Medicine 10/23/19 Rina Reardon DO [address] [place] [address] Referring Family Medicine 07/13/21 Ux Manager Relationship Specialty Start Date End Date Sandro Burgos MD [address] [place] [address] PCP - General Internal Medicine 04/18/23 Robe Mckeon NP [address] [place] [address] Referring Family Medicine 10/23/19 Rina Reardon DO [address] [place] [address] Referring Family Medicine 07/13/21 Ux Manager Relationship Specialty Start Date End Date Sandro Burgos MD [address] [place] [address] PCP - General Internal Medicine 04/18/23 Robe Mckeon NP [address] [place] [address] Referring Family Medicine 10/23/19 Rina Reardon DO [address] [place] [address] Referring Family Medicine 07/13/21 Ux Manager Relationship Specialty Start Date End Date Sandro Burgos MD [address] [place] [address] PCP - General Internal Medicine 04/18/23 Robe Mckeon ACTIVITIES MANAGER [address] [place] [address] Referring Family Medicine 10/23/19 Rina Reardon DO [address] [place] [address] Referring Family Medicine 07/13/21 Ux Manager Relationship Specialty Start Date End Date Sandro Burgos MD [address] [place] [address] PCP - General Internal Medicine 04/18/23 Robe Mckeon NP [address] [place] [address] Referring Family Medicine 10/23/19 Rina Reardon DO [address] [place] [address] Referring Family Medicine 07/13/21 Ux Manager Relationship Specialty Start Date End Date Sandro Burgos MD [address] [place] [address] PCP - General Internal Medicine 04/18/23 Robe Mckeon NP [address] [place] [address] Referring Family Medicine 10/23/19 Rina Reardon DO [address] [place] [address] Referring Family Medicine 07/13/21 Ux Manager Relationship Specialty Start Date End Date Sandro Burgos MD [address] [place] [address] PCP - General Internal Medicine 04/18/23 Robe Mckeon NP [address] [place] [address] Referring Family Medicine 10/23/19 Rina Reardon DO [address] [place] [address] Referring Family Medicine 07/13/21 Ux Manager Relationship Specialty Start Date End Date Sandro Burgos MD [address] [place] [address] PCP - General Internal Medicine 04/18/23 Robe Mckeon NP [address] [place] [address] Referring Family Medicine 10/23/19 Rina Reardon DO [address] [place] [address] Referring Family Medicine 07/13/21 Ux Manager Relationship Specialty Start Date End Date Sandro Burgos MD [address] [place] [address] PCP - General Internal Medicine 04/18/23 Robe Mckeon NP [address] [place] [address] Referring Family Medicine 10/23/19 Rina Reardon DO [address] [place] [address] Referring Family Medicine 07/13/21 Ux Manager Relationship Specialty Start Date End Date Sandro Burgos MD [address] [place] [address] PCP - General Internal Medicine 04/18/23 Robe Mckeon NP [address] [place] [address] Referring Family Medicine 10/23/19 Rina Reardon DO [address] [place] [address] Referring Family Medicine 07/13/21 Ux Manager Relationship Specialty Start Date End Date Sandro Burgos MD [address] [place] [address] PCP - General Internal Medicine 04/18/23 Robe Mckeon NP [address] [place] [address] Referring Family Medicine 10/23/19 Rina Reardon DO [address] [place] [address] Referring Family Medicine 07/13/21 Ux Manager Relationship Specialty Start Date End Date Sandro Burgos MD [address] [place] [address] PCP - General Internal Medicine 04/18/23 Robe Mckeon NP [address] [place] [address] Referring Family Medicine 10/23/19 Rina Reardon DO [address] [place] [address] Referring Family Medicine 07/13/21 Team Status: Active Member Role Status Dates PHYSICIAN NO FAMILY Primary Care Provider Active Team Status: Inactive Member Role Status Dates PHYSICIAN NO FAMILY Primary Care Provider Active Start: February 15, 2024 End: February 15, 2024 ROBERT McfaddenC Attending Provider Active Start: February 15, 2024 End: February 15, 2024 Ux Manager Relationship Specialty Start Date End Date Sadnro Burgos MD [address] [place] [address] PCP - General Internal Medicine 04/18/23 Robe Mckeon NP [address] [place] [address] Referring Family Medicine 10/23/19 Rina Reardon DO [address] [place] [address] Referring Family Medicine 07/13/21 Ux Manager Relationship Specialty [place] [address] [place] [address] PCP - General Internal Medicine 04/18/23 Robe Mckeon NP [address] [place] [address] Referring Family Medicine 10/23/19 Rina Reardon DO [address] [place] [address] Referring Family Medicine 07/13/21 [facility] Ux Manager Relationship Specialty Start Date End Date Sandro Burgos MD [address] [place] [address] PCP - General Internal Medicine 04/18/23 Robe Mckeon NP [address] [place] [address] Referring Family Medicine 10/23/19 Rina Reardon DO [address] [place] [address] Referring Family Medicine 07/13/21 Paulo Corey, [facility] 03/17/24 Ux Manager Relationship Specialty Start Date End Date Sandro Burgos MD [address] [place] [address] PCP - General Internal Medicine 04/18/23 Robe Mckeon NP [address] [place] [address] Referring Family Medicine 10/23/19 Rina Reardon DO [address] [place] [address] Referring Family Medicine 07/13/21 Paulo Corey [facility] 03/17/24 Ux Manager Relationship Specialty [place] [address] [place] [address] PCP - General Internal Medicine 04/18/23 Robe Mckeon NP [address] [place] [address] Referring Family Medicine 10/23/19 Rina Reardon DO [address] [place] [place] [address] Referring Family Medicine 07/13/21 Paulo Corey [facility] 03/17/24 Ux Manager Relationship Specialty Start Date End Date Sandro Burgos MD [address] [place] [address] PCP - General Internal Medicine 04/18/23 Robe Mckeon NP [address] [place] [address] Referring Family Medicine 10/23/19 Rina Reardon DO [address] [place] [address] Referring Family Medicine 07/13/21 [facility]17[facility] Ux Manager Relationship Specialty Start Date End Date Sandro Burgos MD [address] [place] [address] PCP - General Internal Medicine 04/18/23 Rboe Mckeon NP [address] [place] [address] Referring Family Medicine 10/23/19 Rina Reardon DO [address] [place] [place] [address] Referring Family Medicine 07/13/21 [facility]/17[facility]24 Ux Manager Relationship Specialty Start Date End Date Sandro Burgos MD [address] [place] [address] PCP - General Internal Medicine 04/18/23 Robe Mckeon NP [address] [place] [address] Referring Family Medicine 10/23/19 Rina Reardon DO [address] [place] [address] Referring Family Medicine 07/13/21 Paulo Corey [facility] 03/17/24 Ux Manager Relationship Specialty Start Date End Date Sandro Burgos MD [address] [place] [address] PCP - General Internal Medicine 04/18/23 Robe Mckeon NP [address] [place] [address] Referring Family Medicine 10/23/19 Rina Reardon DO [address] [place] [address] Referring Family Medicine 07/13/21 Paulo Corey [facility] 03/17/24 Ux Manager Relationship Specialty Start Date End Date Sandro Burgos MD [address] [place] [address] PCP - General Internal Medicine 04/18/23 Robe Mckeon NP [address] [place] [address] Referring Family Medicine 10/23/19 Rina Reardon DO [address] [place] [address] Referring Family Medicine 07/13/21 Paulo Corey [facility] 03/17/24 Ux Manager Relationship Specialty Start Date End Date Sandro Burgos MD [address] [place] [address] PCP - General Internal Medicine 04/18/23 Robe Mckeon NP [address] [place] [address] Referring Family Medicine 10/23/19 Rina Reardon DO [address] [place] [address] Referring Family Medicine 07/13/21 [facility] 03/17/24 Ux Manager Relationship Specialty Start Date End Date Sandro Burgos MD [address] [place] [address] PCP - General Internal Medicine 04/18/23 Robe Mckeon NP [address] [place] [address] Referring Family Medicine 10/23/19 Rina Reardon DO [address] [place] [address] Referring Family Medicine 07/13/21 [facility] 03/17/24 Ux Manager Relationship Specialty Start Date End Date Sandro Burgos MD [address] [place] [address] PCP - General Internal Medicine 04/18/23 Robe Mckeon NP [address] [place] [address] Referring Family Medicine 10/23/19 Rina Reardon DO [address] [place] [address] Referring Family Medicine 07/13/21 Paulo Corey [facility] 03/17/24 Ux Manager Relationship Specialty Start Date End Date Sandro Burgos MD [address] [place] [address] PCP - General Internal Medicine 04/18/23 Robe Mckeon NP [address] [place] [address] Referring Family Medicine 10/23/19 Rina Reardon DO [address] [place] [address] Referring Family Medicine 07/13/21 Paulo Corey [facility] 03/17/24 Ux Manager Relationship Specialty Start Date End Date Sandro Burgos MD [address] [place] [address] PCP - General Internal Medicine 04/18/23 Robe Mckeon NP [address] [place] [address] Referring Family Medicine 10/23/19 Rina Reardon DO [address] [place] [address] Referring Family Medicine 07/13/21 Paulo Corey [facility] 03/17/24 Alpa Kelly APRN.MAID HOUSEKEEPER [address] [facility] [place] [place] [address] Student Services Dean Internal Medicine 07/13/24 Ciera Juarez APRN.MAID HOUSEKEEPER [address] [facility] [place] [address] Student Services Dean Internal Medicine 07/15/24 Ux Manager Relationship Specialty Start Date End Date Sandro Burgos MD [address] [place] [address] PCP - General Internal Medicine 04/18/23 Robe Mckeon NP [facility] [place] [address] Referring Family Medicine 10/23/19 Rina Reardon DO [address] [place] [address] Referring Family Medicine 07/13/21 [facility] 03/17/24 Alpa Kelly APRN.MAID HOUSEKEEPER [address] [facility] [place] [place] [address] Student Services Dean Internal Medicine 07/13/24 Ciera Juarez SCABBLER.MAID HOUSEKEEPER [address] [facility] [place] [address] Student Services Dean Internal Medicine 07/15/24 Ux Manager Relationship Specialty Start Date End Date Sandro Burgos MD [address] [facility] [place] [address] PCP - General Internal Medicine 04/18/23 Robe Mckeon NP [address] [place] [address] Referring Family Medicine 10/23/19 Rina Reardon DO [address] [place] [address] Referring Family Medicine 07/13/21 [facility] 03/17/24 Alpa Kelly APRN.MAID HOUSEKEEPER [address] [place], [place] [id number] Student Services Dean Internal Medicine 07/13/24 Ciera Juarez APRN.MAID HOUSEKEEPER [address] [place] [address] Student Services Dean Internal [facility] 07/15/24 Ux Manager Relationship Specialty Start Date End Date Sandro Burgos MD [address] [place] [address] PCP - General Internal Medicine 04/18/23 Robe Mckeon NP [address] [place] [address] Referring Family Medicine 10/23/19 Rina Reardon DO [address] [place] [address] Referring Family Medicine 07/13/21 [facility] 03/17/24 Alpa Kelly, MARINO.MAID HOUSEKEEPER [address] [place], [place] [id number] Student Services Dean Internal Medicine 07/13/24 Ciera Juarez SCABBLER.MAID HOUSEKEEPER [address] [facility] [place] [address] Student Services Dean Internal Medicine 07/15/24 Ux Manager Relationship Specialty Start Date End Date Sandro Burgos MD [address] [place] [address] PCP - General Internal Medicine 04/18/23 Robe Mckeon NP [address] [place] [address] Referring Family Medicine 10/23/19 Rina Reardon DO [address] [facility] [place] [address] Referring Family Medicine 07/13/21 Paulo Corey [facility] 03/17/24 Alpa Kelly APRN.MAID HOUSEKEEPER [address] [facility] [place] [address] Student Services Dean Internal Medicine 07/13/24 Ciera Juarez, SCABBLER.MAID HOUSEKEEPER [address] [facility] [place] [address] Student Services Dean Internal Medicine 07/15/24 Ux Manager Relationship Specialty Start Date End Date Sandro Burgos MD [address] [place] [address] PCP - General Internal Medicine 04/18/23 Robe Mckeon NP [address] [place] [address] Referring Family Medicine 10/23/19 Rina Reardon DO [address] [place] [address] Referring Family Medicine 07/13/21 [facility] 03/17/24 Alpa Kelly APRN.MAID HOUSEKEEPER [address] [facility] [place] [address] Student Services Dean Internal Medicine 07/13/24 Ciera Juarez APRN.MAID HOUSEKEEPER [address] [facility] [place] [place] [id number] Student Services Dean Internal Medicine 07/15/24 Ux Manager Relationship Specialty Start Date End Date Sandro Burgos MD [address] [facility] [place] [address] PCP - General Internal Medicine 04/18/23 Robe Mckeon NP [facility] [place] [address] Referring Family Medicine 10/23/19 Rina Reardon DO [address] [place] [address] Referring Family Medicine 07/13/21 [facility] 03/17/24 Alpa Kelly APRN.MAID HOUSEKEEPER [address] [facility] [place] [address] Student Services Dean Internal Medicine 07/13/24 Ciera Juarez SCABBLER.MAID HOUSEKEEPER [address] [facility] [place] [address] Student Services Dean Internal Medicine 07/15/24 Ux Manager Relationship Specialty Start Date End Date Sandro Burgos MD [address] [place] [address] PCP - General Internal Medicine 04/18/23 Robe Mckeon NP [address] [place] [address] Referring Family Medicine 10/23/19 Rina Reardon DO [address] [place] [address] Referring Family Medicine 07/13/21 Paulo Corey [facility] 03/17/24 Alpa Kelly APRN.MAID HOUSEKEEPER [address] [place] [address] Student Services Dean Internal Medicine 07/13/24 Ciera Juarez APRN.MAID HOUSEKEEPER [address] [place], [place] [address] [address] Student Services Dean Internal Medicine 07/15/24 Ux Manager Relationship Specialty Start Date End Date Sandro Burgos MD [address] [place] [address] PCP - General Internal Medicine 04/18/23 Robe Mckeon NP [address] [place] [address] Referring Family Medicine 10/23/19 Rina Reardon DO [address] [place] [address] Referring Family Medicine 07/13/21 Paulo Corey [facility] 03/17/24 Alpa Kelly APRN.MAID HOUSEKEEPER [address] [facility] [place] [address] Student Services Dean Internal Medicine 07/13/24 Ciera Juarez APRN.MAID HOUSEKEEPER [address] [facility] [place] [address] [facility] Internal Medicine 07/15/24 Ux Manager Relationship Specialty Start Date End Date Sandro Burgos MD [address] [facility] [place] [address] PCP - General Internal Medicine 04/18/23 Robe Mckeon NP [address] [place] [address] Referring Family Medicine 10/23/19 Rina Reardon DO [address] [place] [address] Referring Family Medicine 07/13/21 Paulo Corey [facility] 03/17/24 Alpa Kelly APRN.MAID HOUSEKEEPER [address] [facility] [place] [address] Student Services Dean Internal Medicine 07/13/24 Ciera Juarez APRN.MAID HOUSEKEEPER [address] [facility] [place] [address] [facility] Internal Medicine 07/15/24 Goals (unrecognized section and [...] RN)1654 (Given - Provider: Nidhi Del Cid RN)2224 (Given - Provider: Jaswant Tavarez RN) 0428 (Given - Provider: Jaswant Tavarez RN)1000 (Due)1600 (Due)2200 (Due) atorvastatin (LIPITOR) tablet 20 mg, Oral, DAILY, First dose on Sun07/07/24 at 1717, Until Discontinued 0858 (Given - Provider: Tova Mac RN) 0949 (Given - Provider: Nidhi Del Cid RN) 0842 (Given - Provider: Nidhi Del Cid, SARAH) baclofen (LIORESAL) 20 MG tablet 20 mg, [...] dose on Sun07/07/24 at 2200, Until Discontinued 0006 (Given - Provider: Allyn Mariano RN)2104 (Given - Provider: Allyn Mariano RN) 2224 (Given - Provider: Jaswant Tavarez RN) 2200 (Due) DULoxetine (CYMBALTA) capsule 60 mg, Oral, AT BEDTIME, First dose on Sun07/07/24 at 2200, Until Discontinued 0006 (Given - Provider: Allyn Mariano RN)210 (Given - Provider: Allyn Mariano RN) 222 (Given - Provider: Jaswant Tavarez RN) 2200 [...] Discontinued 0858 (Given - Provider: Tova Mac RN)2103 (Given - Provider: Allyn Mariano RN) 0949 (Given - Provider: Nidhi Del Cid RN)222 (Hold/Not Given - Provider: Jaswant Tavarez RN - Reason: Patient refused) 0842 (Given - Provider: Nidhi Del Cid RN)2100 (Due) lidocaine (LIDODERM) 4 % patch (CANCELED) 1 Patch, Transdermal, EVERY 24 HOURS, First dose on Sun07/08/24 at 1000, Until Discontinued 1124 (Patch Applied - Provider: Tova Mac RN)1715 (Patch Removal - Provider: Tova Mac RN - Comment: Time automatically adjusted from order being discontinued) lidocaine (LIDODERM) 4 % patch 2 Patch, Transdermal, EVERY 24 HOURS, First dose on Sun07/10/24 at 0900, Until Discontinued 0842 (Patch Applied - Provider: Nidhi Del iCd RN)2041 (Due: Patch Removal - Provider: Nidhi Del [...] RN) 0842 (Given - Provider: Nidhi Del Cid, SARAH)2100 (Due) PRN Medication Order 07/08/2024 07/09/2024 07/10/2024 acetaminophen (TYLENOL) tablet (CANCELED) 500 mg, Oral, EVERY 8 HOURS PRN, Starting on Sun07/07/24 at 1646, Until Sun07/09/24 at 0912, Mild Pain (pain score 1,2,3), Moderate Pain (pain score 4,5,6), Severe Pain (pain score 7,8,9,10) 0858 (Given - Provider: Tova Mac RN) BIOTENE MOISTURIZING MOUTH spray SOLN 1 [place], Topical, EVERY 4 HOURS PRN, Starting on [...] BE BASED ON THE PRIMARY CLINICAL RECORDS. [facility] [employer] [facility]. provides no warranty or guarantee of the accuracy or completeness of information in this document.
[2024-10-19] MEDS: KETOROLAC TROMETHAMINE 60 MG/2 ML VIAL IM (10:16)
[2024-10-19] MEDS: ORPHENADRINE 60 MG/ 2 ML VIAL IM (10:16)
--- NOTE | 2024-10-19 12:12 | ED.GENADUL1 ---
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, the patient emotional when speaking, she did mention that she have MS and she have the MS flareup by stress, and she is having a lot of stress from the class Patient denies any chest pain, she mentioned that she have generalized body ache Related Data Home Medications ?Medication ?Instructions ?Recorded ?Confirmed atorvastatin 20 mg tablet 20 mg PO .QHS 08/29/24 09/23/24 baclofen 20 mg tablet 20 mg PO BID 08/29/24 09/23/24 duloxetine 30 mg capsule,delayed 60 mg PO .QHS 08/29/24 09/23/24 release ergocalciferol (vitamin D2) 1,250 50,000 unit PO QWEEK 08/29/24 09/23/24 mcg (50,000 unit) capsule pregabalin 300 mg capsule 300 mg PO BID 08/29/24 09/23/24 ketorolac 10 mg tablet 10 mg PO Q6H PRN pain 09/23/24 09/23/24 lidocaine 5 % topical patch 1 patch topical Q24H 09/23/24 09/23/24 ozanimod 0.92 mg capsule (Zeposia) 0.92 mg PO DAILY 09/23/24 09/23/24 Previous Rx's ?Medication ?Instructions ?Recorded diclofenac sodium 75 mg 75 mg PO BID PRN pain #14 tabs 09/13/24 tablet,delayed release Allergies Allergy/AdvReac Type Severity Reaction Status Date / Time ibuprofen Allergy Mild Rash Verified 10/19/24 09:38 tramadol AdvReac Severe Nausea Verified 10/19/24 09:41 Opioid HPI Opioid Management Most Recent Opioid Data: Last Pain Scale 10 09/13/24 07:42 09/13/24 Review of Systems ROS Status of ROS 10 or more systems reviewed and unremarkable except as noted in history and below PFSH PFSH Social History Little interest or pleasure in doing things: not at all Feeling down, depressed, or hopeless: not at all Exam Narrative Exam Narrative: Nurses notes and vital signs reviewed and patient is not hypoxic. General: Well-appearing and in no apparent distress. Skin: Warm, dry, no pallor noted. No rash. Head: Normocephalic, atraumatic. Neck: Supple, non-tender. Eye: Pupils are equal, round and EOMI. No scleral icterus. Ears, Nose, Mouth, and Throat: TM are clear, no nasal mucosal hypertrophy. Oral mucosa is moist, no posterior oropharynx erythema, uvula is mid-line Cardiovascular: Regular Rate and Rhythm without murmur, gallop or rub. Respiratory: No accessory muscle use or respiratory distress. Lungs are clear to auscultation, no wheezing, rales or rhonchi Chest Wall: no tenderness Back: No midline thoracic or lumbar vertebral tenderness. No CVA tenderness Musculoskeletal: normal ROM, no calf or popliteal tenderness, no lower extremity edema/swelling GI: Abdomen is soft, non-distended. Normal bowel sounds. No masses appreciated. No tenderness to palpation. No rebound, guarding, or rigidity noted. Neurological: A&O x4. No cranial nerve dysfunction observed. Constitutional Vital Signs, click to edit/add: Last Vital Signs Temp 98.2 F 10/19/24 09:38 Pulse 68 10/19/24 09:38 Resp 24 H 10/19/24 09:38 BP 151/88 H 10/19/24 09:38 Pulse Ox 100 10/19/24 09:38 O2 Del Method Room Air 10/19/24 09:38 Course Vital Signs Vital signs: Vital Signs Temperature 98.2 F 10/19/24 09:38 Pulse Rate 68 10/19/24 09:38 Respiratory Rate 24 H 10/19/24 09:38 Blood Pressure 151/88 H 10/19/24 09:38 Pulse Oximetry 100 10/19/24 09:38 Oxygen Delivery Method Room Air 10/19/24 09:38 Temperature 98.2 F 10/19/24 09:38 Pulse Rate 68 10/19/24 09:38 Respiratory Rate 24 H 10/19/24 09:38 Blood Pressure 151/88 H 10/19/24 09:38 Pulse Oximetry 100 10/19/24 09:38 Oxygen Delivery Method Room Air 10/19/24 09:38 Medical Decision Making MDM Narrative Medical decision making narrative: After speaking with the patient in details the patient mentioned that she is here because of the stress that this school causing her, she mentioned that she think the stress causing her MS to flareup The patient was offered a Toradol shot that usually what she takes to help and she also was provided with a Norflex here in the ER The patient also was given a school excuse for the next 3 days to rest from school The patient is to follow up with primary care physician in next 2-3 days or to return to the emergency department should any of the signs or symptoms worsen or new symptoms develop. The patient agrees with the following Diagnosis and Treatment plan and the patient will be discharged home. Discharge Plan Discharge Chief Complaint: Weakness Clinical Impression: Body aches Patient Disposition: Home, Self-Care Time of Disposition Decision: 09:57 Condition: Good Prescriptions / Home Meds: No Action atorvastatin 20 mg tablet 20 mg PO .QHS baclofen 20 mg tablet 20 mg PO BID ergocalciferol (vitamin D2) 1,250 mcg (50,000 unit) capsule 50,000 unit PO QWEEK duloxetine 30 mg capsule,delayed release(DR/EC) 60 mg PO .QHS pregabalin 300 mg capsule 300 mg PO BID diclofenac sodium 75 mg tablet,delayed release (DR/EC) 75 mg PO BID PRN (Reason: pain) Qty: 14 0RF Zeposia 0.92 mg capsule 0.92 mg PO DAILY lidocaine 5 % adhesive patch,medicated 1 patch topical Q24H ketorolac 10 mg tablet 10 mg PO Q6H PRN (Reason: pain) Print Language: Bulgarian Instructions: Musculoskeletal Pain (ED) Referrals: Physician,Non-Staff, MD [Primary Care Provider] - 1 week Discharge Date/Time: 10/19/24 10:18
== END 2024-10-19 10:18 | disposition home or self-care (01) ==
PROVIDERS: Emergency Provider Emergency Medicine
DX: R53.1 Weakness (principal); R52 Pain, unspecified; G35 Multiple sclerosis
CPT/HCPCS: 96372; 99284; J1885; J2360